=== PATIENT | male | born 1950 | race Hispanic/Latino ===

== ENCOUNTER 2017-02-09 08:46 | Emergency (ER) | payer MEDICARE, BC ==
[2017-02-09 08:46] VITALS: PULSE 52
[2017-02-09 08:52] VITALS: BP 128/80; PULSE 85; RESP 16; TEMP 97.8; O2SAT 99; BMI 29.2
--- NOTE | 2017-02-09 09:36 | ED PDOC ---
Arrival/HPI - General Chief Complaint: Abdominal Pain Time Seen by Provider: 02/09/17 08:58 Historian: Patient - History of Present Illness Narrative History of Present Illness (Text): 02/09/17 09:28 Titus Sunshine is a 66 year old male, with a history of chronic kidney disease, neurogenic bladder, recurrent urinary tract infection, CAD, peripheral vascular disease, diabetes, and colovesical fistula, presents to the emergency department for evaluation of a bulge at colostomy reversal incision site. States he has been noticing the bulge on and off over the past week, but denies any pain to the area. Reports he has normal bowel movements. Denies any nausea, vomiting, diarrhea, fever, chills, chest pain, difficulty breathing, urinary symptoms, or any other complaints at this time. Time/Duration: 1 week Symptom Onset: Gradual Symptom Course: Improving Severity Level: Mild Activities at Onset: Light Context: Home Past Medical History - Provider Review Nursing Documentation Reviewed: Yes - Infectious Disease Hx of Infectious Diseases: None - Tetanus Immunization Tetanus Immunization: Unknown - Cardiac Hx Cardiac Disorders: Yes (CAD; Afib) Hx Hypertension: Yes - Pulmonary Hx Respiratory Disorders: Yes Hx Chronic Obstructive Pulmonary Disease (COPD): Yes - Neurological Hx Neurological Disorder: Yes HX Cerebrovascular Accident: Yes - HEENT Hx HEENT Disorder: Yes (wears glasses) - Renal Hx Renal Disorder: Yes Hx Renal Failure: Yes (CKD) - Endocrine/Metabolic Hx Endocrine Disorders: Yes Hx Diabetes Mellitus Type 2: Yes - Hematological/Oncological Hx Blood Disorders: Yes (clumping platlets) - Integumentary Hx Dermatological Disorder: Yes Other/Comment: Left lower extremity partial amplutation. left lower back/ buttock 2cm round healed wound, not open, large scar to center of abdomen from previous colonoscopy reversal, not open - Musculoskeletal/Rheumatological Hx Musculoskeletal Disorders: Yes Hx Falls: Yes - Gastrointestinal Hx Gastrointestinal Disorders: Yes - Genitourinary/Gynecological Hx Genitourinary Disorders: No Hx Reproductive Disorders: No - Psychiatric Hx Psychophysiologic Disorder: No Hx Depression: No Hx Emotional Abuse: No Hx Physical Abuse: No Hx Substance Use: No - Surgical History Hx Amputation: Yes (all toes left foot, rt great toe) Hx Cardiac Catheterization: Yes Hx Coronary Stent: Yes - Anesthesia Hx Anesthesia Reactions: No Hx Malignant Hyperthermia: No - Suicidal Assessment Feels Threatened In Home Enviroment: No Family/Social History - Physician Review Nursing Documentation Reviewed: Yes Family/Social History: No Known Family HX Smoking Status: Former Smoker Hx Alcohol Use: Yes Hx Substance Use: No Hx Substance Use Treatment: No Allergies/Home Meds Allergies/Adverse Reactions: Allergies ceftriaxone sodium [From Rocephin] Allergy (Verified 02/09/17 08:53) ITCHING Home Medications: Home Meds Medication Instructions Recorded Confirmed Ascorbate Calcium [Vitamin C] 500 mg PO DAILY 07/11/16 02/09/17 Digoxin [Lanoxin] 125 mcg PO DAILY 07/11/16 02/09/17 Metoprolol Tartrate [Lopressor] 50 mg PO BID 07/11/16 02/09/17 Furosemide [Lasix] 40 mg PO QAM 09/17/16 02/09/17 Drisdol 50,000 Intl Units Cap 50,000 units PO QWK 09/18/16 02/09/17 Sevelamer [Renagel] 800 mg PO ACTID 09/18/16 02/09/17 amLODIPine [Norvasc] 5 mg PO DAILY 09/18/16 02/09/17 Physical Exam - Physical Exam Narrative Physical Exam (Text): - Review of Systems Constitutional: Normal. absent: Fatigue, Weight Change, Fevers Eyes: Normal ENT: Normal Respiratory: Normal absent: SOB, Cough, Sputum Cardiovascular: Normal absent: Chest pain, Palpitations, Syncope Gastrointestinal: Present: Incisional hernia absent: Abdominal pain, Diarrhea, Nausea, Vomiting Genitourinary: Normal. absent: Dysuria, Frequency, Hematuria Musculoskeletal: Normal. absent: Arthralgias, Back Pain, Neck Pain Skin: Normal Neurological: Normal absent: Focal Weakness Endocrine: Normal Hemo/Lymphatic: Normal Psychiatric: Normal - Physical exam Patient appears age appropriate, speaking full sentences without difficulty - Systems Exam Head: Present: Atraumatic, Normocephalic Pupils: Present: PERRL Extraocular Muscles: Present: EOMI Conjunctiva: Present: Normal Mouth: Present: Moist Mucous Membranes Neck: Present: Normal Range of Motion. No: MIDLINE TENDERNESS, Paraspinal Tenderness Respiratory/Chest: Present: Clear to Auscultation, Good Air Exchange. No: Respiratory Distress, Accessory Muscle Use, Tachypneic Cardiovascular: Present: Regular Rate and Rhythm, Normal S1, S2, Peripheral Pulses Present. No: Murmurs Abdomen: Present: Normal Bowel Sounds, reducible incisional hernia which is non- tender No: Tenderness, Peritoneal Signs, Rebound, Guarding, Distention Back: Present: Normal Inspection. No: Midline Tenderness, Paraspinal Tenderness Upper Extremity: Present: Normal Inspection. No: Cyanosis, Edema Lower Extremity: Present: Normal Inspection. No: Edema Neurological: Present: GCS=15, Speech Normal, cranial nerves II through XII fully intact with no cerebellar abnormality, neuro-sensory fully intact. No focal neurological deficits. Skin: Present: Warm, Dry, Normal Color. No: Rashes Lymphatic: Present: OX3, NI, NC Psychiatric: Present: Alert, Oriented x 3, Normal Insight, Normal Concentration Vital Signs Reviewed: Yes Vital Signs Temp Pulse Resp BP Pulse Ox 02/09/17 08:47 97.8 F 85 16 128/80 99 Temperature: Afebrile Blood Pressure: Normal Pulse: Regular Respiratory Rate: Normal Appearance: Positive for: Well-Appearing, Non-Toxic, Comfortable Pain Distress: None Mental Status: Positive for: Alert and Oriented X 3 Medical Decision Making ED Course and Treatment: 02/09/17 09:37 Impression: A 66 year old male who presents to the emergency department complaining of incisional hernia for past week. Reports he has normal bowel movement without nausea or vomiting, reports good appetite and passing flatus. On PE, there is a reducible incisional hernia which is non-tender, otherwise unremarkable. Differential Diagnosis include but are not limited to: hernia Plan: -- CT abdomen Pelvis -- Reassess and disposition Progress Notes: 02/09/17 10:44 CT abdomen pelvis results reviewed: IMPRESSION: Extensive right nephrolithiasis with peripelvic and periureteral fat infiltration. Calculi extend into the renal pelvis with proximal right hydronephrosis. Findings severely worsened since the prior examination. Additional periureteral fat infiltration in the left proximal ureter. Anterior abdominal wall hernia containing omental fat and nonobstructed or strangulated bowel loops measuring roughly 11 centimeters in transverse dimension. 02/09/17 10:[address] renal read. Patient also complaining of increased urinary frequency. Will order Urinalysis and urine culture. evaluated the patient bedside, agrees with dc home. UA ordered. 02/09/17 11:07 pt will be dc'd home with abx for UTI Dr. Frost states pt has an appt with his urologist tmr pt tolerating PO, states he has no abd pain, feels comf being dc'd home with outpatient f/u Pt states he understands to return to the ER right away for new or worsening symptoms or for inability to f/u with PMD or specialist as instructed. Patient states that he fully agrees with and understands discharge instructions. States that he agrees with the plan and disposition. Verbalized and repeated discharge instructions and plan. I have given the patient opportunity to ask any additional questions. 02/09/17 11:59 due to pt's risk factors and previous PMHx, his rx changed to levaquin and electronically transferred to [facility] - Lab Interpretations Lab Results: Lab Results 02/09/17 10:49: Urine Color Yellow, Urine Appearance Cloudy, Urine pH 6.5, Ur Specific [place] 1.020, Urine Protein 100 H, Urine Glucose (UA) Negative, Urine Ketones Negative, Urine Blood Large H, Urine Nitrate Negative, Urine Bilirubin Negative, Urine Urobilinogen 0.2, Ur Leukocyte Esterase Moderate H, Urine RBC 15 - 20, Urine WBC Tntc, Ur Epithelial Cells 4 - 5 - RAD Interpretation Narrative RAD Interpretations (Text): PROCEDURE: CT Abdomen and Pelvis without intravenous contrast Interpreted by : Bryan Finch MD FINDINGS: LOWER THORAX: Unremarkable. LIVER: Unremarkable. No gross lesion or ductal dilatation. GALLBLADDER AND BILE DUCTS: Unremarkable. PANCREAS: Unremarkable. No gross lesion or ductal dilatation. SPLEEN: Unremarkable. ADRENALS: Unremarkable. No mass. KIDNEYS AND URETERS: Extensive right nephrolithiasis with peripelvic and periureteral fat infiltration. Calculi extend into the renal pelvis with proximal right hydronephrosis. Findings severely worsened since the prior examination. Additional periureteral fat infiltration in the left proximal ureter. VASCULATURE: Unremarkable. No aortic aneurysm. BOWEL: Unremarkable. No obstruction. No gross mural thickening. APPENDIX: Unremarkable. Normal appendix. PERITONEUM: Unremarkable. No free fluid. No free air. LYMPH NODES: Unremarkable. No enlarged lymph nodes. BLADDER: Diffuse circumferential bladder wall thickening . REPRODUCTIVE: Unremarkable. BONES: No acute fracture. OTHER FINDINGS: Anterior abdominal wall hernia containing omental fat and nonobstructed or strangulated bowel loops measuring roughly 11 centimeters in transverse dimension. IMPRESSION: Extensive right nephrolithiasis with peripelvic and periureteral fat infiltration. Calculi extend into the renal pelvis with proximal right hydronephrosis. Findings severely worsened since the prior examination. Additional periureteral fat infiltration in the left proximal ureter. Anterior abdominal wall hernia containing omental fat and nonobstructed or strangulated bowel loops measuring roughly 11 centimeters in transverse dimension. Radiology Orders: 02/09/17 09:08 ABD & PELVIS W/O PO OR IV CONT [CT] Stat Purchasing/Receiving: Radiologist - Mosheibgautam Statement The provider has reviewed the documentation as recorded by the Joao Angeles Provider Attestation: All medical record entries made by the Joao were at my direction and personally dictated by me. I have reviewed the chart and agree that the record accurately reflects my personal performance of the history, physical exam, medical decision making, and the department course for this patient. I have also personally directed, reviewed, and agree with the discharge instructions and disposition. Disposition/Present on Arrival - Present on Arrival Any Indicators Present on Arrival: No History of DVT/PE: No History of Uncontrolled Diabetes: Yes Urinary Catheter: No History of Decub. Ulcer: No History Surgical Site Infection Following: CABG - Mediastinitis - Disposition Have Diagnosis and Disposition been Completed?: Yes Diagnosis: Hernia Disposition: HOME/ ROUTINE Disposition Time: 11:23 Patient Plan: Discharge Condition: GOOD Discharge Instructions (ExitCare): Incisional Hernia (GEN), Urinary Tract Infection in Men (ED) Additional Instructions: PLEASE RETURN TO THE EMERGENCY DEPARTMENT FOR NEW OR WORSENING SYMPTOMS. RETURN RIGHT AWAY IF YOU CANNOT FOLLOW UP WITH YOUR PRIMARY CARE DOCTOR, CLINIC, OR SPECIALIST IN 1-2 DAYS. Prescriptions: levoFLOXacin [Levaquin] 750 mg PO DAILY #5 tab Referrals: Ana Frost MD [Primary Care Provider] - Follow up with primary Darien Moncada MD [Staff Provider] - Follow up with primary
--- NOTE | 2017-02-09 10:08 | CT ---
PROCEDURE: CT Abdomen and Pelvis without intravenous contrast HISTORY: hernia COMPARISON: 01/22/2016. TECHNIQUE: Technique. Contrast Dose: Radiation dose: Total exam DLP = 853 mGy-cm. This CT exam was performed using one or more of the following dose reduction techniques: Automated exposure control, adjustment of the mA and/or kV according to patient size, and/or use of iterative reconstruction technique. FINDINGS: LOWER THORAX: Unremarkable. LIVER: Unremarkable. No gross lesion or ductal dilatation. GALLBLADDER AND BILE DUCTS: Unremarkable. PANCREAS: Unremarkable. No gross lesion or ductal dilatation. SPLEEN: Unremarkable. ADRENALS: Unremarkable. No mass. KIDNEYS AND URETERS: Extensive right nephrolithiasis with peripelvic and periureteral fat infiltration. Calculi extend into the renal pelvis with proximal right hydronephrosis. Findings severely worsened since the prior examination. Additional periureteral fat infiltration in the left proximal ureter. VASCULATURE: Unremarkable. No aortic aneurysm. BOWEL: Unremarkable. No obstruction. No gross mural thickening. APPENDIX: Unremarkable. Normal appendix. PERITONEUM: Unremarkable. No free fluid. No free air. LYMPH NODES: Unremarkable. No enlarged lymph nodes. BLADDER: Diffuse circumferential bladder wall thickening . REPRODUCTIVE: Unremarkable. BONES: No acute fracture. OTHER FINDINGS: Anterior abdominal wall hernia containing omental fat and nonobstructed or strangulated bowel loops measuring roughly 11 centimeters in transverse dimension. IMPRESSION: Extensive right nephrolithiasis with peripelvic and periureteral fat infiltration. Calculi extend into the renal pelvis with proximal right hydronephrosis. Findings severely worsened since the prior examination. Additional periureteral fat infiltration in the left proximal ureter. Anterior abdominal wall hernia containing omental fat and nonobstructed or strangulated bowel loops measuring roughly 11 centimeters in transverse dimension.
[2017-02-09 10:57] LABS: PH,URINE 6.5 (4.7-8.0); URINE BILIRUBIN NEGATIVE (NEGATIVE); URINE BLOOD LARGE (NEGATIVE); URINE GLUCOSE (UA) NEGATIVE (NEGATIVE); URINE KETONE NEGATIVE (NEGATIVE); URINE LEUKOCYTE ESTERASE MODERATE Leu/uL (NEGATIVE); URINE PROTEIN 100 mg/dL (<30 mg/dL); URINE UROBILINOGEN 0.2 E.U./dL (<1 E.U./dL)
[2017-02-09 11:02] LABS: URINE APPEARANCE CLOUDY (CLEAR); URINE COLOR YELLOW (YELLOW); URINE RBC 15 - 20 /hpf (0-2); URINE WBC TNTC /hpf (0-6)
--- NOTE | 2017-02-09 16:05 | CP.PCM.CON ---
History of Present Illness - History of Present Illness History of Present Illness: General Surger Consult note for Dr. Moncada Consult reason: incisional hernia Pt is a 66 y/o M with PMH including rectal fistula s/p colostomy, rectal fistula repair, and colostomy reversal with colostomy hernia repair over 1 year ago who presented to the ED with an abdominal hernia. Patient states that he first felt a bulge in his ventral abdomen one week ago and that he noticed it was getting more firm. He spoke to his primary doctor, Dr. Frost, who suggested he come to the ED to get evaluated. Patient reports hernia does not get stuck and is not tender. Patient denies any abdominal pain, nausea, vomiting , diarrhea, constipation, fevers, chills, chest pain, and SOB. Reports regular BM's with stool of normal color and consistency without hematochezia or melena. CT of abdomen and pelvis in the ED showed a large incisional hernia containing bowel without any signs of obstruction, and extensive right nephrolithiasis. PMH: CAD, CKD, neurogenic bladder, recurrent UTI's, PVD, DM PSH: colostomy creation, rectal fistula repair, colostomy reversal with colostomy hernia repair ALL: ceftriaxone Review of Systems - Review of Systems All systems: reviewed and no additional remarkable complaints except (as per HPI ) - Constitutional Constitutional: As Per HPI - Cardiovascular Cardiovascular: absent: Chest Pain, Chest Pain at Rest - Respiratory Respiratory: absent: Cough, Dyspnea, Wheezing - Gastrointestinal Gastrointestinal: As Per HPI - Genitourinary Genitourinary: Urinary Frequency, Freq UTI. absent: Dysuria, Hematuria - Musculoskeletal Musculoskeletal: Radiating Pain into Limb. absent: Numbness, Tingling - Integumentary Integumentary: absent: Lesions, Skin Ulcer - Neurological Neurological: absent: Numbness, Tingling - Endocrine Endocrine: Polyuria Past Patient History - Infectious Disease Hx of Infectious Diseases: None - Tetanus Immunizations Tetanus Immunization: Unknown - Past Social History Smoking Status: Former Smoker - CARDIAC Hx Cardiac Disorders: Yes (CAD; Afib) Hx Hypertension: Yes - PULMONARY Hx Respiratory Disorders: Yes Hx Chronic Obstructive Pulmonary Disease (COPD): Yes - NEUROLOGICAL Hx Neurological Disorder: Yes HX Cerebrovascular Accident: Yes - HEENT Hx HEENT Problems: Yes (wears glasses) - RENAL Hx Chronic Kidney Disease: Yes Hx Renal Failure: Yes (CKD) - ENDOCRINE/METABOLIC Hx Endocrine Disorders: Yes Hx Diabetes Mellitus Type 2: Yes - HEMATOLOGICAL/ONCOLOGICAL Hx Blood Disorders: Yes (clumping platlets) - INTEGUMENTARY Hx Dermatological Problems: Yes Other/Comment: Left lower extremity partial amplutation. left lower back/ buttock 2cm round healed wound, not open, large scar to center of abdomen from previous colonoscopy reversal, not open - MUSCULOSKELETAL/RHEUMATOLOGICAL Hx Musculoskeletal Disorders: Yes Hx Falls: Yes - GASTROINTESTINAL Hx Gastrointestinal Disorders: Yes - GENITOURINARY/GYNECOLOGICAL Hx Genitourinary Disorders: No Hx Reproductive Disorders: No - PSYCHIATRIC Hx Psychophysiologic Disorder: No Hx Depression: No Hx Emotional Abuse: No Hx Physical Abuse: No Hx Substance Use: No - SURGICAL HISTORY Hx Amputation: Yes (all toes left foot, rt great toe) Hx Cardiac Catheterization: Yes Hx Coronary Stent: Yes - ANESTHESIA Hx Anesthesia Reactions: No Hx Malignant Hyperthermia: No Meds Home Medications: Home Medication List Medication Instructions Recorded Confirmed Type levoFLOXacin [Levaquin] 750 mg PO DAILY #5 tab 02/09/17 Rx Allergies/Adverse Reactions: Allergies Allergy/AdvReac Type Severity Reaction Status Date / Time ceftriaxone sodium Allergy ITCHING Verified 02/09/17 08:53 [From Rocephin] Physical Exam - Constitutional Appears: Well, Non-toxic, No Acute Distress - Head Exam Head Exam: ATRAUMATIC, NORMOCEPHALIC - Eye Exam Eye Exam: Normal appearance. absent: Conjunctival injection, Scleral icterus - ENT Exam ENT Exam: Mucous Membranes Moist, Normal Oropharynx - Respiratory Exam Respiratory Exam: NORMAL BREATHING PATTERN. absent: Accessory Muscle Use, Respiratory Distress - Cardiovascular Exam Cardiovascular Exam: RRR - GI/Abdominal Exam GI & Abdominal Exam: Hernia (large incisional hernia on the central abdomen just superior to the umbilicus, reducible, non-tender, non-erythematous), Soft. absent: Distended, Tenderness - Extremities Exam Extremities exam: Positive for: pedal pulses present. Negative for: calf tenderness, pedal edema - Back Exam Back exam: NORMAL INSPECTION. absent: CVA tenderness (L), CVA tenderness (R) - Neurological Exam Neurological exam: Alert, Oriented x3 - Psychiatric Exam Psychiatric exam: Normal Affect, Normal Mood - Skin Skin Exam: Dry, Intact, Normal Color, Warm Results - Vital Signs Recent Vital Signs: Last Vital Signs Temp 97.8 F 02/09/17 08:47 Pulse 85 02/09/17 08:47 Resp 16 02/09/17 08:47 BP 128/80 02/09/17 08:47 Pulse Ox 99 02/09/17 08:47 - Labs Labs: Laboratory Results - last 24 hr 02/09/17 10:49 Urine Color Yellow Urine Appearance Cloudy Urine pH 6.5 Ur Specific [place] 1.020 Urine Protein 100 H Urine Glucose (UA) Negative Urine Ketones Negative Urine Blood Large H Urine Nitrate Negative Urine Bilirubin Negative Urine Urobilinogen 0.2 Ur Leukocyte Esterase Moderate H Urine RBC 15 - 20 Urine WBC Tntc Ur Epithelial Cells 4 - 5 Assessment & Plan - Assessment and Plan (Free Text) Assessment: 66M with a PSH of a colostomy for a rectal fistula and colostomy reversal 1 year ago with a current abdominal incisional hernia Hernia is asymptomatic No sign of bowel obstruction on CT Normal bowel function intact Plan: No indication for emergent surgical intervention Patient should follow up with Dr. Moncada in his office for further evaluation and planning Thank you for this consult Discussed with Dr. Antwan Ott, PGY1
== END 2017-02-09 11:57 | disposition home or self-care (01) ==
LOC: ED 08:46
DX: K43.2 Incisional hernia without obstruction or gangrene (principal); I12.9 Hypertensive chronic kidney disease with stage 1 through stage 4 chronic kidney disease, or unspecified chronic kidney disease; N18.9 Chronic kidney disease, unspecified; Z87.891 Personal history of nicotine dependence

== ENCOUNTER 2017-12-06 08:29 | Inpatient (IN) | payer MEDICARE, BC ==
[2017-12-06 08:30] VITALS: PULSE 52; BMI 29.2
--- NOTE | 2017-12-06 09:50 | ED PDOC ---
Arrival/HPI - General Chief Complaint: Male Genitourinary Time Seen by Provider: 12/06/17 09:39 Historian: Patient - History of Present Illness Narrative History of Present Illness (Text): 12/06/17 09:49 Titus Sunshine is a 67 year old male, with a history of chronic kidney disease, neurogenic bladder, recurrent urinary tract infection, CAD, peripheral vascular disease, diabetes, and colovesical fistula, presents to the emergency department for evaluation of hematuria x 4 weeks. Patient also noted burning sensation when he urinates within last 2 days. Patient also noted b/l groin rash x 3 weeks. Patient denies fever, chills, flank pain, n/v, abdominal or pelvic pain. Time/Duration: Other (see hpi) Context: Home Past Medical History - Provider Review Nursing Documentation Reviewed: Yes - Infectious Disease Hx of Infectious Diseases: None - Tetanus Immunization Tetanus Immunization: Unknown - Cardiac Hx Cardiac Disorders: Yes (CAD; Afib) Hx Hypertension: Yes - Pulmonary Hx Respiratory Disorders: Yes Hx Chronic Obstructive Pulmonary Disease (COPD): Yes - Neurological Hx Neurological Disorder: Yes HX Cerebrovascular Accident: Yes - HEENT Hx HEENT Disorder: Yes (wears glasses) - Renal Hx Renal Disorder: Yes Hx Renal Failure: Yes (CKD) - Endocrine/Metabolic Hx Endocrine Disorders: Yes Hx Diabetes Mellitus Type 2: Yes - Hematological/Oncological Hx Blood Disorders: Yes (clumping platlets) - Integumentary Hx Dermatological Disorder: Yes - Musculoskeletal/Rheumatological Hx Musculoskeletal Disorders: Yes Hx Falls: Yes - Gastrointestinal Hx Gastrointestinal Disorders: Yes Hx Colostomy: Yes - Genitourinary/Gynecological Hx Genitourinary Disorders: No Hx Reproductive Disorders: No - Psychiatric Hx Psychophysiologic Disorder: No Hx Depression: No Hx Emotional Abuse: No Hx Physical Abuse: No Hx Substance Use: No - Surgical History Hx Amputation: Yes (all toes left foot, rt great toe) Hx Cardiac Catheterization: Yes Hx Coronary Stent: Yes - Anesthesia Hx Anesthesia Reactions: No Hx Malignant Hyperthermia: No - Suicidal Assessment Feels Threatened In Home Enviroment: No Family/Social History - Physician Review Nursing Documentation Reviewed: Yes Family/Social History: Other (noncontributory) Smoking Status: Former Smoker Hx Alcohol Use: Yes Hx Substance Use: No Hx Substance Use Treatment: No Allergies/Home Meds Allergies/Adverse Reactions: Allergies ceftriaxone sodium [From Rocephin] Allergy (Verified 12/06/17 09:37) ITCHING Home Medications: Home Meds Medication Instructions Recorded Confirmed Metoprolol Tartrate [Lopressor] 75 mg PO BID 07/11/16 12/06/17 Furosemide [Lasix] 40 mg PO QAM 09/17/16 12/06/17 Drisdol 50,000 Intl Units Cap 50,000 units PO QWK 09/18/16 12/06/17 Sevelamer [Renagel] 800 mg PO ACTID 09/18/16 12/06/17 amLODIPine [Norvasc] 5 mg PO DAILY 09/18/16 12/06/17 Review of Systems - Review of Systems Constitutional: Normal. absent: Fatigue, Weight Change, Fevers Eyes: Normal ENT: Normal Respiratory: Normal Cardiovascular: Normal Gastrointestinal: Normal. absent: Abdominal Pain, Constipation, Diarrhea, Nausea, Vomiting Genitourinary Male: Dysuria, Other ((+) hematuria) Musculoskeletal: Normal. absent: Back Pain, Neck Pain Skin: Rash. absent: Cellulitis Neurological: Normal Endocrine: Normal Hemo/Lymphatic: Normal Psychiatric: Normal Physical Exam Vital Signs Temp Pulse Resp BP Pulse Ox 12/06/17 14:35 84 18 99 12/06/17 11:37 86 18 101/65 99 12/06/17 09:04 97.6 F 90 18 99/64 L 99 Temperature: Afebrile Blood Pressure: Normal Pulse: Regular Respiratory Rate: Normal Appearance: Positive for: Well-Appearing, Non-Toxic, Comfortable Pain Distress: None Mental Status: Positive for: Alert and Oriented X 3 - Systems Exam Head: Present: Atraumatic, Normocephalic Pupils: Present: PERRL Extroacular Muscles: Present: EOMI Conjunctiva: Present: Normal Mouth: Present: Moist Mucous Membranes Neck: Present: Normal Range of Motion Respiratory/Chest: Present: Clear to Auscultation, Good Air Exchange. No: Respiratory Distress, Accessory Muscle Use Cardiovascular: Present: Regular Rate and Rhythm, Normal S1, S2. No: Murmurs Abdomen: Present: Normal Bowel Sounds. No: Tenderness, Distention, Peritoneal Signs, Rebound, Guarding Genitourinary Male: Present: Other (B/L cutaneous candidiasis. No penile discharge or bleeding). No: Testicle Tenderness, Penile Swelling, Erythema, Testicle Swelling Back: Present: Normal Inspection Upper Extremity: Present: Normal Inspection, Normal ROM. No: Cyanosis, Edema Lower Extremity: Present: Normal Inspection, Normal ROM. No: Edema Neurological: Present: GCS=15, CN II-XII Intact, Speech Normal, Motor Func Grossly Intact, Normal Sensory Function, Normal Cerebellar Funct, Gait Normal Skin: Present: Warm, Dry, Normal Color. No: Rashes Psychiatric: Present: Alert, Oriented x 3, Normal Insight, Normal Concentration Medical Decision Making ED Course and Treatment: 12/06/17 12:[address] Bergman ID doctor regarding pulmonary infiltrates, cystitis. He said he knows patient well. He stated he will put the ABX order. 12/06/17 13:[address] Frost regarding patient complain , and medical findings. He recommended to call Dr. Wing to admit patient under her service. 12/06/17 14:[address] Wing regarding patient complains, ct findings, labs. She agreed with plan for admission 12/06/17 14:[address] Ochoa, vocational rehabilitation specialist. She stated she came to see patient earlier today, and she is aware of admission. Re-evaluation Time: 12:53 Reassessment Condition: Re-examined, Improving,but remains with symptoms - Lab Interpretations Lab Results: 12/06/17 11:40 12/06/17 11:40 Lab Results 12/06/17 11:40: pO2 42, VBG pH 7.22 L, VBG pCO2 42.0, VBG HCO3 17.2 L, VBG Total CO2 18.5 L, VBG O2 Sat (Calc) 78.9 H, VBG Base Excess -10.1 L, VBG Potassium 4.9, Sodium 138.0, Chloride 112.0 H, Glucose 119 H, Lactate 0.9, FiO2 21.0, Venous Blood Potassium 4.9 12/06/17 11:40: Sodium 142, Chloride 114 H, Potassium 4.8, Carbon Dioxide 15 L, Anion Gap 18, BUN 64 H, Creatinine 5.1 H, Est GFR ( Amer) 14, Est GFR ( Non-Af Amer) 11, Random Glucose 121 H, Calcium 9.2, Total Bilirubin 0.3, AST 18 , ALT 16, Alkaline Phosphatase 86, Total Protein 8.5 H, Albumin 3.8, Globulin 4.7, Albumin/Globulin Ratio 0.8 L, Lipase 236 12/06/17 11:40: PT 18.2 H, INR 1.57 H, APTT 35.0 12/06/17 11:40: WBC 5.4 D, RBC 3.49 L, Hgb 10.5 L, Hct 32.1 L, MCV 92.0, MCH 30.1, MCHC 32.7, RDW 14.2, Plt Count 163, MPV 9.3, Gran % 67.5, Lymph % (Auto) 18.0 L, [place] % (Auto) 10.2 H, Eos % (Auto) 3.9, Baso % (Auto) 0.4, Gran # 3.63, Lymph # (Auto) 1.0 L, [place] # (Auto) 0.6, Eos # (Auto) 0.2, Baso # (Auto) 0.02 12/06/17 10:00: Urine Color Light brown, Urine Appearance Cloudy, Urine pH 6.0, Ur Specific [place] 1.025, Urine Protein >=300 H, Urine Glucose (UA) Negative, Urine Ketones Trace H, Urine Blood Large H, Urine Nitrate Positive H, Urine Bilirubin Small H, Urine Urobilinogen 1.0 H, Ur Leukocyte Esterase Large H, Urine RBC Tntc, Urine WBC Tntc, Urine Bacteria Large I have reviewed the lab results: Yes Interpretation: Abnormal lab values - RAD Interpretation Narrative RAD Interpretations (Text): PROCEDURE: CT Abdomen and Pelvis without intravenous contrast HISTORY: hematuria COMPARISON: 02/09/2017 TECHNIQUE: Without contrast.. Contrast Dose: 0 Radiation dose: Total exam DLP = 893.17 mGy-cm. This CT exam was performed using one or more of the following dose reduction techniques: Automated exposure control, adjustment of the mA and/or kV according to patient size, and/or use of iterative reconstruction technique. FINDINGS: LOWER THORAX: Right middle lobe pulmonary infiltrate. New since prior examination. Mild cardiomegaly. Permanent pacemaker. LIVER: Unremarkable. No gross lesion or ductal dilatation. GALLBLADDER AND BILE DUCTS: Gallbladder contracted. No calcified gallstones. PANCREAS: Unremarkable. No gross lesion or ductal dilatation. SPLEEN: Unremarkable. ADRENALS: Unremarkable. No mass. KIDNEYS AND URETERS: Previously noted large right upper pole renal calculi are largely resolved. There are innumerable calculi within the right renal pelvis and proximal right ureter. Right lower pole nonobstructing calculi. Mild right hydronephrosis. Extensive infiltration of the fat about the right renal pelvis and proximal right ureter common nonspecific. No renal mass. No left renal calculus or hydronephrosis. No perinephric fluid. VASCULATURE: Unremarkable. No aortic aneurysm. BOWEL: Unremarkable. No obstruction. No gross mural thickening. APPENDIX: Unremarkable. Normal appendix. PERITONEUM: Diastases recti. No argelia ventral hernia. LYMPH NODES: Unremarkable. No enlarged lymph nodes. BLADDER: Thickened bladder wall, slightly irregular. Consider further evaluation to rule out neoplasm or cystitis. REPRODUCTIVE: Status post hysterectomy BONES: No acute fracture. Multilevel degenerative disc disease. OTHER FINDINGS: None. IMPRESSION: New right middle lobe pulmonary infiltrate. Rule out pneumonia. Mild right hydronephrosis with multiple calculi in renal pelvis and proximal right ureter. Decrease in the extent of large right upper pole calculi noted on prior examination. Question is raised of possible prior interval ESWL infiltration of right peripelvic and proximal ureteral fat, nonspecific.Mildly irregular thickening of bladder wall. Rule out cystitis or neoplasm. Additional minor findings as above. Radiology Orders: 12/06/17 09:56 ABD & PELVIS W/O PO OR IV CONT [CT] Stat 12/06/17 12:43 CHEST PORTABLE [RAD] Stat - EKG Interpretation Interpreted by ED Physician: Yes (NSR @ 79bpm. No ST changes) Type: 12 lead EKG Comparison: No previous EKG avail. - Medication Orders Current Medication Orders: Meropenem 250 mg/ Sodium (Chloride) 100 mls @ 100 mls/hr IVPB Q12H [facility] PRN Reason: Protocol Stop: 12/15/17 13:01 Last Admin: 12/06/17 13:40 Dose: 100 mls/hr eMAR Start Stop Document 12/06/17 13:40 RG (Rec: 12/06/17 13:49 RG [id number] Intravenous Solution Start Date 12/06/17 Start Time 13:40 End Date 12/06/17 End time 14:51 Total Infusion Time 71 Sodium Bicarbonate 50 meq/ (Sodium Chloride) 1,050 mls @ 80 mls/hr IV .[id number] [facility] Discontinued Medications Nystatin (Mycostatin Oint) 1 gm TOP ONCE ONE Stop: 12/06/17 12:45 Last Admin: 12/06/17 13:47 Dose: 1 gm Disposition/Present on Arrival - Present on Arrival Any Indicators Present on Arrival: No History of DVT/PE: No History of Uncontrolled Diabetes: Yes Urinary Catheter: No History of Decub. Ulcer: No History Surgical Site Infection Following: CABG - Mediastinitis - Disposition Have Diagnosis and Disposition been Completed?: Yes Diagnosis: Cystitis, Pneumonia, Cutaneous candidiasis Disposition: HOSPITALIZED Disposition Time: 15:06 Patient Plan: Admission Patient Problems: Current Active Problems Problem Status Onset Cystitis Acute Pneumonia Acute Condition: STABLE
[2017-12-06 10:24] LABS: URINE BILIRUBIN SMALL (NEGATIVE); URINE BLOOD LARGE (NEGATIVE); URINE GLUCOSE (UA) NEGATIVE (NEGATIVE); URINE LEUKOCYTE ESTERASE LARGE Leu/uL (NEGATIVE); URINE NITRATE POSITIVE (NEGATIVE); URINE PROTEIN >=300 mg/dL (<30 mg/dL)
[2017-12-06 10:25] LABS: URINE APPEARANCE CLOUDY (CLEAR); URINE COLOR LIGHT BROWN (YELLOW)
[2017-12-06 10:32] LABS: URINE BACTERIA LARGE (NEG); URINE RBC TNTC /hpf (0-2); URINE WBC TNTC /hpf (0-6)
[2017-12-06 12:10] LABS: VENOUS BLOOD GAS BASE EXCESS -10.1 mmol/L (0.0-2.0); VENOUS BLOOD GAS PO2 42 mm/Hg (30-55); VENOUS BLOOD PH 7.22 (7.32-7.43)
[2017-12-06 12:14] LABS: ALB/GLOB RATIO 0.8 (1.1-1.8); ALBUMIN 3.8 g/dL (3.0-4.8); CALCIUM 9.2 mg/dL (8.4-10.5)
[2017-12-06 12:30] LABS: BASO # 0.02 K/mm3 (0.0-2.0); BASO % 0.4 % (0.0-3.0); EOS # 0.2 (0.0-0.7); EOS % 3.9 % (1.5-5.0); GRAN # 3.63 (1.4-6.5); GRAN % 67.5 % (50.0-68.0); HEMOGLOBIN 10.5 g/dL (14.0-18.0); MEAN CORPUSCULAR HEMOGLOBIN 30.1 pg (25.0-35.0); MEAN CORPUSCULAR HGB CONC 32.7 g/dl (31.0-37.0); MEAN PLATELET VOLUME 9.3 fl (7.0-11.0); MONO # 0.6 (0.1-0.6); MONO % 10.2 % (1.0-6.0); RBC 3.49 10^6/uL (3.5-6.1); RED CELL DISTRIBUTION WIDTH 14.2 % (11.5-14.5); WHITE BLOOD COUNT 5.4 10^3/ul (4.5-11.0)
[2017-12-06 12:34] LABS: INR 1.57 (0.93-1.08); PROTHROMBIN TIME 18.2 SECONDS (9.4-12.5)
--- NOTE | 2017-12-06 12:39 | CT ---
PROCEDURE: CT Abdomen and Pelvis without intravenous contrast HISTORY: hematuria COMPARISON: 02/09/2017 TECHNIQUE: Without contrast.. Contrast Dose: 0 Radiation dose: Total exam DLP = 893.17 mGy-cm. This CT exam was performed using one or more of the following dose reduction techniques: Automated exposure control, adjustment of the mA and/or kV according to patient size, and/or use of iterative reconstruction technique. FINDINGS: LOWER THORAX: Right middle lobe pulmonary infiltrate. New since prior examination. Mild cardiomegaly. Permanent pacemaker. LIVER: Unremarkable. No gross lesion or ductal dilatation. GALLBLADDER AND BILE DUCTS: Gallbladder contracted. No calcified gallstones. PANCREAS: Unremarkable. No gross lesion or ductal dilatation. SPLEEN: Unremarkable. ADRENALS: Unremarkable. No mass. KIDNEYS AND URETERS: Previously noted large right upper pole renal calculi are largely resolved. There are innumerable calculi within the right renal pelvis and proximal right ureter. Right lower pole nonobstructing calculi. Mild right hydronephrosis. Extensive infiltration of the fat about the right renal pelvis and proximal right ureter common nonspecific. No renal mass. No left renal calculus or hydronephrosis. No perinephric fluid. VASCULATURE: Unremarkable. No aortic aneurysm. BOWEL: Unremarkable. No obstruction. No gross mural thickening. APPENDIX: Unremarkable. Normal appendix. PERITONEUM: Diastases recti. No argelia ventral hernia. LYMPH NODES: Unremarkable. No enlarged lymph nodes. BLADDER: Thickened bladder wall, slightly irregular. Consider further evaluation to rule out neoplasm or cystitis. REPRODUCTIVE: Status post hysterectomy BONES: No acute fracture. Multilevel degenerative disc disease. OTHER FINDINGS: None. IMPRESSION: New right middle lobe pulmonary infiltrate. Rule out pneumonia. Mild right hydronephrosis with multiple calculi in renal pelvis and proximal right ureter. Decrease in the extent of large right upper pole calculi noted on prior examination. Question is raised of possible prior interval ESWL infiltration of right peripelvic and proximal ureteral fat, nonspecific.Mildly irregular thickening of bladder wall. Rule out cystitis or neoplasm. Additional minor findings as above.
[2017-12-06] MEDS ORDERED: Nystatin 100,000 Units/gm Oint(30 gm) TOP ONE (12:44)
--- NOTE | 2017-12-06 13:51 | RAD ---
HISTORY: admission, PNA COMPARISON: 09/11/2016 FINDINGS: LUNGS: No active pulmonary disease. PLEURA: No significant pleural effusion identified, no pneumothorax apparent. CARDIOVASCULAR: Permanent pacemaker OSSEOUS STRUCTURES: No significant abnormalities. VISUALIZED UPPER ABDOMEN: Normal. OTHER FINDINGS: None. IMPRESSION: No active disease.
[2017-12-06] MEDS ORDERED: Pneumococcal 23-Valent Vaccine IM ONE (22:43)
[2017-12-06] MEDS ORDERED: Influenza Vaccine 60 mcg/0.5 mL SYR (4YR UP) IM ONE (22:43)
--- NOTE | 2017-12-07 00:43 | CON ---
DATE: 12/06/2017 REASON FOR CONSULTATION: Acute kidney injury superimposed on chronic kidney disease stage IV, hematuria, dysuria. HISTORY OF PRESENTING ILLNESS: A 67-year-old male, known to us from outpatient followup. The patient was sent to the emergency room because of complaints of blood in the urine for the last couple of weeks. He is also complaining of some burning in the urine. He has a known history of staghorn calculi. There is a history of hydronephrosis. Also has a history of chronic kidney disease stage IV. He denies any fevers, chills. Denies any abdominal pain. Denies any nausea or vomiting. Appetite is good. He is found to have elevated BUN of 64 and creatinine of 5.1 in the emergency room. WBC is 5.4, hemoglobin is 10.5. Urinalysis shows greater than 300 of protein, large blood, nitrite positive, leukocyte esterase large. CT of the abdomen and pelvis shows right middle lobe infiltrate, large right upper pole renal calculus, which was seen in the prior CT, not seen now. Multiple kidney stones within the right renal pelvis. Right hydronephrosis. PAST MEDICAL AND SURGICAL HISTORY: NIDDM, hypertension, sepsis, right hydronephrosis, pyelonephritis, hypertension, chronic kidney disease stage 5, multiple episodes of acute kidney injury, valvular heart disease, history of colostomy, history of colostomy reversal. FAMILY HISTORY: Noncontributory. SOCIAL HISTORY: No smoking, no alcohol use, no IV drug abuse. ALLERGIES: ROCEPHIN. REVIEW OF SYSTEMS: All systems are reviewed, pertinent positives as mentioned in the history of presenting illness, rest unremarkable. MEDICATIONS AT HOME: Amlodipine 5, Renagel 800 t.i.d., Lopressor 75 b.i.d., Lasix 40, daily, Drisdol. PHYSICAL EXAMINATION: GENERAL: Elderly male, lying in bed. VITAL SIGNS: Blood pressure 101/65, heart rate 86, respiratory rate 18, temperature 97.6. HEENT: Normocephalic, atraumatic, positive pallor. NECK: Supple. No JVD. LUNGS: Bilateral equal air entry. No rales. CARDIAC: S1, S2, regular rate and rhythm, no murmur, no rub. ABDOMEN: Obese, distended, soft, nontender, bowel sounds present. EXTREMITIES: No lower extremity edema. INTAKE AND OUTPUT: Not charted. LABORATORY DATA: WBC 5.4, hemoglobin 10.5, hematocrit 32, platelets 163. Sodium 142, potassium 4.8, chloride 114, CO2 of 15, BUN 64, creatinine 5.1, glucose 121, calcium 9.2, AST 18, ALT 16, albumin 3.8. Urinalysis: Light brown, cloudy, pH 6.0, specific gravity 1.025, protein greater than 300, glucose negative, ketones trace, blood large, nitrite positive, leukocyte esterase large. CURRENT MEDICATIONS: Meropenem 1 g q. 12. ASSESSMENT: 1. Acute kidney injury superimposed on chronic kidney disease stage IV. 2. Right hydronephrosis, right pyelonephritis, urosepsis. 3. Apa-hdaghyr-fnuhgryzn diabetes mellitus. 4. Hypertension. 5. Anemia of chronic kidney disease. 6. Hypernatremia. 7. Hyperchloremic metabolic acidosis. PLAN: 1. Followup cultures. 2. Antibiotics to cover for pyelonephritis. 3. Hypotonic IV fluids. 4. Monitor fingersticks. 5. Insulin coverage. 6. Strict intake and output. 7. Avoid nephrotoxins. Thank you for the courtesy of this consultation. We will follow this patient closely with you. Ana Ochoa MD
[2017-12-07 07:42] LABS: BASO # 0.03 K/mm3 (0.0-2.0); BASO % 0.7 % (0.0-3.0); EOS # 0.3 (0.0-0.7); EOS % 6.7 % (1.5-5.0); GRAN # 2.18 (1.4-6.5); GRAN % 54.4 % (50.0-68.0); HEMOGLOBIN 9.5 g/dL (14.0-18.0); LYMPH # 1.1 (1.2-3.4); LYMPH % 26.2 % (22.0-35.0); MEAN CORPUSCULAR HEMOGLOBIN 29.1 pg (25.0-35.0); MEAN CORPUSCULAR HGB CONC 31.7 g/dl (31.0-37.0); MEAN PLATELET VOLUME 9.4 fl (7.0-11.0); MONO # 0.5 (0.1-0.6); RBC 3.26 10^6/uL (3.5-6.1); RED CELL DISTRIBUTION WIDTH 14.1 % (11.5-14.5)
--- NOTE | 2017-12-07 07:45 | HP ---
HISTORY OF PRESENT ILLNESS: The patient is 67 years old, patient of Dr. 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 Ana Frost that the patient is having hematuria intermittently for almost a week. He was advised by Dr. Frost and go to emergency room, but because of his personal reasons, he was unable to come to the hospital. The patient states that he has been suffering for these issues for long time, but recently for a week or two, he was having blood in the urine and some abdominal discomfort. He also has some burning sensation when he urinates along with bilateral inguinal rash. He denies any fever or chills. No history of nausea or vomiting. Does complain of decreased appetite. Complaining of back pain. PAST MEDICAL HISTORY: He has significant past medical history positive for; 1. Severe peripheral vascular disease. 2. Non-insulin dependent diabetes. 3. History of neurogenic bladder. 4. History of nephrolithiasis. 5. History of vesico-colic fistula repair. 6. Ventral hernia. 7. History of coronary artery disease, status post angioplasty. 8. Status post cardiac cath in August of 2016, by Dr. Leach and at that point, he has pacemaker placed that was single chamber. ALLERGIES: HE IS ALLERGIC TO ROCEPHIN. MEDICATIONS AT HOME: He is on amlodipine 5 mg daily, Renagel 800 three times a day, metoprolol 75 b.i.d., Lasix 40 mg daily, and vitamin D. SOCIAL HISTORY: He socially drinks and history of smoking in the past. REVIEW OF SYSTEMS: Significant for suprapubic discomfort, right flank discomfort, and having blood in the urine. PHYSICAL EXAMINATION: GENERAL: He seems to be awake, alert, oriented, able to communicative, able to give all his important symptoms. VITAL SIGNS: He is afebrile, pulse 90, respirations 18, blood pressure 99/64. LUNGS: Bilateral fair airflow. No rhonchi or crackles. HEART: S1 and S2 audible. ABDOMEN: Soft. He has ventral hernia, reducible. Nontender. No rebound. No guarding. NEUROLOGIC: He is awake, alert, able to communicate. EXTREMITIES: Bilateral legs, +1 edema. LABORATORY DATA: WBC 5.4, hemoglobin 10.5, hematocrit 32.1, and platelets of 163. PT 18.2 and INR 1.57. Chemistry: Sodium 142, potassium 4.8, chloride 114, CO2 of 15, BUN 64, creatinine 5.1, and blood sugar of 121. LFTs are within normal limits. Total protein is 8.5. Urinalysis shows positive nitrites, large blood, large leukocyte, wbc's too numerous to count. The patient has CT scan of the abdomen and pelvis done that shows new right middle lobe pulmonary infiltrate, mild right hydronephrosis with multiple calculi in the renal pelvis and proximal right ureter right upper pole calculus noted on the prior exam. ASSESSMENT: 1. Right nephrolithiasis. 2. Hematuria. 3. Right lower lobe infiltrate. 4. Ventral hernia. 5. Renal insufficiency. 6. Non-insulin dependent diabetes. PLAN: The patient has been started on IV fluids. He is currently on meropenem. We will monitor his blood sugar. Analgesics as needed. We will resume his usual medications. We will follow up his CBC and CMP in a.m. Out of bed to chair and we will reevaluate in a.m. Emmanuel Wing MD
[2017-12-07 08:24] LABS: CALCIUM 8.8 mg/dL (8.4-10.5)
--- NOTE | 2017-12-07 08:44 | CARD ---
APPROVED REPORT EKG Measurement Heart [id number] CT [id number] <Conclusion> Normal sinus rhythm Small q in 3 NSSTW changes
[2017-12-07] MEDS: Nystatin 100,000 Units/gm Topical Pow(15 gm) TOP SCH (18:12)
--- NOTE | 2017-12-07 22:55 | CON ---
DATE: LOCATION: The patient is seen earlier today in 563, bed 2. CHIEF COMPLAINT: Hematuria x1 day. 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 He had a colostomy. He has had cardiac stents. He has got a pacemaker. HE IS ALLERGIC TO CEFTRIAXONE. He was admitted now with hematuria. He had a CAT scan, had finding of a right middle lobe infiltrate on the CAT scan. The patient does have weakness, minimal cough, low-grade fevers. REVIEW OF SYSTEMS: Reveals no abdominal pain, diarrhea or constipation. No headaches or blurred vision. PAST MEDICAL HISTORY: Significant for kidney disease, kidney stones, peripheral vascular disease, diabetes mellitus, psoas abscess, vertebral abscess, MRSA bacteremia, atrial fibrillation, hypertension, coronary artery disease. PAST SURGICAL HISTORY: Significant for colostomy, cardiac cath with stent placement, pacemaker. ALLERGIES: THE PATIENT IS ALLERGIC TO CEFTRIAXONE. MEDICATIONS AT HOME: Amlodipine, Renagel, metoprolol, Lasix and Drisdol. PHYSICAL EXAMINATION GENERAL: He is in bed, in no acute distress. VITAL SIGNS: Temperature of 99.2, heart rate of 74, respiratory rate of 20, blood pressure is 117/70, it was down to 99/64. HEENT: Unremarkable. NECK: Supple. LUNGS: Have decreased breath sounds. HEART: Normal S1 and S2. ABDOMEN: Soft, nontender. No organomegaly. No rebound or guarding. No masses. LABORATORY DATA: Reveals a white count of 5.4, hemoglobin of 10, platelets of 163. The patient has 67 granulocytosis and coagulation is noted and chemistries reveals a BUN of 64, creatinine of 5.1, glucose is 121 and urinalysis is noted with ebe-[id number] count wbcs, ird-rwlbdinu-kc count rbcs, large bacteria, positive nitrites, large blood, small bilirubin, greater than 300 protein. The patient had a CAT scan of the abdomen and pelvis, which is read by Dr. Allen Hernandez, which reveals the patient does have a new right middle lobe pulmonary infiltrate and the patient also with right hydronephrosis and calculi in the renal pelvis and proximal right ureter. ASSESSMENT AND PLAN: A 67-year-old male with extensive past medical history, admitted now with hematuria. 1. Urinary tract infection and cystitis with a right hydronephrosis and a calculi in the proximal right ureter. 2. Right middle lobe infiltrate with community-acquired pneumonia. Since the patient is allergic to CEFTRIAXONE, we will treat the patient with meropenem and doxycycline. Pending blood cultures, urine cultures, sputum cultures. We will also order a procalcitonin and we will make further recommendations upon availability of initial pancultures, procalcitonin level and Urology evaluation. Joe Bergman MD
[2017-12-08 07:03] LABS: BASO # 0.02 K/mm3 (0.0-2.0); BASO % 0.5 % (0.0-3.0); EOS # 0.2 (0.0-0.7); EOS % 5.1 % (1.5-5.0); GRAN # 2.46 (1.4-6.5); GRAN % 62.3 % (50.0-68.0); HEMOGLOBIN 9.4 g/dL (14.0-18.0); LYMPH # 0.8 (1.2-3.4); MEAN CELL VOLUME 90.9 fl (80.0-105.0); MEAN CORPUSCULAR HEMOGLOBIN 29.6 pg (25.0-35.0); MEAN CORPUSCULAR HGB CONC 32.5 g/dl (31.0-37.0); MEAN PLATELET VOLUME 9.2 fl (7.0-11.0); MONO # 0.4 (0.1-0.6); MONO % 11.1 % (1.0-6.0); RBC 3.18 10^6/uL (3.5-6.1); RED CELL DISTRIBUTION WIDTH 14.1 % (11.5-14.5)
[2017-12-08 07:12] LABS: CALCIUM 8.3 mg/dL (8.4-10.5)
--- NOTE | 2017-12-08 08:24 | CON ---
DATE: 12/06/2017 CHIEF COMPLAINT: Gross hematuria. HISTORY OF PRESENT ILLNESS: This is a 67-year-old male who is well known to me. The patient has had multiple prior admissions to [facility] with a multitude of medical issues including recurrent hematuria, kidney stones, severe peripheral vascular disease, non-insulin dependent diabetes, colovesical fistula which was repaired, cardiac catheterization with pacemaker placement. The patient reports, for a few weeks prior to hospitalization, he has been having intermittent gross hematuria. He denies any fever or chills. Denies any colic type symptoms. consultation was requested regarding the above. PAST MEDICAL HISTORY: Significant for peripheral vascular disease, non-insulin dependent diabetes, neurogenic bladder, kidney stones, history of colovesical fistula, ventral hernia, coronary artery disease, pacemaker placement. HOME MEDICATIONS: Include amlodipine, Renagel, metoprolol, Lasix and vitamin D. ALLERGIES: ALLERGIC TO ROCEPHIN. FAMILY HISTORY: Noncontributory. SOCIAL HISTORY: Positive for smoking and EtOH in the past. REVIEW OF SYSTEMS: The patient is currently seen in his room. He is awake and alert. He is in no acute distress. He is answering questions. He reports some light hematuria. Denies any dysuria. He does have mild urinary frequency. Denies any flank pain, fever or chills. Denies nausea or vomiting. Does report some cough. Denies any headaches or dizziness. Does report some weakness and lethargy, which are chronic. Other systems are negative. PHYSICAL EXAMINATION: GENERAL: The patient is awake, alert, no acute distress. VITAL SIGNS: He is afebrile, temperature of 98.6, pulse of 72, BP 120/76, respirations are 20. NECK: Supple. There is no adenopathy. CHEST: Reveals normal inspiratory effort with some rhonchi. CARDIAC: Shows positive S1, S2. There is trace peripheral edema noted. ABDOMEN: Soft, nontender, nondistended. There is no hepatosplenomegaly. There is no costovertebral angle tenderness. The bladder is not palpably distended. GENITOURINARY: Phallus is normal. Scrotum is normal. Testes are bilaterally descended, nontender, no masses. Epididymis are normal. LABORATORY DATA: GFR currently at 11, creatinine 5.1, and BUN 64. Urinalysis; positive nitrates, too numerous to count rbc's, too numerous to count wbc's. Urine culture not available. Gram stains, no growth after 24 hours. On radiologic exam, the patient had a CT scan, which showed the previously noted large right upper pole calculi have largely resolved. There are innumerable calculi in the right renal pelvis and proximal right ureter. Right lower pole nonobstructing calculi, mild right hydronephrosis with extensive infiltration of the fat around the right renal pelvis and proximal right ureter. There is no mass. There are no left renal stones or left hydronephrosis. There is thickened bladder wall, slightly irregular. IMPRESSION AND PLAN: This is a 67-year-old male with multiple medical issues, multiple hospitalizations, severe vascular disease. The patient has been seen in my office and was recommended to have procedures done to decrease the stone burden. He was sent for medical clearance, which he could never obtain, and the procedures were not done. Acutely at this time, he appears to be responding to IV fluids and IV antibiotics. It is unclear why he has such poor renal function, as his left kidney has no stones or evidence of obstruction. At this time, I would recommend a consultation with Dr. Allen Ellington for possible nephrostomy placement. Given the large stone burden, once the patient's condition has improved, I think he would do better with a percutaneous nephrolithotomy and removing all the stones, and then simply placing a stent from below. Given the large stone burden, it would be difficult to clear it from below, and would be easier to get at the stones directly through his kidney. Plan is to continue current treatment. We will discuss with Renal. The patient is further workup for possible pneumonia seen on chest x-ray. Antibiotics as per ID databases software consultant, and consult with Dr. Allen Ellington tomorrow. Justo Sotelo MD
--- NOTE | 2017-12-08 10:06 | PN ---
DATE: 12/07/2017 SUBJECTIVE: This is a 67-year-old male who was admitted to [facility]. The patient has a history of back pain, hematuria and dysuria for several weeks. He was seen by his beamer helper as an outpatient. Lab work was performed. Cultures of urine were also done and it was reported that the patient had extremely resistant E. coli bacteria with bacteriuria, pyuria and hematuria. He was advised admission into the hospital, but because of personal reasons, did not come to the Emergency Room until yesterday. He also states that in the last week to 10 days, he has been seen by his pacemaker physician, who is originally referred his medical device engineer. Apparently, he was told that there was some variation in his heart rhythm and he was tentatively scheduled for a stress test by his medical device engineer. He also underwent an echocardiogram, the results of which he is not aware of. He also states that he recently has been started on new medication, Xarelto and he denies any fever, chills, nausea, vomiting or diarrhea. SOCIAL HISTORY: He is a nonsmoker, nondrinker, non-drug user. ALLERGIES: HE HAS AN ALLERGY TO CEFTRIAXONE. PHYSICAL EXAMINATION: VITAL SIGNS: This morning show a temp of 98.6, his pulse is 72, his blood pressure is 120/76, his respiratory rate is 20, his oxygen saturation 96% on room air. NECK: Supple. LUNGS: Show some scattered rhonchi, more in the right than left. HEART: S1, S2, grade II/ systolic murmur. ABDOMEN: Obese, soft. Positive bowel sounds. He has a ventral hernia. He has a perineal rash. EXTREMITIES: Show no evidence of edema evidence of toe amputations on the left foot and on the right. He has severe peripheral vascular disease by history, chronic kidney disease, history of neurogenic bladder and self-catheterization at home, history of renal stones with right hydronephrosis, history of gluteal colo-fistula in the past, history of urosepsis, history of pneumonia, history of coronary artery disease, pacemaker, qlo-myfyssx-sumlhzvge diabetes, arteriosclerotic heart disease, hyperlipidemia. The patient was admitted into the hospital and initiated on IV antibiotics by Infectious Disease and by medications by the covering physician. He is going to be seen by Nephrology, was initiated the patient on IV fluids. Hold his Lasix. Request a Cardiology evaluation for clarification of the findings on echocardiogram reported arrhythmia problem with this patient as per the patient and the review of his current cardiac medications, the use of anticoagulant in the setting of the hematuria and dysuria. We will also get a Urology evaluation. Patient states that he has seen urologist in the past and is due for followup appointment. LABORATORY DATA: This morning shows a sodium 141, potassium 4.3, chloride 115, CO2 of 16, BUN of 63, creatinine of 5.3, his blood sugar is 81, his phosphorus is 4.2, his magnesium is 2, calcium is 8.8. CBC shows a WBC of 4.0, RBC 3.26, hemoglobin 9.5, hematocrit 30, platelet count 146. Urinalysis was reportedly showing large amount of leukocyte esterase with too numerous to count rbc, too numerous to count wbc and large bacteria. He has been placed on meropenem by Infectious Disease. All the clinical findings at this point have been discussed with the patient. His chest x-ray was reportedly showing no evidence of an infiltrate with no evidence of active disease. His CAT scan of the abdomen and pelvis suggested a right middle lobe infiltrate with evidence of right hydronephrosis and stones. Also extensive infiltration of the fat about the right renal pelvis and proximal right ureter, of the bladder wall. We will follow the patient clinically, follow up his labs and continue as per Infectious Disease, Nephrology, Urology and Cardiology. Ana Frost MD
--- NOTE | 2017-12-08 12:32 | PN ---
DATE: SUBJECTIVE: A 67-year-old male resting comfortably this morning. Nursing staff relates that there were no particular problems during the night. The patient states that he is a feeling a bit better that he was visited by Urology and Cardiology. PHYSICAL EXAMINATION: VITAL SIGNS: Show a temperature of 98.4, his pulse is 69, his blood pressure is 103/50, his oxygen saturation is 93%, and respiratory rate is 18. NECK: Supple. LUNGS: Show some rhonchi on the right lung. HEART: S1, S2. ABDOMEN: Scaphoid, soft, positive hernia present. EXTREMITIES: Show no evidence of edema. LABORATORY DATA: Shows a WBC of 4, RBC of 3.18, hemoglobin 9.4, hematocrit 28.9, platelet count 142. Chemistry shows a sodium of 142, potassium 4.4, chloride 115, his CO2 is 17, his BUN is 62, his creatinine is 4.8, his random blood sugar is 86, and calcium is 8.3. MEDICATIONS: The patient is on meropenem and Doryx for urinary tract infection. Repeat urine culture has been requested given the findings noted in the microbiological study report. The patient has been given a dose of Aranesp and placed on Ferrex 150 daily. He continues on his Lopressor, his Norvasc. He is receiving nystatin for topical skin infection and he is on IV fluids with sodium bicarbonate and Tylenol p.r.n. The consultation notes of Infectious Disease, Urology, and Renal have been noted. Cardiology is reviewing the patient's clinical studies recently done by outside physician, who monitors his pacemaker. We will continue current level of care. The patient awaits recommendations by the individual consultants, Urology's note has been discussed with the patient. He has remote history of urosepsis. He has renal stones with right hydronephrosis, chronic kidney disease, pneumonia, and a gluteal-colo fistula at one time. He has had peripheral vascular disease with several toe amputations. Continue current level of care. Follow up the patient's lab work. Ana Frost MD
[2017-12-08] MEDS: Iron Complex Polysacch 150mg Cap PO SCH (12:34)
--- NOTE | 2017-12-08 12:35 | PN ---
DATE: SUBJECTIVE: The patient is currently seen on 5R sitting in a chair. He is receiving IV fluid hydration. He is on IV antibiotic therapy. The patient has been doing relatively well since admission to the hospital. He is not complaining of any urinary tract symptoms. He is being treated for a highly-resistant E-coli urinary tract infection and a right middle lobe pneumonia. MEDICATIONS: Medication list reviewed. The patient is currently on doxycycline, Lopressor, meropenem, Norvasc, nystatin, Renagel, IV fluid with sodium bicarbonate, Tylenol p.r.n. OBJECTIVE INTAKE/OUTPUT: Intake 4490, output 2089. VITAL SIGNS: Blood pressure 103/50, temperature 98.4, respiratory rate 20 with a pulse of 69. HEENT: Exam shows him to be normocephalic, atraumatic. Conjunctiva are pale. Sclerae are nonicteric. NECK: Supple. No neck vein distention. CHEST: Clear to auscultation and percussion. No rales, rhonchi or wheezing. CARDIOVASCULAR: Shows a regular rate and rhythm with a soft systolic murmur, left lower sternal border. No S3, no S4. No rub. Positive permanent pacemaker. ABDOMEN: Soft. Bowel sounds normal. No rebound, no guarding. No masses. Large left lower quadrant nonreducible abdominal wall hernia. EXTREMITIES: Show no cyanosis, clubbing or edema. He has diminished lower extremity pulses bilaterally. LABORATORY DATA AND IMAGING: CBC: White blood cell count today 4.0, hemoglobin 9.4 with a platelet count of 142,000. Chemistries today show sodium 142, potassium 4.4, chloride 115 with a CO2 of 17. BUN is 62, stable since admission. Creatinine is down from 5.1 to 4.8, his baseline had been in the low to mid 4 range. Glucose is 97. Calcium is 8.3. Phosphorus level from yesterday was 4.2. Magnesium level was 2.0. Urine were positive for nitrites, positive for blood, positive for white blood cells, positive for red blood cells. Microbiology, urine culture is greater than 100,000. Multiple species, repeat is pending. Blood cultures are negative at 24 hours. ASSESSMENT 1. Acute renal failure superimposed on chronic kidney disease stage IV. The patient's baseline creatinine is in the low to mid 4 range. The patient is mildly acidotic. We will continue IV fluid hydration with sodium bicarbonate therapy. He has no uremic symptoms. The patient has no interest in considering any plans for dialysis at this point in time. 2. History of urinary tract infection, resistant to oral antibiotic therapy. 3. History of right middle lobe pneumonia. The patient will complete a course of antibiotic therapy under the guidance of Infectious Disease. 4. History of a large right kidney staghorn calculus with right hydronephrosis. The patient has recurrent urinary tract infections in the setting of a neurogenic bladder. The patient has been seen by Urology. There has been some thought as to whether or not the patient should have a nephrostomy with breakup of the staghorn calculus. In all likelihood, the patient will refuse this. 5. History of secondary hyperparathyroidism, vitamin D deficiency. The patient will continue to have his phosphorus level monitored. We will continue on a renal diet. We can check vitamin D level. 6. History of anemia. The patient can receive Aranesp therapy. Hemoglobin is below 10. This is all likely secondary to chronic kidney disease and bone marrow suppression from his UTI and possible pneumonia. 7. History of non-insulin dependent diabetes mellitus. Sugar control has been acceptable. 8. History of peripheral vascular disease of his lower extremity, currently stable. The patient has had multiple surgeries. 9. History of hypertension. Blood pressure is currently well controlled on present medical therapy. 10. History of paraspinal abscess. 11. History of diverticulosis, colectomy, colostomy with reversal of colostomy, all appeared to be stable. The patient does have a large left lower quadrant abdominal wall hernia. 12. History of coronary artery disease with mild valvular heart disease, status post permanent pacemaker placement for life-threatening bradycardia. The patient is followed by Cardiology. PLAN 1. Complete course of antibiotic therapy. 2. Perhaps evaluation by Interventional Radiology for nephrostomy tube and the patient will likely refuse this. 3. Continue genitourinary followup for his large right staghorn calculus with hydronephrosis. 4. Continue intravenous fluid hydration with sodium bicarbonate for his metabolic acidosis. The patient's CO2 level was 15 on admission, it is currently 17 today. 5. Adequate inputs and outputs. 6. Repeat urine cultures. Bryan Sipzner, MD
[2017-12-08] MEDS: Nystatin 100,000 Units/gm Topical Pow(15 gm) TOP SCH (13:12)
[2017-12-08 14:41] LABS: URINE BILIRUBIN NEGATIVE (NEGATIVE); URINE BLOOD LARGE (NEGATIVE); URINE GLUCOSE (UA) NEGATIVE (NEGATIVE); URINE LEUKOCYTE ESTERASE MODERATE Leu/uL (NEGATIVE); URINE NITRATE NEGATIVE (NEGATIVE); URINE PROTEIN 100 mg/dL (<30 mg/dL); URINE UROBILINOGEN 0.2 E.U./dL (<1 E.U./dL)
[2017-12-08 14:53] LABS: URINE APPEARANCE CLOUDY (CLEAR); URINE COLOR YELLOW (YELLOW)
[2017-12-08 14:56] LABS: URINE BACTERIA MANY (NEG); URINE WBC TNTC /hpf (0-6)
[2017-12-08 14:57] LABS: URINE RBC TNTC /hpf (0-2)
[2017-12-08 14:58] LABS: URINE EPITHELIAL CELLS 0 - 2 /hpf (0-5)
--- NOTE | 2017-12-08 15:40 | CP.PCM.PN ---
Subjective - Date & Time of Evaluation Date of Evaluation: 12/08/17 Time of Evaluation: 12:00 - Subjective Subjective: Comfortable, resting well, no fevers. Objective - Vital Signs/Intake and Output Vital Signs (last 24 hours): Temp Pulse Resp BP Pulse Ox 98.4 F 69 20 103/50 L 93 L 12/08/17 07:30 12/08/17 07:30 12/08/17 07:30 12/08/17 07:30 12/08/17 07:30 Intake and Output: 12/08/17 12/08/17 06:59 18:59 Intake Total 2610 Output Total 1450 Balance 1160 - Medications Medications: Current Medications Acetaminophen (Tylenol 325mg Tab) 650 mg PO Q6H PRN PRN Reason: Fever >100.4 F Amlodipine Besylate (Norvasc) 5 mg PO DAILY [facility] Last Admin: 12/08/17 09:00 Dose: 5 mg Darbepoetin Javi (Aranesp) 60 mcg SC ONCE ONE Stop: 12/09/17 10:01 Doxycycline Hyclate (Doryx) 100 mg PO Q12 NESHA PRN Reason: Protocol Stop: 12/16/17 10:01 Last Admin: 12/08/17 08:59 Dose: 100 mg Meropenem 250 mg/ Sodium (Chloride) 100 mls @ 100 mls/hr IVPB Q12H NESHA PRN Reason: Protocol Stop: 12/15/17 13:01 Last Admin: 12/08/17 00:57 Dose: 100 mls/hr Sodium Bicarbonate 50 meq/ (Sodium Chloride) 1,050 mls @ 80 mls/hr IV .Q13H8M [facility] Last Admin: 12/08/17 08:45 Dose: 80 mls/hr Metoprolol Tartrate (Lopressor) 75 mg PO BID [facility] Last Admin: 12/08/17 08:59 Dose: 75 mg Nystatin (Nystop Topical Powder) 0 gm TOP BID [facility] Stop: 12/12/17 23:59 Last Admin: 12/07/17 18:12 Dose: 1 applic Polysaccharide Iron Complex (Ferrex-150) 150 mg PO DAILY [facility] Sevelamer HCl (Renagel) 800 mg PO ACTID [facility] Last Admin: 12/08/17 08:59 Dose: 800 mg - Labs Labs: 12/08/17 06:30 12/08/17 06:30 PT 18.2 SECONDS (9.4-12.5) H 12/06/17 11:40 INR 1.57 (0.93-1.08) H 12/06/17 11:40 APTT 35.0 Seconds (25.1-36.5) 12/06/17 11:40 - Constitutional Appears: Chronically Ill - Head Exam Head Exam: NORMAL INSPECTION - Respiratory Exam Respiratory Exam: Decreased Breath Sounds - Cardiovascular Exam Cardiovascular Exam: +S1, +S2 - GI/Abdominal Exam GI & Abdominal Exam: Soft. absent: Tenderness Assessment and Plan - Assessment and Plan (Free Text) Plan: Assessment right middle lobe pneumonia cystitis with right sided hydronephrosis Enterococcus urinary tract infection Diarrhea R/O pseudomembranous colitis severe sepsis secondary to Morganella urinary tract infection, clinically improved history of Clostridium difficile diarrhea DM HTN CAD Atrial fibrillation History of vertebral osteomyelitis Plan continue Meropenem and Doxycycline day 2 pending final cultures follow up further plans of Urology
--- NOTE | 2017-12-08 17:27 | CON ---
DATE: 12/08/2017 REASON FOR CONSULTATION: Hematuria, urosepsis, permanent pacemaker, and coronary artery disease. HISTORY OF PRESENT ILLNESS: This is a 67-year-old man admitted on the with hematuria, which has been present for several weeks. He also had some flank pain and dysuria. He has known renal stones and workup suggests the possibility of pyelonephritis and hydronephrosis of the right kidney. There is also a right middle lobe infiltrate on his CT scan of the chest. He is being treated with antibiotics. There is no chest pain, shortness of breath, orthopnea, PND, syncope, presyncope, lightheadedness, dizziness, vertigo, palpitation, edema, fever, chills, rigor, sweats, hemoptysis, nausea, vomiting, diarrhea, constipation, melena. PAST MEDICAL HISTORY: His past medical history is complex. He has known coronary artery disease with remote coronary stent. He has paroxysmal atrial fibrillation, has had episodes of severe bradycardia and has a VVI pacemaker implanted. He has mitral regurgitation, diabetes, hypertension, renal stones, history of DVT and osteomyelitis. He has PAD with amputation of toes. He has chronic anemia. He has had a colovesicular fistula with perineal and paraspinal abscesses in the past. He has had diverticulosis with colon resection, colostomy and reversal of colostomy. There is no history of myocardial infarction, congestive heart failure, angina, stroke, TIA, or gout. MEDICATIONS AT THE TIME OF ADMISSION: Included metoprolol, Lasix, Drisdol, Renagel, and Norvasc and recently Xarelto for PAF. ALLERGIES: HE NOTES AN ALLERGY TO CEFTRIAXONE. SOCIAL HISTORY: He does not smoke. He does not drink alcohol. He lives at home. He is ambulatory. He is a remote smoker. FAMILY HISTORY: Noncontributory. REVIEW OF SYSTEMS: A 10-point review of systems is otherwise unremarkable except as noted above. PHYSICAL EXAMINATION: GENERAL: He is a well developed male, lying in bed on 5R in no acute distress. VITAL SIGNS: Notable for heart rate of 70, afebrile, blood pressure 105/60, respirations 18, and O2 sat 94% on room air. HEENT: Reveals no neck vein distention, thyromegaly, or carotid bruits. Mucous membranes are moist. Conjunctivae are pink. NECK: Supple. LUNGS: Lung stanley are clear. HEART: Reveals normal first and second heart sounds. There is a soft systolic murmur along the left sternal border. ABDOMEN: Soft. Bowel sounds are present. No mass, organomegaly, tenderness, rebound, guarding. No CVA tenderness. No palpable abdominal aortic aneurysm. EXTREMITIES: Revealed mild edema. NEUROLOGICAL: Awake, alert, and oriented. PSYCHIATRIC: Normal as to mood and affect. SKIN: Warm and dry. No rash or cellulitis. LABORATORY DATA AND IMAGING: A chest x-ray was a portable study reveals no active disease. CT of the abdomen and pelvis is noted. There is a new right middle lobe pulmonary infiltrate rule out pneumonia, etc. EKG demonstrates regular sinus rhythm. No change from prior EKG except for shift in axis. White count 4000, hemoglobin 9.4, hematocrit 28.9 and platelet count normal. PT 18.2, INR 1.57, and PTT 35. Blood gas noted. Chemistry is noted. Creatinine 5.1, repeat 4.8. Sodium 142, potassium 4.4, blood sugar is noted. LFT is noted, unremarkable. Lipase 236. Procalcitonin low at 0.16. Urinalysis noted, abnormal. IMPRESSION: Titus Sunshine is a 67-year-old man with coronary artery disease, remote coronary stent, permanent pacemaker for episodic severe bradyarrhythmia, PAF recently started on Xarelto, admitted with hematuria, flank and suprapubic discomfort rule out pyelonephritis, known renal stones, [id number] renal failure with multiple medical problems. At this time, he has been cultured. He is getting antibiotics, IV fluids. We will continue metoprolol, amlodipine. He had a recent echocardiogram in our office, which I will review. He was scheduled for a nuclear stress test in our office, which will have to be postponed at this point. He is being followed by Dr. Ochoa in [place]. We will monitor Is and Os. Check stool for occult blood. Monitoring his renal function. He will have a urologic evaluation. I will follow along with you. I will make additional recommendations based on his clinical course. If surgery is contemplated and timing allows, a nuclear stress test for screening purposes would be advisable. I would hold Xarelto at this time. Marcin Anderson MD [facility] # [id number] [facility]LL[facility]
[2017-12-09 07:16] LABS: HEMOGLOBIN 9.5 g/dL (14.0-18.0); MEAN CELL VOLUME 91.6 fl (80.0-105.0); MEAN CORPUSCULAR HEMOGLOBIN 29.4 pg (25.0-35.0); MEAN CORPUSCULAR HGB CONC 32.1 g/dl (31.0-37.0); MEAN PLATELET VOLUME 9.4 fl (7.0-11.0); RBC 3.23 10^6/uL (3.5-6.1); WHITE BLOOD COUNT 4.6 10^3/ul (4.5-11.0)
[2017-12-09 07:51] LABS: IRON 26 ug/dL (45-180)
[2017-12-09 08:01] LABS: % IRON SATURATION 12 % (20-55); TOTAL IRON BINDING CAPACITY 220 ug/dL (261-462)
[2017-12-09 08:05] LABS: ALB/GLOB RATIO 0.7 (1.1-1.8); ALBUMIN 2.9 g/dL (3.0-4.8); CALCIUM 8.1 mg/dL (8.4-10.5); MAGNESIUM 1.7 mg/dL (1.7-2.2)
--- NOTE | 2017-12-09 08:20 | CP.PCM.PN ---
Subjective - Date & Time of Evaluation Date of Evaluation: 12/09/17 Time of Evaluation: 07:00 - Subjective Subjective: Stable on 5R. No CP or SOB. No abd. or flank pain today. V/S noted. PE: Lungs: clear Cor.: S1S2 Abd.: soft Ext.: no edema Neuro.: alert I/O = 720/1100 Labs noted BC X2 NG at 48 hrs. Objective - Vital Signs/Intake and Output Vital Signs (last 24 hours): Temp Pulse Resp BP Pulse Ox 97.8 F 66 20 135/69 94 L 12/09/17 07:30 12/09/17 07:30 12/09/17 07:30 12/09/17 07:30 12/09/17 07:30 Intake and Output: 12/09/17 12/09/17 06:59 18:59 Intake Total 360 Output Total 500 Balance -140 - Medications Medications: Current Medications Acetaminophen (Tylenol 325mg Tab) 650 mg PO Q6H PRN PRN Reason: Fever >100.4 F Amlodipine Besylate (Norvasc) 5 mg PO DAILY [facility] Last Admin: 12/08/17 09:00 Dose: 5 mg Darbepoetin Javi (Aranesp) 60 mcg SC ONCE ONE Stop: 12/09/17 10:01 Doxycycline Hyclate (Doryx) 100 mg PO Q12 [facility] PRN Reason: Protocol Stop: 12/16/17 10:01 Last Admin: 12/08/17 22:26 Dose: 100 mg Meropenem 250 mg/ Sodium (Chloride) 100 mls @ 100 mls/hr IVPB Q12H [facility] PRN Reason: Protocol Stop: 12/15/17 13:01 Last Admin: 12/09/17 01:20 Dose: 100 mls/hr Sodium Bicarbonate 50 meq/ (Sodium Chloride) 1,050 mls @ 80 mls/hr IV .Q13H8M [facility] Last Admin: 12/08/17 08:45 Dose: 80 mls/hr Metoprolol Tartrate (Lopressor) 75 mg PO BID [facility] Last Admin: 12/08/17 16:30 Dose: 75 mg Nystatin (Nystop Topical Powder) 0 gm TOP BID [facility] Stop: 12/12/17 23:59 Last Admin: 12/08/17 13:12 Dose: 1 applic Polysaccharide Iron Complex (Ferrex-150) 150 mg PO DAILY [facility] Last Admin: 12/08/17 12:34 Dose: 150 mg Sevelamer HCl (Renagel) 800 mg PO ACTID [facility] Last Admin: 12/08/17 16:30 Dose: 800 mg - Labs Labs: 12/09/17 06:45 12/08/17 06:30 PT 18.2 SECONDS (9.4-12.5) H 12/06/17 11:40 INR 1.57 (0.93-1.08) H 12/06/17 11:40 APTT 35.0 Seconds (25.1-36.5) 12/06/17 11:40 Assessment and Plan - Assessment and Plan (Free Text) Assessment: Hematuria Acute on chronic kidney disease with right hydronephrosis, renal stones H/O UTIs RML pneumonia on CT CAD/Remote PCI PAF PPM MR Diabetes HBP Diverticulosis with colon resection H/O colo-vesicular fistula, peroneal abscess, paraspinal abscess Neurogenic bladder DVT Osteomyelitis Toe amputations Anemia Plan: As per Renal, Uro., ID and Dr. Frost Hold Xarelto for now Check cultures OOB as dilia.
[2017-12-09] MEDS ORDERED: Darbepoetin Alfa 60 mcg/ml Inj SC ONE (10:00)
[2017-12-09] MEDS: Iron Complex Polysacch 150mg Cap PO SCH (11:02)
[2017-12-09] MEDS: Nystatin 100,000 Units/gm Topical Pow(15 gm) TOP SCH ×2 (11:03→18:06)
[2017-12-09] MEDS ORDERED: Ergocalciferol 50,000 Intl Units Cap PO SCH (15:15)
--- NOTE | 2017-12-09 17:21 | PN ---
DATE: SUBJECTIVE: A 67-year-old male with history of pyuria, bacteriuria, hematuria, right hydronephrosis, and renal stones, on IV antibiotics by Infectious Disease for urinary tract infection. PHYSICAL EXAMINATION: VITAL SIGNS: Show a temperature of 97.8, pulse is 66, blood pressure is 135/69, respiratory rate is 20, and oxygen saturation is 94% on room air. LUNGS: Clear. HEART: S1 and S2 rhythm. ABDOMEN: Soft and scaphoid. Positive bowel sounds. EXTREMITIES: Show no evidence of edema. LABORATORY DATA: Shows a WBC 4.6, RBC 3.23, hemoglobin 9.5, hematocrit 29.6, and platelet count 145. Chemistry shows sodium 144, potassium 4.3, chloride 115, the CO2 is 18, the BUN is 55, and the creatinine is 4.3. Random blood sugar was 94. The patient's magnesium is 1.7. His iron is 26, his TIBC is 320, and his present saturation is 12. The patient is currently receiving antibiotics for the above-mentioned infection. He is being followed by Nephrology for his chronic renal disease and chronic anemia and a urological consult has been done. Recommendations are to be discussed with Dr. Allen Ellington for possible interventional procedure for his renal stones. These findings have all been discussed with the patient at this time and we will continue to monitor the patient closely. The patient has been seen by Cardiology and at this time, his anticoagulation therapy is on hold. The patient has a past medical history of acute on chronic kidney disease with right hydronephrosis and renal stones, urinary tract infections, right middle lobe pneumonia on CT, coronary artery disease with remote PCI, paroxysmal AFib, permanent pacemaker, mitral regurgitation, diabetes, high blood pressure, diverticulosis with history of colovesical fistula, perineal abscess, neurogenic bladder, DVT, osteomyelitis, toe amputations, and anemia. Continue to monitor the patient closely as per the individual consultants. Ana Frost MD
--- NOTE | 2017-12-09 17:58 | PN ---
DATE: SUBJECTIVE: Patient is currently seen lying supine, comfortable in bed on 5R. He remains on IV fluid hydration with sodium bicarbonate. He remains on IV antibiotic therapy for his community-acquired pneumonia and for his resistance to E coli urinary tract infection. Patient states that he is awaiting a visit by Dr. Allen Ellington for the possibility of placing a right percutaneous nephrostomy tube with the hope of breaking up the staghorn calculus. MEDICATIONS: Medication list reviewed. Patient is currently on Doryx, iron, Lopressor, meropenem, Norvasc, nystatin, Renagel, sodium bicarbonate, IV fluids, and Tylenol p.r.n. PHYSICAL EXAMINATION: INTAKE/OUTPUT: Intake 720+, output 1100. VITAL SIGNS: Blood pressure 135/69, temperature 97.8, respiratory rate is 20 with a pulse of 66, oxygen saturation is 94%. HEENT: Shows him to be normocephalic, atraumatic. Conjunctivae are pale. Sclerae nonicteric. NECK: Supple. No neck vein distention. CHEST: Clear to auscultation and percussion. No rales, rhonchi or wheezing. CARDIOVASCULAR: Shows a regular rate and rhythm with a soft murmur in left lower sternal border. No S3. No S4. No rub. Positive permanent pacemaker. ABDOMEN: Soft. Bowel sounds normal. No rebound. No guarding. No masses. Large left lower quadrant nonreducible abdominal wall hernia in areas of previous surgical scars. EXTREMITIES: Show no cyanosis, clubbing or edema. He has diminished lower extremity pulses. LABORATORY DATA AND IMAGING: CBC: White blood cell count today is 4.6, hemoglobin 9.5 with a platelet count of 145,000. Chemistries today show sodium 144, potassium 4.3, chloride 115 with a CO2 at 18, this is improved from a CO2 of 15 on admission. BUN is 55 with a creatinine of 4.3; BUN has dropped from 64 to 55, his creatinine has dropped from 5.3 to 4.3. He is now at his baseline levels. Glucose is 94, calcium is 8.1 with an albumin of 2.9, it corrects to normal. Phosphorus 3.4, magnesium 1.7. His iron saturations are 12%. His vitamin D level is low at 17.1. His PTH is elevated at 147. Microbiology: Blood cultures are negative at 3 days. Sputum culture is negative. Repeat urine is pending. Initial urine showed multiple species. The outpatient urine culture was positive for E-coli resistant to all oral antibiotics. ASSESSMENT: 1. Acute renal failure superimposed on chronic kidney disease, stage IV. Patient is approaching his baseline creatinine in the low to mid 4 range. He does continue to have a mild metabolic acidosis. There is consideration that the patient maybe transferred to the TCU. I will discontinue IV fluid hydration and start the patient on oral bicarbonate therapy. 2. History of urinary tract infection. Positive Escherichia coli resistant to oral antibiotic therapy. Patient will continue present IV antibiotic therapy under the guidance of Infectious Disease. 3. Right middle lobe pneumonia. Patient will once again complete the course of antibiotic therapy. 4. History of a large right kidney staghorn calculus with a right-sided hydronephrosis. Patient has recurrent urinary tract infections with a neurogenic bladder. Patient is strongly considering the possibility of having a right percutaneous nephrostomy tube placed with pulverizing and breaking up of the kidney stone. The hope is that this will improve his chances of having fever urinary tract infections. It likely will not improve his kidney function as he has chronic longstanding right-sided hydronephrosis. 5. History of secondary hyperparathyroidism and vitamin D deficiency. Patient's phosphorus level is normal. He will continue on a renal diet. We will start the patient on ergocalciferol for his vitamin D deficiency. Phosphorus level is acceptable at 3.4. Patient had been on Renagel and may continue this. 6. History of anemia. Patient's hemoglobin is low. Patient can receive Aranesp therapy. Of note, his iron saturations are also low at 12%. In light of the fact that the patient has negative blood cultures, I will start the patient on IV Venofer. During the time that he receives IV Venofer, oral iron supplements can be withheld. 7. History of noninsulin-dependent diabetes mellitus. Sugar control has been acceptable. 8. History of peripheral vascular disease status post multiple lower extremity foot surgeries. 9. History of hypertension. Blood pressure is currently well controlled on present medical therapy. 10. History of paraspinal abscess with history of diverticulosis, colectomy, colostomy and reversal of colostomy; all appear to be stable. Patient does have a large left lower quadrant abdominal wall hernia. 11. History of coronary artery disease and mild valvular heart disease, status post permanent pacemaker placement for life-threatening bradycardia. 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 Anderson. PLAN: 1. Patient will discuss the pros and cons of placing a right percutaneous nephrostomy tube with Dr. Allen Ellington who will likely do the procedure and Dr. Sotelo, his present urologist. 2. Complete course of IV antibiotic therapy for his pneumonia and urinary tract infection. 3. From my standpoint, the patient may stop IV fluid hydration as his creatinine is back to baseline. I will start the patient on oral bicarbonate therapy. 4. Continue to monitor accurate Is and Os. 5. Still awaiting repeat urine cultures. Bryan Vail MD
--- NOTE | 2017-12-09 18:39 | CP.PCM.PN ---
Subjective - Date & Time of Evaluation Date of Evaluation: 12/09/17 Time of Evaluation: 12:00 - Subjective Subjective: Comfortable, no fevers. Objective - Vital Signs/Intake and Output Vital Signs (last 24 hours): Temp Pulse Resp BP Pulse Ox 97.8 F 66 20 135/69 94 L 12/09/17 07:30 12/09/17 07:30 12/09/17 07:30 12/09/17 07:30 12/09/17 07:30 Intake and Output: 12/09/17 12/09/17 06:59 18:59 Intake Total 360 Output Total 500 Balance -140 - Medications Medications: Current Medications Acetaminophen (Tylenol 325mg Tab) 650 mg PO Q6H PRN PRN Reason: Fever >100.4 F Amlodipine Besylate (Norvasc) 5 mg PO DAILY [facility] Last Admin: 12/08/17 09:00 Dose: 5 mg Doxycycline Hyclate (Doryx) 100 mg PO Q12 [facility] PRN Reason: Protocol Stop: 12/16/17 10:01 Last Admin: 12/08/17 22:26 Dose: 100 mg Meropenem 250 mg/ Sodium (Chloride) 100 mls @ 100 mls/hr IVPB Q12H [facility] PRN Reason: Protocol Stop: 12/15/17 13:01 Last Admin: 12/09/17 01:20 Dose: 100 mls/hr Sodium Bicarbonate 50 meq/ (Sodium Chloride) 1,050 mls @ 80 mls/hr IV .Q13H8M [facility] Last Admin: 12/08/17 08:45 Dose: 80 mls/hr Metoprolol Tartrate (Lopressor) 75 mg PO BID [facility] Last Admin: 12/08/17 16:30 Dose: 75 mg Nystatin (Nystop Topical Powder) 0 gm TOP BID [facility] Stop: 12/12/17 23:59 Last Admin: 12/08/17 13:12 Dose: 1 applic Polysaccharide Iron Complex (Ferrex-150) 150 mg PO DAILY [facility] Last Admin: 12/08/17 12:34 Dose: 150 mg Sevelamer HCl (Renagel) 800 mg PO ACTID [facility] Last Admin: 12/09/17 08:16 Dose: 800 mg - Labs Labs: 12/09/17 06:45 12/09/17 06:45 PT 18.2 SECONDS (9.4-12.5) H 12/06/17 11:40 INR 1.57 (0.93-1.08) H 12/06/17 11:40 APTT 35.0 Seconds (25.1-36.5) 12/06/17 11:40 - Constitutional Appears: Chronically Ill - Head Exam Head Exam: NORMAL INSPECTION - Neck Exam Neck Exam: absent: Meningismus - Respiratory Exam Respiratory Exam: Decreased Breath Sounds - Cardiovascular Exam Cardiovascular Exam: +S1, +S2 - GI/Abdominal Exam GI & Abdominal Exam: Soft. absent: Tenderness Assessment and Plan - Assessment and Plan (Free Text) Plan: Assessment right middle lobe pneumonia cystitis with right sided hydronephrosis Enterococcus urinary tract infection Diarrhea R/O pseudomembranous colitis severe sepsis secondary to Morganella urinary tract infection, clinically improved history of Clostridium difficile diarrhea DM HTN CAD Atrial fibrillation History of vertebral osteomyelitis Plan continue Meropenem and Doxycycline day 3 to complete 4-7 days of therapy follow up further plans of Urology
[2017-12-09 22:10] VITALS: RESP 18
[2017-12-10 06:56] LABS: HEMOGLOBIN 9.6 g/dL (14.0-18.0); MEAN CELL VOLUME 91.7 fl (80.0-105.0); MEAN CORPUSCULAR HEMOGLOBIN 29.4 pg (25.0-35.0); MEAN CORPUSCULAR HGB CONC 32.1 g/dl (31.0-37.0); MEAN PLATELET VOLUME 9.2 fl (7.0-11.0); RBC 3.26 10^6/uL (3.5-6.1); RED CELL DISTRIBUTION WIDTH 14.3 % (11.5-14.5); WHITE BLOOD COUNT 4.8 10^3/ul (4.5-11.0)
[2017-12-10 07:10] LABS: ALB/GLOB RATIO 0.8 (1.1-1.8); CALCIUM 8.4 mg/dL (8.4-10.5)
[2017-12-10 07:58] VITALS: BP 136/85; PULSE 64; TEMP 97.3; O2SAT 95
--- NOTE | 2017-12-10 08:05 | PN ---
DATE: 12/09/2017 SUBJECTIVE: Patient is seen in his room. He is sitting in a chair. PHYSICAL EXAMINATION: GENERAL: He is in no acute distress. VITAL SIGNS: He is afebrile. Temperature of 97.8, pulse of 66, blood pressure 135/69, respirations 20. ABDOMEN: Benign, nontender. No CVA tenderness. LABORATORY DATA: Patient's urine appears to have improved. Nitrites are now negative. His creatinine has come down to 4.3 from 4.8 yesterday. IMPRESSION AND PLAN: Reviewed other peoples[employer] consultant's notes. Urologically, the patient has acute renal failure on top of chronic kidney disease. This appears to be improving with IV fluids and IV antibiotics. Patient has a very large stone burden with a staghorn calculus, which has been present for many years in his right kidney. Patient does not have any evidence of sepsis at this time. I have discussed further treatment of the stone with the patient. The preferred method to remove the stone would be a percutaneous nephrolithotomy and I have advised the patient that he should have a nephrostomy tube placed at this time to relieve any obstruction. He does not want to pursue that at this time. Alternatively, we can consider stent placement and possible shockwave lithotripsy, but this will likely take multiple settings and he would likely need a ureteroscopy to remove multiple large fragments. It is unclear, if the patient is able to tolerate this medically given his severe vascular disease, hypertension and cardiac issues. For now, the patient appears to be improving and stable on antibiotics and fluids and we will continue to follow him. Justo Sotelo MD
[2017-12-10] MEDS: Nystatin 100,000 Units/gm Topical Pow(15 gm) TOP SCH (11:06)
--- NOTE | 2017-12-10 12:15 | CP.PCM.PN ---
Subjective - Date & Time of Evaluation Date of Evaluation: 12/10/17 Time of Evaluation: 11:25 - Subjective Subjective: Comfortable in bed, breathing better, no fevers. Objective - Vital Signs/Intake and Output Vital Signs (last 24 hours): Temp Pulse Resp BP Pulse Ox 97.3 F L 64 18 136/85 95 12/10/17 07:57 12/10/17 07:57 12/10/17 07:57 12/10/17 07:57 12/10/17 07:57 Intake and Output: 12/10/17 12/10/17 06:59 18:59 Intake Total 980 Output Total 1200 Balance -220 - Medications Medications: Current Medications Acetaminophen (Tylenol 325mg Tab) 650 mg PO Q6H PRN PRN Reason: Fever >100.4 F Amlodipine Besylate (Norvasc) 5 mg PO DAILY [facility] Last Admin: 12/09/17 11:02 Dose: 5 mg Doxycycline Hyclate (Doryx) 100 mg PO Q12 [facility] PRN Reason: Protocol Stop: 12/16/17 10:01 Last Admin: 12/09/17 21:45 Dose: 100 mg Ergocalciferol (Drisdol 50,000 Intl Units Cap) 1 cap PO Q7D [facility] Last Admin: 12/09/17 16:26 Dose: 1 cap Meropenem 250 mg/ Sodium (Chloride) 100 mls @ 100 mls/hr IVPB Q12H [facility] PRN Reason: Protocol Stop: 12/15/17 13:01 Last Admin: 12/09/17 23:59 Dose: 100 mls/hr Metoprolol Tartrate (Lopressor) 75 mg PO BID [facility] Last Admin: 12/09/17 18:09 Dose: 75 mg Nystatin (Nystop Topical Powder) 0 gm TOP BID [facility] Stop: 12/12/17 23:59 Last Admin: 12/09/17 18:06 Dose: Not Given Sevelamer HCl (Renagel) 800 mg PO ACTID [facility] Last Admin: 12/10/17 07:52 Dose: 800 mg Sodium Bicarbonate (Sodium Bicarbonate Tab) 650 mg PO TID [facility] Last Admin: 12/09/17 18:09 Dose: 650 mg - Labs Labs: 12/10/17 06:20 12/10/17 06:20 PT 18.2 SECONDS (9.4-12.5) H 12/06/17 11:40 INR 1.57 (0.93-1.08) H 12/06/17 11:40 APTT 35.0 Seconds (25.1-36.5) 12/06/17 11:40 - Constitutional Appears: Non-toxic, Chronically Ill - Head Exam Head Exam: NORMAL INSPECTION - ENT Exam ENT Exam: Mucous Membranes Moist - Neck Exam Neck Exam: absent: Meningismus - Respiratory Exam Respiratory Exam: Decreased Breath Sounds - Cardiovascular Exam Cardiovascular Exam: +S1, +S2 - GI/Abdominal Exam GI & Abdominal Exam: Soft. absent: Tenderness Assessment and Plan - Assessment and Plan (Free Text) Plan: Assessment right middle lobe pneumonia, slowly improving cystitis with right sided hydronephrosis Enterococcus urinary tract infection Diarrhea R/O pseudomembranous colitis severe sepsis secondary to Morganella urinary tract infection, clinically improved history of Clostridium difficile diarrhea DM HTN CAD Atrial fibrillation History of vertebral osteomyelitis Plan continue Meropenem and Doxycycline day 4 to complete 4-7 days of therapy follow up further plans of Urology
--- NOTE | 2017-12-10 15:03 | PN ---
DATE: 12/10/2017 SUBJECTIVE: The patient is seen sitting in a chair on 5R. He is currently comfortable. His hematuria appears to be improving. He denies any chest pain or dyspnea. He is unaware of any palpitations at present. MEDICATIONS: His current medications remain doxycycline, metoprolol 75 mg b.i.d., meropenem, Norvasc 5 mg daily, Renagel, sodium bicarbonate tablets. PHYSICAL EXAMINATION GENERAL: He is a middle-aged man who appears comfortable at the present time. VITAL SIGNS: His blood pressure is 136/86 with a pulse of 64, respirations are 14. He is afebrile. HEENT: No JVD. CHEST: Few scattered rhonchi heard. HEART: PMI displaced laterally with systolic murmur in the left sternal border. ABDOMEN: Soft, nontender with normoactive bowel sounds. EXTREMITIES: Trace ankle edema. DIAGNOSTIC DATA: Potassium 4.4, sodium is 147, BUN and creatinine 51 and 3.9. White count is 4.8, hemoglobin and hematocrit 9.6 and 29.9 with a platelet count of 152,000. IMPRESSION: 1. Recent gross hematuria with nephrolithiasis, workup in progress. Anticoagulant therapy remains on hold. 2. Acute on chronic renal insufficiency with hydronephrosis. 3. Right middle lobe pneumonia. 4. Coronary artery disease status post remote percutaneous coronary intervention, stable at present. 5. Paroxysmal atrial fibrillation. 6. Rest of problems as noted. RECOMMENDATIONS: Anticoagulant therapy will remain on hold at this time. From a cardiac standpoint, he appears stable to proceed with any urologic intervention necessary. Rest of his cardiac medications will remain unchanged. We will continue to follow and make further recommendations as appropriate. Jose Willams MD
--- NOTE | 2017-12-10 21:56 | PN ---
DATE: 12/10/2017 SUBJECTIVE: Patient is seen lying in bed. He is awake, he is alert, he is comfortable. He denies any pain. He denies any shortness of breath. PHYSICAL EXAMINATION: GENERAL: Elderly male, lying in bed. VITAL SIGNS: Blood pressure 136/85, heart rate 64, respiratory rate 18, temperature 97.3. HEENT: Normocephalic, atraumatic. NECK: Supple, no JVD. LUNGS: Bilateral equal air entry, no rales. CARDIAC: S1, S2, regular rate and rhythm. No murmur, no rub. ABDOMEN: Obese, distended, soft, nontender, bowel sounds present. EXTREMITIES: No lower extremity edema. INTAKE AND OUTPUT: 1460/1900. LABORATORY DATA: WBC 4.8, hemoglobin 9.6, hematocrit 29.9, platelets 152. Sodium 147, potassium 4.4, chloride 117, CO2 20, BUN 51, creatinine 3.9, glucose 101, calcium 8.4, albumin 3.0. Urine culture, gram-positive cocci. Blood culture, no growth. CURRENT MEDICATIONS: Doxycycline 100 q. 12, Lopressor 75 b.i.d., meropenem 250 q. 12, amlodipine 5, nystatin, sevelamer 800 t.i.d., sodium bicarbonate 650 t.i.d., Tylenol. ASSESSMENT: 1. Acute kidney injury superimposed on chronic kidney disease, stage IV, resolved acute kidney injury. 2. Right pyelonephritis, right staghorn calculus, right hydronephrosis. 3. Right middle lobe pneumonia. 4. Secondary hyperparathyroidism. 5. Anemia of chronic disease. 6. Non-insulin dependent diabetes mellitus. 7. Peripheral vascular disease. 8. Hypertension. 9. History of paraspinal abscess and diverticulosis, colostomy, colostomy reversal. 10. Coronary artery disease. PLAN: 1. Continue antibiotics for urosepsis. 2. Continue phosphate binders. 3. Continue current antihypertensives. 4. Monitor fingersticks and maintain euglycemia. 5. Avoid nephrotoxins. 6. Plan for right pecutaneous nephrostomy and lithotripsy?. Ana Ochoa MD [facility] # [id number]
--- NOTE | 2017-12-11 04:21 | DS ---
SUMMARY: A 67-year-old male, receiving IV antibiotic therapy for a urinary tract infection with right hydronephrosis and renal stones, neurogenic bladder, coronary artery disease, peripheral vascular disease, remote history of colo-sacral fistula, urinary tract infection, urosepsis, noninsulin-dependent diabetes, hypertension, and chronic renal disease. The patient has been receiving IV antibiotics, being followed by Infectious Disease, Urology and Nephrology. He is also being followed by Cardiology. As per Cardiology, his anticoagulation therapy is on hold because of hematuria. The patient has had discussions with Urology and Interventional Radiology - Dr. Allen Ellington, regarding alternative management of hydronephrosis and renal stones. At this time, basically he has chosen to differ it for completion of his antibiotic therapy and will follow up with his individual physicians for further discussion. He will continue his medications and antibiotic therapy on the Transitional Care Unit, and will be followed by Nephrology, Urology, and Infectious Disease. Ana Frost MD
== END 2017-12-10 15:52 | DRG 689 ==
LOC: ED 08:29 → ERH 13:47 → 5RNO 15:10
PROVIDERS: ADMIT Internal Medicine; ATTEND Internal Medicine
DX: N13.6 Pyonephrosis (principal); N30.01 Acute cystitis with hematuria; N17.9 Acute kidney failure, unspecified; J18.9 Pneumonia, unspecified organism; E11.22 Type 2 diabetes mellitus with diabetic chronic kidney disease; N18.4 Chronic kidney disease, stage 4 (severe); E11.51 Type 2 diabetes mellitus with diabetic peripheral angiopathy without gangrene; E87.0 Hyperosmolality and hypernatremia; I48.0 Paroxysmal atrial fibrillation; E87.2 Acidosis; N25.81 Secondary hyperparathyroidism of renal origin; N31.9 Neuromuscular dysfunction of bladder, unspecified; I25.10 Atherosclerotic heart disease of native coronary artery without angina pectoris; K43.9 Ventral hernia without obstruction or gangrene; D63.1 Anemia in chronic kidney disease; E87.8 Other disorders of electrolyte and fluid balance, not elsewhere classified; I34.0 Nonrheumatic mitral (valve) insufficiency; E55.9 Vitamin D deficiency, unspecified; B95.2 Enterococcus as the cause of diseases classified elsewhere; I12.9 Hypertensive chronic kidney disease with stage 1 through stage 4 chronic kidney disease, or unspecified chronic kidney disease; R21 Rash and other nonspecific skin eruption; Z79.84 Long term (current) use of oral hypoglycemic drugs; Z87.440 Personal history of urinary (tract) infections; Z86.718 Personal history of other venous thrombosis and embolism; Z95.0 Presence of cardiac pacemaker; Z95.5 Presence of coronary angioplasty implant and graft; Z89.411 Acquired absence of right great toe; Z89.412 Acquired absence of left great toe; Z89.422 Acquired absence of other left toe(s); Z87.891 Personal history of nicotine dependence

== ENCOUNTER 2017-12-10 15:52 | Inpatient (IN) | payer OTHER, BC ==
[2017-12-10] MEDS: Nystatin 100,000 Units/gm Topical Pow(15 gm) TOP SCH (18:18)
[2017-12-10] MEDS ORDERED: MEROPENEM IVPB SCH (22:00)
[2017-12-10] MEDS ORDERED: Influenza Vaccine 60 mcg/0.5 mL SYR (4YR UP) IM ONE (22:12)
[2017-12-10] MEDS ORDERED: Pneumococcal 23-Valent Vaccine IM ONE (22:12)
[2017-12-11 06:02] LABS: HEMOGLOBIN 9.4 g/dL (14.0-18.0); MEAN CELL VOLUME 92.2 fl (80.0-105.0); MEAN CORPUSCULAR HEMOGLOBIN 29.3 pg (25.0-35.0); MEAN CORPUSCULAR HGB CONC 31.8 g/dl (31.0-37.0); MEAN PLATELET VOLUME 9.2 fl (7.0-11.0); RBC 3.21 10^6/uL (3.5-6.1); RED CELL DISTRIBUTION WIDTH 14.1 % (11.5-14.5); WHITE BLOOD COUNT 5.3 10^3/ul (4.5-11.0)
[2017-12-11 07:20] LABS: ALB/GLOB RATIO 0.8 (1.1-1.8); ALBUMIN 3.1 g/dL (3.0-4.8); CALCIUM 8.9 mg/dL (8.4-10.5)
[2017-12-11] MEDS: Nystatin 100,000 Units/gm Topical Pow(15 gm) TOP SCH ×2 (11:09→17:35)
--- NOTE | 2017-12-11 12:14 | CP.PCM.CON ---
History of Present Illness - History of Present Illness History of Present Illness: 65 year old male with PMH of history of Clostridium difficile diarrhea, DM, HTN , CAD, Atrial fibrillation, History of vertebral osteomyelitis was initially admitted in the acute care portion of [facility] because of right middle lobe pneumonia and UTI. He has been improving on antibiotics and is now transferred to [facility] for continued medical therapy and physical rehab. Infectious diseases consult is requested to continue his antibiotic therapy. Currently the patient is comfortable in bed, no fevers, no headache or dizziness , no chest pain, no SOB, no abdominal pain, no diarrhea, no dysuria, no nausea or vomiting. His cough is improved and has no flank pain currently. Review of Systems - Review of Systems All systems: reviewed and no additional remarkable complaints except (as per HPI ) Past Patient History - Infectious Disease Hx of Infectious Diseases: None - Tetanus Immunizations Tetanus Immunization: Unknown - Past Social History Smoking Status: Former Smoker - CARDIAC Hx Cardiac Disorders: Yes (CAD; Afib) Hx Hypertension: Yes - PULMONARY Hx Respiratory Disorders: Yes Hx Chronic Obstructive Pulmonary Disease (COPD): Yes - NEUROLOGICAL Hx Neurological Disorder: Yes HX Cerebrovascular Accident: Yes - HEENT Hx HEENT Problems: Yes (wears glasses) - RENAL Hx Chronic Kidney Disease: Yes Hx Renal Failure: Yes (CKD) - ENDOCRINE/METABOLIC Hx Endocrine Disorders: Yes Hx Diabetes Mellitus Type 2: Yes - HEMATOLOGICAL/ONCOLOGICAL Hx Blood Disorders: Yes (clumping platlets) - INTEGUMENTARY Hx Dermatological Problems: Yes - MUSCULOSKELETAL/RHEUMATOLOGICAL Hx Falls: Yes - GASTROINTESTINAL Hx Gastrointestinal Disorders: Yes (ANAL FISTULA,COLOSTOMY WITH REVERSAL, HERNIA ,DIVERTICULITIS) - GENITOURINARY/GYNECOLOGICAL Hx Genitourinary Disorders: Yes (AUCTE CYSTITIS,HEMATURIA UTI) Hx Reproductive Disorders: No - PSYCHIATRIC Hx Psychophysiologic Disorder: No Hx Depression: No Hx Emotional Abuse: No Hx Physical Abuse: No Hx Substance Use: No - SURGICAL HISTORY Hx Amputation: Yes (all toes left foot, rt great toe) Hx Cardiac Catheterization: Yes Hx Coronary Stent: Yes - ANESTHESIA Hx Anesthesia Reactions: No Hx Malignant Hyperthermia: No Meds Allergies/Adverse Reactions: Allergies Allergy/AdvReac Type Severity Reaction Status Date / Time ceftriaxone sodium Allergy ITCHING Verified 12/10/17 20:02 [From Rocephin] - Medications Medications: Current Medications Acetaminophen (Tylenol 325mg Tab) 650 mg PO Q6H PRN; Protocol PRN Reason: Fever >100.4 F Amlodipine Besylate (Norvasc) 5 mg PO DAILY NESHA PRN Reason: Protocol Doxycycline Hyclate (Doryx) 100 mg PO Q12 NESHA PRN Reason: Protocol Stop: 12/15/17 23:00 Last Admin: 12/10/17 21:55 Dose: 100 mg Ergocalciferol (Drisdol 50,000 Intl Units Cap) 1 cap PO Q7D NESHA PRN Reason: Protocol Meropenem 250 mg/ Sodium (Chloride) 100 mls @ 200 mls/hr IVPB Q12 [facility] Last Admin: 12/10/17 21:56 Dose: 200 mls/hr Metoprolol Tartrate (Lopressor) 50 mg PO BID NESHA PRN Reason: Protocol Last Admin: 12/10/17 18:19 Dose: 50 mg Metoprolol Tartrate (Lopressor) 25 mg PO BID NESHA PRN Reason: Protocol Last Admin: 12/10/17 18:17 Dose: 25 mg Nystatin (Nystop Topical Powder) 0 gm TOP BID NESHA PRN Reason: Protocol Stop: 12/12/17 23:00 Last Admin: 12/10/17 18:18 Dose: 1 applic Sevelamer HCl (Renagel) 800 mg PO ACTID [facility] PRN Reason: Protocol Last Admin: 12/10/17 18:18 Dose: 800 mg Sodium Bicarbonate (Sodium Bicarbonate Tab) 650 mg PO TID NESHA PRN Reason: Protocol Last Admin: 12/10/17 18:19 Dose: 650 mg Physical Exam - Constitutional Appears: Non-toxic, Chronically Ill - Head Exam Head Exam: NORMAL INSPECTION - ENT Exam ENT Exam: Mucous Membranes Moist - Neck Exam Neck exam: Negative for: Meningismus - Respiratory Exam Respiratory Exam: Decreased Breath Sounds - Cardiovascular Exam Cardiovascular Exam: +S1, +S2 - GI/Abdominal Exam GI & Abdominal Exam: Soft. absent: Tenderness Results - Vital Signs Recent Vital Signs: Last Vital Signs Temp 97 F L 12/10/17 21:56 Pulse 62 12/10/17 21:56 Resp 16 12/10/17 21:56 BP 129/67 12/10/17 21:56 Pulse Ox 97 12/10/17 17:43 - Labs Result Diagrams: 12/11/17 05:00 12/11/17 05:00 Labs: Laboratory Results - last 24 hr 12/11/17 12/11/17 12/11/17 05:00 05:00 05:56 WBC 5.3 RBC 3.21 L Hgb 9.4 L Hct 29.6 L MCV 92.2 MCH 29.3 MCHC 31.8 RDW 14.1 Plt Count 145 MPV 9.2 Sodium 145 Potassium 4.2 Chloride 115 H Carbon Dioxide 22 Anion Gap 12 BUN 55 H Creatinine 4.1 H Est GFR ( Amer) 18 Est GFR (Non-Af Amer) 15 POC Glucose (mg/dL) 87 Random Glucose 97 Calcium 8.9 Total Bilirubin 0.2 AST 24 ALT 23 Alkaline Phosphatase 76 Total Protein 7.2 Albumin 3.1 Globulin 4.1 Albumin/Globulin Ratio 0.8 L Assessment & Plan - Assessment and Plan (Free Text) Plan: Assessment right middle lobe pneumonia, slowly improving cystitis with right sided hydronephrosis Enterococcus urinary tract infection Diarrhea R/O pseudomembranous colitis severe sepsis secondary to Morganella urinary tract infection, clinically improved history of Clostridium difficile diarrhea DM HTN CAD Atrial fibrillation History of vertebral osteomyelitis Plan continue Meropenem and Doxycycline day 5 to complete 4-7 days of therapy follow up further plans of Urology
--- NOTE | 2017-12-11 20:19 | HP ---
HISTORY OF PRESENT ILLNESS: A 67-year-old male admitted to the Transitional Care Unit with a history of urinary tract infection, hematuria, right hydronephrosis and renal stones. PAST MEDICAL HISTORY: Diabetes, coronary artery disease, peripheral vascular disease, fistula, neurogenic bladder, hypertension, urosepsis, toe amputations on the right foot, chronic kidney disease, acute renal insufficiency. ALLERGIES: CEFTRIAXONE. SOCIAL HISTORY: He is a nonsmoker, nondrinker, nondrug user. ACTIVE MEDICATIONS: Consist of Doryx, Drisdol, Lopressor, meropenem, Norvasc, nystatin topical, Renagel, sodium bicarbonate and Tylenol. REVIEW OF SYSTEMS: Multiple systems are reviewed. Pertinent findings as per the physical. PHYSICAL EXAMINATION: VITAL SIGNS: Show a temperature of 97, blood pressure of 129/67, pulse of 62, oxygen saturation is 98% on room air. GENERAL: He is alert and oriented x3. NECK: Supple. No JVD. LUNGS: Clear. ABDOMEN: Soft. He has an abdominal hernia. EXTREMITIES: Show no evidence of edema. LABORATORY DATA: Shows WBC of 5.3, RBC of 3.21, hemoglobin 9.4, hematocrit 29.6, platelet count is 145. Chemistry shows sodium 145, potassium 4.2, chloride 115, BUN is 55, creatinine is 4.1. His blood sugar is 87. His LFTs are normal. His albumin is 3.1. ASSESSMENT AND PLAN: Currently, the patient is continuing on IV antibiotics. He is being followed by Infectious Disease. He is also being followed by Nephrology for his chronic kidney disease, by Urology for his renal stones and right hydronephrosis. He has been seen by Cardiology. His anticoagulation therapy has been held on hold as per the Cardiology because of the hematuria. We will continue current level of care. He will receive occupational and physical therapy and he has met with Dr. Allen Ellington regarding the possibility of nephrostomy with external drainage of his stones, which was recommended by Dr. Sotelo, his urologist. However, at the moment, that has been placed on hold, pending clearance of his infection. Ana Frost MD [facility] # [id number]
[2017-12-12] MEDS: Linezolid 600 mg in D5W 300 ml 600 MG/300 ML BAG IVPB SCH ×2 (09:54→21:32)
[2017-12-12] MEDS: Nystatin 100,000 Units/gm Topical Pow(15 gm) TOP SCH ×2 (10:00→18:20)
--- NOTE | 2017-12-12 10:29 | CP.PCM.PN ---
Subjective - Date & Time of Evaluation Date of Evaluation: 12/12/17 Time of Evaluation: 09:40 - Subjective Subjective: Patient is feeling better, breathing well at rest, no cough, no diarrhea, no dysuria currently. Objective - Vital Signs/Intake and Output Vital Signs (last 24 hours): Temp Pulse Resp BP Pulse Ox 98 F 64 17 126/71 93 L 12/12/17 06:00 12/12/17 06:00 12/12/17 06:00 12/12/17 06:00 12/12/17 06:00 Intake and Output: 12/12/17 12/12/17 06:59 18:59 Output Total 300 Balance -300 - Medications Medications: Current Medications Acetaminophen (Tylenol 325mg Tab) 650 mg PO Q6H PRN; Protocol PRN Reason: Fever >100.4 F Amlodipine Besylate (Norvasc) 5 mg PO DAILY NESHA PRN Reason: Protocol Last Admin: 12/11/17 11:08 Dose: 5 mg Doxycycline Hyclate (Doryx) 100 mg PO Q12 N[facility]HA PRN Reason: Protocol Stop: 12/15/17 23:00 Last Admin: 12/11/17 21:40 Dose: 100 mg Ergocalciferol (Drisdol 50,000 Intl Units Cap) 1 cap PO Q7D NESHA PRN Reason: Protocol Meropenem 250 mg/ Sodium (Chloride) 100 mls @ 100 mls/hr IVPB Q12H [facility]HA PRN Reason: Protocol Stop: 12/19/17 09:01 Linezolid (Zyvox 600mg/300ml D5w) 600 mg in 300 mls @ 200 mls/hr IVPB Q12 NESHA PRN Reason: Protocol Stop: 12/19/17 10:01 Metoprolol Tartrate (Lopressor) 50 mg PO BID NESHA PRN Reason: Protocol Last Admin: 12/11/17 17:31 Dose: 50 mg Metoprolol Tartrate (Lopressor) 25 mg PO BID NESHA PRN Reason: Protocol Last Admin: 12/11/17 17:31 Dose: 25 mg Nystatin (Nystop Topical Powder) 0 gm TOP BID NESHA PRN Reason: Protocol Stop: 12/12/17 23:00 Last Admin: 12/11/17 17:35 Dose: Not Given Sevelamer HCl (Renagel) 800 mg PO ACTID NESHA PRN Reason: Protocol Last Admin: 12/12/17 08:18 Dose: 800 mg Sodium Bicarbonate (Sodium Bicarbonate Tab) 650 mg PO TID NESHA PRN Reason: Protocol Last Admin: 12/11/17 17:35 Dose: 650 mg - Labs Labs: 12/11/17 05:00 12/11/17 05:00 - Constitutional Appears: Non-toxic, Chronically Ill - Head Exam Head Exam: NORMAL INSPECTION - ENT Exam ENT Exam: Mucous Membranes Moist - Neck Exam Neck Exam: absent: Meningismus - Respiratory Exam Respiratory Exam: Decreased Breath Sounds - Cardiovascular Exam Cardiovascular Exam: +S1, +S2 - GI/Abdominal Exam GI & Abdominal Exam: Soft. absent: Tenderness Assessment and Plan - Assessment and Plan (Free Text) Plan: Assessment right middle lobe pneumonia, slowly improving cystitis with right sided hydronephrosis; E. faecium found in the urine, sensitive to Ampicillin and Vancomycin Enterococcus urinary tract infection Diarrhea R/O pseudomembranous colitis severe sepsis secondary to Morganella urinary tract infection, clinically improved history of Clostridium difficile diarrhea DM HTN CAD Atrial fibrillation History of vertebral osteomyelitis Plan continue Meropenem and Doxycycline day 6 to complete up to 7 days of therapy started Zyvox for the E. faecium in the urine; follow up repeat urine cx follow up further plans of Urology discussed with Dr. Frost
--- NOTE | 2017-12-12 14:31 | PN ---
DATE: SUBJECTIVE: A 67-year-old male in the transitional care unit receiving IV antibiotic therapy for urinary tract infection with right hydronephrosis and renal stones. He is also receiving occupational and physical therapy. PHYSICAL EXAMINATION: VITAL SIGNS: Show a temperature of 98, his pulse is 64, his blood pressure is 126/71, oxygen saturation is reported to be 93% on room air. GENERAL: He is alert and oriented x3. NECK: Supple. There is no JVD. LUNGS: Clear. ABDOMEN: Soft. There is an abdominal hernia. EXTREMITIES: Show no evidence of edema. MEDICATIONS: Patient is taking Zyvox for his urinary tract infection along with Merrem and Doryx for his pneumonia. He is on nystatin topical for rash. He is on Lopressor and Norvasc for his coronary disease and hypertension. He is on Drisdol supplementation, Renagel, sodium bicarb for his chronic renal disease. PLAN: We will follow up the patient's labs and continue the current therapy as per the individual consultants. Ana Frost MD
--- NOTE | 2017-12-12 18:30 | PN ---
DATE: 12/12/2017 SUBJECTIVE: Patient is seen sitting in chair. He is awake, he is alert, he is comfortable. He denies any pain. He denies any shortness of breath. PHYSICAL EXAMINATION: GENERAL: Obese, elderly male, sitting in chair. VITAL SIGNS: Blood pressure 128/81, heart rate 75, respiratory rate 18, temperature 98.1. HEENT: Normocephalic, atraumatic. NECK: Supple, no JVD. LUNGS: Bilateral equal entry, no rales. CARDIAC: S1, S2. Regular rate and rhythm. No murmur, no rub. ABDOMEN: Obese, distended, soft, nontender, bowel sounds present. EXTREMITIES: No lower extremity edema. LABORATORY DATA: No new labs. MEDICATIONS: List reviewed. ASSESSMENT: 1. Resolved acute kidney injury. 2. Stable chronic kidney disease, stage IV. 3. Right pyelonephritis/hydronephrosis/urinary tract infection, enterococcal. 4. Hypertension. 5. Noninsulin-dependent diabetes mellitus. 6. Anemia of chronic disease. 7. Secondary hyperparathyroidism. PLAN: 1. Continue antibiotics as per ID recommendations. 2. Continue antihypertensives. 3. Monitor fingersticks. 4. Intravenous iron if cleared by ID. Ana Ochoa MD
--- NOTE | 2017-12-13 00:05 | CON ---
DATE: 12/11/2017 REASON FOR CONSULTATION: Hypernatremia. HISTORY OF PRESENT ILLNESS: This is a 67-year-old male, known to me from prior evaluations. The patient was initially admitted to the medical side with complaints of hematuria, frequency. The patient was found to have right pyelonephritis, right hydronephrosis, UTI. The patient was also found to have acute kidney injury superimposed on his chronic kidney disease stage IV/V. The patient was treated with IV antibiotics, IV fluids. Now transitioned into the Transitional Care Unit for rehabilitation. Consultation is requested for elevated sodium of 145. The patient denies any diarrhea. He denies any nausea or vomiting. He denies any burning in the urine. He denies any hematuria any more. PAST MEDICAL AND SURGICAL HISTORY: NIDDM, hypertension, chronic kidney disease stage IV, anemia of chronic disease, right staghorn calculus, history of right hydronephrosis, recurrent UTI, history of pyelonephritis, history of diverticulitis, colostomy, colostomy reversal, neurogenic bladder. FAMILY HISTORY: Noncontributory. SOCIAL HISTORY: No smoking, no alcohol use, no IV drug abuse. ALLERGIES: CEFTRIAXONE. REVIEW OF SYSTEMS: All systems are reviewed, pertinent positives as mentioned in the history of presenting illness, rest unremarkable. PHYSICAL EXAMINATION: GENERAL: Elderly male, lying in bed. VITAL SIGNS: Blood pressure 128/81, heart rate 75, respiratory rate 18, temperature 98. HEENT: Normocephalic, atraumatic. NECK: Supple, no JVD. LUNGS: Bilateral equal air entry, bilateral equal expansion, no rales. CARDIAC: S1, S2. Regular rate and rhythm. No murmur, no rub. ABDOMEN: Obese, distended, soft, multiple scars. EXTREMITIES: No lower extremity edema. INTAKE AND OUTPUT: Not charted. LABORATORY DATA: WBC 5, hemoglobin 9.4, hematocrit 30, platelets 145. Sodium 145, potassium 4.2, chloride 115, CO2 of 22, BUN 55, creatinine 4.1, glucose 97, calcium 8.9, AST 24, ALT 23, albumin 3.1. CURRENT MEDICATIONS: Doxycycline 100 q. 12, Drisdol, Lopressor, meropenem 250 q. 12, amlodipine 5, nystatin, RenaGel, sodium bicarbonate 650 t.i.d., Tylenol, Zyvox. ASSESSMENT AND PLAN: 1. Hypernatremia, dehydration, mild 2. Right middle lobe pneumonia. 3. Right-sided pyelonephritis/hydronephrosis/enterococcal urinary tract infection. 4. Non-insulin dependent diabetes mellitus. 5. Resolved acute kidney injury. 6. Chronic kidney disease stage IV. 7. Chronic anemia. PLAN: 1. Continue antibiotics as per ID recommendations. 2. Push p.o. free fluids. 3. Avoid nephrotoxins. 4. Physical therapy Ana Ochoa MD
[2017-12-13 07:57] LABS: BASO # 0.01 K/mm3 (0.0-2.0); BASO % 0.2 % (0.0-3.0); EOS # 0.2 (0.0-0.7); EOS % 3.6 % (1.5-5.0); GRAN # 3.9 (1.4-6.5); GRAN % 69.5 % (50.0-68.0); HEMOGLOBIN 9.6 g/dL (14.0-18.0); LYMPH # 1.1 (1.2-3.4); LYMPH % 18.7 % (22.0-35.0); MEAN CELL VOLUME 92.6 fl (80.0-105.0); MEAN CORPUSCULAR HEMOGLOBIN 29.4 pg (25.0-35.0); MEAN CORPUSCULAR HGB CONC 31.8 g/dl (31.0-37.0); MEAN PLATELET VOLUME 9.2 fl (7.0-11.0); MONO # 0.5 (0.1-0.6); RBC 3.26 10^6/uL (3.5-6.1); RED CELL DISTRIBUTION WIDTH 14.1 % (11.5-14.5); WHITE BLOOD COUNT 5.6 10^3/ul (4.5-11.0)
[2017-12-13 09:04] LABS: ALB/GLOB RATIO 0.8 (1.1-1.8); ALBUMIN 3.1 g/dL (3.0-4.8); CALCIUM 8.7 mg/dL (8.4-10.5)
--- NOTE | 2017-12-13 09:45 | PN ---
DATE: SUBJECTIVE: The patient is currently seen comfortable receiving antibiotic therapy for his urinary tract infection and right middle lobe pneumonia. He remains in the TCU. He is contemplating all of his options regarding possible nephrostomy tube placement with a hope of breaking up that large staghorn calculus on the right side. MEDICATIONS: Medication list reviewed. The patient is currently on doxycycline, vitamin D, iron, metoprolol, meropenem, Norvasc, Renagel, sodium bicarbonate tablets, Tylenol p.r.n., and Zyvox. OBJECTIVE VITAL SIGNS: Blood pressure 128 to 149 systolic with diastolics ranging from 81 to 94. Temperature 98.1, respiratory rate is 18 with a pulse of 65. HEENT: Exam shows him to be normocephalic, atraumatic. Conjunctivae are pale. Sclerae are nonicteric. NECK: Supple. No neck vein distention. CHEST: Clear to auscultation and percussion. No rales, rhonchi or wheezing. CARDIOVASCULAR: Shows a regular rate and rhythm with soft systolic murmur, left lower sternal border. Positive permanent pacemaker. ABDOMEN: Soft. Bowel sounds normal. No rebound, no guarding. He has a large left lower quadrant nonreducible abdominal wall hernia and area of previous surgical scars. EXTREMITIES: Show no lower extremity cyanosis, clubbing or edema. He has diminished lower extremity pulses. LABORATORY DATA AND IMAGING: CBC today: White blood cell count 5.6, hemoglobin stable at 9.6, platelet count of 149,000. Chemistry show a BUN of 58 with a creatinine of 4.3. Creatinine is at or near baseline levels. Sodium 144, potassium 4.6, chloride 115 with a CO2 of 19, anion gap was 14. Liver enzymes are normal. Albumin is 3.1. Microbiology, outpatient setting, urine was positive for E-coli resistant to oral antibiotics. In-hospital urine was positive for Enterococcus. Blood cultures were negative. ASSESSMENT 1. Status post acute renal failure superimposed on chronic kidney disease stage IV. He is currently back to baseline range. He continues to have a mild metabolic acidosis. The patient does remain on sodium bicarbonate tablets. 2. History of Escherichia coli urinary tract infection, history of enterococcus urinary tract infection. The patient is considering the possibility of having a percutaneous nephrostomy on the right side with possible breaking up of the large staghorn calculus. He will discuss this with Dr. Sotelo, his urologist, in the outpatient setting post discharge. 3. Right middle lobe pneumonia. The patient is completing a course of antibiotic therapy. 4. History of recurrent urinary tract infections, neurogenic bladder, history of a large right kidney staghorn calculus with right-sided hydronephrosis. Again, options as noted above. 5. History of secondary hyperparathyroidism and vitamin D deficiency. The patient will continue binder therapy, renal diet and vitamin D therapy on an as-needed basis. 6. History of anemia. Hemoglobin remains in his baseline range considering his chronic kidney disease. The patient had received Aranesp 60 mcg on 12/09/2017. His iron saturations were low and he is receiving Venofer. 7. History of hypertension. The patient will continue beta-gino therapy and calcium channel gino therapy. We will avoid JACQUELINE inhibitors and angiotensin receptor blockers in light of his advanced chronic kidney disease. 8. History of [id number] diabetes mellitus. Sugar control has been acceptable. 9. History of peripheral vascular disease, status post multiple lower extremity foot surgeries. This appears to be stable. 10. History of paraspinal abscess with history of diverticulosis, colectomy, colostomy reversal of colostomy, all appear to be stable. 11. History of coronary artery disease with mild valvular heart disease. He is status post permanent pacemaker placement for severe bradycardia. The patient is followed by his [facility]ator [facility], Dr. Anderson. PLAN 1. The patient will make a decision with his urologist in the outpatient setting regarding possible right percutaneous nephrostomy tube placement with breakup of the staghorn calculus. 2. Continue oral sodium bicarbonate supplements. 3. Continue to receive Aranesp on a weekly basis and complete a course of IV Venofer. 4. Continue renal diet, vitamin D, binder therapy. 5. Complete course of antibiotic therapy in the TCU. Bryan Vail MD
--- NOTE | 2017-12-13 12:25 | PN ---
DATE: SUBJECTIVE: A 67-year-old male on transitional care unit receiving IV antibiotic therapy for urinary tract infection with right hydronephrosis and renal stones, chronic renal disease, peripheral vascular disease, non-insulin dependent diabetes, chronic anemia, hypertension, coronary artery disease, remote history of rectal colo-fistula, urosepsis history. Currently, his medications consist of Doryx, Drisdol. He is receiving IM sucrose therapy. He is on Lopressor, meropenem, Zyvox, sodium bicarbonate, Renagel and Norvasc. PHYSICAL EXAMINATION GENERAL: He is alert and oriented x3. VITAL SIGNS: His temperature is 98.1, his blood pressure is 149/90. LUNGS: Clear. HEART: In S1, S2 rhythm. ABDOMEN: Soft. Positive bowel sounds. He has a hernia in place. EXTREMITIES: No evidence of edema. He is completing antibiotics for pneumonia and urinary tract infection. LABORATORY DATA: His labs show WBC of 5.6, RBC of 3.26, hemoglobin 9.6, hematocrit 30.2, platelet count is 149,000. Chemistry shows a sodium of 144, potassium 4.6, chloride 115, CO2 of 19, BUN is 58, creatinine is 4.3. LFTs are normal. Random blood sugar is 93. We will continue current antibiotic therapy and continue recommendations as per the individual consultants. Ana Frost MD
--- NOTE | 2017-12-13 12:36 | CP.PCM.PN ---
Subjective - Date & Time of Evaluation Date of Evaluation: 12/13/17 Time of Evaluation: 10:55 - Subjective Subjective: Feeling better, no fevers, not in distress. Objective - Vital Signs/Intake and Output Vital Signs (last 24 hours): Temp Pulse Resp BP Pulse Ox 98.1 F 65 18 149/94 H 99 12/12/17 11:16 12/12/17 18:19 12/12/17 11:16 12/12/17 18:19 12/12/17 11:16 - Medications Medications: Current Medications Acetaminophen (Tylenol 325mg Tab) 650 mg PO Q6H PRN; Protocol PRN Reason: Fever >100.4 F Amlodipine Besylate (Norvasc) 5 mg PO DAILY NESHA PRN Reason: Protocol Last Admin: 12/12/17 09:56 Dose: 5 mg Doxycycline Hyclate (Doryx) 100 mg PO Q12 NESHA PRN Reason: Protocol Stop: 12/15/17 23:00 Last Admin: 12/12/17 21:33 Dose: 100 mg Ergocalciferol (Drisdol 50,000 Intl Units Cap) 1 cap PO Q7D NESHA PRN Reason: Protocol Meropenem 250 mg/ Sodium (Chloride) 100 mls @ 100 mls/hr IVPB Q12H N[facility]HA PRN Reason: Protocol Stop: 12/19/17 09:01 Last Admin: 12/12/17 21:32 Dose: 100 mls/hr Linezolid (Zyvox 600mg/300ml D5w) 600 mg in 300 mls @ 200 mls/hr IVPB Q12 NESHA PRN Reason: Protocol Stop: 12/19/17 10:01 Last Admin: 12/12/17 21:32 Dose: 200 mls/hr Iron Sucrose 200 mg/ Sodium (Chloride) 110 mls @ 110 mls/hr IVPB DAILY NESHA Stop: 12/16/17 10:59 Last Admin: 12/12/17 18:17 Dose: 110 mls/hr Metoprolol Tartrate (Lopressor) 50 mg PO BID NESHA PRN Reason: Protocol Last Admin: 12/12/17 18:18 Dose: 50 mg Metoprolol Tartrate (Lopressor) 25 mg PO BID NESHA PRN Reason: Protocol Last Admin: 12/12/17 18:19 Dose: 25 mg Sevelamer HCl (Renagel) 800 mg PO ACTID NESHA PRN Reason: Protocol Last Admin: 12/12/17 18:18 Dose: 800 mg Sodium Bicarbonate (Sodium Bicarbonate Tab) 650 mg PO TID NESHA PRN Reason: Protocol Last Admin: 12/12/17 18:17 Dose: 650 mg - Labs Labs: 12/13/17 07:00 12/13/17 07:00 - Constitutional Appears: Non-toxic, Chronically Ill - Head Exam Head Exam: NORMAL INSPECTION - Neck Exam Neck Exam: absent: Meningismus - Respiratory Exam Respiratory Exam: Decreased Breath Sounds - Cardiovascular Exam Cardiovascular Exam: +S1, +S2 - GI/Abdominal Exam GI & Abdominal Exam: Soft. absent: Tenderness Assessment and Plan - Assessment and Plan (Free Text) Plan: Assessment right middle lobe pneumonia, clinically improving cystitis with right sided hydronephrosis; E. faecium found in the urine, sensitive to Ampicillin and Vancomycin Enterococcus urinary tract infection Diarrhea R/O pseudomembranous colitis severe sepsis secondary to Morganella urinary tract infection, clinically improved history of Clostridium difficile diarrhea DM HTN CAD Atrial fibrillation History of vertebral osteomyelitis Plan continue Meropenem and Doxycycline day 7 to complete up to 7 days of therapy continue Zyvox for the E. faecium in the urine; repeat urine cx is now clear of bacteria follow up further plans of Urology discussed with Dr. Frost
[2017-12-13] MEDS: Linezolid 600 mg in D5W 300 ml 600 MG/300 ML BAG IVPB SCH ×2 (14:49→22:05)
[2017-12-14] MEDS: Linezolid 600 mg in D5W 300 ml 600 MG/300 ML BAG IVPB SCH ×2 (10:50→22:30)
--- NOTE | 2017-12-14 12:42 | CP.PCM.PN ---
Subjective - Date & Time of Evaluation Date of Evaluation: 12/14/17 Time of Evaluation: 12:15 - Subjective Subjective: Feeling better, no shortness of breath at rest, no fevers, no dysuria currently. Objective - Vital Signs/Intake and Output Vital Signs (last 24 hours): Temp Pulse Resp BP Pulse Ox 97.6 F 75 18 149/84 98 12/13/17 13:44 12/13/17 19:00 12/13/17 13:44 12/13/17 19:00 12/13/17 13:44 - Medications Medications: Current Medications Acetaminophen (Tylenol 325mg Tab) 650 mg PO Q6H PRN; Protocol PRN Reason: Fever >100.4 F Amlodipine Besylate (Norvasc) 5 mg PO DAILY NESHA PRN Reason: Protocol Last Admin: 12/13/17 11:11 Dose: 5 mg Ergocalciferol (Drisdol 50,000 Intl Units Cap) 1 cap PO Q7D NESHA PRN Reason: Protocol Linezolid (Zyvox 600mg/300ml D5w) 600 mg in 300 mls @ 200 mls/hr IVPB Q12 NESHA PRN Reason: Protocol Stop: 12/19/17 10:01 Last Admin: 12/13/17 22:05 Dose: 200 mls/hr Iron Sucrose 200 mg/ Sodium (Chloride) 110 mls @ 110 mls/hr IVPB DAILY [facility] Stop: 12/16/17 10:59 Last Admin: 12/13/17 11:11 Dose: 110 mls/hr Metoprolol Tartrate (Lopressor) 50 mg PO BID NESHA PRN Reason: Protocol Last Admin: 12/13/17 18:59 Dose: 50 mg Metoprolol Tartrate (Lopressor) 25 mg PO BID NESHA PRN Reason: Protocol Last Admin: 12/13/17 19:00 Dose: 25 mg Sevelamer HCl (Renagel) 800 mg PO ACTID NESHA PRN Reason: Protocol Last Admin: 12/13/17 15:58 Dose: 800 mg Sodium Bicarbonate (Sodium Bicarbonate Tab) 650 mg PO TID NESHA PRN Reason: Protocol Last Admin: 12/13/17 18:59 Dose: 650 mg - Labs Labs: 12/13/17 07:00 12/13/17 07:00 - Constitutional Appears: Chronically Ill - Head Exam Head Exam: NORMAL INSPECTION - ENT Exam ENT Exam: Mucous Membranes Moist - Neck Exam Neck Exam: absent: Meningismus - Respiratory Exam Respiratory Exam: Decreased Breath Sounds - Cardiovascular Exam Cardiovascular Exam: +S1, +S2 - GI/Abdominal Exam GI & Abdominal Exam: Soft. absent: Tenderness Assessment and Plan - Assessment and Plan (Free Text) Plan: Assessment right middle lobe pneumonia, clinically improved and S/P treatment cystitis with right sided hydronephrosis; E. faecium found in the urine, sensitive to Ampicillin and Vancomycin Enterococcus urinary tract infection Diarrhea R/O pseudomembranous colitis severe sepsis secondary to Morganella urinary tract infection, clinically improved history of Clostridium difficile diarrhea DM HTN CAD Atrial fibrillation History of vertebral osteomyelitis Plan S/P 7 days of Meropenem and Doxycycline continue Zyvox day 3 for the E. faecium in the urine; repeat urine cx is now clear of bacteria - can complete 7 days of Zyvox (Day 3 today) follow up further plans of Urology
--- NOTE | 2017-12-14 13:27 | PN ---
DATE: SUBJECTIVE: A 67-year-old male on the Transitional Care Unit, receiving physical and occupational therapy. He is also receiving antibiotic therapy for urinary tract infection, cystitis, right hydronephrosis with renal stones. PHYSICAL EXAMINATION VITAL SIGNS: Blood pressure is 148/82, his pulse is 79, his temperature is 98. LUNGS: Clear. HEART: In S1, S2 rhythm. ABDOMEN: Soft. Scaphoid. Positive bowel sounds with a hernia in place. EXTREMITIES: Show no evidence of edema. The patient is completing his course of antibiotics for the above mentioned and he also had pneumonia. His chronic kidney disease is being followed by Nephrology. Infectious Disease is also following the patient. Continue current level of care. Ana Frost MD
--- NOTE | 2017-12-14 18:54 | PN ---
DATE: SUBJECTIVE: The patient is currently seen receiving his last bag of IV antibiotics. He is switching over to oral antibiotic therapy because of difficulty with his IV access. He is being treated for urinary tract infection and a right middle lobe pneumonia. MEDICATIONS: Medication list reviewed. The patient is currently on ergocalciferol, IV Venofer, Lopressor, Norvasc, Renagel, sodium bicarbonate, p.r.n. Tylenol, and he will be switched over to oral Zyvox post completion of his last bag of IV Zyvox. OBJECTIVE: VITAL SIGNS: Blood pressure 148/82, temperature 97.4, respiratory rate is 16, with a pulse of 69. HEENT: Shows him to be normocephalic, atraumatic. Conjunctiva are pale. Sclerae are nonicteric. NECK: Supple. No neck vein distention. CHEST: Clear to auscultation and percussion. No rales, rhonchi or wheezing. CARDIOVASCULAR: Shows a regular rate and rhythm, with a soft systolic murmur in the left lower sternal border. No S3, no S4. No rub. Positive pacemaker. ABDOMEN: Soft. Bowel sounds normal. No rebound or guarding. He has a large left lower quadrant nonreducible abdominal wall hernia in an area of previous surgical scars. EXTREMITIES: Show no lower extremity cyanosis, clubbing or edema. He has diminished lower extremity pulses bilaterally. LABORATORY DATA AND IMAGING: No labs done today. Labs from yesterday, CBC, white blood cell count 5.6, hemoglobin 9.6, platelet count of 149,000. Chemistries showed normal sodium, normal potassium, chloride 150, with a CO2 of 19. BUN was 58, with a creatinine of 4.3, which are within his baseline range. Sugar was 96. Microbiology: Outpatient urine cultures are positive for E. coli, resistant to all oral antibiotics. In-hospital urine cultures are positive for Enterococcus, and blood cultures were negative. ASSESSMENT: 1. Status post acute renal failure superimposed on chronic kidney disease stage IV. The patient is currently back to baseline levels. He does have a metabolic acidosis and continues on oral sodium bicarbonate therapy. 2. History of Escherichia coli urinary tract infection, history of enterococcus urinary tract infection, and history of right middle lobe pneumonia. The patient will transition over from IV to oral antibiotic therapy. 3. History of recurrent urinary tract infections, neurogenic bladder, history of a large right kidney staghorn calculus with right-sided hydronephrosis. Again, the patient is considering the option of percutaneous nephrostomy with breakup of the large staghorn calculus. He will have this discussion with Dr. Sotelo, his urologist, in the outpatient setting. 4. History of secondary hyperparathyroidism and vitamin D deficiency. The patient will continue binder therapy, renal diet and vitamin D therapy. 5. History of anemia. Hemoglobin appears stable in the 9 to 10 range. The patient received Aranesp 60 mcg on 12/09/2017. Iron saturations are low; hence, the patient is receiving IV Venofer. 6. History of hypertension. Blood pressure control is acceptable on current medical therapy. We will continue beta-gino therapy and calcium channel gino therapy. 7. History of non-insulin dependent diabetes mellitus, sugar control is acceptable. 8. History of peripheral vascular disease status post multiple lower extremity foot surgeries. These appear to be stable. 9. History of paraspinal abscess with history of diverticulosis, colectomy, colostomy, reversal of colostomy, all appeared to be stable. The patient does have a large left lower quadrant abdominal wall hernia in his previous surgical sites. This is being managed medically. 10. History of atherosclerotic heart disease with mild valvular heart disease. The patient has a permanent pacemaker placed for bradycardia. He is followed by his loss control consultant. PLAN: 1. Agree with switch over to oral antibiotic therapy in light of difficulties with IV access. 2. Agree with discussion with Urology regarding possible nephrostomy tube with breakup of his large right kidney staghorn calculus as the patient has recurrent urinary tract infections and hydronephrosis. 3. Continue oral sodium bicarbonate therapy. 4. Continue Aranesp on a weekly basis during the hospitalization and replete his iron stores with IV Venofer. 5. Continue renal diet, vitamin D and binder therapy as needed. 6. Complete his course of antibiotic therapy in the TCU. Bryan Vail MD
--- NOTE | 2017-12-15 00:52 | CP.PCM.PN ---
Subjective - Date & Time of Evaluation Date of Evaluation: 12/15/17 Time of Evaluation: 00:52 - Subjective Subjective: # 22 angiocath was inserted in right hand dorsum. Objective - Vital Signs/Intake and Output Vital Signs (last 24 hours): Temp Pulse Resp BP Pulse Ox 97.4 F L 51 L 16 110/77 97 12/14/17 10:00 12/14/17 17:52 12/14/17 10:00 12/14/17 17:52 12/14/17 10:00 - Medications Medications: Current Medications Acetaminophen (Tylenol 325mg Tab) 650 mg PO Q6H PRN; Protocol PRN Reason: Fever >100.4 F Amlodipine Besylate (Norvasc) 5 mg PO DAILY NESHA PRN Reason: Protocol Last Admin: 12/14/17 10:00 Dose: 5 mg Ergocalciferol (Drisdol 50,000 Intl Units Cap) 1 cap PO Q7D NESHA PRN Reason: Protocol Linezolid (Zyvox 600mg/300ml D5w) 600 mg in 300 mls @ 200 mls/hr IVPB Q12 NESHA PRN Reason: Protocol Stop: 12/19/17 10:01 Last Admin: 12/14/17 22:30 Dose: 200 mls/hr Iron Sucrose 200 mg/ Sodium (Chloride) 110 mls @ 110 mls/hr IVPB DAILY N[facility] Stop: 12/16/17 10:59 Last Admin: 12/14/17 10:00 Dose: 110 mls/hr Metoprolol Tartrate (Lopressor) 50 mg PO BID NESHA PRN Reason: Protocol Last Admin: 12/14/17 17:52 Dose: 50 mg Metoprolol Tartrate (Lopressor) 25 mg PO BID NESHA PRN Reason: Protocol Last Admin: 12/14/17 17:51 Dose: 25 mg Sevelamer HCl (Renagel) 800 mg PO ACTID NESHA PRN Reason: Protocol Last Admin: 12/14/17 16:45 Dose: 800 mg Sodium Bicarbonate (Sodium Bicarbonate Tab) 650 mg PO TID NESHA PRN Reason: Protocol Last Admin: 12/14/17 17:50 Dose: 650 mg - Labs Labs: 12/13/17 07:00 12/13/17 07:00
[2017-12-15 06:29] LABS: HEMOGLOBIN 9.8 g/dL (14.0-18.0); MEAN CELL VOLUME 92.1 fl (80.0-105.0); MEAN CORPUSCULAR HEMOGLOBIN 29.6 pg (25.0-35.0); MEAN CORPUSCULAR HGB CONC 32.1 g/dl (31.0-37.0); MEAN PLATELET VOLUME 9.2 fl (7.0-11.0); RBC 3.31 10^6/uL (3.5-6.1); RED CELL DISTRIBUTION WIDTH 14.3 % (11.5-14.5); WHITE BLOOD COUNT 6.2 10^3/ul (4.5-11.0)
[2017-12-15 07:05] LABS: ALB/GLOB RATIO 0.8 (1.1-1.8); ALBUMIN 3.1 g/dL (3.0-4.8); CALCIUM 8.8 mg/dL (8.4-10.5); MAGNESIUM 1.5 mg/dL (1.7-2.2)
--- NOTE | 2017-12-15 11:47 | CP.PCM.PN ---
Subjective - Date & Time of Evaluation Date of Evaluation: 12/15/17 Time of Evaluation: 10:20 - Subjective Subjective: Comfortably resting in bed, no fevers, not in distress. Objective - Vital Signs/Intake and Output Vital Signs (last 24 hours): Temp Pulse Resp BP Pulse Ox 97.4 F L 51 L 16 110/77 97 12/14/17 10:00 12/14/17 17:52 12/14/17 10:00 12/14/17 17:52 12/14/17 10:00 - Medications Medications: Current Medications Acetaminophen (Tylenol 325mg Tab) 650 mg PO Q6H PRN; Protocol PRN Reason: Fever >100.4 F Amlodipine Besylate (Norvasc) 5 mg PO DAILY NESHA PRN Reason: Protocol Last Admin: 12/14/17 10:00 Dose: 5 mg Ergocalciferol (Drisdol 50,000 Intl Units Cap) 1 cap PO Q7D NESHA PRN Reason: Protocol Linezolid (Zyvox 600mg/300ml D5w) 600 mg in 300 mls @ 200 mls/hr IVPB Q12 NESHA PRN Reason: Protocol Stop: 12/19/17 10:01 Last Admin: 12/14/17 22:30 Dose: 200 mls/hr Iron Sucrose 200 mg/ Sodium (Chloride) 110 mls @ 110 mls/hr IVPB DAILY [facility] Stop: 12/16/17 10:59 Last Admin: 12/14/17 10:00 Dose: 110 mls/hr Metoprolol Tartrate (Lopressor) 50 mg PO BID NESHA PRN Reason: Protocol Last Admin: 12/14/17 17:52 Dose: 50 mg Metoprolol Tartrate (Lopressor) 25 mg PO BID NESHA PRN Reason: Protocol Last Admin: 12/14/17 17:51 Dose: 25 mg Sevelamer HCl (Renagel) 800 mg PO ACTID NESHA PRN Reason: Protocol Last Admin: 12/14/17 16:45 Dose: 800 mg Sodium Bicarbonate (Sodium Bicarbonate Tab) 650 mg PO TID NESHA PRN Reason: Protocol Last Admin: 12/14/17 17:50 Dose: 650 mg - Labs Labs: 12/13/17 07:00 12/13/17 07:00 - Constitutional Appears: Non-toxic, Chronically Ill - Head Exam Head Exam: NORMAL INSPECTION - Respiratory Exam Respiratory Exam: Decreased Breath Sounds - Cardiovascular Exam Cardiovascular Exam: +S1, +S2 - GI/Abdominal Exam GI & Abdominal Exam: Soft. absent: Tenderness Assessment and Plan - Assessment and Plan (Free Text) Plan: Assessment S/P right middle lobe pneumonia, clinically improved and S/P treatment cystitis with right sided hydronephrosis; E. faecium found in the urine, sensitive to Ampicillin and Vancomycin Enterococcus urinary tract infection Diarrhea R/O pseudomembranous colitis severe sepsis secondary to Morganella urinary tract infection, clinically improved history of Clostridium difficile diarrhea DM HTN CAD Atrial fibrillation History of vertebral osteomyelitis Plan S/P 7 days of Meropenem and Doxycycline continue Zyvox day 4 for the E. faecium in the urine; repeat urine cx is now clear of bacteria - can complete 7 days of Zyvox (Day 4 today) follow up further plans of Urology
--- NOTE | 2017-12-15 13:06 | PN ---
DATE: SUBJECTIVE: This is a 67-year-old male on the Transitional Care Unit, receiving antibiotic therapy for pneumonia, cystitis, urinary tract infection. PHYSICAL EXAMINATION GENERAL: He is alert and oriented x3. VITAL SIGNS: The patient has a temperature of 98, his pulse is 51, his blood pressure is 110/77, his oxygen saturation is 98% on room air. The patient states that he has had several loose bowel movements yesterday. HEART: In S1, S2 rhythm. LUNGS: Clear. ABDOMEN: Obese, soft. Positive bowel sounds with abdominal wall hernia present. EXTREMITIES: Show no evidence of edema. LABORATORY DATA: Shows WBC 6.2, RBC 3.31, hemoglobin 9.8, hematocrit 30.5, platelet count 148,000. Chemistry shows a sodium of 144, potassium 4.4, chloride 115, CO2 19, BUN is 61, and creatinine is 4.2. Magnesium is 1.5, phosphorous is 4.1, calcium is 8.8, and his albumin is 3.1. MEDICATIONS: Currently, the patient is on Drisdol, iron sucrose supplementation, Lopressor, Norvasc, Renagel, sodium bicarbonate, Tylenol, and Zyvox. He has a history of; 1. Right hydronephrosis with renal stones and a neurogenic bladder, self-catheterization. 2. Non-insulin dependent diabetes. 3. Hypertension. 4. Coronary artery disease. 5. Chronic kidney disease. 6. Peripheral vascular disease. 7. Remote history of bleeding of colon fistula. PLAN: We will check stool for Clostridium difficile. I have spoken to the staff regarding the history recently with the loose stools. Continue his occupational and physical therapy and continue his care as per Renal and Infectious Disease. Ana Frost MD
[2017-12-15] MEDS: Magnesium Oxide 400 mg Tab UD PO SCH (17:41)
--- NOTE | 2017-12-15 19:15 | PN ---
DATE: 12/15/2017 SUBJECTIVE: Patient is seen walking in the hallway. He is awake, he is alert, he is comfortable. He denies any pain. He denies any shortness of breath. PHYSICAL EXAMINATION: GENERAL: Elderly male lying in bed. VITAL SIGNS: Blood pressure 146/91, heart rate 86, respiratory rate 18, temperature 98. HEENT: Normocephalic, atraumatic, positive pallor. NECK: Supple, no JVD. LUNGS: Bilateral equal air entry, bilateral equal expansion, no rales. CARDIAC: S1, S2. Regular rate and rhythm. No murmur, no rub. ABDOMEN: Obese, distended, soft, nontender, bowel sounds present. EXTREMITIES: No lower extremity edema. INTAKE AND OUTPUT: Not charted. LABORATORY DATA: WBC 6, hemoglobin 9.8, hematocrit 30.5, platelets 148. Sodium 144, potassium 4.4, chloride 115, CO2 of 19, BUN 61, creatinine 4.2, glucose 89, calcium 8.8, phosphorus 4.1, magnesium 1.5, albumin 3.1. CURRENT MEDICATIONS: Drisdol, iron 200 mg daily, Lopressor 50 b.i.d., amlodipine 5, Renagel, sodium bicarbonate 650 t.i.d., Tylenol, Zyvox. ASSESSMENT: 1. Hypomagnesemia. 2. Right-sided pyelonephritis/hydronephrosis/staghorn calculus/urinary tract infection. 3. Hypertension. 4. Noninsulin-dependent diabetes mellitus. 5. Chronic kidney disease, stage IV. 6. Anemia of chronic disease. PLAN: 1. Mag oxide 400 mg b.i.d. 2. Complete 1 g of Venofer. 3. Avoid nephrotoxins. 4. Complete course of antibiotics. 5. Stable renal function. Ana Ochoa MD
[2017-12-16 06:59] LABS: HEMOGLOBIN 10.6 g/dL (14.0-18.0); MEAN CELL VOLUME 92.5 fl (80.0-105.0); MEAN CORPUSCULAR HEMOGLOBIN 29.5 pg (25.0-35.0); MEAN CORPUSCULAR HGB CONC 31.9 g/dl (31.0-37.0); MEAN PLATELET VOLUME 9.4 fl (7.0-11.0); RBC 3.59 10^6/uL (3.5-6.1); RED CELL DISTRIBUTION WIDTH 14.2 % (11.5-14.5)
[2017-12-16 07:39] LABS: ALB/GLOB RATIO 0.8 (1.1-1.8); ALBUMIN 3.4 g/dL (3.0-4.8)
[2017-12-16] MEDS ORDERED: Ergocalciferol 50,000 Intl Units Cap PO SCH (10:00)
[2017-12-16] MEDS: Magnesium Oxide 400 mg Tab UD PO SCH ×2 (10:34→17:27)
--- NOTE | 2017-12-16 11:34 | CP.PCM.PN ---
Subjective - Date & Time of Evaluation Date of Evaluation: 12/16/17 Time of Evaluation: 10:15 - Subjective Subjective: Resting comfortably in bed, no fevers, not in distress. Objective - Vital Signs/Intake and Output Vital Signs (last 24 hours): Temp Pulse Resp BP Pulse Ox 98.2 F 60 18 145/70 97 12/15/17 17:49 12/15/17 17:49 12/15/17 17:49 12/15/17 17:49 12/15/17 17:49 - Medications Medications: Current Medications Acetaminophen (Tylenol 325mg Tab) 650 mg PO Q6H PRN; Protocol PRN Reason: Fever >100.4 F Amlodipine Besylate (Norvasc) 5 mg PO DAILY NESHA PRN Reason: Protocol Last Admin: 12/15/17 09:38 Dose: 5 mg Ergocalciferol (Drisdol 50,000 Intl Units Cap) 1 cap PO Q7D NESHA PRN Reason: Protocol Iron Sucrose 200 mg/ Sodium (Chloride) 110 mls @ 110 mls/hr IVPB DAILY N[facility]HA Stop: 12/16/17 10:59 Last Admin: 12/15/17 09:38 Dose: 110 mls/hr Linezolid (Zyvox) 600 mg PO BID NESHA PRN Reason: Protocol Last Admin: 12/15/17 17:42 Dose: 600 mg Magnesium Oxide (Mag-Ox) 400 mg PO BID [facility] Last Admin: 12/15/17 17:41 Dose: 400 mg Metoprolol Tartrate (Lopressor) 50 mg PO BID NESHA PRN Reason: Protocol Last Admin: 12/15/17 17:40 Dose: 50 mg Metoprolol Tartrate (Lopressor) 25 mg PO BID NESHA PRN Reason: Protocol Last Admin: 12/15/17 17:41 Dose: 25 mg Sevelamer HCl (Renagel) 800 mg PO ACTID NESHA PRN Reason: Protocol Last Admin: 12/15/17 17:40 Dose: 800 mg Sodium Bicarbonate (Sodium Bicarbonate Tab) 650 mg PO TID NESHA PRN Reason: Protocol Last Admin: 12/15/17 17:40 Dose: 650 mg - Labs Labs: 12/16/17 06:30 12/16/17 06:30 - Constitutional Appears: Non-toxic, Chronically Ill - Head Exam Head Exam: NORMAL INSPECTION - Respiratory Exam Respiratory Exam: Decreased Breath Sounds - Cardiovascular Exam Cardiovascular Exam: +S1, +S2 - GI/Abdominal Exam GI & Abdominal Exam: Soft. absent: Tenderness Assessment and Plan - Assessment and Plan (Free Text) Plan: Assessment S/P right middle lobe pneumonia, clinically improved and S/P treatment cystitis with right sided hydronephrosis; E. faecium found in the urine, sensitive to Ampicillin and Vancomycin Enterococcus urinary tract infection Diarrhea R/O pseudomembranous colitis severe sepsis secondary to Morganella urinary tract infection, clinically improved history of Clostridium difficile diarrhea DM HTN CAD Atrial fibrillation History of vertebral osteomyelitis Plan S/P 7 days of Meropenem and Doxycycline continue Zyvox day 5 for the E. faecium in the urine; repeat urine cx is now clear of bacteria - should complete 7 days of Zyvox (Day 5 today) follow up further recommendations of Urology
--- NOTE | 2017-12-16 12:44 | PN ---
DATE: SUBJECTIVE: A 67-year-old male on transitional care unit. Patient is receiving antibiotic therapy, recently treated for pneumonia, urinary tract infection, cystitis with right hydronephrosis and renal stones. He is currently having loose watery stools. Specimen for C. diff is pending. OBJECTIVE: VITAL SIGNS: His temperature is 98.2, his blood pressure is 145/70, his respiratory rate is 18, his pulse is 60. GENERAL: He is alert and oriented x3. NECK: Supple. LUNGS: Clear. HEART: S1 and S2, rhythm. ABDOMEN: Soft with positive bowel sounds. There is an abdominal hernia present. EXTREMITIES: Show no evidence of edema. LABORATORY DATA: Shows WBC of 7, RBC 3.59, hemoglobin 10.6, hematocrit 33.2, platelet count 157,000. Chemistry shows a sodium of 145, potassium 4.6, chloride 113, CO2 is 18. BUN of 63 and creatinine of 4.5. LFTs are normal. ASSESSMENT AND PLAN: Currently, the patient is on Zyvox in regard to the patient's urinary tract infection. He is receiving iron sucrose by Nephrology along with his blood pressure medications and his renal supplemental medications and bicarbonate. He is on Zyvox 600 mg p.o. b.i.d. by Infectious Disease. In the setting of the loose watery stools and recent treatment with antibiotics, must consider the concern for Clostridium difficile, his stool is ordered and pending. We will get a GI consult. Ana Frost MD
--- NOTE | 2017-12-16 13:25 | PN ---
DATE: SUBJECTIVE: The patient is currently seen lying supine in bed. He is entirely comfortable in the TCU. He is currently on oral antibiotic therapy and is anticipating a discharge in the next 24 to 48 hours. He was treated for urinary tract infection and right middle lobe pneumonia. MEDICATIONS: Medication list reviewed. The patient is on p.o. Zyvox, ergocalciferol, Lopressor, magnesium oxide, Norvasc, Renagel, sodium bicarbonate tablets, and Tylenol p.r.n. OBJECTIVE VITAL SIGNS: Blood pressure 117/76, temperature 97.6, respiratory rate 18 with a pulse of 71, pulse ox of 99%. HEENT: Exam shows him to be normocephalic, atraumatic. Conjunctivae are pale. Sclerae nonicteric. NECK: Supple. No neck vein distention. CHEST: Clear to auscultation and percussion. No rales, rhonchi, or wheezing. CARDIOVASCULAR: Shows a regular rate and rhythm with a soft systolic murmur, left lower sternal border. No S3. No S4. No rub. The patient has a pacemaker in place. ABDOMEN: Soft. Bowel sounds normal. No rebound or guarding. He has a large left lower quadrant nonreducible abdominal wall hernia in the area of previous scars. EXTREMITIES: Show no lower extremity cyanosis, clubbing or edema. He has diminished lower extremity pulses bilaterally. LABORATORY DATA AND IMAGING: CBC today, white blood cell count 7.0, hemoglobin stable at 10.6, platelet count is 157,000. Chemistry showed sodium 145, potassium 4.6, chloride of 118 with a CO2 of 18, anion gap is 18 secondary to his renal failure. BUN 63 with a creatinine of 4.5, which has trended slightly higher. Glucose is 100. Calcium is 9.0. Phosphorus level was 4.1. Magnesium level was 1.5 and the patient did receive magnesium supplements. Liver enzymes are normal. Albumin is 3.4. In-hospital urine cultures were positive for Enterococcus. Outpatient urine cultures were positive for E-coli, resistant to oral antibiotics. Blood cultures were negative. ASSESSMENT 1. Status post acute renal failure superimposed on chronic kidney disease stage IV. The patient is at the uppermost range of his baseline levels with a creatinine of 4.5. He does have metabolic acidosis and continues on oral sodium bicarbonate therapy. 2. History of Escherichia coli urinary tract infection, history of Enterococcus urinary tract infection, history of right middle lobe pneumonia. The patient will continue oral antibiotic therapy. 3. History of recurrent urinary tract infections, neurogenic bladder and a large right kidney staghorn calculus with right-sided hydro. The patient is willing to see Dr. Sotelo in the outpatient setting to discuss possible right percutaneous nephrostomy with breakup of the large right staghorn calculus. This will hopefully lessen his frequency of urinary tract infections. 4. History of secondary hyperparathyroidism, vitamin D deficiency. The patient will continue binder therapy, renal diet and vitamin D therapy. 5. History of anemia. Hemoglobin is stable and improved to 10.6. The patient is completing his course of IV Venofer. He did receive Aranesp 60 mcg on 12/09/2017. 6. History of hypertension. Blood pressure control is acceptable on current medication. The patient will continue amlodipine along with beta-gino therapy. 7. History of [id number]-cuaykiuyi diabetes mellitus, sugar control is acceptable. 8. History of peripheral vascular disease, status post multiple lower extremity foot surgeries. This appears to be stable. 9. History of paraspinal abscess with history of diverticulosis, colectomy, colostomy, reversal of colostomy, all appeared to be stable. The patient has a resolving left lower quadrant abdominal wall hernia, which is reducible. This is being managed medically. 10. History of atherosclerotic heart disease with mild valvular heart disease, history of a permanent pacemaker for bradycardia. This is followed by Cardiology and all appears to be stable. PLAN 1. Agree with completion of oral antibiotic therapy for his pneumonia and urinary tract infection. 2. The patient will make an appointment to see Dr. Sotelo next week in the outpatient setting to discuss possible right percutaneous nephrostomy with breakup of the large right kidney staghorn calculus. 3. Continue oral sodium bicarbonate therapy. 4. I favor not giving him magnesium oxide upon discharge given his advanced chronic kidney disease. We should complete the course of magnesium oxide when he leaves the hospital, that should be his last dose. 5. Continue renal diet, vitamin D and binder therapy. 6. Continue rehabilitation in the TCU. Bryan Vail MD [facility] # [id number]
--- NOTE | 2017-12-16 18:16 | CP.PCM.CON ---
History of Present Illness - History of Present Illness History of Present Illness: Seen and examined in TCU earlier today, chart reviewed. Request for GI consult is for diarrhea. HPI: This is a 67-year-old male with a past medical history of coronary artery disease, peripheral vascular disease, neurogenic bladder, Vesiclecolic fistula , Status post repair was admitted for Complaints of hematuria for almost a week and having abdominal pain. Patient denied fever or chills at the time he was found to have a right lower pole nonobstructing calculi and mild right hydronephrosis , innumerable calculi within the right renal pelvis and proximal right ureter. He received antibiotic therapy and was transferred to TCU for further antibiotics. He completed his course. The patient reported having diarrhea 2 days, patientvDenies large amount of loose stool, he has intermittent gas with "squirts" of stool as per patient. Denies any bleeding, Denies nausea, vomiting, or abdominal pain. Patient has no other specific complaints. He was eating lunch, reports good appetite. Past medical history: Diabetes mellitus, coronary artery disease vesiculo-colic fistula, chronic kidney disease, hypertension, urosepsis, peripheral vascular disease, neurogenic bladder, coronary artery disease status post angioplasty, Ventral hernia, Cdiff colitis Past surgical history: Pacemaker,Angioplasty 10/2015 reversal of colostomy, toe amputations Social history: consumes alcohol socially, history of smoking in the past, denies use of illicit drugs Family history: Noncontributory at this time Allergies: Ceftriaxone Medications: Reviewed as per MAR ROS: Systems reviewed. Positive findings see HPI Past Patient History - Infectious Disease Hx of Infectious Diseases: None - Tetanus Immunizations Tetanus Immunization: Unknown - Past Social History Smoking Status: Former Smoker - CARDIAC Hx Cardiac Disorders: Yes (CAD, Afib) Hx Hypertension: Yes - PULMONARY Hx Chronic Obstructive Pulmonary Disease (COPD): Yes - NEUROLOGICAL HX Cerebrovascular Accident: Yes - HEENT Hx HEENT Problems: Yes (wears glasses) - RENAL Hx Renal Failure: Yes - ENDOCRINE/METABOLIC Hx Diabetes Mellitus Type 2: Yes - HEMATOLOGICAL/ONCOLOGICAL Hx Blood Disorders: Yes (clumping platlets) - INTEGUMENTARY Hx Dermatological Problems: Yes - MUSCULOSKELETAL/RHEUMATOLOGICAL Hx Falls: Yes - GASTROINTESTINAL Hx Gastrointestinal Disorders: Yes (ANAL FISTULA,COLOSTOMY WITH REVERSAL, HERNIA ,DIVERTICULITIS) - GENITOURINARY/GYNECOLOGICAL Hx Genitourinary Disorders: Yes (AUCTE CYSTITIS,HEMATURIA UTI) Hx Reproductive Disorders: No - PSYCHIATRIC Hx Psychophysiologic Disorder: No Hx Depression: No Hx Emotional Abuse: No Hx Physical Abuse: No Hx Substance Use: No - SURGICAL HISTORY Hx Amputation: Yes (all toes left foot, rt great toe) Hx Cardiac Catheterization: Yes Hx Coronary Stent: Yes - ANESTHESIA Hx Anesthesia Reactions: No Hx Malignant Hyperthermia: No Meds Allergies/Adverse Reactions: Allergies Allergy/AdvReac Type Severity Reaction Status Date / Time ceftriaxone sodium Allergy ITCHING Verified 12/10/17 20:02 [From Rocephin] - Medications Medications: Current Medications Acetaminophen (Tylenol 325mg Tab) 650 mg PO Q6H PRN; Protocol PRN Reason: Fever >100.4 F Amlodipine Besylate (Norvasc) 5 mg PO DAILY NESHA PRN Reason: Protocol Last Admin: 12/16/17 10:35 Dose: 5 mg Ergocalciferol (Drisdol 50,000 Intl Units Cap) 1 cap PO Q7D NESHA PRN Reason: Protocol Last Admin: 12/16/17 10:34 Dose: 1 cap Linezolid (Zyvox) 600 mg PO BID NESHA PRN Reason: Protocol Last Admin: 12/16/17 17:26 Dose: 600 mg Magnesium Oxide (Mag-Ox) 400 mg PO BID NESHA Last Admin: 12/16/17 17:27 Dose: 400 mg Metoprolol Tartrate (Lopressor) 50 mg PO BID NESHA PRN Reason: Protocol Last Admin: 12/16/17 17:27 Dose: 50 mg Metoprolol Tartrate (Lopressor) 25 mg PO BID NESHA PRN Reason: Protocol Last Admin: 12/16/17 17:27 Dose: 25 mg Sevelamer HCl (Renagel) 800 mg PO ACTID NESHA PRN Reason: Protocol Last Admin: 12/16/17 17:27 Dose: 800 mg Sodium Bicarbonate (Sodium Bicarbonate Tab) 650 mg PO TID NESHA PRN Reason: Protocol Last Admin: 12/16/17 17:26 Dose: 650 mg Physical Exam - Constitutional Appears: No Acute Distress - Head Exam Head Exam: NORMOCEPHALIC - Eye Exam Eye Exam: Normal appearance. absent: Scleral icterus - ENT Exam ENT Exam: Mucous Membranes Moist - Neck Exam Neck exam: Positive for: Normal Inspection - Respiratory Exam Respiratory Exam: NORMAL BREATHING PATTERN. absent: Respiratory Distress - Cardiovascular Exam Cardiovascular Exam: +S1, +S2 - GI/Abdominal Exam GI & Abdominal Exam: Hernia, Normal Bowel Sounds, Soft. absent: Guarding, Rebound, Tenderness Additional comments: large ventral hernia, nontender - Extremities Exam Extremities exam: Negative for: calf tenderness - Neurological Exam Neurological exam: Alert, Oriented x3 - Skin Skin Exam: Dry, Warm Results - Vital Signs Recent Vital Signs: Last Vital Signs Temp 97.9 F 12/16/17 17:37 Pulse 51 L 12/16/17 17:37 Resp 14 12/16/17 17:37 BP 127/72 12/16/17 17:37 Pulse Ox 100 12/16/17 17:37 - Labs Result Diagrams: 12/16/17 06:30 12/16/17 06:30 Labs: Laboratory Results - last 24 hr 12/15/17 12/16/17 12/16/17 21:14 05:02 06:30 WBC 7.0 RBC 3.59 Hgb 10.6 L Hct 33.2 L MCV 92.5 MCH 29.5 MCHC 31.9 RDW 14.2 Plt Count 157 MPV 9.4 Sodium Potassium Chloride Carbon Dioxide Anion Gap BUN Creatinine Est GFR ( Amer) Est GFR (Non-Af Amer) POC Glucose (mg/dL) 79 79 Random Glucose Calcium Total Bilirubin AST ALT Alkaline Phosphatase Total Protein Albumin Globulin Albumin/Globulin Ratio 12/16/17 12/16/17 12/16/17 06:30 11:14 16:34 WBC RBC Hgb Hct MCV MCH MCHC RDW Plt Count MPV Sodium 145 Potassium 4.6 Chloride 113 H Carbon Dioxide 18 L Anion Gap 18 BUN 63 H Creatinine 4.5 H Est GFR ( Amer) 16 Est GFR (Non-Af Amer) 13 POC Glucose (mg/dL) 96 89 Random Glucose 100 Calcium 9.0 Total Bilirubin 0.4 AST 23 ALT 24 Alkaline Phosphatase 84 Total Protein 7.6 Albumin 3.4 Globulin 4.2 Albumin/Globulin Ratio 0.8 L Assessment & Plan - Assessment and Plan (Free Text) Assessment: Assessment: Diarrhea, rule out C. difficile, on antibiotic therapy Renal stones with right hydronephrosis UTI status post antibiotic treatment History of vesicularCole O fistula, status post colostomy reversal Pacemaker Hypertension Chronic kidney disease Plan: Follow up stool for C. difficile Give probiotic On oral Zyvox Diet as tolerated Monitor I&O and electrolytes As per urology and ID Thank you for this consult and for allowing us to participate in your patient's care, further recommendations based upon clinical course. Seen and discussed with Dr. Veliz.
[2017-12-16] MEDS: Lactobacillus Acidophilus 500 MU Cap PO SCH (18:40)
[2017-12-17 07:11] LABS: HEMOGLOBIN 9.8 g/dL (14.0-18.0); MEAN CELL VOLUME 92.4 fl (80.0-105.0); MEAN CORPUSCULAR HEMOGLOBIN 29.6 pg (25.0-35.0); MEAN PLATELET VOLUME 9.4 fl (7.0-11.0); RBC 3.31 10^6/uL (3.5-6.1); RED CELL DISTRIBUTION WIDTH 14.1 % (11.5-14.5); WHITE BLOOD COUNT 6.4 10^3/ul (4.5-11.0)
[2017-12-17 07:40] LABS: ALB/GLOB RATIO 0.8 (1.1-1.8); CALCIUM 8.3 mg/dL (8.4-10.5); MAGNESIUM 1.7 mg/dL (1.7-2.2)
[2017-12-17] MEDS: Lactobacillus Acidophilus 500 MU Cap PO SCH ×2 (10:36→17:04)
[2017-12-17] MEDS: Magnesium Oxide 400 mg Tab UD PO SCH ×2 (10:38→17:04)
--- NOTE | 2017-12-17 15:06 | PN ---
DATE: SUBJECTIVE: A 67-year-old male on the transitional care unit. Patient is receiving and completing a course of antibiotics for pulmonary pneumonia, cystitis with right hydronephrosis and renal stones, urinary tract infection. OBJECTIVE: VITAL SIGNS: Show a temperature of 97.9, his pulse is 51, his blood pressure is 127/72, his oxygen sat is 100% on room air. NECK: Supple. LUNGS: Clear. HEART: S1, S2 rhythm. ABDOMEN: Soft. There is a hernia in the abdominal wall. EXTREMITIES: Show no evidence of edema. LABORATORY DATA: Shows a sodium of 143, potassium 4.5, chloride 114, CO2 is 18. BUN is 63, the creatinine is 4.4. LFTs are normal. His glucose is 99. CBC shows a WBC of 6.4, RBC of 3.31, hemoglobin 9.8, hematocrit 30.6, and platelet count 124. The patient is currently receiving his Bacid for loose bowel movements that he have with negative C. diff. He is on vitamin D, Lopressor, magnesium, Norvasc, Renagel, sodium bicarbonate for his renal disease. He is on Zyvox for his urinary tract infection. We will continue his occupational and physical therapy, continue his antibiotics. He is being followed by Renal, GI, and Infectious Disease. We will continue current level of care and await final recommendations by the individual consultants. The patient fully understands all his medical issues. Ana Frost MD
--- NOTE | 2017-12-17 16:23 | CP.PCM.PN ---
Subjective - Date & Time of Evaluation Date of Evaluation: 12/17/17 Time of Evaluation: 10:55 - Subjective Subjective: Comfortable, no fevers, not in distress, doing well with his physical therapy. Objective - Vital Signs/Intake and Output Vital Signs (last 24 hours): Temp Pulse Resp BP Pulse Ox 97.9 F 51 L 14 127/72 100 12/16/17 17:37 12/16/17 17:37 12/16/17 17:37 12/16/17 17:37 12/16/17 17:37 - Medications Medications: Current Medications Acetaminophen (Tylenol 325mg Tab) 650 mg PO Q6H PRN; Protocol PRN Reason: Fever >100.4 F Amlodipine Besylate (Norvasc) 5 mg PO DAILY NESHA PRN Reason: Protocol Last Admin: 12/16/17 10:35 Dose: 5 mg Ergocalciferol (Drisdol 50,000 Intl Units Cap) 1 cap PO Q7D NESHA PRN Reason: Protocol Last Admin: 12/16/17 10:34 Dose: 1 cap Lactobacillus Acidophilus (Bacid Acidophilus) 1 cap PO BID NESHA Last Admin: 12/16/17 18:40 Dose: 1 cap Linezolid (Zyvox) 600 mg PO BID NESHA PRN Reason: Protocol Last Admin: 12/16/17 17:26 Dose: 600 mg Magnesium Oxide (Mag-Ox) 400 mg PO BID [facility] Last Admin: 12/16/17 17:27 Dose: 400 mg Metoprolol Tartrate (Lopressor) 50 mg PO BID NESHA PRN Reason: Protocol Last Admin: 12/16/17 17:27 Dose: 50 mg Metoprolol Tartrate (Lopressor) 25 mg PO BID NESHA PRN Reason: Protocol Last Admin: 12/16/17 17:27 Dose: 25 mg Sevelamer HCl (Renagel) 800 mg PO ACTID NESHA PRN Reason: Protocol Last Admin: 12/17/17 08:02 Dose: 800 mg Sodium Bicarbonate (Sodium Bicarbonate Tab) 650 mg PO TID NESHA PRN Reason: Protocol Last Admin: 12/16/17 17:26 Dose: 650 mg - Labs Labs: 12/17/17 06:30 12/17/17 06:30 - Constitutional Appears: Non-toxic, Chronically Ill - Head Exam Head Exam: NORMAL INSPECTION - ENT Exam ENT Exam: Mucous Membranes Moist - Neck Exam Neck Exam: absent: Meningismus - Respiratory Exam Respiratory Exam: Decreased Breath Sounds - Cardiovascular Exam Cardiovascular Exam: +S1, +S2 - GI/Abdominal Exam GI & Abdominal Exam: Soft. absent: Tenderness Assessment and Plan - Assessment and Plan (Free Text) Plan: Assessment S/P right middle lobe pneumonia, clinically improved and S/P treatment cystitis with right sided hydronephrosis; E. faecium found in the urine, sensitive to Ampicillin and Vancomycin Enterococcus urinary tract infection Diarrhea R/O pseudomembranous colitis severe sepsis secondary to Morganella urinary tract infection, clinically improved history of Clostridium difficile diarrhea DM HTN CAD Atrial fibrillation History of vertebral osteomyelitis Plan S/P 7 days of Meropenem and Doxycycline continue Zyvox day 5 for the E. faecium in the urine; repeat urine cx is now clear of bacteria - should complete 7 days of Zyvox (Day 6 today) follow up further recommendations of Urology
--- NOTE | 2017-12-17 21:52 | PN ---
DATE: 12/17/2017 SUBJECTIVE: Patient is seen walking in the hallway. He is awake, he is alert, he is comfortable. He denies any pain. Denies any shortness of breath. Denies any discomfort. PHYSICAL EXAMINATION: GENERAL: Elderly male walking in the hallway. VITAL SIGNS: Blood pressure 129/83, heart rate 83, respiratory rate 20, temperature 97.7. LUNGS: Bilateral equal air entry, no rales. EXTREMITIES: No lower extremity edema. LABORATORY DATA: WBC 6.4, hemoglobin 9.8, hematocrit 30.6, platelets 124. Sodium 143, potassium 4.5, chloride 114, CO2 of 18, BUN 63, creatinine 4.4, glucose 99, calcium 8.3, phosphorus 4.1 magnesium 1.7. MEDICATIONS. List reviewed. ASSESSMENT: 1. Stable chronic kidney disease, stage IV. 2. Right pyelonephritis/right hydronephrosis/right staghorn calculus/urinary tract infection, resolving. 3. Anemia of chronic kidney disease. 4. Metabolic acidosis. 5. Secondary hyperparathyroidism. 6. Noninsulin-dependent diabetes mellitus. 7. Hypertension. 8. Peripheral vascular disease. PLAN: 1. Complete antibiotic course. 2. Perhaps outpatient percutaneous nephrostomy and lithotripsy of the large right staghorn calculus. 3. Continue bicarbonate. 4. Continue physical therapy. Ana Ochoa MD
[2017-12-18 06:49] VITALS: RESP 16; TEMP 98; O2SAT 95
[2017-12-18] MEDS: Magnesium Oxide 400 mg Tab UD PO SCH (10:11)
[2017-12-18] MEDS: Lactobacillus Acidophilus 500 MU Cap PO SCH (10:11)
[2017-12-18 10:16] VITALS: BP 114/75; PULSE 71
--- NOTE | 2017-12-18 11:07 | CP.PCM.PN ---
Subjective - Date & Time of Evaluation Date of Evaluation: 12/18/17 Time of Evaluation: 10:00 - Subjective Subjective: Complaining of some loss bowel movement, no fevers, no dysuria. Objective - Vital Signs/Intake and Output Vital Signs (last 24 hours): Temp Pulse Resp BP Pulse Ox 98 F 71 16 114/75 95 12/18/17 06:00 12/18/17 10:10 12/18/17 06:00 12/18/17 10:10 12/18/17 06:00 - Medications Medications: Current Medications Acetaminophen (Tylenol 325mg Tab) 650 mg PO Q6H PRN; Protocol PRN Reason: Fever >100.4 F Amlodipine Besylate (Norvasc) 5 mg PO DAILY NESHA PRN Reason: Protocol Last Admin: 12/18/17 10:11 Dose: 5 mg Ergocalciferol (Drisdol 50,000 Intl Units Cap) 1 cap PO Q7D NESHA PRN Reason: Protocol Last Admin: 12/16/17 10:34 Dose: 1 cap Lactobacillus Acidophilus (Bacid Acidophilus) 1 cap PO BID NESHA Last Admin: 12/18/17 10:11 Dose: 1 cap Linezolid (Zyvox) 600 mg PO BID NESHA PRN Reason: Protocol Last Admin: 12/18/17 10:11 Dose: 600 mg Magnesium Oxide (Mag-Ox) 400 mg PO BID NESHA Last Admin: 12/18/17 10:11 Dose: 400 mg Metoprolol Tartrate (Lopressor) 50 mg PO BID NESHA PRN Reason: Protocol Last Admin: 12/18/17 10:11 Dose: 50 mg Metoprolol Tartrate (Lopressor) 25 mg PO BID NESHA PRN Reason: Protocol Last Admin: 12/18/17 10:10 Dose: 25 mg Sevelamer HCl (Renagel) 800 mg PO ACTID NESHA PRN Reason: Protocol Last Admin: 12/18/17 08:14 Dose: 800 mg Sodium Bicarbonate (Sodium Bicarbonate Tab) 650 mg PO TID NESHA PRN Reason: Protocol Last Admin: 12/18/17 10:11 Dose: 650 mg - Labs Labs: 12/17/17 06:30 12/17/17 06:30 - Constitutional Appears: Non-toxic, Chronically Ill - Head Exam Head Exam: NORMAL INSPECTION - ENT Exam ENT Exam: Mucous Membranes Moist - Neck Exam Neck Exam: absent: Meningismus - Respiratory Exam Respiratory Exam: Decreased Breath Sounds - Cardiovascular Exam Cardiovascular Exam: +S1, +S2 - GI/Abdominal Exam GI & Abdominal Exam: Soft. absent: Tenderness Assessment and Plan - Assessment and Plan (Free Text) Plan: Assessment S/P right middle lobe pneumonia, clinically improved and S/P treatment cystitis with right sided hydronephrosis; E. faecium found in the urine, sensitive to Ampicillin and Vancomycin Enterococcus urinary tract infection Diarrhea R/O pseudomembranous colitis severe sepsis secondary to Morganella urinary tract infection, clinically improved history of Clostridium difficile diarrhea DM HTN CAD Atrial fibrillation History of vertebral osteomyelitis Plan S/P 7 days of Meropenem and Doxycycline on Zyvox day 7 for the E. faecium in the urine; repeat urine cx is now clear of bacteria - should complete 7 days of Zyvox (Day 7 today) - can d/c today follow up further recommendations of Urology, as outpatient
--- NOTE | 2017-12-18 15:33 | CP.PCM.PN ---
Subjective - Date & Time of Evaluation Date of Evaluation: 12/18/17 Time of Evaluation: 10:45 - Subjective Subjective: Seen and examined at the bedside earlier today,remains to have loose BMs, a little more frequent, no reports of bleeding, denies nausea, vomiting, or abdominal pain. Tolerating oral intake. No other new complaints. Stool for C. difficile negative. Objective - Vital Signs/Intake and Output Vital Signs (last 24 hours): Temp Pulse Resp BP Pulse Ox 98 F 71 16 114/75 95 12/18/17 06:00 12/18/17 10:10 12/18/17 06:00 12/18/17 10:10 12/18/17 06:00 - Medications Medications: Current Medications Acetaminophen (Tylenol 325mg Tab) 650 mg PO Q6H PRN; Protocol PRN Reason: Fever >100.4 F Amlodipine Besylate (Norvasc) 5 mg PO DAILY NESHA PRN Reason: Protocol Last Admin: 12/18/17 10:11 Dose: 5 mg Ergocalciferol (Drisdol 50,000 Intl Units Cap) 1 cap PO Q7D NESHA PRN Reason: Protocol Last Admin: 12/16/17 10:34 Dose: 1 cap Lactobacillus Acidophilus (Bacid Acidophilus) 1 cap PO BID NESHA Last Admin: 12/18/17 10:11 Dose: 1 cap Linezolid (Zyvox) 600 mg PO BID NESHA PRN Reason: Protocol Last Admin: 12/18/17 14:44 Dose: 600 mg Magnesium Oxide (Mag-Ox) 400 mg PO BID [facility] Last Admin: 12/18/17 10:11 Dose: 400 mg Metoprolol Tartrate (Lopressor) 50 mg PO BID NESHA PRN Reason: Protocol Last Admin: 12/18/17 10:11 Dose: 50 mg Metoprolol Tartrate (Lopressor) 25 mg PO BID NESHA PRN Reason: Protocol Last Admin: 12/18/17 10:10 Dose: 25 mg Sevelamer HCl (Renagel) 800 mg PO ACTID NESHA PRN Reason: Protocol Last Admin: 12/18/17 13:46 Dose: 800 mg Sodium Bicarbonate (Sodium Bicarbonate Tab) 650 mg PO TID NESHA PRN Reason: Protocol Last Admin: 12/18/17 14:43 Dose: 650 mg - Labs Labs: 12/17/17 06:30 12/17/17 06:30 - Constitutional Appears: No Acute Distress - Head Exam Head Exam: NORMOCEPHALIC - Eye Exam Eye Exam: Normal appearance. absent: Scleral icterus - ENT Exam ENT Exam: Mucous Membranes Moist - Neck Exam Neck Exam: Normal Inspection - Respiratory Exam Respiratory Exam: NORMAL BREATHING PATTERN. absent: Respiratory Distress - Cardiovascular Exam Cardiovascular Exam: +S1, +S2 - GI/Abdominal Exam GI & Abdominal Exam: Soft, Hernia, Normal Bowel Sounds. absent: Guarding, Tenderness, Rebound - Extremities Exam Extremities Exam: absent: Calf Tenderness, Pedal Edema - Neurological Exam Neurological Exam: Alert, Awake, Oriented x3 - Skin Skin Exam: Dry, Warm Assessment and Plan - Assessment and Plan (Free Text) Assessment: Assessment: Diarrhea, C. difficile negative, on antibiotic therapy Renal stones with right hydronephrosis UTI status post antibiotic treatment History of vesicularColofistula, status post colostomy reversal Pacemaker Hypertension Chronic kidney disease Plan: continue probiotic On oral Zyvox Diet as tolerated Monitor I&O and electrolytes As per urology and ID plan is to DC home today, discuss w/ patient to continue Probiotics Seen and discussed with Dr. Veliz.
--- NOTE | 2017-12-18 20:01 | PN ---
DATE: 12/18/2017 SUBJECTIVE: Patient is seen sitting in chair. He is awake. He is alert. He is comfortable. He is eager to go home. PHYSICAL EXAMINATION: GENERAL: Elderly male, sitting in chair. VITAL SIGNS: Blood pressure 114/75, heart rate 71, respiratory rate 16, temperature 98. NECK: Supple, no JVD. LUNGS: Bilateral equal air entry, no rales. EXTREMITIES: No lower extremity edema. LABORATORY DATA: No new labs. MEDICATIONS: List reviewed. ASSESSMENT: 1. Stable chronic kidney disease, stage IV. 2. Anemia of chronic kidney disease. 3. Status post urinary tract infection/pyelonephritis/hydronephrosis/staghorn calculus of the right kidney. 4. Secondary hyperparathyroidism. 5. Non-insulin dependent diabetes mellitus. 6. Hypertension. Patient is stable at this time. His renal function is stable. No objection to discharge. Patient to follow up with Dr. Vail in the office. Ana Ochoa MD
--- NOTE | 2017-12-19 14:39 | DS ---
A 67-year-old male on the Transitional Care Unit. Patient is completing antibiotic therapy for pneumonia, right hydronephrosis with renal stones, cystitis, urinary tract infection. He has underlying chronic renal disease stage IV/V, coronary artery disease, renal angioplasty, hypomagnesemia, hypertension. He is currently on Zyvox 600 mg b.i.d. completing for his urinary tract infection. He will continue his sodium bicarbonate, Renagel, Norvasc, magnesium oxide, Lopressor, Drisdol and acidophilus. He will be on a renal diabetic diet at home to monitor his blood sugar. He has neurogenic bladder and self catheterizes at home. He was cleared by all the individual consultants of Infectious Disease, GI and Renal. Although he was having still some soft watery stool, it was felt that with negative Clostridium difficile study, he could go home, to be monitored as an outpatient. LABORATORY DATA: His WBC was 6.4, RBC 3.31, hemoglobin 9.8, hematocrit 30.6, platelet count 124,000. Chemistry shows sodium 143, potassium 4.5, chloride 114, CO2 of 18, BUN 66, creatinine of 4.4. His blood sugar was 84. LFTs were normal. Calcium was 8.3, albumin was 3.0. ASSESSMENT AND PLAN: To be followed as an outpatient. He is also going to see Urology as an outpatient. There was recommendation for an external nephrostomy to be placed for removal of his renal stones and then, possibly have a cystoscopy with stent placement. This would be discussed with his urologist, Dr. Sotelo, as an outpatient. Ana Frost MD
== END 2017-12-18 15:35 | disposition home or self-care (01) | DRG 689 ==
LOC: TRCU 15:52
PROVIDERS: ADMIT Internal Medicine; ATTEND Internal Medicine
PROC: F07Z9ZZ Gait Training/Functional Ambulation Treatment (ICD-10-PCS; principal; 2017-12-11)
PROC: F08Z4ZZ Home Management Treatment (ICD-10-PCS; 2017-12-11)
DX: N13.6 Pyonephrosis (principal); J18.9 Pneumonia, unspecified organism; E11.22 Type 2 diabetes mellitus with diabetic chronic kidney disease; E11.51 Type 2 diabetes mellitus with diabetic peripheral angiopathy without gangrene; N18.4 Chronic kidney disease, stage 4 (severe); E87.0 Hyperosmolality and hypernatremia; E87.2 Acidosis; I48.91 Unspecified atrial fibrillation; I25.10 Atherosclerotic heart disease of native coronary artery without angina pectoris; I12.9 Hypertensive chronic kidney disease with stage 1 through stage 4 chronic kidney disease, or unspecified chronic kidney disease; E86.0 Dehydration; Z79.2 Long term (current) use of antibiotics; N25.81 Secondary hyperparathyroidism of renal origin; E55.9 Vitamin D deficiency, unspecified; K43.9 Ventral hernia without obstruction or gangrene; E83.42 Hypomagnesemia; D63.1 Anemia in chronic kidney disease; N31.9 Neuromuscular dysfunction of bladder, unspecified; Z79.84 Long term (current) use of oral hypoglycemic drugs; Z95.0 Presence of cardiac pacemaker; Z89.411 Acquired absence of right great toe; Z95.5 Presence of coronary angioplasty implant and graft; Z89.422 Acquired absence of other left toe(s); Z89.412 Acquired absence of left great toe; Z87.891 Personal history of nicotine dependence

== ENCOUNTER 2018-03-12 08:45 | Inpatient (IN) | payer MEDICARE, BC ==
[2018-03-12 08:46] VITALS: PULSE 52
--- NOTE | 2018-03-12 09:14 | ED PDOC ---
Arrival/HPI - General Chief Complaint: GI Problem Time Seen by Provider: 03/12/18 08:52 Historian: Patient - History of Present Illness Narrative History of Present Illness (Text): 03/12/18 09:14 Patient is a 67 year old male whose past medical history includes pyelonephritis and renal stones, who presents to the Emergency department as instructed by his PMD for IV antibiotics. Patient reports that his urine culture was recently found to be positive. Patient is currently experiencing increased urinary frequency and dysuria. Patient sees his dry wall plasterer every 3 month. Patient denies any current episodes of hematuria but notes that he has experienced episodes in the past. Patient denies any abdominal pain, back pain, nausea, vomiting, diarrhea, headache, dizziness, or testicular pain. 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: Urologist: Symptom Onset: Sudden Symptom Course: Unchanged Context: Home Past Medical History - Provider Review Nursing Documentation Reviewed: Yes - Infectious Disease Hx of Infectious Diseases: None - Tetanus Immunization Tetanus Immunization: Unknown - Cardiac Hx Cardiac Disorders: Yes (CAD, Afib) Hx Atrial Fibrillation: Yes Hx Hypertension: Yes Hx Pacemaker: Yes - Pulmonary Hx Chronic Obstructive Pulmonary Disease (COPD): Yes - Neurological HX Cerebrovascular Accident: Yes - HEENT Hx HEENT Disorder: Yes (wears glasses) - Renal Hx Renal Failure: Yes - Endocrine/Metabolic Hx Diabetes Mellitus Type 2: Yes - Hematological/Oncological Hx Blood Disorders: Yes (clumping platlets) - Integumentary Hx Dermatological Disorder: Yes - Musculoskeletal/Rheumatological Hx Falls: Yes - Gastrointestinal Hx Gastrointestinal Disorders: Yes - Genitourinary/Gynecological Hx Urinary Tract Infection: Yes (recurrent) - Psychiatric Hx Psychophysiologic Disorder: No Hx Substance Use: No - Surgical History Hx Amputation: Yes (all toes left foot, rt great toe) Hx Cardiac Catheterization: Yes Hx Coronary Stent: Yes - Anesthesia Hx Anesthesia Reactions: No Hx Malignant Hyperthermia: No - Suicidal Assessment Feels Threatened In Home Enviroment: No Family/Social History - Physician Review Nursing Documentation Reviewed: Yes Family/Social History: No Known Family HX Smoking Status: Former Smoker Hx Alcohol Use: Yes (DRINKS BEER DAILY CURRENTLY) Hx Substance Use: No Hx Substance Use Treatment: No Allergies/Home Meds Allergies/Adverse Reactions: Allergies ceftriaxone sodium [From Rocephin] Allergy (Verified 03/12/18 09:05) ITCHING Home Medications: Home Meds Medication Instructions Recorded Confirmed Metoprolol Tartrate [Lopressor] 75 mg PO BID 07/11/16 03/12/18 Sevelamer [Renagel] 800 mg PO ACTID 09/18/16 03/12/18 amLODIPine [Norvasc] 5 mg PO DAILY 09/18/16 03/12/18 Review of Systems - Physician Review All systems were reviewed & negative as marked: Yes - Review of Systems Constitutional: absent: Fevers, Night Sweats Gastrointestinal: absent: Abdominal Pain, Diarrhea, Nausea, Vomiting Genitourinary Male: Dysuria, Frequency, Other ((-) Testicular pain). absent: Hematuria Musculoskeletal: absent: Back Pain Neurological: absent: Headache, Dizziness Physical Exam Vital Signs Temp Pulse Resp BP Pulse Ox 03/12/18 11:12 98.1 F 80 19 151/76 H 98 03/12/18 09:01 98 F 95 H 17 128/84 98 Temperature: Afebrile Blood Pressure: Normal Pulse: Regular Respiratory Rate: Normal Appearance: Positive for: Well-Appearing Mental Status: Positive for: Alert and Oriented X 3 - Systems Exam Head: Present: Atraumatic, Normocephalic Pupils: Present: PERRL Extroacular Muscles: Present: EOMI Conjunctiva: Present: Normal Mouth: Present: Moist Mucous Membranes Neck: Present: Normal Range of Motion Respiratory/Chest: Present: Clear to Auscultation, Good Air Exchange. No: Respiratory Distress, Accessory Muscle Use Cardiovascular: Present: Regular Rate and Rhythm, Normal S1, S2. No: Murmurs Abdomen: Present: Hernias (Reducible ventral hernia). No: Tenderness, Distention, Peritoneal Signs Back: Present: Normal Inspection, Other ((-) lower back tenderness). No: CVA Tenderness Upper Extremity: Present: Normal Inspection. No: Cyanosis, Edema Lower Extremity: Present: Normal Inspection. No: Edema Neurological: Present: GCS=15, CN II-XII Intact, Speech Normal Skin: Present: Warm, Dry, Normal Color. No: Rashes Psychiatric: Present: Alert, Oriented x 3, Normal Insight, Normal Concentration Medical Decision Making ED Course and Treatment: 03/12/18 09:24 Impression: Patient is a 67 year old male who presents to Emergency department for IV antibiotics as per instructions. Differential Diagnosis included but are not limited to: Pyelonephritis vs. Renal stones. Plan: --labs --urine culture and urinalysis --abdominal and pelvic CT without contrast -- Reassess and disposition Prior Visits: Notes and results from previous visits were reviewed. Patient was last seen in the emergency department on 12/06/17 for cystitis, pneumonia, and cutaneous candidiasis and was hospitalized Progress Notes: 03/12/18 CT Abdomen and Pelvis without intravenous contrast: Creator : Corbin Matos MD HISTORY: r/o kidney stone COMPARISON: 12/06/2017 CT IMPRESSION: Large stone or collection of stone fragments in the right renal pelvis with perinephric and periureteral stranding. Findings are unchanged. Chronic mural thickening in the bladder 03/12/18 10:36 Discussed case with (ID), who will order the IV antibiotics. Consult placed for for urology. Case discussed with to admit patient to his service. 03/12/18 12:24 - Lab Interpretations Lab Results: 03/12/18 09:30 03/12/18 09:30 Lab Results 03/12/18 09:30: Sodium 142, Potassium 5.1 H, Chloride 113 H, Carbon Dioxide 12 L , Anion Gap 21 H, BUN 75 H, Creatinine 5.2 H, Est GFR ( Amer) 13, Est GFR (Non-Af Amer) 11, Random Glucose 170 H, Calcium 8.3 L, Magnesium 1.7, Total Bilirubin 0.2, AST 16 L, ALT 23, Alkaline Phosphatase 106, Total Protein 8.2, Albumin 4.1, Globulin 4.0, Albumin/Globulin Ratio 1.0 L, Lipase 283 03/12/18 09:30: PT 13.0 H, INR 1.13 H, APTT 30.5 03/12/18 09:30: WBC 7.3, RBC 3.91, Hgb 12.1 L D, Hct 35.0 L, MCV 89.5, MCH 30.9 , MCHC 34.6, RDW 14.3, Plt Count 167, MPV 9.4, Gran % 78.2 H, Lymph % (Auto) 14.4 L, [place] % (Auto) 5.2, Eos % (Auto) 1.8, Baso % (Auto) 0.4, Gran # 5.68, Lymph # (Auto) 1.1 L, [place] # (Auto) 0.4, Eos # (Auto) 0.1, Baso # (Auto) 0.03 I have reviewed the lab results: Yes - RAD Interpretation Radiology Orders: 03/12/18 09:10 ABD & PELVIS W/O PO OR IV CONT [CT] Stat Cloth Winder: Radiologist - Medication Orders Current Medication Orders: Sodium Chloride (Sodium Chloride 0.9%) 1,000 mls @ 150 mls/hr IV .[id number] NESHA Last Admin: 03/12/18 11:11 Dose: 150 mls/hr eMAR Start Stop Document 03/12/18 11:11 [email or web address] (Rec: 03/12/18 11:11 [email or web address] [id number]) Intravenous Solution Start Date 03/12/18 Start Time 11:11 End Date 03/12/18 Meropenem 250 mg/ Sodium (Chloride) 100 mls @ 100 mls/hr IVPB Q12H [facility]HA PRN Reason: Protocol Stop: 03/21/18 11:16 Linezolid (Zyvox) 600 mg PO BID N[facility]HA PRN Reason: Protocol Stop: 03/21/18 11:17 - Scribe Statement The provider has reviewed the documentation as recorded by the Scribgautam Saucedo Provider Scribe Attestation: All medical record entries made by the Scribe were at my direction and personally dictated by me. I have reviewed the chart and agree that the record accurately reflects my personal performance of the history, physical exam, medical decision making, and the department course for this patient. I have also personally directed, reviewed, and agree with the discharge instructions and disposition. Disposition/Present on Arrival - Present on Arrival Any Indicators Present on Arrival: No History of DVT/PE: No History of Uncontrolled Diabetes: No Urinary Catheter: No History of Decub. Ulcer: No History Surgical Site Infection Following: None - Disposition Have Diagnosis and Disposition been Completed?: Yes Diagnosis: UTI (urinary tract infection), Kidney stones Disposition: HOSPITALIZED Disposition Time: 10:16 Patient Plan: Admission Condition: FAIR
[2018-03-12 09:35] LABS: BASO # 0.03 K/mm3 (0.0-2.0); BASO % 0.4 % (0.0-3.0); EOS # 0.1 (0.0-0.7); EOS % 1.8 % (1.5-5.0); GRAN # 5.68 (1.4-6.5); GRAN % 78.2 % (50.0-68.0); HEMOGLOBIN 12.1 g/dL (14.0-18.0); LYMPH # 1.1 (1.2-3.4); LYMPH % 14.4 % (22.0-35.0); MEAN CELL VOLUME 89.5 fl (80.0-105.0); MEAN CORPUSCULAR HEMOGLOBIN 30.9 pg (25.0-35.0); MEAN CORPUSCULAR HGB CONC 34.6 g/dl (31.0-37.0); MEAN PLATELET VOLUME 9.4 fl (7.0-11.0); MONO # 0.4 (0.1-0.6); MONO % 5.2 % (1.0-6.0); RBC 3.91 10^6/uL (3.5-6.1); RED CELL DISTRIBUTION WIDTH 14.3 % (11.5-14.5); WHITE BLOOD COUNT 7.3 10^3/ul (4.5-11.0)
[2018-03-12 09:45] LABS: ALBUMIN 4.1 g/dL (3.0-4.8); CALCIUM 8.3 mg/dL (8.4-10.5)
[2018-03-12 09:53] LABS: INR 1.13 (0.93-1.08); PARTIAL THROMBOPLASTIN TIME 30.5 Seconds (25.1-36.5)
[2018-03-12] MEDS ORDERED: Sodium Chloride 0.9% 1,000 ML IV SCH (10:15)
--- NOTE | 2018-03-12 10:30 | CT ---
PROCEDURE: CT Abdomen and Pelvis without intravenous contrast HISTORY: r/o kidney stone COMPARISON: 12/06/2017 CT TECHNIQUE: Without contrast. Contrast dose: Radiation dose: Total exam DLP = 897 mGy-cm. This CT exam was performed using one or more of the following dose reduction techniques: Automated exposure control, adjustment of the mA and/or kV according to patient size, and/or use of iterative reconstruction technique. FINDINGS: LOWER THORAX: There is linear scarring in the right middle lobe LIVER: Unremarkable. No gross lesion or ductal dilatation. GALLBLADDER AND BILE DUCTS: Unremarkable. PANCREAS: Unremarkable. No gross lesion or ductal dilatation. SPLEEN: Unremarkable. ADRENALS: Unremarkable. No mass. KIDNEYS AND URETERS: There is a large stone or collection of stone fragments in the right renal pelvis. In the coronal plane this measures 14 x 33 mm as seen on image 68 series 601. Perinephric and periureteral stranding is again seen. There are no ureteral stones demonstrated. VASCULATURE: Unremarkable. No aortic aneurysm. BOWEL: Unremarkable. No obstruction. No gross mural thickening. There is thinning and outpouching of the anterior abdominal wall. There is no obstruction APPENDIX: Unremarkable. Normal appendix. PERITONEUM: Unremarkable. No free fluid. No free air. LYMPH NODES: Unremarkable. No enlarged lymph nodes. BLADDER: There is severe mural thickening in the bladder which could represent chronic cystitis. Neoplasm cannot be excluded. Findings are unchanged REPRODUCTIVE: Unremarkable. BONES: No acute fracture. OTHER FINDINGS: None. IMPRESSION: Large stone or collection of stone fragments in the right renal pelvis with perinephric and periureteral stranding. Findings are unchanged. Chronic mural thickening in the bladder
[2018-03-12 11:27] LABS: URINE BILIRUBIN NEGATIVE (NEGATIVE); URINE BLOOD LARGE (NEGATIVE); URINE GLUCOSE (UA) NEGATIVE (NEGATIVE); URINE LEUKOCYTE ESTERASE MODERATE Leu/uL (NEGATIVE); URINE PROTEIN >=300 mg/dL (<30 mg/dL); URINE UROBILINOGEN 0.2 E.U./dL (<1 E.U./dL)
[2018-03-12 11:35] LABS: URINE APPEARANCE CLOUDY (CLEAR); URINE COLOR LIGHT YELLOW (YELLOW)
[2018-03-12 11:40] LABS: URINE BACTERIA LARGE (NEG); URINE RBC TNTC /hpf (0-2); URINE WBC TNTC /hpf (0-6)
[2018-03-12 13:47] VITALS: BMI 27.8
--- NOTE | 2018-03-12 19:46 | CON ---
DATE: 03/12/2018 REASON FOR CONSULTATION: Hyperkalemia, acute kidney injury, UTI. HISTORY OF PRESENTING ILLNESS: A 67-year-old male known to me from prior evaluations, the patient was seen in the office earlier in the week. He was found to have enterococcal UTI with drug resistance. The patient was advised to come to the emergency room. He was also found to have acute kidney injury superimposed on his chronic kidney disease stage 4/5 and hyperkalemia. Currently, patient is comfortable. He is lying in bed. He denies any nausea or vomiting. He denies any chest pain. He denies any shortness of breath. Denies any fevers or chills. He denies any abdominal pain. He is hemodynamically stable. LABORATORY DATA: Blood work showed his WBC count to be 7.3. Potassium was 5.1. BUN was 75 and creatinine of 5.2. His baseline creatinine is anywhere in the high 4s. PAST MEDICAL AND SURGICAL HISTORY: NIDDM, hypertension, chronic kidney disease stage IV, anemia of chronic kidney disease, chronic right hydronephrosis, right staghorn calculus, recurrent UTI, pyelonephritis, diverticulitis, colostomy, colostomy reversal, neurogenic bladder, perirectal abscess. FAMILY HISTORY: Noncontributory. SOCIAL HISTORY: No smoking, no alcohol use, no IV drug abuse. ALLERGIES: CEFTRIAXONE. MEDICATIONS AT HOME: Lopressor 50 b.i.d., Lasix 40 daily, Pepcid 20, Xarelto, amlodipine 5, sevelamer 800 mg with meals. REVIEW OF SYSTEMS: All systems are reviewed, pertinent positives as mentioned in history of presenting illness, rest unremarkable. PHYSICAL EXAMINATION: GENERAL: Elderly male, lying in bed, in no acute distress. VITAL SIGNS: Blood pressure 138/93, heart rate 82, respiratory rate 18, temperature 98.2. HEENT: Normocephalic, atraumatic, positive pallor. NECK: Supple, no JVD. LUNGS: Bilateral equal air entry, bilateral equal expansion, no rales. CARDIAC: S1 and S2, regular rate and rhythm, no murmur, no rub. ABDOMEN: Obese, distended, soft, nontender, bowel sounds present. EXTREMITIES: No lower extremity edema. LABORATORY DATA: WBC 7, hemoglobin 12, hematocrit 35, platelets 167. Sodium 142, potassium 5.1, chloride 113, CO2 12, BUN 75, creatinine 5.2, glucose 170, calcium 8.3, magnesium 1.7. AST 16, ALT 23, albumin 4.1. CT of the abdomen and pelvis, large stone in the right renal pelvis with perinephric and periureteral stranding. CURRENT MEDICATIONS: Lopressor 50 b.i.d., meropenem 250 every 12, amlodipine 5, Pepcid 20, Renagel 800 with meals, normal saline at 150, Xarelto, Zyvox. ASSESSMENT: 1. Resistant enterococcus urinary tract infection. 2. Acute kidney injury superimposed on chronic kidney disease stage IV. 3. Mild hyperkalemia. 4. Anion gap metabolic acidosis. 5. Staghorn calculus, right kidney, right pyelonephritis. 6. Noninsulin-dependent diabetes mellitus. 7. Hypertension. PLAN: 1. Continue antibiotics as per ID recommendations, dose all antibiotics for creatinine clearance about 10-30 mL/minute. 2. Change IV fluids to half-normal saline with 1 ampule of sodium bicarbonate at 100 mL/hour. 3. Monitor urine output. 4. Urology evaluation. 5. Dr. Allen Ellington evaluation for definitive treatment of right kidney. Ana Ochoa MD
--- NOTE | 2018-03-12 20:36 | CON ---
DATE: 03/12/2018 CHIEF COMPLAINT: Patient is in the emergency room complaining of fevers and chills and low dysuria and frequency. HISTORY OF PRESENT ILLNESS: A 67-year-old male with history of kidney disease, kidney stones and pyelonephritis, diabetes mellitus, peripheral vascular disease, hypertension, atrial fibrillation, vertebral osteomyelitis, Psoas abscess, MRSA bacteremia, osteomyelitis of the foot, has had multiple hospitalizations in the past, now admitted with low-grade fevers and chills, dysuria and frequency. REVIEW OF SYSTEMS: Thirteen-point review of system is noted. Patient has no nausea or vomiting at this point. No abdominal pain now. No headaches or blurred vision. No neck pain, no new joint pain, no new back pain. PAST MEDICAL HISTORY: Significant for diabetes mellitus, hypertension, peripheral vascular disease, atrial fibrillation, kidney disease, vertebral abscess, psoas abscess, MRSA bacteremia, osteomyelitis of his feet. PAST SURGICAL HISTORY: Significant for colostomy and cardiac cath and stent and pacemaker. ALLERGIES: PATIENT IS ALLERGIC TO CEFTRIAXONE. MEDICATIONS: Reviewed. PHYSICAL EXAMINATION: VITAL SIGNS: Patient is in bed with a temperature of 98, blood pressure is 128/80, respiratory rate of 19. HEENT: Unremarkable. NECK: Supple. LUNGS: Have decreased breath sounds. HEART: Normal S1, S2. ABDOMEN: Soft, nontender. No organomegaly. No rebound. No guarding. No masses. LABORATORY DATA: Reveals a white count of 7.3, hemoglobin of 12, platelets of 167. BUN of 75, creatinine of 5.2. Urinalysis is noted and kdd-gmkvatjd-rn-count wbc's, large bacteria, microbiology is pending. CAT scan is noted to be positive for pyelonephritis. ASSESSMENT AND PLAN: A 67-year-old male with kidney disease, kidney stones, pyelonephritis, diabetes, peripheral vascular disease, hypertension, atrial fibrillation, vertebral abscess, psoas abscess, methicillin-resistant Staphylococcus aureus bacteremia, who had Enterococcus and a urine culture in November and now presenting with pyelonephritis, large stone or collection. We will treat the patient with meropenem and Zyvox, pending blood cultures and urine cultures and urology evaluation. Joe Bergman MD
--- NOTE | 2018-03-13 01:36 | HP ---
HISTORY OF PRESENT ILLNESS: A 67-year-old male, was referred to [facility] by his fire claims adjuster when a recent evaluation showed that the patient has been having some dysuria and frequency, was found to have an abnormal urine culture. PAST MEDICAL HISTORY: Chronic renal disease, peripheral neuropathy, remote coronary artery stents with coronary artery disease, [id number]-zaofxipff diabetes, neurogenic bladder, colovesical fistula, urosepsis, CHF, peripheral vascular disease. SOCIAL HISTORY: He is a nonsmoker, nondrinker, non drug user. ALLERGIES: ROCEPHIN. HOME MEDICATIONS: Consist of Lopressor 50 mg b.i.d., Lasix 40 mg daily, Pepcid 20 mg daily, Xarelto 15 mg daily, Norvasc 5 mg daily, and Renagel 800 mg p.o. t.i.d. REVIEW OF SYSTEMS: Multiple systems are reviewed. Pertinent findings as documented in the physical. PHYSICAL EXAMINATION: VITAL SIGNS: Reported as showing a temperature of 98, his pulse is 95, his blood pressure is 128/84 with an oxygen saturation of 98% on room air, and respiratory rate is 17. GENERAL: He is alert and oriented x3. NECK: Supple. LUNGS: Show diminished breath sounds at the bases. HEART: S1 and S2. Grade 2/6 systolic murmur. ABDOMEN: Soft with positive bowel sounds. EXTREMITIES: Show no evidence of edema. LABORATORY DATA: WBC of 7.3, RBC of 3.91, hemoglobin 12, hematocrit 35, platelet count is 167. PT is 13 with an INR of 1.15, PTT is 30.5. Chemistry shows a sodium of 142, potassium is 5.1, chloride is 113, CO2 of 12, with a BUN of 75, creatinine is 5.2. His random blood sugar is 170. Calcium is 8.3. His AST is 16, ALT 23, alkaline phosphatase 106, his albumin is 4.1. Urinalysis shows yeast, large amount of urine bacteria, cue-rtegbnqv-es-count rbc's, jra-vjmnjinx-yx-count wbc's, moderate leukocyte esterase, large amount of blood. A CAT scan of the abdomen and pelvis reviewed by radiology is reported as showing a large stone or collection of stone fragments in the right renal pelvis, perinephritic and periureteral stranding is again seen. He has chronic mural thickening in the bladder. IMPRESSION: A 67-year-old male with chronic renal disease, acute renal insufficiency with pyuria, dysuria, renal stones, neurogenic bladder. The microbiological study of the urine showed an Enterococcus faecium from 12/08; however, the urine culture done as an outpatient showed organisms, which are resistant to multiple antibiotics. Patient is referred by his fire claims adjuster for admission, to be evaluated and started on IV antibiotics. We will check recent urine culture and get Infectious Disease's consult, get Nephrology consult. Also, we will get a Urology consult for evaluation of his renal stones and history of hydronephrosis and neurogenic bladder. Monitor his blood sugar and follow up his labs. Ana Frost MD
[2018-03-13 11:16] LABS: BASO # 0.03 K/mm3 (0.0-2.0); BASO % 0.4 % (0.0-3.0); EOS # 0.2 (0.0-0.7); EOS % 2.8 % (1.5-5.0); GRAN # 5.15 (1.4-6.5); GRAN % 76.9 % (50.0-68.0); HEMOGLOBIN 12.2 g/dL (14.0-18.0); LYMPH % 15.4 % (22.0-35.0); MEAN CELL VOLUME 89.8 fl (80.0-105.0); MEAN CORPUSCULAR HEMOGLOBIN 30.3 pg (25.0-35.0); MEAN CORPUSCULAR HGB CONC 33.8 g/dl (31.0-37.0); MEAN PLATELET VOLUME 9.1 fl (7.0-11.0); MONO # 0.3 (0.1-0.6); MONO % 4.5 % (1.0-6.0); RBC 4.02 10^6/uL (3.5-6.1); RED CELL DISTRIBUTION WIDTH 14.4 % (11.5-14.5); WHITE BLOOD COUNT 6.7 10^3/ul (4.5-11.0)
[2018-03-13 11:23] LABS: ALBUMIN 4.1 g/dL (3.0-4.8); CALCIUM 8.5 mg/dL (8.4-10.5)
--- NOTE | 2018-03-13 19:52 | CP.PCM.PN ---
Subjective - Date & Time of Evaluation Date of Evaluation: 03/13/18 Time of Evaluation: 11:35 - Subjective Subjective: No fevers, not in distress, still with some flank pain, no hematuria currently. Objective - Vital Signs/Intake and Output Vital Signs (last 24 hours): Temp Pulse Resp BP Pulse Ox 97.6 F 73 20 130/72 97 03/13/18 06:00 03/13/18 06:00 03/13/18 06:00 03/13/18 09:19 03/13/18 06:00 Intake and Output: 03/13/18 03/13/18 06:59 18:59 Intake Total 540 Output Total 500 Balance 40 - Medications Medications: Current Medications Amlodipine Besylate (Norvasc) 5 mg PO DAILY [facility] Last Admin: 03/13/18 09:19 Dose: 5 mg Famotidine (Pepcid) 20 mg PO DAILY [facility] Last Admin: 03/13/18 09:18 Dose: 20 mg Meropenem 250 mg/ Sodium (Chloride) 100 mls @ 100 mls/hr IVPB Q12H [facility] PRN Reason: Protocol Stop: 03/21/18 11:16 Last Admin: 03/12/18 23:00 Dose: 100 mls/hr Sodium Bicarbonate 50 meq/ (Sodium Chloride) 1,050 mls @ 100 mls/hr IV .[id number] [facility] Last Admin: 03/12/18 18:10 Dose: 100 mls/hr Linezolid (Zyvox) 600 mg PO BID [facility] PRN Reason: Protocol Stop: 03/21/18 11:17 Last Admin: 03/13/18 09:18 Dose: 600 mg Metoprolol Tartrate (Lopressor) 50 mg PO BID [facility] Last Admin: 03/13/18 09:18 Dose: 50 mg Rivaroxaban (Xarelto) 15 mg PO DAILY [facility] PRN Reason: Protocol Last Admin: 03/13/18 09:18 Dose: 15 mg Sevelamer HCl (Renagel) 800 mg PO ACTID [facility] Last Admin: 03/13/18 09:17 Dose: 800 mg - Labs Labs: PT 13.0 SECONDS (9.4-12.5) H 03/12/18 09:30 INR 1.13 (0.93-1.08) H 03/12/18 09:30 APTT 30.5 Seconds (25.1-36.5) 03/12/18 09:30 - Constitutional Appears: Non-toxic, Chronically Ill - Head Exam Head Exam: NORMAL INSPECTION - ENT Exam ENT Exam: Mucous Membranes Moist - Neck Exam Neck Exam: absent: Meningismus - Respiratory Exam Respiratory Exam: Decreased Breath Sounds - Cardiovascular Exam Cardiovascular Exam: +S1, +S2 - GI/Abdominal Exam GI & Abdominal Exam: Soft. absent: Tenderness Assessment and Plan - Assessment and Plan (Free Text) Plan: Assessment consider right sided pyelonephritis associated with nephrolithiasis, growing gram negative bacilli history of right middle lobe pneumonia history of cystitis with right sided hydronephrosis; E. faecium found in the urine history of Enterococcus urinary tract infection history of severe sepsis secondary to Morganella urinary tract infection history of Clostridium difficile diarrhea DM HTN CAD Atrial fibrillation History of vertebral osteomyelitis Plan continue Merrem pending identification and sensitivities of the gram negative bacilli in the urine; follow up Urology plans for the nephrolithiasis discussed with Dr. Frost will monitor clinically
--- NOTE | 2018-03-13 20:01 | PN ---
DATE: 03/13/2018 SUBJECTIVE: Patient is seen lying in bed. He is awake, he is alert, he is comfortable. He denies any pain, denies any shortness of breath. PHYSICAL EXAMINATION: GENERAL: Obese, elderly male, lying in bed. VITAL SIGNS: Blood pressure 135/86, heart rate 74, respiratory rate 20, temperature 97.7. HEENT: Normocephalic, atraumatic, positive pallor. NECK: Supple, no JVD. LUNGS: Bilateral equal air entry, bilateral equal expansion, no rales. CARDIAC: S1 and S2, regular rate and rhythm, no murmur, no rub. ABDOMEN: Obese, distended, soft, nontender, bowel sounds present. EXTREMITIES: No lower extremity edema. INTAKE AND OUTPUT: 540/500. LABORATORY DATA: WBC 6.7, hemoglobin 12.2, hematocrit 36, platelets 166. Sodium 146, potassium 4.7, chloride 116, CO2 of 15, BUN 71, creatinine 5, glucose 139, calcium 8.5, magnesium 1.7. AST 15, ALT 18, albumin 4.1. Urinalysis: Light yellow, cloudy, pH 6, specific gravity greater than 1.025, protein greater than 300, blood large, nitrite positive, leukocyte esterase moderate. Urine culture: Gram-negative kirti. CURRENT MEDICATIONS: Lopressor, meropenem, amlodipine, Pepcid, Renagel, half-normal saline with 1 ampule of sodium bicarbonate at 80, Xarelto, Zyvox. ASSESSMENT: 1. Enterococcal urinary tract infection. 2. Right pyelonephritis, right staghorn calculus. 3. Acute kidney injury superimposed on chronic kidney disease, stage IV. 4. Non insulin-dependent diabetes mellitus. 5. Hypertension. 6. Anemia of chronic disease. 7. Hypernatremia. 8. Anion gap metabolic acidosis. PLAN: 1. Antibiotics as per ID recommendations, dose for creatinine clearance about 10 to 30 mL/minute. 2. Continue IV fluids with sodium bicarbonate. 3. Case discussed with Dr. Allen Ellington and Dr. Sotelo, patient would ideally need a nephrectomy for this right kidney with hydronephrosis and recurrent pyelonephritis, but patient is not a surgical candidate. 4. Plan is for renal scan once UTI is cleared to see if there is any function in his right kidney. 5. Continue current antihypertensives. Ana Ochoa MD [facility] # [id number]
--- NOTE | 2018-03-13 21:57 | PN ---
DATE: 03/13/2018 SUBJECTIVE: This is a 67-year-old male sitting comfortably in this morning. Nursing staff relates that there were no particular problems during the night. PHYSICAL EXAMINATION: VITAL SIGNS: His temperature is 97.7, his pulse is 74, his blood pressure is 135/86. GENERAL: He is alert and oriented x3. LUNGS: Clear. HEART: S1 and S2 rhythm. ABDOMEN: Soft with positive bowel sounds. EXTREMITIES: Show no evidence of edema. LABORATORY DATA: Shows WBC of 6.7, RBC of 4.02, hemoglobin 12.2, hematocrit 36.1, platelet count is 166. Chemistry shows normal electrolytes. His BUN is 71, his creatinine is 5, random blood sugar is 146. The microbiological studies at this point, urine culture showing gram-negative rods. The patient has urinary tract infection, on meropenem by Infectious Disease. Sensitivity of the cultures is pending. MEDICATIONS: He has also received Zyvox p.o., he is on Xarelto, sodium bicarbonate, Renagel, Pepcid, Norvasc, and Lopressor. MEDICAL PROBLEMS: Renal stones, urinary tract infection, chronic renal disease stage 3, yff-[id number]-[id number] diabetes, he has a remote history of sepsis, urosepsis, peripheral vascular disease, colovesical fistula, remote coronary artery stent with coronary artery disease. He will be followed by Infectious Disease and Nephrology. Urology consult has been requested for recommendations regarding his renal stones and recurrent urinary tract infections and history of hydronephrosis on the right. Ana Frost MD
--- NOTE | 2018-03-14 01:21 | CON ---
DATE: 03/13/2018 GENITOURINARY CONSULTATION CHIEF COMPLAINT: Urinary tract infection. HISTORY OF PRESENT ILLNESS: This is a 67-year-old male, who is well known to me from multiple prior admissions. Patient has a long history of kidney stones with recurrent urinary tract infections. 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 He had an abnormal and resistant urine culture, and was admitted for antibiotics. Patient currently reports the dysuria has improved. He has mild urinary frequency. He denies any current gross hematuria. He has no fever. He has no chills, and he has no current flank pain. consultation was requested regarding the above. PAST MEDICAL HISTORY: Significant for chronic kidney disease, peripheral neuropathy, coronary artery disease, non-insulin dependent diabetes, neurogenic bladder, history of a colovesical fistula, current episodes of urosepsis, congestive heart failure, and peripheral vascular disease. MEDICATIONS FROM HOME: Include Lopressor, Lasix, Pepcid, Xarelto, Norvasc and Renagel. Currently on Zyvox. ALLERGIES: ALLERGIC TO ROCEPHIN. FAMILY HISTORY: Noncontributory for this admission. SOCIAL HISTORY: Denies any smoking, EtOH use or other drug use. REVIEW OF SYSTEMS: Patient currently complaining of mild urinary frequency. No lethargy or weakness. No fever or chills. No nausea or vomiting. No chest pain or shortness of breath. Other systems are negative. PHYSICAL EXAMINATION: GENERAL: Patient is awake and alert. He is answering questions. He is in no acute distress. He is afebrile. VITAL SIGNS: Temperature of 97.6. He has been afebrile since admission. Pulse of 73, BP 129/71, respirations 20. NECK: Supple. There is no adenopathy or mass noted. CHEST: Reveals a normal inspiratory effort. CARDIAC: Shows positive S1 and S2. There are some mild peripheral edema noted. ABDOMEN: Soft, nontender, nondistended. There is no hepatosplenomegaly. There is no costovertebral angle tenderness. GENITOURINARY: Phallus is normal. Scrotum is normal. Testes bilaterally descended, nontender, no masses. Epididymis are normal. EXTREMITIES: There is no cyanosis. There are some trace edema of the lower extremities noted. LABORATORY DATA: WBC count 6.7, it was 7.3 yesterday. GFR is 12, up 1 point from yesterday. Potassium has improved to 4.7. On urinalysis, positive for nitrites, too numerous to count rbc, too numerous to count wbc, positive for yeast, positive for protein. RADIOLOGIC DATA: Patient had a CT scan of the abdomen and pelvis, which showed there is a large stone or collection of stone fragments in the right renal pelvis, perinephric and periureteral stranding is again seen. There were no ureteral stones demonstrated. For the bladder, there was severe mural thickening in the bladder which could represent chronic cystitis, neoplasm could not be excluded. IMPRESSION AND PLAN: This is a 67-year-old male with known chronic kidney disease, persistent right renal pelvic stones. On review of the CT scan, there does not appear to be any hydronephrosis or obstruction. There is parenchymal loss. His CAT scan appears to be unchanged from multiple prior scans over the past few years. Patient has had a cystoscopy in my office, there is no evidence of bladder carcinoma. He does have chronic cystitis and appears to be colonized. His blood cultures currently showed no growth after 24 hours. His urine culture is positive for Gram-negative rods. Plan for now will be to continue IV fluids, IV antibiotics as per Infectious Disease consultation. As for the stones, this is a complicated case given that there is already atrophy and likely some evidence of chronic pyelonephritis of the kidney. I do not feel stent would adequately drain this patient or improve his overall kidney function. The patient would most likely benefit from a possible percutaneous nephrolithotomy; however, there is a high likelihood that he would lose renal function performing that procedure on a chronically infected kidney. The patient has no evidence of sepsis at this point. He is afebrile with a normal white count. It is unclear if the urine infection is actually coming from his kidney or possibly from a chronic cystitis as well. When the patient's condition has improved, I would plan on a renal scan to assess the function of the right kidney. It is possible that if infections continue to recur, possibly a right nephrectomy would be warranted; however, given the patient's overall renal function, that would likely cause him to need chronic hemodialysis. The patient is also on blood thinners which would need to be stopped before any invasive procedure was done. He is a high risk for anesthesia and for bleeding. I would try to treat him conservatively at this time with fluids and antibiotics to clear the infection. Plan on a renal scan when he has improved and the patient should follow up in my office as an outpatient. We can discuss a possible retrograde pyelogram and possible ureteroscopy with stone dusting in the renal pelvis, if the patient can be medically cleared for that procedure. Thank you for allowing me to participate in the care of this patient. Justo Sotelo MD
[2018-03-14 07:23] LABS: BASO # 0.02 K/mm3 (0.0-2.0); BASO % 0.4 % (0.0-3.0); EOS # 0.2 (0.0-0.7); GRAN # 3.89 (1.4-6.5); GRAN % 70.3 % (50.0-68.0); HEMOGLOBIN 11.4 g/dL (14.0-18.0); LYMPH # 1.1 (1.2-3.4); LYMPH % 19.9 % (22.0-35.0); MEAN CELL VOLUME 89.4 fl (80.0-105.0); MEAN CORPUSCULAR HEMOGLOBIN 30.1 pg (25.0-35.0); MEAN CORPUSCULAR HGB CONC 33.6 g/dl (31.0-37.0); MONO # 0.3 (0.1-0.6); MONO % 5.4 % (1.0-6.0); RBC 3.79 10^6/uL (3.5-6.1); RED CELL DISTRIBUTION WIDTH 14.3 % (11.5-14.5); WHITE BLOOD COUNT 5.5 10^3/ul (4.5-11.0)
[2018-03-14 07:34] LABS: CALCIUM 8.2 mg/dL (8.4-10.5)
--- NOTE | 2018-03-14 11:39 | PN ---
DATE: 03/14/2018 SUBJECTIVE: The patient is currently seen sitting in a room on 5R. He is comfortable. He is receiving IV antibiotic therapy along with IV fluid and sodium bicarbonate. The patient had a discussion with Dr. Sotelo. He will likely have a renal scan post the acute infection and if he has minimal residual renal function in the right kidney, he is possibly a candidate for a right nephrectomy. Otherwise, the patient could have a nephrostomy placed with breakup of the a likely infected kidney stones in the right kidney. MEDICATIONS: Medication list reviewed. The patient is currently on Lopressor, meropenem, Norvasc, Pepcid, Renagel, IV fluid with sodium bicarbonate and Xarelto. OBJECTIVE: INTAKE/OUTPUT: Intake 3170, output 1750. VITAL SIGNS: Blood pressure 136/86, temperature 97.5, pulse of 74 with a respiratory rate of 20. Pulse ox of 97%. HEENT: Exam shows him to be normocephalic, atraumatic. Conjunctivae are pink. Sclerae nonicteric. NECK: Supple. No neck vein distention. CHEST: Clear to auscultation and percussion with occasional rhonchi. No rales or wheezing. CARDIOVASCULAR: Shows a regular rate and rhythm with a soft systolic murmur, left lower sternal border. No ST, no S4, no rub. The patient has a pacemaker in place. ABDOMEN: Soft. Bowel sounds normal. No rebound or guarding. No lower quadrant tenderness. No suprapubic tenderness on palpation. He has a left lower quadrant large nonreducible abdominal wall hernia secondary to previous GI surgery. EXTREMITIES: Show no cyanosis, clubbing or edema. He has diminished lower extremity pulses bilaterally. LABORATORY DATA AND IMAGING: CT scan on admission shows a right staghorn calculus of the right kidney. No mention about hydronephrosis. The patient has had chronic hydronephrosis in the past. Labs: CBC, white blood cell count 5.5, hemoglobin 11.4, platelet count is 147,000. Coags: PT 13 with the PTT of 30.5. Chemistry showed normal sodium, normal potassium of 145 and 4.6. Chloride is 118 with a CO2 level of 14. The patient remains on sodium bicarbonate. BUN is 67, down from 71; creatinine is 4.6, down from 5. His baseline BUN is in the low 50 range with a baseline creatinine of about 4 or so. Glucose is 99. Calcium is 8.2. Phosphorus level is pending. Magnesium level was 1.7. Urines show protein, red cells and white blood cells. Microbiology: Initial urine culture positive gram-negative kirti. In the outpatient setting, the patient had Enterobacter growing out of the urine, sensitive only IV antibiotic therapy. Blood cultures are negative at 48 hours. ASSESSMENT: 1. Acute renal failure superimposed on chronic kidney disease stage IV. His best BUN had been in the low 50 range with a creatinine in the low 4 range. We should be able to achieve this goal with treatment of his infection and IV fluid administration. 2. History of Enterobacter urinary tract infection from outpatient cultures. Previously, the patient had Escherichia coli urinary tract infections. He had Enterococcus in the past also. His organisms are usually only sensitive to IV antibiotic therapy. 3. History of recurrent urinary tract infections in the setting of a neurogenic bladder. The patient has a large right kidney staghorn calculus with stone fragments and right-sided hydronephrosis. The patient had been seen by Dr. Sotelo, agree with assessment of Dr. Sotelo to try and be conservative during the time of the acute infection, but post the infection. Agree with renal scan and perhaps nephrostomy with breakup of the kidney stone. If there is viable kidney tissue on the right side or if there is negligible kidney function on the right side, perhaps a right nephrectomy. I do agree that this could put the patient closer to needing chronic dialysis. 4. History of secondary hyperparathyroidism, vitamin D deficiency. We will check levels. The patient had been on binder therapy, renal diet and vitamin D therapy. 5. History of anemia. Hemoglobin is stable, presently in the 11 range. No requirements for Aranesp or extra iron supplements. 6. History of hypertension. Blood pressure is controlled on current medication. The patient will continue beta-gino therapy and amlodipine. 7. History of [id number]-dzwlyebfr diabetes mellitus. Sugar control is acceptable. The patient is not requiring medication. 8. History of peripheral vascular disease, status post multiple lower extremity foot surgeries. This appears to be stable. 9. History of a paraspinal abscess with history of diverticulosis, colectomy, colostomy, reversal of colostomy, all appeared to be stable. Positive left lower quadrant abdominal wall hernia, which is reducible. This is being managed medically because of the large size. 10. History of atherosclerotic heart disease with mild valvular heart disease, history of permanent pacemaker for significant bradycardia. The patient had been followed by Cardiology in the past. PLAN: 1. Agree with plan from Dr. Sotelo to further assess the situation post treatment of his acute urinary tract infection. 2. Await urine cultures from the hospital lab. 3. Appreciate ID followup. 4. Agree with continued IV fluid administration with sodium bicarbonate. I will also place the patient on oral sodium bicarbonate therapy, which he had taken in the past. 5. Check phosphorus level and decide on binder therapy. 6. Check vitamin D level. 7. Close renal followup during hospitalization. Bryan Vail MD
--- NOTE | 2018-03-14 14:11 | PN ---
DATE: 03/14/2018 SUBJECTIVE: A 67-year-old male resting comfortably this morning. Nursing staff relates that there were no particular problems during the night. OBJECTIVE: VITAL SIGNS: His temperature is 97.5, his pulse is 77, his blood pressure is 144/93. His oxygen sat is 98% on room air. LABORATORY DATA: Shows his WBC is 5.5, RBC 3.79, hemoglobin 11.4, hematocrit 33.9, and platelet count 147. Chemistry shows sodium of 145, potassium 4.6, chloride 118, CO2 of 14. BUN is 67, the creatinine is 4.6. Random blood sugar is 107. Calcium is 8.2. Microbiological studies: He has a urine culture with Klebsiella pneumoniae species and Extended-spectrum beta-lactamase positive. Currently, the patient is being followed by Infectious Disease and receiving meropenem IV. He is also being followed by Nephrology for his chronic renal disease and he is receiving sodium bicarb infusion for his low CO2. He is also being placed on p.o. sodium bicarb. We will follow the current patient. Urology's note is recognized, reviewed, appreciated, and discussed with the patient. The patient is aware of the high risk of doing any sort of procedures, the potential risk of complications. We will continue the current antibiotic regimen at this time and discuss further treatment plan with the individual consultants. Ana Frost MD
--- NOTE | 2018-03-14 19:04 | PN ---
DATE: 03/14/2018 SUBJECTIVE: The patient was seen earlier this morning in room 569, bed 2. PHYSICAL EXAMINATION: VITAL SIGNS: Temperature is 98, blood pressure is 118/70, respiratory rate 20, heart rate of 68. HEENT: Unremarkable. NECK: Supple. LUNGS: Have decreased breath sounds. HEART: Normal S1, S2. ABDOMEN: Soft, nontender. LABORATORY EXAMINATION: Reveals a white count of 5.5, hemoglobin of 11. BUN of 67 and creatinine of 4.6. Urinalysis is noted. Microbiology reveals Klebsiella species in the urine culture. The blood cultures are negative. The Klebsiella is an ESBL Klebsiella and there was another gram-negative kirti. Further identification of sensitivity is pending and review of orders reveals the patient to be on meropenem. ASSESSMENT AND PLAN: A 67-year-old with right-sided pyelonephritis with Klebsiella extended-spectrum beta-lactamase and the patient with diabetes, hypertension, coronary artery disease and multiple urinary tract infections, right-sided hydronephrosis on meropenem currently. We will need at least 10 days of meropenem. No p.o. options are available for pyelonephritis. Today is day #3 of 10 days of meropenem. Joe Bergman MD
[2018-03-15 07:50] LABS: HEMOGLOBIN 10.5 g/dL (14.0-18.0); MEAN CELL VOLUME 89.7 fl (80.0-105.0); MEAN CORPUSCULAR HEMOGLOBIN 29.9 pg (25.0-35.0); MEAN CORPUSCULAR HGB CONC 33.3 g/dl (31.0-37.0); MEAN PLATELET VOLUME 9.4 fl (7.0-11.0); RBC 3.51 10^6/uL (3.5-6.1); RED CELL DISTRIBUTION WIDTH 14.4 % (11.5-14.5); WHITE BLOOD COUNT 5.3 10^3/ul (4.5-11.0)
[2018-03-15 08:10] LABS: ALBUMIN 3.4 g/dL (3.0-4.8); CALCIUM 7.8 mg/dL (8.4-10.5)
--- NOTE | 2018-03-15 09:35 | PN ---
DATE: 03/15/2018 SUBJECTIVE: The patient is currently seen comfortable sitting in chair in a room, on 5R. He was told by Infectious Disease and will likely need 10 days of IV antibiotic therapy. I did discuss with the patient the need to have a significant procedure done to either remove the infected kidney stones or perhaps if there is no renal function being provided by the kidney on the right side, to remove the kidney. Otherwise, the patient will likely return to the hospital for recurrent urinary tract infections, sensitive only to IV antibiotic therapy. MEDICATIONS Medication list reviewed. The patient is currently on metoprolol, meropenem, Norvasc, Pepcid, Renagel, IV fluids, sodium bicarbonate p.o. and Xarelto. OBJECTIVE: INTAKE/OUTPUT: Intake 560, output 750. VITAL SIGNS: Blood pressure 119/68, temperature 98.1, pulse 99, respiratory rate 20. HEENT: Exam, normocephalic, atraumatic. Conjunctivae are pink. Sclerae nonicteric. NECK: Supple. No neck vein distention. CHEST: Clear to auscultation and percussion. No rales, rhonchi or wheezing. CARDIOVASCULAR: Shows a regular rate and rhythm with a soft systolic murmur at the left lower sternal border. No S3. No S4. No rub. The patient has a pacemaker in place. ABDOMEN: Soft. Bowel sounds normal. No tenderness. Positive left lower quadrant nonreducible large abdominal wall hernia. EXTREMITIES: No lower extremity cyanosis, clubbing or edema. Diminished lower extremity pulses bilaterally. LABORATORY DATA AND IMAGING DATA: CBC today white blood cell count is 5.3 with a hemoglobin of 10.5 and a platelet count of 134,000. Chemistries show a CO2 which is now up to 17. Chloride is 117. Sodium 146, potassium 4.5, BUN is down to 61. Creatinine is 4. Glucose is 92. Calcium is 7.8 with an albumin of 3.4, corrects to normal. Phosphorus 4.3. Magnesium level is borderline low at 1.6. Liver enzymes are normal. Microbiology: Urine cultures in the hospital are positive for Klebsiella and Morganella morganii. Sensitive to meropenem. Cultures are negative at 48 hours. ASSESSMENT: 1. Acute renal failure superimposed on chronic kidney disease stage IV. The patient's baseline BUN is in the 50-60 range with a baseline creatinine in the low 4 range. He has currently reached his baseline levels. Hence, I will discontinue IV fluids. 2. Enterobacter urinary tract infection from the outpatient cultures, Klebsiella and Morganella from the inpatient cultures. The patient understands that he needs to have a definitive procedure to remove the infected stones from his right kidney. Otherwise, he will likely continue to see the urine and return for antibiotic therapy on a regular basis. 3. Large right kidney staghorn calculus, stone fragments and right-sided hydronephrosis. Dr. Sotelo is following the patient. Renal scan, perhaps early next week to assess the function of the right kidney. If the right kidney function is nil, perhaps a nephrectomy of the right kidney function is significant, perhaps removal of the stone with a nephrostomy. 4. History of secondary hyperparathyroidism, vitamin D deficiency in the past. Levels are pending. The patient had been on binder therapy in the past. Phosphorus level is presently 4.3. The patient will continue Renagel. 5. History of hypertension. Blood pressure is controlled on current medication. The patient will continue beta-gino therapy and amlodipine. 6. History of anemia. Hemoglobin is stable in 10 to 11 range, p.r.n. Aranesp and iron. 7. History of non-insulin dependent diabetes mellitus, sugar control is acceptable. The patient is off medication. 8. History of peripheral vascular disease, status post multiple lower extremity foot surgeries, stable. 9. History of paraspinal abscess with history of diverticulosis, colectomy, colostomy reversal of colostomy, all appear to be stable. Positive left lower quadrant abdominal wall hernia, which is reducible. This is being managed medically. No plans for surgery in light of the large size of the hernia. 10. History of atherosclerotic heart disease with mild valvular heart disease, status post permanent pacemaker for bradycardia. The patient had been followed by Cardiology in the past. PLAN: 1. I will discontinue IV fluids. The patient will continue on oral sodium bicarbonate therapy, he will remain hydrated. 2. As per Dr. Bergman, likely 10 days of IV antibiotic therapy. 3. Renal scan as per Dr. Sotelo, perhaps early next week. To assess the level of function of the right kidney and to help determine what would be the best procedure to remove the kidney stones, either a nephrectomy or perhaps nephrostomy with blasting of the stones and removal. 4. Continue renal diet. 5. Continue to monitor labs. Bryan Vail MD
--- NOTE | 2018-03-15 10:49 | PN ---
DATE: 03/15/2018 SUBJECTIVE: The patient is resting comfortably in his room at the present time. Nursing staff relates that there are no problems during the night. PHYSICAL EXAMINATION: VITAL SIGNS: His temp is 98.1, his pulse is 88, his blood pressure is 119/68, his oxygen sat is 96% on room air with a respiratory rate of 20. GENERAL: He is alert and oriented x3. LUNGS: Clear. HEART: An S1 and S2 rhythm. ABDOMEN: Soft with positive bowel sounds. EXTREMITIES: Show no evidence of edema. LABORATORY DATA: Shows a WBC of 5.3, RBC of 3.51, hemoglobin 10.5, hematocrit 31.5, platelet count 134. Chemistry shows sodium 146, potassium 4.5, chloride 117, CO2 of 17. His BUN is 61, his creatinine is 4, his calcium is 7.8, his albumin is 3.4. His LFTs are normal. The magnesium is 1.6, his phosphorus is 4.3. ASSESSMENT AND PLAN: The patient is receiving IV antibiotic therapy for urinary tract infection. He has renal stones. He has a history of chronic renal disease, history of chronic anemia, history of lsv-zkkdtel-zpqlfjhyx diabetes, history of urosepsis, history of remote coronary artery disease with stent placement, history of remote colovesical fistula. The patient is growing Klebsiella pneumoniae and Morganella morganii in the urine. Concern is that the etiology could be coming from the stones. After discussion with Infectious Disease and Nephrology and review of Urology's note, we will get a renal scan to evaluate the patient's kidney function. We will continue his Lopressor, meropenem, Norvasc, Pepcid, Renagel, sodium bicarbonate and Xarelto. Ana Frost MD
--- NOTE | 2018-03-15 13:19 | PN ---
DATE: 03/15/2018 SUBJECTIVE: The patient is in bed, in no acute distress. PHYSICAL EXAMINATION: VITAL SIGNS: Temperature is 98, blood pressure is 119/60, respiratory rate of 20, heart rate of 99. HEENT: Examination of HEENT is unremarkable. NECK: Supple. LUNGS: Have decreased breath sounds. HEART: Normal S1, S2. ABDOMEN: Soft, nontender. LABORATORY DATA: Laboratory examination reveals a white count of 7.3, hemoglobin of 12, platelets of 167. Coagulation is noted. Chemistries: BUN of 61, creatinine of 4. Urinalysis is noted. Microbiology reveals Klebsiella pneumoniae and Morganella morganii. The Klebsiella pneumoniae is ESBL, the Morganella morganii is sensitive to cefepime and meropenem. Dr. Moncada's note is reviewed. ASSESSMENT AND PLAN: A 67-year-old with a right-sided pyelonephritis with Klebsiella pneumoniae, which is extended-spectrum beta-lactamase positive and Morganella morganii. The patient is diabetic and has hypertension, coronary artery disease, multiple urinary tract infections with right-sided hydronephrosis and today is day #4 of 10 days of meropenem, waiting for urological evaluation and intervention. Dr. Justo Sotelo's consultation is noted from 03/13/2018 and concerned about infected stones. Case discussed with Dr. Frost. Dr. Vail will be requesting a renal scan regarding function. We will follow with you. Joe Bergman MD
[2018-03-16 07:08] LABS: HEMOGLOBIN 10.5 g/dL (14.0-18.0); MEAN CELL VOLUME 90.3 fl (80.0-105.0); MEAN CORPUSCULAR HEMOGLOBIN 29.8 pg (25.0-35.0); MEAN PLATELET VOLUME 9.5 fl (7.0-11.0); RBC 3.52 10^6/uL (3.5-6.1); RED CELL DISTRIBUTION WIDTH 14.2 % (11.5-14.5); WHITE BLOOD COUNT 6.2 10^3/ul (4.5-11.0)
[2018-03-16 07:40] LABS: ALB/GLOB RATIO 0.9 (1.1-1.8); ALBUMIN 3.3 g/dL (3.0-4.8); CALCIUM 7.9 mg/dL (8.4-10.5)
--- NOTE | 2018-03-16 10:24 | PN ---
DATE: 03/16/2018 SUBJECTIVE: The patient is seen early this morning, is comfortable. No nausea or vomiting. He has been a little better. PHYSICAL EXAMINATION: VITAL SIGNS: Temperature is 97, blood pressure is 130/70, respiratory rate of 16. HEENT: Examination of HEENT is unremarkable. NECK: Supple. LUNGS: Have decreased breath sounds. HEART: Normal S1, S2. ABDOMEN: Soft, nontender. LABORATORY DATA: Laboratory examination reveals a white count of 6.2, hemoglobin of 10, platelets of 134. BUN of 60, creatinine of 3.7 and urinalysis is noted. Microbiology reveals the blood cultures are negative. Urine culture is Klebsiella and Morganella morganii and the Klebsiella is ESBL. Morganella morganii sensitivity is noted and reviewed. It is sensitive to cefepime and meropenem. Review of orders reveals the patient to be on meropenem, which requires renewal, which I will do so. Dr. Frost' note is reviewed from yesterday. ASSESSMENT AND PLAN: A 67-year-old male with right-sided pyelonephritis with Klebsiella pneumoniae, which is extended-spectrum beta-lactamase Klebsiella pneumoniae, also with Morganella morganii. The patient is a patient with diabetes and hypertension, coronary artery disease, multiple urinary tract infections, right hydronephrosis and we will complete 10 days of meropenem. Today is day #5 of [address] Sotelo's consultation is noted and the concern about infected stone and surgical intervention as per Dr. Sotelo. Joe Bergman MD
[2018-03-16] MEDS ORDERED: Ergocalciferol 50,000 Intl Units Cap PO SCH ×2 (10:30)
--- NOTE | 2018-03-16 12:02 | PN ---
DATE: 03/16/2018 SUBJECTIVE: The patient is currently seen ambulating in the hallway on 5R. He continues on IV antibiotic therapy. His labs continue to improve. The patient is scheduled for a split function renal scan to assess the function of the right kidney. He is being evaluated for a possible right nephrectomy in light of the fact that he has staghorn infected kidney stone, which continues to seed the urine and leads to recurrent urinary tract infections. MEDICATIONS: Medication list reviewed. The patient is on metoprolol, meropenem, Norvasc, Pepcid, Renagel, oral sodium bicarbonate and Xarelto. OBJECTIVE: INTAKE/OUTPUT: Intake 11 40, output not charted. VITAL SIGNS: Blood pressure 136/88, temperature 97.9, respiratory rate is 20 with a pulse of 88. HEENT: Normocephalic, atraumatic. Conjunctivae are pink. Sclerae nonicteric. NECK: Supple. No neck vein distention. CHEST: Clear to auscultation and percussion. No rales, rhonchi or wheezing. CARDIOVASCULAR: Shows a regular rate and rhythm with a soft systolic murmur, left lower sternal border. No ST, no S4. No rub. The patient has a permanent pacemaker in place. ABDOMEN: Soft. Bowel sounds normal. No tenderness. Positive left lower quadrant nonreducible large abdominal wall hernia. EXTREMITIES: Show no lower extremity cyanosis, clubbing or edema. Diminished lower extremity pulses bilaterally. LABORATORY DATA AND IMAGING: CBC today white blood cell count remains normal at 6.2, hemoglobin stable at 10.5, platelet count is 134,000. Chemistries show a BUN of 60 with a creatinine now down to 3.7 within his baseline range. CO2 remains low at 17, chloride is 117, potassium is 4.3, calcium is 7.9 with an albumin level of 3.3, phosphorus is 4.5, magnesium level is 1.7. The patient's vitamin D level is nondetectable. Microbiology positive for Klebsiella and Morganella in his urine. Outpatient cultures grew Enterobacter. Sensitive to only IV antibiotic therapy. Blood cultures are negative at 72 hours. ASSESSMENT: 1. Acute renal failure superimposed on chronic kidney disease stage IV, essentially resolved. The patient is currently off IV fluids. He remains on oral sodium bicarbonate for his metabolic acidosis. 2. Enterobacter tract infection from the outpatient cultures. Klebsiella and Morganella from inpatient cultures. The patient will need to complete a full course of antibiotic therapy. 3. History of large right staghorn renal calculus, stone fragments, likely infected with right-sided hydronephrosis. The patient is being scheduled for a split function renal scan. The choices would either be doing a nephrostomy with blasting the infected kidney stones and removing the stones versus doing a complete right kidney nephrectomy. If the kidney function is essentially nil, the patient will have a nephrectomy. 4. Secondary hyperparathyroidism with vitamin D deficiency. The patient will be restarted back on vitamin D therapy. Vitamin D levels are nondetectable. Phosphorus level was normal. We will continue binder therapy and he will continue a renal diet. 5. History of hypertension, controlled on present medical therapy. The patient will continue beta-gino therapy and amlodipine. 6. History of anemia. Hemoglobin stable in the 10-11 range. Continue Aranesp and iron on an as-needed basis. 7. History of sos-dalhikq-boshzgqup diabetes mellitus. Sugar control is acceptable. The patient is off all medication. 8. History of peripheral vascular disease, status post multiple lower extremity foot surgeries, stable. 9. History of paraspinal abscess with history of diverticulosis, colectomy, colostomy, reversal of colostomy, all appeared to be stable. He has a large nonreducible left lower quadrant abdominal wall hernia. This is being treated medically. 10. History of atherosclerotic heart disease with mild valvular heart disease, status post permanent pacemaker for bradycardia. The patient appears to be stable. PLAN: 1. The patient will complete course of antibiotic therapy. 2. The patient will be followed by Dr. Sotelo, his urologist and decisions regarding a plan of action pending renal scan. 3. Continue renal diet. 4. Continue to monitor labs closely. Bryan Vail MD [facility]
--- NOTE | 2018-03-16 15:14 | PN ---
DATE: 03/16/2018 SUBJECTIVE: The patient is resting in bed this morning. No specific complaints at this time. PHYSICAL EXAMINATION VITAL SIGNS: Reportedly showing a temp of 97.9, pulse is 71, blood pressure is 137/75, respiratory rate is 20, oxygen sat is 97% on room air. NECK: Supple. LUNGS: Clear. HEART: S1 and S2 rhythm. ABDOMEN: Soft, scaphoid, positive bowel sounds. EXTREMITIES: Show no evidence of edema. NEUROLOGIC: He is alert and oriented x3. LABORATORY DATA: Sodium 148, potassium 4.3, chloride 117, BUN is 60, creatinine is 3.7. His magnesium is 1.7. His calcium is 7.9. His albumin is 3.3. LFTs are normal. His vitamin D level is less than 12.8. CBC shows WBC of 6.2, RBC of 3.52, hemoglobin 10.5, hematocrit 31.8, platelet count 134. Microbiological study shows a urine culture with Klebsiella pneumoniae and Morganella morganii. ASSESSMENT: 1. The patient has urinary tract infection with no history of renal stones. Currently on meropenem IV. 2. As per discussion with Infectious Disease, Nephrology, Urology, a renal scan will be requested to assess the function of the patient's kidneys and to then further discern as to what might be the best approach to manage the renal stones. 3. He has anemia of chronic disease. 4. He has a history of [id number]-tkeatkwtq diabetes. 5. He has a history of peripheral vascular disease. 6. Remote history of coronary artery stent. 7. History of fistula. 8. History of paroxysmal atrial fibrillation. 9. History of chronic kidney disease. 10. Acute renal insufficiency. PLAN: Notes of ID and Renal had been reviewed. Continue current level of care. Continue the course of antibiotics. A 10-day course has been recommended. This findings have been discussed fully with the patient. Ana Frost MD
[2018-03-17 07:39] LABS: HEMOGLOBIN 11.4 g/dL (14.0-18.0); MEAN CELL VOLUME 90.6 fl (80.0-105.0); MEAN CORPUSCULAR HEMOGLOBIN 29.8 pg (25.0-35.0); MEAN CORPUSCULAR HGB CONC 32.9 g/dl (31.0-37.0); MEAN PLATELET VOLUME 9.7 fl (7.0-11.0); RBC 3.83 10^6/uL (3.5-6.1); RED CELL DISTRIBUTION WIDTH 14.1 % (11.5-14.5); WHITE BLOOD COUNT 6.2 10^3/ul (4.5-11.0)
[2018-03-17 08:04] LABS: CALCIUM 8.2 mg/dL (8.4-10.5)
--- NOTE | 2018-03-17 16:58 | PN ---
DATE: 03/16/2018 SUBJECTIVE: The patient is currently seen sitting up in a chair in his room. He remains on IV antibiotic therapy. I did schedule the patient for a split function renal scan this week to assess the function of the right kidney. He is being evaluated for a possible right total nephrectomy if the function of the right kidney is nil. If he does have significant function of the right kidney, we will possibly ask Dr. Sotelo to do a procedure which breaks up the stones and removes the stones nephrostomy tube. MEDICATIONS: Medication list reviewed. The patient is currently on vitamin D, Lopressor, meropenem, Norvasc, Pepcid, Renagel, oral sodium bicarbonate and Xarelto. PHYSICAL EXAMINATION INTAKE AND OUTPUT: Intake 660, output 0. VITAL SIGNS: Blood pressure 134/78, temperature 98, respiratory rate 18, pulse of 69, oxygen saturation 98%. HEENT: Normocephalic, atraumatic. Conjunctivae are pink. Sclerae nonicteric. NECK: Supple. No neck vein distention. CHEST: Clear to auscultation and percussion. No rales, rhonchi or wheezing. CARDIOVASCULAR: Regular rate and rhythm with soft systolic murmur in the left lower sternal border. No S3. No S4. No rub. The patient has a permanent pacemaker in place. ABDOMEN: Soft. Bowel sounds normal. No tenderness. Positive large left lower quadrant nonreducible abdominal wall hernia. EXTREMITIES: Show no lower extremity cyanosis, clubbing or edema. He has diminished lower extremity pulses bilaterally. LABORATORY DATA AND IMAGING: CBC: White blood cell count today 6.2, hemoglobin stable at 11.4, platelet count is 132,000. Chemistry shows sodium of 146, potassium of 4.7. Chloride 114 with a CO2 of 17. BUN is 62 with a creatinine of 4.1 which is stable. Off IV fluids has been a slight increase in creatinine, but well within his baseline range. Glucose is 91. Calcium is 8.2 with a phosphorus of 4.2. Vitamin D level was low. PTH level is pending. Microbiology: Urine cultures are positive inpatient for Klebsiella and Morganella. Outpatient cultures were positive for Enterobacter. Blood cultures are negative at 96 hours. ASSESSMENT: 1. Acute renal failure superimposed on chronic kidney disease stage IV, essentially resolved. The patient may remain off IV fluids as long as he stays well-hydrated. The patient will continue oral sodium bicarbonate for his metabolic acidosis. 2. History of recurrent urinary tract infection with Enterobacter growing from outpatient cultures and Klebsiella and Morganella from inpatient cultures. The patient will complete at least a 10-day course of IV antibiotic therapy. 3. History of a large right staghorn renal calculus with stone fragments, likely infected, likely urine. The patient has right-sided hydronephrosis. I ordered a split function renal scan. 4. Secondary hyperparathyroidism with vitamin D deficiency. PTH level was pending. Vitamin D level was low. The patient remains on supplements. Phosphorus level was acceptable at 4.2, on binder therapy and a renal diet. 5. History of hypertension, controlled on present medical therapy. The patient will continue beta-gino therapy and amlodipine. 6. History of anemia. Hemoglobin is stable in the 11 range. Continue Aranesp and iron on a p.r.n. basis. 7. History of non-insulin dependant diabetes mellitus. The patient is off all medication. Sugar control is acceptable. 8. History of peripheral vascular disease status post multiple lower extremity foot surgeries, all stable. 9. History of paraspinal abscess with history of diverticulosis, colectomy, colostomy, reversal of colostomy, all appeared to be stable. He has a large nonreducible left lower quadrant abdominal wall hernia and this is being treated medically. 10. History of atherosclerotic heart disease. Mild valvular heart disease status post permanent pacemaker for bradycardia, all appears to be stable. The patient continues on chronic anticoagulation. PLAN: 1. Split function renal scan ordered. 2. Continue IV antibiotic therapy under the guidance of Infectious Disease. 3. Await further input from Dr. Sotelo post completion of the renal scan. 4. Continue present medications including renal diet and binder therapy. Bryan Vail MD
--- NOTE | 2018-03-17 18:12 | PN ---
DATE: 03/17/2018 SUBJECTIVE: The patient is a 67-year-old male, receiving IV antibiotic therapy for a urinary tract infection with Klebsiella pneumoniae and Morganella morganii. PHYSICAL EXAMINATION: VITAL SIGNS: Show a temp of 98, his blood pressure is 133/60, pulse is 80, respiratory rate is 18, oxygen sat is 98% on room air. LUNGS: Clear. HEART: An S1 and S2 rhythm. ABDOMEN: Soft with positive bowel sounds. He has evidence of a hernia wherein he previously had a colostomy. EXTREMITIES: Show no evidence of edema. LABORATORY DATA: Shows a sodium of 146, potassium 4.7, chloride 114, the CO2 is 17, the BUN is 62, the creatinine is 4.1, calcium is 8.2. His random blood sugar is 107. CBC shows WBC of 6.2, RBC 3.83, hemoglobin 11.4, hematocrit 34.7, platelet count 132. MEDICATIONS: Currently, the patient is on vitamin D supplementation weekly. He is on Lopressor, meropenem, Norvasc, Pepcid, Renagel, sodium bicarbonate and Xarelto. ASSESSMENT AND PLAN: The patient will continue to receive his IV antibiotics as per Infectious Disease to complete a course of 10 days. He has a history of renal stones and a renal scan will be ordered by Nephrology to evaluate the patient's renal function as part of the evaluation for the management of his renal stones and his urinary tract infection. We will continue to monitor the patient closely and follow the patient's labs. He has underlying chronic renal disease, remote coronary artery disease with stent, history of urosepsis, history of hydronephrosis. Ana Frost MD
--- NOTE | 2018-03-18 02:19 | PN ---
DATE: 03/17/2018 SUBJECTIVE: The patient is in bed, in no acute distress, nontoxic. PHYSICAL EXAMINATION: VITAL SIGNS: Temperature is 98, blood pressure is 130/60, respiratory rate of 20. HEENT: Unremarkable. NECK: Supple. LUNGS: Have decreased breath sounds. HEART: Normal S1, S2. ABDOMEN: Soft, nontender. LABORATORY EXAMINATION: Reveals a white count of 6.2, hemoglobin of 11, platelets of 132. BUN of 62, creatinine of 4.1. Microbiology reveals Morganella morganii and Klebsiella pneumoniae. Sensitivities are noted and reviewed. Currently, the patient is on meropenem. ASSESSMENT AND PLAN: A 67-year-old male with a right-sided pyelonephritis with Klebsiella pneumoniae with extended-spectrum beta-lactamase, Klebsiella pneumoniae, and Morganella morganii and the patient with diabetes, hypertension, coronary artery disease, multiple urinary tract infections, right hydronephrosis and today is day #6 of meropenem, we will complete at least 10 days of meropenem. Urology note is reviewed. Discussed with nursing staff. Joe Bergman MD
[2018-03-18 07:10] LABS: HEMOGLOBIN 10.3 g/dL (14.0-18.0); MEAN CELL VOLUME 90.7 fl (80.0-105.0); MEAN CORPUSCULAR HEMOGLOBIN 29.9 pg (25.0-35.0); MEAN CORPUSCULAR HGB CONC 32.9 g/dl (31.0-37.0); MEAN PLATELET VOLUME 9.4 fl (7.0-11.0); RBC 3.45 10^6/uL (3.5-6.1); RED CELL DISTRIBUTION WIDTH 13.9 % (11.5-14.5)
[2018-03-18 07:14] LABS: ALB/GLOB RATIO 0.9 (1.1-1.8); ALBUMIN 3.3 g/dL (3.0-4.8); CALCIUM 7.9 mg/dL (8.4-10.5)
--- NOTE | 2018-03-18 15:06 | NM ---
PROCEDURE: Renal scan and flow study. HISTORY: split function renal scan, CKD4, eval for R Nx COMPARISON: 06/23/2013 renal scan and flow study 03/12/2018 CT abdomen pelvis. Summary of findings on the comparison examination: Large stone or collection of stone fragments in the right renal pelvis with perinephric and periureteral stranding. 07/14/2015 CT abdomen and pelvis TECHNIQUE: 9.3 mCi technetium 99 M Mag 3 administered intravenously FINDINGS: Right Kidney: Flow component: Normal flow to the right kidney Time to peak: 10.4 minutes Peak to T1/2 Peak: 3 minutes Left Kidney: Flow component: Normal perfusion to the left kidney Time to peak: 9.4 minutes Peak to T1/2 Peak: 7 minutes Split Renal Function: Right kidney 18.3 % Left kidney 81.7 % IMPRESSION: Markedly diminished function right kidney compared to left. This is likely explained in part on findings on recent CT scan.
--- NOTE | 2018-03-18 15:23 | PN ---
DATE: 03/18/2018 SUBJECTIVE: The patient is seen lying in bed. He is awake. He is alert. He is comfortable. He is in no acute distress. PHYSICAL EXAMINATION VITAL SIGNS: Blood pressure 125/65, heart rate 60, respiratory rate 20, temperature 97.9. HEENT: Normocephalic, atraumatic, positive pallor. NECK: Supple, no JVD. LUNGS: Bilateral equal air entry, bilateral rhonchi, no rales. CARDIAC: S1 and S2, regular rate and rhythm, no murmur, no rub. ABDOMEN: Obese, distended, soft, nontender, bowel sounds present. EXTREMITIES: No lower extremity edema. INTAKE AND OUTPUT: Not charted. LABORATORY DATA: WBC 5, hemoglobin 10, hematocrit 31, platelets 105. Sodium 144, potassium 4.5, chloride 115, CO2 of 18, BUN 63, creatinine 3.9, glucose 88, calcium 7.9, phosphorus 4.2, magnesium 1.7, albumin 3.3, corrected calcium is 8.3. Urine culture; Klebsiella pneumoniae and morganii species. CURRENT MEDICATIONS: Drisdol, Lopressor, meropenem 250 every 12 hours, amlodipine 5, Pepcid 20, sevelamer 800 three times with meals, sodium bicarbonate 650 t.i.d., Xarelto. ASSESSMENT: 1. Resolved acute kidney injury, stable chronic kidney disease stage IV. 2. Recurrent upper respiratory tract infection, Enterobacter in outpatient cultures, Klebsiella and Morganella in inpatient cultures. 3. Right hydronephrosis, right staghorn calculus, right pyelonephritis. 4. Secondary hyperparathyroidism. 5. Hypertension. 6. Non-insulin dependant diabetes mellitus. 7. Anemia. 8. History of paraspinal abscess. 9. History of coronary artery disease. PLAN: 1. Followup renal scan, long discussion with Dr. Allen Ellington, who had discussed with Dr. Sotelo, definitive treatment for this recurrent UTI with the staghorn calculus and right hydronephrosis is nephrectomy, for which the patient may not be a candidate. 2. At this time, continue to push p.o. fluids. 3. Continue antibiotics as per ID recommendations, dose for creatinine clearance about 30 mL/minute. 4. Blood pressure is well controlled. 5. Avoid nephrotoxins. 6. Monitor fingersticks and continue insulin coverage. Ana Ochoa MD [facility] # [id number]
--- NOTE | 2018-03-18 16:08 | PN ---
DATE: 03/18/2018 SUBJECTIVE: A 67-year-old male resting comfortably today. He is receiving IV antibiotics for urinary tract infection with resistant bacteria. PHYSICAL EXAMINATION: VITAL SIGNS: Show a temp of 97.6, pulse of 60, blood pressure is 125/65, oxygen sat is 97% on room air. GENERAL: He is alert and oriented x3. NECK: Supple. LUNGS: Clear. HEART: Has an S1 and S2 rhythm. ABDOMEN: Soft with positive bowel sounds. LABORATORY DATA: CBC shows WBC of 5, RBC of 3.45, hemoglobin 10.3, hematocrit 31.3, platelet count is 105,000. Chemistry shows sodium 144, potassium 4.5, chloride 115, CO2 is 18, BUN is 63, creatinine is 3.9. The patient is on IV meropenem, being followed by Infectious Disease. He has a history of renal stones with right hydronephrosis, being followed by Nephrology and Urology. A renal scan has been ordered to evaluate the patient's kidney function. There was an ongoing discussion about the management of his renal stone given his recurrent urinary tract infections. He has a history in the past of urosepsis and he has underlying renal disease, chronic. Risks and benefits of possible nephrectomy is being discussed with the patient pending the results of the renal scan. We will continue current medical management at this time and follow the patient's labs. Ana Frost MD
--- NOTE | 2018-03-18 21:58 | CP.PCM.PN ---
Subjective - Date & Time of Evaluation Date of Evaluation: 03/18/18 Time of Evaluation: 11:35 - Subjective Subjective: Afebrile, not in distress. Objective - Vital Signs/Intake and Output Vital Signs (last 24 hours): Temp Pulse Resp BP Pulse Ox 97.6 F 60 60 H 125/65 97 03/18/18 06:00 03/18/18 09:23 03/18/18 06:00 03/18/18 09:23 03/18/18 06:00 Intake and Output: 03/18/18 03/18/18 06:59 18:59 Intake Total 270 Balance 270 - Medications Medications: Current Medications Amlodipine Besylate (Norvasc) 5 mg PO DAILY ON LICENSE OF [facility] Last Admin: 03/18/18 09:23 Dose: 5 mg Ergocalciferol (Drisdol 50,000 Intl Units Cap) 1 cap PO Q7D ON LICENSE OF [facility] Last Admin: 03/16/18 11:54 Dose: 1 cap Famotidine (Pepcid) 20 mg PO DAILY ON LICENSE OF [facility] Last Admin: 03/18/18 09:21 Dose: 20 mg Meropenem 250 mg/ Sodium (Chloride) 100 mls @ 100 mls/hr IVPB Q12H ON LICENSE OF [facility] PRN Reason: Protocol Stop: 03/21/18 11:16 Last Admin: 03/17/18 23:02 Dose: 100 mls/hr Metoprolol Tartrate (Lopressor) 50 mg PO BID ON LICENSE OF [facility] Last Admin: 03/18/18 09:22 Dose: 50 mg Rivaroxaban (Xarelto) 15 mg PO DAILY ON LICENSE OF [facility] PRN Reason: Protocol Last Admin: 03/18/18 09:22 Dose: 15 mg Sevelamer HCl (Renagel) 800 mg PO ACTID ON LICENSE OF [facility] Last Admin: 03/18/18 08:23 Dose: 800 mg Sodium Bicarbonate (Sodium Bicarbonate Tab) 650 mg PO TID ON LICENSE OF [facility] Last Admin: 03/18/18 09:21 Dose: 650 mg - Labs Labs: 03/18/18 06:35 03/18/18 06:35 PT 13.0 SECONDS (9.4-12.5) H 03/12/18 09:30 INR 1.13 (0.93-1.08) H 03/12/18 09:30 APTT 30.5 Seconds (25.1-36.5) 03/12/18 09:30 - Constitutional Appears: Non-toxic, Chronically Ill - Head Exam Head Exam: NORMAL INSPECTION - Respiratory Exam Respiratory Exam: Decreased Breath Sounds - Cardiovascular Exam Cardiovascular Exam: +S1, +S2 - GI/Abdominal Exam GI & Abdominal Exam: Soft. absent: Tenderness Assessment and Plan - Assessment and Plan (Free Text) Plan: Assessment consider right sided pyelonephritis associated with nephrolithiasis, growing Klebsiella and Morganella history of right middle lobe pneumonia history of cystitis with right sided hydronephrosis; E. faecium found in the urine history of Enterococcus urinary tract infection history of severe sepsis secondary to Morganella urinary tract infection history of Clostridium difficile diarrhea DM HTN CAD Atrial fibrillation History of vertebral osteomyelitis Plan continue Merrem day 6 to complete 1-14 days of antibiotics; follow up Urology plans for the nephrolithiasis will continue to monitor clinically
[2018-03-18 23:01] VITALS: O2SAT 96
[2018-03-19 07:04] LABS: HEMOGLOBIN 10.2 g/dL (14.0-18.0); MEAN CELL VOLUME 90.9 fl (80.0-105.0); MEAN CORPUSCULAR HEMOGLOBIN 29.8 pg (25.0-35.0); MEAN CORPUSCULAR HGB CONC 32.8 g/dl (31.0-37.0); MEAN PLATELET VOLUME 9.2 fl (7.0-11.0); RBC 3.42 10^6/uL (3.5-6.1); RED CELL DISTRIBUTION WIDTH 14.1 % (11.5-14.5); WHITE BLOOD COUNT 5.4 10^3/ul (4.5-11.0)
[2018-03-19 07:31] LABS: ALB/GLOB RATIO 0.9 (1.1-1.8); ALBUMIN 3.3 g/dL (3.0-4.8)
[2018-03-19 09:12] VITALS: RESP 20; TEMP 98.1
[2018-03-19 09:37] VITALS: BP 138/75; PULSE 65
--- NOTE | 2018-03-19 15:59 | CP.PCM.PN ---
Subjective - Date & Time of Evaluation Date of Evaluation: 03/19/18 Time of Evaluation: 11:10 - Subjective Subjective: Patient is comfortable, no fevers, no flank pain, no nausea. Objective - Vital Signs/Intake and Output Vital Signs (last 24 hours): Temp Pulse Resp BP Pulse Ox 98.1 F 65 20 138/75 96 03/19/18 06:00 03/19/18 09:32 03/19/18 06:00 03/19/18 09:32 03/19/18 06:00 Intake and Output: 03/19/18 03/19/18 06:59 18:59 Intake Total 740 Output Total 650 Balance 90 - Medications Medications: Current Medications Amlodipine Besylate (Norvasc) 5 mg PO DAILY [facility] Last Admin: 03/19/18 09:32 Dose: 5 mg Ergocalciferol (Drisdol 50,000 Intl Units Cap) 1 cap PO Q7D [facility] Last Admin: 03/16/18 11:54 Dose: 1 cap Famotidine (Pepcid) 20 mg PO DAILY [facility] Last Admin: 03/19/18 09:32 Dose: 20 mg Meropenem 250 mg/ Sodium (Chloride) 100 mls @ 100 mls/hr IVPB Q12H [facility] PRN Reason: Protocol Stop: 03/21/18 11:16 Last Admin: 03/18/18 22:16 Dose: 100 mls/hr Metoprolol Tartrate (Lopressor) 50 mg PO BID [facility] Last Admin: 03/19/18 09:32 Dose: 50 mg Rivaroxaban (Xarelto) 15 mg PO DAILY [facility] PRN Reason: Protocol Last Admin: 03/19/18 09:32 Dose: 15 mg Sevelamer HCl (Renagel) 800 mg PO ACTID [facility] Last Admin: 03/19/18 09:32 Dose: 800 mg Sodium Bicarbonate (Sodium Bicarbonate Tab) 650 mg PO TID [facility] Last Admin: 03/19/18 09:32 Dose: 650 mg - Labs Labs: 03/19/18 06:15 03/19/18 06:15 PT 13.0 SECONDS (9.4-12.5) H 03/12/18 09:30 INR 1.13 (0.93-1.08) H 03/12/18 09:30 APTT 30.5 Seconds (25.1-36.5) 03/12/18 09:30 - Constitutional Appears: Non-toxic, Chronically Ill - Head Exam Head Exam: NORMAL INSPECTION - Respiratory Exam Respiratory Exam: Decreased Breath Sounds - Cardiovascular Exam Cardiovascular Exam: +S1, +S2 - GI/Abdominal Exam GI & Abdominal Exam: Soft. absent: Tenderness Assessment and Plan - Assessment and Plan (Free Text) Plan: Assessment consider right sided pyelonephritis associated with nephrolithiasis, growing Klebsiella and Morganella history of right middle lobe pneumonia history of cystitis with right sided hydronephrosis; E. faecium found in the urine history of Enterococcus urinary tract infection history of severe sepsis secondary to Morganella urinary tract infection history of Clostridium difficile diarrhea DM HTN CAD Atrial fibrillation History of vertebral osteomyelitis Plan continue Merrem day 7 to complete 10-14 days of antibiotics; can switch to Ertapenem to complete therapy discussed with Dr. Frost
--- NOTE | 2018-03-19 16:20 | PN ---
DATE: 03/19/2018 SUBJECTIVE: The patient is seen lying in bed, appears awake. He is alert. He is comfortable. PHYSICAL EXAMINATION GENERAL: Elderly male sitting in chair. VITAL SIGNS: Blood pressure 138/65, heart rate 65, respiratory rate 20, temperature 98.1. HEENT: Normocephalic, atraumatic, positive pallor. NECK: Supple, no JVD. LUNGS: Bilateral equal air entry, bilateral equal expansion, no rales. CARDIAC: S1 and S2, regular rate and rhythm, no murmur, no rub. ABDOMEN: Obese, distended, soft, nontender, bowel sounds present. EXTREMITIES: No lower extremity edema. INTAKE AND OUTPUT: 1520/650. LABORATORY DATA: Hemoglobin 10. Sodium 145, potassium 4.8, chloride 115, CO2 of 19, BUN 63, creatinine 3.7, glucose 91, calcium 8, phosphorus 4.3, magnesium 1.7, albumin 3.3. Renal scan, splint function right kidney 18%, left kidney 82%. CURRENT MEDICATIONS: Drisdol, Lopressor 50 b.i.d., meropenem 250 every 12 hours, amlodipine 5, Pepcid 20, Renagel 800 with meals, sodium bicarbonate 650 t.i.d., Xarelto. ASSESSMENT: 1. Resolved acute kidney injury, stable chronic kidney disease stage IV. 2. Recurrent urinary tract infection, this time Enterococcus as outpatient and Klebsiella as inpatient plus Morganella. 3. Right hydronephrotic kidney with staghorn calculus, now only showing 18% of the split renal function. 4. Hypertension. 5. History of paraspinal abscess. 6. Anemia of chronic disease. PLAN: 1. Definitive treatment for this hydronephrotic right kidney with staghorn calculus with recurrent UTI and minimal function is possibly right nephrectomy. 2. Continue antibiotics as per ID recommendations. 3. Renal function is down to baseline. 4. No objection to discharge with antibiotics to be given at home or in the outpatient transition unit. Ana Ochoa MD
== END 2018-03-19 15:32 | disposition home or self-care (01) | DRG 682 ==
LOC: ED 08:45 → ERH 10:16 → 5RNO 12:59
PROVIDERS: ADMIT Internal Medicine; ATTEND Internal Medicine
PROC: 05HY33Z Insertion of Infusion Device into Upper Vein, Percutaneous Approach (ICD-10-PCS; principal; 2018-03-16)
DX: N17.9 Acute kidney failure, unspecified (principal); K68.12 Psoas muscle abscess; E87.0 Hyperosmolality and hypernatremia; E87.2 Acidosis; I13.2 Hypertensive heart and chronic kidney disease with heart failure and with stage 5 chronic kidney disease, or end stage renal disease; R78.81 Bacteremia; N30.20 Other chronic cystitis without hematuria; B95.2 Enterococcus as the cause of diseases classified elsewhere; B96.1 Klebsiella pneumoniae [K. pneumoniae] as the cause of diseases classified elsewhere; D63.1 Anemia in chronic kidney disease; E11.22 Type 2 diabetes mellitus with diabetic chronic kidney disease; E11.51 Type 2 diabetes mellitus with diabetic peripheral angiopathy without gangrene; E11.69 Type 2 diabetes mellitus with other specified complication; E55.9 Vitamin D deficiency, unspecified; E87.5 Hyperkalemia; N18.5 Chronic kidney disease, stage 5; I25.10 Atherosclerotic heart disease of native coronary artery without angina pectoris; I48.0 Paroxysmal atrial fibrillation; I50.9 Heart failure, unspecified; J44.9 Chronic obstructive pulmonary disease, unspecified; K43.9 Ventral hernia without obstruction or gangrene; N11.9 Chronic tubulo-interstitial nephritis, unspecified; N13.2 Hydronephrosis with renal and ureteral calculous obstruction; N25.81 Secondary hyperparathyroidism of renal origin; N31.9 Neuromuscular dysfunction of bladder, unspecified; Z79.01 Long term (current) use of anticoagulants; Z79.899 Other long term (current) drug therapy; Z86.73 Personal history of transient ischemic attack (TIA), and cerebral infarction without residual deficits; Z87.440 Personal history of urinary (tract) infections; Z87.442 Personal history of urinary calculi; Z89.411 Acquired absence of right great toe; Z89.412 Acquired absence of left great toe; Z89.422 Acquired absence of other left toe(s); Z95.0 Presence of cardiac pacemaker; Z95.5 Presence of coronary angioplasty implant and graft

== ENCOUNTER 2018-03-25 12:20 | Emergency (ER) | payer MEDICARE, BC ==
[2018-03-25 12:20] VITALS: PULSE 52; BMI 28.3
[2018-03-25 12:23] VITALS: TEMP 97.6
--- NOTE | 2018-03-25 13:21 | ED PDOC ---
Arrival/HPI - General Chief Complaint: Abnormal Labs Time Seen by Provider: 03/25/18 12:45 Historian: Patient - History of Present Illness Narrative History of Present Illness (Text): 03/25/18 12:42 A 67 year old male, whose past medical history includes pyelonephritis and renal stones, presents to the emergency department for further evaluation of elevated potassium level. Patient reports he was recently admitted and discharged 5 days ago for renal injury with kidney stones and acute pyelonephritis. He mentions having last dose of antibiotics provided recently. Patient had a follow-up appointment today for blood work, and was told potassium level is elevated to 6. States was directed to the ER for further evaluation. Patient denies any fever, chills, chest pain, shortness of breath, palpitation, abdominal pain, nausea, vomiting, or any other complaints at this time. pt is here for further eval PMD: Dr. Frost Celery Wrapper: Dr. Vail/Dr. Ochoa Urologist: Dr. Sotelo Time/Duration: Prior to Arrival Symptom Course: Unchanged Activities at Onset: Rest Context: Home Past Medical History - Provider Review Nursing Documentation Reviewed: Yes - Travel History Have you recently traveled outside [place] w/in the past 3 mons?: No - Past History Past History: No Previous - Infectious Disease Hx of Infectious Diseases: None - Tetanus Immunization Tetanus Immunization: Unknown - Cardiac Hx Pacemaker: No - Pulmonary Hx Chronic Obstructive Pulmonary Disease (COPD): Yes - Neurological HX Cerebrovascular Accident: Yes - HEENT Hx HEENT Disorder: Yes (wears glasses) - Renal Hx Renal Failure: Yes - Endocrine/Metabolic Hx Diabetes Mellitus Type 2: Yes - Hematological/Oncological Hx Cancer: No - Integumentary Hx Dermatological Disorder: Yes - Musculoskeletal/Rheumatological Hx Falls: Yes - Gastrointestinal Hx Gastrointestinal Disorders: Yes - Genitourinary/Gynecological Hx Urinary Tract Infection: Yes (recurrent) - Psychiatric Hx Psychophysiologic Disorder: No Hx Substance Use: No - Surgical History Hx Mastectomy: No - Anesthesia Hx Anesthesia Reactions: No Hx Malignant Hyperthermia: No - Suicidal Assessment Feels Threatened In Home Enviroment: No Family/Social History - Physician Review Nursing Documentation Reviewed: Yes Family/Social History: No Known Family HX Smoking Status: Never Smoked Hx Alcohol Use: Yes (3+ BEERS DAILY) Hx Substance Use: No Hx Substance Use Treatment: No Allergies/Home Meds Allergies/Adverse Reactions: Allergies ceftriaxone sodium [From Rocephin] Allergy (Verified 03/25/18 12:28) ITCHING Home Medications: Home Meds Medication Instructions Recorded Confirmed Metoprolol Tartrate [Lopressor] 50 mg PO BID 07/11/16 03/25/18 Sevelamer [Renagel] 800 mg PO ACTID 09/18/16 03/25/18 Famotidine [Pepcid] 20 mg PO DAILY 03/12/18 03/25/18 Furosemide [Lasix] 40 mg PO DAILY 03/12/18 03/25/18 Rivaroxaban [Xarelto] 15 mg PO DAILY 03/12/18 03/25/18 amLODIPine [Norvasc] 5 mg PO DAILY 03/25/18 03/25/18 Review of Systems - Physician Review All systems were reviewed & negative as marked: Yes - Review of Systems Constitutional: absent: Fevers, Night Sweats Eyes: Normal ENT: Normal Respiratory: absent: SOB Cardiovascular: absent: Chest Pain, Palpitations Gastrointestinal: absent: Abdominal Pain, Nausea, Vomiting Genitourinary Male: Normal Musculoskeletal: Normal Skin: Normal Neurological: Normal Endocrine: Normal Hemo/Lymphatic: Normal Psychiatric: Normal Physical Exam - Physical Exam Narrative Physical Exam (Text): 03/25/18 1250 General: alert/awake, GCS = 15, oriented x 3, resting in bed, + comfortable, cooperative, interactive; NAD Head: NC/AT EYE: PERRLA, EOMI, sclera anicteric, no nystagmus, no photophobia; visual field intact b/l Facial: WNL Oral: uvula/tongue are midline, no exudate/lesions, no drooling/stridor, no dysphonia; intact dentitions; moist oral mucosa NECK: intact ROM, no midline tenderness, no nuchal rigidity, no meningeal signs ; no step off Chest: CTA b/l, no w/r/r; no tachypenia, no accessory muscle use noted Chest Wall: no focal tenderness, no gross deformities, no crepitus, no lesions/ rashes noted Cardiac: +S1, +S2, no m/r/r, no tachycardia Abdominal: +BS, soft/nd/nt, well nourished patient; no masses/rebound/guarding/ rigidity; no frankel's sign, no mcburney's point tenderness Extremities: intact ROM, strength 5/5 grossly intact in all limbs, neurovasc intact b/l; + ambulatory; reflex +2/2 BACK: no step off, no midline tenderness, NO crepitus, no gross deformities noted; Intact ROM SKIN: cap refill < 1 sec, no ulcerations, no petechiae, no rashes NEURO: CNII-XII WNL, no facial asymmetries, no slurr speech, oriented x 3 NIH stroke scale ~ 0 Psych: normal insight, normal affect; follows command with ease Vital Signs Reviewed: Yes Vital Signs Temp Pulse Resp BP Pulse Ox 03/25/18 14:30 88 18 134/71 98 03/25/18 12:21 97.6 F 81 16 139/87 99 Temperature: Afebrile Blood Pressure: Normal Pulse: Regular Respiratory Rate: Normal Appearance: Positive for: Well-Appearing, Non-Toxic, Comfortable Pain Distress: None Mental Status: Positive for: Alert and Oriented X 3 - Systems Exam Head: Present: Atraumatic, Normocephalic Medical Decision Making ED Course and Treatment: 03/25/18 12:46 Impression: 67 year old male here for evaluation of elevated potassium level. electrolyte derrangement, will re-check Plan: -- EKG -- Labs -- Reassess and disposition Prior Visits: Notes and results from previous visits were reviewed. Patient was last seen in the emergency department on 03/12/2018 for increased urinary frequency and dysuria, and instructed by PMD for IV abx. Patient was discharged home. pt remained comfortable pt is not in any distress pt is awaiting for his lab results Progress Notes: 03/25/18 13:[address] Frost, who agrees with emergency department management and will continue to monitor patient. 03/25/18 14:15 Dr Frost is at bedside, evaluated patient; pt with stable K, pt can be discharged home with outpt f/u 03/25/18 14:[address] Ochoa, patient's senior control systems engineer, who has been made aware of patient's lab results, and is agreeable with final disposition (discharge home) regarding patient's new potassium level. Will f/u with patient as outpt pt is made aware of his medical results pt is encouraged continued fluids pt will f/u as directed pt will be discharged home Re-evaluation Time: 14:00 Reassessment Condition: Improved - Lab Interpretations Lab Results: 03/25/18 13:20 03/25/18 13:20 Lab Results 03/25/18 13:20: Sodium 145, Potassium 5.5 H, Chloride 111 H, Carbon Dioxide 18 L , Anion Gap 20, BUN 47 H, Creatinine 4.1 H, Est GFR ( Amer) 18, Est GFR ( Non-Af Amer) 15, Random Glucose 85, Calcium 8.0 L, Total Bilirubin 0.2, AST 20, ALT 25, Alkaline Phosphatase 121, Total Protein 8.2, Albumin 4.2, Globulin 4.1, Albumin/Globulin Ratio 1.0 L 03/25/18 13:20: WBC 8.2, RBC 3.94, Hgb 12.1 L, Hct 35.8 L, MCV 90.9, MCH 30.7, MCHC 33.8, RDW 13.5, Plt Count 167, MPV 9.9, Gran % 74.6 H, Lymph % (Auto) 17.2 L, [place] % (Auto) 5.8, Eos % (Auto) 2.2, Baso % (Auto) 0.2, Gran # 6.09, Lymph # (Auto) 1.4, [place] # (Auto) 0.5, Eos # (Auto) 0.2, Baso # (Auto) 0.02 I have reviewed the lab results: Yes Interpretation: Abnormal lab values (chronic abnl elevated BUN/creat) - EKG Interpretation EKG Interpretation (Text): 03/25/18 21:15 NSR at 75 bpm, normal axis, no ectopy, qs in leads III, no st-t changes, NORMAL EKG; unchanged compare with old ekg 11/2017 Interpreted by ED Physician: Yes Type: 12 lead EKG Comparison: Similar to previous EKG - Scribe Statement The provider has reviewed the documentation as recorded by the Joao Guerra Provider Scribe Attestation: All medical record entries made by the Scribe were at my direction and personally dictated by me. I have reviewed the chart and agree that the record accurately reflects my personal performance of the history, physical exam, medical decision making, and the department course for this patient. I have also personally directed, reviewed, and agree with the discharge instructions and disposition. Disposition/Present on Arrival - Present on Arrival Any Indicators Present on Arrival: No History of DVT/PE: Yes History of Uncontrolled Diabetes: Yes Urinary Catheter: No History of Decub. Ulcer: No History Surgical Site Infection Following: None - Disposition Have Diagnosis and Disposition been Completed?: Yes Diagnosis: General medical exam, Hyperkalemia, Renal insufficiency Disposition: HOME/ ROUTINE Disposition Time: 14:17 Patient Plan: Discharge Condition: STABLE Discharge Instructions (ExitCare): Hyperkalemia (DC) Print Language: PORTUGUESE Additional Instructions: Make sure to see your doctor in 1-2 days DRINK PLENTY OF FLUIDS take your medications as prescribed RETURN TO ED IF worse pain, cant breath, persistent vomiting, high fever >101- 102 for hours, altered behavior, slurr speech, facial changes, focal weakness ( arm/leg or both), unable to urinate, heavy/persistent bleeding, passing out, chest pain, or other medical emergencies Referrals: Ana Frost MD [Family Provider] - Follow up with primary Ana Ochoa MD [Staff Provider] - Follow up with primary Forms: [employer] ([place] Citizen)
[2018-03-25 13:34] LABS: BASO # 0.02 K/mm3 (0.0-2.0); BASO % 0.2 % (0.0-3.0); EOS # 0.2 (0.0-0.7); EOS % 2.2 % (1.5-5.0); GRAN # 6.09 (1.4-6.5); GRAN % 74.6 % (50.0-68.0); HEMOGLOBIN 12.1 g/dL (14.0-18.0); LYMPH # 1.4 (1.2-3.4); LYMPH % 17.2 % (22.0-35.0); MEAN CELL VOLUME 90.9 fl (80.0-105.0); MEAN CORPUSCULAR HEMOGLOBIN 30.7 pg (25.0-35.0); MEAN CORPUSCULAR HGB CONC 33.8 g/dl (31.0-37.0); MEAN PLATELET VOLUME 9.9 fl (7.0-11.0); MONO # 0.5 (0.1-0.6); MONO % 5.8 % (1.0-6.0); RBC 3.94 10^6/uL (3.5-6.1); RED CELL DISTRIBUTION WIDTH 13.5 % (11.5-14.5); WHITE BLOOD COUNT 8.2 10^3/ul (4.5-11.0)
[2018-03-25 13:54] LABS: ALBUMIN 4.2 g/dL (3.0-4.8)
[2018-03-25 14:54] VITALS: BP 134/71; PULSE 88; RESP 18; O2SAT 98
--- NOTE | 2018-03-25 16:10 | CARD ---
APPROVED REPORT EKG Measurement Heart [id number] <Conclusion> Normal sinus rhythm with 1st degree AVB Q in 3
== END 2018-03-25 14:30 | disposition home or self-care (01) ==
LOC: ED 12:20
DX: E87.5 Hyperkalemia (principal); N28.9 Disorder of kidney and ureter, unspecified

== ENCOUNTER 2018-10-07 08:47 | Inpatient (IN) | payer MEDICARE, BC ==
[2018-10-07 08:48] VITALS: PULSE 52
--- NOTE | 2018-10-07 09:00 | ED PDOC ---
Arrival/HPI - General Historian: Patient - History of Present Illness Narrative History of Present Illness (Text): 10/07/18 08:59 67M with a pmhx of CAD, CKD, neurogenic bladder, recurrent UTI's, Right Hydronephrosis w/ stones, PVD, DM, colonic fistula, hernia and colostomy, pres ents to the ED after being sent in by his PMD Dr Frost. Pt has a 2 week hx of painless, normal frequency, non-bloody, cloudy urine. Pt contacted Dr Frost regarding the issue and was instructed to come to the ED. Pt has been following up with all recommeded outpt care and has been taking home medications as prescribed. Of note, recent culture at nephro office grew resistant enterococcus. ROS: Pos+ Cloudy Urine, fatigue Neg- Fevers, Chills, Night Sweats, Nausea, Vomiting, Chest Pain, SOB, he maturia, stones in urine, Time/Duration: > week Symptom Onset: Gradual Symptom Course: Unchanged Quality: Other (painless) <Tip Cervantes - Last Filed: 10/07/18 09:31> <Chris Lopez - Last Filed: 10/07/18 10:29> - General Chief Complaint: Male Genitourinary Time Seen by Provider: 10/07/18 08:58 Past Medical History - Provider Review Nursing Documentation Reviewed: Yes - Past History Past History: No Previous - Infectious Disease Hx of Infectious Diseases: None - Tetanus Immunization Tetanus Immunization: Unknown - Cardiac Hx Pacemaker: No - Pulmonary Hx Chronic Obstructive Pulmonary Disease (COPD): Yes - Neurological HX Cerebrovascular Accident: Yes - HEENT Hx HEENT Disorder: Yes (wears glasses) - Renal Hx Renal Failure: Yes - Endocrine/Metabolic Hx Diabetes Mellitus Type 2: Yes - Hematological/Oncological Hx Cancer: No - Integumentary Hx Dermatological Disorder: Yes - Musculoskeletal/Rheumatological Hx Falls: Yes - Gastrointestinal Hx Gastrointestinal Disorders: Yes - Genitourinary/Gynecological Hx Urinary Tract Infection: Yes (recurrent) - Psychiatric Hx Psychophysiologic Disorder: No Hx Substance Use: No - Surgical History Hx Mastectomy: No - Anesthesia Hx Anesthesia Reactions: No Hx Malignant Hyperthermia: No - Suicidal Assessment Feels Threatened In Home Enviroment: No <Tip Cervantes - Last Filed: 10/07/18 09:31> Family/Social History Family/Social History: Unknown Family HX Smoking Status: Never Smoked Hx Alcohol Use: Yes Frequency of alcohol use: Socially Hx Substance Use: No Hx Substance Use Treatment: No <Tip Cervantes - Last Filed: 10/07/18 09:31> Allergies/Home Meds <Tip Cervantes - Last Filed: 10/07/18 09:31> <Chris Lopez - Last Filed: 10/07/18 10:29> Allergies/Adverse Reactions: Allergies ceftriaxone sodium [From Rocephin] Allergy (Verified 10/07/18 08:57) ITCHING Home Medications: Home Meds Medication Instructions Recorded Confirmed Metoprolol Tartrate [Lopressor] 50 mg PO BID 07/11/16 03/25/18 Sevelamer [Renagel] 800 mg PO ACTID 09/18/16 03/25/18 Famotidine [Pepcid] 20 mg PO DAILY 03/12/18 03/25/18 Furosemide [Lasix] 40 mg PO DAILY 03/12/18 03/25/18 Rivaroxaban [Xarelto] 15 mg PO DAILY 03/12/18 03/25/18 amLODIPine [Norvasc] 5 mg PO DAILY 03/25/18 03/25/18 Review of Systems - Physician Review All systems were reviewed & negative as marked: Yes - Review of Systems Constitutional: Fatigue. absent: Fevers, Night Sweats Respiratory: absent: SOB, Cough Cardiovascular: absent: Chest Pain, Edema Gastrointestinal: absent: Abdominal Pain, Diarrhea, Nausea, Vomiting Genitourinary Male: Other (cloudy urines). absent: Frequency, Hematuria Musculoskeletal: absent: Back Pain Neurological: absent: Dizziness Psychiatric: absent: Anxiety, Depression <Tip Cervantes - Last Filed: 10/07/18 09:31> Physical Exam Vital Signs Reviewed: Yes Vital Signs Temp Pulse Resp BP Pulse Ox 10/07/18 08:55 97.8 F 88 18 130/86 96 Temperature: Afebrile Blood Pressure: Normal Pulse: Regular Respiratory Rate: Normal Appearance: Positive for: Non-Toxic Pain Distress: Other (no pain) Mental Status: Positive for: Alert and Oriented X 3 - Systems Exam Head: Present: Atraumatic, Normocephalic Pupils: Present: PERRL Extroacular Muscles: Present: EOMI. No: Gaze Palsy Conjunctiva: Present: Normal Mouth: Present: Moist Mucous Membranes Pharnyx: Present: ERYTHEMA Neck: Present: Normal Range of Motion Respiratory/Chest: Present: Clear to Auscultation. No: Respiratory Distress, Wheezes, Rhonchi Cardiovascular: Present: Normal S1, S2. No: Murmurs Abdomen: No: Tenderness, Distention Back: No: CVA Tenderness Upper Extremity: Present: Normal Inspection. No: Cyanosis, Edema Lower Extremity: Present: Normal Inspection. No: Edema Neurological: Present: GCS=15, CN II-XII Intact, Speech Normal Skin: Present: Warm, Dry, Normal Color Psychiatric: Present: Alert, Oriented x 3 <Tip Cervantes - Last Filed: 10/07/18 09:31> Vital Signs Temp Pulse Resp BP Pulse Ox 10/07/18 08:55 97.8 F 88 18 130/86 96 <Chris Lopez - Last Filed: 10/07/18 10:29> Medical Decision Making ED Course and Treatment: 10/07/18 09:[address] Frost service Consult ID Dr Schuster UC,UA, UO, SMA, CBC, CMP, BC, PT/PTT/INR <Tip Cervantes - Last Filed: 10/07/18 09:31> ED Course and Treatment: 10/07/18 10:16 seen and examined with the resident. Our history and physical exam reveals a gentleman with chronic resistant urinary tract infections and renal insufficiency. Known UTI at this time. Sent to the emergency department for evaluation treatment and admission. - Lab Interpretations Lab Results: 10/07/18 09:40 10/07/18 09:40 Lab Results 10/07/18 09:40: Sodium 138, Potassium 5.4 H, Chloride 110 H, Carbon Dioxide 19 L , Anion Gap 15, BUN 60 H, Creatinine 6.3 H, Est GFR ( Amer) 11, Est GFR (Non-Af Amer) 9, Random Glucose 157 H, Calcium 8.9, Phosphorus 4.4, Magnesium 1.9, Total Bilirubin 0.3, AST 16 L, ALT 9, Alkaline Phosphatase 89, NT-Pro-B Natriuret Pep 9870 H, Total Protein 8.1, Albumin 3.7, Globulin 4.4, Albumin/Globulin Ratio 0.8 L 10/07/18 09:40: Urine Color Yellow, Urine Appearance Turbid, Urine pH 6.0, Ur Specific [place] 1.025, Urine Protein 100 H, Urine Glucose (UA) Negative, Urine Ketones Negative, Urine Blood Large H, Urine Nitrate Negative, Urine Bilirubin Negative, Urine Urobilinogen 0.2, Ur Leukocyte Esterase Large H, Urine RBC 2 - 5 H, Urine WBC Tntc H, Ur Epithelial Cells 0 - 2, Urine Bacteria Many 10/07/18 09:40: PT 13.3 H, INR 1.15, APTT 31.3 10/07/18 09:40: WBC 5.5 D, RBC 3.86, Hgb 11.3 L, Hct 35.3 L, MCV 91.5, MCH 29.3, MCHC 32.0, RDW 14.0, Plt Count 166, MPV 9.1, Gran % 71.3 H, Lymph % (Auto) 18.3 L, [place] % (Auto) 7.6 H, Eos % (Auto) 2.4, Baso % (Auto) 0.4, Gran # 3.94, Lymph # (Auto) 1.0 L, [place] # (Auto) 0.4, Eos # (Auto) 0.1, Baso # (Auto) 0.02 <Chris Lopez - Last Filed: 10/07/18 10:29> Disposition/Present on Arrival - Present on Arrival Any Indicators Present on Arrival: No History of DVT/PE: Yes History of Uncontrolled Diabetes: Yes Urinary Catheter: No History of Decub. Ulcer: No History Surgical Site Infection Following: None - Disposition Have Diagnosis and Disposition been Completed?: Yes Disposition Time: 09:49 Patient Plan: Admission (Dr Frost Service) <Tip Cervantes - Last Filed: 10/07/18 09:31> - Present on Arrival Any Indicators Present on Arrival: No History of DVT/PE: Yes History of Uncontrolled Diabetes: Yes Urinary Catheter: No History of Decub. Ulcer: No - Disposition Have Diagnosis and Disposition been Completed?: Yes Patient Plan: Observation <Chris Lopez - Last Filed: 10/07/18 10:29> - Disposition Diagnosis: UTI (urinary tract infection), Renal insufficiency, Hyperkalemia Disposition: HOSPITALIZED Patient Problems: Current Active Problems Problem Status Onset Urinary tract infection Acute Condition: FAIR Forms: [employer] ([place])
[2018-10-07 09:50] LABS: URINE BILIRUBIN NEGATIVE (NEGATIVE); URINE BLOOD LARGE (NEGATIVE); URINE GLUCOSE (UA) NEGATIVE (NEGATIVE); URINE LEUKOCYTE ESTERASE LARGE Leu/uL (NEGATIVE); URINE PROTEIN 100 mg/dL (<30 mg/dL); URINE UROBILINOGEN 0.2 E.U./dL (<1 E.U./dL)
[2018-10-07 09:51] LABS: URINE APPEARANCE TURBID (CLEAR); URINE COLOR YELLOW (YELLOW)
[2018-10-07 09:52] LABS: BASO # 0.02 K/mm3 (0.0-2.0); BASO % 0.4 % (0.0-3.0); EOS # 0.1 (0.0-0.7); EOS % 2.4 % (1.5-5.0); GRAN # 3.94 (1.4-6.5); GRAN % 71.3 % (50.0-68.0); HEMOGLOBIN 11.3 g/dL (14.0-18.0); LYMPH % 18.3 % (22.0-35.0); MEAN CELL VOLUME 91.5 fl (80.0-105.0); MEAN CORPUSCULAR HEMOGLOBIN 29.3 pg (25.0-35.0); MEAN PLATELET VOLUME 9.1 fl (7.0-11.0); MONO # 0.4 (0.1-0.6); MONO % 7.6 % (1.0-6.0); RBC 3.86 10^6/uL (3.5-6.1); WHITE BLOOD COUNT 5.5 10^3/uL (4.5-11.0)
[2018-10-07 09:58] LABS: INR 1.15; PARTIAL THROMBOPLASTIN TIME 31.3 Seconds (25.1-36.5); PROTHROMBIN TIME 13.3 SECONDS (9.4-12.5)
[2018-10-07 10:03] LABS: ALB/GLOB RATIO 0.8 (1.1-1.8); ALBUMIN 3.7 g/dL (3.0-4.8); CALCIUM 8.9 mg/dL (8.4-10.5); URINE WBC TNTC /hpf (0-6)
[2018-10-07 10:04] LABS: URINE BACTERIA MANY /hpf; URINE EPITHELIAL CELLS 0 - 2 /hpf (0-5)
[2018-10-07] MEDS ORDERED: Sod Polystyrene Sulf 15 gm/60 ml Susp PO STA (10:28)
[2018-10-07] MEDS ORDERED: Sodium Chloride 0.45% 1,000 ML IV SCH (13:45)
--- NOTE | 2018-10-07 14:06 | HP ---
DATE OF EXAM: 10/07/2018 HISTORY OF PRESENT ILLNESS: This is a 67-year-old male with a history of fever and chills in the past with urinary symptoms referred to [place] emergency room for further evaluation.Referred by Nephrology with worsening renal function PAST MEDICAL HISTORY: The patient has a past medical history of right hydronephrosis, renal stones, neurogenic bladder chronic renal disease, hyperkalemia, coronary artery disease, hyperlipidemia, remote history of surgery for peripheral vascular disease of his feet, remote history of surgery a sacral rectal fistula, history of urosepsis, history of cystitis, colostomy hernia, altered mental status, cellulitis, osteomyelitis, atrial flutter and abdominal abscess. SOCIAL HISTORY: Nonsmoker, nondrinker, non drug user. ALLERGIES: TO ROCEPHIN. HOME MEDICATIONS: Consist of Drisdol 50,000 units every 7 days, Pepcid 20 mg daily, Lasix 40 mg daily and Lopressor 50 mg twice daily., Renagel 800 mg a.c. 3 times daily, sodium bicarb 650 mg 3 times daily and Norvasc 5 mg daily. REVIEW OF SYSTEMS: Ten systems are reviewed. Pertinent findings as noted during the physical exam. PHYSICAL EXAMINATION: VITAL SIGNS: Her temperature is 97.8, pulse is 88, blood pressure is 130/86, respiratory rate is 18, oxygen sat is 96% on room air. GENERAL: Patient is alert and oriented x3. NECK: Supple. LUNGS: Clear. Diminished breath sounds at the bases. HEART: S1, S2. ABDOMEN: Shows evidence of his colostomy abdominal wall hernia. EXTREMITIES: Show no evidence of edema. LABORATORY DATA: Shows a WBC of 5.5, RBC 3.86, hemoglobin 11.3, hematocrit 35.3, platelet count is 166. PT is 13.3, INR is 1.15, PTT is 31.3. Chemistry shows sodium 138, potassium 5.4, chloride is 110, CO2 is 29, BUN is 60, creatinine is 6.3. Random blood sugar is 157. Serum osmolality is 310. LFTs are normal. His AST is 16. His BNP is 9870. Urinalysis shows many bacteria with large leukocyte esterase, too numerous to count WBCs, large amount of blood. IMPRESSION: 1. A 67-year-old male with dysuria, remote history of fever and chills, must rule out urosepsis. 2. Neurogenic bladder. 3. Acute renal insufficiency P:Panculture IV antibiotics Infectious and Renal consults Ana Frost MD GUILL[facility]MO
--- NOTE | 2018-10-07 14:23 | CP.PCM.CON ---
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 Patient was found to have resistant Enterobacter on culture. Patient was advised to come into the hospital for IV antibiotics as per his PMD. Patient admits to having cloudy urine as well as increased frequency. Otherwise, patient does not have any complaints. Patient is compliant with his medication. Denies chest pain, shortness of breath, nausea, v omiting, diarrhea, fever, chills. Medical Hx: As above Family Hx: Noncontributoy Surgical Hx: Colostomy Social Hx: Former smoker, denies alcohol or illicit drug use Allergies: CEFTRIAXONE Medications: Reviewed, as per MAR Review of Systems - Review of Systems Review of Systems: 12 point ROS as per HPI, otherwise negative Past Patient History - Infectious Disease Hx of Infectious Diseases: None - Tetanus Immunizations Tetanus Immunization: Unknown - Past Social History Smoking Status: Never Smoked - CARDIAC Hx Cardiac Disorders: Yes (bradyarrythmias, cad, cabg) Hx Cardia Arrhythmia: Yes Hx Pacemaker: No Hx Peripheral Edema: Yes (b/l ankle +1) Hx Peripheral Vascular Disease: Yes Other/Comment: all toes amputated left foot, r ft great toe amputated, multiple vascular procedures - PULMONARY Hx Respiratory Disorders: Yes Hx Chronic Obstructive Pulmonary Disease (COPD): Yes - NEUROLOGICAL Hx Neurological Disorder: Yes HX Cerebrovascular Accident: (pt denies) Other/Comment: pins and needles left foot more than right, P stated "I was in a coma x 4 days, that's what peoble tell me, I have no recollection." - HEENT Hx HEENT Problems: Yes (wears glasses) - RENAL Hx Chronic Kidney Disease: Yes Hx Dialysis: Yes (hd x 1 treatment 06/2016) Hx Kidney Stones: Yes Hx Renal Failure: Yes Other/Comment: had - ENDOCRINE/METABOLIC Hx Endocrine Disorders: Yes Hx Diabetes Mellitus Type 2: Yes - HEMATOLOGICAL/ONCOLOGICAL Hx Blood Disorders: Yes (hyperkalemia) Hx Anemia: Yes (blood transfusions) Other/Comment: clumping platelets - INTEGUMENTARY Hx Dermatological Problems: Yes (candidiasis in groin, cystitis) Other/Comment: scratch julián inner rle from scratching, healed surgical scar left knee from sx for muscle tear, healed bedsore scar left buttock/sacrum, pt had sx on bedsore by dr gabby pelayo, r ft hammertoes 2 3 4 5, thick curled toenails, brown discolored skin, discolored skin to left ankle/foot, 2cm x 1cm dry crusty closed wound to ball of left foot, healed surgical scar mid abd from colostomy reversal sx, protruding soft abd hernia developed after colostomy reversal which was about 3 years ago, hx r 4th toe ulcer - MUSCULOSKELETAL/RHEUMATOLOGICAL Hx Musculoskeletal Disorders: Yes Hx Falls: Yes Hx Osteomyelitis: Yes (verterbral 2014) Hx Unsteady Gait: Yes (cane) - GASTROINTESTINAL Hx Gastrointestinal Disorders: Yes Hx Colostomy: Yes (reversed about 3 yrs ago) Hx Diverticulitis: Yes Other/Comment: hx of anal fistula had sx, developed abd hernia after colostomy reversal - GENITOURINARY/GYNECOLOGICAL Hx Genitourinary Disorders: Yes Hx Urinary Tract Infection: Yes (recurrent) Other/Comment: neurogenic bladder no longer needs to self catherize himself - PSYCHIATRIC Hx Psychophysiologic Disorder: No - SURGICAL HISTORY Hx Surgeries: Yes Hx Amputation: Yes (all toes left ft, great toe r ft) Hx Cardiac Catheterization: Yes Hx Mastectomy: No Hx Orthopedic Surgery: Yes (left knee for muscle tear) Other/Comment: multiple vascular procedures and leg stents, colostomy with reversal about 3 yrs ago, tonsillectomy, anal fistula - ANESTHESIA Hx Anesthesia Reactions: No Hx Malignant Hyperthermia: No Meds Allergies/Adverse Reactions: Allergies Allergy/AdvReac Type Severity Reaction Status Date / Time ceftriaxone sodium Allergy ITCHING Verified 10/07/18 08:57 [From Rocephin] - Medications Medications: Current Medications Amlodipine Besylate (Norvasc) 5 mg PO DAILY [facility] Ergocalciferol (Drisdol 50,000 Intl Units Cap) 1 cap PO Q7D [facility] Famotidine (Pepcid) 20 mg PO DAILY [facility] Last Admin: 10/07/18 13:12 Dose: 20 mg Furosemide (Lasix) 40 mg PO DAILY [facility] Sodium Chloride (Sodium Chloride 0.45%) 1,000 mls @ 60 mls/hr IV .[id number] [facility] Stop: 12/20/18 06:24 Metoprolol Tartrate (Lopressor) 50 mg PO BID [facility] Sevelamer HCl (Renagel) 800 mg PO ACTID [facility] Sodium Bicarbonate (Sodium Bicarbonate Tab) 650 mg PO TID [facility] Last Admin: 10/07/18 13:12 Dose: 650 mg Physical Exam - Constitutional Appears: Non-toxic, No Acute Distress - Head Exam Head Exam: ATRAUMATIC, NORMAL INSPECTION, NORMOCEPHALIC - Eye Exam Eye Exam: EOMI, Normal appearance - ENT Exam ENT Exam: Mucous Membranes Moist, Normal Exam - Respiratory Exam Respiratory Exam: Clear to Auscultation Bilateral, NORMAL BREATHING PATTERN. absent: Rales, Rhonchi, Wheezes - Cardiovascular Exam Cardiovascular Exam: RRR, +S1, +S2 - GI/Abdominal Exam GI & Abdominal Exam: Normal Bowel Sounds, Soft. absent: Tenderness - Extremities Exam Extremities exam: Positive for: normal inspection. Negative for: pedal edema - Neurological Exam Neurological exam: Alert, CN II-XII Intact, Oriented x3 - Psychiatric Exam Psychiatric exam: Normal Affect, Normal Mood - Skin Skin Exam: Intact, Normal Color, Warm Results - Vital Signs Recent Vital Signs: Last Vital Signs Temp 97.8 F 10/07/18 12:25 Pulse 72 10/07/18 12:25 Resp 18 10/07/18 12:25 BP 133/82 10/07/18 12:25 Pulse Ox 98 10/07/18 12:25 - Labs Result Diagrams: 10/07/18 09:40 10/07/18 09:40 Labs: Laboratory Results - last 24 hr 10/07/18 10/07/18 10/07/18 09:40 09:40 09:40 WBC 5.5 D RBC 3.86 Hgb 11.3 L Hct 35.3 L MCV 91.5 MCH 29.3 MCHC 32.0 RDW 14.0 Plt Count 166 MPV 9.1 Gran % 71.3 H Lymph % (Auto) 18.3 L Dane % (Auto) 7.6 H Eos % (Auto) 2.4 Baso % (Auto) 0.4 Gran # 3.94 Lymph # (Auto) 1.0 L Dane # (Auto) 0.4 Eos # (Auto) 0.1 Baso # (Auto) 0.02 PT 13.3 H INR 1.15 APTT 31.3 Sodium Potassium Chloride Carbon Dioxide Anion Gap BUN Creatinine Est GFR ( Amer) Est GFR (Non-Af Amer) Random Glucose Serum Osmolality Calcium Phosphorus Magnesium Total Bilirubin AST ALT Alkaline Phosphatase NT-Pro-B Natriuret Pep Total Protein Albumin Globulin Albumin/Globulin Ratio Urine Color Yellow Urine Appearance Turbid Urine pH 6.0 Ur Specific [place] 1.025 Urine Protein 100 H Urine Glucose (UA) Negative Urine Ketones Negative Urine Blood Large H Urine Nitrate Negative Urine Bilirubin Negative Urine Urobilinogen 0.2 Ur Leukocyte Esterase Large H Urine RBC 2 - 5 H Urine WBC Tntc H Ur Epithelial Cells 0 - 2 Urine Bacteria Many Urine Osmolality 10/07/18 10/07/18 10/07/18 09:40 09:40 09:40 WBC RBC Hgb Hct MCV MCH MCHC RDW Plt Count MPV Gran % Lymph % (Auto) Dane % (Auto) Eos % (Auto) Baso % (Auto) Gran # Lymph # (Auto) Dane # (Auto) Eos # (Auto) Baso # (Auto) PT INR APTT Sodium 138 Potassium 5.4 H Chloride 110 H Carbon Dioxide 19 L Anion Gap 15 BUN 60 H Creatinine 6.3 H Est GFR ( Amer) 11 Est GFR (Non-Af Amer) 9 Random Glucose 157 H Serum Osmolality 310 H Calcium 8.9 Phosphorus 4.4 Magnesium 1.9 Total Bilirubin 0.3 AST 16 L ALT 9 Alkaline Phosphatase 89 NT-Pro-B Natriuret Pep 9870 H Total Protein 8.1 Albumin 3.7 Globulin 4.4 Albumin/Globulin Ratio 0.8 L Urine Color Urine Appearance Urine pH Ur Specific [place] Urine Protein Urine Glucose (UA) Urine Ketones Urine Blood Urine Nitrate Urine Bilirubin Urine Urobilinogen Ur Leukocyte Esterase Urine RBC Urine WBC Ur Epithelial Cells Urine Bacteria Urine Osmolality 363 Assessment & Plan - Assessment and Plan (Free Text) Plan: Resistant Enterobacter UTI Hyperkalemia Hx of CKD stage 5 Hx of HTN Hx of A-fib Hx of MRSA bacteremia Plan Patient will be placed on Merrem for his UTI. Patient is currently hemodynamically stable with no signs of sepsis. We will continue to monitor blood and urine cultures. Patient will also need a renal ultrasound as he has a history of chronic nephrolithiasis. Patient given Kayexalate for his hyperkalemia. Patient will be continued on his home medications and monitored closely. Bairon, PGY-3 <David Schusterelena Mirzalorenzo S - Last Filed: 10/07/18 16:44> Meds - Medications Medications: Current Medications Amlodipine Besylate (Norvasc) 5 mg PO DAILY [facility] Ergocalciferol (Drisdol 50,000 Intl Units Cap) 1 cap PO Q7D [facility] Famotidine (Pepcid) 20 mg PO DAILY [facility] Last Admin: 10/07/18 13:12 Dose: 20 mg Furosemide (Lasix) 40 mg PO DAILY [facility] Sodium Chloride (Sodium Chloride 0.45%) 1,000 mls @ 60 mls/hr IV .[id number] [facility] Stop: 10/08/18 06:24 Last Admin: 10/07/18 15:19 Dose: 60 mls/hr Metoprolol Tartrate (Lopressor) 50 mg PO BID [facility] Sevelamer HCl (Renagel) 800 mg PO ACTID [facility] Sodium Bicarbonate (Sodium Bicarbonate Tab) 650 mg PO TID [facility] Last Admin: 10/07/18 13:12 Dose: 650 mg Results - Vital Signs Recent Vital Signs: Last Vital Signs Temp 97.8 F 10/07/18 12:25 Pulse 81 10/07/18 14:09 Resp 18 10/07/18 14:09 BP 133/82 10/07/18 12:25 Pulse Ox 98 10/07/18 12:25 - Labs Result Diagrams: 10/07/18 09:40 10/07/18 15:30 Labs: Laboratory Results - last 24 hr 10/07/18 10/07/18 10/07/18 09:40 09:40 09:40 WBC 5.5 D RBC 3.86 Hgb 11.3 L Hct 35.3 L MCV 91.5 MCH 29.3 MCHC 32.0 RDW 14.0 Plt Count 166 MPV 9.1 Gran % 71.3 H Lymph % (Auto) 18.3 L Dane % (Auto) 7.6 H Eos % (Auto) 2.4 Baso % (Auto) 0.4 Gran # 3.94 Lymph # (Auto) 1.0 L Dane # (Auto) 0.4 Eos # (Auto) 0.1 Baso # (Auto) 0.02 PT 13.3 H INR 1.15 APTT 31.3 Sodium Potassium Chloride Carbon Dioxide Anion Gap BUN Creatinine Est GFR ( Amer) Est GFR (Non-Af Amer) Random Glucose Serum Osmolality Calcium Phosphorus Magnesium Total Bilirubin AST ALT Alkaline Phosphatase NT-Pro-B Natriuret Pep Total Protein Albumin Globulin Albumin/Globulin Ratio Urine Color Yellow Urine Appearance Turbid Urine pH 6.0 Ur Specific [place] 1.025 Urine Protein 100 H Urine Glucose (UA) Negative Urine Ketones Negative Urine Blood Large H Urine Nitrate Negative Urine Bilirubin Negative Urine Urobilinogen 0.2 Ur Leukocyte Esterase Large H Urine RBC 2 - 5 H Urine WBC Tntc H Ur Epithelial Cells 0 - 2 Urine Bacteria Many Urine Osmolality 10/07/18 10/07/18 10/07/18 09:40 09:40 09:40 WBC RBC Hgb Hct MCV MCH MCHC RDW Plt Count MPV Gran % Lymph % (Auto) [place] % (Auto) Eos % (Auto) Baso % (Auto) Gran # Lymph # (Auto) Dane # (Auto) Eos # (Auto) Baso # (Auto) PT INR APTT Sodium 138 Potassium 5.4 H Chloride 110 H Carbon Dioxide 19 L Anion Gap 15 BUN 60 H Creatinine 6.3 H Est GFR ( Amer) 11 Est GFR (Non-Af Amer) 9 Random Glucose 157 H Serum Osmolality 310 H Calcium 8.9 Phosphorus 4.4 Magnesium 1.9 Total Bilirubin 0.3 AST 16 L ALT 9 Alkaline Phosphatase 89 NT-Pro-B Natriuret Pep 9870 H Total Protein 8.1 Albumin 3.7 Globulin 4.4 Albumin/Globulin Ratio 0.8 L Urine Color Urine Appearance Urine pH Ur Specific [place] Urine Protein Urine Glucose (UA) Urine Ketones Urine Blood Urine Nitrate Urine Bilirubin Urine Urobilinogen Ur Leukocyte Esterase Urine RBC Urine WBC Ur Epithelial Cells Urine Bacteria Urine Osmolality 363 10/07/18 15:30 WBC RBC Hgb Hct MCV MCH MCHC RDW Plt Count MPV Gran % Lymph % (Auto) [place] % (Auto) Eos % (Auto) Baso % (Auto) Gran # Lymph # (Auto) [place] # (Auto) Eos # (Auto) Baso # (Auto) PT INR APTT Sodium 138 Potassium 5.5 H Chloride 110 H Carbon Dioxide 20 L Anion Gap 13 BUN 63 H Creatinine 6.2 H Est GFR ( Amer) 11 Est GFR (Non-Af Amer) 9 Random Glucose 101 Serum Osmolality Calcium 8.5 Phosphorus Magnesium Total Bilirubin AST ALT Alkaline Phosphatase NT-Pro-B Natriuret Pep Total Protein Albumin Globulin Albumin/Globulin Ratio Urine Color Urine Appearance Urine pH Ur Specific [place] Urine Protein Urine Glucose (UA) Urine Ketones Urine Blood Urine Nitrate Urine Bilirubin Urine Urobilinogen Ur Leukocyte Esterase Urine RBC Urine WBC Ur Epithelial Cells Urine Bacteria Urine Osmolality Assessment & Plan - Assessment and Plan (Free Text) Plan: Infectious diseases Attending Physician Attestation Patient seen and examined, discussed with medical record assistant. I have reviewed the patient's history of present illness, past medical, social, personal and family histories, pertinent physical exam findings, course so far in this hospital admission, pertinent laboratory and imaging results. I agree with the above findings, assessment and plan. In addition, started Merrem for Complicated UTI with Enterobacter. Follow up URology evaluation for nephrolithiasis. Discussed with Dr. Frost.
[2018-10-07] MEDS ORDERED: Influenza Vaccine 60 mcg/0.5 mL SYR (4YR UP) IM ONE (14:34)
[2018-10-07] MEDS ORDERED: Pneumococcal 23-Valent Vaccine IM ONE (14:34)
--- NOTE | 2018-10-07 14:43 | RAD ---
Date of service: 10/07/2018 HISTORY: R/o CHF COMPARISON: 12/06/2017 TECHNIQUE: Chest PA and lateral FINDINGS: LUNGS: No active pulmonary disease. PLEURA: No significant pleural effusion identified. No pneumothorax apparent. CARDIOVASCULAR: No aortic atherosclerotic calcification present. Normal cardiac size. No pulmonary vascular congestion. OSSEOUS STRUCTURES: No significant abnormalities. VISUALIZED UPPER ABDOMEN: Normal. OTHER FINDINGS: Single lead pacemaker IMPRESSION: No active disease.
--- NOTE | 2018-10-07 15:42 | US ---
Date of service: 10/07/2018 PROCEDURE: HISTORY: evaluate nephrolithiasis COMPARISON: TECHNIQUE: FINDINGS: The right left kidney measure 13.1 and 11.5 centimeters respectively. There is right hydronephrosis with multiple large calculi in the interpolar region and the right lower pole measuring up to 2 centimeters. The renal cortices are homogeneous. IMPRESSION: Right hydronephrosis with multiple right lower pole and renal pelvic calculi.
[2018-10-07 15:47] LABS: CALCIUM 8.5 mg/dL (8.4-10.5)
--- NOTE | 2018-10-07 15:59 | CARD ---
APPROVED REPORT Date of service: 10/07/2018 EKG Measurement Heart [id number] <Conclusion> Sinus rhythm with frequent premature ventricular complexes NSSTW changes
[2018-10-07] MEDS ORDERED: MEROPENEM 500 MG in NS 500 MG/50 ML BAG IVPB SCH (17:00)
--- NOTE | 2018-10-08 03:23 | CON ---
DATE: 10/07/2018 REASON FOR CONSULTATION: Acute kidney injury, hyperkalemia, enterococcal UTI. HISTORY OF PRESENT ILLNESS: 67-year-old male well known to me from multiple hospital evaluations. The patient has a history of chronic kidney disease stage IV/V. The patient complained of dysuria 2 weeks ago. Went to PMD. Urine culture showed multiple organisms. Urine culture was then repeated by Dr. Vail. Was found to have multidrug resistant enterococcus. The patient was advised to come to the emergency room. The patient also was found to have acute kidney injury superimposed on chronic kidney disease stage IV/V. His baseline creatinine is around mid 5. His creatinine durga to 7.0. Today's creatinine is 6.3. He is also found to have elevated potassium of 5.3. The patient denies any nausea or vomiting. He denies any bad taste. Appetite is good. He denies any shortness of breath. PAST MEDICAL AND SURGICAL HISTORY: NIDDM, hypertension, chronic kidney disease stage IV/V, anemia of chronic disease, chronic right hydronephrosis, right staghorn calculus, recurrent UTI, pyelonephritis, diverticulitis, colostomy, colostomy reversal, neurogenic bladder, perirectal abscess. FAMILY HISTORY: Noncontributory. SOCIAL HISTORY: No smoking, no alcohol use, no IV drug abuse. ALLERGIES: CEFTRIAXONE. MEDICATIONS AT HOME: Amlodipine 5, sodium bicarbonate 650, sevelamer 800 t.i.d., Xarelto, Lopressor 50 b.i.d., Lasix 40 daily, Pepcid, Invanz 500 IV daily, vitamin D weekly. REVIEW OF SYSTEMS: All systems are reviewed, pertinent positives are mentioned in history of presenting illness, rest unremarkable. PHYSICAL EXAMINATION GENERAL: Elderly male sitting in bed. VITAL SIGNS: Blood pressure 113/76, heart rate 86, respiratory rate 18, temperature 97.7. HEENT: Normocephalic, atraumatic, positive pallor. NECK: Supple, no JVD. LUNGS: Bilateral equal air entry, bilateral equal expansion, no rales. CARDIAC: S1, S2, regular rate and rhythm, no murmur, no rub. ABDOMEN: Obese, distended, soft, bowel sounds present. EXTREMITIES: No lower extremity edema. LABORATORY DATA: WBC 5.5, hemoglobin 11, hematocrit 35, platelets 166. Sodium 138, potassium 5.5, chloride 110, CO2 of 20, BUN 63, creatinine 6.2, glucose 101. Calcium 8.5, phosphorus 4.4, magnesium 1.9, albumin 3.7. Urinalysis: Yellow, turbid, pH 6.0, specific gravity 1.025, protein 100, blood large, leukocyte esterase large, rbc's 2 to 5, wbc's too numerous to count. Renal ultrasound: Right kidney 13.1 cm, left kidney 11.5 cm, right hydronephrosis with multiple large calculi. ASSESSMENT 1. Acute kidney injury superimposed on chronic kidney disease, stage IV/V. 2. Mild hyperkalemia. 3. Multidrug resistant enterococcal urinary tract infection. 4. Hypertension. 5. Mild anemia. 6. Compensated hyperphosphatemia. 7. Dhm-lndnipu-ddeqdbeqr diabetes mellitus. PLAN 1. Half-normal saline at 60 an hour times 1 liter. 2. Push p.o. fluids. 3. Antibiotics as per ID recommendations. 4. Monitor potassium, no indication for any other intervention at this time. 5. Continue sodium bicarbonate. 6. Monitor urine output. 7. Check labs in a.m. Ana Ochoa MD
[2018-10-08 06:49] LABS: BASO # 0.04 K/mm3 (0.0-2.0); BASO % 0.8 % (0.0-3.0); EOS # 0.1 (0.0-0.7); EOS % 2.8 % (1.5-5.0); GRAN # 3.55 (1.4-6.5); GRAN % 69.6 % (50.0-68.0); HEMOGLOBIN 10.9 g/dL (14.0-18.0); LYMPH % 19.1 % (22.0-35.0); MEAN CELL VOLUME 92.2 fl (80.0-105.0); MEAN CORPUSCULAR HEMOGLOBIN 29.5 pg (25.0-35.0); MEAN PLATELET VOLUME 10.5 fl (7.0-11.0); MONO # 0.4 (0.1-0.6); MONO % 7.7 % (1.0-6.0); RBC 3.7 10^6/uL (3.5-6.1); RED CELL DISTRIBUTION WIDTH 13.9 % (11.5-14.5); WHITE BLOOD COUNT 5.1 10^3/uL (4.5-11.0)
[2018-10-08 08:07] LABS: ALB/GLOB RATIO 0.8 (1.1-1.8); ALBUMIN 3.2 g/dL (3.0-4.8)
[2018-10-08] MEDS: MEROPENEM 500 MG in NS 500 MG/50 ML BAG IVPB SCH (13:18)
--- NOTE | 2018-10-08 13:23 | PN ---
DATE: 10/08/2018 SUBJECTIVE: A 67-year-old male, resting comfortably this morning. Nursing staff relates that there are no particular problems during the night. CURRENT MEDICATIONS: Consist of Drisdol 1 capsule every 7th day, Lasix 40 mg daily, Lopressor 50 mg b.i.d., he is on IV meropenem, Norvasc 5 mg daily, Pepcid 20 mg daily, Renagel 800 mg three times a day before meals, sodium bicarb 650 three times a day. PHYSICAL EXAMINATION: GENERAL: He is alert and oriented x3. VITAL SIGNS: Temperature is 97.5, pulse is 80, blood pressure is 127/90, respiratory rate is 20, oxygen sat is 97% on room air. NECK: Supple. LUNGS: Clear. HEART: Is in S1, S2 rhythm. ABDOMEN: Obese, soft with positive bowel sounds. There is evidence of an abdominal wall hernia from his prior colostomy. EXTREMITIES: Show no evidence of edema. LABORATORY DATA: His labs this morning showed WBC of 5.1, RBC 3.7, hemoglobin 10.9, hematocrit 34.1, platelet count is 139. Chemistry shows a sodium of 139, potassium 4.9, chloride 113, CO2 of 20, the BUN is 61 and the creatinine is 6. His calcium is 8. AST is 13. His albumin level is 3.2. ASSESSMENT: 1. Urinary tract infection with resistant bacteria organism. Placed on meropenem, being followed by Infectious Disease, repeat cultures are pending. 2. Neurogenic bladder. 3. Coronary artery disease. 4. Uek-tivpusq-metxchiwg diabetes. 5. Peripheral vascular disease. 6. Remote history of urosepsis. 7. History of colorectal fistula. 8. Electrocardiogram is showing premature ventricular contractions. PLAN: Currently, the patient will continue on his IV antibiotics. He is being followed by Renal for his acute exacerbation of his underlying chronic kidney disease, he is being followed by Infectious Disease as well, and Cardiology consult has been requested. The patient is aware of current clinical findings at this time. Ana Frost MD
--- NOTE | 2018-10-08 14:29 | CP.PCM.PN ---
<Luis Waddell - Last Filed: 10/08/18 14:26> Subjective - Date & Time of Evaluation Date of Evaluation: 10/08/18 Time of Evaluation: 07:45 - Subjective Subjective: ID progress note Patient with no complaints at this time. Patient is walking around floors comfortably. Denies chest pain, shortness of breath, nausea, vomiting, diarrhea, fever, chill. Objective - Vital Signs/Intake and Output Vital Signs (last 24 hours): Temp Pulse Resp BP Pulse Ox 97.5 F L 81 20 133/75 97 10/08/18 07:59 10/08/18 10:53 10/08/18 07:59 10/08/18 10:53 10/08/18 07:59 Intake and Output: 10/08/18 10/08/18 06:59 18:59 Intake Total 820 Balance 820 - Medications Medications: Current Medications Amlodipine Besylate (Norvasc) 5 mg PO DAILY [facility] Last Admin: 10/08/18 10:53 Dose: 5 mg Ergocalciferol (Drisdol 50,000 Intl Units Cap) 1 cap PO Q7D [facility] Famotidine (Pepcid) 20 mg PO DAILY [facility] Last Admin: 10/08/18 10:53 Dose: 20 mg Furosemide (Lasix) 40 mg PO DAILY [facility] Last Admin: 10/08/18 10:45 Dose: 40 mg Meropenem/Sodium Chloride (Merrem Iv 500 Mg/Ns 50 Ml) 500 mg in 50 mls @ 100 mls/hr IVPB DAILY [facility]; Protocol Stop: 10/14/18 10:01 Last Admin: 10/08/18 13:18 Dose: 100 mls/hr Metoprolol Tartrate (Lopressor) 50 mg PO BID [facility] Last Admin: 10/08/18 10:52 Dose: 50 mg Sevelamer HCl (Renagel) 800 mg PO ACTID [facility] Last Admin: 10/08/18 12:36 Dose: 800 mg Sodium Bicarbonate (Sodium Bicarbonate Tab) 650 mg PO TID [facility] Last Admin: 10/08/18 13:25 Dose: 650 mg - Labs Labs: 10/08/18 06:00 10/08/18 07:30 PT 13.3 SECONDS (9.4-12.5) H 10/07/18 09:40 INR 1.15 10/07/18 09:40 APTT 31.3 Seconds (25.1-36.5) 10/07/18 09:40 - Constitutional Appears: Non-toxic, No Acute Distress - Head Exam Head Exam: ATRAUMATIC, NORMAL INSPECTION, NORMOCEPHALIC - ENT Exam ENT Exam: Mucous Membranes Moist - Respiratory Exam Respiratory Exam: Clear to Ausculation Bilateral, NORMAL BREATHING PATTERN. absent: Rales, Rhonchi, Wheezes - Cardiovascular Exam Cardiovascular Exam: RRR, +S1, +S2 - GI/Abdominal Exam GI & Abdominal Exam: Soft, Normal Bowel Sounds. absent: Tenderness - Extremities Exam Extremities Exam: Normal Inspection. absent: Pedal Edema - Neurological Exam Neurological Exam: Alert, Awake, Oriented x3 - Psychiatric Exam Psychiatric exam: Normal Affect, Normal Mood - Skin Skin Exam: Intact, Normal Color, Warm Assessment and Plan - Assessment and Plan (Free Text) Plan: Resistant Enterobacter UTI Hyperkalemia Hx of CKD stage 5 Hx of HTN Hx of A-fib Hx of MRSA bacteremia Plan Continue Merrem for UTI Urine culture shows preliminary read of gram negative rods Renal US shows right hydronephrosis with renal stones in the pelvis and lower pole Continue to follow cultures closely Bairon, PGY-3 <Danilo Schuster - Last Filed: 10/08/18 22:34> Objective - Vital Signs/Intake and Output Vital Signs (last 24 hours): Temp Pulse Resp BP Pulse Ox 97.6 F 81 18 132/82 98 10/08/18 17:27 10/08/18 18:00 10/08/18 17:27 10/08/18 17:27 10/08/18 17:27 Intake and Output: 10/08/18 10/09/18 18:59 06:59 Intake Total 1450 Balance 1450 - Medications Medications: Current Medications Amlodipine Besylate (Norvasc) 5 mg PO DAILY [facility] Last Admin: 10/08/18 10:53 Dose: 5 mg Ergocalciferol (Drisdol 50,000 Intl Units Cap) 1 cap PO Q7D [facility] Famotidine (Pepcid) 20 mg PO DAILY [facility] Last Admin: 10/08/18 10:53 Dose: 20 mg Furosemide (Lasix) 40 mg PO DAILY [facility] Meropenem/Sodium Chloride (Merrem Iv 500 Mg/Ns 50 Ml) 500 mg in 50 mls @ 100 mls/hr IVPB DAILY [facility]; Protocol Stop: 10/14/18 10:01 Last Admin: 10/08/18 13:18 Dose: 100 mls/hr Metoprolol Tartrate (Lopressor) 50 mg PO BID [facility] Last Admin: 10/08/18 17:24 Dose: 50 mg Sevelamer HCl (Renagel) 800 mg PO ACTID [facility] Last Admin: 10/08/18 17:24 Dose: 800 mg Sodium Bicarbonate (Sodium Bicarbonate Tab) 650 mg PO TID [facility] Last Admin: 10/08/18 17:25 Dose: 650 mg - Labs Labs: 10/08/18 06:00 10/08/18 07:30 PT 13.3 SECONDS (9.4-12.5) H 10/07/18 09:40 INR 1.15 10/07/18 09:40 APTT 31.3 Seconds (25.1-36.5) 10/07/18 09:40 Assessment and Plan - Assessment and Plan (Free Text) Plan: Infectious diseases Attending Physician Attestation Patient seen and examined, discussed with medical examiner. I have reviewed the patient's history of present illness, past medical, social, personal and family histories, pertinent physical exam findings, course so far in this hospital ad mission, pertinent laboratory and imaging results. I agree with the above findings, assessment and plan. In addition, continue Merrem for Enterobacter complicated UTI. Follow up repeat urine cx results. Discussed with Dr. Frost.
--- NOTE | 2018-10-08 15:43 | CP.PCM.APN ---
Subjective - Date & Time of Evaluation Date of Evaluation: 10/08/18 Time of Evaluation: 10:30 - Subjective Subjective: 67M with a pmhx of CAD, CKD, neurogenic bladder, recurrent UTI's, Right Hydronephrosis w/ stones, PVD, DM, colonic fistula, hernia and colostomy, presents to the ED after being sent in by his PMD Dr Frost. Pt has a 2 week hx of painless, normal frequency, non-bloody, cloudy urine. Pt contacted Dr Frost regarding the issue and was instructed to come to the ED, In ED UA was positive, CMP revealed elevated BUN/ Creatinine, patient admitted with UTI and Acute REnal Insufficiency for further workup and treatment. Pt. seen and examined at bedside. Denied dysuria, frequency or pain, denied flank pain, shortness of breath, chest pain, denied hematuria. Review of Systems - Constitutional Constitutional: As Per HPI - EENT Eyes: As Per HPI Ears: As Per HPI Nose/Mouth/Throat: As Per HPI - Cardiovascular Cardiovascular: As Per HPI - Respiratory Respiratory: As Per HPI - Gastrointestinal Gastrointestinal: As Per HPI - Genitourinary Genitourinary: As Per HPI - Reproductive: Male Reproductive:Male: As Per HPI - Musculoskeletal Musculoskeletal: As Per HPI - Integumentary Integumentary: As Per HPI - Neurological Neurological: As Per HPI - Psychiatric Psychiatric: As Per HPI - Endocrine Endocrine: As Per HPI - Hematologic/Lymphatic Hematologic: As Per HPI Objective - Vital Signs/Intake and Output Vital Signs (last 24 hours): Temp Pulse Resp BP Pulse Ox 97.5 F L 81 20 133/75 97 10/08/18 07:59 10/08/18 10:53 10/08/18 07:59 10/08/18 10:53 10/08/18 07:59 Intake and Output: 10/08/18 10/08/18 06:59 18:59 Intake Total 820 Balance 820 - Medications Medications: Current Medications Amlodipine Besylate (Norvasc) 5 mg PO DAILY [facility] Last Admin: 10/08/18 10:53 Dose: 5 mg Ergocalciferol (Drisdol 50,000 Intl Units Cap) 1 cap PO Q7D [facility] Famotidine (Pepcid) 20 mg PO DAILY [facility] Last Admin: 10/08/18 10:53 Dose: 20 mg Furosemide (Lasix) 40 mg PO DAILY [facility] Last Admin: 10/08/18 10:45 Dose: 40 mg Meropenem/Sodium Chloride (Merrem Iv 500 Mg/Ns 50 Ml) 500 mg in 50 mls @ 100 mls/hr IVPB DAILY [facility]; Protocol Stop: 10/14/18 10:01 Last Admin: 10/08/18 13:18 Dose: 100 mls/hr Metoprolol Tartrate (Lopressor) 50 mg PO BID [facility] Last Admin: 10/08/18 10:52 Dose: 50 mg Sevelamer HCl (Renagel) 800 mg PO ACTID [facility] Last Admin: 10/08/18 12:36 Dose: 800 mg Sodium Bicarbonate (Sodium Bicarbonate Tab) 650 mg PO TID [facility] Last Admin: 10/08/18 13:25 Dose: 650 mg - Labs Labs: 10/08/18 06:00 10/08/18 07:30 PT 13.3 SECONDS (9.4-12.5) H 10/07/18 09:40 INR 1.15 10/07/18 09:40 APTT 31.3 Seconds (25.1-36.5) 10/07/18 09:40 - Constitutional Appears: Well, Non-toxic, No Acute Distress - Head Exam Head Exam: NORMAL INSPECTION - Eye Exam Eye Exam: Normal appearance - ENT Exam ENT Exam: Mucous Membranes Moist - Neck Exam Neck Exam: Normal Inspection - Respiratory Exam Respiratory Exam: NORMAL BREATHING PATTERN - Cardiovascular Exam Cardiovascular Exam: REGULAR RHYTHM - GI/Abdominal Exam GI & Abdominal Exam: Soft, Normal Bowel Sounds - Rectal Exam Rectal Exam: Deferred - Extremities Exam Extremities Exam: Full ROM, Normal Inspection - Back Exam Back Exam: Full ROM, NORMAL INSPECTION - Neurological Exam Neurological Exam: Alert, Awake, Normal Gait, Oriented x3 - Skin Skin Exam: Intact, Normal Color, Warm Assessment and Plan - Assessment and Plan (Free Text) Assessment: Radiology Results Chest X-Ray 10/07/18 13:24 IMPRESSION: No active disease. Renal Ultrasound 10/07/18 13:41 IMPRESSION: Right hydronephrosis with multiple right lower pole and renal pelvic calculi. Microbiology 10/07/18 09:40 Urine,Clean Catch Urine Culture - Preliminary Gram Negative Aurelio 10/07/18 11:30 Blood Blood Culture - Preliminary NO GROWTH AFTER 24 HOURS 10/07/18 11:14 Blood Blood Culture - Preliminary NO GROWTH AFTER 24 HOURS ceftriaxone sodium [From Rocephin] Allergy (Verified 10/07/18 08:57) ITCHING Assessment/ Plan: 1. UTI, with recent out patient urine cx positive for Multidrug resistant Enterobacter. Awaiting repeat urine culture, being treated with Merrem Iv as per Infectious disease. 2. Acute Kidney Injury most likely secondary to Right sided hydronephrosis / Multiple renal pelvic calculi. Monitor Is and O's as per nephrology, Trend Bun/ Creatinine, continue Na Bicarbonate PO tid as per renal. 3. EKG abnormality revealed PVCs, patient currently asympotomatic Awaiting cardiac consult, continue to observe. Continue to observe clinical status and monitor closely. Currently awaiting results of urine culture for further recommendation of antibiotic course and cardiology input.
--- NOTE | 2018-10-08 20:39 | PN ---
DATE: 10/08/2018 SUBJECTIVE: The patient is seen lying in bed. He is awake, he is alert, he is comfortable. He denies any pain. He denies any shortness of breath. He denies any nausea or vomiting. He denies any dysuria. PHYSICAL EXAMINATION: GENERAL: elderly male lying in bed. VITAL SIGNS: Blood pressure 133/75, heart rate 81, respiratory rate 20, temperature 97.5. HEENT: Normocephalic, atraumatic, positive pallor. NECK: Supple, no JVD. LUNGS: Bilateral equal air entry, bilateral equal expansion. CARDIAC: S1 and S2, regular rate and rhythm. No murmur, no rub. ABDOMEN: Obese, distended, soft, positive hernia, bowel sounds present. EXTREMITIES: No lower extremity edema. INTAKE AND OUTPUT: Not charted. LABORATORY DATA: WBC 5.1, hemoglobin 10.9, hematocrit 34, platelets 139. Sodium 139, potassium 4.9, chloride 113, CO2 of 20, BUN 61, creatinine 6, glucose 92, calcium 8, phosphorus 4.5. AST 13, ALT 17, albumin 3.2. Urine culture, gram-negative kirti. CURRENT MEDICATIONS: Drisdol, Lasix 40, Lopressor 50 b.i.d., Merrem 500 daily, Norvasc 5, Pepcid 20, Renagel 800 three times a day, sodium bicarbonate 650 t.i.d. ASSESSMENT: 1. Acute kidney injury superimposed on chronic kidney disease, stage IV/V; resolving acute kidney injury. 2. Hyperkalemia, resolved. 3. Enterococcal urinary tract infection. 4. Anemia of chronic kidney disease. 5. Hypertension. 6. [id number]-txflanbem diabetes mellitus. 7. Chronic right hydronephrosis, multiple right kidney stones. 8. Recurrent urinary tract infection. PLAN: 1. Status post 1 liter of IV fluids. 2. Push p.o. fluids. 3. Continue antibiotics as per ID recommendations. 4. No uremic signs or symptoms, no plans for renal replacement therapy right now. 5. Continue phosphate binders. Ana Ochoa MD
[2018-10-09 06:51] LABS: BASO # 0.02 K/mm3 (0.0-2.0); BASO % 0.4 % (0.0-3.0); EOS # 0.2 (0.0-0.7); EOS % 4.2 % (1.5-5.0); GRAN # 2.83 (1.4-6.5); GRAN % 62.1 % (50.0-68.0); HEMOGLOBIN 9.8 g/dL (14.0-18.0); LYMPH % 21.7 % (22.0-35.0); MEAN CELL VOLUME 90.7 fl (80.0-105.0); MEAN CORPUSCULAR HEMOGLOBIN 29.3 pg (25.0-35.0); MEAN CORPUSCULAR HGB CONC 32.2 g/dl (31.0-37.0); MEAN PLATELET VOLUME 9.3 fl (7.0-11.0); MONO # 0.5 (0.1-0.6); MONO % 11.6 % (1.0-6.0); RBC 3.35 10^6/uL (3.5-6.1); RED CELL DISTRIBUTION WIDTH 13.7 % (11.5-14.5); WHITE BLOOD COUNT 4.6 10^3/uL (4.5-11.0)
[2018-10-09 07:05] LABS: CALCIUM 7.8 mg/dL (8.4-10.5)
[2018-10-09 07:52] VITALS: RESP 20
[2018-10-09] MEDS: MEROPENEM 500 MG in NS 500 MG/50 ML BAG IVPB SCH (10:30)
--- NOTE | 2018-10-09 14:06 | CP.PCM.PN ---
Subjective - Date & Time of Evaluation Date of Evaluation: 10/09/18 Time of Evaluation: 09:00 - Subjective Subjective: ID Progress note Patient with no new complaints. Admits to cloudy urine and frequent urination. Denies chest pain, shortness of breath, nausea, vomiting, diarrhea, fever, chills. Objective - Vital Signs/Intake and Output Vital Signs (last 24 hours): Temp Pulse Resp BP Pulse Ox 97.5 F L 80 20 130/80 94 L 10/09/18 07:51 10/09/18 10:25 10/09/18 07:51 10/09/18 10:25 10/09/18 07:51 - Medications Medications: Current Medications Amlodipine Besylate (Norvasc) 5 mg PO DAILY [facility] Last Admin: 10/09/18 10:25 Dose: 5 mg Ergocalciferol (Drisdol 50,000 Intl Units Cap) 1 cap PO Q7D [facility] Famotidine (Pepcid) 20 mg PO DAILY [facility] Last Admin: 10/09/18 10:24 Dose: 20 mg Furosemide (Lasix) 40 mg PO DAILY [facility] Last Admin: 10/09/18 10:23 Dose: 40 mg Meropenem/Sodium Chloride (Merrem Iv 500 Mg/Ns 50 Ml) 500 mg in 50 mls @ 100 mls/hr IVPB DAILY [facility]; Protocol Stop: 10/14/18 10:01 Last Admin: 10/09/18 10:30 Dose: 100 mls/hr Metoprolol Tartrate (Lopressor) 50 mg PO BID [facility] Last Admin: 10/09/18 10:24 Dose: 50 mg Sevelamer HCl (Renagel) 800 mg PO ACTID [facility] Last Admin: 10/09/18 11:52 Dose: 800 mg Sodium Bicarbonate (Sodium Bicarbonate Tab) 650 mg PO TID [facility] Last Admin: 10/09/18 13:39 Dose: 650 mg - Labs Labs: 10/09/18 06:00 10/09/18 06:00 PT 13.3 SECONDS (9.4-12.5) H 10/07/18 09:40 INR 1.15 10/07/18 09:40 APTT 31.3 Seconds (25.1-36.5) 10/07/18 09:40 - Constitutional Appears: Non-toxic, No Acute Distress - Head Exam Head Exam: ATRAUMATIC, NORMAL INSPECTION, NORMOCEPHALIC - ENT Exam ENT Exam: Mucous Membranes Moist - Respiratory Exam Respiratory Exam: Clear to Ausculation Bilateral, NORMAL BREATHING PATTERN - Cardiovascular Exam Cardiovascular Exam: RRR, +S1, +S2 - GI/Abdominal Exam GI & Abdominal Exam: Soft, Normal Bowel Sounds. absent: Tenderness - Extremities Exam Extremities Exam: absent: Pedal Edema - Neurological Exam Neurological Exam: Alert, Awake, Oriented x3 - Psychiatric Exam Psychiatric exam: Normal Affect, Normal Mood - Skin Skin Exam: Intact, Normal Color, Warm Assessment and Plan - Assessment and Plan (Free Text) Plan: Morg Morganii UTI Hx of CKD stage 5 Hx of HTN Hx of A-fib Hx of MRSA bacteremia Plan Continue Merrem for UTI Urine culture shows Morg Morganii Blood cultures negative x 48 hours Renal US shows right hydronephrosis with renal stones in the pelvis and lower pole Continue to follow cultures closely for sensitivities Bairon, PGY-3
[2018-10-09] MEDS ORDERED: Darbepoetin Alfa 60 mcg/ml Inj SC ONE (15:05)
--- NOTE | 2018-10-09 15:48 | CP.PCM.APN ---
Subjective - Date & Time of Evaluation Date of Evaluation: 10/09/18 Time of Evaluation: 11:00 - Subjective Subjective: 67M with a pmhx of CAD, CKD, neurogenic bladder, recurrent UTI's, Right Hydronephrosis w/ stones, PVD, DM, colonic fistula, hernia and colostomy, presents to the ED after being sent in by his PMD Dr Frost. Pt has a 2 week hx of painless, normal frequency, non-bloody, cloudy urine. Pt contacted Dr Frost regarding the issue and was instructed to come to the ED, In ED UA was positive, CMP revealed elevated BUN/ Creatinine, patient admitted with UTI and Acute REnal Insufficiency for further workup and treatment. Pt. seen and examined at bedside. Denied dysuria, frequency or pain, denied flank pain, shortness of breath, chest pain, denied hematuria. Review of Systems - Constitutional Constitutional: As Per HPI - EENT Eyes: As Per HPI Nose/Mouth/Throat: As Per HPI - Cardiovascular Cardiovascular: As Per HPI - Respiratory Respiratory: As Per HPI - Gastrointestinal Gastrointestinal: As Per HPI - Genitourinary Genitourinary: Freq UTI, Hx Renal/Bladder Calculi - Musculoskeletal Musculoskeletal: As Per HPI - Integumentary Integumentary: As Per HPI - Neurological Neurological: As Per HPI - Psychiatric Psychiatric: As Per HPI - Endocrine Endocrine: As Per HPI - Hematologic/Lymphatic Hematologic: As Per HPI Objective - Vital Signs/Intake and Output Vital Signs (last 24 hours): Temp Pulse Resp BP Pulse Ox 97.5 F L 80 20 130/80 94 L 10/09/18 07:51 10/09/18 10:25 10/09/18 07:51 10/09/18 10:25 10/09/18 07:51 - Medications Medications: Current Medications Amlodipine Besylate (Norvasc) 5 mg PO DAILY [facility] Last Admin: 10/09/18 10:25 Dose: 5 mg Ergocalciferol (Drisdol 50,000 Intl Units Cap) 1 cap PO Q7D [facility] Famotidine (Pepcid) 20 mg PO DAILY [facility] Last Admin: 10/09/18 10:24 Dose: 20 mg Furosemide (Lasix) 40 mg PO DAILY [facility] Last Admin: 10/09/18 10:23 Dose: 40 mg Meropenem/Sodium Chloride (Merrem Iv 500 Mg/Ns 50 Ml) 500 mg in 50 mls @ 100 mls/hr IVPB DAILY [facility]; Protocol Stop: 10/14/18 10:01 Last Admin: 10/09/18 10:30 Dose: 100 mls/hr Metoprolol Tartrate (Lopressor) 50 mg PO BID [facility] Last Admin: 10/09/18 10:24 Dose: 50 mg Sevelamer HCl (Renagel) 800 mg PO ACTID [facility] Last Admin: 10/09/18 11:52 Dose: 800 mg Sodium Bicarbonate (Sodium Bicarbonate Tab) 650 mg PO TID [facility] Last Admin: 10/09/18 13:39 Dose: 650 mg - Labs Labs: 10/09/18 06:00 10/09/18 06:00 PT 13.3 SECONDS (9.4-12.5) H 10/07/18 09:40 INR 1.15 10/07/18 09:40 APTT 31.3 Seconds (25.1-36.5) 10/07/18 09:40 - Constitutional Appears: Well, Non-toxic - Head Exam Head Exam: NORMAL INSPECTION - Eye Exam Eye Exam: Normal appearance Pupil Exam: NORMAL ACCOMODATION - ENT Exam ENT Exam: Mucous Membranes Moist - Neck Exam Neck Exam: Full ROM - Respiratory Exam Respiratory Exam: Clear to Ausculation Bilateral, NORMAL BREATHING PATTERN - Cardiovascular Exam Cardiovascular Exam: Irregular Rhythm, +S1, +S2 - GI/Abdominal Exam GI & Abdominal Exam: Soft, Normal Bowel Sounds - Rectal Exam Rectal Exam: Deferred - Back Exam Back Exam: NORMAL INSPECTION - Neurological Exam Neurological Exam: Alert, Awake, Oriented x3 - Skin Skin Exam: Dry, Intact, Normal Color, Warm Assessment and Plan - Assessment and Plan (Free Text) Assessment: Microbiology 10/07/18 11:30 Blood Blood Culture - Preliminary NO GROWTH AFTER 48 HOURS 10/07/18 11:14 Blood Blood Culture - Preliminary NO GROWTH AFTER 48 HOURS 10/07/18 09:40 Urine,Clean Catch Urine Culture - Preliminary Morg Morganii Ss Morganii Assessment: 1. Morg Morganii UTI 2. MAYELA- s/p 1 liter IVF, likely secondary to right hydronephroses, with hx of chronic renal stones. Recommendations as per nephrology, continue to trend Bun/Creatinine Plan Continue Merrem for UTI Urine culture shows Morg Morganii Blood cultures negative x 48 hours Continue to follow cultures closely for sensitivities Continue to monitor clinical status and follow closely.
--- NOTE | 2018-10-09 19:18 | PN ---
DATE: 10/09/2018 SUBJECTIVE: The patient is seen sitting in bed. He is awake and alert, is comfortable. He does not appear to be in any kind of distress. PHYSICAL EXAMINATION: VITAL SIGNS: Blood pressure 130/80, heart rate 80, respiratory rate 16, temperature 98.6. HEENT: Normocephalic, atraumatic, positive pallor. NECK: Supple, no JVD. LUNGS: Bilateral equal entry, bilaterally equal expansion, no rales. CARDIAC: S1, S2, regular rate and rhythm, no murmur, no rub. ABDOMEN: Obese, distended, soft, nontender, bowel sounds present. EXTREMITIES: No lower extremity edema. Intake and output not charted. LABORATORY DATA: WBC 4.6, hemoglobin 9.8, hematocrit 30, platelets 149. Sodium 138, potassium 4.9, chloride 112, CO2 of 20, BUN 67, creatinine 6.1, glucose 95, calcium 7.8. Urine culture are Morganella morganii? CURRENT MEDICATIONS: Drisdol, Lasix, Lopressor, Merrem 500 daily, Norvasc 5, Pepcid 20, sevelamer 800, sodium bicarbonate 650 three times a day. ASSESSMENT: 1. Acute kidney injury superimposed on chronic kidney disease stage IV/V, resolving acute kidney injury. 2. Enterococcal urinary tract infection? 3. Right hydronephrosis, right staghorn calculus. 4. Wtd-zgsujzf-cxkyruocf diabetes mellitus. 5. Anemia of chronic kidney disease. PLAN: 1. Continue antibiotics as per ID recommendations. 2. Follow up urine cultures. 3. Check iron studies. 4. Aranesp 60 mcg today. 5. Push p.o. fluids. 6. No plans for renal replacement therapy. Ana Ochoa MD
--- NOTE | 2018-10-09 22:20 | PN ---
DATE: 10/09/2018 SUBJECTIVE: A 67-year-old male, resting quietly in bed this morning. Nursing staff relates that he had a relatively quiet night, although did show some attempt to get out of bed. PHYSICAL EXAMINATION: VITAL SIGNS: His pulse is 80, blood pressure is 130/80, his temperature is 97.5. NECK: Supple. LUNGS: Clear. HEART: S1 and S2 rhythm. ABDOMEN: Soft with positive bowel sounds. EXTREMITIES: No evidence of edema. LABORATORY DATA: Labs showed a WBC of 4.6, RBC 3.35, hemoglobin 9.8, hematocrit 30.4, platelet count 149. Chemistry shows sodium 138, potassium 4.9, chloride 112, CO2 of 20, BUN is 67, creatinine of 6.1, calcium is 7.8. ASSESSMENT AND PLAN: The patient is currently receiving intravenous meropenem for urinary tract infection with a history of right hydronephrosis and renal stones and neurogenic bladder with a history of frequency and dysuria. He is also on Drisdol, Lasix, Lopressor, Norvasc, Pepcid, Renagel, and sodium bicarbonate. He has chronic renal disease with acute exacerbation of acute renal insufficiency. I have discussed his anemia situation with Renal. They ordered Aranesp. Iron studies have been ordered. We will follow up his complete blood count and chemistry and continue current antibiotics, pending the results of the urine culture. Ana Frost MD
[2018-10-10 06:45] VITALS: BP 136/85; TEMP 97.9; O2SAT 94
[2018-10-10 07:15] LABS: IRON 38 ug/dL (45-180)
[2018-10-10 07:21] LABS: ALB/GLOB RATIO 0.8 (1.1-1.8); ALBUMIN 3.3 g/dL (3.0-4.8)
[2018-10-10 07:24] LABS: % IRON SATURATION 17 % (20-55); TOTAL IRON BINDING CAPACITY 224 ug/dL (261-462)
[2018-10-10 07:28] LABS: HEMOGLOBIN 10.1 g/dL (14.0-18.0); MEAN CELL VOLUME 91.1 fl (80.0-105.0); MEAN CORPUSCULAR HEMOGLOBIN 28.9 pg (25.0-35.0); MEAN CORPUSCULAR HGB CONC 31.7 g/dl (31.0-37.0); MEAN PLATELET VOLUME 9.4 fl (7.0-11.0); RBC 3.5 10^6/uL (3.5-6.1); RED CELL DISTRIBUTION WIDTH 13.8 % (11.5-14.5); WHITE BLOOD COUNT 5.3 10^3/uL (4.5-11.0)
--- NOTE | 2018-10-10 08:48 | PN ---
DATE: 10/10/2018 SUBJECTIVE: The patient is currently seen in 3R lying comfortable in bed. He is complaining that he is in the hospital to receive 1 bag of antibiotics everyday. He would like to go home and receive antibiotic therapy at home preferably oral rather than IV. The patient has absolutely no uremic symptoms despite having a creatinine in the mid 6 range. The patient was scheduled to visit the dialysis unit to attend a pre ESRD class, but the present hospitalization interfered with that plan. MEDICATIONS: Medication list reviewed. The patient is on vitamin D, Lasix, Lopressor, meropenem, Norvasc, Pepcid, Renagel, sodium bicarbonate. He is status post one dose of Aranesp. OBJECTIVE: INTAKE/OUTPUT: Intake 1450, output not charted. VITAL SIGNS: Blood pressure 136/85, temperature 97.9, pulse of 80 with a respiratory rate of 20, pulse ox 94%. HEENT: Shows him to be normocephalic, atraumatic. Conjunctivae are pale. Sclerae nonicteric. NECK: Supple. No neck vein distention. CHEST: Clear to auscultation and percussion. No rales, rhonchi or wheezing. CARDIOVASCULAR: Shows a regular rate and rhythm with a soft systolic murmur left lower sternal border. No S3, no S4, no rub. The patient has a permanent pacemaker in place. ABDOMEN: Soft. Bowel sounds normal. No rebound, guarding or masses. He has a large right lower quadrant nonreducible abdominal wall hernia. EXTREMITIES: Show no lower extremity cyanosis, clubbing or edema. He has diminished lower extremity pulses. BACK: No CVAT. No flank tenderness. LABORATORY DATA AND IMAGING STUDIES: CBC, white blood cell count today 5.3 with a hemoglobin of 10.1, platelet count is 150,000. Chemistries show sodium 138, potassium 5.0, chloride 113 with a CO2 of 19. Anion gap is 11. BUN 66 with creatinine of 6.4. Calcium was 8.0. Last phosphorus was 4.5. Last magnesium level was 1.9. Iron saturations are 17%. Liver enzymes are normal. Albumin level is 3.3. Urines were positive for white blood cells and red blood cells. Microbiology outpatient cultures are positive for Enterobacter. Inpatient cultures so far positive for Morganella morganii. Final sensitivities are pending. Blood cultures are negative at 48 hours. Renal ultrasound shows to continue presence of a right staghorn calculus and right hydronephrosis. Of note during a previous admission, the patient had a split function renal scan which showed the left kidney providing 82% of renal function and right kidney providing 18% of renal function. The patient was to have been evaluated for a possible removal of the staghorn calculus by Dr. Sotelo, but because of high risk this never took place. ASSESSMENT: Progression of renal failure now with chronic kidney disease stage V. The patient has no uremic symptoms. The patient has a plan to start preparing for outpatient dialysis. Post discharge from the hospital, he will attend the predialysis class. He will likely decide to do in in-center dialysis. We will schedule him for an arteriovenous fistula post resolution of his urinary tract infection if indeed that is his wish. At present, the patient has no uremic symptoms as long as we can control his acidosis, his hyperkalemia and he remains asymptomatic. There are no plans to start dialysis during present hospitalization. Recurrent urinary tract infection. Enterobacter in the outpatient culture, Morganella morganii in the inpatient culture. The patient is on IV antibiotic therapy. The patient would like to be able to receive antibiotic therapy at home. He states he is in the hospital to receive a 1/2 hour infusion of antibiotics everyday. Mild metabolic acidosis, status post hyperkalemia. Will continue to monitor his labs. Large right staghorn calculus with likely infected stone fragments seeding the urine. The patient also has chronic right hydronephrosis. The split function renal scan showed 82% of his kidney function coming from the so to speak normal left kidney and only 18% coming from the right kidney. At some point in time, the patient would be a candidate to have a complete right nephrectomy. This would likely take place after he starts dialysis. The risks at this point in time with chronic kidney disease stage V for general anesthesia and a large surgical procedure are great. History of secondary hyperparathyroidism. The patient continues on vitamin D therapy. He remains on binder therapy and on a renal diet. History of hypertension. Blood pressure controlled on present medication. He remains on Norvasc and beta-gino therapy. History of anemia. Iron saturations are low at 17%. I will start the patient on an oral iron supplement. He did receive one dose of Aranesp 60 mcg on 10/09/2018. History of fwg-bwwhpro-jsxhxzkst diabetes mellitus, the patient is off all medication. Sugar control appears to be acceptable. History of peripheral vascular disease status post multiple lower extremity foot surgeries, all stable. History of paraspinal abscess, history of diverticulosis, history of colectomy, colostomy, reversal of colostomy, all appeared to be stable. He does have a large right lower quadrant nonreducible abdominal wall hernia and this is being managed conservatively, no plans for surgery. History of atherosclerotic heart disease with mild valvular heart disease status post permanent pacemaker for bradycardia, all appears to be stable. The patient had been on chronic anticoagulation in the outpatient setting. PLAN: Will discuss with Dr. Frost, discussed with Infectious Disease. Perhaps, the patient can receive antibiotic therapy in the outpatient setting. Await for final culture and sensitivity on the Morganella morganii bacteria. No plans for dialysis during present hospitalization unless the patient becomes uremic or he develops refractory metabolic acidosis or hyperkalemia. Continue Aranesp both in the inpatient and outpatient setting to keep his hemoglobin greater than 10. Agree with iron supplements. Continue present medication for blood pressure control. Continue all dietary restrictions. Discussed with the patient the tentative plan in detail. Bryan Vail MD
[2018-10-10] MEDS: MEROPENEM 500 MG in NS 500 MG/50 ML BAG IVPB SCH (09:00)
[2018-10-10] MEDS ORDERED: Iron Complex Polysacch 150mg Cap PO SCH (10:00)
[2018-10-10 11:22] VITALS: PULSE 84
--- NOTE | 2018-10-10 16:24 | PN ---
DATE: 10/10/2018 SUBJECTIVE: The patient is in bed, in no acute distress. He was seen earlier this morning in room 378, bed 2. The patient is awake and alert, wants to be discharged. His urinary symptoms have resolved. PHYSICAL EXAMINATION: VITAL SIGNS: Temperature is 97, blood pressure is 130/80. HEENT: Unremarkable. NECK: Supple. LUNGS: Have decreased breath sounds. HEART: Normal S1 and S2. ABDOMEN: Soft and nontender. No rebound or guarding. LABORATORY DATA: Reveals the urine culture is positive for Morganella morganii, which is resistant to Cipro, resistant to ampicillin, resistant to cefazolin and nitrofurantoin. ASSESSMENT AND PLAN: A 67-year-old male with resistant Enterobacter urinary tract infection with end-stage kidney disease, hypertension, atrial fibrillation, history of methicillin-resistant Staphylococcus aureus bacteremia and today is day number 4 of meropenem. We will discuss with Dr. Frost. The patient is eager of being discharged today. Joe Bergman MD
[2018-10-11] MEDS ORDERED: Ergocalciferol 50,000 Intl Units Cap PO SCH (10:00)
--- NOTE | 2018-10-12 00:32 | DS ---
HISTORY OF PRESENT ILLNESS: This 67-year-old male with a history of urinary frequency and dysuria was admitted to [facility] for evaluation after it was noted that his urine cultures done by his pipe buffer showed resistant bacteria along with a worsening renal status. While he was in the hospital, the patient was seen by Nephrology and Infectious Disease. He was treated for urinary tract infection. He has a history of right hydronephrosis with renal stones, neurogenic bladder, peripheral vascular disease, coronary artery disease, sinus rhythm with PVCs, history of urosepsis, history of surgery, history of colostomy, history of colostomy site hernia, history of [id number]-tniqknrcb diabetes, history of chronic anemia, history of chronic renal disease. The patient is aware of his renal status and recommendations for education regarding the need for dialysis as will be continued discussion with his pipe buffer. He would receive IV antibiotics and was subsequently cleared by all individual consultants and will be continuing on Drisdol 50,000 units once a week, Ferrex 150 daily, Lasix 40 mg daily, Lopressor 50 b.i.d., Norvasc 5 mg daily, Pepcid 20 mg daily, Renagel 100 mg t.i.d., sodium bicarbonate 650 mg t.i.d. Urine culture by Infectious Disease, he received enough antibiotics and discharged. Ana Frost MD
== END 2018-10-10 11:39 | disposition home or self-care (01) | DRG 683 ==
LOC: ED 08:47 → ERH 10:27 → 3RSO 12:14 → OBSVTOIN 13:18 → 3RSO 10-08 17:00
PROVIDERS: ADMIT Internal Medicine; ATTEND Internal Medicine
DX: N17.9 Acute kidney failure, unspecified (principal); I12.0 Hypertensive chronic kidney disease with stage 5 chronic kidney disease or end stage renal disease; N13.6 Pyonephrosis; N18.5 Chronic kidney disease, stage 5; N31.9 Neuromuscular dysfunction of bladder, unspecified; I25.10 Atherosclerotic heart disease of native coronary artery without angina pectoris; E11.51 Type 2 diabetes mellitus with diabetic peripheral angiopathy without gangrene; E11.22 Type 2 diabetes mellitus with diabetic chronic kidney disease; E87.5 Hyperkalemia; N25.81 Secondary hyperparathyroidism of renal origin; Z16.24 Resistance to multiple antibiotics; B95.2 Enterococcus as the cause of diseases classified elsewhere; D63.1 Anemia in chronic kidney disease; Z79.01 Long term (current) use of anticoagulants; Z79.899 Other long term (current) drug therapy; Z87.440 Personal history of urinary (tract) infections; Z87.891 Personal history of nicotine dependence; Z86.73 Personal history of transient ischemic attack (TIA), and cerebral infarction without residual deficits; Z95.0 Presence of cardiac pacemaker

== ENCOUNTER 2018-12-08 08:38 | Outpatient (CLI) | payer MEDICARE | END 2018-12-08 08:39 | disposition home or self-care (01) | LOC: PAT 08:38 ==

== ENCOUNTER 2018-12-23 10:16 | Inpatient (IN) | payer MEDICARE ==
--- NOTE | 2018-12-23 10:59 | ED PDOC ---
Arrival/HPI - General Chief Complaint: Shortness Of Breath Time Seen by Provider: 12/23/18 10:44 Historian: Patient - History of Present Illness Narrative History of Present Illness (Text): 12/23/18 10:57 68 year old male, whose past medical history includes coronary artery disease, CKD, neurogenic bladder, recurrent UTI's, right hydronephrosis w/ stones, PVD, diabetes, colonic fistula, hernia, and colostomy, presents to the emergency department complaining of rectal bleeding for the past 2 days. Patient states he would find rectal blood without a bowel movement and he notes that it is bright red in color. Patient states he is not in any pain, however he is experiencing associated lightheadedness, fatigue, shortness of breath, and has not eaten in the past 2 days. He denies taking any anticoagulations, previous GI bleed, fevers, chills, headache, dizziness, chest pain, cough, abdominal pain, nausea, vomiting, diarrhea, back pain, neck pain, or any other complaint. PMD: Dr. Frost GI: Dr. Veliz Time/Duration: < week (2 days) Symptom Onset: Sudden Symptom Course: Unchanged Activities at Onset: Light Context: Home Past Medical History - Provider Review Nursing Documentation Reviewed: Yes - Past History Past History: No Previous - Infectious Disease Hx of Infectious Diseases: None - Tetanus Immunization Tetanus Immunization: Unknown - Cardiac Hx Pacemaker: No - Pulmonary Hx Respiratory Disorders: Yes Hx Chronic Obstructive Pulmonary Disease (COPD): Yes - Neurological Hx Paralysis: No - HEENT Hx HEENT Disorder: Yes (wears glasses) - Renal Hx Renal Disorder: Yes Hx Dialysis: Yes (hd x 1 treatment 06/2016) Hx Kidney Stones: Yes Hx Renal Failure: Yes Other/Comment: had - Endocrine/Metabolic Hx Endocrine Disorders: Yes Hx Diabetes Mellitus Type 2: Yes - Hematological/Oncological Hx Blood Transfusions: Yes - Integumentary Hx Dermatological Disorder: Yes (candidiasis in groin, cystitis) Other/Comment: scratch julián inner rle from scratching, healed surgical scar left knee from sx for muscle tear, healed bedsore scar left buttock/sacrum, pt had sx on bedsore by dr gabby pelayo, r ft hammertoes 2 3 4 5, thick curled toenails, brown discolored skin, discolored skin to left ankle/foot, 2cm x 1cm dry crusty closed wound to ball of left foot, healed surgical scar mid abd from colostomy reversal sx, protruding soft abd hernia developed after colostomy reversal which was about 3 years ago, hx r 4th toe ulcer - Musculoskeletal/Rheumatological Hx Musculoskeletal Disorders: Yes - Gastrointestinal Hx Gastrointestinal Disorders: Yes Hx Colostomy: Yes (reversed about 3 yrs ago) Hx Diverticulitis: Yes Other/Comment: hx of anal fistula had sx, developed abd hernia after colostomy reversal - Genitourinary/Gynecological Hx Genitourinary Disorders: Yes Hx Urinary Tract Infection: Yes (recurrent) Other/Comment: neurogenic bladder no longer needs to self catherize himself - Psychiatric Hx Emotional Abuse: No Hx Physical Abuse: No Hx Substance Use: No - Surgical History Hx Amputation: Yes (all toes left ft, great toe r ft) Hx Cardiac Catheterization: Yes Hx Mastectomy: No Hx Orthopedic Surgery: Yes (left knee for muscle tear) Other/Comment: multiple vascular procedures and leg stents, colostomy with reversal about 3 yrs ago, tonsillectomy, anal fistula - Anesthesia Hx Anesthesia Reactions: No Hx Malignant Hyperthermia: No - Suicidal Assessment Feels Threatened In Home Enviroment: No Family/Social History - Physician Review Nursing Documentation Reviewed: Yes Family/Social History: No Known Family HX Smoking Status: Never Smoked Hx Alcohol Use: Yes (occasional beer) Hx Substance Use: No Hx Substance Use Treatment: No Allergies/Home Meds Allergies/Adverse Reactions: Allergies ceftriaxone sodium [From Rocephin] Allergy (Intermediate, Verified 12/23/18 14:22) ITCHING Home Medications: Home Meds Medication Instructions Recorded Confirmed Metoprolol Tartrate [Lopressor] 50 mg PO BID 07/11/16 12/23/18 Sevelamer [Renagel] 800 mg PO ACTID 09/18/16 12/23/18 Famotidine [Pepcid] 20 mg PO DAILY 03/12/18 12/23/18 amLODIPine [Norvasc] 5 mg PO DAILY 03/25/18 12/23/18 Sodium Bicarbonate Tab 650 mg PO WM 10/07/18 12/23/18 Lactobacillus Combination No.8 1 cap PO DAILY 12/08/18 12/23/18 [Adult Probiotic] Multivitamin [Daily Multiple 1 tab PO DAILY 12/08/18 12/23/18 Vitamin] Review of Systems - Physician Review All systems were reviewed & negative as marked: Yes - Review of Systems Constitutional: absent: Fevers Cardiovascular: absent: Chest Pain Physical Exam - Physical Exam Narrative Physical Exam (Text): 12/23/18 10:57 Constitutional: No acute distress. Head: Normocephalic. Atraumatic. Eyes: PERRL. ENT: Moist mucous membranes. Neck: Supple. Cardiovascular: tachycardia Chest: No tenderness. Respiratory: Clear to auscultation bilaterally. GI: Soft. Nontender. Nondistended. interior wall hernia, old surgical scar Back: No CVA tenderness. Musculoskeletal: No tenderness or swelling of extremities. left toes amputations, right foot 1st digit amputation. Skin: No rash. Neurologic: Alert, no focal deficit. Vital Signs Reviewed: Yes Vital Signs Temp Pulse Resp BP Pulse Ox 12/23/18 10:23 98.1 F 148 H 20 101/58 L 100 12/23/18 10:17 98.1 F 148 H 20 101/58 L 100 Temperature: Afebrile Blood Pressure: Hypotensive Pulse: Tachycardic Respiratory Rate: Normal Appearance: Positive for: Well-Appearing, Non-Toxic, Comfortable Pain Distress: None Mental Status: Positive for: Alert and Oriented X 3 Medical Decision Making ED Course and Treatment: 12/23/18 10:58 Impression: 68 year old male who presents to the emergency department complaining of rectal bleed. Plan: -- BBK -- VBG -- EKG -- Labs -- Chest X-ray -- Blood Culture -- Urine Culture -- Urinalysis -- Reassess and disposition Prior Visits: Notes and results from previous visits were reviewed. Progress Notes: EKG reviewed by me, shows: sinus tachycardia 150bpm no ST/T elevations. 12/23/18 11:31 Chest X-ray reviewed by radiologist, shows: IMPRESSION: No active disease. Accepted to ICU. Dr. Frost accepts to his service. - Lab Interpretations I have reviewed the lab results: Yes - RAD Interpretation Radiology Orders: 12/23/18 10:52 CHEST PORTABLE [RAD] Stat [employer] Storywriter: Radiologist - EKG Interpretation Interpreted by ED Physician: Yes Type: 12 lead EKG - Scribe Statement The provider has reviewed the documentation as recorded by the Joao Dugan Provider Scribe Attestation: All medical record entries made by the Scribe were at my direction and personally dictated by me. I have reviewed the chart and agree that the record accurately reflects my personal performance of the history, physical exam, medical decision making, and the department course for this patient. I have also personally directed, reviewed, and agree with the discharge instructions and disposition. Disposition/Present on Arrival - Present on Arrival Any Indicators Present on Arrival: No History of DVT/PE: No History of Uncontrolled Diabetes: No Urinary Catheter: No History of Decub. Ulcer: No History Surgical Site Infection Following: None - Disposition Have Diagnosis and Disposition been Completed?: Yes Diagnosis: Acute renal failure, GI bleed, UTI (urinary tract infection) Disposition: HOSPITALIZED Disposition Time: 12:11 Patient Plan: Admission, ICU Condition: CRITICAL
[2018-12-23 11:18] LABS: BASO # 0.03 K/mm3 (0.0-2.0); BASO % 0.6 % (0.0-3.0); HEMOGLOBIN 12.3 g/dL (14.0-18.0); LYMPH # 0.8 (1.2-3.4); LYMPH % 16.2 % (22.0-35.0); MEAN CELL VOLUME 92.4 fl (80.0-105.0); MEAN CORPUSCULAR HEMOGLOBIN 30.2 pg (25.0-35.0); MEAN CORPUSCULAR HGB CONC 32.7 g/dl (31.0-37.0); MEAN PLATELET VOLUME 10.4 fl (7.0-11.0); MONO # 0.5 (0.1-0.6); MONO % 9.4 % (1.0-6.0); RBC 4.07 10^6/uL (3.5-6.1); RED CELL DISTRIBUTION WIDTH 16.2 % (11.5-14.5); WHITE BLOOD COUNT 5.2 10^3/uL (4.5-11.0)
[2018-12-23 11:27] LABS: INR 1.27; PARTIAL THROMBOPLASTIN TIME 34.9 Seconds (26.9-38.3); PROTHROMBIN TIME 14.4 SECONDS (9.4-12.5)
--- NOTE | 2018-12-23 11:27 | RAD ---
Date of service: 12/23/2018 HISTORY: gi bleed COMPARISON: 10/07/2018 FINDINGS: LUNGS: No active pulmonary disease. PLEURA: No significant pleural effusion identified, no pneumothorax apparent. CARDIOVASCULAR: Mild calcification. Mild tortuosity Normal cardiac size. No pulmonary vascular congestion. OSSEOUS STRUCTURES: No significant abnormalities. VISUALIZED UPPER ABDOMEN: Normal. OTHER FINDINGS: Single lead pacemaker IMPRESSION: No active disease.
[2018-12-23] MEDS ORDERED: Sodium Chloride 0.9% 1,000 ML IV STA ×2 (11:32→15:04)
[2018-12-23 11:33] LABS: VENOUS BLOOD GAS BASE EXCESS -17.1 mmol/L (0.0-2.0); VENOUS BLOOD GAS PO2 24 mm/Hg (30-55)
[2018-12-23 11:37] LABS: ALBUMIN 3.9 g/dL (3.0-4.8); CALCIUM 8.6 mg/dL (8.4-10.5)
[2018-12-23 11:38] LABS: TROPONIN I 0.07 ng/mL
[2018-12-23 11:42] LABS: CK-MB 1.9 ng/mL (0.0-3.6)
[2018-12-23] MEDS ORDERED: Sodium Chloride 0.9% 1,000 ML IV SCH (11:45)
[2018-12-23 12:28] LABS: PH,URINE 6.5 (4.7-8.0); URINE BILIRUBIN NEGATIVE (NEGATIVE); URINE BLOOD LARGE (NEGATIVE); URINE GLUCOSE (UA) 100 mg/dL (NEGATIVE); URINE LEUKOCYTE ESTERASE MODERATE Leu/uL (NEGATIVE); URINE PROTEIN >=300 mg/dL (<30 mg/dL); URINE UROBILINOGEN 0.2 E.U./dL (<1 E.U./dL)
[2018-12-23 12:29] LABS: URINE APPEARANCE CLEAR (CLEAR); URINE COLOR YELLOW (YELLOW)
[2018-12-23] MEDS ORDERED: Ciprofloxacin 400mg/200ml D5W 400 MG/200 ML BAG IVPB STA (12:32)
--- NOTE | 2018-12-23 12:48 | CP.PCM.CON ---
<Robert Morris - Last Filed: 12/23/18 18:10> History of Present Illness - History of Present Illness History of Present Illness: Titus Sunshine is a very pleasant 68-year-old male with extensive past history presenting with GI bleed. He has had bleeding, bright red blood, for 2 days which was precipitated after he had cold-like symptoms. He admits associated lightheadedness, shortness of breath. He denies taking blood thinners, or having abdominal pain, vomiting, hematemesis. on presentation patient was hypotensive and tachycardic. Workup in the emergency department shows hemoglobin at baseline. Past medical history- colonic fistula, hernia, CKD, neurogenic bladder, CAD, PVD, diabetes Past surgical history - colostomy reversal for ongoing rectal problems, rectal fissure repair, toe amputation for osteomyelitis, he has scheduled AV fistula for HD. Family historynoncontributory at this time Social historyoccasional alcohol use, previous smoking history 12 point review of systems negative except for above Past Patient History - Infectious Disease Hx of Infectious Diseases: None - Tetanus Immunizations Tetanus Immunization: Unknown - Past Social History Smoking Status: Never Smoked - CARDIAC Hx Pacemaker: No - PULMONARY Hx Respiratory Disorders: Yes Hx Chronic Obstructive Pulmonary Disease (COPD): Yes - NEUROLOGICAL Hx Paralysis: No - HEENT Hx HEENT Problems: Yes (wears glasses) - RENAL Hx Chronic Kidney Disease: Yes Hx Dialysis: Yes (hd x 1 treatment 06/2016) Hx Kidney Stones: Yes Hx Renal Failure: Yes Other/Comment: had - ENDOCRINE/METABOLIC Hx Endocrine Disorders: Yes Hx Diabetes Mellitus Type 2: Yes - HEMATOLOGICAL/ONCOLOGICAL Hx Blood Transfusions: Yes - INTEGUMENTARY Hx Dermatological Problems: Yes (candidiasis in groin, cystitis) Other/Comment: scratch julián inner rle from scratching, healed surgical scar left knee from sx for muscle tear, healed bedsore scar left buttock/sacrum, pt had sx on bedsore by dr gabby pelayo r hammerto 2 3 4 5, thick curled toenails, brown discolored skin, discolored skin to left ankle/foot, 2cm x 1cm dry crusty closed wound to ball of left foot, healed surgical scar mid abd from colostomy reversal sx, protruding soft abd hernia developed after colostomy reversal which was about 3 years ago, hx r 4th toe ulcer - MUSCULOSKELETAL/RHEUMATOLOGICAL Hx Musculoskeletal Disorders: Yes - GASTROINTESTINAL Hx Gastrointestinal Disorders: Yes Hx Colostomy: Yes (reversed about 3 yrs ago) Hx Diverticulitis: Yes Other/Comment: hx of anal fistula had sx, developed abd hernia after colostomy reversal - GENITOURINARY/GYNECOLOGICAL Hx Genitourinary Disorders: Yes Hx Urinary Tract Infection: Yes (recurrent) Other/Comment: neurogenic bladder no longer needs to self catherize himself - PSYCHIATRIC Hx Emotional Abuse: No Hx Physical Abuse: No Hx Substance Use: No - SURGICAL HISTORY Hx Amputation: Yes (all toes left ft, great toe r ft) Hx Cardiac Catheterization: Yes Hx Mastectomy: No Hx Orthopedic Surgery: Yes (left knee for muscle tear) Other/Comment: multiple vascular procedures and leg stents, colostomy with reversal about 3 yrs ago, tonsillectomy, anal fistula - ANESTHESIA Hx Anesthesia Reactions: No Hx Malignant Hyperthermia: No Meds Allergies/Adverse Reactions: Allergies Allergy/AdvReac Type Severity Reaction Status Date / Time ceftriaxone sodium Allergy Intermediate ITCHING Verified 12/23/18 14:22 [From Rocephin] - Medications Medications: Current Medications Ciprofloxacin (Cipro 400mg/200ml Dsw) 400 mg in 200 mls @ 133.3 mls/hr IVPB STAT STA; Protocol Stop: 12/23/18 14:02 Sodium Bicarbonate 75 meq/ (Sodium Chloride) 1,075 mls @ 80 mls/hr IV .[id number] NESHA Physical Exam - Constitutional Appears: No Acute Distress, Chronically Ill - Head Exam Head Exam: ATRAUMATIC, NORMAL INSPECTION - Eye Exam Eye Exam: EOMI, Normal appearance - ENT Exam ENT Exam: Mucous Membranes Dry - Respiratory Exam Respiratory Exam: Clear to Auscultation Bilateral, NORMAL BREATHING PATTERN - Cardiovascular Exam Cardiovascular Exam: Tachycardia, +S1, +S2, Systolic Murmur - GI/Abdominal Exam GI & Abdominal Exam: Normal Bowel Sounds, Soft. absent: Tenderness - Extremities Exam Extremities exam: Negative for: normal inspection, pedal edema - Neurological Exam Neurological exam: Alert, CN II-XII Intact, Oriented x3 - Psychiatric Exam Psychiatric exam: Normal Affect, Normal Mood - Skin Skin Exam: Normal Color, Warm Results - Vital Signs Recent Vital Signs: Last Vital Signs Temp 98.1 F 12/23/18 10:23 Pulse 148 H 12/23/18 10:23 Resp 20 12/23/18 10:23 BP 101/58 L 12/23/18 10:23 Pulse Ox 100 12/23/18 10:23 - Labs Result Diagrams: 12/23/18 10:40 12/23/18 10:40 Labs: Laboratory Results - last 24 hr 12/23/18 12/23/18 12/23/18 10:40 10:40 10:40 WBC 5.2 RBC 4.07 Hgb 12.3 L Hct 37.6 L MCV 92.4 MCH 30.2 MCHC 32.7 RDW 16.2 H Plt Count 116 L MPV 10.4 Neut % (Auto) 73.8 H Lymph % (Auto) 16.2 L [place] % (Auto) 9.4 H Eos % (Auto) 0.0 L Baso % (Auto) 0.6 Lymph # (Auto) 0.8 L [place] # (Auto) 0.5 Eos # (Auto) 0.0 Baso # (Auto) 0.03 Absolute Neuts (auto) 3.83 PT INR APTT pO2 VBG pH VBG pCO2 VBG HCO3 VBG Total CO2 VBG O2 Sat (Calc) VBG Base Excess VBG Potassium Glucose Lactate FiO2 Crit Value Called To Crit Value Called By Blood Gas Notified Time Sodium 137 Potassium 4.9 Chloride 108 H Carbon Dioxide 14 L Anion Gap 20 BUN 83 H Creatinine 11.3 H* D Est GFR ( Amer) 5 Est GFR (Non-Af Amer) 5 Random Glucose 127 H Calcium 8.6 Phosphorus 7.1 H Magnesium 1.7 Total Bilirubin 0.4 AST 23 ALT 11 Alkaline Phosphatase 67 Total Creatine Kinase 234 H CK-MB (CK-2) 1.9 CK-MB (CK-2) % Cancelled Troponin I 0.07 Total Protein 8.0 Albumin 3.9 Globulin 4.1 Albumin/Globulin Ratio 1.0 L Lipase 276 Venous Blood Potassium Urine Color Urine Appearance Urine pH Ur Specific [place] Urine Protein Urine Glucose (UA) Urine Ketones Urine Blood Urine Nitrate Urine Bilirubin Urine Urobilinogen Ur Leukocyte Esterase Blood Type A POSITIVE Antibody Screen Negative BBK History Checked Patient has bt 12/23/18 12/23/18 12/23/18 10:40 11:20 12:10 WBC RBC Hgb Hct MCV MCH MCHC RDW Plt Count MPV Neut % (Auto) Lymph % (Auto) [place] % (Auto) Eos % (Auto) Baso % (Auto) Lymph # (Auto) [place] # (Auto) Eos # (Auto) Baso # (Auto) Absolute Neuts (auto) PT 14.4 H INR 1.27 APTT 34.9 pO2 24 L VBG pH 7.10 L* VBG pCO2 38.0 L VBG HCO3 11.8 L VBG Total CO2 13.0 L VBG O2 Sat (Calc) 43.4 VBG Base Excess -17.1 L VBG Potassium 5.0 Glucose 136 H Lactate 2.7 H FiO2 21.0 Crit Value Called To Dr harrison Crit Value Called By [id number] Blood Gas Notified Time 1130 Sodium 134.0 Potassium Chloride 108.0 H Carbon Dioxide Anion Gap BUN Creatinine Est GFR ( Amer) Est GFR (Non-Af Amer) Random Glucose Calcium Phosphorus Magnesium Total Bilirubin AST ALT Alkaline Phosphatase Total Creatine Kinase CK-MB (CK-2) CK-MB (CK-2) % Troponin I Total Protein Albumin Globulin Albumin/Globulin Ratio Lipase Venous Blood Potassium 5.0 Urine Color Yellow Urine Appearance Clear Urine pH 6.5 Ur Specific [place] 1.020 Urine Protein >=300 H Urine Glucose (UA) 100 H Urine Ketones Negative Urine Blood Large H Urine Nitrate Negative Urine Bilirubin Negative Urine Urobilinogen 0.2 Ur Leukocyte Esterase Moderate H Blood Type Antibody Screen BBK History Checked Assessment & Plan - Assessment and Plan (Free Text) Assessment: #Hematochezia - DDx: ischemic colitis, diverticular bleed, other mucosal ulceration/lesion, rectal disease #Hypovolemia #Vasculopathy with CAD, diabetes and PVD #CKD with planned AV fistula for dialysis #Chronic rectal disease s/p colostomy reversal PLAN: -Supportive care and fluid resuscitation -Obtain CT abdomen and pelvis with oral contrast -Avoid anticoagulation and NSAIDs -Trend hemoglobin -Consider Abx after CT results, +colonic ischemia -Stool/blood culture -Will consider colonoscopy after CT scan Case discussed with Dr. Veliz, see attestation. - Date & Time Date: 12/23/18 Time: 13:25 <Clifton Veliz V - Last Filed: 12/23/18 22:29> Meds - Medications Medications: Current Medications Dextrose (Dextrose 50% Inj) 0 ml IV STAT PRN; Protocol PRN Reason: Hypoglycemia Protocol Sodium Bicarbonate 75 meq/ (Sodium Chloride) 1,075 mls @ 80 mls/hr IV .[id number] [facility] Last Admin: 12/23/18 17:36 Dose: 80 mls/hr Dextrose (Dextrose 5% In Water 1000 Ml) 1,000 mls @ 0 mls/hr IV .Q0M PRN; Protocol PRN Reason: Hypoglycemia Protocol Meropenem 250 mg/ Sodium (Chloride) 100 mls @ 100 mls/hr IVPB Q12H NESHA; Protocol Stop: 01/01/19 20:31 Last Admin: 12/23/18 20:45 Dose: 100 mls/hr Insulin Human Lispro (Humalog Low) 0 units SC ACHS NSEHA; Protocol Last Admin: 12/23/18 22:11 Dose: Not Given Metoprolol Tartrate (Lopressor) 50 mg PO BID [facility] Last Admin: 12/23/18 17:23 Dose: 50 mg Results - Vital Signs Recent Vital Signs: Last Vital Signs Temp 98.1 F 12/23/18 10:23 Pulse 153 H 12/23/18 18:52 Resp 24 12/23/18 17:00 BP 150/97 H 12/23/18 18:52 Pulse Ox 100 12/23/18 17:00 - Labs Result Diagrams: 12/23/18 22:10 12/23/18 10:40 Labs: Laboratory Results - last 24 hr 12/23/18 12/23/18 12/23/18 10:40 10:40 10:40 WBC 5.2 RBC 4.07 Hgb 12.3 L Hct 37.6 L MCV 92.4 MCH 30.2 MCHC 32.7 RDW 16.2 H Plt Count 116 L MPV 10.4 Neut % (Auto) 73.8 H Lymph % (Auto) 16.2 L [place] % (Auto) 9.4 H Eos % (Auto) 0.0 L Baso % (Auto) 0.6 Lymph # (Auto) 0.8 L [place] # (Auto) 0.5 Eos # (Auto) 0.0 Baso # (Auto) 0.03 Absolute Neuts (auto) 3.83 PT INR APTT pO2 VBG pH VBG pCO2 VBG HCO3 VBG Total CO2 VBG O2 Sat (Calc) VBG Base Excess VBG Potassium Glucose Lactate FiO2 Crit Value Called To Crit Value Called By Blood Gas Notified Time Sodium 137 Potassium 4.9 Chloride 108 H Carbon Dioxide 14 L Anion Gap 20 BUN 83 H Creatinine 11.3 H* D Est GFR ( Amer) 5 Est GFR (Non-Af Amer) 5 POC Glucose (mg/dL) Random Glucose 127 H Calcium 8.6 Phosphorus 7.1 H Magnesium 1.7 Total Bilirubin 0.4 AST 23 ALT 11 Alkaline Phosphatase 67 Total Creatine Kinase 234 H CK-MB (CK-2) 1.9 CK-MB (CK-2) % Cancelled Troponin I 0.07 Total Protein 8.0 Albumin 3.9 Globulin 4.1 Albumin/Globulin Ratio 1.0 L Lipase 276 Venous Blood Potassium Urine Color Urine Appearance Urine pH Ur Specific [place] Urine Protein Urine Glucose (UA) Urine Ketones Urine Blood Urine Nitrate Urine Bilirubin Urine Urobilinogen Ur Leukocyte Esterase Urine RBC Urine WBC Ur Epithelial Cells Amorphous Sediment Urine Bacteria Urine Other Influenza Typ A,B (EIA) Blood Type A POSITIVE Antibody Screen Negative BBK History Checked Patient has bt 12/23/18 12/23/18 12/23/18 10:40 11:20 12:10 WBC RBC Hgb Hct MCV MCH MCHC RDW Plt Count MPV Neut % (Auto) Lymph % (Auto) [place] % (Auto) Eos % (Auto) Baso % (Auto) Lymph # (Auto) [place] # (Auto) Eos # (Auto) Baso # (Auto) Absolute Neuts (auto) PT 14.4 H INR 1.27 APTT 34.9 pO2 24 L VBG pH 7.10 L* VBG pCO2 38.0 L VBG HCO3 11.8 L VBG Total CO2 13.0 L VBG O2 Sat (Calc) 43.4 VBG Base Excess -17.1 L VBG Potassium 5.0 Glucose 136 H Lactate 2.7 H FiO2 21.0 Crit Value Called To Dr harrison Crit Value Called By [id number] Blood Gas Notified Time 1130 Sodium 134.0 Potassium Chloride 108.0 H Carbon Dioxide Anion Gap BUN Creatinine Est GFR ( Amer) Est GFR (Non-Af Amer) POC Glucose (mg/dL) Random Glucose Calcium Phosphorus Magnesium Total Bilirubin AST ALT Alkaline Phosphatase Total Creatine Kinase CK-MB (CK-2) CK-MB (CK-2) % Troponin I Total Protein Albumin Globulin Albumin/Globulin Ratio Lipase Venous Blood Potassium 5.0 Urine Color Yellow Urine Appearance Clear Urine pH 6.5 Ur Specific [place] 1.020 Urine Protein >=300 H Urine Glucose (UA) 100 H Urine Ketones Negative Urine Blood Large H Urine Nitrate Negative Urine Bilirubin Negative Urine Urobilinogen 0.2 Ur Leukocyte Esterase Moderate H Urine RBC Tntc H Urine WBC Tntc H Ur Epithelial Cells None Amorphous Sediment Moderate Urine Bacteria Large Urine Other Uyeast Influenza Typ A,B (EIA) Blood Type Antibody Screen BBK History Checked 12/23/18 12/23/18 12/23/18 14:20 16:09 18:30 WBC RBC Hgb Hct MCV MCH MCHC RDW Plt Count MPV Neut % (Auto) Lymph % (Auto) [place] % (Auto) Eos % (Auto) Baso % (Auto) Lymph # (Auto) [place] # (Auto) Eos # (Auto) Baso # (Auto) Absolute Neuts (auto) PT INR APTT pO2 29 L VBG pH 7.06 L* VBG pCO2 31.0 L VBG HCO3 8.8 L VBG Total CO2 9.8 L VBG O2 Sat (Calc) 76.4 H VBG Base Excess -20.4 L VBG Potassium 3.6 Glucose > 750 H* D Lactate 2.5 H FiO2 21.0 Crit Value Called To Jose harrison md Crit Value Called By Blood Gas Notified Time 1432 Sodium 112.0 L* Potassium Chloride 84.0 L Carbon Dioxide Anion Gap BUN Creatinine Est GFR ( Amer) Est GFR (Non-Af Amer) POC Glucose (mg/dL) 66 Random Glucose Calcium Phosphorus Magnesium Total Bilirubin AST ALT Alkaline Phosphatase Total Creatine Kinase CK-MB (CK-2) CK-MB (CK-2) % Troponin I Total Protein Albumin Globulin Albumin/Globulin Ratio Lipase Venous Blood Potassium 3.6 Urine Color Urine Appearance Urine pH Ur Specific [place] Urine Protein Urine Glucose (UA) Urine Ketones Urine Blood Urine Nitrate Urine Bilirubin Urine Urobilinogen Ur Leukocyte Esterase Urine RBC Urine WBC Ur Epithelial Cells Amorphous Sediment Urine Bacteria Urine Other Influenza Typ A,B (EIA) Negative for flu a/b Blood Type Antibody Screen BBK History Checked 12/23/18 12/23/18 21:17 22:10 WBC 5.4 RBC 3.30 L Hgb 9.8 L D Hct 30.3 L MCV 91.8 MCH 29.7 MCHC 32.3 RDW 16.2 H Plt Count 87 L MPV 9.6 Neut % (Auto) Lymph % (Auto) [place] % (Auto) Eos % (Auto) Baso % (Auto) Lymph # (Auto) [place] # (Auto) Eos # (Auto) Baso # (Auto) Absolute Neuts (auto) PT INR APTT pO2 VBG pH VBG pCO2 VBG HCO3 VBG Total CO2 VBG O2 Sat (Calc) VBG Base Excess VBG Potassium Glucose Lactate FiO2 Crit Value Called To Crit Value Called By Blood Gas Notified Time Sodium Potassium Chloride Carbon Dioxide Anion Gap BUN Creatinine Est GFR ( Amer) Est GFR (Non-Af Amer) POC Glucose (mg/dL) 75 Random Glucose Calcium Phosphorus Magnesium Total Bilirubin AST ALT Alkaline Phosphatase Total Creatine Kinase CK-MB (CK-2) CK-MB (CK-2) % Troponin I Total Protein Albumin Globulin Albumin/Globulin Ratio Lipase Venous Blood Potassium Urine Color Urine Appearance Urine pH Ur Specific [place] Urine Protein Urine Glucose (UA) Urine Ketones Urine Blood Urine Nitrate Urine Bilirubin Urine Urobilinogen Ur Leukocyte Esterase Urine RBC Urine WBC Ur Epithelial Cells Amorphous Sediment Urine Bacteria Urine Other Influenza Typ A,B (EIA) Blood Type Antibody Screen BBK History Checked Attending/Attestation - Attestation I have personally seen and examined this patient.: Yes I have fully participated in the care of the patient.: Yes I have reviewed all pertinent clinical information: Yes Notes (Text): This is an addendum to GI consult report dictated by the GI Fellow. The patient was seen and examined earlier. Medical records, lab studies, imagings were reviewed. Last 24 hours events reviewed. Agreed with the above treatment plan as outlined in GI Fellow 's notes with the addition of the following History of bright red blood per rectum Hemoglobin relatively stable on examination abdomen soft nontender Multiple comorbidities Follow-up hemoglobin CT of the abdomen and pelvis with p.o. contrast History of prior perianal ulceration fistula status post colostomy and reversal Previous colonoscopy report reviewed Thank you very much for allowing us to participate in the care of the patient. We will continue to closely follow his care and suggest further recommendations based on clinical course 12/23/18 22:26
[2018-12-23 12:57] LABS: URINE AMORPHOUS SEDIMENT MODERATE /hpf; URINE BACTERIA LARGE /hpf; URINE RBC TNTC /hpf (0-2); URINE WBC TNTC /hpf (0-6)
--- NOTE | 2018-12-23 13:25 | CP.PCM.CON ---
<ErsatoEarnestined - Last Filed: 12/23/18 14:17> History of Present Illness - History of Present Illness History of Present Illness: Claudia Maurer, PGY1 ICU Consult Note for Dr. Mcbride: CC: Rectal Bleeding x2days ICU Consulted for: tachycardia, GI Bleed Pt is a 68 yo M with pmhx of coronary artery disease, anal fistula, CKD, neurogenic bladder, recurrent UTI's, right hydronephrosis w/ stones, PVD, diabetes, colonic fistula, hernia, and colostomy who presents to the ER for compliant of rectal bleeding x2days. ICU The pt states that 2 days ago he was attempting to have a BM in the AM when he noticed that he had just passed blood without clots and no BMs. Pt then states that he had a recurrence of the urge to have a BM every 2 hours and but then would just have blood per rectum. Pt de scribes that the blood is bright red and denies any clots or dark stool. Pt admits that the last time he had a BM was on Friday and the last time he had BRBPR was this AM. At this time he states that he does have lightheadedness and continues to have BRBPR today but otherwise denies headache, dizziness, weakness, chest pain, palpitations, SOB, cough, hemoptysis, abd pain, n/v, hematemesis c/d, hematochezia or melena, dysuria or hematuria. Pmhx: coronary artery disease, CKD, neurogenic bladder, recurrent UTI's, right hydronephrosis w/ stones, PVD, diabetes, colonic fistula, hernia, and colostomy Pshx: Colostomy, toe amputation for osteo All: Ceftriaxone Soc: Previous smoker, previous etoh abuse, no recent illicit drug abuse Fam Hx: Non-contributory PMD: Dr. Frost Review of Systems - Review of Systems Review of Systems: 12 point ROS reviewed and negative for the pt except for noted in HPI above. Past Patient History - Infectious Disease Hx of Infectious Diseases: None - Tetanus Immunizations Tetanus Immunization: Unknown - Past Social History Smoking Status: Never Smoked - CARDIAC Hx Pacemaker: No - PULMONARY Hx Respiratory Disorders: Yes Hx Chronic Obstructive Pulmonary Disease (COPD): Yes - NEUROLOGICAL Hx Paralysis: No - HEENT Hx HEENT Problems: Yes (wears glasses) - RENAL Hx Chronic Kidney Disease: Yes Hx Dialysis: Yes (hd x 1 treatment 06/2016) Hx Kidney Stones: Yes Hx Renal Failure: Yes Other/Comment: had - ENDOCRINE/METABOLIC Hx Endocrine Disorders: Yes Hx Diabetes Mellitus Type 2: Yes - HEMATOLOGICAL/ONCOLOGICAL Hx Blood Transfusions: Yes - INTEGUMENTARY Hx Dermatological Problems: Yes (candidiasis in groin, cystitis) Other/Comment: scratch julián inner rle from scratching, healed surgical scar left knee from sx for muscle tear, healed bedsore scar left buttock/sacrum, pt had sx on bedsore by dr gabby pelayo, r ft hammertoes 2 3 4 5, thick curled toenails, brown discolored skin, discolored skin to left ankle/foot, 2cm x 1cm dry crusty closed wound to ball of left foot, healed surgical scar mid abd from colostomy reversal sx, protruding soft abd hernia developed after colostomy reversal which was about 3 years ago, hx r 4th toe ulcer - MUSCULOSKELETAL/RHEUMATOLOGICAL Hx Musculoskeletal Disorders: Yes - GASTROINTESTINAL Hx Gastrointestinal Disorders: Yes Hx Colostomy: Yes (reversed about 3 yrs ago) Hx Diverticulitis: Yes Other/Comment: hx of anal fistula had sx, developed abd hernia after colostomy reversal - GENITOURINARY/GYNECOLOGICAL Hx Genitourinary Disorders: Yes Hx Urinary Tract Infection: Yes (recurrent) Other/Comment: neurogenic bladder no longer needs to self catherize himself - PSYCHIATRIC Hx Emotional Abuse: No Hx Physical Abuse: No Hx Substance Use: No - SURGICAL HISTORY Hx Amputation: Yes (all toes left ft, great toe r ft) Hx Cardiac Catheterization: Yes Hx Mastectomy: No Hx Orthopedic Surgery: Yes (left knee for muscle tear) Other/Comment: multiple vascular procedures and leg stents, colostomy with reversal about 3 yrs ago, tonsillectomy, anal fistula - ANESTHESIA Hx Anesthesia Reactions: No Hx Malignant Hyperthermia: No Meds Allergies/Adverse Reactions: Allergies Allergy/AdvReac Type Severity Reaction Status Date / Time ceftriaxone sodium Allergy Intermediate ITCHING Verified 12/23/18 14:22 [From Rocephin] - Medications Medications: Current Medications Ciprofloxacin (Cipro 400mg/200ml Dsw) 400 mg in 200 mls @ 133.3 mls/hr IVPB STAT STA; Protocol Stop: 12/23/18 14:02 Last Admin: 12/23/18 12:58 Dose: 133.3 mls/hr Sodium Bicarbonate 75 meq/ (Sodium Chloride) 1,075 mls @ 80 mls/hr IV .[id number] NESHA Physical Exam - Constitutional Appears: Non-toxic, No Acute Distress - Head Exam Head Exam: ATRAUMATIC, NORMAL INSPECTION, NORMOCEPHALIC - Eye Exam Eye Exam: EOMI, Normal appearance, PERRL Additional comments: Pale conjunctival mucosa - ENT Exam ENT Exam: Mucous Membranes Dry - Respiratory Exam Respiratory Exam: Rhonchi, NORMAL BREATHING PATTERN. absent: Accessory Muscle Use, Rales, Wheezes - Cardiovascular Exam Cardiovascular Exam: RRR, +S1, +S2. absent: Gallop, Rubs - GI/Abdominal Exam GI & Abdominal Exam: Normal Bowel Sounds, Soft. absent: Distended, Firm, Rebound, Rigid, Tenderness - Extremities Exam Extremities exam: Positive for: normal capillary refill, pedal pulses present Additional comments: Pt has toe amputation from osteo on L foot. - Back Exam Back exam: NORMAL INSPECTION. absent: CVA tenderness (L), CVA tenderness (R) - Neurological Exam Neurological exam: Alert, Oriented x3 - Psychiatric Exam Psychiatric exam: Normal Affect, Normal Mood - Skin Skin Exam: Dry, Normal Color, Warm Results - Vital Signs Recent Vital Signs: Last Vital Signs Temp 98.1 F 12/23/18 10:23 Pulse 145 H 12/23/18 12:30 Resp 20 12/23/18 12:30 BP 106/76 12/23/18 12:30 Pulse Ox 100 12/23/18 12:30 - Labs Result Diagrams: 12/23/18 10:40 12/23/18 10:40 Labs: Laboratory Results - last 24 hr 12/23/18 12/23/18 12/23/18 10:40 10:40 10:40 WBC 5.2 RBC 4.07 Hgb 12.3 L Hct 37.6 L MCV 92.4 MCH 30.2 MCHC 32.7 RDW 16.2 H Plt Count 116 L MPV 10.4 Neut % (Auto) 73.8 H Lymph % (Auto) 16.2 L [place] % (Auto) 9.4 H Eos % (Auto) 0.0 L Baso % (Auto) 0.6 Lymph # (Auto) 0.8 L [place] # (Auto) 0.5 Eos # (Auto) 0.0 Baso # (Auto) 0.03 Absolute Neuts (auto) 3.83 PT INR APTT pO2 VBG pH VBG pCO2 VBG HCO3 VBG Total CO2 VBG O2 Sat (Calc) VBG Base Excess VBG Potassium Glucose Lactate FiO2 Crit Value Called To Crit Value Called By Blood Gas Notified Time Sodium 137 Potassium 4.9 Chloride 108 H Carbon Dioxide 14 L Anion Gap 20 BUN 83 H Creatinine 11.3 H* D Est GFR ( Amer) 5 Est GFR (Non-Af Amer) 5 Random Glucose 127 H Calcium 8.6 Phosphorus 7.1 H Magnesium 1.7 Total Bilirubin 0.4 AST 23 ALT 11 Alkaline Phosphatase 67 Total Creatine Kinase 234 H CK-MB (CK-2) 1.9 CK-MB (CK-2) % Cancelled Troponin I 0.07 Total Protein 8.0 Albumin 3.9 Globulin 4.1 Albumin/Globulin Ratio 1.0 L Lipase 276 Venous Blood Potassium Urine Color Urine Appearance Urine pH Ur Specific [place] Urine Protein Urine Glucose (UA) Urine Ketones Urine Blood Urine Nitrate Urine Bilirubin Urine Urobilinogen Ur Leukocyte Esterase Urine RBC Urine WBC Ur Epithelial Cells Amorphous Sediment Urine Bacteria Urine Other Blood Type A POSITIVE Antibody Screen Negative BBK History Checked Patient has bt 12/23/18 12/23/18 12/23/18 10:40 11:20 12:10 WBC RBC Hgb Hct MCV MCH MCHC RDW Plt Count MPV Neut % (Auto) Lymph % (Auto) [place] % (Auto) Eos % (Auto) Baso % (Auto) Lymph # (Auto) [place] # (Auto) Eos # (Auto) Baso # (Auto) Absolute Neuts (auto) PT 14.4 H INR 1.27 APTT 34.9 pO2 24 L VBG pH 7.10 L* VBG pCO2 38.0 L VBG HCO3 11.8 L VBG Total CO2 13.0 L VBG O2 Sat (Calc) 43.4 VBG Base Excess -17.1 L VBG Potassium 5.0 Glucose 136 H Lactate 2.7 H FiO2 21.0 Crit Value Called To Dr harrison Crit Value Called By [id number] Blood Gas Notified Time 1130 Sodium 134.0 Potassium Chloride 108.0 H Carbon Dioxide Anion Gap BUN Creatinine Est GFR ( Amer) Est GFR (Non-Af Amer) Random Glucose Calcium Phosphorus Magnesium Total Bilirubin AST ALT Alkaline Phosphatase Total Creatine Kinase CK-MB (CK-2) CK-MB (CK-2) % Troponin I Total Protein Albumin Globulin Albumin/Globulin Ratio Lipase Venous Blood Potassium 5.0 Urine Color Yellow Urine Appearance Clear Urine pH 6.5 Ur Specific [place] 1.020 Urine Protein >=300 H Urine Glucose (UA) 100 H Urine Ketones Negative Urine Blood Large H Urine Nitrate Negative Urine Bilirubin Negative Urine Urobilinogen 0.2 Ur Leukocyte Esterase Moderate H Urine RBC Tntc H Urine WBC Tntc H Ur Epithelial Cells None Amorphous Sediment Moderate Urine Bacteria Large Urine Other Uyeast Blood Type Antibody Screen BBK History Checked Assessment & Plan - Assessment and Plan (Free Text) Assessment: Pt is a 68 yo M with pmhx of coronary artery disease, anal fistula, CKD, neurogenic bladder, recurrent UTI's, right hydronephrosis w/ stones, PVD, diabetes, colonic fistula, hernia, and colostomy who presents to the ER for compliant of rectal bleeding x2days. ICU consulted due to the pt being tachy, and BRBPR. 1. Tachycardia 2. BRBPR 3. ARF on CKD Plan: Neuro: - AOx3 Cadio: Tachycardia likely 2/2 dehydration vs GI Bleed - EKG showed sinus tach at 148 - IVF @ 80/hr - Maintain MAP >65 - Cont to monitor Pulm: - Maintain O2 sat >92 GI: BRBPR: - Pt states that it is painless bleed - Denies hematochezia or melena - GI Consulted - H.3 - f/u cbc in AM and cont to monitor - IVF, bolus and maintaince @80/hr Nephro: ARF on CKD: - IVF hydration - Nephro consulted Endo: - Maintain euglycemia Case seen and discussed with Dr. Reed Maurer, PGY1 <Herber Mcbride - Last Filed: 12/23/18 14:38> Meds - Medications Medications: Current Medications Sodium Bicarbonate 75 meq/ (Sodium Chloride) 1,075 mls @ 100 mls/hr IV .[id number] NESHA Results - Vital Signs Recent Vital Signs: Last Vital Signs Temp 98.1 F 12/23/18 10:23 Pulse 145 H 12/23/18 14:12 Resp 22 12/23/18 14:12 BP 92/48 L 12/23/18 14:12 Pulse Ox 100 12/23/18 14:12 - Labs Result Diagrams: 12/23/18 10:40 12/23/18 10:40 Labs: Laboratory Results - last 24 hr 12/23/18 12/23/18 12/23/18 10:40 10:40 10:40 WBC 5.2 RBC 4.07 Hgb 12.3 L Hct 37.6 L MCV 92.4 MCH 30.2 MCHC 32.7 RDW 16.2 H Plt Count 116 L MPV 10.4 Neut % (Auto) 73.8 H Lymph % (Auto) 16.2 L [place] % (Auto) 9.4 H Eos % (Auto) 0.0 L Baso % (Auto) 0.6 Lymph # (Auto) 0.8 L [place] # (Auto) 0.5 Eos # (Auto) 0.0 Baso # (Auto) 0.03 Absolute Neuts (auto) 3.83 PT INR APTT pO2 VBG pH VBG pCO2 VBG HCO3 VBG Total CO2 VBG O2 Sat (Calc) VBG Base Excess VBG Potassium Glucose Lactate FiO2 Crit Value Called To Crit Value Called By Blood Gas Notified Time Sodium 137 Potassium 4.9 Chloride 108 H Carbon Dioxide 14 L Anion Gap 20 BUN 83 H Creatinine 11.3 H* D Est GFR ( Amer) 5 Est GFR (Non-Af Amer) 5 Random Glucose 127 H Calcium 8.6 Phosphorus 7.1 H Magnesium 1.7 Total Bilirubin 0.4 AST 23 ALT 11 Alkaline Phosphatase 67 Total Creatine Kinase 234 H CK-MB (CK-2) 1.9 CK-MB (CK-2) % Cancelled Troponin I 0.07 Total Protein 8.0 Albumin 3.9 Globulin 4.1 Albumin/Globulin Ratio 1.0 L Lipase 276 Venous Blood Potassium Urine Color Urine Appearance Urine pH Ur Specific [place] Urine Protein Urine Glucose (UA) Urine Ketones Urine Blood Urine Nitrate Urine Bilirubin Urine Urobilinogen Ur Leukocyte Esterase Urine RBC Urine WBC Ur Epithelial Cells Amorphous Sediment Urine Bacteria Urine Other Blood Type A POSITIVE Antibody Screen Negative BBK History Checked Patient has bt 12/23/18 12/23/18 12/23/18 10:40 11:20 12:10 WBC RBC Hgb Hct MCV MCH MCHC RDW Plt Count MPV Neut % (Auto) Lymph % (Auto) [place] % (Auto) Eos % (Auto) Baso % (Auto) Lymph # (Auto) [place] # (Auto) Eos # (Auto) Baso # (Auto) Absolute Neuts (auto) PT 14.4 H INR 1.27 APTT 34.9 pO2 24 L VBG pH 7.10 L* VBG pCO2 38.0 L VBG HCO3 11.8 L VBG Total CO2 13.0 L VBG O2 Sat (Calc) 43.4 VBG Base Excess -17.1 L VBG Potassium 5.0 Glucose 136 H Lactate 2.7 H FiO2 21.0 Crit Value Called To Dr harrison Crit Value Called By [id number] Blood Gas Notified Time 1130 Sodium 134.0 Potassium Chloride 108.0 H Carbon Dioxide Anion Gap BUN Creatinine Est GFR ( Amer) Est GFR (Non-Af Amer) Random Glucose Calcium Phosphorus Magnesium Total Bilirubin AST ALT Alkaline Phosphatase Total Creatine Kinase CK-MB (CK-2) CK-MB (CK-2) % Troponin I Total Protein Albumin Globulin Albumin/Globulin Ratio Lipase Venous Blood Potassium 5.0 Urine Color Yellow Urine Appearance Clear Urine pH 6.5 Ur Specific [place] 1.020 Urine Protein >=300 H Urine Glucose (UA) 100 H Urine Ketones Negative Urine Blood Large H Urine Nitrate Negative Urine Bilirubin Negative Urine Urobilinogen 0.2 Ur Leukocyte Esterase Moderate H Urine RBC Tntc H Urine WBC Tntc H Ur Epithelial Cells None Amorphous Sediment Moderate Urine Bacteria Large Urine Other Uyeast Blood Type Antibody Screen BBK History Checked Assessment & Plan - Assessment and Plan (Free Text) Plan: Patient seen and examined on rounds with resident, agree with note with following additions/exceptions: Patient is 68yo male with PMHx CAD, CKD, neurogenic bladder, recurrent UTI's, right hydronephrosis w/ stones, PVD, diabetes, colonic fistula, hernia, and colostomy with reversal, presented from home with dizziness and rectal bleeding. Rectal bleeding is without BMs, and complains of dizziness. Pts currently HD stable, afebrile, HR 140s. Pt reports he has not had anything to eat or drink for 2-3 days. Denies fever, chills, cough, CP, SOB, palpitations, SCHMIDT. Clinically dry on exam Labs, imaging, chart reviewed Lactate 2.3 Tachycardia Acute on CKD Anemia Lower GIB dehydration CAD DM Recommend: - supp o2 as needed, duonebs PRN, IS - Broad Spectrum abx - panculture, UCx, BCx, Procal - ID eval - Hold BP meds - IVF hydration 1/2NS with 75meq NaBicarb - renal follow up - check UA, Ulytes, Renal sono - GI follow up - monitor CBC, Cr - GI ppx, PPI - DVT ppx, SCDs - Monitor in ICU
--- NOTE | 2018-12-23 13:32 | CON ---
DATE OF CONSULTATION: 12/23/2018 REASON FOR CONSULTATION: Hypotension, rectal bleeding, acute kidney injury superimposed on chronic kidney disease stage V. HISTORY OF PRESENTING ILLNESS: A 68-year-old male, known to me from multiple prior evaluations. The patient was scheduled to go for AV access creation on Friday. He woke up not feeling well. He had cold. He had a runny nose, sore throat. Procedure was canceled. Later that day he started having rectal bleeding. The patient reports significant amount of rectal bleeding. He denies any abdominal pain. He denies any nausea or vomiting. He denies any constipation. He denies any shortness of breath. He came to the emergency room today at the direction of Dr. Frost because he was having the rectal bleeding for the last 3 days. In the emergency room, he was found to be somewhat hypotensive, blood pressure 101/58, tachycardic with a heart rate of 148, looking very pale, fatigued, in mild respiratory distress. He is currently receiving normal saline. His blood work shows hemoglobin of 12, BUN of 83, creatinine of 11.3. His potassium is 4.9. His chloride is 108, CO2 is 14, anion gap was 20. PAST MEDICAL/SURGICAL HISTORY: Hypertension, chronic kidney disease stage IV/V, atrial fibrillation, MRSA bacteremia, history of osteomyelitis, NIDDM, chronic right hydronephrosis, right staghorn calculus, recurrent UTI, history of pyelonephritis, diverting colostomy done for rectal fistula, reversal of colostomy, neurogenic bladder, perirectal abscess. FAMILY HISTORY: Noncontributory. SOCIAL HISTORY: No smoking, no alcohol use, no IV drug abuse. ALLERGIES: CEFTRIAXONE. CURRENT MEDICATIONS: Vitamin D once a week, amlodipine 5, sodium bicarbonate 650 mg three times a day with meals, Renagel 800 t.i.d., Lopressor 50 b.i.d., iron 150, Pepcid 20. REVIEW OF SYSTEMS: All systems are reviewed, pertinent positives as mentioned in the history of presenting illness, rest unremarkable. PHYSICAL EXAMINATION: GENERAL: Elderly male, lying in bed, in the emergency room, appears very pale and fatigued. VITAL SIGNS: Blood pressure 101/58, heart rate 148, respiratory rate 20, temperature 98.1. HEENT: Normocephalic, atraumatic, positive pallor. NECK: Supple, no JVD. LUNGS: Bilateral equal entry, bilateral equal expansion, no rales, no rhonchi. CARDIAC: S1, S2, regular rate rhythm, no murmur, no rub, sinus tachycardia. ABDOMEN: Distended, soft, positive ventral hernia, bowel sounds present. EXTREMITIES: No lower extremity edema, chronic stasis changes, skin is hyperpigmented. LABORATORY DATA: WBC 5, hemoglobin 12.3, hematocrit 37.6, platelets 116. Sodium 137, potassium 4.9, chloride 108, CO2 of 14, BUN 83, creatinine 11.3, glucose 127, calcium 8.6, phosphorus 7.1, magnesium 1.7, albumin 3.9, INR 1.2. ASSESSMENT: 1. Acute kidney injury superimposed on chronic kidney disease stage IV/V, baseline creatinine around 5.5? 2. Prerenal azotemia/dehydration in the setting of decreased p.o. intake, rectal bleeding. 3. Hypotension secondary to dehydration. 4. Tachycardia secondary to dehydration. 5. No evidence of hyperkalemia. 6. No uremic signs or symptoms at this time. 7. [id number] diabetes mellitus. 8. Hyperphosphatemia. 9. History of rectal fistula in the past. PLAN: 1. Aggressive hydration, give one bag of normal saline wide open. 2. Normal saline at 100 mL per hour after that. 3. Alkalinized IV fluids. 4. No uremic signs or symptoms at this time. 5. Discussed with Dr. Frost at length. 6. GI evaluation. Thank you for the courtesy of this consultation. We will follow this patient closely with you. Ana Ochoa MD
--- NOTE | 2018-12-23 14:25 | CP.PCM.CON ---
History of Present Illness - History of Present Illness History of Present Illness: Surgery Consult Note for Dr. Pelayo CC: bright red blood per rectum Patient is a 68 yo male w/ PMH of coronary artery disease, anal fistula, CKD, neurogenic bladder, recurrent UTI's, right hydronephrosis w/ stones, PVD, diabetes, colonic fistula, hernia, and colostomy who presents to the ER for compliant of rectal bleeding x2days. States the bleeding started 2 days ago with associated fatigue and excessive tiredness/sleepiness. Patient states no prior episodes of this has occurred in the past. Patient states that he is not having any active pain with the bowel movements. Patient reports that he first noticed this 2 days ago when he had an urge to poop but he was barely able to make it to the bathroom as his bowel movement was coming right out. Patient reports he was able to see red blood in the toilet bowl and after he wiped. States his last one was in the morning prior to coming into the hospital and has not had any events since admission. Denies fevers, chills, chest pain, sob, n/v, constipation or diarhea, and dysuria. Admits to lightheadedness, fatigue, sleepiness. Pmhx: coronary artery disease, CKD, neurogenic bladder, recurrent UTI's, right hydronephrosis w/ stones, PVD, diabetes, colonic fistula, hernia, and colostomy Pshx: Colostomy, toe amputation for osteo All: Ceftriaxone Soc: Previous smoker, previous etoh abuse, no recent illicit drug abuse Fam Hx: Non-contributory PMD: Dr. Frost Review of Systems - Review of Systems All systems: reviewed and no additional remarkable complaints except Review of Systems: see HPI Past Patient History - Infectious Disease Hx of Infectious Diseases: None - Tetanus Immunizations Tetanus Immunization: Unknown - Past Social History Smoking Status: Never Smoked - CARDIAC Hx Pacemaker: No - PULMONARY Hx Respiratory Disorders: Yes Hx Chronic Obstructive Pulmonary Disease (COPD): Yes - NEUROLOGICAL Hx Paralysis: No - HEENT Hx HEENT Problems: Yes (wears glasses) - RENAL Hx Chronic Kidney Disease: Yes Hx Dialysis: Yes (hd x 1 treatment 06/2016) Hx Kidney Stones: Yes Hx Renal Failure: Yes Other/Comment: had - ENDOCRINE/METABOLIC Hx Endocrine Disorders: Yes Hx Diabetes Mellitus Type 2: Yes - HEMATOLOGICAL/ONCOLOGICAL Hx Blood Transfusions: Yes - INTEGUMENTARY Hx Dermatological Problems: Yes (candidiasis in groin, cystitis) Other/Comment: scratch julián inner rle from scratching, healed surgical scar left knee from sx for muscle tear, healed bedsore scar left buttock/sacrum, pt had sx on bedsore by dr gabby pelayo, r ft hammertoes 2 3 4 5, thick curled toenails, brown discolored skin, discolored skin to left ankle/foot, 2cm x 1cm dry crusty closed wound to ball of left foot, healed surgical scar mid abd from colostomy reversal sx, protruding soft abd hernia developed after colostomy reversal which was about 3 years ago, hx r 4th toe ulcer - MUSCULOSKELETAL/RHEUMATOLOGICAL Hx Musculoskeletal Disorders: Yes - GASTROINTESTINAL Hx Gastrointestinal Disorders: Yes Hx Colostomy: Yes (reversed about 3 yrs ago) Hx Diverticulitis: Yes Other/Comment: hx of anal fistula had sx, developed abd hernia after colostomy reversal - GENITOURINARY/GYNECOLOGICAL Hx Genitourinary Disorders: Yes Hx Urinary Tract Infection: Yes (recurrent) Other/Comment: neurogenic bladder no longer needs to self catherize himself - PSYCHIATRIC Hx Emotional Abuse: No Hx Physical Abuse: No Hx Substance Use: No - SURGICAL HISTORY Hx Amputation: Yes (all toes left ft, great toe r ft) Hx Cardiac Catheterization: Yes Hx Mastectomy: No Hx Orthopedic Surgery: Yes (left knee for muscle tear) Other/Comment: multiple vascular procedures and leg stents, colostomy with reversal about 3 yrs ago, tonsillectomy, anal fistula - ANESTHESIA Hx Anesthesia Reactions: No Hx Malignant Hyperthermia: No Meds Allergies/Adverse Reactions: Allergies Allergy/AdvReac Type Severity Reaction Status Date / Time ceftriaxone sodium Allergy Intermediate ITCHING Verified 12/08/18 09:58 [From Rocephin] - Medications Medications: Current Medications Sodium Bicarbonate 75 meq/ (Sodium Chloride) 1,075 mls @ 80 mls/hr IV .[id number] NESHA Last Admin: 12/23/18 13:00 Dose: 80 mls/hr Physical Exam - Constitutional Appears: Non-toxic, No Acute Distress - Head Exam Head Exam: NORMAL INSPECTION - Eye Exam Eye Exam: EOMI - ENT Exam ENT Exam: Mucous Membranes Dry - Respiratory Exam Respiratory Exam: NORMAL BREATHING PATTERN - Cardiovascular Exam Cardiovascular Exam: Tachycardia - GI/Abdominal Exam GI & Abdominal Exam: Soft. absent: Distended, Firm, Guarding, Hernia, Tenderness - Exam Additional comments: well healed sacral wound no blood noted near anus - Neurological Exam Neurological exam: Alert, Oriented x3 - Psychiatric Exam Psychiatric exam: Normal Affect, Normal Mood - Skin Skin Exam: Dry, Intact, Normal Color Results - Vital Signs Recent Vital Signs: Last Vital Signs Temp 98.1 F 12/23/18 10:23 Pulse 145 H 12/23/18 14:12 Resp 22 12/23/18 14:12 BP 92/48 L 12/23/18 14:12 Pulse Ox 100 12/23/18 14:12 - Labs Result Diagrams: 12/23/18 10:40 12/23/18 10:40 Labs: Laboratory Results - last 24 hr 12/23/18 12/23/18 12/23/18 10:40 10:40 10:40 WBC 5.2 RBC 4.07 Hgb 12.3 L Hct 37.6 L MCV 92.4 MCH 30.2 MCHC 32.7 RDW 16.2 H Plt Count 116 L MPV 10.4 Neut % (Auto) 73.8 H Lymph % (Auto) 16.2 L [place] % (Auto) 9.4 H Eos % (Auto) 0.0 L Baso % (Auto) 0.6 Lymph # (Auto) 0.8 L [place] # (Auto) 0.5 Eos # (Auto) 0.0 Baso # (Auto) 0.03 Absolute Neuts (auto) 3.83 PT INR APTT pO2 VBG pH VBG pCO2 VBG HCO3 VBG Total CO2 VBG O2 Sat (Calc) VBG Base Excess VBG Potassium Glucose Lactate FiO2 Crit Value Called To Crit Value Called By Blood Gas Notified Time Sodium 137 Potassium 4.9 Chloride 108 H Carbon Dioxide 14 L Anion Gap 20 BUN 83 H Creatinine 11.3 H* D Est GFR ( Amer) 5 Est GFR (Non-Af Amer) 5 Random Glucose 127 H Calcium 8.6 Phosphorus 7.1 H Magnesium 1.7 Total Bilirubin 0.4 AST 23 ALT 11 Alkaline Phosphatase 67 Total Creatine Kinase 234 H CK-MB (CK-2) 1.9 CK-MB (CK-2) % Cancelled Troponin I 0.07 Total Protein 8.0 Albumin 3.9 Globulin 4.1 Albumin/Globulin Ratio 1.0 L Lipase 276 Venous Blood Potassium Urine Color Urine Appearance Urine pH Ur Specific [place] Urine Protein Urine Glucose (UA) Urine Ketones Urine Blood Urine Nitrate Urine Bilirubin Urine Urobilinogen Ur Leukocyte Esterase Urine RBC Urine WBC Ur Epithelial Cells Amorphous Sediment Urine Bacteria Urine Other Blood Type A POSITIVE Antibody Screen Negative BBK History Checked Patient has bt 12/23/18 12/23/18 12/23/18 10:40 11:20 12:10 WBC RBC Hgb Hct MCV MCH MCHC RDW Plt Count MPV Neut % (Auto) Lymph % (Auto) [place] % (Auto) Eos % (Auto) Baso % (Auto) Lymph # (Auto) [place] # (Auto) Eos # (Auto) Baso # (Auto) Absolute Neuts (auto) PT 14.4 H INR 1.27 APTT 34.9 pO2 24 L VBG pH 7.10 L* VBG pCO2 38.0 L VBG HCO3 11.8 L VBG Total CO2 13.0 L VBG O2 Sat (Calc) 43.4 VBG Base Excess -17.1 L VBG Potassium 5.0 Glucose 136 H Lactate 2.7 H FiO2 21.0 Crit Value Called To Dr imm Crit Value Called By [id number] Blood Gas Notified Time 1130 Sodium 134.0 Potassium Chloride 108.0 H Carbon Dioxide Anion Gap BUN Creatinine Est GFR ( Amer) Est GFR (Non-Af Amer) Random Glucose Calcium Phosphorus Magnesium Total Bilirubin AST ALT Alkaline Phosphatase Total Creatine Kinase CK-MB (CK-2) CK-MB (CK-2) % Troponin I Total Protein Albumin Globulin Albumin/Globulin Ratio Lipase Venous Blood Potassium 5.0 Urine Color Yellow Urine Appearance Clear Urine pH 6.5 Ur Specific [place] 1.020 Urine Protein >=300 H Urine Glucose (UA) 100 H Urine Ketones Negative Urine Blood Large H Urine Nitrate Negative Urine Bilirubin Negative Urine Urobilinogen 0.2 Ur Leukocyte Esterase Moderate H Urine RBC Tntc H Urine WBC Tntc H Ur Epithelial Cells None Amorphous Sediment Moderate Urine Bacteria Large Urine Other Uyeast Blood Type Antibody Screen BBK History Checked Assessment & Plan - Assessment and Plan (Free Text) Assessment: 68 yo male admitted for active rectal bleeding Plan: monitor H/H, monitor vitals CT abd/pelvis po contrast pending Transfuse if necessary Appreciate nephrology input Appreciate GI input repeat CBC pending agree with NS bolus and maintenance fluids with bicarp drip due to acidosis 2/2 from likely GI loss pending imaging if surgical intervention warranted Further recs as per Dr. Pelayo PGY-1 Mark Vasquez
[2018-12-23] MEDS ORDERED: Barium Sulfate Susp 2.1% w/v, 2.0% w/w 450 mL Bottle PO ONE (14:31)
[2018-12-23 14:33] LABS: VENOUS BLOOD GAS BASE EXCESS -20.4 mmol/L (0.0-2.0); VENOUS BLOOD GAS PO2 29 mm/Hg (30-55); VENOUS BLOOD PH 7.06 (7.32-7.43)
[2018-12-23] MEDS ORDERED: Vancomycin 1gm in NS 250ml 1 GM/250 ML BAG IVPB SCH (14:45)
[2018-12-23] MEDS ORDERED: Dextrose 50% SYRINGE Inj (50 ml) IV PRN (16:45)
[2018-12-23 16:47] VITALS: BMI 28.7
[2018-12-23] MEDS ORDERED: Pneumococcal 23-Valent Vaccine IM ONE (16:47)
[2018-12-23] MEDS ORDERED: Influenza Vaccine 60 mcg/0.5 mL SYR (4YR UP) IM ONE (16:47)
[2018-12-23] MEDS ORDERED: Cefepime 1gm in NS 100ml 1 GM/100 ML BAG IVPB SCH (22:00)
--- NOTE | 2018-12-23 22:01 | HP ---
DATE OF EXAM: 12/23/2018 HISTORY OF PRESENT ILLNESS: This is a 68-year-old male with a history of bright red blood per rectum for 2-3 days and not associated with bowel movements, generalized weakness, and fatigue, referred to [facility] emergency room for evaluation. 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 SOCIAL HISTORY. He is a nonsmoker, nondrinker, nondrug user. ALLERGIES: TO ROCEPHIN. MEDICATIONS: Home medications are listed in the emergency room as Pepcid, Ferrex, adult probiotic, Lopressor, multivitamin, Renagel, sodium bicarb, Norvasc and Drisdol. REVIEW OF SYSTEMS: A 12 systems are reviewed, pertinent findings as noted in the physical exam. PHYSICAL EXAMINATION: GENERAL: The patient is weak. He is alert and oriented x3 VITAL SIGNS: He has a oral temperature of 98.1, his pulse is 148, his blood pressure is 85/60, his respiratory rate is 20, and oxygen saturation is reported as being not documented on room air. HEENT: Tongue mucosa is dry. NECK: Supple. JVD. LUNGS: Show some rhonchi at the bases. HEART: Irregular, rapid, S1 and S2 rhythm. ABDOMEN: Shows an abdominal hernia which is residual from his colostomy that he had had in the past. EXTREMITIES: Show no evidence of edema. There is evidence of amputation of toes on the left foot and right foot. IMAGING DATA: His chest x-ray was reported as no active disease. His electrocardiogram is reported as a sinus tachycardia with a junctional ST depression. The patient recently had a stress test in the office of his [facility] 1 week ago which was reported as being normal. LABORATORY DATA: Shows a WBC of 5.2, RBC 4.07, hemoglobin 12.3, hematocrit 37.6, and platelet count 116. PT is 14.4 with an INR of 1.27, PTT is 34.9. His lactic acid is 2.7. Chemistry showed a sodium of 137, potassium of 4.9, chloride of 108, CO2 of 14, BUN of 83, and creatinine of 11.3. His random blood sugar was 127. His calcium is 8.6 and phosphorus is 7.1. His LFTs are normal. His CK is 234. Troponin is 0.07. His albumin is 3.9. Urinalysis shows moderate leukocyte esterase too numerous to count, rbc's too numerous to count, wbc's, large urine bacteria, some yeast, large amount of urine blood. His influenza titer is reported as being negative. IMPRESSION: This is a 68-year-old male with; 1. Bright red blood per rectum for several days. 2. Pyuria. 3. Tachycardia. 4. Chronic renal disease. PLAN: Given the patient's clinical setting in the setting of hypotension with renal failure and pyuria and rectal bleeding, we will request an intensive care ICU/CCU evaluation. At the same time, we will request cultures of blood in urine to be done and a chest x-ray as well as the consults with Surgery, GI, Renal and Infectious Disease. More than 45 minutes was spent reviewing the data and discussing the case with the patient and the emergency room staff as well as with the individual consultants. Ana Frost MD
[2018-12-23] MEDS: Insulin Lispro (humaLOG) LOW Coverage SC SCH (22:11)
[2018-12-23 22:14] LABS: HEMOGLOBIN 9.8 g/dL (14.0-18.0); MEAN CELL VOLUME 91.8 fl (80.0-105.0); MEAN CORPUSCULAR HEMOGLOBIN 29.7 pg (25.0-35.0); MEAN CORPUSCULAR HGB CONC 32.3 g/dl (31.0-37.0); MEAN PLATELET VOLUME 9.6 fl (7.0-11.0); RBC 3.3 10^6/uL (3.5-6.1); RED CELL DISTRIBUTION WIDTH 16.2 % (11.5-14.5); WHITE BLOOD COUNT 5.4 10^3/uL (4.5-11.0)
--- NOTE | 2018-12-23 22:32 | CARD ---
APPROVED REPORT Date of service: 12/23/2018 EKG Measurement Heart [id number] <Conclusion> Atrial flutter with 2:1 AV conduction Rightward axis Nonspecific ST abnormality Abnormal ECG
--- NOTE | 2018-12-23 23:07 | CARD ---
APPROVED REPORT Date of service: 12/23/2018 EKG Measurement Heart [id number] [id number] <Conclusion> Atrial flutter with 2:1 block Rightward axis NDSTT abnormalities Abnormal ECG
[2018-12-23] MEDS ORDERED: Digoxin 500 mcg/2ml (0.5 mg/2ml) Inj IVP STA (23:18)
[2018-12-24 01:47] LABS: PH,URINE 6.5 (4.7-8.0); URINE BILIRUBIN NEGATIVE (NEGATIVE); URINE BLOOD LARGE (NEGATIVE); URINE GLUCOSE (UA) 100 mg/dL (NEGATIVE); URINE LEUKOCYTE ESTERASE LARGE Leu/uL (NEGATIVE); URINE PROTEIN >=300 mg/dL (<30 mg/dL); URINE UROBILINOGEN 0.2 E.U./dL (<1 E.U./dL)
[2018-12-24 01:50] LABS: URINE APPEARANCE CLOUDY (CLEAR); URINE COLOR YELLOW (YELLOW)
[2018-12-24 02:01] LABS: URINE BACTERIA MOD /hpf; URINE EPITHELIAL CELLS 0 - 2 /hpf (0-5); URINE WBC TNTC /hpf (0-6)
[2018-12-24 06:41] LABS: BASO # 0.02 K/mm3 (0.0-2.0); BASO % 0.6 % (0.0-3.0); EOS % 0.6 % (1.5-5.0); HEMOGLOBIN 10.8 g/dL (14.0-18.0); LYMPH % 26.4 % (22.0-35.0); MEAN CELL VOLUME 91.1 fl (80.0-105.0); MEAN CORPUSCULAR HEMOGLOBIN 29.3 pg (25.0-35.0); MEAN CORPUSCULAR HGB CONC 32.1 g/dl (31.0-37.0); MEAN PLATELET VOLUME 10.1 fl (7.0-11.0); MONO # 0.3 (0.1-0.6); MONO % 7.7 % (1.0-6.0); RBC 3.69 10^6/uL (3.5-6.1); RED CELL DISTRIBUTION WIDTH 16.1 % (11.5-14.5); WHITE BLOOD COUNT 3.6 10^3/uL (4.5-11.0)
[2018-12-24 07:18] LABS: ALB/GLOB RATIO 0.8 (1.1-1.8); CALCIUM 7.2 mg/dL (8.4-10.5)
[2018-12-24] MEDS ORDERED: Dextrose 50% SYRINGE Inj (50 ml) IVP ONE (07:46)
[2018-12-24] MEDS: Insulin Lispro (humaLOG) LOW Coverage SC SCH ×4 (07:58→22:10)
--- NOTE | 2018-12-24 08:07 | CP.PCM.PN ---
Subjective - Date & Time of Evaluation Date of Evaluation: 12/24/18 Time of Evaluation: 08:00 - Subjective Subjective: Surgery Progress Note for Dr. Moncada S/E at bedside. Continues to have yellow-colored bowel movements as per nursing. Repleted 1 unit of pRBCs overnight. Denies fevers, chills, chest pain, sob, n/v, constipation or diarrhea, and dizziness and dysuria. Objective - Vital Signs/Intake and Output Vital Signs (last 24 hours): Temp Pulse Resp BP Pulse Ox 98.2 F 119 H 24 108/42 L 98 12/24/18 06:40 12/24/18 06:40 12/24/18 06:40 12/24/18 06:40 12/24/18 06:40 Intake and Output: 12/24/18 12/24/18 06:59 18:59 Intake Total 5655 Output Total 950 Balance 4705 - Medications Medications: Current Medications Dextrose (Dextrose 50% Inj) 0 ml IV STAT PRN; Protocol PRN Reason: Hypoglycemia Protocol Dextrose (Dextrose 50% Inj) 50 ml IV ONCE ONE Stop: 12/24/18 08:01 Sodium Bicarbonate 75 meq/ (Sodium Chloride) 1,075 mls @ 80 mls/hr IV .[id number] NESHA Last Admin: 12/23/18 17:36 Dose: 80 mls/hr Dextrose (Dextrose 5% In Water 1000 Ml) 1,000 mls @ 0 mls/hr IV .Q0M PRN; Protocol PRN Reason: Hypoglycemia Protocol Meropenem 250 mg/ Sodium (Chloride) 100 mls @ 100 mls/hr IVPB Q12H NESHA; Protocol Stop: 01/01/19 20:31 Last Admin: 12/23/18 20:45 Dose: 100 mls/hr Insulin Human Lispro (Humalog Low) 0 units SC ACHS NESHA; Protocol Last Admin: 12/23/18 22:11 Dose: Not Given Metoprolol Tartrate (Lopressor) 25 mg PO Q8 NESHA Nystatin (Nystop Topical Powder) 0 gm TOP BID NESHA - Labs Labs: 12/24/18 05:30 12/24/18 05:30 PT 14.4 SECONDS (9.4-12.5) H 12/23/18 10:40 INR 1.27 12/23/18 10:40 APTT 34.9 Seconds (26.9-38.3) 12/23/18 10:40 - Constitutional Appears: Non-toxic, No Acute Distress - Head Exam Head Exam: NORMAL INSPECTION - Eye Exam Eye Exam: EOMI, Normal appearance. absent: Scleral icterus - Respiratory Exam Respiratory Exam: NORMAL BREATHING PATTERN. absent: Respiratory Distress - Cardiovascular Exam Cardiovascular Exam: Tachycardia. absent: JVD - GI/Abdominal Exam GI & Abdominal Exam: Soft. absent: Distended, Firm, Tenderness - Rectal Exam Additional comments: copius light brown liquid non-formed stool - Neurological Exam Neurological Exam: Awake, Oriented x3 - Psychiatric Exam Psychiatric exam: Normal Affect, Normal Mood - Skin Skin Exam: Intact, Normal Color Assessment and Plan - Assessment and Plan (Free Text) Assessment: 68 yo male admitted for active rectal bleeding Plan: Monitor H&H, transfuse as needed Appreciate GI input in setting of hgb trending down yesterday prior to [address] abd/pelvis image pending Continue to monitor bowel movements Continue IV abx for UTI Agree with maintenance fluids to maintain BP Further recs as per Dr. Moncada PGY-1 Mark Vasquez
--- NOTE | 2018-12-24 08:37 | CP.CCUPN ---
<Claudia Maurer - Last Filed: 12/24/18 13:43> CCU Subjective - Physician Review Subjective (Free Text): 12/24/18 08:51 Claudia Maurer, PGY1 ICU Progress Note Pt was seen and examined this AM at bedside. Pt had episodes of tachycardia and hypotension overnight which, due to his BP at the time renally dosed Dig was given and helped improve HR. Pt at this time states that he is feeling better than last night and yesterday. He no longer admits to any palpitations at this time. He also denies any fevers, chills, headache, lightheadedness, chest pain, LE swelling, SOB, abd pain, n/v, c/d, dysuria or hematuria. Pt had 2 BMs overnight which were non-bloody, but were liquid. CCU Objective - Vital Signs / Intake & Output Vital Signs (Last 4 hours): Vital Signs Temp Pulse Resp BP Pulse Ox 12/24/18 06:40 98.2 F 119 H 24 108/42 L 98 12/24/18 06:39 98.2 F 108 H 25 H 100/39 L 98 12/24/18 06:38 98.2 F 125 H 25 H 105/50 L 98 12/24/18 06:37 98.2 F 141 H 24 130/73 93 L 12/24/18 06:36 98.2 F 142 H 25 H 94/61 L 93 L 12/24/18 06:35 141 H 97/57 L 12/24/18 06:24 98.2 F 137 H 95 12/24/18 06:06 98.2 F 139 H 22 97/56 L 92 L 12/24/18 06:00 98.2 F 139 H 22 91 L 12/24/18 05:04 98.2 F 138 H 23 116/80 97 12/24/18 05:00 98.2 F 138 H 20 95 Intake and Output (Last 8hrs): Intake & Output 12/23/18 12/24/18 12/24/18 22:59 06:59 14:59 Intake Total 4210 1445 Output Total 750 200 Balance 3460 1245 Weight 200 lb 189 lb Intake: IV 3250 960 Right Upper arm 3250 960 Oral 960 60 Blood Product 325 Other 100 Output: Urine 450 200 2-way Urethral 450 200 Stool 300 Other: Voiding Method Toilet # Bowel Movements 2 - Physical Exam Head: Positive for: Atraumatic, Normocephalic Pupils: Positive for: PERRL Extroacular Muscles: Positive for: EOMI Conjunctiva: Positive for: Normal Respiratory/Chest: Positive for: Wheezes (end expiratory wheezing present diffusely.), Rales (in LLL [place]). Negative for: Accessory Muscle Use, Decreased Breath Sounds, Tachypneic Cardiovascular: Positive for: Normal S1, S2, Tachycardic. Negative for: Rub, Gallop Abdomen: Positive for: Normal Bowel Sounds, Hernias (midline hernia noted, non- tender at this time). 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) Neurological: Positive for: GCS=15, CN II-XII Intact, Speech Normal Skin: Positive for: Warm, Dry Psychiatric: Positive for: Alert, Oriented x 3, Normal Insight, Normal Concentration - Medications Active Medications: Active Medications Generic Name Dose Route Start Last Admin Trade Name Freq PRN Reason Stop Dose Admin Dextrose 0 ml 12/23/18 16:45 Dextrose 50% Inj IV STAT PRN Hypoglycemia Protocol Protocol Sodium Bicarbonate 75 meq/ 1,075 mls @ 80 mls/hr 12/23/18 14:30 12/23/18 17:36 Sodium Chloride IV 80 mls/hr .[id number] NESHA Administration Dextrose 1,000 mls @ 0 mls/hr 12/23/18 16:45 Dextrose 5% In Water 1000 Ml IV .Q0M PRN Hypoglycemia Protocol Protocol Per Protocol Meropenem 250 mg/ Sodium 100 mls @ 100 mls/hr 12/23/18 20:30 12/23/18 20:45 Chloride IVPB 01/01/19 20:31 100 mls/hr Q12H NESHA Administration Protocol Insulin Human Lispro 0 units 12/23/18 22:00 12/24/18 07:58 Humalog Low SC Not Given ACHS [facility] Protocol Metoprolol Tartrate 25 mg 12/24/18 10:00 Lopressor PO Q8 NESHA Nystatin 0 gm 12/24/18 10:00 Nystop Topical Powder TOP BID NESHA - Patient Studies Lab Studies: Lab Studies 12/24/18 12/24/18 12/24/18 Range/Units 07:24 05:30 05:30 WBC 3.6 L D (4.5-11.0) 10^3/uL RBC 3.69 (3.5-6.1) 10^6/uL Hgb 10.8 L (14.0-18.0) g/dL Hct 33.6 L (42.0-52.0) % MCV 91.1 (80.0-105.0) fl MCH 29.3 (25.0-35.0) pg MCHC 32.1 (31.0-37.0) g/dl RDW 16.1 H (11.5-14.5) % Plt Count 79 L (120.0-450.0) 10^3/uL MPV 10.1 (7.0-11.0) fl Neut % (Auto) 64.7 (50.0-68.0) % Lymph % (Auto) 26.4 (22.0-35.0) % [place] % (Auto) 7.7 H (1.0-6.0) % Eos % (Auto) 0.6 L (1.5-5.0) % Baso % (Auto) 0.6 (0.0-3.0) % Lymph # (Auto) 1.0 L (1.2-3.4) [place] # (Auto) 0.3 (0.1-0.6) Eos # (Auto) 0.0 (0.0-0.7) Baso # (Auto) 0.02 (0.0-2.0) K/mm3 Absolute Neuts (auto) 2.35 (1.4-6.5) PT (9.4-12.5) SECONDS INR APTT (26.9-38.3) Seconds pO2 (30-55) mm/Hg VBG pH (7.32-7.43) VBG pCO2 (40-60) VBG HCO3 (21-28) mmol/l VBG Total CO2 (22-28) mmol.L VBG O2 Sat (Calc) (40-65) % VBG Base Excess (0.0-2.0) mmol/L VBG Potassium (3.6-5.2) mmol/L Glucose (75-110) mg/dl Lactate (0.7-2.1) mmol/L FiO2 % Crit Value Called To Crit Value Called By Blood Gas Notified Time Sodium 136 (132-148) mmol/L Potassium 4.1 (3.6-5.0) mmol/L Chloride 113 H (98-107) mmol/L Carbon Dioxide 12 L (21-33) mmol/L Anion Gap 16 (10-20) BUN 83 H (7-21) mg/dL Creatinine 11.0 H* (0.8-1.5) mg/dl Est GFR ( Amer) 6 Est GFR (Non-Af Amer) 5 POC Glucose (mg/dL) 65 (65-110) mg/dL Random Glucose 77 (70-110) mg/dL Calcium 7.2 L (8.4-10.5) mg/dL Phosphorus (2.5-4.5) mg/dL Magnesium (1.7-2.2) mg/dL Total Bilirubin 0.3 (0.2-1.3) mg/dL AST 24 (17-59) U/L ALT 7 (7-56) U/L Alkaline Phosphatase 51 (38-126) U/L Total Creatine Kinase (35-230) U/L CK-MB (CK-2) (0.0-3.6) ng/mL CK-MB (CK-2) % Troponin I ng/mL Total Protein 6.6 (5.8-8.3) g/dL Albumin 3.0 (3.0-4.8) g/dL Globulin 3.6 gm/dL Albumin/Globulin Ratio 0.8 L (1.1-1.8) Lipase (23-300) U/L Venous Blood Potassium (3.6-5.2) mmol/L Urine Color (YELLOW) Urine Appearance (CLEAR) Urine pH (4.7-8.0) Ur Specific [place] (1.005-1.035) Urine Protein (<30 mg/dL) mg/dL Urine Glucose (UA) (NEGATIVE) mg/dL Urine Ketones (NEGATIVE) mg/dL Urine Blood (NEGATIVE) Urine Nitrate (NEGATIVE) Urine Bilirubin (NEGATIVE) Urine Urobilinogen (<1 E.U./dL) E.U./dL Ur Leukocyte Esterase (NEGATIVE) Sarah/uL Urine RBC (0-2) /hpf Urine WBC (0-6) /hpf Ur Epithelial Cells (0-5) /hpf Amorphous Sediment (NONE) /hpf Urine Bacteria (NONE) /hpf Urine Other /hpf Influenza Typ A,B (EIA) (NEGATIVE) Blood Type Antibody Screen Crossmatch BBK History Checked 12/24/18 12/23/18 12/23/18 Range/Units 00:30 23:40 22:10 WBC 5.4 (4.5-11.0) 10^3/uL RBC 3.30 L (3.5-6.1) 10^6/uL Hgb 9.8 L D (14.0-18.0) g/dL Hct 30.3 L (42.0-52.0) % MCV 91.8 (80.0-105.0) fl MCH 29.7 (25.0-35.0) pg MCHC 32.3 (31.0-37.0) g/dl RDW 16.2 H (11.5-14.5) % Plt Count 87 L (120.0-450.0) 10^3/uL MPV 9.6 (7.0-11.0) fl Neut % (Auto) (50.0-68.0) % Lymph % (Auto) (22.0-35.0) % [place] % (Auto) (1.0-6.0) % Eos % (Auto) (1.5-5.0) % Baso % (Auto) (0.0-3.0) % Lymph # (Auto) (1.2-3.4) [place] # (Auto) (0.1-0.6) Eos # (Auto) (0.0-0.7) Baso # (Auto) (0.0-2.0) K/mm3 Absolute Neuts (auto) (1.4-6.5) PT (9.4-12.5) SECONDS INR APTT (26.9-38.3) Seconds pO2 (30-55) mm/Hg VBG pH (7.32-7.43) VBG pCO2 (40-60) VBG HCO3 (21-28) mmol/l VBG Total CO2 (22-28) mmol.L VBG O2 Sat (Calc) (40-65) % VBG Base Excess (0.0-2.0) mmol/L VBG Potassium (3.6-5.2) mmol/L Glucose (75-110) mg/dl Lactate (0.7-2.1) mmol/L FiO2 % Crit Value Called To Crit Value Called By Blood Gas Notified Time Sodium (132-148) mmol/L Potassium (3.6-5.0) mmol/L Chloride (98-107) mmol/L Carbon Dioxide (21-33) mmol/L Anion Gap (10-20) BUN (7-21) mg/dL Creatinine (0.8-1.5) mg/dl Est GFR ( Amer) Est GFR (Non-Af Amer) POC Glucose (mg/dL) 65 (65-110) mg/dL Random Glucose (70-110) mg/dL Calcium (8.4-10.5) mg/dL Phosphorus (2.5-4.5) mg/dL Magnesium (1.7-2.2) mg/dL Total Bilirubin (0.2-1.3) mg/dL AST (17-59) U/L ALT (7-56) U/L Alkaline Phosphatase (38-126) U/L Total Creatine Kinase (35-230) U/L CK-MB (CK-2) (0.0-3.6) ng/mL CK-MB (CK-2) % Troponin I ng/mL Total Protein (5.8-8.3) g/dL Albumin (3.0-4.8) g/dL Globulin gm/dL Albumin/Globulin Ratio (1.1-1.8) Lipase (23-300) U/L Venous Blood Potassium (3.6-5.2) mmol/L Urine Color Yellow (YELLOW) Urine Appearance Cloudy (CLEAR) Urine pH 6.5 (4.7-8.0) Ur Specific [place] 1.025 (1.005-1.035) Urine Protein >=300 H (<30 mg/dL) mg/dL Urine Glucose (UA) 100 H (NEGATIVE) mg/dL Urine Ketones Negative (NEGATIVE) mg/dL Urine Blood Large H (NEGATIVE) Urine Nitrate Negative (NEGATIVE) Urine Bilirubin Negative (NEGATIVE) Urine Urobilinogen 0.2 (<1 E.U./dL) E.U./dL Ur Leukocyte Esterase Large H (NEGATIVE) Sarah/uL Urine RBC 2 - 5 H (0-2) /hpf Urine WBC Tntc H (0-6) /hpf Ur Epithelial Cells 0 - 2 (0-5) /hpf Amorphous Sediment (NONE) /hpf Urine Bacteria Mod (NONE) /hpf Urine Other /hpf Influenza Typ A,B (EIA) (NEGATIVE) Blood Type Antibody Screen Crossmatch BBK History Checked 12/23/18 12/23/18 12/23/18 Range/Units 21:17 18:30 16:57 WBC (4.5-11.0) 10^3/uL RBC (3.5-6.1) 10^6/uL Hgb (14.0-18.0) g/dL Hct (42.0-52.0) % MCV (80.0-105.0) fl MCH (25.0-35.0) pg MCHC (31.0-37.0) g/dl RDW (11.5-14.5) % Plt Count (120.0-450.0) 10^3/uL MPV (7.0-11.0) fl Neut % (Auto) (50.0-68.0) % Lymph % (Auto) (22.0-35.0) % [place] % (Auto) (1.0-6.0) % Eos % (Auto) (1.5-5.0) % Baso % (Auto) (0.0-3.0) % Lymph # (Auto) (1.2-3.4) [place] # (Auto) (0.1-0.6) Eos # (Auto) (0.0-0.7) Baso # (Auto) (0.0-2.0) K/mm3 Absolute Neuts (auto) (1.4-6.5) PT (9.4-12.5) SECONDS INR APTT (26.9-38.3) Seconds pO2 (30-55) mm/Hg VBG pH (7.32-7.43) VBG pCO2 (40-60) VBG HCO3 (21-28) mmol/l VBG Total CO2 (22-28) mmol.L VBG O2 Sat (Calc) (40-65) % VBG Base Excess (0.0-2.0) mmol/L VBG Potassium (3.6-5.2) mmol/L Glucose (75-110) mg/dl Lactate (0.7-2.1) mmol/L FiO2 % Crit Value Called To Crit Value Called By Blood Gas Notified Time Sodium (132-148) mmol/L Potassium (3.6-5.0) mmol/L Chloride (98-107) mmol/L Carbon Dioxide (21-33) mmol/L Anion Gap (10-20) BUN (7-21) mg/dL Creatinine (0.8-1.5) mg/dl Est GFR ( Amer) Est GFR (Non-Af Amer) POC Glucose (mg/dL) 75 137 H (65-110) mg/dL Random Glucose (70-110) mg/dL Calcium (8.4-10.5) mg/dL Phosphorus (2.5-4.5) mg/dL Magnesium (1.7-2.2) mg/dL Total Bilirubin (0.2-1.3) mg/dL AST (17-59) U/L ALT (7-56) U/L Alkaline Phosphatase (38-126) U/L Total Creatine Kinase (35-230) U/L CK-MB (CK-2) (0.0-3.6) ng/mL CK-MB (CK-2) % Troponin I ng/mL Total Protein (5.8-8.3) g/dL Albumin (3.0-4.8) g/dL Globulin gm/dL Albumin/Globulin Ratio (1.1-1.8) Lipase (23-300) U/L Venous Blood Potassium (3.6-5.2) mmol/L Urine Color (YELLOW) Urine Appearance (CLEAR) Urine pH (4.7-8.0) Ur Specific [place] (1.005-1.035) Urine Protein (<30 mg/dL) mg/dL Urine Glucose (UA) (NEGATIVE) mg/dL Urine Ketones (NEGATIVE) mg/dL Urine Blood (NEGATIVE) Urine Nitrate (NEGATIVE) Urine Bilirubin (NEGATIVE) Urine Urobilinogen (<1 E.U./dL) E.U./dL Ur Leukocyte Esterase (NEGATIVE) Sarah/uL Urine RBC (0-2) /hpf Urine WBC (0-6) /hpf Ur Epithelial Cells (0-5) /hpf Amorphous Sediment (NONE) /hpf Urine Bacteria (NONE) /hpf Urine Other /hpf Influenza Typ A,B (EIA) Negative for flu a/b (NEGATIVE) Blood Type Antibody Screen Crossmatch BBK History Checked 12/23/18 12/23/18 12/23/18 Range/Units 16:09 14:20 12:10 WBC (4.5-11.0) 10^3/uL RBC (3.5-6.1) 10^6/uL Hgb (14.0-18.0) g/dL Hct (42.0-52.0) % MCV (80.0-105.0) fl MCH (25.0-35.0) pg MCHC (31.0-37.0) g/dl RDW (11.5-14.5) % Plt Count (120.0-450.0) 10^3/uL MPV (7.0-11.0) fl Neut % (Auto) (50.0-68.0) % Lymph % (Auto) (22.0-35.0) % [place] % (Auto) (1.0-6.0) % Eos % (Auto) (1.5-5.0) % Baso % (Auto) (0.0-3.0) % Lymph # (Auto) (1.2-3.4) [place] # (Auto) (0.1-0.6) Eos # (Auto) (0.0-0.7) Baso # (Auto) (0.0-2.0) K/mm3 Absolute Neuts (auto) (1.4-6.5) PT (9.4-12.5) SECONDS INR APTT (26.9-38.3) Seconds pO2 29 L (30-55) mm/Hg VBG pH 7.06 L* (7.32-7.43) VBG pCO2 31.0 L (40-60) VBG HCO3 8.8 L (21-28) mmol/l VBG Total CO2 9.8 L (22-28) mmol.L VBG O2 Sat (Calc) 76.4 H (40-65) % VBG Base Excess -20.4 L (0.0-2.0) mmol/L VBG Potassium 3.6 (3.6-5.2) mmol/L Glucose > 750 H* D (75-110) mg/dl Lactate 2.5 H (0.7-2.1) mmol/L FiO2 21.0 % Crit Value Called To Jose harrison md Crit Value Called By Blood Gas Notified Time 1432 Sodium 112.0 L* (132-148) mmol/L Potassium (3.6-5.0) mmol/L Chloride 84.0 L (98-107) mmol/L Carbon Dioxide (21-33) mmol/L Anion Gap (10-20) BUN (7-21) mg/dL Creatinine (0.8-1.5) mg/dl Est GFR ( Amer) Est GFR (Non-Af Amer) POC Glucose (mg/dL) 66 (65-110) mg/dL Random Glucose (70-110) mg/dL Calcium (8.4-10.5) mg/dL Phosphorus (2.5-4.5) mg/dL Magnesium (1.7-2.2) mg/dL Total Bilirubin (0.2-1.3) mg/dL AST (17-59) U/L ALT (7-56) U/L Alkaline Phosphatase (38-126) U/L Total Creatine Kinase (35-230) U/L CK-MB (CK-2) (0.0-3.6) ng/mL CK-MB (CK-2) % Troponin I ng/mL Total Protein (5.8-8.3) g/dL Albumin (3.0-4.8) g/dL Globulin gm/dL Albumin/Globulin Ratio (1.1-1.8) Lipase (23-300) U/L Venous Blood Potassium 3.6 (3.6-5.2) mmol/L Urine Color Yellow (YELLOW) Urine Appearance Clear (CLEAR) Urine pH 6.5 (4.7-8.0) Ur Specific [place] 1.020 (1.005-1.035) Urine Protein >=300 H (<30 mg/dL) mg/dL Urine Glucose (UA) 100 H (NEGATIVE) mg/dL Urine Ketones Negative (NEGATIVE) mg/dL Urine Blood Large H (NEGATIVE) Urine Nitrate Negative (NEGATIVE) Urine Bilirubin Negative (NEGATIVE) Urine Urobilinogen 0.2 (<1 E.U./dL) E.U./dL Ur Leukocyte Esterase Moderate H (NEGATIVE) Sarah/uL Urine RBC Tntc H (0-2) /hpf Urine WBC Tntc H (0-6) /hpf Ur Epithelial Cells None (0-5) /hpf Amorphous Sediment Moderate (NONE) /hpf Urine Bacteria Large (NONE) /hpf Urine Other Uyeast /hpf Influenza Typ A,B (EIA) (NEGATIVE) Blood Type Antibody Screen Crossmatch BBK History Checked 12/23/18 12/23/18 12/23/18 Range/Units 11:20 10:40 10:40 WBC 5.2 (4.5-11.0) 10^3/uL RBC 4.07 (3.5-6.1) 10^6/uL Hgb 12.3 L (14.0-18.0) g/dL Hct 37.6 L (42.0-52.0) % MCV 92.4 (80.0-105.0) fl MCH 30.2 (25.0-35.0) pg MCHC 32.7 (31.0-37.0) g/dl RDW 16.2 H (11.5-14.5) % Plt Count 116 L (120.0-450.0) 10^3/uL MPV 10.4 (7.0-11.0) fl Neut % (Auto) 73.8 H (50.0-68.0) % Lymph % (Auto) 16.2 L (22.0-35.0) % [place] % (Auto) 9.4 H (1.0-6.0) % Eos % (Auto) 0.0 L (1.5-5.0) % Baso % (Auto) 0.6 (0.0-3.0) % Lymph # (Auto) 0.8 L (1.2-3.4) [place] # (Auto) 0.5 (0.1-0.6) Eos # (Auto) 0.0 (0.0-0.7) Baso # (Auto) 0.03 (0.0-2.0) K/mm3 Absolute Neuts (auto) 3.83 (1.4-6.5) PT 14.4 H (9.4-12.5) SECONDS INR 1.27 APTT 34.9 (26.9-38.3) Seconds pO2 24 L (30-55) mm/Hg VBG pH 7.10 L* (7.32-7.43) VBG pCO2 38.0 L (40-60) VBG HCO3 11.8 L (21-28) mmol/l VBG Total CO2 13.0 L (22-28) mmol.L VBG O2 Sat (Calc) 43.4 (40-65) % VBG Base Excess -17.1 L (0.0-2.0) mmol/L VBG Potassium 5.0 (3.6-5.2) mmol/L Glucose 136 H (75-110) mg/dl Lactate 2.7 H (0.7-2.1) mmol/L FiO2 21.0 % Crit Value Called To Dr harrison Crit Value Called By 3769 Blood Gas Notified Time 1130 Sodium 134.0 (132-148) mmol/L Potassium (3.6-5.0) mmol/L Chloride 108.0 H (98-107) mmol/L Carbon Dioxide (21-33) mmol/L Anion Gap (10-20) BUN (7-21) mg/dL Creatinine (0.8-1.5) mg/dl Est GFR ( Amer) Est GFR (Non-Af Amer) POC Glucose (mg/dL) (65-110) mg/dL Random Glucose (70-110) mg/dL Calcium (8.4-10.5) mg/dL Phosphorus (2.5-4.5) mg/dL Magnesium (1.7-2.2) mg/dL Total Bilirubin (0.2-1.3) mg/dL AST (17-59) U/L ALT (7-56) U/L Alkaline Phosphatase (38-126) U/L Total Creatine Kinase (35-230) U/L CK-MB (CK-2) (0.0-3.6) ng/mL CK-MB (CK-2) % Troponin I ng/mL Total Protein (5.8-8.3) g/dL Albumin (3.0-4.8) g/dL Globulin gm/dL Albumin/Globulin Ratio (1.1-1.8) Lipase (23-300) U/L Venous Blood Potassium 5.0 (3.6-5.2) mmol/L Urine Color (YELLOW) Urine Appearance (CLEAR) Urine pH (4.7-8.0) Ur Specific [place] (1.005-1.035) Urine Protein (<30 mg/dL) mg/dL Urine Glucose (UA) (NEGATIVE) mg/dL Urine Ketones (NEGATIVE) mg/dL Urine Blood (NEGATIVE) Urine Nitrate (NEGATIVE) Urine Bilirubin (NEGATIVE) Urine Urobilinogen (<1 E.U./dL) E.U./dL Ur Leukocyte Esterase (NEGATIVE) Sarah/uL Urine RBC (0-2) /hpf Urine WBC (0-6) /hpf Ur Epithelial Cells (0-5) /hpf Amorphous Sediment (NONE) /hpf Urine Bacteria (NONE) /hpf Urine Other /hpf Influenza Typ A,B (EIA) (NEGATIVE) Blood Type Antibody Screen Crossmatch BBK History Checked 12/23/18 12/23/18 Range/Units 10:40 10:40 WBC (4.5-11.0) 10^3/uL RBC (3.5-6.1) 10^6/uL Hgb (14.0-18.0) g/dL Hct (42.0-52.0) % MCV (80.0-105.0) fl MCH (25.0-35.0) pg MCHC (31.0-37.0) g/dl RDW (11.5-14.5) % Plt Count (120.0-450.0) 10^3/uL MPV (7.0-11.0) fl Neut % (Auto) (50.0-68.0) % Lymph % (Auto) (22.0-35.0) % [place] % (Auto) (1.0-6.0) % Eos % (Auto) (1.5-5.0) % Baso % (Auto) (0.0-3.0) % Lymph # (Auto) (1.2-3.4) [place] # (Auto) (0.1-0.6) Eos # (Auto) (0.0-0.7) Baso # (Auto) (0.0-2.0) K/mm3 Absolute Neuts (auto) (1.4-6.5) PT (9.4-12.5) SECONDS INR APTT (26.9-38.3) Seconds pO2 (30-55) mm/Hg VBG pH (7.32-7.43) VBG pCO2 (40-60) VBG HCO3 (21-28) mmol/l VBG Total CO2 (22-28) mmol.L VBG O2 Sat (Calc) (40-65) % VBG Base Excess (0.0-2.0) mmol/L VBG Potassium (3.6-5.2) mmol/L Glucose (75-110) mg/dl Lactate (0.7-2.1) mmol/L FiO2 % Crit Value Called To Crit Value Called By Blood Gas Notified Time Sodium 137 (132-148) mmol/L Potassium 4.9 (3.6-5.0) mmol/L Chloride 108 H (98-107) mmol/L Carbon Dioxide 14 L (21-33) mmol/L Anion Gap 20 (10-20) BUN 83 H (7-21) mg/dL Creatinine 11.3 H* D (0.8-1.5) mg/dl Est GFR ( Amer) 5 Est GFR (Non-Af Amer) 5 POC Glucose (mg/dL) (65-110) mg/dL Random Glucose 127 H (70-110) mg/dL Calcium 8.6 (8.4-10.5) mg/dL Phosphorus 7.1 H (2.5-4.5) mg/dL Magnesium 1.7 (1.7-2.2) mg/dL Total Bilirubin 0.4 (0.2-1.3) mg/dL AST 23 (17-59) U/L ALT 11 (7-56) U/L Alkaline Phosphatase 67 (38-126) U/L Total Creatine Kinase 234 H (35-230) U/L CK-MB (CK-2) 1.9 (0.0-3.6) ng/mL CK-MB (CK-2) % Cancelled Troponin I 0.07 ng/mL Total Protein 8.0 (5.8-8.3) g/dL Albumin 3.9 (3.0-4.8) g/dL Globulin 4.1 gm/dL Albumin/Globulin Ratio 1.0 L (1.1-1.8) Lipase 276 (23-300) U/L Venous Blood Potassium (3.6-5.2) mmol/L Urine Color (YELLOW) Urine Appearance (CLEAR) Urine pH (4.7-8.0) Ur Specific [place] (1.005-1.035) Urine Protein (<30 mg/dL) mg/dL Urine Glucose (UA) (NEGATIVE) mg/dL Urine Ketones (NEGATIVE) mg/dL Urine Blood (NEGATIVE) Urine Nitrate (NEGATIVE) Urine Bilirubin (NEGATIVE) Urine Urobilinogen (<1 E.U./dL) E.U./dL Ur Leukocyte Esterase (NEGATIVE) Sarah/uL Urine RBC (0-2) /hpf Urine WBC (0-6) /hpf Ur Epithelial Cells (0-5) /hpf Amorphous Sediment (NONE) /hpf Urine Bacteria (NONE) /hpf Urine Other /hpf Influenza Typ A,B (EIA) (NEGATIVE) Blood Type A POSITIVE Antibody Screen Negative Crossmatch See Detail BBK History Checked Patient has bt Laboratory Results - last 24 hr 12/23/18 12/23/18 12/23/18 10:40 10:40 10:40 WBC 5.2 RBC 4.07 Hgb 12.3 L Hct 37.6 L MCV 92.4 MCH 30.2 MCHC 32.7 RDW 16.2 H Plt Count 116 L MPV 10.4 Neut % (Auto) 73.8 H Lymph % (Auto) 16.2 L [place] % (Auto) 9.4 H Eos % (Auto) 0.0 L Baso % (Auto) 0.6 Lymph # (Auto) 0.8 L [place] # (Auto) 0.5 Eos # (Auto) 0.0 Baso # (Auto) 0.03 Absolute Neuts (auto) 3.83 PT INR APTT pO2 VBG pH VBG pCO2 VBG HCO3 VBG Total CO2 VBG O2 Sat (Calc) VBG Base Excess VBG Potassium Glucose Lactate FiO2 Crit Value Called To Crit Value Called By Blood Gas Notified Time Sodium 137 Potassium 4.9 Chloride 108 H Carbon Dioxide 14 L Anion Gap 20 BUN 83 H Creatinine 11.3 H* D Est GFR ( Amer) 5 Est GFR (Non-Af Amer) 5 POC Glucose (mg/dL) Random Glucose 127 H Calcium 8.6 Phosphorus 7.1 H Magnesium 1.7 Total Bilirubin 0.4 AST 23 ALT 11 Alkaline Phosphatase 67 Total Creatine Kinase 234 H CK-MB (CK-2) 1.9 CK-MB (CK-2) % Cancelled Troponin I 0.07 Total Protein 8.0 Albumin 3.9 Globulin 4.1 Albumin/Globulin Ratio 1.0 L Lipase 276 Venous Blood Potassium Urine Color Urine Appearance Urine pH Ur Specific [place] Urine Protein Urine Glucose (UA) Urine Ketones Urine Blood Urine Nitrate Urine Bilirubin Urine Urobilinogen Ur Leukocyte Esterase Urine RBC Urine WBC Ur Epithelial Cells Amorphous Sediment Urine Bacteria Urine Other Influenza Typ A,B (EIA) Blood Type A POSITIVE Antibody Screen Negative Crossmatch See Detail BBK History Checked Patient has bt 12/23/18 12/23/18 12/23/18 10:40 11:20 12:10 WBC RBC Hgb Hct MCV MCH MCHC RDW Plt Count MPV Neut % (Auto) Lymph % (Auto) [place] % (Auto) Eos % (Auto) Baso % (Auto) Lymph # (Auto) [place] # (Auto) Eos # (Auto) Baso # (Auto) Absolute Neuts (auto) PT 14.4 H INR 1.27 APTT 34.9 pO2 24 L VBG pH 7.10 L* VBG pCO2 38.0 L VBG HCO3 11.8 L VBG Total CO2 13.0 L VBG O2 Sat (Calc) 43.4 VBG Base Excess -17.1 L VBG Potassium 5.0 Glucose 136 H Lactate 2.7 H FiO2 21.0 Crit Value Called To Dr harrison Crit Value Called By [id number] Blood Gas Notified Time 1130 Sodium 134.0 Potassium Chloride 108.0 H Carbon Dioxide Anion Gap BUN Creatinine Est GFR ( Amer) Est GFR (Non-Af Amer) POC Glucose (mg/dL) Random Glucose Calcium Phosphorus Magnesium Total Bilirubin AST ALT Alkaline Phosphatase Total Creatine Kinase CK-MB (CK-2) CK-MB (CK-2) % Troponin I Total Protein Albumin Globulin Albumin/Globulin Ratio Lipase Venous Blood Potassium 5.0 Urine Color Yellow Urine Appearance Clear Urine pH 6.5 Ur Specific [place] 1.020 Urine Protein >=300 H Urine Glucose (UA) 100 H Urine Ketones Negative Urine Blood Large H Urine Nitrate Negative Urine Bilirubin Negative Urine Urobilinogen 0.2 Ur Leukocyte Esterase Moderate H Urine RBC Tntc H Urine WBC Tntc H Ur Epithelial Cells None Amorphous Sediment Moderate Urine Bacteria Large Urine Other Uyeast Influenza Typ A,B (EIA) Blood Type Antibody Screen Crossmatch BBK History Checked 03/06/19 03/06/19 03/06/19 14:20 16:09 16:57 WBC RBC Hgb Hct MCV MCH MCHC RDW Plt Count MPV Neut % (Auto) Lymph % (Auto) [place] % (Auto) Eos % (Auto) Baso % (Auto) Lymph # (Auto) [place] # (Auto) Eos # (Auto) Baso # (Auto) Absolute Neuts (auto) PT INR APTT pO2 29 L VBG pH 7.06 L* VBG pCO2 31.0 L VBG HCO3 8.8 L VBG Total CO2 9.8 L VBG O2 Sat (Calc) 76.4 H VBG Base Excess -20.4 L VBG Potassium 3.6 Glucose > 750 H* D Lactate 2.5 H FiO2 21.0 Crit Value Called To Jose harrison md Crit Value Called By Blood Gas Notified Time 1432 Sodium 112.0 L* Potassium Chloride 84.0 L Carbon Dioxide Anion Gap BUN Creatinine Est GFR ( Amer) Est GFR (Non-Af Amer) POC Glucose (mg/dL) 66 137 H Random Glucose Calcium Phosphorus Magnesium Total Bilirubin AST ALT Alkaline Phosphatase Total Creatine Kinase CK-MB (CK-2) CK-MB (CK-2) % Troponin I Total Protein Albumin Globulin Albumin/Globulin Ratio Lipase Venous Blood Potassium 3.6 Urine Color Urine Appearance Urine pH Ur Specific [place] Urine Protein Urine Glucose (UA) Urine Ketones Urine Blood Urine Nitrate Urine Bilirubin Urine Urobilinogen Ur Leukocyte Esterase Urine RBC Urine WBC Ur Epithelial Cells Amorphous Sediment Urine Bacteria Urine Other Influenza Typ A,B (EIA) Blood Type Antibody Screen Crossmatch BBK History Checked 12/23/18 12/23/18 12/23/18 18:30 21:17 22:10 WBC 5.4 RBC 3.30 L Hgb 9.8 L D Hct 30.3 L MCV 91.8 MCH 29.7 MCHC 32.3 RDW 16.2 H Plt Count 87 L MPV 9.6 Neut % (Auto) Lymph % (Auto) [place] % (Auto) Eos % (Auto) Baso % (Auto) Lymph # (Auto) [place] # (Auto) Eos # (Auto) Baso # (Auto) Absolute Neuts (auto) PT INR APTT pO2 VBG pH VBG pCO2 VBG HCO3 VBG Total CO2 VBG O2 Sat (Calc) VBG Base Excess VBG Potassium Glucose Lactate FiO2 Crit Value Called To Crit Value Called By Blood Gas Notified Time Sodium Potassium Chloride Carbon Dioxide Anion Gap BUN Creatinine Est GFR ( Amer) Est GFR (Non-Af Amer) POC Glucose (mg/dL) 75 Random Glucose Calcium Phosphorus Magnesium Total Bilirubin AST ALT Alkaline Phosphatase Total Creatine Kinase CK-MB (CK-2) CK-MB (CK-2) % Troponin I Total Protein Albumin Globulin Albumin/Globulin Ratio Lipase Venous Blood Potassium Urine Color Urine Appearance Urine pH Ur Specific [place] Urine Protein Urine Glucose (UA) Urine Ketones Urine Blood Urine Nitrate Urine Bilirubin Urine Urobilinogen Ur Leukocyte Esterase Urine RBC Urine WBC Ur Epithelial Cells Amorphous Sediment Urine Bacteria Urine Other Influenza Typ A,B (EIA) Negative for flu a/b Blood Type Antibody Screen Crossmatch BBK History Checked 12/23/18 12/24/18 12/24/18 23:40 00:30 05:30 WBC 3.6 L D RBC 3.69 Hgb 10.8 L Hct 33.6 L MCV 91.1 MCH 29.3 MCHC 32.1 RDW 16.1 H Plt Count 79 L MPV 10.1 Neut % (Auto) 64.7 Lymph % (Auto) 26.4 [place] % (Auto) 7.7 H Eos % (Auto) 0.6 L Baso % (Auto) 0.6 Lymph # (Auto) 1.0 L [place] # (Auto) 0.3 Eos # (Auto) 0.0 Baso # (Auto) 0.02 Absolute Neuts (auto) 2.35 PT INR APTT pO2 VBG pH VBG pCO2 VBG HCO3 VBG Total CO2 VBG O2 Sat (Calc) VBG Base Excess VBG Potassium Glucose Lactate FiO2 Crit Value Called To Crit Value Called By Blood Gas Notified Time Sodium Potassium Chloride Carbon Dioxide Anion Gap BUN Creatinine Est GFR ( Amer) Est GFR (Non-Af Amer) POC Glucose (mg/dL) 65 Random Glucose Calcium Phosphorus Magnesium Total Bilirubin AST ALT Alkaline Phosphatase Total Creatine Kinase CK-MB (CK-2) CK-MB (CK-2) % Troponin I Total Protein Albumin Globulin Albumin/Globulin Ratio Lipase Venous Blood Potassium Urine Color Yellow Urine Appearance Cloudy Urine pH 6.5 Ur Specific [place] 1.025 Urine Protein >=300 H Urine Glucose (UA) 100 H Urine Ketones Negative Urine Blood Large H Urine Nitrate Negative Urine Bilirubin Negative Urine Urobilinogen 0.2 Ur Leukocyte Esterase Large H Urine RBC 2 - 5 H Urine WBC Tntc H Ur Epithelial Cells 0 - 2 Amorphous Sediment Urine Bacteria Mod Urine Other Influenza Typ A,B (EIA) Blood Type Antibody Screen Crossmatch BBK History Checked 12/24/18 12/24/18 05:30 07:24 WBC RBC Hgb Hct MCV MCH MCHC RDW Plt Count MPV Neut % (Auto) Lymph % (Auto) [place] % (Auto) Eos % (Auto) Baso % (Auto) Lymph # (Auto) [place] # (Auto) Eos # (Auto) Baso # (Auto) Absolute Neuts (auto) PT INR APTT pO2 VBG pH VBG pCO2 VBG HCO3 VBG Total CO2 VBG O2 Sat (Calc) VBG Base Excess VBG Potassium Glucose Lactate FiO2 Crit Value Called To Crit Value Called By Blood Gas Notified Time Sodium 136 Potassium 4.1 Chloride 113 H Carbon Dioxide 12 L Anion Gap 16 BUN 83 H Creatinine 11.0 H* Est GFR ( Amer) 6 Est GFR (Non-Af Amer) 5 POC Glucose (mg/dL) 65 Random Glucose 77 Calcium 7.2 L Phosphorus Magnesium Total Bilirubin 0.3 AST 24 ALT 7 Alkaline Phosphatase 51 Total Creatine Kinase CK-MB (CK-2) CK-MB (CK-2) % Troponin I Total Protein 6.6 Albumin 3.0 Globulin 3.6 Albumin/Globulin Ratio 0.8 L Lipase Venous Blood Potassium Urine Color Urine Appearance Urine pH Ur Specific [place] Urine Protein Urine Glucose (UA) Urine Ketones Urine Blood Urine Nitrate Urine Bilirubin Urine Urobilinogen Ur Leukocyte Esterase Urine RBC Urine WBC Ur Epithelial Cells Amorphous Sediment Urine Bacteria Urine Other Influenza Typ A,B (EIA) Blood Type Antibody Screen Crossmatch BBK History Checked Radiology Impressions: Radiology Impressions Chest X-Ray 12/23/18 10:52 IMPRESSION: No active disease. EKG/Cardiology Studies: Cardiology / EKG Studies 12/23/18 10:39 EKG [ELECTROCARDIOGRAM] Stat Comment: Reason For Exam: GI BLEED 12/23/18 18:21 EKG [ELECTROCARDIOGRAM] Stat Comment: Reason For Exam: rapid heart rate 12/24/18 07:00 EKG [ELECTROCARDIOGRAM] Routine Comment: Reason For Exam: aflutter PRE OP:: N Does Patient Have a Pacemaker?: Yes Fingerstick Blood Sugar Results: 75 Critical Care Progress Note - Nutrition Nutrition: Nutrition Category Date Time Status Renal Diet [DIET] Diets 12/23/18 Dinner Ordered Assessment/Plan - Assessment and Plan (Free Text) Assessment: Pt is a 68 yo M with pmhx of coronary artery disease, anal fistula, CKD, neurogenic bladder, recurrent UTI's, right hydronephrosis w/ stones, PVD, diabetes, colonic fistula, hernia, and colostomy who presents to the ER for compliant of rectal bleeding x2days. ICU consulted due to the pt being tachy, and BRBPR. 1. Tachycardia 2. BRBPR 3. ARF on CKD Plan: Neuro: - AOx3 Cadio: Tachycardia likely 2/2 dehydration vs GI Bleed - Repeat EKG showed aflutter in 150s - IVF @ 80/hr - Maintain MAP >65 - Increased PO lopressor to 50 q8 with BP and HR holding parameters - Pt denies chest pain or diaphoresis - Cardio consulted - Cont to monitor Pulm: - Maintain O2 sat >92 GI: BRBPR: - Pt states that it is painless bleed - Denies hematochezia or melena - Pt had no bloody BMs overnight per nursing - C. Diff pending - GI Consulted, recs appreciated - Hg:now 10.8 - f/u cbc in AM and cont to monitor - IVF, bolus and maintaince @80/hr Heme: Anemia s/p 1u pRBC transfusion: - Pt is back to baseline Hg - Pt was transfused 1 unit pRBC overnight and responded appropriately - Pt had no bloody BMs overnight per nursing Nephro: ARF on CKD: - IVF hydration - Nephro consulted Endo: - Maintain euglycemia Case seen and discussed with Dr. Ijeoma Maurer, PGY1 <Florecita Raphael - Last Filed: 12/24/18 17:02> CCU Objective - Vital Signs / Intake & Output Vital Signs (Last 4 hours): Vital Signs Pulse Resp BP Pulse Ox 12/24/18 16:00 97 H 25 H 98 12/24/18 14:00 112 H 24 96 12/24/18 13:34 100 H 25 H 133/58 L 97 12/24/18 13:33 98 H 144/56 L 12/24/18 13:08 99 H 30 H 144/56 L 92 L Intake and Output (Last 8hrs): Intake & Output 12/24/18 12/24/18 12/24/18 06:59 14:59 22:59 Intake Total 1445 Output Total 200 Balance 1245 Weight 85.729 kg Intake: IV 960 Right Upper arm 960 Oral 60 Blood Product 325 Other 100 Output: Urine 200 2-way Urethral 200 Other: # Bowel Movements 2 - Medications Active Medications: Active Medications Generic Name Dose Route Start Last Admin Trade Name Freq PRN Reason Stop Dose Admin Arformoterol Tartrate 15 mcg 12/24/18 20:00 Brovana IH [id number] NESHA Budesonide 0.5 mg 12/24/18 20:00 Pulmicort Respules IH [id number] NESHA Calcium Acetate 667 mg 12/24/18 12:00 12/24/18 13:33 Phoslo PO 667 mg WM NESHA Administration Dextrose 0 ml 12/23/18 16:45 Dextrose 50% Inj IV STAT PRN Hypoglycemia Protocol Protocol Digoxin 0.25 mg 12/24/18 18:00 Lanoxin IV 12/25/18 00:01 Q6H NESHA Sodium Bicarbonate 75 meq/ 1,075 mls @ 80 mls/hr 12/23/18 14:30 12/24/18 08:44 Sodium Chloride IV 80 mls/hr .[id number] NESHA Administration Dextrose 1,000 mls @ 0 mls/hr 12/23/18 16:45 Dextrose 5% In Water 1000 Ml IV .Q0M PRN Hypoglycemia Protocol Protocol Per Protocol Meropenem 250 mg/ Sodium 100 mls @ 100 mls/hr 12/23/18 20:30 12/24/18 08:39 Chloride IVPB 01/01/19 20:31 100 mls/hr Q12H NESHA Administration Protocol Insulin Human Lispro 0 units 12/23/18 22:00 12/24/18 12:17 Humalog Low SC Not Given ACHS NESHA Protocol Metoprolol Tartrate 50 mg 12/24/18 10:00 12/24/18 13:33 Lopressor PO 50 mg Q8 NESHA Administration Nystatin 0 gm 12/24/18 10:00 12/24/18 09:27 Nystop Topical Powder TOP 1 applic BID NESHA Administration Sodium Bicarbonate 650 mg 12/24/18 12:00 12/24/18 13:33 Sodium Bicarbonate Tab PO 650 mg Q6 NESHA Administration - Patient Studies Lab Studies: Microbiology Studies 12/23/18 13:00 Blood Culture - Preliminary Blood-Venous NO GROWTH AFTER 24 HOURS 12/23/18 12:30 Blood Culture - Preliminary Blood-Venous NO GROWTH AFTER 24 HOURS 12/23/18 12:10 Urine Culture - Preliminary Urine Random Gram Negative Aurelio 12/24/18 08:40 C. difficile Antigen & Toxins A,B - Final Stool Lab Studies 12/24/18 12/24/18 12/24/18 Range/Units 15:40 07:24 05:30 WBC (4.5-11.0) 10^3/uL RBC (3.5-6.1) 10^6/uL Hgb (14.0-18.0) g/dL Hct (42.0-52.0) % MCV (80.0-105.0) fl MCH (25.0-35.0) pg MCHC (31.0-37.0) g/dl RDW (11.5-14.5) % Plt Count (120.0-450.0) 10^3/uL MPV (7.0-11.0) fl Neut % (Auto) (50.0-68.0) % Lymph % (Auto) (22.0-35.0) % [place] % (Auto) (1.0-6.0) % Eos % (Auto) (1.5-5.0) % Baso % (Auto) (0.0-3.0) % Lymph # (Auto) (1.2-3.4) [place] # (Auto) (0.1-0.6) Eos # (Auto) (0.0-0.7) Baso # (Auto) (0.0-2.0) K/mm3 Absolute Neuts (auto) (1.4-6.5) pO2 49 (30-55) mm/Hg VBG pH 7.19 L* (7.32-7.43) VBG pCO2 35.0 L (40-60) VBG HCO3 13.4 L (21-28) mmol/l VBG Total CO2 14.5 L (22-28) mmol.L VBG O2 Sat (Calc) 86.8 H (40-65) % VBG Base Excess -13.8 L (0.0-2.0) mmol/L VBG Potassium 4.1 (3.6-5.2) mmol/L Glucose 79 (75-110) mg/dl Lactate 1.2 (0.7-2.1) mmol/L FiO2 21.0 % Crit Value Called To Ana olson Crit Value Called By Atc Blood Gas Notified Time 1550 Sodium 135.0 (132-148) mmol/L Potassium (3.6-5.0) mmol/L Chloride 110.0 H (98-107) mmol/L Carbon Dioxide (21-33) mmol/L Anion Gap (10-20) BUN (7-21) mg/dL Creatinine (0.8-1.5) mg/dl Est GFR ( Amer) Est GFR (Non-Af Amer) POC Glucose (mg/dL) 65 (65-110) mg/dL Random Glucose (70-110) mg/dL Hemoglobin A1c 5.4 (4.2-6.5) % Calcium (8.4-10.5) mg/dL Total Bilirubin (0.2-1.3) mg/dL AST (17-59) U/L ALT (7-56) U/L Alkaline Phosphatase (38-126) U/L Total Protein (5.8-8.3) g/dL Albumin (3.0-4.8) g/dL Globulin gm/dL Albumin/Globulin Ratio (1.1-1.8) Venous Blood Potassium 4.1 (3.6-5.2) mmol/L Urine Color (YELLOW) Urine Appearance (CLEAR) Urine pH (4.7-8.0) Ur Specific [place] (1.005-1.035) Urine Protein (<30 mg/dL) mg/dL Urine Glucose (UA) (NEGATIVE) mg/dL Urine Ketones (NEGATIVE) mg/dL Urine Blood (NEGATIVE) Urine Nitrate (NEGATIVE) Urine Bilirubin (NEGATIVE) Urine Urobilinogen (<1 E.U./dL) E.U./dL Ur Leukocyte Esterase (NEGATIVE) Sarah/uL Urine RBC (0-2) /hpf Urine WBC (0-6) /hpf Ur Epithelial Cells (0-5) /hpf Urine Bacteria (NONE) /hpf Influenza Typ A,B (EIA) (NEGATIVE) Blood Type Antibody Screen Crossmatch BBK History Checked 12/24/18 12/24/18 12/24/18 Range/Units 05:30 05:30 00:30 WBC 3.6 L D (4.5-11.0) 10^3/uL RBC 3.69 (3.5-6.1) 10^6/uL Hgb 10.8 L (14.0-18.0) g/dL Hct 33.6 L (42.0-52.0) % MCV 91.1 (80.0-105.0) fl MCH 29.3 (25.0-35.0) pg MCHC 32.1 (31.0-37.0) g/dl RDW 16.1 H (11.5-14.5) % Plt Count 79 L (120.0-450.0) 10^3/uL MPV 10.1 (7.0-11.0) fl Neut % (Auto) 64.7 (50.0-68.0) % Lymph % (Auto) 26.4 (22.0-35.0) % [place] % (Auto) 7.7 H (1.0-6.0) % Eos % (Auto) 0.6 L (1.5-5.0) % Baso % (Auto) 0.6 (0.0-3.0) % Lymph # (Auto) 1.0 L (1.2-3.4) [place] # (Auto) 0.3 (0.1-0.6) Eos # (Auto) 0.0 (0.0-0.7) Baso # (Auto) 0.02 (0.0-2.0) K/mm3 Absolute Neuts (auto) 2.35 (1.4-6.5) pO2 (30-55) mm/Hg VBG pH (7.32-7.43) VBG pCO2 (40-60) VBG HCO3 (21-28) mmol/l VBG Total CO2 (22-28) mmol.L VBG O2 Sat (Calc) (40-65) % VBG Base Excess (0.0-2.0) mmol/L VBG Potassium (3.6-5.2) mmol/L Glucose (75-110) mg/dl Lactate (0.7-2.1) mmol/L FiO2 % Crit Value Called To Crit Value Called By Blood Gas Notified Time Sodium 136 (132-148) mmol/L Potassium 4.1 (3.6-5.0) mmol/L Chloride 113 H (98-107) mmol/L Carbon Dioxide 12 L (21-33) mmol/L Anion Gap 16 (10-20) BUN 83 H (7-21) mg/dL Creatinine 11.0 H* (0.8-1.5) mg/dl Est GFR ( Amer) 6 Est GFR (Non-Af Amer) 5 POC Glucose (mg/dL) (65-110) mg/dL Random Glucose 77 (70-110) mg/dL Hemoglobin A1c (4.2-6.5) % Calcium 7.2 L (8.4-10.5) mg/dL Total Bilirubin 0.3 (0.2-1.3) mg/dL AST 24 (17-59) U/L ALT 7 (7-56) U/L Alkaline Phosphatase 51 (38-126) U/L Total Protein 6.6 (5.8-8.3) g/dL Albumin 3.0 (3.0-4.8) g/dL Globulin 3.6 gm/dL Albumin/Globulin Ratio 0.8 L (1.1-1.8) Venous Blood Potassium (3.6-5.2) mmol/L Urine Color Yellow (YELLOW) Urine Appearance Cloudy (CLEAR) Urine pH 6.5 (4.7-8.0) Ur Specific [place] 1.025 (1.005-1.035) Urine Protein >=300 H (<30 mg/dL) mg/dL Urine Glucose (UA) 100 H (NEGATIVE) mg/dL Urine Ketones Negative (NEGATIVE) mg/dL Urine Blood Large H (NEGATIVE) Urine Nitrate Negative (NEGATIVE) Urine Bilirubin Negative (NEGATIVE) Urine Urobilinogen 0.2 (<1 E.U./dL) E.U./dL Ur Leukocyte Esterase Large H (NEGATIVE) Sarah/uL Urine RBC 2 - 5 H (0-2) /hpf Urine WBC Tntc H (0-6) /hpf Ur Epithelial Cells 0 - 2 (0-5) /hpf Urine Bacteria Mod (NONE) /hpf Influenza Typ A,B (EIA) (NEGATIVE) Blood Type Antibody Screen Crossmatch BBK History Checked 12/23/18 12/23/18 12/23/18 Range/Units 23:40 22:10 21:17 WBC 5.4 (4.5-11.0) 10^3/uL RBC 3.30 L (3.5-6.1) 10^6/uL Hgb 9.8 L D (14.0-18.0) g/dL Hct 30.3 L (42.0-52.0) % MCV 91.8 (80.0-105.0) fl MCH 29.7 (25.0-35.0) pg MCHC 32.3 (31.0-37.0) g/dl RDW 16.2 H (11.5-14.5) % Plt Count 87 L (120.0-450.0) 10^3/uL MPV 9.6 (7.0-11.0) fl Neut % (Auto) (50.0-68.0) % Lymph % (Auto) (22.0-35.0) % [place] % (Auto) (1.0-6.0) % Eos % (Auto) (1.5-5.0) % Baso % (Auto) (0.0-3.0) % Lymph # (Auto) (1.2-3.4) [place] # (Auto) (0.1-0.6) Eos # (Auto) (0.0-0.7) Baso # (Auto) (0.0-2.0) K/mm3 Absolute Neuts (auto) (1.4-6.5) pO2 (30-55) mm/Hg VBG pH (7.32-7.43) VBG pCO2 (40-60) VBG HCO3 (21-28) mmol/l VBG Total CO2 (22-28) mmol.L VBG O2 Sat (Calc) (40-65) % VBG Base Excess (0.0-2.0) mmol/L VBG Potassium (3.6-5.2) mmol/L Glucose (75-110) mg/dl Lactate (0.7-2.1) mmol/L FiO2 % Crit Value Called To Crit Value Called By Blood Gas Notified Time Sodium (132-148) mmol/L Potassium (3.6-5.0) mmol/L Chloride (98-107) mmol/L Carbon Dioxide (21-33) mmol/L Anion Gap (10-20) BUN (7-21) mg/dL Creatinine (0.8-1.5) mg/dl Est GFR ( Amer) Est GFR (Non-Af Amer) POC Glucose (mg/dL) 65 75 (65-110) mg/dL Random Glucose (70-110) mg/dL Hemoglobin A1c (4.2-6.5) % Calcium (8.4-10.5) mg/dL Total Bilirubin (0.2-1.3) mg/dL AST (17-59) U/L ALT (7-56) U/L Alkaline Phosphatase (38-126) U/L Total Protein (5.8-8.3) g/dL Albumin (3.0-4.8) g/dL Globulin gm/dL Albumin/Globulin Ratio (1.1-1.8) Venous Blood Potassium (3.6-5.2) mmol/L Urine Color (YELLOW) Urine Appearance (CLEAR) Urine pH (4.7-8.0) Ur Specific [place] (1.005-1.035) Urine Protein (<30 mg/dL) mg/dL Urine Glucose (UA) (NEGATIVE) mg/dL Urine Ketones (NEGATIVE) mg/dL Urine Blood (NEGATIVE) Urine Nitrate (NEGATIVE) Urine Bilirubin (NEGATIVE) Urine Urobilinogen (<1 E.U./dL) E.U./dL Ur Leukocyte Esterase (NEGATIVE) Sarah/uL Urine RBC (0-2) /hpf Urine WBC (0-6) /hpf Ur Epithelial Cells (0-5) /hpf Urine Bacteria (NONE) /hpf Influenza Typ A,B (EIA) (NEGATIVE) Blood Type Antibody Screen Crossmatch BBK History Checked 12/23/18 12/23/18 12/23/18 Range/Units 18:30 16:57 10:40 WBC (4.5-11.0) 10^3/uL RBC (3.5-6.1) 10^6/uL Hgb (14.0-18.0) g/dL Hct (42.0-52.0) % MCV (80.0-105.0) fl MCH (25.0-35.0) pg MCHC (31.0-37.0) g/dl RDW (11.5-14.5) % Plt Count (120.0-450.0) 10^3/uL MPV (7.0-11.0) fl Neut % (Auto) (50.0-68.0) % Lymph % (Auto) (22.0-35.0) % [place] % (Auto) (1.0-6.0) % Eos % (Auto) (1.5-5.0) % Baso % (Auto) (0.0-3.0) % Lymph # (Auto) (1.2-3.4) [place] # (Auto) (0.1-0.6) Eos # (Auto) (0.0-0.7) Baso # (Auto) (0.0-2.0) K/mm3 Absolute Neuts (auto) (1.4-6.5) pO2 (30-55) mm/Hg VBG pH (7.32-7.43) VBG pCO2 (40-60) VBG HCO3 (21-28) mmol/l VBG Total CO2 (22-28) mmol.L VBG O2 Sat (Calc) (40-65) % VBG Base Excess (0.0-2.0) mmol/L VBG Potassium (3.6-5.2) mmol/L Glucose (75-110) mg/dl Lactate (0.7-2.1) mmol/L FiO2 % Crit Value Called To Crit Value Called By Blood Gas Notified Time Sodium (132-148) mmol/L Potassium (3.6-5.0) mmol/L Chloride (98-107) mmol/L Carbon Dioxide (21-33) mmol/L Anion Gap (10-20) BUN (7-21) mg/dL Creatinine (0.8-1.5) mg/dl Est GFR ( Amer) Est GFR (Non-Af Amer) POC Glucose (mg/dL) 137 H (65-110) mg/dL Random Glucose (70-110) mg/dL Hemoglobin A1c (4.2-6.5) % Calcium (8.4-10.5) mg/dL Total Bilirubin (0.2-1.3) mg/dL AST (17-59) U/L ALT (7-56) U/L Alkaline Phosphatase (38-126) U/L Total Protein (5.8-8.3) g/dL Albumin (3.0-4.8) g/dL Globulin gm/dL Albumin/Globulin Ratio (1.1-1.8) Venous Blood Potassium (3.6-5.2) mmol/L Urine Color (YELLOW) Urine Appearance (CLEAR) Urine pH (4.7-8.0) Ur Specific [place] (1.005-1.035) Urine Protein (<30 mg/dL) mg/dL Urine Glucose (UA) (NEGATIVE) mg/dL Urine Ketones (NEGATIVE) mg/dL Urine Blood (NEGATIVE) Urine Nitrate (NEGATIVE) Urine Bilirubin (NEGATIVE) Urine Urobilinogen (<1 E.U./dL) E.U./dL Ur Leukocyte Esterase (NEGATIVE) Sarah/uL Urine RBC (0-2) /hpf Urine WBC (0-6) /hpf Ur Epithelial Cells (0-5) /hpf Urine Bacteria (NONE) /hpf Influenza Typ A,B (EIA) Negative for flu a/b (NEGATIVE) Blood Type A POSITIVE Antibody Screen Negative Crossmatch See Detail BBK History Checked Patient has bt Laboratory Results - last 24 hr 12/23/18 12/23/18 12/23/18 10:40 16:57 18:30 WBC RBC Hgb Hct MCV MCH MCHC RDW Plt Count MPV Neut % (Auto) Lymph % (Auto) [place] % (Auto) Eos % (Auto) Baso % (Auto) Lymph # (Auto) [place] # (Auto) Eos # (Auto) Baso # (Auto) Absolute Neuts (auto) pO2 VBG pH VBG pCO2 VBG HCO3 VBG Total CO2 VBG O2 Sat (Calc) VBG Base Excess VBG Potassium Glucose Lactate FiO2 Crit Value Called To Crit Value Called By Blood Gas Notified Time Sodium Potassium Chloride Carbon Dioxide Anion Gap BUN Creatinine Est GFR ( Amer) Est GFR (Non-Af Amer) POC Glucose (mg/dL) 137 H Random Glucose Hemoglobin A1c Calcium Total Bilirubin AST ALT Alkaline Phosphatase Total Protein Albumin Globulin Albumin/Globulin Ratio Venous Blood Potassium Urine Color Urine Appearance Urine pH Ur Specific [place] Urine Protein Urine Glucose (UA) Urine Ketones Urine Blood Urine Nitrate Urine Bilirubin Urine Urobilinogen Ur Leukocyte Esterase Urine RBC Urine WBC Ur Epithelial Cells Urine Bacteria Influenza Typ A,B (EIA) Negative for flu a/b Blood Type A POSITIVE Antibody Screen Negative Crossmatch See Detail BBK History Checked Patient has bt 12/23/18 12/23/18 12/23/18 21:17 22:10 23:40 WBC 5.4 RBC 3.30 L Hgb 9.8 L D Hct 30.3 L MCV 91.8 MCH 29.7 MCHC 32.3 RDW 16.2 H Plt Count 87 L MPV 9.6 Neut % (Auto) Lymph % (Auto) [place] % (Auto) Eos % (Auto) Baso % (Auto) Lymph # (Auto) [place] # (Auto) Eos # (Auto) Baso # (Auto) Absolute Neuts (auto) pO2 VBG pH VBG pCO2 VBG HCO3 VBG Total CO2 VBG O2 Sat (Calc) VBG Base Excess VBG Potassium Glucose Lactate FiO2 Crit Value Called To Crit Value Called By Blood Gas Notified Time Sodium Potassium Chloride Carbon Dioxide Anion Gap BUN Creatinine Est GFR ( Amer) Est GFR (Non-Af Amer) POC Glucose (mg/dL) 75 65 Random Glucose Hemoglobin A1c Calcium Total Bilirubin AST ALT Alkaline Phosphatase Total Protein Albumin Globulin Albumin/Globulin Ratio Venous Blood Potassium Urine Color Urine Appearance Urine pH Ur Specific [place] Urine Protein Urine Glucose (UA) Urine Ketones Urine Blood Urine Nitrate Urine Bilirubin Urine Urobilinogen Ur Leukocyte Esterase Urine RBC Urine WBC Ur Epithelial Cells Urine Bacteria Influenza Typ A,B (EIA) Blood Type Antibody Screen Crossmatch BBK History Checked 12/24/18 12/24/18 12/24/18 00:30 05:30 05:30 WBC 3.6 L D RBC 3.69 Hgb 10.8 L Hct 33.6 L MCV 91.1 MCH 29.3 MCHC 32.1 RDW 16.1 H Plt Count 79 L MPV 10.1 Neut % (Auto) 64.7 Lymph % (Auto) 26.4 [place] % (Auto) 7.7 H Eos % (Auto) 0.6 L Baso % (Auto) 0.6 Lymph # (Auto) 1.0 L [place] # (Auto) 0.3 Eos # (Auto) 0.0 Baso # (Auto) 0.02 Absolute Neuts (auto) 2.35 pO2 VBG pH VBG pCO2 VBG HCO3 VBG Total CO2 VBG O2 Sat (Calc) VBG Base Excess VBG Potassium Glucose Lactate FiO2 Crit Value Called To Crit Value Called By Blood Gas Notified Time Sodium 136 Potassium 4.1 Chloride 113 H Carbon Dioxide 12 L Anion Gap 16 BUN 83 H Creatinine 11.0 H* Est GFR ( Amer) 6 Est GFR (Non-Af Amer) 5 POC Glucose (mg/dL) Random Glucose 77 Hemoglobin A1c Calcium 7.2 L Total Bilirubin 0.3 AST 24 ALT 7 Alkaline Phosphatase 51 Total Protein 6.6 Albumin 3.0 Globulin 3.6 Albumin/Globulin Ratio 0.8 L Venous Blood Potassium Urine Color Yellow Urine Appearance Cloudy Urine pH 6.5 Ur Specific [place] 1.025 Urine Protein >=300 H Urine Glucose (UA) 100 H Urine Ketones Negative Urine Blood Large H Urine Nitrate Negative Urine Bilirubin Negative Urine Urobilinogen 0.2 Ur Leukocyte Esterase Large H Urine RBC 2 - 5 H Urine WBC Tntc H Ur Epithelial Cells 0 - 2 Urine Bacteria Mod Influenza Typ A,B (EIA) Blood Type Antibody Screen Crossmatch BBK History Checked 12/24/18 12/24/18 12/24/18 05:30 07:24 15:40 WBC RBC Hgb Hct MCV MCH MCHC RDW Plt Count MPV Neut % (Auto) Lymph % (Auto) [place] % (Auto) Eos % (Auto) Baso % (Auto) Lymph # (Auto) [place] # (Auto) Eos # (Auto) Baso # (Auto) Absolute Neuts (auto) pO2 49 VBG pH 7.19 L* VBG pCO2 35.0 L VBG HCO3 13.4 L VBG Total CO2 14.5 L VBG O2 Sat (Calc) 86.8 H VBG Base Excess -13.8 L VBG Potassium 4.1 Glucose 79 Lactate 1.2 FiO2 21.0 Crit Value Called To Ana olson Crit Value Called By [facility] Blood Gas Notified Time 1550 Sodium 135.0 Potassium Chloride 110.0 H Carbon Dioxide Anion Gap BUN Creatinine Est GFR ( Amer) Est GFR (Non-Af Amer) POC Glucose (mg/dL) 65 Random Glucose Hemoglobin A1c 5.4 Calcium Total Bilirubin AST ALT Alkaline Phosphatase Total Protein Albumin Globulin Albumin/Globulin Ratio Venous Blood Potassium 4.1 Urine Color Urine Appearance Urine pH Ur Specific [place] Urine Protein Urine Glucose (UA) Urine Ketones Urine Blood Urine Nitrate Urine Bilirubin Urine Urobilinogen Ur Leukocyte Esterase Urine RBC Urine WBC Ur Epithelial Cells Urine Bacteria Influenza Typ A,B (EIA) Blood Type Antibody Screen Crossmatch BBK History Checked Radiology Impressions: Radiology Impressions Abdomen/Pelvis CT 12/23/18 14:25 IMPRESSION: 1. Potential posterior rectal/upper anal sinus tract or fistula. No definite colovesical fistula appreciated. 2. Lax anterior abdominal wall reiterated containing bowel loops without definitive hernia pattern. 3. Chronic perinephric/periureteral reaction reiterated, greater the right than left sides, with fullness of the bilateral caliceal systems in the kidneys and right pelvis. Sensitive urolithiasis identified in the right kidney and renal pelvis with 2.1 cm irregular calculus potentially functioning as a ball valve mechanism causing limited right hydronephrosis. Right pyelonephritis not excluded. 4. Grossly thickened urinary bladder wall status post Villalba catheter placement completely decompressing the bladder. Comparison is limited due to current catheter related decompression not previously shown. Moderate thickening was previously shown but the bladder was more distended. Clinically correlate for potential interval cystitis or neoplasm. [facility].m.. EKG/Cardiology Studies: Cardiology / EKG Studies 12/23/18 18:21 EKG [ELECTROCARDIOGRAM] Stat Comment: Reason For Exam: rapid heart rate 12/24/18 07:00 EKG [ELECTROCARDIOGRAM] Routine Comment: Reason For Exam: aflutter PRE OP:: N Does Patient Have a Pacemaker?: Yes Critical Care Progress Note - Nutrition Nutrition: Nutrition Category Date Time Status Renal Diet [DIET] Diets 12/23/18 Dinner Ordered Addendum Addendum: 12/24/18 16:58 MICU Attending Addendum Patient seen and examined with housestaff agree with resident note above with the following add/exceptions: 68 M with pmhx of coronary artery disease, anal fistula, CKD, neurogenic bladder, recurrent UTI's, right hydronephrosis w/ stones, PVD, diabetes, colonic fistula, hernia, and colostomy admitted with tachycardia, dehydration, possible rectal bleeding and acute on chronic renal failure Patient hydrated +4.7L overall 950 urine output overnight given 1 unit prbs by night team hb stable, no signs of active bleeding renal failure worse could be causing acidosis f/u renal recs and possible need for HD is persistently acidotics cardio consult for tachcyardia cont BB for now, cardizem drip if needed f/u culture PMD consulted uro for gi/gu fisutla concern rest of care as noted above Florecita Raphael MD MICU Attending
--- NOTE | 2018-12-24 08:42 | CT ---
Date of service: 12/23/2018 PROCEDURE: CT Abdomen and Pelvis with contrast HISTORY: active rectal bleed; concern for colovesiuclar fis COMPARISON: Abdomen pelvis CT without contrast 03/12/2018. TECHNIQUE: Helical CT of the abdomen and pelvis was performed following oral contrast administration only. Intravenous contrast was not administered as per referring physician request. Coronal and sagittal reformats were generated. Contrast dose: None Radiation dose: Total exam DLP = 1039.3 mGy-cm. This CT exam was performed using one or more of the following dose reduction techniques: Automated exposure control, adjustment of the mA and/or kV according to patient size, and/or use of iterative reconstruction technique. FINDINGS: LOWER THORAX: Cardiomegaly with pacemaker leads at the right heart reiterated as well as small hiatal hernia. LIVER: Unremarkable. No gross lesion or ductal dilatation. GALLBLADDER AND BILE DUCTS: Unremarkable. PANCREAS: Unremarkable. No gross lesion or ductal dilatation. SPLEEN: Small calcifications seen at the central spleen likely vascular in etiology. ADRENALS: Unremarkable. No mass. KIDNEYS AND URETERS: Bilateral perinephric streaky changes remain greater the right than left with associated prominent calcification identified at the mid to lower pole right kidney and right renal pelvis. There is fullness of the bilateral calyceal systems but only the right renal pelvis and not the left. Consider potential ball valve mechanism at the right renal pelvis related to 2.1 cm irregular calculus. Right pyelonephritis not completely excluded. VASCULATURE: Nonaneurysmal abdominal aortic calcific atherosclerotic changes are identified. BOWEL: Stomach is collapsed not well evaluated. Bowel is not appear obstructed. Marked laxity of the ventral anterior abdominal wall fascia is reiterated without overt herniation. Bowel is contained within this lax segment of fascia nevertheless, at the midline ventral abdomen wall. The entire colon is contrast with oral contrast material including the rectum. There is a small somewhat linear collection of oral contrast at the posterior perirectal/perianal soft tissue and possibly within the wall intrinsically, suspicious for sinus tract or fistula. No oral contrast identified within the urinary bladder with colovesical fistula not proven. Once oral contrast has exited the lower abdominal bowel, consider cystogram follow-up by post cystogram CT to evaluate for potential colovesical fistula as this has a much higher sensitivity for colovesical fistula than passive CT with oral contrast. APPENDIX: Normal appendix. PERITONEUM: Unremarkable. No free fluid. No free air. LYMPH NODES: No significant lymphadenopathy appreciable. BLADDER: Gross mural thickening is seen with Villalba catheter in situ potentially is a function of chronic catheterization. Comparison is difficult due to complete collapse of urinary bladder but prior CT demonstrated mural thickening as well. Cystitis or neoplasm is not excluded. REPRODUCTIVE: Unremarkable. BONES: No acute fracture. OTHER FINDINGS: None. IMPRESSION: 1. Potential posterior rectal/upper anal sinus tract or fistula. No definite colovesical fistula appreciated. 2. Lax anterior abdominal wall reiterated containing bowel loops without definitive hernia pattern. 3. Chronic perinephric/periureteral reaction reiterated, greater the right than left sides, with fullness of the bilateral caliceal systems in the kidneys and right pelvis. Sensitive urolithiasis identified in the right kidney and renal pelvis with 2.1 cm irregular calculus potentially functioning as a ball valve mechanism causing limited right hydronephrosis. Right pyelonephritis not excluded. 4. Grossly thickened urinary bladder wall status post Villalba catheter placement completely decompressing the bladder. Comparison is limited due to current catheter related decompression not previously shown. Moderate thickening was previously shown but the bladder was more distended. Clinically correlate for potential interval cystitis or neoplasm. Preliminary report from [facility], 08/04/2018, 10:34 p.m..
[2018-12-24] MEDS: Nystatin 100,000 Units/gm Topical Pow(15 gm) TOP SCH ×2 (09:27→17:39)
[2018-12-24] MEDS ORDERED: Digoxin 500 mcg/2ml (0.5 mg/2ml) Inj IV ONE (12:00)
--- NOTE | 2018-12-24 12:20 | PN ---
DATE: 12/24/2018 SUBJECTIVE: The patient is currently seen in CCU, bed 5. He remains on sodium bicarbonate drip. He has a Villalba catheter in place. He appears to have had a rectal bleed. Exact etiology is unknown. No evidence for upper GI bleeding. The patient has no argelia uremic symptoms. He does remain acidotic, he is not hyperkalemic. The patient and I had a lengthy discussion about the timing and initiation of dialysis. He was too have gone earlier this week for an AV fistula, but he had an upper respiratory tract infection and canceled the procedure. The patient has received 1 unit of packed red blood cells, his hemoglobin this morning is 10.8. The patient is being evaluated by GI. He was started on IV antibiotic therapy for likely urinary tract infection. The patient has a right staghorn calculus which is likely the nidus of infection. MEDICATIONS: Medication list reviewed. The patient is currently on IV fluid with sodium bicarbonate, nystatin, meropenem, Lopressor, sliding scale insulin. Binders need to be restarted. OBJECTIVE INTAKE/OUTPUT: Intake is 5655, output is 950. His weight is 189 pounds. VITAL SIGNS: Blood pressure 108/42, pulse rate is 140 and irregular. Temperature 98.2, respiratory rate is 24. Pulse ox is 98%. HEENT: Shows him to be normocephalic, atraumatic. Conjunctivae are pink. Sclerae are nonicteric. NECK: Supple. No neck vein distention. CHEST: Clear to auscultation and percussion. No rales, rhonchi or wheezing. CARDIOVASCULAR: Shows an irregular S1 and S2 with a soft systolic murmur left lower sternal border. No S3, no S4, no rub. The patient has a permanent pacemaker. ABDOMEN: Soft. Bowel sounds normal. No tenderness. He has a large left lower quadrant nonreducible abdominal wall hernia. EXTREMITIES: Show no lower extremity cyanosis, clubbing or edema. He has no asterixis. LABORATORY DATA AND IMAGING: CBC; white blood cell count today 3.6, hemoglobin had dropped from 12.3-9.8, post 1 unit of blood is 10.8. Platelet count is low at 79,000. Coags; PT was 14.4 on admission with a PTT of 34.9. Blood gas on admission showed a pH of 7.06 with a pO2 of 29 and a pCO2 of 31. Chemistries today show a bicarbonate level of 12 which remains low. Sodium is 136, potassium 4.1, BUN 83 with a creatinine of 11. Calcium is 7.2 with a phosphorus level of 7.1. Albumin level is 3.0. Liver enzymes are normal. Urine showed many white blood cells, 2-5 red blood cells. Influenza serologies are negative. Microbiology, all cultures including urine cultures are pending. Abdominopelvic CT scan done on admission shows possible colorectal upper with possible anal sinus tract fistula. Chronic perinephric and periureteral reaction. Right kidney staghorn calculus. Possible right-sided hydronephrosis. Thickening of the bladder wall. ASSESSMENT 1. Acute renal failure superimposed on chronic kidney disease, stage V. The patient is rapidly approaching the initiation of dialysis. He has no argelia uremic symptoms today. He is not hyperkalemic. His gastrointestinal bleeding appears to be limited. No evidence for neurological deficits. No asterixis. Mental status appears to be normal. The patient's baseline creatinine most recently had been in the mid 6 range. The patient was scheduled for an AV fistula as an outpatient, but because of an upper respiratory tract infection, he did not go. The patient is interested in doing in-center dialysis once he starts dialysis. 2. Severe metabolic acidosis. Continue sodium bicarbonate drip. If we are unable to neutralize his acidosis, it is quite possible that the patient will need to initiate dialysis during this hospitalization. We will also consider initiating dialysis if his creatinine does not drop closer to the 6-7 baseline. 3. Hypotension with a past history of hypertension. The patient is only on beta-gino therapy. 4. Tachycardia with atrial fibrillation. The patient had been on chronic anticoagulation in the outpatient setting. He does have a permanent pacemaker, he does have mild valvular heart disease and a history of arteriosclerotic heart disease. 5. Noninsulin-dependent diabetes mellitus. The patient remains on sliding scale insulin. He is off all oral medications for diabetes. 6. Secondary hyperparathyroidism. The patient's phosphorus level was elevated. The patient will be started on binder therapy. 7. History of a large right staghorn renal calculus with stone fragments. likely continuously seeding the urine with infection. The patient has known right-sided hydronephrosis. There was some consideration for removing the right kidney, but this was never done. 8. History of peripheral vascular disease, status post multiple lower extremity foot surgeries. 9. History of a paraspinal abscess with history of diverticulosis, history of colectomy with colostomy, history of reversal of colostomy, all appeared to be stable. He does have a large nonreducible left lower quadrant abdominal wall hernia, which is being followed medically, no plans for surgery. 10. Severe anemia. Keep hemoglobin in the 9-10 range. Currently, it is 10.8 post receiving 1 unit of blood. PLAN 1. Again discussed with the patient the possibility of initiating dialysis, should his numbers not improve. 2. Continue IV fluid hydration with sodium bicarbonate. 3. Continue to follow urine cultures and treat the patient appropriately for his likely urinary tract infection. 4. Should the patient require dialysis, he will require placement of a permanent catheter. He was scheduled to see Dr. Morales earlier this week for an AV fistula, but this never took place. 5. Discussed with ICU staff. Greater than 35 minutes spent in the care of this patient. Bryan Vail MD [facility]LLER[facility]
--- NOTE | 2018-12-24 12:36 | CON ---
DATE OF CONSULTATION: 12/24/2018 The patient is in the ICU bed, #5. CHIEF COMPLAINT: Rectal bleeding and dysuria and frequency. HISTORY OF PRESENT ILLNESS: This is a 68-year-old male with coronary artery disease, chronic kidney disease. The patient is being prepared for possibly going on dialysis. The patient with a history of neurogenic bladder, recurrent urinary tract infection, right hydronephrosis with stones, peripheral vascular disease, diabetes, and colonic fistula, who is admitted with rectal bleeding and found to have positive urinalysis. The patient is also complaining of urinary symptoms and dysuria and frequency. REVIEW OF SYSTEMS: Reveals a 12-point review systems performed. PAST MEDICAL HISTORY: Significant for coronary artery disease, kidney disease, neurogenic bladder, recurrent urinary tract infection, right hydronephrosis with stones, peripheral vascular disease, diabetes mellitus, colonic fistulas, congestive heart failure, and diverticulitis. PAST SURGICAL HISTORY: Significant for colostomy, right foot surgery, left foot surgery, tonsillectomy, and left knee surgery. ALLERGIES: THE PATIENT IS ALLERGIC TO CEFTRIAXONE. MEDICATIONS: Medications at home are noted. PHYSICAL EXAMINATION: GENERAL: The patient is in bed, answering questions, awake and alert and in the ICU. VITAL SIGNS: Temperature of 99, T-max was 100.6, heart rate of 108, respiratory rate of 24, blood pressure is 101/58. HEENT: Examination of HEENT is unremarkable. NECK: Supple. LUNGS: Have decreased breath sounds. HEART: Normal S1, S2. ABDOMEN: Soft. LABORATORY DATA: Laboratory examination reveals a white count of 3.6 today and yesterday it was 5.7, hemoglobin of 12, platelets of 116. Coagulation is noted. Chemistries are reviewed. Urinalysis is noted. Serology is noted. Microbiology is noted, pending. The patient had a CT scan of the abdomen and pelvis, which is reviewed. ASSESSMENT AND PLAN: A 68-year-old male with extensive past medical history, recurrent urinary tract infections, right hydronephrosis in the past with stones, peripheral vascular disease, diabetes, colonic fistulas, renal disease, coronary artery disease, and who was admitted with severe sepsis with the urine as the source, acute kidney injury on top of chronic kidney injury with rectal bleeding, and the patient's creatinine has changed from 6.5 to 11.3. We will empirically start the patient on meropenem allergies, and check on the blood cultures, urine cultures, and case discussed with Dr. Frost. Joe Bergman MD
--- NOTE | 2018-12-24 13:12 | PN ---
DATE: 12/24/2018 SUBJECTIVE: A 68-year-old male on the coronary care unit. Nursing staff relates that there were no specific problems during the night, although his care team states that he still continues to be in a rapid tachycardia. PHYSICAL EXAMINATION VITAL SIGNS: His temperature is 98.2. His pulse is 119 and goes up as high as 147. His blood pressure is 108/42. His respiratory rate is 24, oxygen sat is reported 98% on room air. HEART: Rapid S1 and S2 rhythm. LUNGS: Show some scattered wheezing. ABDOMEN: Soft with positive bowel sounds. There is an abdominal hernia present. EXTREMITIES: Show no evidence of edema, evidence of prior surgery for toe amputations. NEUROLOGIC: He is alert and oriented x3. LABORATORY DATA: Shows a WBC of 3.6, RBC 3.69, hemoglobin 10.8, hematocrit 33.6, platelet count is 79,000. His chemistry shows a sodium of 136, potassium is 4.1, chloride 113, CO2 of 12, BUN is 83, the creatinine is 11, calcium is 7.2. His albumin is 3. His LFTs are normal. Random blood sugar is 65. Urinalysis is reported as showing large leukocyte esterase with too numerous to count WBCs and moderate urine bacteria. MEDICATIONS: Currently, the patient is on IV fluids D5. He is on sliding insulin scale. He is on Lopressor 50 mg every 8 hours. He is on PhosLo 667 mg with meals. He is on a sodium bicarb drip and sodium bicarb p.o. He has been placed on meropenem by Infectious Disease, and he is on nystatin powder for fungal rash. ASSESSMENT AND PLAN: The patient has: 1. Severe sepsis, probably urinary etiology. Cultures are pending. 2. Sinus tachycardia. 3. Rectal bleeding. 4. Possible cystitis with bladder wall thickening. 5. 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 6. Right hydronephrosis with stones. 7. Thrombocytopenia. I have reviewed the case with the meter and service line inspector and Care Team in the unit as well as with Infectious Disease. We will request Urology at the patient's request. He is requesting Dr. Villavicencio and will get Cardiology involved as well. I have also discussed the case with Surgery, Dr. Moncada. Follow up the patient's labs and continue level of supportive care. I have discussed all clinical findings to date with the patient. He is also going to be followed by Nephrology. Ana Frost MD
[2018-12-24 15:54] LABS: VENOUS BLOOD GAS BASE EXCESS -13.8 mmol/L (0.0-2.0); VENOUS BLOOD GAS PO2 49 mm/Hg (30-55); VENOUS BLOOD PH 7.19 (7.32-7.43)
--- NOTE | 2018-12-24 17:12 | CARD ---
APPROVED REPORT Date of service: 12/24/2018 EKG Measurement Heart [id number] <Conclusion> Atrial flutter with rapid ventricular response with premature ventricular or aberrantly conducted complexes Nonspecific ST-T changes Abnormal ECG
[2018-12-24] MEDS: Digoxin 500 mcg/2ml (0.5 mg/2ml) Inj IV SCH (17:38)
[2018-12-24] MEDS ORDERED: Arformoterol 15 mcg/2 ml Inh Sol IH SCH (20:00)
[2018-12-24] MEDS: Arformoterol 15 mcg/2 ml Inh Sol IH SCH (20:20)
[2018-12-24] MEDS: Budesonide 0.5 mg/2 ml Inhal Susp UD IH SCH (20:20)
--- NOTE | 2018-12-24 23:26 | CON ---
DATE OF CONSULTATION: 12/24/2018 REQUESTING PHYSICIAN: Ana Frost MD REASON FOR CONSULTATION: Tachycardia, gastrointestinal bleeding. 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 He is seen in the CCU and is tachycardic at 150 beats per minute. He denies any chest pain or dyspnea. He underwent a recent stress test in preparation for placement of an AV fistula. This showed a small fixed apical and distal defect felt secondary to diaphragmatic attenuation. His ejection fraction was 52%. No clear ischemia was seen. PAST HISTORY: Fairly uncomplicated. He has known peripheral arterial disease and has undergone a prior toe amputation. He has had prior DVTs, osteomyelitis, history of diabetes, hypertension, nephrolithiasis, chronic anemia, prior colon resection for diverticulosis with colostomy and eventual reversal as well as colovesical fistula. He has had admissions for urosepsis and has a chronic neurogenic bladder. FAMILY HISTORY: Unremarkable for premature heart disease. SOCIAL HISTORY: He does not smoke or drink. MEDICATIONS AT HOME: Pepcid, Lopressor, Renagel, sodium bicarbonate tablets, Norvasc, and iron supplements. ALLERGIES: He has had a reaction to ceftriaxone in the past. REVIEW OF SYSTEMS: A 10-point review of systems is notable mainly for the problems as mentioned above. PHYSICAL EXAMINATION: GENERAL: He is a middle-aged man who appears comfortable at the present time. VITAL SIGNS: Blood pressure is 120/64 with a pulse of 150, in atrial flutter. Respirations are 16. He is afebrile. HEENT: Normocephalic, atraumatic. NECK: Supple. No JVD noted. CHEST: Bilateral scattered rhonchi heard. HEART: PMI displaced laterally. A holosystolic murmur is noted across the precordium. ABDOMEN: Soft and nontender with normoactive bowel sounds. EXTREMITIES: No edema. Diminished distal pulses. SKIN: Warm and dry. PSYCHIATRIC: Normal mood and affect. NEUROLOGIC: Alert and oriented x3. No gross motor or sensory deficits noted. DIAGNOSTIC DATA: Potassium 4.1, BUN and creatinine 83 and 11.0. White count 3.6, hemoglobin and hematocrit 10.8 and 33.6 with a platelet count of 79,000. He was transfused 1 unit of packed cells. Venous blood gas initially revealed a pH of 7.10 with a pO2 of 24 and pCO2 of 38, repeat was 7.19 with a pO2 of 49 and pCO2 of 35. Electrocardiogram reveals atrial flutter with 2:1 conduction. Chest x-ray reveals normal cardiac silhouette with clear lung stanley. A single VVI pacing system is noted. IMPRESSION: 1. Apparent lower GI bleed, source to be determined. 2. Atrial flow flutter with 2:1 conduction. 3. Coronary artery disease status post remote PCI with recent stress test showing no evidence of ischemia. 4. Mitral regurgitation. 5. Rest of problems as noted. RECOMMENDATIONS: Digoxin will be added and he will be loaded with 1 mg over the next 24 hours in an attempt to control his rate. His metoprolol will be continued for now as well. The dose will be increased as needed for rate control. Attempts at conversion to sinus rhythm will not be planned at this time given his inability to be anticoagulated. Obviously, anticoagulation needs to be withheld given his gastrointestinal bleeding. I will be happy to follow along and make further recommendations as appropriate. Jose Willams MD
--- NOTE | 2018-12-24 23:54 | PCM.URO ---
Urology Progress Note - Subjective Other: very complicated history. will review chart and imaging further. and will then outline a plan and this wll depend on others as well - Objective Lab Results Last 24 Hours: Laboratory Results - last 24 hr 12/23/18 12/23/18 12/24/18 10:40 16:57 00:30 WBC RBC Hgb Hct MCV MCH MCHC RDW Plt Count MPV Neut % (Auto) Lymph % (Auto) [place] % (Auto) Eos % (Auto) Baso % (Auto) Lymph # (Auto) [place] # (Auto) Eos # (Auto) Baso # (Auto) Absolute Neuts (auto) pO2 VBG pH VBG pCO2 VBG HCO3 VBG Total CO2 VBG O2 Sat (Calc) VBG Base Excess VBG Potassium Glucose Lactate FiO2 Crit Value Called To Crit Value Called By Blood Gas Notified Time Sodium Potassium Chloride Carbon Dioxide Anion Gap BUN Creatinine Est GFR ( Amer) Est GFR (Non-Af Amer) POC Glucose (mg/dL) 137 H Random Glucose Hemoglobin A1c Calcium Total Bilirubin AST ALT Alkaline Phosphatase Total Protein Albumin Globulin Albumin/Globulin Ratio Venous Blood Potassium Urine Color Yellow Urine Appearance Cloudy Urine pH 6.5 Ur Specific Eros 1.025 Urine Protein >=300 H Urine Glucose (UA) 100 H Urine Ketones Negative Urine Blood Large H Urine Nitrate Negative Urine Bilirubin Negative Urine Urobilinogen 0.2 Ur Leukocyte Esterase Large H Urine RBC 2 - 5 H Urine WBC Tntc H Ur Epithelial Cells 0 - 2 Urine Bacteria Mod Blood Type A POSITIVE Antibody Screen Negative Crossmatch See Detail BBK History Checked Patient has bt 12/24/18 12/24/18 12/24/18 05:30 05:30 05:30 WBC 3.6 L D RBC 3.69 Hgb 10.8 L Hct 33.6 L MCV 91.1 MCH 29.3 MCHC 32.1 RDW 16.1 H Plt Count 79 L MPV 10.1 Neut % (Auto) 64.7 Lymph % (Auto) 26.4 [place] % (Auto) 7.7 H Eos % (Auto) 0.6 L Baso % (Auto) 0.6 Lymph # (Auto) 1.0 L [place] # (Auto) 0.3 Eos # (Auto) 0.0 Baso # (Auto) 0.02 Absolute Neuts (auto) 2.35 pO2 VBG pH VBG pCO2 VBG HCO3 VBG Total CO2 VBG O2 Sat (Calc) VBG Base Excess VBG Potassium Glucose Lactate FiO2 Crit Value Called To Crit Value Called By Blood Gas Notified Time Sodium 136 Potassium 4.1 Chloride 113 H Carbon Dioxide 12 L Anion Gap 16 BUN 83 H Creatinine 11.0 H* Est GFR ( Amer) 6 Est GFR (Non-Af Amer) 5 POC Glucose (mg/dL) Random Glucose 77 Hemoglobin A1c 5.4 Calcium 7.2 L Total Bilirubin 0.3 AST 24 ALT 7 Alkaline Phosphatase 51 Total Protein 6.6 Albumin 3.0 Globulin 3.6 Albumin/Globulin Ratio 0.8 L Venous Blood Potassium Urine Color Urine Appearance Urine pH Ur Specific Eros Urine Protein Urine Glucose (UA) Urine Ketones Urine Blood Urine Nitrate Urine Bilirubin Urine Urobilinogen Ur Leukocyte Esterase Urine RBC Urine WBC Ur Epithelial Cells Urine Bacteria Blood Type Antibody Screen Crossmatch BBK History Checked 12/24/18 12/24/18 07:24 15:40 WBC RBC Hgb Hct MCV MCH MCHC RDW Plt Count MPV Neut % (Auto) Lymph % (Auto) [place] % (Auto) Eos % (Auto) Baso % (Auto) Lymph # (Auto) [place] # (Auto) Eos # (Auto) Baso # (Auto) Absolute Neuts (auto) pO2 49 VBG pH 7.19 L* VBG pCO2 35.0 L VBG HCO3 13.4 L VBG Total CO2 14.5 L VBG O2 Sat (Calc) 86.8 H VBG Base Excess -13.8 L VBG Potassium 4.1 Glucose 79 Lactate 1.2 FiO2 21.0 Crit Value Called To Ana olson Crit Value Called By Atc Blood Gas Notified Time 1550 Sodium 135.0 Potassium Chloride 110.0 H Carbon Dioxide Anion Gap BUN Creatinine Est GFR ( Amer) Est GFR (Non-Af Amer) POC Glucose (mg/dL) 65 Random Glucose Hemoglobin A1c Calcium Total Bilirubin AST ALT Alkaline Phosphatase Total Protein Albumin Globulin Albumin/Globulin Ratio Venous Blood Potassium 4.1 Urine Color Urine Appearance Urine pH Ur Specific Eros Urine Protein Urine Glucose (UA) Urine Ketones Urine Blood Urine Nitrate Urine Bilirubin Urine Urobilinogen Ur Leukocyte Esterase Urine RBC Urine WBC Ur Epithelial Cells Urine Bacteria Blood Type Antibody Screen Crossmatch BBK History Checked Intake & Output: Intake & Output 12/24/18 12/24/18 12/25/18 06:59 18:59 06:59 Intake Total 5655 2110 Output Total 950 550 Balance 4705 1560 Weight 189 lb Intake: IV 4210 1060 Right Upper arm 4210 1060 Oral 1020 1050 Blood Product 325 Other 100 Output: Urine 650 350 2-way Urethral 650 350 Stool 300 200 Other: # Bowel Movements 2 Vital Signs: Vital Signs - 24 hr 12/24/18 12/24/18 12/24/18 00:00 00:05 00:10 Temperature 99.3 F 99.3 F 99.1 F Pulse Rate 141 H 141 H 140 H Respiratory 39 H 24 Rate Blood Pressure 112/37 L O2 Sat by Pulse 98 99 98 Oximetry 12/24/18 12/24/18 12/24/18 00:14 00:22 01:00 Temperature 99.1 F 99.0 F 98.6 F Pulse Rate 141 H 140 H 138 H Respiratory 24 47 H Rate Blood Pressure O2 Sat by Pulse 97 96 95 Oximetry 12/24/18 12/24/18 12/24/18 01:05 01:23 02:00 Temperature 98.6 F 98.2 F Pulse Rate 137 H 137 H 137 H Respiratory 21 21 26 H Rate Blood Pressure 109/71 92/49 L O2 Sat by Pulse 95 95 95 Oximetry 12/24/18 12/24/18 12/24/18 02:04 03:00 03:04 Temperature 98.2 F 98.1 F 98.1 F Pulse Rate 137 H 109 H 105 H Respiratory 27 H 24 22 Rate Blood Pressure 107/58 L 119/52 L O2 Sat by Pulse 95 96 97 Oximetry 12/24/18 12/24/18 12/24/18 04:00 04:04 04:09 Temperature 98.1 F 98.1 F 98.1 F Pulse Rate 138 H 137 H 129 H Respiratory 25 H 21 Rate Blood Pressure 131/77 O2 Sat by Pulse 96 98 98 Oximetry 12/24/18 12/24/18 12/24/18 05:00 05:04 06:00 Temperature 98.2 F 98.2 F 98.2 F Pulse Rate 138 H 138 H 139 H Respiratory 20 23 22 Rate Blood Pressure 116/80 O2 Sat by Pulse 95 97 91 L Oximetry 12/24/18 12/24/18 12/24/18 06:06 06:24 06:35 Temperature 98.2 F 98.2 F Pulse Rate 139 H 137 H 141 H Respiratory 22 Rate Blood Pressure 97/56 L 97/57 L O2 Sat by Pulse 92 L 95 Oximetry 12/24/18 12/24/18 12/24/18 06:36 06:37 06:38 Temperature 98.2 F 98.2 F 98.2 F Pulse Rate 142 H 141 H 125 H Respiratory 25 H 24 25 H Rate Blood Pressure 94/61 L 130/73 105/50 L O2 Sat by Pulse 93 L 93 L 98 Oximetry 12/24/18 12/24/18 12/24/18 06:39 06:40 07:00 Temperature 98.2 F 98.2 F 98.4 F Pulse Rate 108 H 119 H 141 H Respiratory 25 H 24 Rate Blood Pressure 100/39 L 108/42 L O2 Sat by Pulse 98 98 Oximetry 12/24/18 12/24/18 12/24/18 07:04 07:11 07:21 Temperature 97.9 F 97.9 F Pulse Rate 112 H 140 H 141 H Respiratory 24 19 Rate Blood Pressure 110/40 L 96/60 L O2 Sat by Pulse 96 96 97 Oximetry 12/24/18 12/24/18 12/24/18 08:00 09:08 09:29 Temperature Pulse Rate 143 H 147 H 147 H Respiratory 25 H 21 Rate Blood Pressure 128/90 128/90 O2 Sat by Pulse 99 96 Oximetry 12/24/18 12/24/18 12/24/18 10:00 10:01 10:03 Temperature Pulse Rate 147 H 147 H 147 H Respiratory 21 24 26 H Rate Blood Pressure 117/88 129/75 104/48 L O2 Sat by Pulse 96 97 98 Oximetry 12/24/18 12/24/18 12/24/18 10:04 10:08 11:08 Temperature Pulse Rate 147 H 147 H 145 H Respiratory 21 16 28 H Rate Blood Pressure 137/61 119/64 114/67 O2 Sat by Pulse 96 98 94 L Oximetry 12/24/18 12/24/18 12/24/18 11:36 12:00 12:08 Temperature 97.3 F L Pulse Rate 116 H 145 H 144 H Respiratory 30 H 24 Rate Blood Pressure 127/83 O2 Sat by Pulse 94 L 95 Oximetry 12/24/18 12/24/18 12/24/18 13:08 13:33 13:34 Temperature Pulse Rate 99 H 98 H 100 H Respiratory 30 H 25 H Rate Blood Pressure 144/56 L 144/56 L 133/58 L O2 Sat by Pulse 92 L 97 Oximetry 12/24/18 12/24/18 12/24/18 14:00 16:00 16:10 Temperature 98.5 F Pulse Rate 112 H 97 H 107 H Respiratory 24 25 H Rate Blood Pressure O2 Sat by Pulse 96 98 Oximetry 12/24/18 12/24/18 12/24/18 16:39 16:40 16:41 Temperature Pulse Rate 107 H 103 H 108 H Respiratory 29 H 25 H 29 H Rate Blood Pressure 138/95 H 130/53 L 119/102 H O2 Sat by Pulse 76 L 75 L 82 L Oximetry 12/24/18 12/24/18 12/24/18 16:43 17:00 18:00 Temperature Pulse Rate 107 H 116 H 119 H Respiratory 20 40 H 23 Rate Blood Pressure 144/88 O2 Sat by Pulse 88 L 96 94 L Oximetry 12/24/18 12/24/18 20:20 22:06 Temperature Pulse Rate 95 H 100 H Respiratory Rate Blood Pressure 142/72 O2 Sat by Pulse Oximetry
[2018-12-25] MEDS: Digoxin 500 mcg/2ml (0.5 mg/2ml) Inj IV SCH (00:21)
[2018-12-25 00:45] VITALS: PULSE 90
--- NOTE | 2018-12-25 03:44 | PN ---
DATE: 12/24/2018 SUBJECTIVE: The patient is comfortable. The patient did have bowel movements. No bleeding per rectum. PHYSICAL EXAMINATION: VITAL SIGNS: Pulse is 100, blood pressure is 142/72, respirations 23. HEENT: Atraumatic. Anicteric. NECK: Supple. HEART: S1 and S2 heard. LUNGS: Bilateral air entry present. ABDOMEN: Soft. Mild tenderness on deep palpation of the lower abdomen. EXTREMITIES: No edema. No cyanosis. No clubbing. NEUROLOGIC: Alert, oriented. Moves all extremities. LABORATORY DATA: Hemoglobin 10.8, hematocrit 33.6, WBC 3.6, platelets 379. Chemistry creatinine is 11, BUN 83. The patient did have a CT scan of the abdomen and pelvis done, which was reviewed. Fissure, perinephric stranding with fullness in all the calyces. The patient had a CAT scan done, which showed some thickened bladder wall. IMPRESSION: 1. This is a 68-year-old patient with multiple comorbidities, chronic kidney disease, history of perianal ulcerations, rectal ulceration, status post colostomy and reversal. would recommend supplements. 2. Continue the iron and closely followup of the hemoglobin and hematocrit. 3. We will continue the antibiotics as per Infectious Disease. 4. CT scan of the abdomen and pelvis to further evaluate. Thank you very much for allowing me to participate in the care of the patient. Clifton Veliz MD
[2018-12-25 06:04] LABS: BASO # 0.02 K/mm3 (0.0-2.0); BASO % 0.4 % (0.0-3.0); EOS % 0.4 % (1.5-5.0); HEMOGLOBIN 10.3 g/dL (14.0-18.0); LYMPH % 20.6 % (22.0-35.0); MEAN CELL VOLUME 90.3 fl (80.0-105.0); MEAN CORPUSCULAR HEMOGLOBIN 28.7 pg (25.0-35.0); MEAN CORPUSCULAR HGB CONC 31.8 g/dl (31.0-37.0); MEAN PLATELET VOLUME 9.7 fl (7.0-11.0); MONO # 0.4 (0.1-0.6); MONO % 8.5 % (1.0-6.0); RBC 3.59 10^6/uL (3.5-6.1); RED CELL DISTRIBUTION WIDTH 15.8 % (11.5-14.5); WHITE BLOOD COUNT 4.7 10^3/uL (4.5-11.0)
[2018-12-25] MEDS: Arformoterol 15 mcg/2 ml Inh Sol IH SCH ×2 (07:11→20:12)
[2018-12-25] MEDS: Budesonide 0.5 mg/2 ml Inhal Susp UD IH SCH ×2 (07:11→20:12)
[2018-12-25 07:16] LABS: ALB/GLOB RATIO 0.9 (1.1-1.8); ALBUMIN 3.2 g/dL (3.0-4.8); CALCIUM 6.7 mg/dL (8.4-10.5)
--- NOTE | 2018-12-25 07:55 | PCM.URO ---
Urology Progress Note - Objective Lab Studies: Reviewed (plans to be disucussed) Lab Results Last 24 Hours: Laboratory Results - last 24 hr 12/24/18 12/24/18 12/24/18 05:30 11:21 15:40 WBC RBC Hgb Hct MCV MCH MCHC RDW Plt Count MPV Neut % (Auto) Lymph % (Auto) [place] % (Auto) Eos % (Auto) Baso % (Auto) Lymph # (Auto) [place] # (Auto) Eos # (Auto) Baso # (Auto) Absolute Neuts (auto) pO2 49 VBG pH 7.19 L* VBG pCO2 35.0 L VBG HCO3 13.4 L VBG Total CO2 14.5 L VBG O2 Sat (Calc) 86.8 H VBG Base Excess -13.8 L VBG Potassium 4.1 Sodium 135.0 Chloride 110.0 H Glucose 79 Lactate 1.2 FiO2 21.0 Crit Value Called To Ana olson Crit Value Called By Atc Blood Gas Notified Time 1550 Potassium Carbon Dioxide Anion Gap BUN Creatinine Est GFR ( Amer) Est GFR (Non-Af Amer) POC Glucose (mg/dL) 90 Random Glucose Hemoglobin A1c 5.4 Calcium Phosphorus Magnesium Total Bilirubin AST ALT Alkaline Phosphatase Total Protein Albumin Globulin Albumin/Globulin Ratio Venous Blood Potassium 4.1 12/24/18 12/24/18 12/25/18 15:57 21:55 05:10 WBC 4.7 D RBC 3.59 Hgb 10.3 L Hct 32.4 L MCV 90.3 MCH 28.7 MCHC 31.8 RDW 15.8 H Plt Count 80 L MPV 9.7 Neut % (Auto) 70.1 H Lymph % (Auto) 20.6 L [place] % (Auto) 8.5 H Eos % (Auto) 0.4 L Baso % (Auto) 0.4 Lymph # (Auto) 1.0 L [place] # (Auto) 0.4 Eos # (Auto) 0.0 Baso # (Auto) 0.02 Absolute Neuts (auto) 3.31 pO2 VBG pH VBG pCO2 VBG HCO3 VBG Total CO2 VBG O2 Sat (Calc) VBG Base Excess VBG Potassium Sodium Chloride Glucose Lactate FiO2 Crit Value Called To Crit Value Called By Blood Gas Notified Time Potassium Carbon Dioxide Anion Gap BUN Creatinine Est GFR ( Amer) Est GFR (Non-Af Amer) POC Glucose (mg/dL) 81 219 H Random Glucose Hemoglobin A1c Calcium Phosphorus Magnesium Total Bilirubin AST ALT Alkaline Phosphatase Total Protein Albumin Globulin Albumin/Globulin Ratio Venous Blood Potassium 12/25/18 05:10 WBC RBC Hgb Hct MCV MCH MCHC RDW Plt Count MPV Neut % (Auto) Lymph % (Auto) [place] % (Auto) Eos % (Auto) Baso % (Auto) Lymph # (Auto) [place] # (Auto) Eos # (Auto) Baso # (Auto) Absolute Neuts (auto) pO2 VBG pH VBG pCO2 VBG HCO3 VBG Total CO2 VBG O2 Sat (Calc) VBG Base Excess VBG Potassium Sodium 139 Chloride 111 H Glucose Lactate FiO2 Crit Value Called To Crit Value Called By Blood Gas Notified Time Potassium 4.0 Carbon Dioxide 15 L Anion Gap 17 BUN 89 H Creatinine 11.5 H* Est GFR ( Amer) 5 Est GFR (Non-Af Amer) 4 POC Glucose (mg/dL) Random Glucose 94 Hemoglobin A1c Calcium 6.7 L* Phosphorus 5.7 H Magnesium 1.6 L Total Bilirubin 0.3 AST 24 ALT 11 Alkaline Phosphatase 62 Total Protein 6.9 Albumin 3.2 Globulin 3.7 Albumin/Globulin Ratio 0.9 L Venous Blood Potassium Intake & Output: Intake & Output 12/24/18 12/25/18 12/25/18 18:59 06:59 18:59 Intake Total 2110 900 Output Total 550 450 Balance 1560 450 Weight 194 lb Intake: IV 1060 900 Right Forearm 900 Right Upper arm 1060 Oral 1050 Output: Urine 350 450 2-way Urethral 350 450 Stool 200 0 Vital Signs: Vital Signs - 24 hr 12/24/18 12/24/18 12/24/18 08:00 09:08 09:29 Temperature Pulse Rate 143 H 147 H 147 H Respiratory 25 H 21 Rate Blood Pressure 128/90 128/90 O2 Sat by Pulse 99 96 Oximetry 12/24/18 12/24/18 12/24/18 10:00 10:01 10:03 Temperature Pulse Rate 147 H 147 H 147 H Respiratory 21 24 26 H Rate Blood Pressure 117/88 129/75 104/48 L O2 Sat by Pulse 96 97 98 Oximetry 12/24/18 12/24/18 12/24/18 10:04 10:08 11:08 Temperature Pulse Rate 147 H 147 H 145 H Respiratory 21 16 28 H Rate Blood Pressure 137/61 119/64 114/67 O2 Sat by Pulse 96 98 94 L Oximetry 12/24/18 12/24/18 12/24/18 11:36 12:00 12:08 Temperature 97.3 F L Pulse Rate 116 H 145 H 144 H Respiratory 30 H 24 Rate Blood Pressure 127/83 O2 Sat by Pulse 94 L 95 Oximetry 12/24/18 12/24/18 12/24/18 13:08 13:33 13:34 Temperature Pulse Rate 99 H 98 H 100 H Respiratory 30 H 25 H Rate Blood Pressure 144/56 L 144/56 L 133/58 L O2 Sat by Pulse 92 L 97 Oximetry 12/24/18 12/24/18 12/24/18 14:00 16:00 16:10 Temperature 98.5 F Pulse Rate 112 H 97 H 107 H Respiratory 24 25 H Rate Blood Pressure O2 Sat by Pulse 96 98 Oximetry 12/24/18 12/24/18 12/24/18 16:39 16:40 16:41 Temperature Pulse Rate 107 H 103 H 108 H Respiratory 29 H 25 H 29 H Rate Blood Pressure 138/95 H 130/53 L 119/102 H O2 Sat by Pulse 76 L 75 L 82 L Oximetry 12/24/18 12/24/18 12/24/18 16:43 17:00 18:00 Temperature Pulse Rate 107 H 116 H 119 H Respiratory 20 40 H 23 Rate Blood Pressure 144/88 O2 Sat by Pulse 88 L 96 94 L Oximetry 12/24/18 12/24/18 12/24/18 20:00 20:20 22:06 Temperature Pulse Rate 101 H 95 H 100 H Respiratory Rate Blood Pressure 142/72 O2 Sat by Pulse Oximetry 12/25/18 12/25/18 12/25/18 00:00 04:00 06:31 Temperature Pulse Rate 99 H 88 91 H Respiratory Rate Blood Pressure 132/80 O2 Sat by Pulse Oximetry
--- NOTE | 2018-12-25 08:01 | CP.CCUPN ---
<Claudia Maurer - Last Filed: 12/25/18 11:06> CCU Subjective - Physician Review Subjective (Free Text): 12/24/18 08:51 Claudia Maurer, PGY1 ICU Progress Note Pt was seen and examined this AM at bedside. Pt had an episode of confusion overnight and had pulled out his IV lined which per night team required restraints. At this time the pt is no longer confused or agitated. Pt denies fevers, chills, headache, lightheadedness, chest pain, LE swelling, SOB, abd pain, n/v, c/d, dysuria or hematuria. Pt had BMs overnight which were non- bloody, but were liquid. Pt has no other acute complaints at this time. CCU Objective - Vital Signs / Intake & Output Vital Signs (Last 4 hours): Vital Signs Pulse BP 12/25/18 06:31 91 H 132/80 12/25/18 04:00 88 Intake and Output (Last 8hrs): Intake & Output 12/24/18 12/25/18 12/25/18 22:59 06:59 14:59 Intake Total 2110 900 Output Total 550 450 Balance 1560 450 Weight 194 lb Intake: IV 1060 900 Right Forearm 900 Right Upper arm 1060 Oral 1050 Output: Urine 350 450 2-way Urethral 350 450 Stool 200 0 - Physical Exam Head: Positive for: Atraumatic, Normocephalic Pupils: Positive for: PERRL Extroacular Muscles: Positive for: EOMI Conjunctiva: Positive for: Normal Respiratory/Chest: Positive for: Wheezes (end expiratory wheezing present diffusely.), Rales (in LLL stanley). Negative for: Accessory Muscle Use, Decreased Breath Sounds, Tachypneic Cardiovascular: Positive for: Normal S1, S2, Tachycardic. Negative for: Rub, Gallop Abdomen: Positive for: Normal Bowel Sounds, Hernias (midline hernia noted, non- tender at this time). 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) Neurological: Positive for: GCS=15, CN II-XII Intact, Speech Normal Skin: Positive for: Warm, Dry Psychiatric: Positive for: Alert, Oriented x 3, Normal Insight, Normal Concentration - Medications Active Medications: Active Medications Generic Name Dose Route Start Last Admin Trade Name Freq PRN Reason Stop Dose Admin Arformoterol Tartrate 15 mcg 12/24/18 20:00 12/25/18 07:11 Brovana IH 15 mcg [id number] NESHA Administration Budesonide 0.5 mg 12/24/18 20:00 12/25/18 07:11 Pulmicort Respules IH 0.5 mg [id number] NESHA Administration Calcium Acetate 667 mg 12/24/18 12:00 12/24/18 17:36 Phoslo PO 667 mg WM NESHA Administration Dextrose 0 ml 12/23/18 16:45 Dextrose 50% Inj IV STAT PRN Hypoglycemia Protocol Protocol Sodium Bicarbonate 75 meq/ 1,075 mls @ 80 mls/hr 12/23/18 14:30 12/25/18 00:22 Sodium Chloride IV 80 mls/hr .[id number] NESHA Administration Dextrose 1,000 mls @ 0 mls/hr 12/23/18 16:45 Dextrose 5% In Water 1000 Ml IV .Q0M PRN Hypoglycemia Protocol Protocol Per Protocol Meropenem 250 mg/ Sodium 100 mls @ 100 mls/hr 12/23/18 20:30 12/24/18 22:02 Chloride IVPB 01/01/19 20:31 100 mls/hr Q12H NESHA Administration Protocol Insulin Human Lispro 0 units 12/23/18 22:00 12/24/18 22:10 Humalog Low SC Not Given ACHS [facility] Protocol Metoprolol Tartrate 50 mg 12/24/18 10:00 12/25/18 06:31 Lopressor PO 50 mg Q8 NESHA Administration Nystatin 0 gm 12/24/18 10:00 12/24/18 17:39 Nystop Topical Powder TOP 1 applic BID NESHA Administration Sodium Bicarbonate 650 mg 12/24/18 12:00 12/25/18 06:31 Sodium Bicarbonate Tab PO 650 mg Q6 NESHA Administration - Patient Studies Lab Studies: Microbiology Studies 12/23/18 14:30 MRSA Culture (Admit) - Final Naris MRSA NOT DETECTED 12/23/18 13:00 Blood Culture - Preliminary Blood-Venous NO GROWTH AFTER 24 HOURS 12/23/18 12:30 Blood Culture - Preliminary Blood-Venous NO GROWTH AFTER 24 HOURS 12/23/18 12:10 Urine Culture - Preliminary Urine Random Gram Negative Aurelio 12/24/18 08:40 C. difficile Antigen & Toxins A,B - Final Stool Lab Studies 12/25/18 12/25/18 12/24/18 Range/Units 05:10 05:10 21:55 WBC 4.7 D (4.5-11.0) 10^3/uL RBC 3.59 (3.5-6.1) 10^6/uL Hgb 10.3 L (14.0-18.0) g/dL Hct 32.4 L (42.0-52.0) % MCV 90.3 (80.0-105.0) fl MCH 28.7 (25.0-35.0) pg MCHC 31.8 (31.0-37.0) g/dl RDW 15.8 H (11.5-14.5) % Plt Count 80 L (120.0-450.0) 10^3/uL MPV 9.7 (7.0-11.0) fl Neut % (Auto) 70.1 H (50.0-68.0) % Lymph % (Auto) 20.6 L (22.0-35.0) % [place] % (Auto) 8.5 H (1.0-6.0) % Eos % (Auto) 0.4 L (1.5-5.0) % Baso % (Auto) 0.4 (0.0-3.0) % Lymph # (Auto) 1.0 L (1.2-3.4) [place] # (Auto) 0.4 (0.1-0.6) Eos # (Auto) 0.0 (0.0-0.7) Baso # (Auto) 0.02 (0.0-2.0) K/mm3 Absolute Neuts (auto) 3.31 (1.4-6.5) pO2 (30-55) mm/Hg VBG pH (7.32-7.43) VBG pCO2 (40-60) VBG HCO3 (21-28) mmol/l VBG Total CO2 (22-28) mmol.L VBG O2 Sat (Calc) (40-65) % VBG Base Excess (0.0-2.0) mmol/L VBG Potassium (3.6-5.2) mmol/L Sodium 139 (132-148) mmol/L Chloride 111 H (98-107) mmol/L Glucose (75-110) mg/dl Lactate (0.7-2.1) mmol/L FiO2 % Crit Value Called To Crit Value Called By Blood Gas Notified Time Potassium 4.0 (3.6-5.0) mmol/L Carbon Dioxide 15 L (21-33) mmol/L Anion Gap 17 (10-20) BUN 89 H (7-21) mg/dL Creatinine 11.5 H* (0.8-1.5) mg/dl Est GFR ( Amer) 5 Est GFR (Non-Af Amer) 4 POC Glucose (mg/dL) 219 H (65-110) mg/dL Random Glucose 94 (70-110) mg/dL Hemoglobin A1c (4.2-6.5) % Calcium 6.7 L* (8.4-10.5) mg/dL Phosphorus 5.7 H (2.5-4.5) mg/dL Magnesium 1.6 L (1.7-2.2) mg/dL Total Bilirubin 0.3 (0.2-1.3) mg/dL AST 24 (17-59) U/L ALT 11 (7-56) U/L Alkaline Phosphatase 62 (38-126) U/L Total Protein 6.9 (5.8-8.3) g/dL Albumin 3.2 (3.0-4.8) g/dL Globulin 3.7 gm/dL Albumin/Globulin Ratio 0.9 L (1.1-1.8) Venous Blood Potassium (3.6-5.2) mmol/L 12/24/18 12/24/18 12/24/18 Range/Units 15:57 15:40 11:21 WBC (4.5-11.0) 10^3/uL RBC (3.5-6.1) 10^6/uL Hgb (14.0-18.0) g/dL Hct (42.0-52.0) % MCV (80.0-105.0) fl MCH (25.0-35.0) pg MCHC (31.0-37.0) g/dl RDW (11.5-14.5) % Plt Count (120.0-450.0) 10^3/uL MPV (7.0-11.0) fl Neut % (Auto) (50.0-68.0) % Lymph % (Auto) (22.0-35.0) % [place] % (Auto) (1.0-6.0) % Eos % (Auto) (1.5-5.0) % Baso % (Auto) (0.0-3.0) % Lymph # (Auto) (1.2-3.4) [place] # (Auto) (0.1-0.6) Eos # (Auto) (0.0-0.7) Baso # (Auto) (0.0-2.0) K/mm3 Absolute Neuts (auto) (1.4-6.5) pO2 49 (30-55) mm/Hg VBG pH 7.19 L* (7.32-7.43) VBG pCO2 35.0 L (40-60) VBG HCO3 13.4 L (21-28) mmol/l VBG Total CO2 14.5 L (22-28) mmol.L VBG O2 Sat (Calc) 86.8 H (40-65) % VBG Base Excess -13.8 L (0.0-2.0) mmol/L VBG Potassium 4.1 (3.6-5.2) mmol/L Sodium 135.0 (132-148) mmol/L Chloride 110.0 H (98-107) mmol/L Glucose 79 (75-110) mg/dl Lactate 1.2 (0.7-2.1) mmol/L FiO2 21.0 % Crit Value Called To Ana olson Crit Value Called By Atc Blood Gas Notified Time 1550 Potassium (3.6-5.0) mmol/L Carbon Dioxide (21-33) mmol/L Anion Gap (10-20) BUN (7-21) mg/dL Creatinine (0.8-1.5) mg/dl Est GFR ( Amer) Est GFR (Non-Af Amer) POC Glucose (mg/dL) 81 90 (65-110) mg/dL Random Glucose (70-110) mg/dL Hemoglobin A1c (4.2-6.5) % Calcium (8.4-10.5) mg/dL Phosphorus (2.5-4.5) mg/dL Magnesium (1.7-2.2) mg/dL Total Bilirubin (0.2-1.3) mg/dL AST (17-59) U/L ALT (7-56) U/L Alkaline Phosphatase (38-126) U/L Total Protein (5.8-8.3) g/dL Albumin (3.0-4.8) g/dL Globulin gm/dL Albumin/Globulin Ratio (1.1-1.8) Venous Blood Potassium 4.1 (3.6-5.2) mmol/L 12/24/18 Range/Units 05:30 WBC (4.5-11.0) 10^3/uL RBC (3.5-6.1) 10^6/uL Hgb (14.0-18.0) g/dL Hct (42.0-52.0) % MCV (80.0-105.0) fl MCH (25.0-35.0) pg MCHC (31.0-37.0) g/dl RDW (11.5-14.5) % Plt Count (120.0-450.0) 10^3/uL MPV (7.0-11.0) fl Neut % (Auto) (50.0-68.0) % Lymph % (Auto) (22.0-35.0) % [place] % (Auto) (1.0-6.0) % Eos % (Auto) (1.5-5.0) % Baso % (Auto) (0.0-3.0) % Lymph # (Auto) (1.2-3.4) [place] # (Auto) (0.1-0.6) Eos # (Auto) (0.0-0.7) Baso # (Auto) (0.0-2.0) K/mm3 Absolute Neuts (auto) (1.4-6.5) pO2 (30-55) mm/Hg VBG pH (7.32-7.43) VBG pCO2 (40-60) VBG HCO3 (21-28) mmol/l VBG Total CO2 (22-28) mmol.L VBG O2 Sat (Calc) (40-65) % VBG Base Excess (0.0-2.0) mmol/L VBG Potassium (3.6-5.2) mmol/L Sodium (132-148) mmol/L Chloride (98-107) mmol/L Glucose (75-110) mg/dl Lactate (0.7-2.1) mmol/L FiO2 % Crit Value Called To Crit Value Called By Blood Gas Notified Time Potassium (3.6-5.0) mmol/L Carbon Dioxide (21-33) mmol/L Anion Gap (10-20) BUN (7-21) mg/dL Creatinine (0.8-1.5) mg/dl Est GFR ( Amer) Est GFR (Non-Af Amer) POC Glucose (mg/dL) (65-110) mg/dL Random Glucose (70-110) mg/dL Hemoglobin A1c 5.4 (4.2-6.5) % Calcium (8.4-10.5) mg/dL Phosphorus (2.5-4.5) mg/dL Magnesium (1.7-2.2) mg/dL Total Bilirubin (0.2-1.3) mg/dL AST (17-59) U/L ALT (7-56) U/L Alkaline Phosphatase (38-126) U/L Total Protein (5.8-8.3) g/dL Albumin (3.0-4.8) g/dL Globulin gm/dL Albumin/Globulin Ratio (1.1-1.8) Venous Blood Potassium (3.6-5.2) mmol/L Laboratory Results - last 24 hr 12/24/18 12/24/18 12/24/18 05:30 11:21 15:40 WBC RBC Hgb Hct MCV MCH MCHC RDW Plt Count MPV Neut % (Auto) Lymph % (Auto) [place] % (Auto) Eos % (Auto) Baso % (Auto) Lymph # (Auto) [place] # (Auto) Eos # (Auto) Baso # (Auto) Absolute Neuts (auto) pO2 49 VBG pH 7.19 L* VBG pCO2 35.0 L VBG HCO3 13.4 L VBG Total CO2 14.5 L VBG O2 Sat (Calc) 86.8 H VBG Base Excess -13.8 L VBG Potassium 4.1 Sodium 135.0 Chloride 110.0 H Glucose 79 Lactate 1.2 FiO2 21.0 Crit Value Called To Ana olson Crit Value Called By Atc Blood Gas Notified Time 1550 Potassium Carbon Dioxide Anion Gap BUN Creatinine Est GFR ( Amer) Est GFR (Non-Af Amer) POC Glucose (mg/dL) 90 Random Glucose Hemoglobin A1c 5.4 Calcium Phosphorus Magnesium Total Bilirubin AST ALT Alkaline Phosphatase Total Protein Albumin Globulin Albumin/Globulin Ratio Venous Blood Potassium 4.1 12/24/18 12/24/18 12/25/18 15:57 21:55 05:10 WBC 4.7 D RBC 3.59 Hgb 10.3 L Hct 32.4 L MCV 90.3 MCH 28.7 MCHC 31.8 RDW 15.8 H Plt Count 80 L MPV 9.7 Neut % (Auto) 70.1 H Lymph % (Auto) 20.6 L [place] % (Auto) 8.5 H Eos % (Auto) 0.4 L Baso % (Auto) 0.4 Lymph # (Auto) 1.0 L [place] # (Auto) 0.4 Eos # (Auto) 0.0 Baso # (Auto) 0.02 Absolute Neuts (auto) 3.31 pO2 VBG pH VBG pCO2 VBG HCO3 VBG Total CO2 VBG O2 Sat (Calc) VBG Base Excess VBG Potassium Sodium Chloride Glucose Lactate FiO2 Crit Value Called To Crit Value Called By Blood Gas Notified Time Potassium Carbon Dioxide Anion Gap BUN Creatinine Est GFR ( Amer) Est GFR (Non-Af Amer) POC Glucose (mg/dL) 81 219 H Random Glucose Hemoglobin A1c Calcium Phosphorus Magnesium Total Bilirubin AST ALT Alkaline Phosphatase Total Protein Albumin Globulin Albumin/Globulin Ratio Venous Blood Potassium 12/25/18 05:10 WBC RBC Hgb Hct MCV MCH MCHC RDW Plt Count MPV Neut % (Auto) Lymph % (Auto) [place] % (Auto) Eos % (Auto) Baso % (Auto) Lymph # (Auto) [place] # (Auto) Eos # (Auto) Baso # (Auto) Absolute Neuts (auto) pO2 VBG pH VBG pCO2 VBG HCO3 VBG Total CO2 VBG O2 Sat (Calc) VBG Base Excess VBG Potassium Sodium 139 Chloride 111 H Glucose Lactate FiO2 Crit Value Called To Crit Value Called By Blood Gas Notified Time Potassium 4.0 Carbon Dioxide 15 L Anion Gap 17 BUN 89 H Creatinine 11.5 H* Est GFR ( Amer) 5 Est GFR (Non-Af Amer) 4 POC Glucose (mg/dL) Random Glucose 94 Hemoglobin A1c Calcium 6.7 L* Phosphorus 5.7 H Magnesium 1.6 L Total Bilirubin 0.3 AST 24 ALT 11 Alkaline Phosphatase 62 Total Protein 6.9 Albumin 3.2 Globulin 3.7 Albumin/Globulin Ratio 0.9 L Venous Blood Potassium Radiology Impressions: Radiology Impressions Abdomen/Pelvis CT 12/23/18 14:25 IMPRESSION: 1. Potential posterior rectal/upper anal sinus tract or fistula. No definite colovesical fistula appreciated. 2. Lax anterior abdominal wall reiterated containing bowel loops without definitive hernia pattern. 3. Chronic perinephric/periureteral reaction reiterated, greater the right than left sides, with fullness of the bilateral caliceal systems in the kidneys and right pelvis. Sensitive urolithiasis identified in the right kidney and renal pelvis with 2.1 cm irregular calculus potentially functioning as a ball valve mechanism causing limited right hydronephrosis. Right pyelonephritis not excluded. 4. Grossly thickened urinary bladder wall status post Villalba catheter placement completely decompressing the bladder. Comparison is limited due to current catheter related decompression not previously shown. Moderate thickening was previously shown but the bladder was more distended. Clinically correlate for potential interval cystitis or neoplasm. Preliminary report from [employer], 08/04/2018, 10:34 p.m.. EKG/Cardiology Studies: Cardiology / EKG Studies 12/24/18 07:00 EKG [ELECTROCARDIOGRAM] Routine Comment: Reason For Exam: aflutter PRE OP:: N Does Patient Have a Pacemaker?: Yes Fingerstick Blood Sugar Results: 219 Critical Care Progress Note - Nutrition Nutrition: Nutrition Category Date Time Status Renal Diet [DIET] Diets 12/23/18 Dinner Ordered Assessment/Plan - Assessment and Plan (Free Text) Assessment: Pt is a 68 yo M with pmhx of coronary artery disease, anal fistula, CKD, neurogenic bladder, recurrent UTI's, right hydronephrosis w/ stones, PVD, diabetes, colonic fistula, hernia, and colostomy who presents to the ER for compliant of rectal bleeding x2days. ICU consulted due to the pt being tachy, and BRBPR. 1. Tachycardia 2. BRBPR 3. ARF on CKD Plan: Neuro: - AOx3 Cadio: Tachycardia likely 2/2 dehydration vs GI Bleed - Pt was given dig per cardio yesterday, will cont to monitor - Tachy has resolved - IVF @ 80/hr - Maintain MAP >65 - PO lopressor to 50 q8 with BP and HR holding parameters - Pt denies chest pain or diaphoresis - Cardio consulted - Cont to monitor Pulm: - Maintain O2 sat >92 GI: BRBPR: - Pt states that it is painless bleed - Denies hematochezia or melena - Pt had no bloody BMs overnight per nursing - C. Diff pending - GI Consulted, recs appreciated - Hg:now 10.3 - f/u cbc in AM and cont to monitor - IVF, bolus and maintaince @80/hr Heme: Anemia s/p 1u pRBC transfusion: - Pt is back to baseline Hg - Pt was transfused 1 unit pRBC 11/26/18 and responded appropriately - Pt had no bloody BMs overnight per nursing Nephro: ARF on CKD: - IVF hydration - Permacath placement for today - May need dialysis as acidosis is persistent - Nephro consulted Endo: - Maintain euglycemia Case seen and discussed with Dr. Ijeoma Maurer, PGY1 <Florecita Raphael - Last Filed: 12/25/18 16:14> CCU Objective - Vital Signs / Intake & Output Vital Signs (Last 4 hours): Vital Signs Pulse BP 12/25/18 15:14 78 149/86 Intake and Output (Last 8hrs): Intake & Output 12/25/18 12/25/18 12/25/18 06:59 14:59 22:59 Intake Total 900 Output Total 450 Balance 450 Weight 87.997 kg Intake: IV 900 Right Forearm 900 Output: Urine 450 2-way Urethral 450 Stool 0 - Medications Active Medications: Active Medications Generic Name Dose Route Start Last Admin Trade Name Freq PRN Reason Stop Dose Admin Arformoterol Tartrate 15 mcg 12/24/18 20:00 12/25/18 07:11 Brovana IH 15 mcg [id number] NESHA Administration Budesonide 0.5 mg 12/24/18 20:00 12/25/18 07:11 Pulmicort Respules IH 0.5 mg [id number] NESHA Administration Calcium Acetate 667 mg 12/24/18 12:00 12/25/18 11:25 Phoslo PO 667 mg WM NESHA Administration Dextrose 0 ml 12/23/18 16:45 Dextrose 50% Inj IV STAT PRN Hypoglycemia Protocol Protocol Sodium Bicarbonate 75 meq/ 1,075 mls @ 80 mls/hr 12/23/18 14:30 12/25/18 00:22 Sodium Chloride IV 80 mls/hr .[id number] NESHA Administration Dextrose 1,000 mls @ 0 mls/hr 12/23/18 16:45 Dextrose 5% In Water 1000 Ml IV .Q0M PRN Hypoglycemia Protocol Protocol Per Protocol Meropenem 250 mg/ Sodium 100 mls @ 100 mls/hr 12/23/18 20:30 12/25/18 08:36 Chloride IVPB 01/01/19 20:31 100 mls/hr Q12H NESHA Administration Protocol Insulin Human Lispro 0 units 12/23/18 22:00 12/25/18 11:45 Humalog Low SC Not Given ACHS NESHA Protocol Metoprolol Tartrate 50 mg 12/24/18 10:00 12/25/18 15:14 Lopressor PO Not Given Q8 NESHA Nystatin 0 gm 12/24/18 10:00 12/24/18 17:39 Nystop Topical Powder TOP 1 applic BID NESHA Administration Sodium Bicarbonate 650 mg 12/24/18 12:00 12/25/18 11:25 Sodium Bicarbonate Tab PO 650 mg Q6 NESHA Administration - Patient Studies Lab Studies: Microbiology Studies 12/23/18 13:00 Blood Culture - Preliminary Blood-Venous NO GROWTH AFTER 48 HOURS 12/23/18 12:30 Blood Culture - Preliminary Blood-Venous NO GROWTH AFTER 48 HOURS 12/24/18 00:30 Urine Culture - Preliminary Urine,Villalba Gram Negative Aurelio 12/23/18 12:10 Urine Culture - Final Urine Random Morg Morganii Ss Morganii 12/23/18 14:30 MRSA Culture (Admit) - Final Naris MRSA NOT DETECTED 12/24/18 08:40 C. difficile Antigen & Toxins A,B - Final Stool Lab Studies 12/25/18 12/25/18 12/25/18 Range/Units 12:03 11:35 08:04 WBC (4.5-11.0) 10^3/uL RBC (3.5-6.1) 10^6/uL Hgb (14.0-18.0) g/dL Hct (42.0-52.0) % MCV (80.0-105.0) fl MCH (25.0-35.0) pg MCHC (31.0-37.0) g/dl RDW (11.5-14.5) % Plt Count (120.0-450.0) 10^3/uL MPV (7.0-11.0) fl Neut % (Auto) (50.0-68.0) % Lymph % (Auto) (22.0-35.0) % [place] % (Auto) (1.0-6.0) % Eos % (Auto) (1.5-5.0) % Baso % (Auto) (0.0-3.0) % Lymph # (Auto) (1.2-3.4) [place] # (Auto) (0.1-0.6) Eos # (Auto) (0.0-0.7) Baso # (Auto) (0.0-2.0) K/mm3 Absolute Neuts (auto) (1.4-6.5) PT 14.8 H (9.4-12.5) SECONDS INR 1.31 APTT 32.0 (26.9-38.3) Seconds Sodium (132-148) mmol/L Potassium (3.6-5.0) mmol/L Chloride (98-107) mmol/L Carbon Dioxide (21-33) mmol/L Anion Gap (10-20) BUN (7-21) mg/dL Creatinine (0.8-1.5) mg/dl Est GFR ( Amer) Est GFR (Non-Af Amer) POC Glucose (mg/dL) 112 H 74 (65-110) mg/dL Random Glucose (70-110) mg/dL Calcium (8.4-10.5) mg/dL Phosphorus (2.5-4.5) mg/dL Magnesium (1.7-2.2) mg/dL Total Bilirubin (0.2-1.3) mg/dL AST (17-59) U/L ALT (7-56) U/L Alkaline Phosphatase (38-126) U/L Total Protein (5.8-8.3) g/dL Albumin (3.0-4.8) g/dL Globulin gm/dL Albumin/Globulin Ratio (1.1-1.8) HIV 1&2 Ag/Ab, 4th Gen (Nonreactive) 12/25/18 12/25/18 12/24/18 Range/Units 05:10 05:10 21:55 WBC 4.7 D (4.5-11.0) 10^3/uL RBC 3.59 (3.5-6.1) 10^6/uL Hgb 10.3 L (14.0-18.0) g/dL Hct 32.4 L (42.0-52.0) % MCV 90.3 (80.0-105.0) fl MCH 28.7 (25.0-35.0) pg MCHC 31.8 (31.0-37.0) g/dl RDW 15.8 H (11.5-14.5) % Plt Count 80 L (120.0-450.0) 10^3/uL MPV 9.7 (7.0-11.0) fl Neut % (Auto) 70.1 H (50.0-68.0) % Lymph % (Auto) 20.6 L (22.0-35.0) % [place] % (Auto) 8.5 H (1.0-6.0) % Eos % (Auto) 0.4 L (1.5-5.0) % Baso % (Auto) 0.4 (0.0-3.0) % Lymph # (Auto) 1.0 L (1.2-3.4) [place] # (Auto) 0.4 (0.1-0.6) Eos # (Auto) 0.0 (0.0-0.7) Baso # (Auto) 0.02 (0.0-2.0) K/mm3 Absolute Neuts (auto) 3.31 (1.4-6.5) PT (9.4-12.5) SECONDS INR APTT (26.9-38.3) Seconds Sodium 139 (132-148) mmol/L Potassium 4.0 (3.6-5.0) mmol/L Chloride 111 H (98-107) mmol/L Carbon Dioxide 15 L (21-33) mmol/L Anion Gap 17 (10-20) BUN 89 H (7-21) mg/dL Creatinine 11.5 H* (0.8-1.5) mg/dl Est GFR ( Amer) 5 Est GFR (Non-Af Amer) 4 POC Glucose (mg/dL) 219 H (65-110) mg/dL Random Glucose 94 (70-110) mg/dL Calcium 6.7 L* (8.4-10.5) mg/dL Phosphorus 5.7 H (2.5-4.5) mg/dL Magnesium 1.6 L (1.7-2.2) mg/dL Total Bilirubin 0.3 (0.2-1.3) mg/dL AST 24 (17-59) U/L ALT 11 (7-56) U/L Alkaline Phosphatase 62 (38-126) U/L Total Protein 6.9 (5.8-8.3) g/dL Albumin 3.2 (3.0-4.8) g/dL Globulin 3.7 gm/dL Albumin/Globulin Ratio 0.9 L (1.1-1.8) HIV 1&2 Ag/Ab, 4th Gen (Nonreactive) 12/24/18 12/24/18 12/24/18 Range/Units 15:57 13:00 11:21 WBC (4.5-11.0) 10^3/uL RBC (3.5-6.1) 10^6/uL Hgb (14.0-18.0) g/dL Hct (42.0-52.0) % MCV (80.0-105.0) fl MCH (25.0-35.0) pg MCHC (31.0-37.0) g/dl RDW (11.5-14.5) % Plt Count (120.0-450.0) 10^3/uL MPV (7.0-11.0) fl Neut % (Auto) (50.0-68.0) % Lymph % (Auto) (22.0-35.0) % [place] % (Auto) (1.0-6.0) % Eos % (Auto) (1.5-5.0) % Baso % (Auto) (0.0-3.0) % Lymph # (Auto) (1.2-3.4) [place] # (Auto) (0.1-0.6) Eos # (Auto) (0.0-0.7) Baso # (Auto) (0.0-2.0) K/mm3 Absolute Neuts (auto) (1.4-6.5) PT (9.4-12.5) SECONDS INR APTT (26.9-38.3) Seconds Sodium (132-148) mmol/L Potassium (3.6-5.0) mmol/L Chloride (98-107) mmol/L Carbon Dioxide (21-33) mmol/L Anion Gap (10-20) BUN (7-21) mg/dL Creatinine (0.8-1.5) mg/dl Est GFR ( Amer) Est GFR (Non-Af Amer) POC Glucose (mg/dL) 81 90 (65-110) mg/dL Random Glucose (70-110) mg/dL Calcium (8.4-10.5) mg/dL Phosphorus (2.5-4.5) mg/dL Magnesium (1.7-2.2) mg/dL Total Bilirubin (0.2-1.3) mg/dL AST (17-59) U/L ALT (7-56) U/L Alkaline Phosphatase (38-126) U/L Total Protein (5.8-8.3) g/dL Albumin (3.0-4.8) g/dL Globulin gm/dL Albumin/Globulin Ratio (1.1-1.8) HIV 1&2 Ag/Ab, 4th Gen Nonreactive (Nonreactive) Laboratory Results - last 24 hr 12/24/18 12/24/18 12/24/18 11:21 13:00 15:57 WBC RBC Hgb Hct MCV MCH MCHC RDW Plt Count MPV Neut % (Auto) Lymph % (Auto) [place] % (Auto) Eos % (Auto) Baso % (Auto) Lymph # (Auto) [place] # (Auto) Eos # (Auto) Baso # (Auto) Absolute Neuts (auto) PT INR APTT Sodium Potassium Chloride Carbon Dioxide Anion Gap BUN Creatinine Est GFR ( Amer) Est GFR (Non-Af Amer) POC Glucose (mg/dL) 90 81 Random Glucose Calcium Phosphorus Magnesium Total Bilirubin AST ALT Alkaline Phosphatase Total Protein Albumin Globulin Albumin/Globulin Ratio HIV 1&2 Ag/Ab, 4th Gen Nonreactive 12/24/18 12/25/18 12/25/18 21:55 05:10 05:10 WBC 4.7 D RBC 3.59 Hgb 10.3 L Hct 32.4 L MCV 90.3 MCH 28.7 MCHC 31.8 RDW 15.8 H Plt Count 80 L MPV 9.7 Neut % (Auto) 70.1 H Lymph % (Auto) 20.6 L [place] % (Auto) 8.5 H Eos % (Auto) 0.4 L Baso % (Auto) 0.4 Lymph # (Auto) 1.0 L [place] # (Auto) 0.4 Eos # (Auto) 0.0 Baso # (Auto) 0.02 Absolute Neuts (auto) 3.31 PT INR APTT Sodium 139 Potassium 4.0 Chloride 111 H Carbon Dioxide 15 L Anion Gap 17 BUN 89 H Creatinine 11.5 H* Est GFR ( Amer) 5 Est GFR (Non-Af Amer) 4 POC Glucose (mg/dL) 219 H Random Glucose 94 Calcium 6.7 L* Phosphorus 5.7 H Magnesium 1.6 L Total Bilirubin 0.3 AST 24 ALT 11 Alkaline Phosphatase 62 Total Protein 6.9 Albumin 3.2 Globulin 3.7 Albumin/Globulin Ratio 0.9 L HIV 1&2 Ag/Ab, 4th Gen 12/25/18 12/25/18 12/25/18 08:04 11:35 12:03 WBC RBC Hgb Hct MCV MCH MCHC RDW Plt Count MPV Neut % (Auto) Lymph % (Auto) [place] % (Auto) Eos % (Auto) Baso % (Auto) Lymph # (Auto) [place] # (Auto) Eos # (Auto) Baso # (Auto) Absolute Neuts (auto) PT 14.8 H INR 1.31 APTT 32.0 Sodium Potassium Chloride Carbon Dioxide Anion Gap BUN Creatinine Est GFR ( Amer) Est GFR (Non-Af Amer) POC Glucose (mg/dL) 74 112 H Random Glucose Calcium Phosphorus Magnesium Total Bilirubin AST ALT Alkaline Phosphatase Total Protein Albumin Globulin Albumin/Globulin Ratio HIV 1&2 Ag/Ab, 4th Gen Radiology Impressions: Radiology Impressions Chest X-Ray 12/25/18 08:19 IMPRESSION: No active disease. Critical Care Progress Note - Nutrition Nutrition: Nutrition Category Date Time Status Renal Diet [DIET] Diets 12/23/18 Dinner Ordered Addendum Addendum: 12/25/18 16:06 [facility] Attending Addendum Patient seen and examined with housestaff agree with resident note above with the following add/exceptions: 68 M with pmhx of coronary artery disease, anal fistula, CKD, neurogenic bladder, recurrent UTI's, right hydronephrosis w/ stones, PVD, diabetes, colonic fistula, hernia, and colostomy admitted with tachycardia, dehydration, possible rectal bleeding and acute on chronic renal failure overall fluid positive has urine output but still persistent acidosis - indication for HD for permcath today then start HD as per nephro hb stable, no signs of active bleeding cardio consult for tachcyardia hr stable now given dig cont BB f/u culture uro on for gi/gu fisutla concern doubt sepsis at this point with no fevers, no leukocystosis rest of care as noted above Folrecita Raphael MD [facility]U Attending
--- NOTE | 2018-12-25 08:18 | CP.PCM.PN ---
Subjective - Date & Time of Evaluation Date of Evaluation: 12/25/18 Time of Evaluation: 07:30 - Subjective Subjective: General Surgery Progress ntoe for Dr. Moncada Patient seen and examined this morning. Patient agitated and confused overnight per nursing, pulled out IV. Patient indicates his last BM was yesterday and non bloody. He has not had a bloody BM x 2 days. Patient states he no longer wants to be in the ICU. He denies any SCHMIDT, CP, abdominal pain, n/v and f/c. Objective - Vital Signs/Intake and Output Vital Signs (last 24 hours): Temp Pulse Resp BP Pulse Ox 98.5 F 91 H 23 132/80 94 L 12/24/18 16:00 12/25/18 06:31 12/24/18 18:00 12/25/18 06:31 12/24/18 18:00 Intake and Output: 12/25/18 12/25/18 06:59 18:59 Intake Total 900 Output Total 450 Balance 450 - Medications Medications: Current Medications Arformoterol Tartrate (Brovana) 15 mcg [facility] [id number] [facility] Last Admin: 12/25/18 07:11 Dose: 15 mcg Budesonide (Pulmicort Respules) 0.5 mg IH [id number] [facility] Last Admin: 12/25/18 07:11 Dose: 0.5 mg Calcium Acetate (Phoslo) 667 mg PO WM [facility] Last Admin: 12/24/18 17:36 Dose: 667 mg Dextrose (Dextrose 50% Inj) 0 ml IV STAT PRN; Protocol PRN Reason: Hypoglycemia Protocol Sodium Bicarbonate 75 meq/ (Sodium Chloride) 1,075 mls @ 80 mls/hr IV .[id number] [facility] Last Admin: 12/25/18 00:22 Dose: 80 mls/hr Dextrose (Dextrose 5% In Water 1000 Ml) 1,000 mls @ 0 mls/hr IV .Q0M PRN; Protocol PRN Reason: Hypoglycemia Protocol Meropenem 250 mg/ Sodium (Chloride) 100 mls @ 100 mls/hr IVPB Q12H [facility]; Protocol Stop: 01/01/19 20:31 Last Admin: 12/24/18 22:02 Dose: 100 mls/hr Insulin Human Lispro (Humalog Low) 0 units SC ACHS [facility]; Protocol Last Admin: 12/24/18 22:10 Dose: Not Given Metoprolol Tartrate (Lopressor) 50 mg PO Q8 [facility] Last Admin: 12/25/18 06:31 Dose: 50 mg Nystatin (Nystop Topical Powder) 0 gm TOP BID [facility] Last Admin: 12/24/18 17:39 Dose: 1 applic Sodium Bicarbonate (Sodium Bicarbonate Tab) 650 mg PO Q6 [facility] Last Admin: 12/25/18 06:31 Dose: 650 mg - Labs Labs: 12/25/18 05:10 12/25/18 05:10 PT 14.4 SECONDS (9.4-12.5) H 12/23/18 10:40 INR 1.27 12/23/18 10:40 APTT 34.9 Seconds (26.9-38.3) 12/23/18 10:40 - Constitutional Appears: Well, Non-toxic, No Acute Distress - Head Exam Head Exam: ATRAUMATIC - Eye Exam Eye Exam: EOMI - ENT Exam ENT Exam: Mucous Membranes Moist - Respiratory Exam Respiratory Exam: NORMAL BREATHING PATTERN - Cardiovascular Exam Cardiovascular Exam: REGULAR RHYTHM - GI/Abdominal Exam GI & Abdominal Exam: Soft. absent: Guarding, Tenderness, Rebound - Extremities Exam Extremities Exam: absent: Calf Tenderness - Neurological Exam Neurological Exam: Alert, Awake, Oriented x3 - Psychiatric Exam Psychiatric exam: Normal Affect, Normal Mood - Skin Skin Exam: Dry, Intact, Normal Color, Warm Assessment and Plan - Assessment and Plan (Free Text) Assessment: 68 M with GI bleed (resolved), stable hgb Plan: H&H stable no further bloody BM No surgical intervention needed at this time management of UTI, renal disease, further GI workup as per Primary and GI team respectively discussed with Dr. Antwan Cortes, PGY 1
[2018-12-25] MEDS ORDERED: Magnesium Sulfate 2 gm/50 ml 2 GM/50 ML BAG IVPB ONE (08:34)
[2018-12-25] MEDS: Insulin Lispro (humaLOG) LOW Coverage SC SCH ×4 (08:36→22:34)
[2018-12-25] MEDS: Nystatin 100,000 Units/gm Topical Pow(15 gm) TOP SCH ×2 (10:10→17:58)
--- NOTE | 2018-12-25 11:00 | CP.PCM.PN ---
<Robert Morris - Last Filed: 12/25/18 17:41> Subjective - Date & Time of Evaluation Date of Evaluation: 12/25/18 Time of Evaluation: 10:57 - Subjective Subjective: patient is doing well, alert and oriented. He was previously pulling out his IVs however he is much more calm now. No complaints. No GI bleeding. He is to lerating diet. Denies abdominal pain, nausea, vomiting. Objective - Vital Signs/Intake and Output Vital Signs (last 24 hours): Temp Pulse Resp BP Pulse Ox 98.5 F 91 H 23 132/80 94 L 12/24/18 16:00 12/25/18 06:31 12/24/18 18:00 12/25/18 06:31 12/24/18 18:00 Intake and Output: 12/25/18 12/25/18 06:59 18:59 Intake Total 900 Output Total 450 Balance 450 - Medications Medications: Current Medications Arformoterol Tartrate (Brovana) 15 mcg IH [id number] [facility] Last Admin: 12/25/18 07:11 Dose: 15 mcg Budesonide (Pulmicort Respules) 0.5 mg IH [id number] [facility] Last Admin: 12/25/18 07:11 Dose: 0.5 mg Calcium Acetate (Phoslo) 667 mg PO WM [facility] Last Admin: 12/25/18 08:38 Dose: 667 mg Dextrose (Dextrose 50% Inj) 0 ml IV STAT PRN; Protocol PRN Reason: Hypoglycemia Protocol Sodium Bicarbonate 75 meq/ (Sodium Chloride) 1,075 mls @ 80 mls/hr IV .[id number] [facility] Last Admin: 12/25/18 00:22 Dose: 80 mls/hr Dextrose (Dextrose 5% In Water 1000 Ml) 1,000 mls @ 0 mls/hr IV .Q0M PRN; Protocol PRN Reason: Hypoglycemia Protocol Meropenem 250 mg/ Sodium (Chloride) 100 mls @ 100 mls/hr IVPB Q12H [facility]; Protocol Stop: 01/01/19 20:31 Last Admin: 12/25/18 08:36 Dose: 100 mls/hr Insulin Human Lispro (Humalog Low) 0 units SC ACHS [facility]; Protocol Last Admin: 12/25/18 08:36 Dose: Not Given Metoprolol Tartrate (Lopressor) 50 mg PO Q8 [facility] Last Admin: 12/25/18 06:31 Dose: 50 mg Nystatin (Nystop Topical Powder) 0 gm TOP BID [facility] Last Admin: 12/24/18 17:39 Dose: 1 applic Sodium Bicarbonate (Sodium Bicarbonate Tab) 650 mg PO Q6 [facility] Last Admin: 12/25/18 06:31 Dose: 650 mg - Labs Labs: 12/25/18 05:10 12/25/18 05:10 PT 14.4 SECONDS (9.4-12.5) H 12/23/18 10:40 INR 1.27 12/23/18 10:40 APTT 34.9 Seconds (26.9-38.3) 12/23/18 10:40 - Constitutional Appears: Non-toxic, No Acute Distress, Chronically Ill - Head Exam Head Exam: ATRAUMATIC, NORMAL INSPECTION - Respiratory Exam Respiratory Exam: Clear to Ausculation Bilateral, NORMAL BREATHING PATTERN - Cardiovascular Exam Cardiovascular Exam: Tachycardia, +S1, +S2 - GI/Abdominal Exam GI & Abdominal Exam: Soft, Normal Bowel Sounds. absent: Tenderness - Neurological Exam Neurological Exam: Alert, Awake, Oriented x3 - Skin Skin Exam: Normal Color, Warm Assessment and Plan - Assessment and Plan (Free Text) Assessment: #Hematochezia - DDx: diverticular bleed, other mucosal ulceration/lesion, rectal disease #Hypovolemia #Vasculopathy with CAD, diabetes and PVD #CKD with planned AV fistula for dialysis #Chronic rectal disease s/p colostomy reversal PLAN: -CT reviewed and shows likely rectal fistula however no colovesicular fistula. No obvious colonic inflammation. -Avoid anticoagulation and NSAIDs -Trend hemoglobin -Stool/blood culture pending. cdiff neg. Case discussed with Dr. Veliz, see attestation. <Clifton Veliz V - Last Filed: 12/25/18 23:19> Objective - Vital Signs/Intake and Output Vital Signs (last 24 hours): Temp Pulse Resp BP Pulse Ox 98.5 F 88 27 H 146/37 L 96 12/24/18 16:00 12/25/18 21:45 12/25/18 18:47 12/25/18 21:45 12/25/18 18:47 Intake and Output: 12/25/18 12/26/18 18:59 06:59 Intake Total 1420 Output Total 1500 Balance -80 - Medications Medications: Current Medications Arformoterol Tartrate (Brovana) 15 mcg IH [id number] [facility] Last Admin: 12/25/18 20:12 Dose: Not Given Budesonide (Pulmicort Respules) 0.5 mg IH [id number] [facility] Last Admin: 12/25/18 20:12 Dose: Not Given Calcium Acetate (Phoslo) 667 mg PO WM [facility] Last Admin: 12/25/18 17:55 Dose: 667 mg Dextrose (Dextrose 50% Inj) 0 ml IV STAT PRN; Protocol PRN Reason: Hypoglycemia Protocol Sodium Bicarbonate 75 meq/ (Sodium Chloride) 1,075 mls @ 80 mls/hr IV .[id number] [facility] Last Admin: 12/25/18 00:22 Dose: 80 mls/hr Dextrose (Dextrose 5% In Water 1000 Ml) 1,000 mls @ 0 mls/hr IV .Q0M PRN; Protocol PRN Reason: Hypoglycemia Protocol Meropenem 250 mg/ Sodium (Chloride) 100 mls @ 100 mls/hr IVPB Q12H [facility]; Protocol Stop: 01/01/19 20:31 Last Admin: 12/25/18 21:46 Dose: 100 mls/hr Insulin Human Lispro (Humalog Low) 0 units SC ACHS [facility]; Protocol Last Admin: 12/25/18 22:34 Dose: Not Given Metoprolol Tartrate (Lopressor) 50 mg PO Q8 [facility] Last Admin: 12/25/18 21:45 Dose: 50 mg Nystatin (Nystop Topical Powder) 0 gm TOP BID [facility] Last Admin: 12/25/18 17:58 Dose: 1 applic Sodium Bicarbonate (Sodium Bicarbonate Tab) 650 mg PO Q6 [facility] Last Admin: 12/25/18 17:53 Dose: 650 mg - Labs Labs: 12/25/18 05:10 12/25/18 05:10 PT 14.8 SECONDS (9.4-12.5) H 12/25/18 11:35 INR 1.31 12/25/18 11:35 APTT 32.0 Seconds (26.9-38.3) 12/25/18 11:35 Attending/Attestation - Attestation I have personally seen and examined this patient.: Yes I have fully participated in the care of the patient.: Yes I have reviewed all pertinent clinical information, including history, physical exam and plan: Yes Notes (Text): This is an addendum to GI progress report dictated by the GI Fellow. The patient was seen and examined earlier. Medical records, lab studies, imagings were reviewed. Last 24 hours events reviewed. Agreed with the above treatment plan as outlined in GI Fellow 's notes with the addition of the following MR fistulogram could not be done as patient has pacemaker Hemoglobin remained stable History of rectal bleeding Consider flex sig if needed based on the clinical course 12/25/18 23:18
--- NOTE | 2018-12-25 11:03 | CON ---
DATE: 12/25/2018 UROLOGY CONSULTATION HISTORY: From the patient, from the chart, and from Dr. Frost. The patient is currently in the Intensive Care Unit with infection. He has renal compromise. He has bilateral stone disease. He has a neurogenic bladder that he catheterizes himself. There is even a question of a fistula. PAST MEDICAL AND SURGICAL HISTORY: As listed on the chart. REVIEW OF SYSTEMS: Listed above. PHYSICAL EXAMINATION: GENERAL: He is a well-nourished male. He is currently resting comfortably. VITAL SIGNS: Noted. LABORATORY DATA: The labs are noted. CT scan: I have had a chance to review, it is very difficult to evaluate, he definitely has stones in both kidneys. He has hydro, at least on the right side. I am going to plan to review the films further with radiologist. DIAGNOSES: From a urology standpoint, urolithiasis, hematuria, stone disease, neurogenic bladder, even possibly a fistula. PLAN: Again, I need to review the films further with the radiologist and then make recommendations. In the meantime, he is getting antibiotics. From a urology standpoint, this is a complicated story, sometimes it may be even be appropriate, especially if the patient is going to be leaning toward dialysis, to remove the kidneys and the stones all at one time, though I do not know if he is a great surgical candidate from a medical standpoint. But the idea of recurrent sepsis is a very significant concern. The patient reports he previously had another urologist that preferred not to try to remove the stones given the difficult nature and this would be our general recommendation as well. So for now, the plan is as follows: Maintain the antibiotics, treat the patient in the ICU. We will monitor, we will report to Dr. Frost further plans. Benny Villavicencio MD
--- NOTE | 2018-12-25 11:32 | RAD ---
Date of service: 12/25/2018 HISTORY: Worsening rales, wheezing COMPARISON: 12/23/2018 FINDINGS: LUNGS: No active pulmonary disease. PLEURA: No significant pleural effusion identified, no pneumothorax apparent. CARDIOVASCULAR: No aortic atherosclerotic calcification present. Mild cardiomegaly. Single lead pacemaker no pulmonary vascular congestion. OSSEOUS STRUCTURES: No significant abnormalities. VISUALIZED UPPER ABDOMEN: Normal. OTHER FINDINGS: None. IMPRESSION: No active disease.
[2018-12-25 11:53] LABS: INR 1.31; PROTHROMBIN TIME 14.8 SECONDS (9.4-12.5)
--- NOTE | 2018-12-25 12:42 | PN ---
DATE: 12/25/2018 SUBJECTIVE: A 68-year-old male in the Intensive Care Unit. Nursing staff relates that during the evening hours, the patient became a little agitated, pulling his lines out. The patient states that he was getting frustrated. OBJECTIVE: VITAL SIGNS: Currently his temperature is 98, his pulse is 91, his blood pressure is 132/80. He is alert and oriented x3. LUNGS: Show bibasilar rhonchi. HEART: Is in S1, S2 rhythm. ABDOMEN: Soft with positive bowel sounds. There is an abdominal hernia present. EXTREMITIES: Show no evidence of edema. LABORATORY DATA: Shows a WBC of 4.7, RBC of 3.59, hemoglobin 10.3, hematocrit 32.4, platelet count is 80,000. Chemistry shows sodium of 139, potassium 4, chloride 111, his CO2 was 15. His anion gap is 17. His BUN is 89 with a creatinine of 11.5. His random blood sugar this morning was 94. His calcium is 6.7, phosphorus is 5.7, magnesium is 1.6. His LFTs are normal. Microbiological studies to date, his urine is showing Gram-negative rods. The blood cultures are negative at 24 hours. MRSA screen is not detected and the C. diff antigen and toxin are both negative. Currently, the patient is receiving Brovana treatments. He is on IV D5W. He is on a sliding insulin scale. He is on Lopressor 50 every 8 hours. He has been placed on meropenem by Infectious Disease. He is on calcium acetate, PhosLo 667 mg with meals, he has been placed on Pulmicort every 12 hours, he is on a sodium bicarb drip. ASSESSMENT AND PLAN: 1. After discussion with the Intensive Care hydraulic dredge operator and with renal Dr. Vail, it has been advised that the patient would benefit from going on to dialysis, request is being made with Dr. Allen Ellington for placement of a PermCath as recommended by Dr. Vail as well as a PICC line. 2. He will continue on his IV antibiotics at this time the identification of the organism in the urine is pending. 3. Urology is following the patient, Dr. Villavicencio because of the findings on the CAT scan and his history of right hydronephrosis with stones, his recurrent urinary tract infections. Cardiology is following the patient because of a history of tachycardia. He has a pacemaker and a history of coronary disease from the past. He is being followed by GI because he had bright red blood per rectum before and he has been having some loose pasty stools. He is also being followed by renal for his renal failure. He was anticipated to have an AV fistula created prior to his admission into the hospital. All the clinical data to this point have been discussed with members of the management team as well as with the patient and the individual consultants. Continue to monitor the patient closely and he is also being followed by surgery with a concern for the possibility of a colovesical fistula. Ana Frost MD
[2018-12-25] MEDS ORDERED: Lidocaine PF 2% (5 ml) Inj (For Cardiac Arrhy) ONE (12:58)
[2018-12-25] MEDS ORDERED: Midazolam 2 MG/2 ML VIAL ONE (13:16)
--- NOTE | 2018-12-25 14:34 | PN ---
DATE: 12/25/2018 SUBJECTIVE: The patient is seen lying in bed in the CCU. He remains in atrial flutter with improved heart rate control. He feels somewhat better. He has had no recurrent blood in his stool. His hemoglobin remained stable. He awaits placement of dialysis access. He will likely need short-term dialysis catheter prior to his fistula placement. His current medications include Brovana, IV fluids, metoprolol 50 mg every 8 hours, meropenem, PhosLo, Pulmicort, and sodium bicarbonate infusion. PHYSICAL EXAMINATION: GENERAL: He is a middle-aged man who appears comfortable at rest. VITAL SIGNS: Blood pressure is 130/80 with a pulse of 90 with variable atrial flutter conduction. His respirations are 16. He is currently afebrile. HEENT: No JVD. CHEST: Bilateral scattered rhonchi. HEART: PMI displaced laterally with a systolic murmur at the lower left sternal border. ABDOMEN: Soft and nontender. Large incisional hernia is present. Bowel sounds are normal. EXTREMITIES: No edema. DIAGNOSTIC DATA: Potassium 4, BUN and creatinine 89 and 11.5, bicarbonate is 15. White count 4.7, hemoglobin and hematocrit 10.3 and 32.4 with platelet count of 80,000. IMPRESSION: 1. Paroxysmal atrial flutter, currently with rate control given metoprolol and digoxin. He is unable to anticoagulate because of recent rectal bleeding. 2. 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 3. Coronary disease status post remote percutaneous coronary intervention with a recent stress test showing no evidence of ischemia. 4. [id number] renal failure. 5. History of diabetes, hypertension. 6. History of peripheral vascular disease. 7. History of prior deep venous thrombosis. 8. 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 9. History of urosepsis and neurogenic bladder. RECOMMENDATIONS: Metoprolol 50 mg every 8 hours will be continued for now. If needed, renal dose digoxin can be given at 0.25 mg Friday, Friday and Friday should rate control be suboptimal, placement of a PICC line appears appropriate given his poor peripheral venous access and need for prolonged antibiotics. Dialysis access placement appears necessary. From a cardiac standpoint, he is stable to proceed with these procedures as needed. I will be happy to follow and make further recommendations as appropriate. Jose Willams MD [facility] # [id number]
[2018-12-25 16:10] LABS: HEPATITIS B SURFACE AG Negative (NEGATIVE)
[2018-12-25 16:15] LABS: HEPATITIS B CORE AB NEGATIVE (NEGATIVE)
--- NOTE | 2018-12-25 20:24 | VASCULAR ---
PROCEDURE: Ultrasound and fluoroscopic tunneled right IJ dialysis catheter. CLINICAL HISTORY: ESRD PHYSICIAN(S): Allen Ellington M.D. TECHNIQUE: The relative risks and indications for the procedure were explained to the patient and informed written consent obtained. The patient was placed supine on the arteriography table and the right neck/chest was prepped and draped in the usual sterile fashion. 1% Xylocaine was used to anesthetize the skin and soft tissues at the puncture site. Conscious sedation and monitoring were provided throughout the procedure by a nurse. Under direct ultrasound guidance, the rightinternal jugular vein was punctured with a micropuncture set. A 0.035 Glidewire was advanced into the IVC. Sequential dilatation was performed with subsequent placement of a 28cmNext gen catheter with its tip in the right atrium. A retrograde tunnel below the right clavicle was performed. The catheter was trimmed and the hub attached. Both ports aspirate and inject easily. The catheter was secured and a dressing applied. The patient tolerated the procedure well. IMPRESSION: 1. Ultrasound and fluoroscopically placed right IJ tunneled dialysis catheter.
--- NOTE | 2018-12-25 20:25 | VASCULAR ---
PROCEDURE: Ultrasound and fluoroscopically placed right upper extremity PICC line. HISTORY: Limited IV access. Needs PICC line. PHYSICIAN(S): Allen Ellington MD. TECHNIQUE: The relative risks and indications of the procedure were explained to the patient and consent obtained. The patient was placed supine on the arteriogram table and the right arm prepped and draped in the usual sterile fashion. A tourniquet was applied to the right axilla. 1% Xylocaine was used to anesthetize the skin and soft tissues at the puncture site above the elbow. The right brachial vein was punctured under direct ultrasound guidance with a micropuncture set. A 0.018 guidewire was advanced centrally and used to measure the length to the SVC/RA junction. A 5 Scottish single-lumen PICC line 50 cm long was advanced to the SVC/RA junction. The catheter was flushed and secured. The patient tolerated the procedure well. IMPRESSION: 1. Ultrasound and fluoroscopically placed right upper extremity PICC line. A 5 Scottish single-lumen PICC line 50 cm long was advanced to the SVC/RA junction.
--- NOTE | 2018-12-25 21:41 | PN ---
DATE: 12/25/2018 SUBJECTIVE: The patient is seen in the ICU early today. No fevers or chills. Awake and doing well. PHYSICAL EXAMINATION: VITAL SIGNS: Temperature is 97, blood pressure is 140/80, respiratory rate of 18. HEENT: Unremarkable. NECK: Supple. LUNGS: Have decreased breath sounds. HEART: Normal S1, S2. ABDOMEN: Soft, nontender. LABORATORY DATA: Laboratory examination reveals the patient's white count is 4.7, hemoglobin of 10, platelets of 80. BUN of 89, creatinine of 11.5. Urinalysis is noted. Serology is reviewed. 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 Repeat urine from yesterday is gram-negative rods. Blood cultures are negative at 48 hours. The patient also had C. diff toxin and antigen both negative. The patient is scheduled for vascular procedure today for dialysis. ASSESSMENT AND PLAN: A 68-year-old male with coronary artery disease, chronic kidney disease, recurrent urinary tract infection, right hydronephrosis in the past with stones, peripheral vascular disease, diabetes, colonic fistula, renal disease, coronary artery disease, was admitted with severe sepsis secondary to Morganella morganii in the urine as the source with acute kidney injury on top of chronic kidney injury and rectal bleeding. Currently on meropenem, tolerating the medication well, does have an allergy to ceftriaxone, limited options. We will follow with you. Joe Bergman MD
[2018-12-26 05:57] LABS: BASO # 0.05 K/mm3 (0.0-2.0); BASO % 1.2 % (0.0-3.0); EOS # 0.1 (0.0-0.7); EOS % 1.2 % (1.5-5.0); LYMPH # 0.8 (1.2-3.4); LYMPH % 19.7 % (22.0-35.0); MEAN CELL VOLUME 88.6 fl (80.0-105.0); MEAN CORPUSCULAR HEMOGLOBIN 29.2 pg (25.0-35.0); MEAN PLATELET VOLUME 10.4 fl (7.0-11.0); MONO # 0.5 (0.1-0.6); MONO % 11.1 % (1.0-6.0); RBC 3.42 10^6/uL (3.5-6.1); RED CELL DISTRIBUTION WIDTH 15.4 % (11.5-14.5); WHITE BLOOD COUNT 4.1 10^3/uL (4.5-11.0)
[2018-12-26 06:23] LABS: ALB/GLOB RATIO 0.9 (1.1-1.8); CALCIUM 6.6 mg/dL (8.4-10.5)
[2018-12-26] MEDS: Insulin Lispro (humaLOG) LOW Coverage SC SCH ×4 (07:30→22:02)
[2018-12-26] MEDS: Budesonide 0.5 mg/2 ml Inhal Susp UD IH SCH ×2 (07:43→20:44)
[2018-12-26] MEDS: Arformoterol 15 mcg/2 ml Inh Sol IH SCH ×2 (07:43→20:43)
--- NOTE | 2018-12-26 08:52 | PN ---
DATE: 12/26/2018 SUBJECTIVE: The patient is in bed, in no acute distress. He is awake and alert, nontoxic. PHYSICAL EXAMINATION: VITAL SIGNS: Temperature is 98, blood pressure is 140/60, respiratory of 18, heart rate of 88. HEENT: Unremarkable. NECK: Supple. LUNGS: Have decreased breath. HEART: Normal S1, S2. ABDOMEN: Soft, nontender. LABORATORY DATA: Review of the laboratories reveals the white count is 4.1, BUN of 61, creatinine of 8.7. Urinalysis is noted. Serology is noted. Microbiology reveals Morganella morganii species resistant to ampicillin, resistant to cefazolin, ceftriaxone sensitive, cefepime sensitive, and sensitive to meropenem. ASSESSMENT AND PLAN: This is a 68-year-old with coronary artery disease, chronic kidney disease, recurrent urinary tract infection, right hydronephrosis in the past with stones, peripheral vascular disease, diabetes, colonic fistula, renal disease, coronary artery disease who was admitted on this admission with severe sepsis secondary to Morganella morganii, urine as a source with acute kidney injury on top of chronic kidney injury and rectal bleeding, on meropenem in a patient who is allergic to ceftriaxone, limited options with resistance and today is day #4 of meropenem, would complete 7 to 10 days. Joe Bergman MD
[2018-12-26] MEDS ORDERED: Oxycodone/Acetaminophen 5/325 mg Tab PO PRN (09:20)
[2018-12-26] MEDS: Nystatin 100,000 Units/gm Topical Pow(15 gm) TOP SCH ×2 (10:00→17:55)
--- NOTE | 2018-12-26 12:22 | PN ---
DATE: 12/26/2018 SUBJECTIVE: The patient is awake and alert, comfortable on room air. No complaints of shortness of breath, he is getting a nebulizer treatment at this time. The patient does have a swollen right upper arm, but does not complain of any pain and there is no obvious unusual erythema at this time. Note that the patient does have IV lines and other IV and subclavian on that side. PHYSICAL EXAMINATION: VITAL SIGNS: Temperature is 98.5, pulse is 85, respirations are 16 and BP is 145/65. SKIN: Warm and dry. HEENT: Head atraumatic, normocephalic. Eyes reactive to light. Ear, nose and throat seemed to be within normal limits. NECK: Supple. No JVD. No thyroid enlargement, no lymph nodes. HEART: Has regular rate and rhythm. Normal S1, S2. LUNGS: Reveal good breath sounds bilaterally. ABDOMEN: Soft. Decreased bowel sounds. GENITALIA: Deferred. RECTAL: Deferred. MUSCULOSKELETAL: No joint deformities. EXTREMITIES: Reveal positive lower extremity edema. NEUROLOGIC: He seems to be grossly intact. LABORATORY DATA: Laboratories are concerned, white count is 4.1, hemoglobin is 10.0, hematocrit 30.3 with platelets of 84,000. Sodium is 139, potassium 3.5, chloride 104, CO2 of 25 with a BUN of 61, creatinine of 8.7 and glucose of 92. IMPRESSION: This patient presented with gastrointestinal bleed at this time continues to have anemia and thrombocytopenia. He has coronary artery disease with some sepsis secondary to the urinary tract infection. The patient has a history of chronic kidney disease, diabetes, peripheral vascular disease, colonic fistula, renal failure as well as possible sepsis. PLAN: We will continue with Brovana IV fluids, insulin, Lopressor, meropenem, and Pulmicort. We will continue to treat aggressively and I will continue to observe the right upper arm edema. We will recommend a Doppler of that area. We will continue to treat with other consultants and the primary care doctor. Sanchez Bernard MD
--- NOTE | 2018-12-26 13:17 | PN ---
DATE: 12/26/2018 SUBJECTIVE: The patient is seen lying in bed in the CCU. A PICC line was placed yesterday as well as a dialysis catheter. He remains in atrial flutter with a controlled rate. He is feeling somewhat better. CURRENT MEDICATIONS: Include Brovana, sodium bicarbonate infusion, metoprolol 50 mg every 8 hours, insulin coverage, meropenem, PhosLo, Pulmicort. OBJECTIVE: GENERAL: He is a middle-aged man who appears comfortable at the present time. VITAL SIGNS: Blood pressure 146/66 with pulse of 86 in atrial flutter with variable conduction, respirations are 14. He is afebrile. HEENT: No JVD. CHEST: A few scattered rhonchi heard. HEART: PMI displaced laterally with systolic murmur at the left sternal border. ABDOMEN: Soft, nontender with normoactive bowel sounds. Incisional hernias are noted. EXTREMITIES: Chronic stasis changes with 1+ edema present. DIAGNOSTIC DATA: Potassium 3.5, BUN and creatinine 61 and 8.7. White count 4.1, hemoglobin and hematocrit 10 and 30.3 with platelet count of 84,000. IMPRESSION: 1. Paroxysmal atrial flutter, currently with adequate rate control. Not anticoagulated due to a recent rectal bleeding. 2. 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 3. Gram-negative urosepsis. 4. Coronary artery disease status post remote percutaneous coronary intervention with no evidence of ischemia on his recent nuclear stress test. 5. Chronic renal failure now on hemodialysis. 6. Thrombocytopenia. 7. Rest of problems as noted. RECOMMENDATIONS: His current cardiac medications will be continued for now. If his heart rate falls below 60, metoprolol will be reduced to 50 mg twice daily. From cardiac standpoint, he appears stable for transfer to telemetry. I will continue to follow and make further recommendations as appropriate. Jose Willams MD MTDD
--- NOTE | 2018-12-26 16:11 | PN ---
DATE: 12/26/2018 SUBJECTIVE: A 68-year-old male in the coronary care unit. The patient is status post placement of a PICC line and a PermCath catheter for dialysis. He has received one course of dialysis yesterday. He is scheduled for a second course today. OBJECTIVE: VITAL SIGNS: Nurses state that he had a quiet night. His temperature is reported 98.7, his pulse is 95, blood pressure is 149/51. GENERAL: He is alert and oriented x3. NECK: Supple. LUNGS: Show some diminished breath sounds at the bases. HEART: S1, S2 rhythm. Pacemaker is present. ABDOMEN: Soft. Abdominal hernia is present. EXTREMITIES: Show no evidence of edema in the legs. Right arm is swollen and red. LABORATORY DATA: Shows a WBC of 4.1, RBC 3.42, hemoglobin 10, hematocrit 30, platelet count is 84,000. Chemistry shows a sodium of 139, potassium 3.5, chloride 104, CO2 of 25, BUN is 61, creatinine is 8.7, calcium is 6.6. Random blood sugar is 89. LFTs are normal. Microbiological studies to date show a urine culture growing . He is sensitive to meropenem. MEDICATIONS: At this time, he is being followed by Infectious Disease for urinary tract infection on meropenem. He is also on Brovana for respiratory treatments. He is on IV fluids of D5W. He is on a sliding insulin scale for his [id number] diabetes, Lopressor 50 every 8 hours for his tachycardia, nystatin topical powder for fungal rash. He is going to be placed on Percocet 5/325 every 6 hours p.r.n. for severe pain as he is complaining about some pain over the surgical site from yesterday, Tylenol 2 tablets every 6 hours p.r.n. for moderate pain, he is on PhosLo with meals, Pulmicort for breathing. He continues at this point in time on his bicarb IV fluids. He is also been placed on bicarb tablets, we will review this with renal. ASSESSMENT AND PLAN: 1. Chronic kidney disease with acute renal disease status post dialysis. 2. Urinary tract infection with severe urosepsis. 3. Neurogenic bladder. 4. Right hydronephrosis with renal stones. 5. 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 6. Coronary artery disease with pacemaker. 7. Peripheral vascular disease. Today the clinical findings have been discussed with the consultants and with the patient. We will continue to monitor the patient closely. He is scheduled for dialysis today. Ana Frost MD
--- NOTE | 2018-12-26 17:45 | CP.PCM.PN ---
Subjective - Date & Time of Evaluation Date of Evaluation: 12/26/18 Time of Evaluation: 10:00 - Subjective Subjective: Providing nephrology coverage for Dr. Vail: 68 yo M with pmhx of coronary artery disease, anal fistula, CKD, neurogenic bladder, recurrent UTI's, right hydronephrosis w/ stones, PVD, diabetes, colonic fistula, hernia, and colostomy, admitted with UTI sepsis, initiated on HD yesterday; Seen on HD this morning, second straight session since starting yesterday; denies any dyspnea; tolerating diet; tolerating gentle UF on HD; Objective - Vital Signs/Intake and Output Vital Signs (last 24 hours): Temp Pulse Resp BP Pulse Ox 98.5 F 83 19 98/54 L 91 L 12/24/18 16:00 12/26/18 17:30 12/26/18 17:30 12/26/18 17:25 12/26/18 17:30 Intake and Output: 12/26/18 12/26/18 06:59 18:59 Intake Total 900 Output Total 500 Balance 400 - Medications Medications: Current Medications Acetaminophen (Tylenol 325mg Tab) 650 mg PO Q6H PRN PRN Reason: moderate pain Arformoterol Tartrate (Brovana) 15 mcg IH [id number] [facility] Last Admin: 12/26/18 07:43 Dose: 15 mcg Budesonide (Pulmicort Respules) 0.5 mg IH [id number] [facility] Last Admin: 12/26/18 07:43 Dose: 0.5 mg Calcium Acetate (Phoslo) 667 mg PO WM [facility] Last Admin: 12/26/18 14:08 Dose: 667 mg Dextrose (Dextrose 50% Inj) 0 ml IV STAT PRN; Protocol PRN Reason: Hypoglycemia Protocol Sodium Bicarbonate 75 meq/ (Sodium Chloride) 1,075 mls @ 80 mls/hr IV .[id number] [facility] Last Admin: 12/26/18 06:41 Dose: 80 mls/hr Dextrose (Dextrose 5% In Water 1000 Ml) 1,000 mls @ 0 mls/hr IV .Q0M PRN; Protocol PRN Reason: Hypoglycemia Protocol Meropenem 250 mg/ Sodium (Chloride) 100 mls @ 100 mls/hr IVPB Q12H [facility]; Protocol Stop: 01/01/19 20:31 Last Admin: 12/26/18 08:39 Dose: 100 mls/hr Insulin Human Lispro (Humalog Low) 0 units SC ACHS [facility]; Protocol Last Admin: 12/26/18 07:30 Dose: Not Given Metoprolol Tartrate (Lopressor) 50 mg PO Q8 [facility] Last Admin: 12/26/18 14:15 Dose: 50 mg Nystatin (Nystop Topical Powder) 0 gm TOP BID [facility] Last Admin: 12/25/18 17:58 Dose: 1 applic Oxycodone/Acetaminophen (Percocet 5/325 Mg Tab) 1 tab PO Q6H PRN PRN Reason: severe pain Stop: 12/29/18 09:21 Last Admin: 12/26/18 14:08 Dose: 1 tab Sodium Bicarbonate (Sodium Bicarbonate Tab) 650 mg PO Q6 [facility] Last Admin: 12/26/18 06:20 Dose: 650 mg - Labs Labs: 12/26/18 05:20 12/26/18 05:20 PT 14.8 SECONDS (9.4-12.5) H 12/25/18 11:35 INR 1.31 12/25/18 11:35 APTT 32.0 Seconds (26.9-38.3) 12/25/18 11:35 - Constitutional Appears: Non-toxic, No Acute Distress - Eye Exam Eye Exam: Normal appearance. absent: Scleral icterus - Respiratory Exam Respiratory Exam: Clear to Ausculation Bilateral. absent: Respiratory Distress - Cardiovascular Exam Cardiovascular Exam: RRR, +S1, +S2 - GI/Abdominal Exam GI & Abdominal Exam: Soft. absent: Distended, Tenderness - Neurological Exam Neurological Exam: Alert, Awake - Psychiatric Exam Psychiatric exam: Normal Affect. absent: Agitated - Skin Skin Exam: Warm. absent: Cyanosis Assessment and Plan (1) Acute renal failure Assessment & Plan: MAYELA on CKD V; initiated on HD yesterday via R tunneled IJ catheter; stable volume and electrolyte status; getting 1L UF on HD today; -Next HD for Friday; -Stopping bicarb drip/PO bicarb (will correct with HD); Status: Acute (2) Anemia Assessment & Plan: Hgb currently stable, s/p 1 u prbc two days ago; monitor; Status: Acute (3) Urinary tract infection Assessment & Plan: On meropenem for complicated UTI in the setting of 2.1 cm R kidney calculus; dosed for HD; awaiting urology input regarding possibility of R nephrectomy; Status: Acute
[2018-12-27 06:24] LABS: BASO # 0.03 K/mm3 (0.0-2.0); BASO % 0.7 % (0.0-3.0); EOS # 0.2 (0.0-0.7); EOS % 3.7 % (1.5-5.0); HEMOGLOBIN 10.2 g/dL (14.0-18.0); LYMPH # 0.8 (1.2-3.4); LYMPH % 18.5 % (22.0-35.0); MEAN CELL VOLUME 90.6 fl (80.0-105.0); MEAN CORPUSCULAR HEMOGLOBIN 29.1 pg (25.0-35.0); MEAN CORPUSCULAR HGB CONC 32.2 g/dl (31.0-37.0); MEAN PLATELET VOLUME 9.7 fl (7.0-11.0); MONO # 0.5 (0.1-0.6); MONO % 11.6 % (1.0-6.0); RBC 3.5 10^6/uL (3.5-6.1); RED CELL DISTRIBUTION WIDTH 15.3 % (11.5-14.5); WHITE BLOOD COUNT 4.1 10^3/uL (4.5-11.0)
[2018-12-27 06:50] LABS: ALB/GLOB RATIO 0.8 (1.1-1.8); ALBUMIN 3.1 g/dL (3.0-4.8); CALCIUM 6.6 mg/dL (8.4-10.5)
[2018-12-27] MEDS: Budesonide 0.5 mg/2 ml Inhal Susp UD IH SCH ×2 (07:36→20:24)
[2018-12-27] MEDS: Arformoterol 15 mcg/2 ml Inh Sol IH SCH ×2 (07:36→20:24)
--- NOTE | 2018-12-27 07:51 | PN ---
DATE: 12/27/2018 SUBJECTIVE: The patient is seen lying in bed, in the CCU. He felt somewhat nauseated yesterday. He completed another dialysis session. He remains in atrial fibrillation with a controlled rate. CURRENT MEDICATIONS: Include Brovana, metoprolol 50 mg every 8 hours, meropenem, PhosLo, and Pulmicort inhaler. OBJECTIVE: GENERAL: He is a middle-aged man who appears comfortable at the present time. VITAL SIGNS: Blood pressure 142/60 with pulse of 90 in atrial fibrillation, respirations are 16. He is afebrile.\ HEENT/NECK: No JVD. CHEST: Few scattered rhonchi heard. HEART: PMI displaced laterally with systolic murmur left sternal border. ABDOMEN: Soft with large incisional hernia present. Bowel sounds are present. Abdomen is nontender. EXTREMITIES: Reveal chronic stasis changes with trace edema. DIAGNOSTIC DATA: Blood work is pending. IMPRESSION: 1. Atrial dysrhythmias currently in atrial fibrillation with controlled rate, not anticoagulated due to a recent rectal bleeding. 2. Gram-negative urosepsis, clinically improved. 3. History of bradycardia/tachycardia syndrome status post permanent pacemaker implant. 4. Coronary artery disease, status post remote percutaneous coronary intervention, latest stress test showed no evidence of cardiac ischemia. 5. Chronic renal failure, now on dialysis. 6. Thrombocytopenia, etiology uncertain. RECOMMENDATIONS: His current cardiac medications will be continued for now. From a cardiac standpoint, he is stable for transfer to Telemetry. A Villalba catheter is in place which hopefully can be discontinued soon, reduces risk of hospital acquired infection. I will follow along as needed. Jose Willams MD
[2018-12-27] MEDS: Insulin Lispro (humaLOG) LOW Coverage SC SCH ×4 (09:02→22:00)
--- NOTE | 2018-12-27 09:49 | PN ---
DATE: 12/27/2018 SUBJECTIVE: The patient is in bed, in no acute distress, nontoxic. PHYSICAL EXAMINATION: VITAL SIGNS: Temperature is 98, blood pressure is 140/60, respiratory rate of 18. HEENT: Unremarkable. NECK: Supple. LUNGS: Have decreased breath sounds. HEART: Normal S1, S2. ABDOMEN: Soft, nontender. LABORATORY DATA: White count of 4.1, hemoglobin of 10, platelets of 95. Chemistries reveals a BUN of 41, creatinine of 6.7. Urinalysis is noted and serology is noted. Microbiology reveals Morganella morganii sensitive to meropenem in two separate cultures. Blood cultures are negative, only the urine cultures are positive. Review of orders reveals the patient to have meropenem, this requires renewal which we will do so. ASSESSMENT AND PLAN: This is a 68-year-old male with coronary artery disease, chronic kidney disease, recurrent urinary tract infections, right hydronephrosis in the past with stones, peripheral vascular disease, diabetes, colonic fistula, renal disease, coronary artery disease, admitted with severe sepsis secondary to Morganella morganii in the urine, with acute kidney injury on top of chronic kidney injury and rectal bleeding. Currently on meropenem. We would recommend sterilizing the urine before any cystoscopy. We will repeat the urinalysis and urine cultures to see if it is cleared, currently on meropenem. Joe Bergman MD
--- NOTE | 2018-12-27 10:19 | PN ---
DATE: 12/27/2018 [facility] NOTE SUBJECTIVE: The patient is resting in bed, awake and alert, comfortable on room air. No complaints of shortness of breath, cough, wheezing, or chest congestion. Does have nebulizer treatment available. The patient continues to have this swollen right upper arm but no obvious complaints from it. No erythema or extreme tenderness to touch. Note that there are IV access lines in this area. PHYSICAL EXAMINATION VITAL SIGNS: His temperature is 97.9, pulse is 78, respirations are 14, and BP is 144/64. SKIN: Warm and dry. HEENT: Head atraumatic, normocephalic. Eyes reactive to light. Ear, nose and throat seem to be within normal limits. NECK: Supple. No JVD. No thyroid enlargement. No lymph nodes. CARDIOPULMONARY: Heart has regular rate and rhythm. Normal S1, S2. LUNGS: Reveal good breath sounds bilaterally. ABDOMEN: Soft. Decreased bowel sounds. GENITALIA: Deferred. RECTAL: Deferred. MUSCULOSKELETAL: No joint deformities. EXTREMITIES: Reveal positive edema. NEUROLOGIC: He seemed to be grossly intact. LABORATORY DATA: His white count is 4.1, hemoglobin is 10.2, hematocrit 31.7 with platelets of 95,000. His sodium is 139, potassium 3.7, chloride 100, CO2 of 31 with a BUN of 41, creatinine of 6.7, and a glucose of 101. IMPRESSION: The patient presents with gastrointestinal bleed and anemia as well as thrombocytopenia. He has coronary artery disease and has a urinary tract infection. The patient has a history of chronic kidney disease, diabetes, peripheral vascular disease, colonic fistula, renal failure. PLAN: We will continue with Brovana, also with IV fluids, insulin, Lopressor, meropenem, and Pulmicort. We will continue to treat aggressively along with the other consultants and the primary care doctor. Sanchez Bernard MD
[2018-12-27] MEDS: Nystatin 100,000 Units/gm Topical Pow(15 gm) TOP SCH ×2 (10:37→18:14)
--- NOTE | 2018-12-27 13:18 | PN ---
\DATE: 12/27/2018 SUBJECTIVE: This is a 68-year-old male in the Coronary Care Unit, bed 5. The patient is status post second day of dialysis, status post placement of a PICC line and PermCath catheter for dialysis. OBJECTIVE: GENERAL: He is alert and oriented x3. VITAL SIGNS: His temperature is 98.7, his pulse is 82, his blood pressure is 143/56, respiratory rate is 19, oxygen sat is 91% on room air. LUNGS: Show some diminished breath sounds at the bases. HEART: Regular S1 and S2 rhythm. ABDOMEN: Soft with positive bowel sounds. EXTREMITIES: Show no evidence of edema. LABORATORY DATA: Shows a WBC of 4.1, RBC , hemoglobin 10.2, hematocrit 31.7, platelet count is now 95,000. Chemistries shows sodium of 139, potassium 3.7, chloride 100, the BUN is 41, the creatinine 6.7. Random blood sugar is 94. His calcium is 6.6. LFTs are normal. ASSESSMENT AND PLAN: I have asked the resident to speak with Nephrology regarding the patient's IV fluids and bicarbonate drip. He continues on respiratory treatments as well as on meropenem for urinary tract infection. Urology is reviewing the studies that have been done and make recommendations regarding intervention with a cystoscopy, possible consideration of removal of his right kidney. Surgery is following the patient based upon the fact that there was a possible colovesical fistula, which needs to be defined. GI is following the patient as well because he was having some bloody bowel movements. Continue current level of care at this time. Follow up the patient's labs. Ana Frost MD
--- NOTE | 2018-12-27 16:00 | PCM.URO ---
Urology Progress Note - Objective Lab Studies: Reviewed (will consider cysto stent if medically ok with dr vides and consultants) Lab Results Last 24 Hours: Laboratory Results - last 24 hr 12/26/18 12/26/18 12/27/18 17:08 21:31 05:55 WBC 4.1 L RBC 3.50 Hgb 10.2 L Hct 31.7 L MCV 90.6 MCH 29.1 MCHC 32.2 RDW 15.3 H Plt Count 95 L MPV 9.7 Neut % (Auto) 65.5 Lymph % (Auto) 18.5 L Addison % (Auto) 11.6 H Eos % (Auto) 3.7 Baso % (Auto) 0.7 Lymph # (Auto) 0.8 L Addison # (Auto) 0.5 Eos # (Auto) 0.2 Baso # (Auto) 0.03 Absolute Neuts (auto) 2.66 Sodium Potassium Chloride Carbon Dioxide Anion Gap BUN Creatinine Est GFR ( Amer) Est GFR (Non-Af Amer) POC Glucose (mg/dL) 116 H 116 H Random Glucose Calcium Total Bilirubin AST ALT Alkaline Phosphatase Total Protein Albumin Globulin Albumin/Globulin Ratio 12/27/18 12/27/18 05:55 07:29 WBC RBC Hgb Hct MCV MCH MCHC RDW Plt Count MPV Neut % (Auto) Lymph % (Auto) Addison % (Auto) Eos % (Auto) Baso % (Auto) Lymph # (Auto) Addison # (Auto) Eos # (Auto) Baso # (Auto) Absolute Neuts (auto) Sodium 139 Potassium 3.7 Chloride 100 Carbon Dioxide 31 Anion Gap 11 BUN 41 H Creatinine 6.7 H Est GFR ( Amer) 10 Est GFR (Non-Af Amer) 8 POC Glucose (mg/dL) 94 Random Glucose 101 Calcium 6.6 L* Total Bilirubin 0.3 AST 24 ALT 7 Alkaline Phosphatase 60 Total Protein 7.0 Albumin 3.1 Globulin 3.9 Albumin/Globulin Ratio 0.8 L Intake & Output: Intake & Output 12/26/18 12/27/18 12/27/18 17:59 06:59 18:59 Intake Total Output Total Balance Weight Intake: IV Left Forearm Right Upper arm Oral Output: Urine 2-way Urethral Emesis Other Vital Signs: Vital Signs - 24 hr 12/26/18 12/26/18 12/26/18 15:25 15:30 15:55 Temperature Pulse Rate 89 87 88 Respiratory 16 17 Rate Blood Pressure 117/73 124/83 O2 Sat by Pulse 94 L 96 96 Oximetry 12/26/18 12/26/18 12/26/18 16:00 16:25 16:30 Temperature 97.6 F Pulse Rate 87 84 89 Respiratory 28 H 18 19 Rate Blood Pressure 104/59 L O2 Sat by Pulse 96 92 L 88 L Oximetry 12/26/18 12/26/18 12/26/18 16:55 17:00 17:25 Temperature Pulse Rate 81 79 86 Respiratory 17 11 L Rate Blood Pressure 110/70 98/54 L O2 Sat by Pulse 91 L 95 91 L Oximetry 12/26/18 12/26/18 12/26/18 17:30 17:55 18:00 Temperature 97.9 F Pulse Rate 83 89 77 Respiratory 19 10 L 31 H Rate Blood Pressure 128/52 L O2 Sat by Pulse 91 L 96 95 Oximetry 12/26/18 12/26/18 12/26/18 18:18 18:25 18:30 Temperature Pulse Rate 77 86 91 H Respiratory 12 Rate Blood Pressure 114/64 O2 Sat by Pulse 93 L 100 90 L Oximetry 12/26/18 12/26/18 12/26/18 18:55 19:00 19:26 Temperature Pulse Rate 80 83 87 Respiratory 9 L 15 Rate Blood Pressure 85/60 L 108/70 O2 Sat by Pulse 96 97 95 Oximetry 12/26/18 12/26/18 12/26/18 19:30 19:55 20:00 Temperature Pulse Rate 87 82 79 Respiratory 13 Rate Blood Pressure 139/62 O2 Sat by Pulse 97 97 96 Oximetry 12/26/18 12/26/18 12/26/18 20:26 20:30 20:55 Temperature Pulse Rate 85 79 76 Respiratory 12 11 L Rate Blood Pressure 94/49 L 103/24 L O2 Sat by Pulse 93 L 92 L 96 Oximetry 12/26/18 12/26/18 12/26/18 21:00 21:25 21:30 Temperature Pulse Rate 78 88 80 Respiratory 19 13 Rate Blood Pressure 140/60 O2 Sat by Pulse 95 99 96 Oximetry 12/26/18 12/26/18 12/26/18 21:57 22:00 22:30 Temperature Pulse Rate 73 79 77 Respiratory 21 Rate Blood Pressure O2 Sat by Pulse 92 L 89 L Oximetry 12/26/18 12/26/18 12/26/18 22:39 23:00 23:30 Temperature Pulse Rate 84 87 84 Respiratory 6 L 19 Rate Blood Pressure 160/84 H O2 Sat by Pulse 92 L 98 91 L Oximetry 12/26/18 12/26/18 12/27/18 23:31 23:40 00:00 Temperature Pulse Rate 72 81 73 Respiratory 16 37 H Rate Blood Pressure 135/61 O2 Sat by Pulse 96 82 L Oximetry 12/27/18 12/27/18 12/27/18 00:30 01:00 01:30 Temperature Pulse Rate 79 79 75 Respiratory 18 17 Rate Blood Pressure O2 Sat by Pulse 97 91 L 91 L Oximetry 12/27/18 12/27/18 12/27/18 01:40 03:00 03:30 Temperature Pulse Rate 66 73 82 Respiratory 14 14 24 Rate Blood Pressure 112/80 O2 Sat by Pulse 90 L 95 92 L Oximetry 12/27/18 12/27/18 12/27/18 03:39 04:00 04:05 Temperature Pulse Rate 76 79 87 Respiratory 16 13 Rate Blood Pressure 108/61 142/58 L O2 Sat by Pulse 94 L 95 94 L Oximetry 12/27/18 12/27/18 12/27/18 04:06 04:08 04:09 Temperature Pulse Rate 89 93 H 82 Respiratory 22 19 21 Rate Blood Pressure 162/51 H 125/66 143/56 L O2 Sat by Pulse 86 L 91 L 91 L Oximetry 12/27/18 12/27/18 12/27/18 04:30 05:00 05:05 Temperature Pulse Rate 82 78 89 Respiratory Rate Blood Pressure 142/58 L O2 Sat by Pulse 89 L 94 L Oximetry 12/27/18 12/27/18 12/27/18 05:30 05:48 06:00 Temperature Pulse Rate 83 84 78 Respiratory 14 Rate Blood Pressure 144/64 O2 Sat by Pulse 92 L 94 L 95 Oximetry 12/27/18 08:44 Temperature Pulse Rate 78 Respiratory Rate Blood Pressure O2 Sat by Pulse Oximetry
--- NOTE | 2018-12-27 16:11 | CP.PCM.PN ---
Subjective - Date & Time of Evaluation Date of Evaluation: 12/27/18 Time of Evaluation: 16:07 - Subjective Subjective: Providing nephrology coverage for Dr. Vail: 68 yo M with pmhx of coronary artery disease, anal fistula, CKD, neurogenic bladder, recurrent UTI's, right hydronephrosis w/ stones, PVD, diabetes, colonic fistula, hernia, and colostomy, admitted with UTI sepsis, initiated on HD 2 days ago, 2nd treatment yesterday; Had episode of vomiting earlier today; having wheezing but reports dyspnea improved; got OOB to chair; Objective - Vital Signs/Intake and Output Vital Signs (last 24 hours): Temp Pulse Resp BP Pulse Ox 97.9 F 78 14 144/64 95 12/26/18 18:00 12/27/18 08:44 12/27/18 05:30 12/27/18 05:48 12/27/18 06:00 Intake and Output: 12/27/18 12/27/18 06:59 18:59 Intake Total Output Total Balance - Medications Medications: Current Medications Acetaminophen (Tylenol 325mg Tab) 650 mg PO Q6H PRN PRN Reason: moderate pain Arformoterol Tartrate (Brovana) 15 mcg IH [id number] [facility] Last Admin: 12/27/18 07:36 Dose: 15 mcg Budesonide (Pulmicort Respules) 0.5 mg IH [id number] [facility] Last Admin: 12/27/18 07:36 Dose: 0.5 mg Calcitriol (Rocaltrol) 0.5 mcg PO DAILY [facility] Last Admin: 12/27/18 10:38 Dose: 0.5 mcg Calcium Acetate (Phoslo) 667 mg PO WM [facility] Last Admin: 12/27/18 12:23 Dose: 667 mg Calcium Carbonate (Oscal) 500 mg PO TID [facility] Last Admin: 12/27/18 15:39 Dose: 500 mg Dextrose (Dextrose 50% Inj) 0 ml IV STAT PRN; Protocol PRN Reason: Hypoglycemia Protocol Dextrose (Dextrose 5% In Water 1000 Ml) 1,000 mls @ 0 mls/hr IV .Q0M PRN; Pro tocol PRN Reason: Hypoglycemia Protocol Meropenem 250 mg/ Sodium (Chloride) 100 mls @ 100 mls/hr IVPB Q12H [facility]; Protocol Stop: 01/01/19 20:31 Last Admin: 12/27/18 10:32 Dose: 100 mls/hr Insulin Human Lispro (Humalog Low) 0 units SC ACHS [facility]; Protocol Last Admin: 12/27/18 12:23 Dose: Not Given Metoprolol Tartrate (Lopressor) 50 mg PO Q8 [facility] Last Admin: 12/27/18 15:38 Dose: 50 mg Nystatin (Nystop Topical Powder) 0 gm TOP BID [facility] Last Admin: 12/27/18 10:37 Dose: 1 applic Ondansetron HCl (Zofran Inj) 4 mg IVP Q8H PRN PRN Reason: Nausea/Vomiting Last Admin: 12/27/18 12:23 Dose: 4 mg Oxycodone/Acetaminophen (Percocet 5/325 Mg Tab) 1 tab PO Q6H PRN PRN Reason: severe pain Stop: 12/29/18 09:21 Last Admin: 12/26/18 14:08 Dose: 1 tab - Labs Labs: 12/27/18 05:55 12/27/18 05:55 PT 14.8 SECONDS (9.4-12.5) H 12/25/18 11:35 INR 1.31 12/25/18 11:35 APTT 32.0 Seconds (26.9-38.3) 12/25/18 11:35 - Constitutional Appears: Non-toxic, No Acute Distress - Eye Exam Eye Exam: Normal appearance - Respiratory Exam Respiratory Exam: Prolonged Expiratory Phase, Wheezes. absent: Respiratory Distress - Cardiovascular Exam Cardiovascular Exam: RRR, +S1, +S2 - GI/Abdominal Exam GI & Abdominal Exam: Soft. absent: Distended, Tenderness - Extremities Exam Additional comments: no leg edema; - Neurological Exam Neurological Exam: Alert, Awake - Psychiatric Exam Psychiatric exam: Normal Affect, Normal Mood. absent: Agitated - Skin Skin Exam: Warm. absent: Cyanosis Assessment and Plan (1) Acute renal failure Assessment & Plan: MAYELA on CKD V; had already been in preparation for starting chronic HD; stable volume status; hypocalcemia noted, otherwise stable lytes; -no need for further bicarb supplementation; -avoid unnecessary nephrotoxic agents to preserve residual renal function; -next HD for tomorrow; Status: Acute (2) Anemia Assessment & Plan: Hgb stable; monitor; Status: Acute (3) Urinary tract infection Assessment & Plan: On meropenem for complicated UTI with large R renal calculus; f/u with urology regarding possible cysto/stent, eventual nephrectomy; Status: Acute (4) Chronic kidney disease-mineral and bone disorder Assessment & Plan: With hypocalcemia; PTH sent; starting calcitriol 0.5 mcg daily and calcium carbonate 500 mg tid; avoid giving IV calcium to prevent vascular calcifications; Status: Acute
--- NOTE | 2018-12-28 01:40 | PN ---
DATE: 12/27/2018 SUBJECTIVE: Please see previous notes on 12/24/2018, 12/25/2018. He is currently in the ICU. He has recently had a dialysis catheter. The medical notes were also listed on the chart. I had a chance to speak with Dr. Ana Frost. From Urology standpoint, he is with stone disease. An infection. Renal failure. No other major changes. PLAN: From Urology standpoint, we would recommend a cystoscopy and a stent insertion at some point. We can discuss the timing with the Infectious Disease. The other possibility for percutaneous nephrostomy tube drainage and the other possibility for nephrectomy altogether. I think the patient can tolerate such. These are all considerations. For now, no intervention. We are going to just observe the patient and fallow along with you. Then, further plans will follow. Benny Villavicencio MD
[2018-12-28 07:03] LABS: BASO # 0.01 K/mm3 (0.0-2.0); BASO % 0.3 % (0.0-3.0); EOS # 0.2 (0.0-0.7); EOS % 4.6 % (1.5-5.0); HEMOGLOBIN 10.6 g/dL (14.0-18.0); LYMPH # 0.8 (1.2-3.4); MEAN CELL VOLUME 91.1 fl (80.0-105.0); MEAN CORPUSCULAR HEMOGLOBIN 28.7 pg (25.0-35.0); MEAN CORPUSCULAR HGB CONC 31.5 g/dl (31.0-37.0); MEAN PLATELET VOLUME 9.9 fl (7.0-11.0); MONO # 0.5 (0.1-0.6); MONO % 13.3 % (1.0-6.0); RBC 3.69 10^6/uL (3.5-6.1); RED CELL DISTRIBUTION WIDTH 15.2 % (11.5-14.5); WHITE BLOOD COUNT 3.7 10^3/uL (4.5-11.0)
[2018-12-28 07:23] LABS: ALB/GLOB RATIO 0.8 (1.1-1.8); ALBUMIN 3.2 g/dL (3.0-4.8); CALCIUM 6.9 mg/dL (8.4-10.5)
[2018-12-28] MEDS: Budesonide 0.5 mg/2 ml Inhal Susp UD IH SCH ×2 (07:44→19:35)
[2018-12-28] MEDS: Arformoterol 15 mcg/2 ml Inh Sol IH SCH ×2 (07:44→19:35)
[2018-12-28] MEDS: Insulin Lispro (humaLOG) LOW Coverage SC SCH ×3 (08:52→21:26)
[2018-12-28] MEDS: Nystatin 100,000 Units/gm Topical Pow(15 gm) TOP SCH ×2 (09:07→17:42)
--- NOTE | 2018-12-28 09:44 | PN ---
DATE: 12/28/2018 SUBJECTIVE: The patient is seen lying in bed in the CCU. He is feeling better. His nausea has resolved. He is scheduled for dialysis again later today. Decision has not been made yet regarding his urologic management plans. OBJECTIVE PHYSICAL EXAMINATION GENERAL: He is a middle-aged man who is comfortable at the present time. VITAL SIGNS: Blood pressure is 160/64 with a pulse of 88 in atrial fibrillation, respirations are 16. He is afebrile. HEENT: No JVD or bruits. CARDIOPULMONARY: Heart; PMI displaced laterally with systolic murmur present at the left sternal border. LUNGS: Bilateral scattered rhonchi. ABDOMEN: Soft. Bowel sounds are present. The abdomen is nontender. A large incisional hernia is present. EXTREMITIES: Chronic stasis changes. LABORATORY DATA: The potassium is 4.0, BUN and creatinine 55 and 7.5. White count 3.7, hemoglobin and hematocrit 10.6 and 33.6 with platelet count of 128,000. CURRENT MEDICATIONS: Include Brovana, metoprolol 50 mg every 8 hours, meropenem, PhosLo, Pulmicort inhaler. IMPRESSION 1. Atrial fibrillation with controlled rate at the present time, not currently anticoagulated due to recent rectal bleeding. 2. Gram-negative urosepsis appears improved. 3. 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 4. Coronary artery disease status post remote percutaneous coronary intervention with a recent stress test showing no evidence of ischemia. 5. Thrombocytopenia, improving. 6. Chronic renal failure, now on hemodialysis. RECOMMENDATIONS: His current medications should continue for now. An eventual decision regarding chronic anticoagulant therapy will need to be made after his GI issues have been addressed. He is stable for transfer to a telemetry bed at this time. We will be happy to follow along as needed. Jose Willams MD
--- NOTE | 2018-12-28 12:04 | CP.PCM.PN ---
<Dung Castorena - Last Filed: 12/28/18 13:19> Subjective - Date & Time of Evaluation Date of Evaluation: 12/28/18 Time of Evaluation: 07:00 - Subjective Subjective: Dung Castorena PGY1 ICU progress note for Dr Rausch Pt seen and examined this morning. Pt is receiving HD today. Pt to be transferred to med surg. Objective - Vital Signs/Intake and Output Vital Signs (last 24 hours): Temp Pulse Resp BP Pulse Ox 97.7 F 88 20 159/64 H 91 L 12/28/18 04:00 12/28/18 06:22 12/28/18 05:45 12/28/18 04:48 12/28/18 05:45 Intake and Output: 12/28/18 12/28/18 06:59 18:59 Intake Total 350 Output Total 450 Balance -100 - Medications Medications: Current Medications Acetaminophen (Tylenol 325mg Tab) 650 mg PO Q6H PRN PRN Reason: moderate pain Arformoterol Tartrate (Brovana) 15 mcg IH [id number] [facility] Last Admin: 12/28/18 07:44 Dose: 15 mcg Budesonide (Pulmicort Respules) 0.5 mg IH [id number] [facility] Last Admin: 12/28/18 07:44 Dose: 0.5 mg Calcitriol (Rocaltrol) 0.5 mcg PO DAILY [facility] Last Admin: 12/28/18 09:03 Dose: 0.5 mcg Calcium Acetate (Phoslo) 667 mg PO WM [facility] Last Admin: 12/28/18 09:03 Dose: 667 mg Calcium Carbonate (Oscal) 500 mg PO TID [facility] Last Admin: 12/28/18 09:04 Dose: 500 mg Dextrose (Dextrose 50% Inj) 0 ml IV STAT PRN; Protocol PRN Reason: Hypoglycemia Protocol Dextrose (Dextrose 5% In Water 1000 Ml) 1,000 mls @ 0 mls/hr IV .Q0M PRN; Protocol PRN Reason: Hypoglycemia Protocol Meropenem 250 mg/ Sodium (Chloride) 100 mls @ 100 mls/hr IVPB Q12H [facility]; Protocol Stop: 01/01/19 20:31 Last Admin: 12/28/18 08:57 Dose: 100 mls/hr Insulin Human Lispro (Humalog Low) 0 units SC ACHS [facility]; Protocol Last Admin: 12/28/18 08:52 Dose: Not Given Metoprolol Tartrate (Lopressor) 50 mg PO Q8 [facility] Last Admin: 12/28/18 06:22 Dose: 50 mg Nystatin (Nystop Topical Powder) 0 gm TOP BID [facility] Last Admin: 12/28/18 09:07 Dose: 1 applic Ondansetron HCl (Zofran Inj) 4 mg IVP Q8H PRN PRN Reason: Nausea/Vomiting Last Admin: 12/27/18 12:23 Dose: 4 mg Oxycodone/Acetaminophen (Percocet 5/325 Mg Tab) 1 tab PO Q6H PRN PRN Reason: severe pain Stop: 12/29/18 09:21 Last Admin: 12/26/18 14:08 Dose: 1 tab - Labs Labs: 12/28/18 06:30 12/28/18 06:30 PT 14.8 SECONDS (9.4-12.5) H 12/25/18 11:35 INR 1.31 12/25/18 11:35 APTT 32.0 Seconds (26.9-38.3) 12/25/18 11:35 - Constitutional Appears: No Acute Distress - Head Exam Head Exam: ATRAUMATIC, NORMOCEPHALIC - Eye Exam Eye Exam: EOMI - ENT Exam ENT Exam: Mucous Membranes Moist - Neck Exam Neck Exam: Full ROM - Respiratory Exam Respiratory Exam: NORMAL BREATHING PATTERN. absent: Accessory Muscle Use, Respiratory Distress - Cardiovascular Exam Cardiovascular Exam: RRR, +S1, +S2. absent: Diastolic murmur, Murmur - GI/Abdominal Exam GI & Abdominal Exam: Soft, Normal Bowel Sounds - Extremities Exam Extremities Exam: Full ROM - Psychiatric Exam Psychiatric exam: Normal Affect, Normal Mood - Skin Skin Exam: Dry, Intact, Warm Assessment and Plan - Assessment and Plan (Free Text) Assessment: Pt is a 68yo male with a PMH of CAD, CKD, UTI, neurogenic bladder, PVD, DM, colostomy, anal/colonic fistula who presented to the emergency department complaining of rectal bleeding. Pt was admitted to the ICu, pt is now stabilized and may be transferred to med surg. Plan: Neuro - AOx3 Cadio - Maintain MAP >65 - metoprolol tartrate 50 q8 - Cardio following Pulm: - Maintain O2 sat >92 - brovana, pulmicort GI: - BRBPR - C. Diff negative - GI Consulted, following Heme - Pt was transfused 1 unit pRBC 11/26/18 - H/H stable at this time Nephro/ - MAYELA on CKD - IVF - Nephro following - Urology, considering cysto and possible stent ID - continue merropenum per ID Endo: - Maintain euglycemia Dispo: pt to be transferred to Tele Pt seen, examined, assessment and plan discussed with Dr Shalom Castorena PGY1 <Dewey Rausch - Last Filed: 12/28/18 18:00> Objective - Vital Signs/Intake and Output Vital Signs (last 24 hours): Temp Pulse Resp BP Pulse Ox 97.7 F 64 20 159/64 H 91 L 12/28/18 04:00 12/28/18 14:23 12/28/18 05:45 12/28/18 04:48 12/28/18 05:45 Intake and Output: 12/28/18 12/28/18 06:59 18:59 Intake Total 350 Output Total 450 Balance -100 - Medications Medications: Current Medications Acetaminophen (Tylenol 325mg Tab) 650 mg PO Q6H PRN PRN Reason: moderate pain Arformoterol Tartrate (Brovana) 15 mcg IH [id number] [facility] Last Admin: 12/28/18 07:44 Dose: 15 mcg Budesonide (Pulmicort Respules) 0.5 mg IH [id number] [facility] Last Admin: 12/28/18 07:44 Dose: 0.5 mg Calcitriol (Rocaltrol) 0.5 mcg PO DAILY [facility] Last Admin: 12/28/18 09:03 Dose: 0.5 mcg Calcium Acetate (Phoslo) 667 mg PO WM [facility] Last Admin: 12/28/18 17:42 Dose: 667 mg Calcium Carbonate (Oscal) 500 mg PO TID [facility] Last Admin: 12/28/18 17:42 Dose: 500 mg Dextrose (Dextrose 50% Inj) 0 ml IV STAT PRN; Protocol PRN Reason: Hypoglycemia Protocol Dextrose (Dextrose 5% In Water 1000 Ml) 1,000 mls @ 0 mls/hr IV .Q0M PRN; Protocol PRN Reason: Hypoglycemia Protocol Meropenem 250 mg/ Sodium (Chloride) 100 mls @ 100 mls/hr IVPB Q12H [facility]; Protocol Stop: 01/01/19 20:31 Last Admin: 12/28/18 08:57 Dose: 100 mls/hr Insulin Human Lispro (Humalog Low) 0 units SC ACHS [facility]; Protocol Last Admin: 12/28/18 17:27 Dose: Not Given Metoprolol Tartrate (Lopressor) 50 mg PO Q8 [facility] Last Admin: 12/28/18 14:23 Dose: 50 mg Nystatin (Nystop Topical Powder) 0 gm TOP BID [facility] Last Admin: 12/28/18 17:42 Dose: 1 applic Ondansetron HCl (Zofran Inj) 4 mg IVP Q8H PRN PRN Reason: Nausea/Vomiting Last Admin: 12/27/18 12:23 Dose: 4 mg Oxycodone/Acetaminophen (Percocet 5/325 Mg Tab) 1 tab PO Q6H PRN PRN Reason: severe pain Stop: 12/29/18 09:21 Last Admin: 12/26/18 14:08 Dose: 1 tab - Labs Labs: 12/28/18 06:30 12/28/18 06:30 PT 14.8 SECONDS (9.4-12.5) H 12/25/18 11:35 INR 1.31 12/25/18 11:35 APTT 32.0 Seconds (26.9-38.3) 12/25/18 11:35 Attending/Attestation - Attestation I have personally seen and examined this patient.: Yes I have fully participated in the care of the patient.: Yes I have reviewed all pertinent clinical information, including history, physical exam and plan: Yes Notes (Text): 12/28/18 17:59 68 with BRBPR now resolved, Hb stable, hemodynamically stable. ok to downgrade to tele
--- NOTE | 2018-12-28 20:21 | PN ---
DATE: 12/28/2018 SUBJECTIVE: The patient is seen in the ICU. He is lying in bed. He is receiving dialysis. He complains of some fatigue. He denies any pain. He also complains of some cough. PHYSICAL EXAMINATION GENERAL: Elderly male lying in bed. VITAL SIGNS: Blood pressure 159/64, heart rate 64, respiratory rate 20, temperature 97.7. HEENT: Normocephalic, atraumatic, positive pallor. NECK: Supple, no JVD. LUNGS: Bilateral equal air entry, bilateral rhonchi. CARDIOPULMONARY: S1, S2, regular rate and rhythm, no murmur, no rub. ABDOMEN: Distended, soft, nontender, bowel sounds present. EXTREMITIES: No lower extremity edema. LABORATORY DATA: WBC 3.7, hemoglobin 10.6, hematocrit 34, platelets 128. Sodium 41, potassium 4.0, chloride 102, CO2 of 30, BUN 55, creatinine 7.9, glucose 89, calcium 6.9. Phosphorus 5.7. Urine culture, Morganella morganii. CURRENT MEDICATIONS: Brovana, Lopressor, insulin, meropenem 250 mg every 12 hours, Os-Thai, PhosLo, calcitriol, Tylenol, Zofran. ASSESSMENT AND PLAN 1. Acute kidney injury superimposed on chronic kidney disease stage V, now end-stage renal disease. 2. Recurrent urosepsis in the setting of staghorn calculus, nonfunctioning hydronephrotic kidney? 3. Noninsulin-dependent diabetes mellitus. 4. Severe hypocalcemia. 5. Anemia of chronic kidney disease. 1. Check intact parathyroid hormone. 2. Check phosphorus. 3. Continue PhosLo. 4. Continue calcitriol daily. 5. Continue antibiotics as per Infectious Disease recommendation. 6. Agree with plan for possible nephrectomy. Ana Ochoa MD
[2018-12-28 20:41] LABS: URINE BILIRUBIN NEGATIVE (NEGATIVE); URINE BLOOD MODERATE (NEGATIVE); URINE GLUCOSE (UA) 100 mg/dL (NEGATIVE); URINE LEUKOCYTE ESTERASE MODERATE Leu/uL (NEGATIVE); URINE PROTEIN >=300 mg/dL (<30 mg/dL); URINE UROBILINOGEN 0.2 E.U./dL (<1 E.U./dL)
[2018-12-28 20:42] LABS: URINE APPEARANCE CLOUDY (CLEAR); URINE COLOR YELLOW (YELLOW)
[2018-12-28 21:23] LABS: URINE WBC TNTC /hpf (0-6)
[2018-12-28 21:24] LABS: URINE BACTERIA MANY /hpf; URINE EPITHELIAL CELLS 0 - 2 /hpf (0-5)
--- NOTE | 2018-12-28 22:07 | PN ---
DATE: 12/28/2018 SUBJECTIVE: The patient is in bed, in no acute distress, nontoxic. The patient was seen earlier this morning in the ICU 129, bed 5. PHYSICAL EXAMINATION: VITAL SIGNS: Temperature is 98. Blood pressure is noted. HEENT: Unremarkable. NECK: Supple. LUNGS: Decreased breath sounds. HEART: Normal S1 and S2. ABDOMEN: Soft, nontender. Dr. Frost' note from yesterday is reviewed. ASSESSMENT AND PLAN: A 68-year-old male with coronary artery disease, chronic kidney disease, recurrent urinary tract infection, right hydronephrosis, kidney stones, peripheral arterial disease, diabetes and colonic fistula, who was admitted with severe sepsis with Morganella morganii in the urine with acute kidney injury on top of chronic kidney injury, rectal bleeding with pyelonephritis. We will continue treatment with meropenem. The patient will need 10-14 days of meropenem. The patient did have a CAT scan of the abdomen and pelvis, which reveals pyelonephritis. Today is day #6 of 10-14 days of meropenem. Joe Bergman MD
--- NOTE | 2018-12-28 22:09 | PN ---
DATE: 12/28/2018 SUBJECTIVE: A 68-year-old male in the coronary care unit. Nursing staff relates that there were no particular problems during the night. OBJECTIVE: VITAL SIGNS: His temperature is 98.7, his pulse is 64, his oxygen saturation is reported at 88%, and his blood pressure is reported at 159/64. GENERAL: He is alert and oriented x3. NECK: Supple. LUNGS: Show rhonchi at the bases. HEART: S1 and S2 rhythm. ABDOMEN: Soft with positive bowel sounds. EXTREMITIES: Show no evidence of edema. LABORATORY DATA: Shows a WBC of 3.7, RBC 3.69, hemoglobin 10.6, hematocrit 33.6, and platelet count is 128. His chemistry shows a sodium of 141, potassium of 4, chloride of 102, BUN is 55, and creatinine is 7.5. His calcium is 6.9. His random blood sugar is 89. His LFTs are normal. ASSESSMENT AND PLAN: The patient currently is scheduled for dialysis today. He is status post placement of a PermCath and a peripherally inserted central catheter line. He is on a sliding insulin scale for his diabetes with fingerstick monitoring. He is on breathing treatments. He is on Lopressor 50 mg every 8 hours. He is on PhosLo, and Os-Thai, also being followed by Infectious Disease for urinary tract infection with urosepsis and continues his meropenem at this time. We will continue current level of care at this time. Input from the individual consultants is greatly appreciated. Case has been discussed with the consultants and with the patient and with the boat builder and repairer and nursing staff. Ana Frost MD
[2018-12-29 06:15] LABS: BASO # 0.01 K/mm3 (0.0-2.0); BASO % 0.3 % (0.0-3.0); EOS # 0.2 (0.0-0.7); EOS % 4.3 % (1.5-5.0); HEMOGLOBIN 10.2 g/dL (14.0-18.0); LYMPH # 0.7 (1.2-3.4); LYMPH % 18.7 % (22.0-35.0); MEAN CELL VOLUME 92.4 fl (80.0-105.0); MEAN CORPUSCULAR HEMOGLOBIN 28.8 pg (25.0-35.0); MEAN CORPUSCULAR HGB CONC 31.2 g/dl (31.0-37.0); MEAN PLATELET VOLUME 9.4 fl (7.0-11.0); MONO # 0.7 (0.1-0.6); MONO % 18.7 % (1.0-6.0); RBC 3.54 10^6/uL (3.5-6.1); RED CELL DISTRIBUTION WIDTH 14.9 % (11.5-14.5); WHITE BLOOD COUNT 3.9 10^3/uL (4.5-11.0)
[2018-12-29 06:39] LABS: ALB/GLOB RATIO 0.8 (1.1-1.8); ALBUMIN 3.2 g/dL (3.0-4.8); CALCIUM 7.7 mg/dL (8.4-10.5)
[2018-12-29] MEDS: Insulin Lispro (humaLOG) LOW Coverage SC SCH ×4 (08:09→21:51)
[2018-12-29] MEDS: Arformoterol 15 mcg/2 ml Inh Sol IH SCH ×2 (08:33→19:27)
[2018-12-29] MEDS: Budesonide 0.5 mg/2 ml Inhal Susp UD IH SCH ×2 (08:34→19:27)
--- NOTE | 2018-12-29 09:52 | PN ---
DATE: 12/29/2018 SUBJECTIVE: The patient is seen lying in bed on telemetry, he is currently comfortable. He remains in atrial fibrillation with controlled rate. He was transferred to telemetry yesterday. MEDICATIONS: His current medications include Brovana, metoprolol 50 mg every 8 hours, meropenem, Os-Thai, PhosLo, Pulmicort inhaler. OBJECTIVE: GENERAL: He is a middle-aged man who appears comfortable at rest. VITAL SIGNS: Blood pressure is 106/60 with a pulse of 80 in atrial fibrillation, respirations of 14. He is afebrile. HEENT: No JVD. CHEST: Few scattered rhonchi heard. HEART: PMI displaced laterally with systolic murmur present at the left sternal border. Rhythm is irregularly irregular. ABDOMEN: Soft and nontender with normoactive bowel sounds. A large incisional hernia is present. EXTREMITIES: Chronic stasis changes. DIAGNOSTIC DATA: Morning blood work is pending. IMPRESSION: 1. Atrial fibrillation with controlled rate, not currently anticoagulated due to recent rectal bleeding. 2. Gram-negative urosepsis, clinically improved. 3. Status post permanent pacemaker implanted for bradycardia tachycardia syndrome. 4. Coronary disease, status post status post remote percutaneous coronary intervention, recent stress test showing no evidence ischemia. 5. Thrombocytopenia, improved. 6. Chronic renal failure, now on hemodialysis. RECOMMENDATIONS: His current medications will be continued for now. A decision will need to be made regarding initiation of anticoagulant therapy to reduce his thromboembolic risk once this is felt to be safe from a GI perspective. We will await decision regarding management of his genitourinary issues. I will follow along as needed. Jose Willams MD
[2018-12-29] MEDS: Nystatin 100,000 Units/gm Topical Pow(15 gm) TOP SCH ×2 (10:39→18:40)
--- NOTE | 2018-12-29 10:59 | PN ---
DATE: 12/29/2018 SUBJECTIVE: A 68-year-old male on the telemetry unit. The patient is status post dialysis yesterday. The nursing staff relates that there were no particular problems during the night. PHYSICAL EXAMINATION: VITAL SIGNS: His temperature is 98.6. His pulse is 83, blood pressure is 106/59, respiratory rate is 18. GENERAL: He is alert and oriented x3. NECK: Supple. LUNGS: Diminished breath sounds at the bases. HEART: Irregular S1, S2 rhythm, has a pacemaker in place. ABDOMEN: Obese, soft, nontender. There is an abdominal wall hernia present. EXTREMITIES: No evidence of edema. LABORATORY DATA: WBC is 3.9, RBC is 3.54, hemoglobin is 10.2, hematocrit is 32.7, platelet count is 133. Chemistry shows a sodium of 140, potassium 4.3, chloride 101, CO2 of 31. The BUN is 43, the creatinine is 6.2. His calcium is 7.7. LFTs are normal. MEDICATIONS: The patient is currently on Brovana, sliding insulin scale, Lopressor, meropenem, nystatin topical powder, Os-Thai, Percocet p.r.n., PhosLo, budesonide, Rocaltrol, Tylenol, and Zofran. ASSESSMENT AND PLAN: 1. The patient is receiving IV antibiotics for urosepsis picture. 2. Recommendation is to have a cystoscopy upon clearance of his urinary tract infection. 3. Also, the patient presented with rectal bleeding and needs for GI evaluation will have to be performed. At the same time, it has been discussed need to consider management of his right kidney which has the renal stones and etiology as to the recurrent urinary tract infections. 4. He also has evidence of bladder wall thickening, which needs to be addressed. All these clinical findings have been discussed with the individual consultants and with the patient. We will continue current level of care and closely monitor this patient. Ana Frost MD
--- NOTE | 2018-12-29 17:43 | PN ---
DATE: 12/29/2018 SUBJECTIVE: The patient is currently seen in 2R. He is lying comfortable in bed. He is continuing on IV antibiotic therapy for his urinary tract infection. He is tolerating the initiation of dialysis without difficulty. The patient is agreeable to go to outpatient hemodialysis at [facility] in [place] upon discharge from the hospital. MEDICATIONS: Medication list reviewed. The patient is on Brovana, sliding scale insulin, Lopressor, Nystatin, Os-Thai, PhosLo, Pulmicort, Rocaltrol, Tylenol, Zofran, and meropenem. PHYSICAL EXAMINATION: INTAKE/OUTPUT: Intake is 720 and 920 of urine and 500 mL with dialysis. VITAL SIGNS: Blood pressure 131/78, pulse of 79, temperature 98.6, respiratory rate of 18. HEENT: Shows him to be normocephalic, atraumatic. Conjunctivae are pink. Sclerae nonicteric. NECK: Supple. No neck vein distention. CHEST: Positive right chest wall PermCath. LUNGS: Clear to auscultation and percussion. No rales, rhonchi or wheezing. CARDIOVASCULAR: Shows an irregular S1, S2 with a soft systolic murmur left lower sternal border. No S3, no S4, no rub. The patient has a permanent pacemaker. ABDOMEN: Soft. Bowel sounds normal. No rebound, guarding or masses. He does have a large nonreducible left lower quadrant abdominal wall hernia. EXTREMITIES: Show no lower extremity cyanosis, clubbing or edema. The patient has a PICC line in his right upper extremity. LABORATORY DATA AND IMAGING: CBC, white blood cell count today 3.9, hemoglobin 10.2 with a platelet count of 133,000. Chemistry showed normal electrolytes. BUN of 43 with a creatinine of 6.2. Glucose 92. Calcium is 7.7, corrected calcium is 8.4 with an albumin of 3.2. Last phosphorus level was 4. Microbiology, urines are positive for Morganella morganii. Stool for C. Diff was negative. Blood cultures are negative at 5 days. ASSESSMENT: 1. Acute renal failure superimposed on chronic kidney disease stage V, now the patient likely has progression to end-stage renal disease. With the initiation of dialysis, he is not hyperkalemic. His metabolic acidosis has resolved with dialysis treatments. The patient continues to make urine. He only has 500 mL of volume removed with each dialysis treatment. The patient at some future point in time needs to have an arteriovenous fistula created by Dr. Morales, this is currently on hold because of his urinary tract infection. He should wait until he is infection free. 2. Status post severe metabolic acidosis, status post sodium bicarbonate both IV and p.o. now corrected with hemodialysis. 3. History of hypertension. The patient remains on low-dose beta-gino therapy. Blood pressure is controlled. 4. History of tachycardia with atrial fibrillation. The patient had been on chronic anticoagulation in the outpatient setting. He is currently off anticoagulation. He does have a permanent pacemaker, he does have a mild valvular heart disease with a history of arteriosclerotic heart disease. 5. History of non-insulin dependent diabetes mellitus. The patient remains on sliding scale insulin. He is off all oral medications for diabetes in the outpatient setting. 6. History of secondary hyperparathyroidism secondary to chronic kidney disease. The patient remains on binder therapy. His last phosphorus level was improved at 4. 7. Mild hypocalcemia, this is corrected with vitamin D and calcium supplements. 8. Urinary tract infection with Morganella morganii in the setting of likely an infected large right staghorn renal calculus with infected stone fragments. I have read Dr. Villavicencio's note. I would be in favor of complete removal of the right kidney rather than placing a nephrostomy tube. The patient should be able to tolerate the procedure well now that he is on dialysis. 9. History of peripheral vascular disease status post multiple lower extremity foot surgeries. 10. History of paraspinal abscess with history of diverticulosis, history of colectomy with colostomy, history of reversal of colostomy, all appeared to be stable. The patient is left with a large nonreducible left lower quadrant abdominal wall hernia and there are no plans for surgery for this. 11. History of anemia secondary to chronic kidney disease. The patient will continue receiving erythropoietin/Aranesp with dialysis. The patient did have limited gastrointestinal bleeding on admission. PLAN: 1. The patient is entirely stable from a renal standpoint. He is tolerating dialysis well. Once he is infection free, he will need to have an AV fistula placed. 2. Complete a full course of antibiotic therapy for his urinary tract infection. 3. I would favor a complete right-sided nephrectomy now that the patient is on dialysis to prevent further urinary tract infections. 4. Discussed with Dr. Frost. 5. Discussed with the patient. 6. Patient's next hemodialysis treatment can be tomorrow. Bryan Vail MD
--- NOTE | 2018-12-30 00:54 | PN ---
DATE: 12/29/2018 SUBJECTIVE: The patient seen earlier this morning in 263, bed 2. PHYSICAL EXAMINATION VITAL SIGNS: Temperature is 97, blood pressure is 130/80, respiratory rate of 20, and heart rate of 74. HEENT: Unremarkable. NECK: Supple. LUNGS: Have decreased breath sounds. HEART: Normal S1 and S2. ABDOMEN: Soft. LABORATORY DATA: Reveals a white count of 3.9, hemoglobin of 10, and platelets of 133. BUN of 43 and creatinine of 6.2. ASSESSMENT AND PLAN: This is a 68-year-old male with coronary artery disease, chronic kidney disease with current urinary tract infection, right hydronephrosis, kidney stones and peripheral arterial disease, diabetes, and colonic fistula, admitted with severe sepsis with Morganella morganii in the urine, acute kidney injury on top of chronic kidney injury and rectal bleeding, and pyelonephritis. Today is day #7 of 10 to 14 days of meropenem. We will follow along with you. Review of orders reveals the meropenem to be active. Joe Bergman MD
[2018-12-30] MEDS: Insulin Lispro (humaLOG) LOW Coverage SC SCH ×3 (07:30→22:16)
[2018-12-30] MEDS: Budesonide 0.5 mg/2 ml Inhal Susp UD IH SCH ×2 (07:52→19:40)
[2018-12-30] MEDS: Arformoterol 15 mcg/2 ml Inh Sol IH SCH ×2 (07:52→19:40)
[2018-12-30] MEDS: Nystatin 100,000 Units/gm Topical Pow(15 gm) TOP SCH ×2 (10:40→18:38)
[2018-12-30 13:38] LABS: BASO # 0.02 K/mm3 (0.0-2.0); BASO % 0.4 % (0.0-3.0); EOS # 0.1 (0.0-0.7); EOS % 3.1 % (1.5-5.0); HEMOGLOBIN 9.9 g/dL (14.0-18.0); LYMPH # 0.6 (1.2-3.4); LYMPH % 12.5 % (22.0-35.0); MEAN CELL VOLUME 92.8 fl (80.0-105.0); MEAN CORPUSCULAR HEMOGLOBIN 29.6 pg (25.0-35.0); MEAN CORPUSCULAR HGB CONC 31.8 g/dl (31.0-37.0); MEAN PLATELET VOLUME 9.7 fl (7.0-11.0); MONO # 0.7 (0.1-0.6); MONO % 15.4 % (1.0-6.0); RBC 3.35 10^6/uL (3.5-6.1); RED CELL DISTRIBUTION WIDTH 14.6 % (11.5-14.5); WHITE BLOOD COUNT 4.6 10^3/uL (4.5-11.0)
--- NOTE | 2018-12-30 13:44 | PN ---
DATE: 12/30/2018 SUBJECTIVE: A 68-year-old male on telemetry. The patient is feeling a bit better this morning. Nursing staff relates that there were no particular problems. The patient is scheduled for dialysis today. PHYSICAL EXAMINATION VITAL SIGNS: His temperature is 97.8, his pulse is 73 and, his blood pressure is 111/55. GENERAL: He is alert and oriented x3. NECK: Supple. No JVD. LUNGS: Show diminished breath sounds at the bases. HEART: Irregular S1 and S2 rhythm. ABDOMEN: Soft with positive bowel sounds. He has a hernia. EXTREMITIES: Show no evidence of edema. LABORATORY DATA: A urine culture dated 12/28/2018 shows no growth. Laboratory data predialysis is pending. CURRENT MEDICATIONS: Consist of Brovana, sliding insulin scale, Lopressor, meropenem, nystatin, Os-Thai, PhosLo, Pulmicort, calcitriol, Dilantin, and Zofran p.r.n. ASSESSMENT: 1. The patient is receiving IV antibiotics for urosepsis. 2. History of right hydronephrosis with renal stones. 3. History of possible colovesical fistula to be determined. 4. Rectal bleeding. 5. Peripheral vascular disease. 6. Coronary artery disease. 7. Chronic kidney disease. 8. History of rectal fistula. 9. History of rectal bleeding. PLAN: Will review with Infectious Disease and GI regarding next steps in management of the patient. Notes of the consultants have been reviewed and appreciated. The patient is scheduled for dialysis today. All these clinical findings have been discussed with the patient. Aan Frost MD
[2018-12-30 13:47] LABS: ALB/GLOB RATIO 0.8 (1.1-1.8); ALBUMIN 3.2 g/dL (3.0-4.8); CALCIUM 8.3 mg/dL (8.4-10.5)
--- NOTE | 2018-12-30 21:00 | PN ---
DATE: 12/30/2018 SUBJECTIVE: The patient is seen in the dialysis unit. He is awake, he is alert, is comfortable. He denies any pain. Denies any shortness of breath. PHYSICAL EXAMINATION: GENERAL: An elderly male lying in bed. VITAL SIGNS: Blood pressure 129/74, heart rate 86, respiratory rate 18, and temperature 97.8. HEENT: Normocephalic and atraumatic. Positive pallor. NECK: Supple. No JVD. LUNGS: Bilateral equal entry, bilateral equal expansion. No rales. CARDIAC: S1 and S2, regular rate and rhythm. No murmur, no rub. ABDOMEN: Distended, soft, nontender. Bowel sounds present. EXTREMITIES: No lower extremity edema. INTAKE AND OUTPUT: Not charted. LABORATORY DATA: WBC 4.6, hemoglobin 9.9, hematocrit 31, and platelets 147. Sodium 139, potassium 4.4, chloride 102, CO2 of 30, BUN 60, creatinine 7.4, and glucose 153. MEDICATIONS: List reviewed. ASSESSMENT: 1. Chronic kidney disease stage V, now end stage renal disease. 2. Status post severe hyperkalemia, recurrent urinary tract infection. 3. Hydronephrotic kidney with staghorn calculus. 4. Anemia of chronic kidney disease. 5. Paroxysmal atrial fibrillation. 6. Rectal bleeding. PLAN: 1. Stable dialysis. 2. Volume status is acceptable. 3. Plan for right nephrectomy? 4. Continue phosphate binder. 5. Continue current antihypertensives. 6. Discharge planning, the patient will receive outpatient dialysis at [facility] to be arranged by employment evaluator/case manager. Ana Ochoa MD
--- NOTE | 2018-12-30 22:09 | PN ---
DATE: 12/30/2018 SUBJECTIVE: The patient is seen in bed, in no acute distress. No fevers and no chills. PHYSICAL EXAMINATION: VITAL SIGNS: Temperature is 98, blood pressure is 126/70, respiratory rate of 18. HEENT: Unremarkable. NECK: Supple. LUNGS: Decreased breath sounds. HEART: Normal S1 and S2. ABDOMEN: Soft, nontender. LABORATORY DATA: Reveals the white count is 4.6, hemoglobin of 9, platelets of 147. BUN of 60, creatinine of 7.4. Urinalysis is noted. Microbiology reveals blood cultures are negative. Morganella morganii is from the urine culture. MEDICATIONS: Review of orders reveals the patient's meropenem requires renewal, which we will do so. ASSESSMENT AND PLAN: This is a 68-year-old male with history of coronary artery disease, chronic kidney disease, with recurrent urinary tract infections, right hydronephrosis, kidney stones, peripheral arterial disease, diabetes mellitus, colonic fistula who on this admission is admitted with; 1. Severe sepsis with Morganella morganii in the urine. 2. Acute kidney injury on top of chronic kidney injury with pyelonephritis. 3. The patient is also with rectal bleeding. Today is day #8 of 10 to 14 days of meropenem. We will follow with you. Joe Bergman MD
--- NOTE | 2018-12-30 23:37 | CP.PCM.PN ---
Subjective - Date & Time of Evaluation Date of Evaluation: 12/30/18 Time of Evaluation: 20:10 - Subjective Subjective: Patient was comfortable. Tolerating diet denies abdominal pain Objective - Vital Signs/Intake and Output Vital Signs (last 24 hours): Temp Pulse Resp BP Pulse Ox 98.1 F 85 20 133/67 95 12/30/18 18:00 12/30/18 22:00 12/30/18 18:00 12/30/18 21:55 12/30/18 06:00 Intake and Output: 12/30/18 12/31/18 18:59 06:59 Intake Total 1000 Output Total 550 Balance 450 - Medications Medications: Current Medications Acetaminophen (Tylenol 325mg Tab) 650 mg PO Q6H PRN PRN Reason: moderate pain Arformoterol Tartrate (Brovana) 15 mcg IH [id number] [facility] Last Admin: 12/30/18 19:40 Dose: 15 mcg Budesonide (Pulmicort Respules) 0.5 mg IH [id number] [facility] Last Admin: 12/30/18 19:40 Dose: 0.5 mg Calcitriol (Rocaltrol) 0.5 mcg PO DAILY [facility] Last Admin: 12/30/18 09:28 Dose: 0.5 mcg Calcium Acetate (Phoslo) 667 mg PO WM [facility] Last Admin: 12/30/18 18:37 Dose: 667 mg Calcium Carbonate (Oscal) 500 mg PO TID [facility] Last Admin: 12/30/18 18:37 Dose: 500 mg Dextrose (Dextrose 50% Inj) 0 ml IV STAT PRN; Protocol PRN Reason: Hypoglycemia Protocol Dextrose (Dextrose 5% In Water 1000 Ml) 1,000 mls @ 0 mls/hr IV .Q0M PRN; Protocol PRN Reason: Hypoglycemia Protocol Meropenem 250 mg/ Sodium (Chloride) 100 mls @ 100 mls/hr IVPB Q12H [facility]; Protocol Stop: 01/01/19 20:31 Last Admin: 12/30/18 09:28 Dose: 100 mls/hr Insulin Human Lispro (Humalog Low) 0 units SC ACHS [facility]; Protocol Last Admin: 12/30/18 22:16 Dose: Not Given Metoprolol Tartrate (Lopressor) 50 mg PO Q8 [facility] Last Admin: 12/30/18 21:55 Dose: 50 mg Nystatin (Nystop Topical Powder) 0 gm TOP BID [facility] Last Admin: 12/30/18 18:38 Dose: 1 applic Ondansetron HCl (Zofran Inj) 4 mg IVP Q8H PRN PRN Reason: Nausea/Vomiting Last Admin: 12/30/18 22:04 Dose: 4 mg - Labs Labs: 12/30/18 13:20 12/30/18 13:20 PT 14.8 SECONDS (9.4-12.5) H 12/25/18 11:35 INR 1.31 12/25/18 11:35 APTT 32.0 Seconds (26.9-38.3) 12/25/18 11:35 - Constitutional Appears: Well, Non-toxic, No Acute Distress - Head Exam Head Exam: ATRAUMATIC, NORMOCEPHALIC - Eye Exam Eye Exam: EOMI, PERRL - ENT Exam ENT Exam: Mucous Membranes Moist - Neck Exam Neck Exam: Full ROM, Normal Inspection - Respiratory Exam Respiratory Exam: NORMAL BREATHING PATTERN. absent: Accessory Muscle Use - Cardiovascular Exam Cardiovascular Exam: REGULAR RHYTHM, +S1, +S2 - GI/Abdominal Exam GI & Abdominal Exam: Soft, Normal Bowel Sounds. absent: Tenderness - Extremities Exam Extremities Exam: absent: Calf Tenderness - Neurological Exam Neurological Exam: Alert, Awake, Oriented x3 Assessment and Plan - Assessment and Plan (Free Text) Assessment: 1. History of rectal bleeding 2. Rule out anorectal fistula 3. Rule out colovesical fistula 4. Other comorbidities include UTI, acute kidney injury on chronic kidney disease, hydronephrosis, history of paroxysmal A. fib Plan: 1. Continue antibiotics as per ID 2. Follow-up hemoglobin 3. Flexible sigmoidoscopy scheduled on Friday, will change the diet to clear liquid diet and start bowel preparation tomorrow 4. Renal follow-up 5. Discussed with Dr. Frost earlier today
[2018-12-31 06:30] LABS: BASO # 0.01 K/mm3 (0.0-2.0); BASO % 0.2 % (0.0-3.0); EOS # 0.2 (0.0-0.7); LYMPH # 0.9 (1.2-3.4); MEAN CELL VOLUME 92.7 fl (80.0-105.0); MEAN CORPUSCULAR HEMOGLOBIN 29.2 pg (25.0-35.0); MEAN CORPUSCULAR HGB CONC 31.5 g/dl (31.0-37.0); MEAN PLATELET VOLUME 9.5 fl (7.0-11.0); MONO # 0.7 (0.1-0.6); MONO % 13.5 % (1.0-6.0); RBC 3.42 10^6/uL (3.5-6.1); RED CELL DISTRIBUTION WIDTH 14.7 % (11.5-14.5); WHITE BLOOD COUNT 5.1 10^3/uL (4.5-11.0)
[2018-12-31 06:50] LABS: ALB/GLOB RATIO 0.8 (1.1-1.8); ALBUMIN 3.2 g/dL (3.0-4.8); CALCIUM 8.8 mg/dL (8.4-10.5)
[2018-12-31] MEDS: Budesonide 0.5 mg/2 ml Inhal Susp UD IH SCH ×2 (07:45→20:07)
[2018-12-31] MEDS: Arformoterol 15 mcg/2 ml Inh Sol IH SCH ×2 (07:45→20:05)
--- NOTE | 2018-12-31 08:30 | CP.PCM.PN ---
<Robert Morris - Last Filed: 12/31/18 08:35> Subjective - Date & Time of Evaluation Date of Evaluation: 12/31/18 Time of Evaluation: 08:27 - Subjective Subjective: Patient is doing well. No complaints. Denies abdominal pain, further rectal bleeding. Objective - Vital Signs/Intake and Output Vital Signs (last 24 hours): Temp Pulse Resp BP Pulse Ox 98.4 F 81 18 131/84 98 12/31/18 06:00 12/31/18 06:04 12/31/18 06:00 12/31/18 06:04 12/31/18 06:00 Intake and Output: 12/31/18 12/31/18 06:59 18:59 Intake Total 1480 Output Total 950 Balance 530 - Medications Medications: Current Medications Acetaminophen (Tylenol 325mg Tab) 650 mg PO Q6H PRN PRN Reason: moderate pain Arformoterol Tartrate (Brovana) 15 mcg IH [id number] [facility] Last Admin: 12/31/18 07:45 Dose: 15 mcg Bisacodyl (Dulcolax) 10 mg PO ONCE ONE Stop: 12/31/18 18:01 Budesonide (Pulmicort Respules) 0.5 mg IH [id number] [facility] Last Admin: 12/31/18 07:45 Dose: 0.5 mg Calcitriol (Rocaltrol) 0.5 mcg PO DAILY [facility] Last Admin: 12/30/18 09:28 Dose: 0.5 mcg Calcium Acetate (Phoslo) 667 mg PO WM [facility] Last Admin: 12/30/18 18:37 Dose: 667 mg Calcium Carbonate (Oscal) 500 mg PO TID [facility] Last Admin: 12/30/18 18:37 Dose: 500 mg Dextrose (Dextrose 50% Inj) 0 ml IV STAT PRN; Protocol PRN Reason: Hypoglycemia Protocol Dextrose (Dextrose 5% In Water 1000 Ml) 1,000 mls @ 0 mls/hr IV .Q0M PRN; Protocol PRN Reason: Hypoglycemia Protocol Meropenem 250 mg/ Sodium (Chloride) 100 mls @ 100 mls/hr IVPB Q12H [facility]; Protocol Stop: 01/01/19 20:31 Last Admin: 12/31/18 00:17 Dose: 100 mls/hr Insulin Human Lispro (Humalog Low) 0 units SC ACHS [facility]; Protocol Last Admin: 12/30/18 22:16 Dose: Not Given Metoprolol Tartrate (Lopressor) 50 mg PO Q8 [facility] Last Admin: 12/31/18 06:04 Dose: 50 mg Nystatin (Nystop Topical Powder) 0 gm TOP BID [facility] Last Admin: 12/30/18 18:38 Dose: 1 applic Ondansetron HCl (Zofran Inj) 4 mg IVP Q8H PRN PRN Reason: Nausea/Vomiting Last Admin: 12/30/18 22:04 Dose: 4 mg Polyethylene Glycol/Electrolytes (Golytely) 4,000 ml PO ONCE ONE Stop: 12/31/18 14:01 - Labs Labs: 12/31/18 06:00 12/31/18 06:00 PT 14.8 SECONDS (9.4-12.5) H 12/25/18 11:35 INR 1.31 12/25/18 11:35 APTT 32.0 Seconds (26.9-38.3) 12/25/18 11:35 - Constitutional Appears: Non-toxic, No Acute Distress - ENT Exam ENT Exam: Mucous Membranes Moist, Normal Exam - Respiratory Exam Respiratory Exam: Clear to Ausculation Bilateral, NORMAL BREATHING PATTERN - Cardiovascular Exam Cardiovascular Exam: REGULAR RHYTHM, +S1, +S2 - GI/Abdominal Exam GI & Abdominal Exam: Soft, Normal Bowel Sounds. absent: Tenderness - Extremities Exam Extremities Exam: Normal Inspection. absent: Pedal Edema - Neurological Exam Neurological Exam: Alert, Awake, Oriented x3 Assessment and Plan - Assessment and Plan (Free Text) Assessment: #Hematochezia #Hypovolemia #Vasculopathy with CAD, diabetes and PVD #CKD with planned AV fistula for dialysis #Chronic rectal disease s/p colostomy reversal PLAN: -CT reviewed and shows likely rectal fistula however no colovesicular fistula. No obvious colonic inflammation. -Avoid anticoagulation and NSAIDs -Trend hemoglobin -Flex/sig tomorrow. Start bowel prep. NPO PM -Consider OAC pending endo findings. <Keren,Kovil V - Last Filed: 12/31/18 23:57> Objective - Vital Signs/Intake and Output Vital Signs (last 24 hours): Temp Pulse Resp BP Pulse Ox 97.4 F L 81 18 125/65 98 12/31/18 18:00 12/31/18 22:01 12/31/18 18:00 12/31/18 22:01 12/31/18 06:00 Intake and Output: 12/31/18 01/01/19 18:59 06:59 Intake Total 1200 Output Total 500 Balance 700 - Medications Medications: Current Medications Acetaminophen (Tylenol 325mg Tab) 650 mg PO Q6H PRN PRN Reason: moderate pain Arformoterol Tartrate (Brovana) 15 mcg IH [id number] [facility] Last Admin: 12/31/18 20:05 Dose: 15 mcg Budesonide (Pulmicort Respules) 0.5 mg IH [id number] [facility] Last Admin: 12/31/18 20:07 Dose: 0.5 mg Calcitriol (Rocaltrol) 0.5 mcg PO DAILY [facility] Last Admin: 12/31/18 12:25 Dose: 0.5 mcg Calcium Acetate (Phoslo) 667 mg PO WM [facility] Last Admin: 12/31/18 17:31 Dose: 667 mg Calcium Carbonate (Oscal) 500 mg PO TID [facility] Last Admin: 12/31/18 17:30 Dose: 500 mg Dextrose (Dextrose 50% Inj) 0 ml IV STAT PRN; Protocol PRN Reason: Hypoglycemia Protocol Dextrose (Dextrose 5% In Water 1000 Ml) 1,000 mls @ 0 mls/hr IV .Q0M PRN; Protocol PRN Reason: Hypoglycemia Protocol Meropenem 250 mg/ Sodium (Chloride) 100 mls @ 100 mls/hr IVPB Q12H [facility]; Protoc ol Stop: 01/01/19 20:31 Last Admin: 12/31/18 22:00 Dose: 100 mls/hr Insulin Human Lispro (Humalog Low) 0 units SC ACHS [facility]; Protocol Last Admin: 12/31/18 22:11 Dose: Not Given Metoprolol Tartrate (Lopressor) 50 mg PO Q8 [facility] Last Admin: 12/31/18 22:01 Dose: 50 mg Nystatin (Nystop Topical Powder) 0 gm TOP BID [facility] Last Admin: 12/31/18 21:17 Dose: Not Given Ondansetron HCl (Zofran Inj) 4 mg IVP Q8H PRN PRN Reason: Nausea/Vomiting Last Admin: 12/30/18 22:04 Dose: 4 mg - Labs Labs: 12/31/18 06:00 12/31/18 06:00 PT 14.8 SECONDS (9.4-12.5) H 12/25/18 11:35 INR 1.31 12/25/18 11:35 APTT 32.0 Seconds (26.9-38.3) 12/25/18 11:35 Attending/Attestation - Attestation I have personally seen and examined this patient.: Yes I have fully participated in the care of the patient.: Yes I have reviewed all pertinent clinical information, including history, physical exam and plan: Yes Notes (Text): This is an addendum to GI progress report dictated by the GI Fellow. The patient was seen and examined earlier. Medical records, lab studies, imagings were reviewed. Last 24 hours events reviewed. Agreed with the above treatment plan as outlined in GI Fellow 's notes with the addition of the following patient is scheduled for a colonoscopy tomorrow She is a diet to clear liquid diet Antibiotics as per ID Discussed with the Dr. Frost 12/31/18 23:55
--- NOTE | 2018-12-31 11:35 | PN ---
DATE: 12/31/2018 SUBJECTIVE: A 68-year-old male on the telemetry unit. The patient is receiving IV antibiotics for urosepsis and pyelonephritis, being followed by Infectious Disease. He is receiving dialysis, being followed by Nephrology. He status post placement of a PermCath and PICC line. He has a sliding insulin scale for his [id number] diabetes. This morning he is alert and oriented x3. PHYSICAL EXAMINATION VITAL SIGNS: His temperature is 98.4. His blood pressure 131/84, respiratory rate is 18, pulse is 90 and oxygen sat is 98%. He is on nasal oxygen 2 liters. LUNGS: with diminished breath sounds at the bases. HEART: Has a S1 and S2 irregular rhythm. He has a pacemaker. ABDOMEN: Soft, scaphoid with positive bowels sounds. He has an abdominal hernia. EXTREMITIES: Show no evidence of edema. LABORATORY DATA: Shows WBC 5.1, RBC 3.42, hemoglobin is 10, hematocrit 31.7 and platelet count is 144. His chemistries shows sodium of 140, potassium 4.6, chloride 101, BUN of 39 and creatinine is 5.1, status post dialysis yesterday. LFTs are normal. His albumin is 3.2. ASSESSMENT AND PLAN: 1. The patient is scheduled for GI evaluation for his rectal bleeding and to rule out the possibility of rectal fistula. 2. He continues on IV antibiotics as per Infectious Disease for his urosepsis and pyelonephritis. 3. He will need a cystoscopy. 4. Ultimately he will need a right nephrectomy and I will continue current level of care and await further diagnostic studies. Ana Frost MD
[2018-12-31] MEDS: Insulin Lispro (humaLOG) LOW Coverage SC SCH ×4 (12:24→22:11)
--- NOTE | 2018-12-31 12:32 | PN ---
DATE: 12/31/2018 SUBJECTIVE: The patient is in bed in no acute distress. He is awake and alert, doing well. His appetite is good. He has pain. No shortness of breath or cough. PHYSICAL EXAMINATION: VITAL SIGNS: Temperature is 98, blood pressure is 130/80, respiratory rate of 16. HEENT: Unremarkable. NECK: Supple. LUNGS: Have decreased breath sounds. HEART: Normal S1, S2. ABDOMEN: Soft. LABORATORY EXAMINATION: Reveals the patient's white count is 5.1, hemoglobin of 10, platelets of 144. Chemistries were noted and urinalysis is noted. Serology is reviewed. Microbiology reveals the initial blood, urine cultures and Morganella morganii. The repeat urine cultures Morganella morganii again; however, at this time from 12/28/2018 urine cultures no growth. Review of orders confirms the patient to be on meropenem which is active. ASSESSMENT AND PLAN: A 68-year-old male with history of coronary artery disease, chronic kidney disease, recurrent urinary tract infections, right hydronephrosis, kidney stones, peripheral arterial disease, diabetes mellitus, colonic fistula. 1. Severe sepsis with Morganella morganii in the urine, acute kidney injury on top of chronic kidney injury. The patient with pyelonephritis with severe sepsis and the patient had fistula, today is day #9 of 10-14 days of meropenem. Repeat urine cultures are negative. From an ID point of view, the patient is cleared for any urological procedure. Joe Bergman MD
[2018-12-31] MEDS ORDERED: NuLYTELY (NACL/NAHCO3/KCL/PEG) 4L PO ONE (14:00)
--- NOTE | 2018-12-31 15:55 | PN ---
DATE: 12/31/2018 SUBJECTIVE: The patient was seen lying in bed on telemetry, is comfortable at the present time. He remains in atrial fibrillation. He is being prepped for a sigmoidoscopy tomorrow. He has had no evidence of recurrent GI bleeding as hemoglobin remained stable. His current medications include Brovana, metoprolol 50 mg every 8 hours, meropenem, PhosLo, and Pulmicort. PHYSICAL EXAMINATION: GENERAL: He is a middle-aged man who is comfortable at the present time. VITAL SIGNS: Blood pressure 130/84, pulse of 80 in atrial fibrillation with occasional ventricular pacing, respirations are 16. He is afebrile. HEENT: No JVD. CHEST: Few scattered rhonchi. HEART: Irregular regular rhythm with a systolic murmur at the left sternal border. ABDOMEN: Soft, nontender with normoactive bowel sounds. Large incisional hernia is present. EXTREMITIES: Chronic stasis changes. DIAGNOSTIC DATA: Potassium 4.6, BUN and creatinine 39 and 5.1. White count 5.1, hemoglobin and hematocrit 10 and 31.7 with platelet count of 144,000. IMPRESSION: 1. Atrial fibrillation with controlled rate, remains off anticoagulation given recent rectal bleeding. 2. Coronary artery disease status post prior percutaneous coronary intervention, stable at present. 3. 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 4. Recent gram-negative urosepsis, clinically improved. 5. Thrombocytopenia, resolved. 6. Chronic renal failure, remains on hemodialysis. RECOMMENDATIONS: From a cardiac standpoint, he is stable to proceed with his sigmoidoscopy tomorrow. If there is no evidence of increased risk of GI bleeding following the procedure, anticoagulation should be resumed given his chronic atrial fibrillation. The rest of his cardiac medications will continue unchanged. Rate control therapy for his atrial fibrillation is planned. I will follow along as needed. Jose Willams MD
[2018-12-31] MEDS ORDERED: Bisacodyl 5mg EC Tab PO ONE (18:00)
[2018-12-31] MEDS: Nystatin 100,000 Units/gm Topical Pow(15 gm) TOP SCH (21:17)
--- NOTE | 2018-12-31 23:24 | PN ---
DATE: 12/31/2018 SUBJECTIVE: Patient is seen lying in bed. He is awake. He is alert. He is comfortable. He denies any pain. He denies any shortness of breath. PHYSICAL EXAMINATION: GENERAL: An elderly male, lying in bed. VITAL SIGNS: Blood pressure 161/92, heart rate 89, respiratory rate 18, and temperature 97.4. HEENT: Normocephalic and atraumatic. Positive pallor. NECK: Supple. No JVD. LUNGS: Bilateral equal entry, bilateral equal expansion. CARDIAC: S1 and S2, regular rate and rhythm. No murmur, no rub. ABDOMEN: Obese, distended, soft, and nontender. Bowel sounds present. EXTREMITIES: No lower extremity edema. INTAKE AND OUTPUT: 1480/950. LABORATORY DATA: WBC 5, hemoglobin 10, hematocrit 32, and platelets 144. Sodium 140, potassium 4.6, chloride 101, CO2 of 33, BUN 39, creatinine 5.1, glucose 103, and calcium 8.8. CURRENT MEDICATIONS: Lopressor 50 mg every 8 hours, meropenem 250 mg every 12 hours, Os-Thai, PhosLo, Rocaltrol 0.5 mcg, Tylenol, and Zofran. ASSESSMENT: 1. Chronic kidney disease stage V, now end-stage renal disease. 2. Atrial fibrillation, rate controlled. 3. Coronary artery disease, stable. 4. Recent gram-negative urosepsis. 5. Anemia. PLAN: 1. Sigmoidoscopy tomorrow. 2. Dialysis tomorrow. 3. He will require dialysis 3 times a week. 4. Arrangements to be made at the [facility]. 5. Discharge planning. Ana Ochoa MD
[2019-01-01 05:43] LABS: BASO # 0.02 K/mm3 (0.0-2.0); BASO % 0.3 % (0.0-3.0); EOS # 0.2 (0.0-0.7); EOS % 3.6 % (1.5-5.0); LYMPH # 1.2 (1.2-3.4); LYMPH % 21.1 % (22.0-35.0); MEAN CORPUSCULAR HEMOGLOBIN 29.2 pg (25.0-35.0); MEAN CORPUSCULAR HGB CONC 31.4 g/dl (31.0-37.0); MEAN PLATELET VOLUME 9.5 fl (7.0-11.0); MONO # 0.6 (0.1-0.6); MONO % 10.2 % (1.0-6.0); RBC 3.42 10^6/uL (3.5-6.1); RED CELL DISTRIBUTION WIDTH 14.7 % (11.5-14.5); WHITE BLOOD COUNT 5.9 10^3/uL (4.5-11.0)
[2019-01-01] MEDS ORDERED: Bisacodyl 5mg EC Tab PO ONE (07:09)
[2019-01-01 07:15] LABS: ALB/GLOB RATIO 0.8 (1.1-1.8); ALBUMIN 3.1 g/dL (3.0-4.8); CALCIUM 8.6 mg/dL (8.4-10.5)
[2019-01-01] MEDS: Arformoterol 15 mcg/2 ml Inh Sol IH SCH ×2 (07:30→19:24)
[2019-01-01] MEDS: Budesonide 0.5 mg/2 ml Inhal Susp UD IH SCH ×2 (07:30→19:24)
[2019-01-01] MEDS: Insulin Lispro (humaLOG) LOW Coverage SC SCH ×4 (08:02→21:22)
--- NOTE | 2019-01-01 08:16 | PCM.URO ---
Urology Progress Note - Objective Lab Studies: Reviewed (cysto on friday) Lab Results Last 24 Hours: Laboratory Results - last 24 hr 01/01/19 01/01/19 05:26 05:26 WBC 5.9 RBC 3.42 L Hgb 10.0 L Hct 31.8 L MCV 93.0 MCH 29.2 MCHC 31.4 RDW 14.7 H Plt Count 151 MPV 9.5 Neut % (Auto) 64.8 Lymph % (Auto) 21.1 L George % (Auto) 10.2 H Eos % (Auto) 3.6 Baso % (Auto) 0.3 Lymph # (Auto) 1.2 George # (Auto) 0.6 Eos # (Auto) 0.2 Baso # (Auto) 0.02 Absolute Neuts (auto) 3.82 Sodium 140 Potassium 4.4 Chloride 102 Carbon Dioxide 29 Anion Gap 13 BUN 45 H Creatinine 5.8 H Est GFR ( Amer) 12 Est GFR (Non-Af Amer) 10 Random Glucose 95 Calcium 8.6 Total Bilirubin 0.3 AST 26 ALT 6 L Alkaline Phosphatase 70 Total Protein 7.1 Albumin 3.1 Globulin 4.0 Albumin/Globulin Ratio 0.8 L Intake & Output: Intake & Output 12/31/18 01/01/19 01/01/19 18:59 06:59 18:59 Intake Total 1680 Output Total 875 Balance 805 Intake: Oral 1680 Output: Urine 875 2-way Urethral 875 Other: # Bowel Movements 3 Vital Signs: Vital Signs - 24 hr 12/31/18 12/31/18 12/31/18 10:00 12:00 13:43 Temperature 98 F Pulse Rate 82 76 96 H Respiratory 20 Rate Blood Pressure 127/81 127/81 O2 Sat by Pulse Oximetry 12/31/18 12/31/18 12/31/18 14:00 18:00 22:00 Temperature 97.4 F L Pulse Rate 78 104 H 76 Respiratory 18 Rate Blood Pressure 161/92 H O2 Sat by Pulse Oximetry 12/31/18 01/01/19 01/01/19 22:01 00:01 02:00 Temperature Pulse Rate 81 82 Respiratory Rate Blood Pressure 125/65 128/65 O2 Sat by Pulse Oximetry 01/01/19 01/01/19 05:22 06:00 Temperature 98.4 F Pulse Rate 82 91 H Respiratory 19 Rate Blood Pressure 140/84 140/81 O2 Sat by Pulse 94 L Oximetry
[2019-01-01] MEDS: Nystatin 100,000 Units/gm Topical Pow(15 gm) TOP SCH ×4 (10:36→17:52)
[2019-01-01] MEDS ORDERED: Sodium Chloride 0.9% 100 ML IV SCH (14:00)
[2019-01-01] MEDS ORDERED: Propofol 10 mg/ml Inj (20 ML) ONE (14:22)
[2019-01-01] MEDS ORDERED: ePHEDrine 50 mg/ml Inj ONE (14:41)
--- NOTE | 2019-01-01 15:59 | PN ---
DATE: 01/01/2019 SUBJECTIVE: A 68-year-old male currently on dialysis at this moment. He states that he had a quiet night. Nursing staff relates no particular problems. OBJECTIVE: VITAL SIGNS: His temperature is 98.4. His pulse is 91. His blood pressure is 140/81. GENERAL: He is alert and oriented x3. LUNGS: Show diminished breath sounds at the bases. HEART: Irregular S1, S2 rhythm. ABDOMEN: Soft with positive bowels. EXTREMITIES: Show no evidence of edema. LABORATORY DATA: Shows a WBC of 5.9, RBC 3.42, hemoglobin 10, hematocrit 31.8, platelet count is 151. Chemistry shows sodium 140, potassium 4.4, chloride 102, BUN of 45, creatinine of 5.8. His LFTs are normal. His albumin is 2.1. MEDICATIONS: Currently, the patient is on Brovana, Humalog sliding scale, Lopressor, meropenem, nystatin topical ointment, Os-Thai, PhosLo, Pulmicort, calcitriol, Tylenol p.r.n., and Zofran p.r.n. ASSESSMENT: 1. Chronic renal failure on dialysis three times a week. 2. Recurrent urinary tract infection/pyelonephritis. 3. History of right hydronephrosis with renal stones. 4. History of neurogenic bladder. 5. History of rectal fistula. 6. History of peripheral vascular disease. 7. History of pacemaker. 8. History of atrial fibrillation. 9. History of [id number] diabetes. PLAN: At the present time, the patient is receiving his dialysis and is being prepped for GI evaluation because he presented with a rectal bleeding. At the same time, Urology is following the patient with an intent to do a cystoscopy once GI is completed its evaluation. He continues to be monitored by the individual consultants from Nephrology, Cardiology, and Infectious Disease. He is clinically aware of his clinical medical problems and will continue to follow the patient closely. Ana Frost MD
--- NOTE | 2019-01-01 18:51 | PN ---
DATE: 01/01/2019 SUBJECTIVE: The patient is seen lying in bed. He is awake. He is alert. He is comfortable. PHYSICAL EXAMINATION GENERAL: Elderly male lying in bed. Vital signs: Blood pressure 121/60, heart rate 86, respiratory rate 18, temperature 98.4. HEENT: Normocephalic, atraumatic, positive pallor. NECK: Supple, no JVD. LUNGS: Bilateral equal air entry, no rales, no rhonchi. CARDIAC: S1, S2, regular rate and rhythm, no murmur, no rub. ABDOMEN: Obese, distended, soft, nontender, bowel sounds present. EXTREMITIES: No lower extremity edema. LABORATORY DATA: Hemoglobin 10. Sodium 140, potassium 4.4, chloride 112, CO2 of 29, BUN 45, creatinine 5.8, glucose 95, calcium 8.6, albumin 3.1. MEDICATIONS: List reviewed. ASSESSMENT 1. End-stage renal disease. 2. Rectal bleeding. 3. Anemia of chronic disease. 4. Hypertension. 5. Staghorn calculus right kidney, recurrent urinary tract infections. PLAN 1. Stable dialysis earlier today. 2. For sigmoidoscopy today. 3. Outpatient dialysis at [facility], Friday, Friday and Friday. 4. AV access as outpatient. Ana Ochoa MD
--- NOTE | 2019-01-02 01:04 | PN ---
DATE: 01/01/2019 SUBJECTIVE: The patient is seen earlier this morning in room 263, bed 2. He is awake and alert. No fevers, no chills. No abdominal pain. PHYSICAL EXAMINATION: VITAL SIGNS: Temperature is 98, blood pressure is 102/60, respiratory rate of 18. HEENT: Unremarkable. NECK: Supple. LUNGS: Have decreased breath sounds. HEART: Normal S1, S2. ABDOMEN: Soft. LABORATORY DATA: Reveals a white count of 5.9, hemoglobin of 10, platelets of 151. Coagulation is noted and chemistries reveal a BUN of 45, creatinine of 5.8. Urinalysis is noted. ASSESSMENT AND PLAN: He is a 68-year-old male with history of coronary artery disease, chronic kidney disease, recurrent urinary tract infections, right hydronephrosis, kidney stones, peripheral arterial disease, diabetes, colonic fistula. 1. Severe sepsis with Morganella morganii in the urine, acute kidney injury on top of chronic kidney injury. The patient with pyelonephritis, severe sepsis and had a fistula. Today is day #10 of 10-14 days of meropenem. Microbiology reveals a repeat culture from 12/28/2018 is negative. The patient is cleared for urological surgery. Joe Bergman MD
[2019-01-02] MEDS: Insulin Lispro (humaLOG) LOW Coverage SC SCH ×4 (07:43→22:37)
[2019-01-02] MEDS: Arformoterol 15 mcg/2 ml Inh Sol IH SCH ×2 (07:46→21:15)
[2019-01-02] MEDS: Budesonide 0.5 mg/2 ml Inhal Susp UD IH SCH ×2 (07:46→21:15)
[2019-01-02] MEDS: Nystatin 100,000 Units/gm Topical Pow(15 gm) TOP SCH ×2 (09:24→17:46)
--- NOTE | 2019-01-02 11:26 | PN ---
DATE: 01/02/2019 SUBJECTIVE: A 68-year-old male on the telemetry unit. The patient is status post flexible sigmoidoscopy study. Nursing staff relates that there were no problems with the patient during the night. This morning, the patient says that he had a busy day, but he is feeling better this morning. OBJECTIVE: VITAL SIGNS: Show a temperature of 98.2, his pulse is 84, his blood pressure is 100/60, respiratory rate is 18. Oxygen saturation is 97% on room air. GENERAL: He is alert and oriented x3. LUNGS: Clear with diminished breath sounds at the bases. HEART: Irregular S1 and S2 rhythm. He has a pacemaker in place. ABDOMEN: Soft, scaphoid with positive bowel sounds. He has an abdominal hernia from a prior colostomy closure. EXTREMITIES: Show no evidence of edema. He has a PermCath for dialysis in his right chest and a PICC line in his right arm. MEDICATIONS: At the present time, the patient is on Brovana, Eliquis, sliding insulin scale, Humalog, Lopressor, meropenem, nystatin, Os-Thai, PhosLo, Pulmicort, Rocaltrol. He had dialysis yesterday. ASSESSMENT AND PLAN: A verbal report from the flexible sigmoidoscopy says that there was evidence of the cysts, evidence of hemorrhoids and a small sinus fistula, which was not felt to be of concern at this time. He has not had any further rectal bleeding at this time and has not been reported. The patient is being receiving antibiotic therapy for urosepsis, being followed by Infectious Disease. He is tentatively scheduled for a cystoscopy on Friday. He is being followed by the Renal for his chronic renal disease on dialysis three times a week, Cardiology for his underlying atrial fibrillation and Infectious Disease and as well as [facility]. All clinical data and findings have been discussed fully with the patient. We will try attempt to initiate mobilization of the patient with physical therapy and the patient has been encouraged to get up and out of bed. He will need a rehab. There is an ongoing discussion about the management of his right kidney, which is being discussed with the individual consultants. Ana Frost MD
--- NOTE | 2019-01-02 11:26 | CP.PCM.PN ---
<ShreyasmargygabyRobert - Last Filed: 01/02/19 11:22> Subjective - Date & Time of Evaluation Date of Evaluation: 01/02/19 Time of Evaluation: 11:22 - Subjective Subjective: No active complaints. No clinical changes. Tolerating diet. Denies bloody stool or abdominal pain. Objective - Vital Signs/Intake and Output Vital Signs (last 24 hours): Temp Pulse Resp BP Pulse Ox 98.2 F 84 18 95/57 L 97 01/02/19 06:13 01/02/19 10:00 01/02/19 06:13 01/02/19 09:19 01/02/19 06:13 Intake and Output: 01/02/19 01/02/19 06:59 18:59 Intake Total 240 Output Total 125 Balance 115 - Medications Medications: Current Medications Acetaminophen (Tylenol 325mg Tab) 650 mg PO Q6H PRN PRN Reason: moderate pain Arformoterol Tartrate (Brovana) 15 mcg IH [id number] [facility] Last Admin: 01/02/19 07:46 Dose: 15 mcg Budesonide (Pulmicort Respules) 0.5 mg IH [id number] [facility] Last Admin: 01/02/19 07:46 Dose: 0.5 mg Calcitriol (Rocaltrol) 0.5 mcg PO DAILY [facility] Last Admin: 01/02/19 09:25 Dose: 0.5 mcg Calcium Acetate (Phoslo) 667 mg PO WM [facility] Last Admin: 01/02/19 07:47 Dose: 667 mg Calcium Carbonate (Oscal) 500 mg PO TID [facility] Last Admin: 01/02/19 09:24 Dose: 500 mg Dextrose (Dextrose 50% Inj) 0 ml IV STAT PRN; Protocol PRN Reason: Hypoglycemia Protocol Dextrose (Dextrose 5% In Water 1000 Ml) 1,000 mls @ 0 mls/hr IV .Q0M PRN; Protocol PRN Reason: Hypoglycemia Protocol Meropenem 250 mg/ Sodium (Chloride) 100 mls @ 100 mls/hr IVPB Q12H [facility]; Protocol Stop: 01/08/19 21:31 Last Admin: 01/02/19 09:24 Dose: 100 mls/hr Insulin Human Lispro (Humalog Low) 0 units SC ACHS [facility]; Protocol Last Admin: 01/02/19 07:43 Dose: Not Given Metoprolol Tartrate (Lopressor) 50 mg PO Q12 [facility] Last Admin: 01/02/19 09:19 Dose: Not Given Nystatin (Nystop Topical Powder) 0 gm TOP BID [facility] Last Admin: 01/02/19 09:24 Dose: 1 applic Ondansetron HCl (Zofran Inj) 4 mg IVP Q8H PRN PRN Reason: Nausea/Vomiting Last Admin: 12/30/18 22:04 Dose: 4 mg - Labs Labs: 01/01/19 05:26 01/01/19 05:26 PT 14.8 SECONDS (9.4-12.5) H 12/25/18 11:35 INR 1.31 12/25/18 11:35 APTT 32.0 Seconds (26.9-38.3) 12/25/18 11:35 - Constitutional Appears: Non-toxic, No Acute Distress - Head Exam Head Exam: ATRAUMATIC, NORMAL INSPECTION - ENT Exam ENT Exam: Mucous Membranes Moist, Normal Exam - Respiratory Exam Respiratory Exam: Clear to Ausculation Bilateral, NORMAL BREATHING PATTERN - Cardiovascular Exam Cardiovascular Exam: +S1, +S2. absent: Tachycardia - GI/Abdominal Exam GI & Abdominal Exam: Soft, Normal Bowel Sounds. absent: Tenderness - Neurological Exam Neurological Exam: Alert, Awake, Oriented x3 - Psychiatric Exam Psychiatric exam: Normal Affect, Normal Mood Assessment and Plan - Assessment and Plan (Free Text) Assessment: #Hematochezia #Hypovolemia #Vasculopathy with CAD, diabetes and PVD #CKD with planned AV fistula for dialysis #Chronic rectal disease s/p colostomy reversal PLAN: -Colonoscopy 01/01/18 - Diminutive anal sinus vs fistula. No source of significant bleeding. Colostomy reversal anastomosis normal. -CT reviewed and shows likely rectal fistula however no colovesicular fistula. No obvious colonic inflammation. -Trend hemoglobin -OK to start anticoagulation from GI perspective. Case discussed with Dr. Veliz, see attestation. <Clifton Veliz V - Last Filed: 01/02/19 16:23> Objective - Vital Signs/Intake and Output Vital Signs (last 24 hours): Temp Pulse Resp BP Pulse Ox 98.5 F 110 H 18 125/82 97 01/02/19 12:00 01/02/19 14:00 01/02/19 12:00 01/02/19 12:00 01/02/19 06:13 Intake and Output: 01/02/19 01/02/19 06:59 18:59 Intake Total 240 Output Total 125 Balance 115 - Medications Medications: Current Medications Acetaminophen (Tylenol 325mg Tab) 650 mg PO Q6H PRN PRN Reason: moderate pain Arformoterol Tartrate (Brovana) 15 mcg IH [id number] [facility] Last Admin: 01/02/19 07:46 Dose: 15 mcg Budesonide (Pulmicort Respules) 0.5 mg IH [id number] NESHA Last Admin: 01/02/19 07:46 Dose: 0.5 mg Calcitriol (Rocaltrol) 0.5 mcg PO DAILY [facility] Last Admin: 01/02/19 09:25 Dose: 0.5 mcg Calcium Acetate (Phoslo) 667 mg PO WM [facility] Last Admin: 01/02/19 12:28 Dose: 667 mg Calcium Carbonate (Oscal) 500 mg PO TID [facility] Last Admin: 01/02/19 14:56 Dose: 500 mg Dextrose (Dextrose 50% Inj) 0 ml IV STAT PRN; Protocol PRN Reason: Hypoglycemia Protocol Dextrose (Dextrose 5% In Water 1000 Ml) 1,000 mls @ 0 mls/hr IV .Q0M PRN; Protocol PRN Reason: Hypoglycemia Protocol Meropenem 250 mg/ Sodium (Chloride) 100 mls @ 100 mls/hr IVPB Q12H [facility]; Protocol Stop: 01/08/19 21:31 Last Admin: 01/02/19 09:24 Dose: 100 mls/hr Insulin Human Lispro (Humalog Low) 0 units SC ACHS [facility]; Protocol Last Admin: 01/02/19 12:23 Dose: Not Given Metoprolol Tartrate (Lopressor) 50 mg PO Q12 [facility] Last Admin: 01/02/19 09:19 Dose: Not Given Nystatin (Nystop Topical Powder) 0 gm TOP BID [facility] Last Admin: 01/02/19 09:24 Dose: 1 applic Ondansetron HCl (Zofran Inj) 4 mg IVP Q8H PRN PRN Reason: Nausea/Vomiting Last Admin: 12/30/18 22:04 Dose: 4 mg - Labs Labs: 01/01/19 05:26 01/01/19 05:26 PT 14.8 SECONDS (9.4-12.5) H 12/25/18 11:35 INR 1.31 12/25/18 11:35 APTT 32.0 Seconds (26.9-38.3) 12/25/18 11:35 Attending/Attestation - Attestation I have personally seen and examined this patient.: Yes I have fully participated in the care of the patient.: Yes I have reviewed all pertinent clinical information, including history, physical exam and plan: Yes Notes (Text): This patient was seen and evaluated earlier. Reviewed with the GI fellow. Imaging studies were reviewed. Status post colonoscopy findings reviewed with the patient. Patient had a small sinus/fistula at the perianal area. No other abnormalities apart from small hemorrhoids noticed in the rectum. The CT scan was reviewed and compared with endoscopy findings. Patient did have perianal abscess in the past extensive disease requiring c olostomy for the management and subsequently had reversal. Now admitted with a severe sepsis probably secondary to right pyelonephritis patient had hydro-with the calculus. Planned for surgery Patient also found to have thickened urinary bladder plan for cystoscopy Patient now has no further episodes of bleeding per rectum. Patient did have rectal bleeding on admission Recommendation is to follow-up hemoglobin hematocrit GI perspective -patient can be restarted on anticoagulation if needed Continue antibiotics as per ID Urology and cardiac follow-up Thank you very much Dr. Frost for allowing us to participate in the care of the patient 01/02/19 16:19
--- NOTE | 2019-01-02 13:22 | PN ---
DATE: 01/02/2019 SUBJECTIVE: The patient is currently seen on 2R. He is entirely comfortable lying in bed. He is receiving IV antibiotic therapy for his urinary tract infection. The patient has been tolerating dialysis well. He has a right upper extremity PermCath. His laboratory values have improved with dialysis. MEDICATIONS: Medication list reviewed. The patient is on Brovana, sliding scale insulin, Lopressor, meropenem, Nystatin, Os-Thai, PhosLo, Pulmicort, Rocaltrol, Tylenol and Zofran. PHYSICAL EXAMINATION: INTAKE/OUTPUT: Intake is 280, output is 125 plus dialysis. VITAL SIGNS: Blood pressure 96/59, temperature 98.2, respiratory rate 18 with a pulse of 87. HEENT: Normocephalic, atraumatic. Conjunctivae are pink. Sclerae nonicteric. NECK: Supple. No neck vein distention. CHEST: Right chest wall PermCath. LUNGS: Clear to auscultation and percussion. No rales, rhonchi or wheezing. CARDIOVASCULAR: Shows an irregular S1, S2 with a soft systolic murmur left lower sternal border. No S3, no S4, no rub. The patient has a permanent pacemaker. ABDOMEN: Soft. Bowel sounds normal. No rebound, guarding or masses. He does have a large nonreducible left lower quadrant abdominal wall hernia. EXTREMITIES: Show no lower extremity cyanosis, clubbing or edema. He has a PICC line in the right upper extremity. LABORATORY DATA AND IMAGING: CBC, white blood cell count from yesterday 5.9, hemoglobin 10, platelet count is 151,000. Chemistries are normal. BUN 45 with a creatinine of 5.8. Calcium is 8.6 with a glucose of 95. Last phosphorus level was 4. Microbiology, urines were positive for Morganella morganii. Followup urine cultures were negative. ASSESSMENT: 1. Acute renal failure superimposed on chronic kidney disease stage V, now with progression to end-stage renal disease. The patient is tolerating hemodialysis well. He is no longer hyperkalemic. He is no longer acidotic. The patient will require an arteriovenous fistula placement post stabilization of his urinary tract infection. 2. Status post severe metabolic acidosis, status post sodium bicarbonate, now corrected with dialysis. 3. History of hypertension. Blood pressure is in the low normal range for only removing small amounts of fluid with dialysis. 4. History of tachycardia with atrial fibrillation. The patient was on chronic anticoagulation. He is currently off this medication. He does have a permanent pacemaker. He does have mild valvular heart disease with a history of arteriosclerotic heart disease. 5. History of trc-guzjbgn-brfxcosuh diabetes mellitus. The patient remains on sliding scale insulin with acceptable glucose control. 6. History of secondary hyperparathyroidism secondary to chronic kidney disease. The patient remains on binder therapy and a renal diet. 7. Urinary tract infection with Morganella morganii. This is likely in part secondary receiving from an infected large right staghorn renal calculus. As discussed with Dr. Bergman and Dr. Frost, I would favor removal of that kidney completely rather than placement of nephrostomy tube. Further discussion with Dr. Villavicencio regarding the possibility of doing this and the appropriate timing. 8. History of peripheral vascular disease status post multiple lower extremity foot surgeries. 9. History of paraspinal abscess with history of diverticulosis, history of colectomy with colostomy, history of reversal of colostomy, all appeared to be stable. The patient has a large left nonreducible lower quadrant abdominal wall hernia. 10. History of anemia secondary to chronic kidney disease. The patient is receiving Aranesp with dialysis. The patient did have limited gastrointestinal bleeding. He did have a colonoscopy which showed a possible perianal sinus versus fistula. PLAN: 1. Next hemodialysis is scheduled for 01/04/2019. 2. Complete a full course of antibiotic therapy. Duration as per Dr. Bergman. 3. Further discussion with Dr. Villavicencio regarding the possibility of doing a right nephrectomy. 4. Ultimately, the patient will need an AV fistula created. 5. The patient will likely go to the [facility] unit in [place] for outpatient dialysis. Bryan Vail MD
--- NOTE | 2019-01-02 15:20 | PN ---
DATE: 01/02/2019 SUBJECTIVE: The patient is seen in bed, awake and alert. No fevers. No chills. No nausea. PHYSICAL EXAMINATION: VITAL SIGNS: Temperature is 98, blood pressure is 125/80, respiratory rate of 18 and heart rate of 110. HEENT: Unremarkable. NECK: Supple. LUNGS: Decreased breath sounds. HEART: Normal, S1 and S2. ABDOMEN: Soft and nontender. LABORATORY DATA: Reveals the patient's white count is 5.9, hemoglobin at 10, BUN of 45 and creatinine 5.8. Urinalysis is noted and serology is reviewed. Microbiology reveals Morganella morganii. Review of orders reveals the meropenem to be active. ASSESSMENT AND PLAN: He is a 68-year-old male with a history of coronary artery disease, chronic kidney disease, recurrent urinary tract infection, right hydronephrosis, kidney stones, peripheral arterial disease, diabetes noted and colonic fistula, admitted with severe sepsis, Morganella morganii in the urine with acute kidney injury on chronic kidney injury, with pyelonephritis and source in the kidney, severe sepsis and had a fistula. Today is day #11 of 14 days of meropenem. Case is discussed with [facility]. feels the patient would benefit from nephrectomy since the kidney is source of recurrent infections. The patient will be on dialysis. Joe Bergman MD
[2019-01-03 07:04] LABS: BASO # 0.02 K/mm3 (0.0-2.0); BASO % 0.3 % (0.0-3.0); EOS # 0.2 (0.0-0.7); EOS % 2.4 % (1.5-5.0); INR 1.3; LYMPH # 1.1 (1.2-3.4); LYMPH % 16.2 % (22.0-35.0); MEAN CELL VOLUME 92.9 fl (80.0-105.0); MEAN CORPUSCULAR HGB CONC 31.3 g/dl (31.0-37.0); MEAN PLATELET VOLUME 10.2 fl (7.0-11.0); MONO # 0.9 (0.1-0.6); MONO % 12.7 % (1.0-6.0); PARTIAL THROMBOPLASTIN TIME 30.6 Seconds (26.9-38.3); PROTHROMBIN TIME 14.7 SECONDS (9.4-12.5); RBC 3.1 10^6/uL (3.5-6.1); RED CELL DISTRIBUTION WIDTH 14.4 % (11.5-14.5); WHITE BLOOD COUNT 6.7 10^3/uL (4.5-11.0)
[2019-01-03 07:14] LABS: ALB/GLOB RATIO 0.7 (1.1-1.8); AST/SGOT 22 U/L (17-59); BLOOD UREA NITROGEN 49 mg/dL (7-21); GFR NON-AFRICAN AMERICAN 8
[2019-01-03 07:20] LABS: ALT/SGPT < 6 U/L (7-56)
[2019-01-03] MEDS: Budesonide 0.5 mg/2 ml Inhal Susp UD IH SCH ×2 (07:52→19:28)
[2019-01-03] MEDS: Arformoterol 15 mcg/2 ml Inh Sol IH SCH ×2 (07:52→19:28)
[2019-01-03] MEDS: Insulin Lispro (humaLOG) LOW Coverage SC SCH ×4 (07:59→22:57)
[2019-01-03] MEDS: Nystatin 100,000 Units/gm Topical Pow(15 gm) TOP SCH ×2 (09:39→17:17)
--- NOTE | 2019-01-03 10:37 | PN ---
DATE: 01/03/2019 SUBJECTIVE: The patient is in bed in no acute distress, nontoxic. OBJECTIVE: VITAL SIGNS: On exam, temperature is 98, blood pressure is 130/80, respiratory rate of 18. HEENT: Unremarkable. NECK: Supple. LUNGS: Have decreased breath sounds. HEART: Normal S1, S2. ABDOMEN: Soft, nontender. LABORATORY EXAMINATION: Reveals a white count of 6.7, hemoglobin of 9, platelets of 156. BUN of 49, creatinine 6.8. Urinalysis is noted. Serology is noted. Microbiology is reviewed. Review of orders reveals the patient is on meropenem. Repeat urine cultures are negative. ASSESSMENT AND PLAN: This is a 68-year-old male with a history of coronary artery disease, chronic kidney disease, recurrent urinary tract infection, right hydronephrosis, kidney stones, peripheral arterial disease, diabetes mellitus, noting colonic fistula, admitted with severe sepsis, Morganella morganii in the urine and acute kidney injury on top of chronic kidney injury with pyelonephritis as the source is the kidney and had a fistula. Today is day #12 of 14 days of meropenem. Repeat urine cultures negative. As discussed with Dr. Vail, the patient may need a nephrectomy since the patient will be on dialysis. Joe Bergman MD
--- NOTE | 2019-01-03 13:23 | PN ---
DATE: 01/03/2019 SUBJECTIVE: The patient is currently seen on 2R, lying comfortable in bed on telemetry. He is continuing to receive IV antibiotic therapy for his recurrent urinary tract infections as discussed with Dr. Frost. The patient is scheduled for a cystoscopy tomorrow along with dialysis. I do not favor placing a stent in the right kidney. He did have a split function renal scan years back which showed very minimal function of the right kidney and that was at a point in time when he had a creatinine in the 4 range. The patient should proceed to either go ahead with an open right nephrectomy or a laparoscopic right nephrectomy. This will rid us of the possibility of recurrent urinary tract infections. Plus that the patient should go on to have an AV fistula created by Dr. Morales, as was originally planned. MEDICATIONS: Medication list reviewed. The patient is currently on Brovana, sliding scale insulin, Lopressor, meropenem, Nystatin, Os-Thai, PhosLo, Pulmicort, Rocaltrol, Tylenol p.r.n. and Zofran p.r.n. The baby was level of the fifth floor for cough. OBJECTIVE: INTAKE/OUTPUT: Intake is 2660 and output is 1475. VITAL SIGNS: Blood pressure 119/78, temperature 97.9, respiratory rate of 18 with a pulse of 86. HEENT: Shows him to be normocephalic and atraumatic. Conjunctivae remain pale. Sclerae are nonicteric. NECK: Supple. No neck vein distention. CHEST: Right chest wall PermCath. LUNGS: Clear to auscultation and percussion with no rales, rhonchi or wheezing. CARDIOVASCULAR: Shows an irregular S1 and S2 with a soft systolic murmur left lower sternal border. No S3, no S4, no rub. The patient has a permanent pacemaker. ABDOMEN: Soft. Bowel sounds normal. No rebound, guarding or masses. He does have a large nonreducible left lower quadrant abdominal wall hernia. EXTREMITIES: Show no lower extremity cyanosis, clubbing or edema. He does have a PICC line in the right upper extremity. LABORATORY DATA AND IMAGING STUDIES: CBC; white blood cell count today 6.7, hemoglobin 9.0 and platelet count is 156,000. Coags, PT is 14.7 with an INR of 1.3. Chemistry showed normal electrolytes. BUN 49 with a creatinine of 6.8. Glucose is 117 and calcium is 9.0. Last phosphorus was 4.0 despite my order requesting phosphorus levels with each dialysis. Albumin level is 3.0. Microbiology; again urine cultures are positive for Morganella morganii. ASSESSMENT: 1. Acute renal failure superimposed on chronic kidney disease stage V, now with progression to end-stage renal disease. The patient is been tolerating dialysis well. Electrolytes have normalized. Metabolic acidosis has resolved. The patient will ultimately require an arteriovenous fistula placement post stabilization of his urinary tract infection and likely right nephrectomy. 2. History of hypertension. Blood pressure is in the low normal range. The patient remains on low-dose beta-gino therapy. 3. History of tachycardia with atrial fibrillation. The patient currently remains with a normal heart rate. At some point in time the patient will need to go back on chronic anticoagulation. He does have mild valvular heart disease and history of atherosclerotic heart disease. 4. History of non-insulin and diabetes mellitus. The patient remains on sliding scale insulin with acceptable glucose control. 5. History of secondary hyperparathyroidism secondary to chronic kidney disease. The patient remains on binder therapy and a renal diet. 6. History of urinary tract infection with Morganella morganii. As discussed with Dr. Frost and with Infectious Disease and as per Dr. Frost' discussion with Dr. Villavicencio. Ultimately the patient will require a right nephrectomy. Whether this is done robotically or as an open procedure that decision will be left Urology. 7. History of peripheral vascular disease status post multiple lower foot surgeries. 8. History of paraspinal abscess with history of diverticulosis, history of colectomy with colostomy and history of reversal of colostomy, all appear to be stable. The patient has a large nonreducible lower quadrant abdominal wall hernia. No surgical intervention is planned. 9. History of anemia secondary to chronic kidney disease. The patient is receiving Aranesp on dialysis. He did have limited gastrointestinal bleed on admission, the colonoscopy which was done showed a possible perianal sinus versus fistula. PLAN: 1. Next hemodialysis is scheduled for tomorrow. The patient will also likely have a cystoscopy as per Dr. Villavicencio tomorrow. This will be need to be coordinated with dialysis. 2. Complete a full course of antibiotic therapy for his Morganella urinary tract infection. 3. No plans right now for AV fistula creation until the urological issue is completely cleared up. 4. The patient will continue Friday, Friday and Friday dialysis as an inpatient and likely transition over to [facility] in [place] for outpatient dialysis once he is discharged. Bryan Vail MD
--- NOTE | 2019-01-03 13:30 | PN ---
DATE: 01/03/2019 SUBJECTIVE: A 68-year-old male on the telemetry unit. Nursing staff relates that there were no particular problems. He worked with physical therapy yesterday. OBJECTIVE: VITAL SIGNS: His temperature is 97.9. His pulse is 75. His blood pressure is 132/81 with a respiratory rate of 18. NECK: Supple. LUNGS: Show diminished breath sounds at the bases. HEART: Irregular S1, S2 rhythm. He has a pacemaker in place. ABDOMEN: Soft with positive bowel sounds. There is an abdominal hernia and place status post colostomy repair. EXTREMITIES: Show no evidence of edema. LABORATORY DATA: Shows a WBC of 6.7, RBC 3.1, hemoglobin 9, hematocrit 28.8, platelet count is 156. His PT is 14.7 with an INR of 1.3, PTT is 30.6. Chemistry shows sodium 138, potassium 4, chloride 100, the BUN is 49, the creatinine is 6.8. His blood sugar is 117. LFTs are normal. Albumin is 3. ASSESSMENT AND PLAN: The patient is currently on dialysis three times a week. He is currently receiving antibiotic therapy for urosepsis. He has been cleared by Infectious Disease for his procedures. He underwent a gastrointestinal evaluation. The results of which have been noted and discussed with the patient. He is tentatively scheduled for cystoscopy in the morning. We will follow up his labs and his blood count. We will continue current care. Ana Frost MD
--- NOTE | 2019-01-04 01:56 | PN ---
DATE: 01/01/2019 PROGRESS NOTE See previous notes. The patient is off in dialysis. I reviewed the older records and reviewed by the patient's doctor. Past medical, surgical all listed. No other changes. The patient is being followed by [facility], by Infectious Disease. From urology standpoint, he still has a stone. diagnosis is renal failure, recurrent infections, urolithiasis. The plan will be as follows. We would like to put a cysto, do a cystoscopy and a stent insertion, perhaps this will decrease his risk of infection by draining the kidney well. Further plans can follow, but from urology standpoint, probably the next step, will make arrangement if the patient is amenable to it and cleared medically ID siddiqi and from a kidney standpoint. Eventually, most likely, the best suggestion would be a nephrectomy. There is unlikely to be limited success at complete stone fragmentation and getting the patient stone free with his stone burden, and therefore, best is a nephrectomy. It is possible to try to make the patient stone free, and we can discuss that option too, but in the meantime, we are going to put a stent nephrectomy that should be best be done robotically, and we could make arrangement at another institution either robotically. Robotic surgeon will discuss that in consultation, but the next step will be for 01/04/2019, we are going to plan for a cysto and a stent insertion, and then further plans will follow. Benny Villavicencio MD
[2019-01-04 07:02] LABS: BASO # 0.01 K/mm3 (0.0-2.0); BASO % 0.1 % (0.0-3.0); EOS # 0.1 (0.0-0.7); HEMOGLOBIN 9.3 g/dL (14.0-18.0); LYMPH # 1.2 (1.2-3.4); LYMPH % 16.8 % (22.0-35.0); MEAN CELL VOLUME 91.7 fl (80.0-105.0); MEAN CORPUSCULAR HEMOGLOBIN 29.8 pg (25.0-35.0); MEAN CORPUSCULAR HGB CONC 32.5 g/dl (31.0-37.0); MEAN PLATELET VOLUME 9.8 fl (7.0-11.0); MONO # 0.5 (0.1-0.6); MONO % 7.6 % (1.0-6.0); RBC 3.12 10^6/uL (3.5-6.1); RED CELL DISTRIBUTION WIDTH 14.1 % (11.5-14.5)
[2019-01-04 07:10] LABS: INR 1.28; PROTHROMBIN TIME 14.5 SECONDS (9.4-12.5)
[2019-01-04] MEDS: Arformoterol 15 mcg/2 ml Inh Sol IH SCH ×2 (07:24→19:15)
[2019-01-04] MEDS: Budesonide 0.5 mg/2 ml Inhal Susp UD IH SCH ×2 (07:24→19:16)
[2019-01-04 07:45] LABS: ALB/GLOB RATIO 0.7 (1.1-1.8); ALT/SGPT < 6 U/L (7-56); AST/SGOT 20 U/L (17-59); BLOOD UREA NITROGEN 60 mg/dL (7-21); GFR NON-AFRICAN AMERICAN 7
[2019-01-04] MEDS: Insulin Lispro (humaLOG) LOW Coverage SC SCH ×4 (07:48→22:19)
--- NOTE | 2019-01-04 08:38 | PN ---
DATE: 01/02/2019 SUBJECTIVE: The patient is seen lying in bed on telemetry. He underwent a colonoscopy yesterday, which showed no evidence of a potential source of GI bleeding. He has been cleared to begin the anticoagulant therapy. He, otherwise, feels well. CURRENT MEDICATIONS: Include Brovana, metoprolol 50 mg every 8 hours meropenem, PhosLo, Pulmicort. OBJECTIVE: GENERAL: He is a middle-aged man, who is comfortable at the present time. VITAL SIGNS: His blood pressure is 96/60 with pulse of 86 and atrial fibrillation, respirations are 14. He is afebrile. HEENT: No JVD. CHEST: Few scattered rhonchi heard. HEART: Rhythm is irregularly irregular. ABDOMEN: Soft with incisional hernia present. Bowel sounds are present. EXTREMITIES: No edema. LABORATORY DATA: No blood work pending from this morning. IMPRESSION: 1. Persistent atrial fibrillation with controlled rate. 2. Coronary artery disease status post prior percutaneous coronary intervention. 3. 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 4. Recent gram-negative urosepsis, now improved. 5. Thrombocytopenia, resolved. 6. Chronic renal failure, maintained on hemodialysis. RECOMMENDATIONS: His metoprolol has been withheld intermittently for a borderline low blood pressure. At this time his dose will be reduced to 50 mg twice daily. Given his negative sigmoidoscopy yesterday, low-dose Eliquis will be initiated for anticoagulant purposes. From a cardiac standpoint, he is stable for discharge home at this time. Outpatient followup will be arranged as needed. Jose Willams MD MTDD
--- NOTE | 2019-01-04 08:53 | PN ---
DATE: 01/03/2019 SUBJECTIVE: The patient is seen lying in bed, on telemetry. He is currently comfortable. Plans are in process for cystoscopy tomorrow. His anticoagulant therapy remains on hold. MEDICATIONS: His current medications include Brovana, metoprolol 50 mg every 12 hours, meropenem, PhosLo, and Pulmicort inhaler. OBJECTIVE: GENERAL: He is a middle-aged man who appears comfortable at rest. VITAL SIGNS: Blood pressure 130/80 with pulse 76 and sinus, respirations are 60. He is afebrile. HEENT: No JVD. CHEST: Few scattered rhonchi. HEART: PMI displaced laterally with systolic murmur in left sternal border. ABDOMEN: Soft with large ventral incisional hernia. EXTREMITIES: No edema. DIAGNOSTIC DATA: No blood work pending from this morning. IMPRESSION: 1. Paroxysmal atrial fibrillation. 2. Coronary disease, status post prior percutaneous coronary intervention with recent stress test showed no evidence of ischemia. 3. Status post permanent pacemaker implant for the patient's bradycardia-tachycardia syndrome. 4. Recent gram-negative urosepsis. 5. Chronic renal failure, maintain on hemodialysis. RECOMMENDATIONS: His current medications can be continued for now. He is stable from a cardiac standpoint to proceed with a cystoscopy as planned for tomorrow. Following the procedure, resumption of anticoagulant therapy with Eliquis 2.5 mg twice daily is advised. Unless other issues arise that he appears stable from a cardiac standpoint for discharge home following cystoscopy. Outpatient followup will be arranged. Jose Willams MD
[2019-01-04] MEDS: Nystatin 100,000 Units/gm Topical Pow(15 gm) TOP SCH ×2 (09:04→17:34)
[2019-01-04] MEDS ORDERED: Phenylephrine 10 mg/ml Inj ONE (12:04)
[2019-01-04] MEDS ORDERED: Etomidate 20 mg/10ml Inj IV ONE (12:04)
[2019-01-04] MEDS ORDERED: HYDROmorphone 0.5 mg/0.5 ml ISec IVP PRN (12:22)
[2019-01-04] MEDS ORDERED: Iohexol 240 (50 ml) ONE (12:27)
[2019-01-04] MEDS ORDERED: cefTRIAXone (Rocephin) 1 gm Inj ONE (12:27)
[2019-01-04] MEDS ORDERED: Sodium Chloride 0.9% 200 ML IV SCH (12:30)
[2019-01-04] MEDS ORDERED: Midazolam 2 MG/2 ML VIAL ONE (12:34)
[2019-01-04] MEDS ORDERED: Gentamicin 80 mg in 0.9% NS 80 MG/100 ML BAG IVPB ONE (12:52)
--- NOTE | 2019-01-04 15:14 | PN ---
DATE: 01/04/2019 SUBJECTIVE: The patient was seen in the dialysis unit. He is awake, he is alert, is comfortable. He complains of being weak still. He denies any chest pain. Denies any shortness of breath. PHYSICAL EXAMINATION: GENERAL: Elderly male lying in bed. VITAL SIGNS: Blood pressure 128/74, heart rate 77, respiratory rate 18, temperature 98. HEENT: Normocephalic, atraumatic, positive pallor. NECK: Supple, no JVD. LUNGS: Bilateral equal air entry, no rales, no rhonchi. CARDIAC: S1 and S2, regular rate and rhythm. No murmur or rub. ABDOMEN: Obese, distended, soft, nontender, bowel sounds present. EXTREMITIES: No lower extremity edema. LABORATORY DATA: WBC 7, hemoglobin 9.3, hematocrit 28.6, platelets 158. Sodium 140, potassium 4.3, chloride 103, CO2 26, BUN 60, creatinine 7.7, glucose 120, calcium 9, phosphorus 3, magnesium 1.7, albumin 3. CURRENT MEDICATIONS: Brovana, Insulin, Lopressor 50 every 12 hours, meropenem 250 every 12 hours, Nystatin, Os-Thai, PhosLo 667 with meals, calcitriol 0.5, Tylenol. ASSESSMENT AND PLAN: 1. Chronic kidney disease stage V, now end-stage renal disease. 2. Severe secondary hyperparathyroidism. 3. Hypocalcemia, resolved. 4. Anemia of chronic kidney disease. 5. Right staghorn calculus/recurrent urinary tract infection. 6. Hypertension. 7. Paroxysmal atrial fibrillation. 8. Status post rectal bleeding. PLAN: 1. Stable dialysis. 2. Change calcitriol to every other day. 3. The patient is scheduled for cystoscopy today. 4. Discharge planning. The patient is scheduled to receive dialysis as outpatient at [facility], Friday, Friday and Friday. Ana Ochoa MD
--- NOTE | 2019-01-04 18:48 | RAD ---
Date of service: 01/04/2019 PROCEDURE: Fluoroscopy up to 1 hr. HISTORY: Retrograde pyelogram COMPARISON: None TECHNIQUE: Standard protocol for this study/examination. FINDINGS: Total fluoroscopic time (continuous mode) utilized during the procedure 10.1 seconds. Total exam DLP: 2.72 (mGy). IMPRESSION: Less than 1 hr fluoroscopic assistance provided during performance of the procedure.
--- NOTE | 2019-01-05 00:03 | PN ---
DATE: 01/04/2019 SUBJECTIVE: The patient is seen in bed. He was seen earlier today in 253, bed 2. No fevers or chills. PHYSICAL EXAMINATION: VITAL SIGNS: Temperature is 98, blood pressure is 112/70, respiratory rate 16. HEENT: Unremarkable. NECK: Supple. LUNGS: Decreased breath sounds. HEART: Normal, S1, S2. ABDOMEN: Soft. LABORATORY DATA: Examination reveals a white count of 7000, hemoglobin of 9, platelets as noted. Review of orders reveals the patient to be on meropenem. The patient is scheduled for colonoscopy today. The patient is scheduled for a cystoscopy and bilateral retrograde pyelogram, nonfunctional right kidney stones are noted. ASSESSMENT AND PLAN: This is a 68-year-old male with a history of coronary artery disease, chronic kidney disease, recurrent urinary tract infection, right hydronephrosis, kidney stones, peripheral arterial disease, diabetes mellitus, colonic fistula, admitted with severe sepsis with Morganella morganii in the urine as the source of an acute kidney injury on top of chronic kidney injury in the patient with pyelonephritis associated kidney and urinary tract infection. Today is day #13 of meropenem, would complete 14 days of meropenem. May be able to give the meropenem tomorrow's morning dose as 500 at 10 a.m. for the entire stay if the patient is . Joe Bergman MD
[2019-01-05] MEDS: Budesonide 0.5 mg/2 ml Inhal Susp UD IH SCH ×2 (07:55→19:50)
[2019-01-05] MEDS: Arformoterol 15 mcg/2 ml Inh Sol IH SCH ×2 (07:56→19:50)
--- NOTE | 2019-01-05 08:25 | PN ---
DATE: 01/04/2019 SUBJECTIVE: The patient is 68-year-old male currently on dialysis. Nursing staff relates that there were no particular problems during the night. PHYSICAL EXAMINATION VITAL SIGNS: Show a temperature of 98 orally, his pulse is 77, his blood pressure is 128/74 and respiratory rate is 18. GENERAL: He is alert and oriented x3. LUNGS: Show diminished breath sounds at the bases. HEART: Has an irregular S1 and S2 rhythm. There is a pacemaker present. ABDOMEN: Soft, scaphoid and nontender. EXTREMITIES: Show no evidence of edema. LABORATORY DATA: Shows a WBC of 7, RBC 3.12, hemoglobin 9.3, hematocrit 28.6 and platelet count is 158. His PT is 14.5 with an INR of 1.28 and PTT is 27. Chemistry shows a sodium of 140, potassium 4.3, chloride 103, CO2 of 26, BUN of 60, creatinine of 7.7, random blood sugar is 120, his calcium is 90, phosphorus is 3 and magnesium 1.7. LFTs are normal, this is predialysis. The patient had a repeat urine culture which was negative. ASSESSMENT AND PLAN: 1. He has been cleared by Infectious Disease for cystoscopy. This as has been discussed with Infectious Disease and Nephrology as well. 2. He is on chronic dialysis three times a week for chronic renal failure. 3. He is completing a course of antibiotics for urosepsis and possible pyelonephritis. 4. Right hydronephrosis secondary stone. 5. It is recommended that he undergo right nephrectomy to reduce the risk of recurrent urinary tract infections by Infectious Disease and Nephrology. 6. He has completed his GI evaluation at this time showing diverticulosis and hemorrhoids and small rectal sinus. He is also being followed by Cardiology with his history of atrial fibrillation and remote coronary stent. 7. He has a history of peripheral vascular disease. 8. Remote history of rectal fissure. 9. He had a colostomy which was reversed. 10. He has an abdominal hernia. 11. He has a [id number] diabetes. Currently, the patient is on Brovana, sliding insulin scale, Lopressor, meropenem IV nystatin powder, Os-Thai, PhosLo, Pulmicort, Rocaltrol, Tylenol, Zofran p.r.n. All the clinical findings to date have been fully discussed with the patient. We will continue current level of supportive care. He is also working with physical therapy. Ana Frost MD
[2019-01-05] MEDS: Insulin Lispro (humaLOG) LOW Coverage SC SCH ×4 (08:31→21:10)
[2019-01-05 09:27] LABS: BASO # 0.02 K/mm3 (0.0-2.0); BASO % 0.3 % (0.0-3.0); EOS # 0.1 (0.0-0.7); EOS % 1.4 % (1.5-5.0); HEMOGLOBIN 8.8 g/dL (14.0-18.0); LYMPH # 1.3 (1.2-3.4); LYMPH % 19.3 % (22.0-35.0); MEAN CORPUSCULAR HEMOGLOBIN 29.2 pg (25.0-35.0); MEAN CORPUSCULAR HGB CONC 31.8 g/dl (31.0-37.0); MEAN PLATELET VOLUME 9.4 fl (7.0-11.0); MONO # 0.7 (0.1-0.6); MONO % 10.1 % (1.0-6.0); RBC 3.01 10^6/uL (3.5-6.1); RED CELL DISTRIBUTION WIDTH 14.2 % (11.5-14.5); URINE BILIRUBIN SMALL (NEGATIVE); URINE BLOOD LARGE (NEGATIVE); URINE GLUCOSE (UA) 100 mg/dL (NEGATIVE); URINE LEUKOCYTE ESTERASE MODERATE Leu/uL (NEGATIVE); URINE PROTEIN >=300 mg/dL (<30 mg/dL); WHITE BLOOD COUNT 6.6 10^3/uL (4.5-11.0)
[2019-01-05 09:29] LABS: URINE APPEARANCE BLOODY (CLEAR); URINE COLOR LIGHT RED (YELLOW)
[2019-01-05 09:35] LABS: URINE RBC TNTC /hpf (0-2)
[2019-01-05 09:36] LABS: URINE BACTERIA LARGE /hpf; URINE WBC TNTC /hpf (0-6)
[2019-01-05] MEDS: Nystatin 100,000 Units/gm Topical Pow(15 gm) TOP SCH ×2 (09:37→18:11)
[2019-01-05 09:43] LABS: ALB/GLOB RATIO 0.7 (1.1-1.8); ALBUMIN 2.9 g/dL (3.0-4.8); ALT/SGPT < 6 U/L (7-56); AST/SGOT 20 U/L (17-59); BLOOD UREA NITROGEN 42 mg/dL (7-21); CALCIUM 8.2 mg/dL (8.4-10.5); GFR NON-AFRICAN AMERICAN 10
--- NOTE | 2019-01-05 10:44 | RAD ---
Date of service: 01/05/2019 HISTORY: r/o sepsis COMPARISON: 12/25/2018 TECHNIQUE: Chest PA and lateral FINDINGS: LUNGS: No active pulmonary disease. PLEURA: No significant pleural effusion identified. No pneumothorax apparent. CARDIOVASCULAR: Aortic calcification Normal cardiac size. No pulmonary vascular congestion. There is a dialysis catheter and single lead pacemaker. OSSEOUS STRUCTURES: No significant abnormalities. VISUALIZED UPPER ABDOMEN: Normal. OTHER FINDINGS: None. IMPRESSION: No active disease.
--- NOTE | 2019-01-05 10:45 | PN ---
DATE: 01/05/2019 SUBJECTIVE: The patient was seen lying in bed on telemetry. He underwent cystoscopy yesterday. He has a Villalba catheter in place with some blood-tinged urine. He is currently in sinus rhythm. His current medications include Brovana, metoprolol 50 mg every 12 hours, meropenem, PhosLo, Pulmicort. PHYSICAL EXAMINATION: GENERAL: He is a middle-aged man who is comfortable at the present time. VITAL SIGNS: His blood pressure is 110/70 with a pulse of 70 and sinus, respirations are 14. He is afebrile. HEENT: No JVD. CHEST: Few scattered rhonchi. HEART: PMI displaced laterally with systolic murmur in the left sternal border. ABDOMEN: Soft with normoactive bowel sounds. Incisional hernia is present. EXTREMITIES: No edema. DIAGNOSTIC DATA: No blood work pending from this morning. IMPRESSION: 1. Paroxysmal atrial flutter fibrillation, currently in sinus rhythm. 2. Coronary artery disease status post prior percutaneous coronary intervention with no evidence of ischemia on recent stress testing. 3. Status post permanent pacemaker implant with bradycardia tachycardia syndrome. 4. Recent gram-negative urosepsis. 5. Nephrolithiasis. 6. Chronic renal failure, currently on dialysis. RECOMMENDATIONS: His current medications will continue for now. Once cleared from a urologic standpoint, anticoagulation with Eliquis 2.5 mg twice daily is advised given his recent prolonged atrial fibrillation and potential for recurrence. From a cardiac standpoint, he appears stable for discharge home once cleared from a medical and urologic standpoint. Outpatient followup will be arranged. Jose Willams MD
--- NOTE | 2019-01-05 13:44 | PN ---
DATE: 01/05/2019 SUBJECTIVE: A 68-year-old male status post cystoscopy, receiving IV meropenem for urosepsis, pyelonephritis. OBJECTIVE: VITAL SIGNS: His temperature is 98.2, his pulse is 79, his blood pressure is 111/71, respiratory rate is 20. GENERAL: The patient states that in the evening last night he was having chills, his temperature is reported as being 98. At this time, he is feeling a bit better, but feels a little fatigued. NECK: Supple. LUNGS: Show diminished breath sounds at the bases. HEART: S1, S2 rhythm. He has a pacemaker in place. ABDOMEN: Soft, scaphoid. Positive bowel sounds. He has abdominal wall hernia secondary to his prior colostomy is present. No tenderness appreciated. EXTREMITIES: Show no evidence of edema or rash. LABORATORY DATA: Shows a WBC of 6.6, RBC 3.01, hemoglobin 8.8, hematocrit 27.7, platelet count is 137. Chemistry shows a sodium of 139, potassium 4.3, chloride 102, CO2 of 28. The BUN is 42, the creatinine is 5.5. His calcium is 8.2. Random blood sugar is 106. LFTs are normal. His albumin is 2.9. Urinalysis shows large blood, positive for nitrates, moderate leukocyte esterase, large bacteria too numerous to count RBCs, too numerous to count WBCs. The patient is currently receiving IV meropenem. We will get a chest x-ray and blood cultures. I have discussed with Infectious Disease and the staff and I have also discussed with the patient. He has a history of coronary artery disease, rectal fistula urosepsis, renal calculi, chronic kidney disease, currently on dialysis, remote coronary artery disease, pacemaker. All clinical findings to this point have been discussed with the patient and with follow the patient closely. Ana Frost MD
--- NOTE | 2019-01-05 13:59 | PN ---
DATE: 01/05/2019 LOCATION: The patient is in room 263, bed 2. SUBJECTIVE: Patient is awake and alert. He states he had chills yesterday after the procedure. At this time he is feeling better. There is no fever. No chest pain. PHYSICAL EXAMINATION: VITAL SIGNS: Temperature 98, blood pressure 111/70, respiratory rate 20, heart rate 95. HEENT: Examination of HEENT is unremarkable. NECK: Supple. LUNGS: Decreased breath sounds. HEART: Normal S1, S2. ABDOMEN: Soft, nontender. LABORATORY DATA: Laboratory examination reveals the patient's white count is 6.6, hemoglobin of 8 and BUN of 42, creatinine of 5.5. Urinalysis is noted. Serology is noted. Repeat urinalysis is too numerous to count wbc's. The urine culture is negative from 12/28/2018. Review of orders reveals the patient to be on meropenem which will require renewal, which I will do. ASSESSMENT AND PLAN: This is a 68-year-old male seen earlier today in 263, bed 2 who is doing well, who had a cystoscopy yesterday. Postprocedure had chills and history of coronary artery disease, chronic kidney disease, recurrent urinary tract infection, right hydronephrosis, kidney stones, peripheral arterial disease, diabetes mellitus, colonic fistula. On this admission, the patient was admitted with severe sepsis secondary to Morganella morganii with pyelonephritis and urinary tract infection and acute kidney injury on top of chronic kidney injury. Today is day #14 of therapy, would discontinue the antibiotics after today's dose, [address] Frost has ordered blood cultures and urine cultures. We will follow those. The patient is doing well. Joe Bergman MD
--- NOTE | 2019-01-05 22:24 | PN ---
DATE: 01/05/2019 SUBJECTIVE: The patient is currently seen having been transferred to . He apparently had an episode of chills earlier today but there was no evidence for a fever spike. The patient remains on antibiotic therapy for his urinary tract infection. Arrangements are being made for him to have a right nephrectomy or a laparoscopic right nephrectomy perhaps at [facility]. Dr. Villavicencio is working on these arrangements. The patient had a cystoscopy done yesterday which showed a nonfunctioning right kidney with stones. MEDICATIONS: Medication list reviewed. The patient is currently on Brovana, sliding scale insulin, Lopressor, meropenem, Nystatin, Os-Thai, PhosLo, Pulmicort, Rocaltrol, Tylenol p.r.n. and Zofran p.r.n. OBJECTIVE PHYSICAL EXAMINATION INTAKE/OUTPUT: Intake is 1420, output is 400 mL of urine plus 1000 mL with dialysis. VITAL SIGNS: Blood pressure 135/73, temperature 98.7, respiratory rate is 18 with a pulse of 72. HEENT: Shows him to be normocephalic, atraumatic. Conjunctivae are pale. Sclerae nonicteric. NECK: Supple. No neck vein distention. CHEST: Right chest wall PermCath. CARDIOVASCULAR: Shows an irregular S1, S2 with a soft systolic murmur left lower sternal border, permanent pacemaker. No S3, no S4, no rub. LUNGS: Clear to auscultation and percussion with no rales, rhonchi or wheezing. ABDOMEN: Soft. Bowel sounds normal. No rebound, guarding or masses. He does have a large nonreducible left lower quadrant hernia. EXTREMITIES: Show no lower extremity cyanosis, clubbing or edema. He does have a PICC line in the right upper extremity. LABORATORY DATA AND IMAGING STUDIES: CBC; white blood cell count today is 6.6, hemoglobin slightly low at 8.8, platelet count is 134,000. Chemistry showed normal electrolytes, now BUN 42 with a creatinine of 5.5. Calcium is 8.2, phosphorus 3.0, magnesium 1.7. Albumin level is 2.9. Microbiology; urine cultures initially were positive for Morganella morganii. Followup urine cultures were negative. All blood cultures were negative. ASSESSMENT 1. Acute renal failure superimposed on chronic kidney disease stage V, likely with progression to end-stage renal disease. The patient is tolerating dialysis well. Electrolytes are normalized, metabolic acidosis has resolved. The patient will ultimately require an arteriovenous fistula, but this likely will not be done until he has the urinary tract issue resolved and this would require a right nephrectomy and successful completion of antibiotics for his urinary tract infections. 2. History of hypertension. Blood pressure is controlled. The patient will continue beta-gino therapy. 3. History of tachycardia with atrial fibrillation with a permanent pacemaker. The patient had been on chronic anticoagulation in the past. He is currently rate controlled with atrial fibrillation. 4. History of noninsulin-dependent diabetes mellitus. Patient remains on sliding scale insulin with good sugar control. 5. History of secondary hyperparathyroidism secondary to chronic kidney disease. The patient remains on binder therapy and a renal diet. 6. History of urinary tract infection with Morganella morganii. Discussed with Dr. Frost in detail. Complete the course of antibiotics. In all likelihood the patient will then transition over to outpatient dialysis and then from there the patient will be set up electively for a right nephrectomy. 7. Status post cystoscopy, no new findings. 8. History of peripheral vascular disease status post multiple lower extremity foot surgeries. 9. History of paraspinal abscess with history of diverticulosis, history of colectomy with colostomy, history of reversal of colostomy, all appear to be stable. The patient has a large nonreducible lower quadrant abdominal wall hernia. No surgical intervention is planned. 10. History of anemia secondary to chronic kidney disease. Hemoglobin is stable at 8.8. The patient will receive Aranesp per protocol with dialysis. 11. Possible limited gastrointestinal bleed on admission. Colonoscopy was done which showed a possible perianal sinus versus fistula. PLAN 1. Discuss with the patient. The patient is set for outpatient dialysis in [facility] He is on a Friday, Friday and Friday schedule. If the patient has dialysis on in all likelihood, he would be able to wait until next Friday for his next dialysis. 2. AV fistula plus stabilization of his urinary tract issues. 3. Duration of antibiotics as per Infectious Disease. Bryan Vail MD
[2019-01-06] MEDS ORDERED: Darbepoetin Alfa 100 mcg/ml Inj IVP ONE ×2 (06:00→08:30)
[2019-01-06 06:36] LABS: BASO # 0.02 K/mm3 (0.0-2.0); BASO % 0.3 % (0.0-3.0); EOS # 0.1 (0.0-0.7); EOS % 2.1 % (1.5-5.0); HEMOGLOBIN 8.8 g/dL (14.0-18.0); LYMPH # 1.2 (1.2-3.4); LYMPH % 17.6 % (22.0-35.0); MEAN CELL VOLUME 92.2 fl (80.0-105.0); MEAN CORPUSCULAR HEMOGLOBIN 28.7 pg (25.0-35.0); MEAN CORPUSCULAR HGB CONC 31.1 g/dl (31.0-37.0); MEAN PLATELET VOLUME 9.6 fl (7.0-11.0); MONO # 0.7 (0.1-0.6); MONO % 9.8 % (1.0-6.0); RBC 3.07 10^6/uL (3.5-6.1); RED CELL DISTRIBUTION WIDTH 14.2 % (11.5-14.5); WHITE BLOOD COUNT 6.6 10^3/uL (4.5-11.0)
[2019-01-06 06:52] LABS: CALCIUM 8.3 mg/dL (8.4-10.5)
[2019-01-06] MEDS: Arformoterol 15 mcg/2 ml Inh Sol IH SCH ×2 (07:20→20:48)
[2019-01-06] MEDS: Budesonide 0.5 mg/2 ml Inhal Susp UD IH SCH ×2 (07:20→20:48)
[2019-01-06] MEDS: Insulin Lispro (humaLOG) LOW Coverage SC SCH ×3 (08:32→17:34)
[2019-01-06] MEDS: Nystatin 100,000 Units/gm Topical Pow(15 gm) TOP SCH ×2 (13:42→17:34)
--- NOTE | 2019-01-06 13:53 | PN ---
DATE: 01/06/2019 SUBJECTIVE: The patient is seen earlier today in no acute distress, nontoxic on. OBJECTIVE: VITAL SIGNS: On exam, temperature is 97, blood pressure is 113/40, respiratory rate of 18. HEENT: Unremarkable. NECK: Supple. LUNGS: Have decreased breath sounds. HEART: Normal S1 and S2. ABDOMEN: Soft, nontender. LABORATORY EXAMINATION: Reveals a white count of 6.6, hemoglobin of 8. BUN of 53, creatinine of 6.6. Urinalysis is noted. Serology is noted. Microbiology reveals the blood cultures are negative. The repeat cultures are negative and urine cultures are negative. REVIEW OF ORDERS: Reveals the patient is still on meropenem. ASSESSMENT AND PLAN: This is a 68-year-old male seen earlier today with cystoscopy, day before yesterday had postprocedure chills. He is doing much better. Patient with coronary artery disease, chronic kidney disease, urinary tract infections which are recurrent, right hydronephrosis, kidney stones, peripheral arterial disease, diabetes mellitus, colonic fistula. On this admission, the patient is admitted with severe sepsis secondary to Morganella morganii, pyelonephritis and urinary tract infection with acute kidney injury on top of chronic kidney injury has completed 14 days of meropenem. We will discontinue the antibiotics. No further antibiotics necessary at this point. Repeat cultures are negative. The patient is at risk for developing nosocomial infections. The patient is being evaluated for possible nephrectomy for nonfunctioning kidney, which serves as a continuous source of infection. Joe Bergman MD
--- NOTE | 2019-01-06 15:03 | PN ---
DATE: 01/06/2019 SUBJECTIVE: This is a 68-year-old male, currently on dialysis. He states that he is feeling a bit better today. PHYSICAL EXAMINATION: VITAL SIGNS: Temperature 97.9, pulse 82, blood pressure 113/45, respiratory rate 18, oxygen sat on room air is reported at 94%. GENERAL: He is alert and oriented x3. NECK: Supple. There is no JVD. LUNGS: Diminished breath sounds at the bases. HEART: S1, S2 rhythm. ABDOMEN: Soft, scaphoid. Positive bowel sounds. He has an abdominal wall hernia. Has a pacemaker in place. EXTREMITIES: No evidence of edema. LABORATORY DATA: WBC 6.6, RBC 3.07, hemoglobin 8.8, hematocrit 28.3, platelet count is 159. Chemistry shows normal electrolytes. His BUN is 53. His creatinine is 6.6. Predialysis, his blood sugar is 100, his calcium is 8.3. ASSESSMENT AND PLAN: Currently, the patient is on Brovana, insulin sliding scale for his [id number] diabetes, Lopressor 50 every 12. He is on IV meropenem by Infectious Disease for his urinary tract infection and urosepsis. He is on nystatin topical powder, PhosLo 667 mg with meals, Pulmicort, Rocaltrol 0.5 mcg every other day, Tylenol 650 every 6 hours as needed for moderate pain. The patient received Aranesp 100 mcg today ordered by Renal. Urine culture is pending. He is status post cystoscopy. Villalba catheter been removed. Urology states patient may resume his Eliquis for prophylaxis for his history of paroxysmal atrial fibrillation. Urology is in the process of helping the patient make arrangements for followup with Urology in the [facility] with the intent to evaluate him for removal of his right kidney which the patient is fully aware of. We will continue current level of care. Ana Frost MD
--- NOTE | 2019-01-06 22:38 | PN ---
DATE: 01/06/2019 SUBJECTIVE: The patient is seen lying in bed. He is awake, he is alert, and he is comfortable. He denies any fevers. Denies any chills. PHYSICAL EXAMINATION: GENERAL: Elderly male, lying in bed. VITAL SIGNS: Blood pressure 110/64, heart rate 82, respiratory rate 18, and temperature 97.9. HEENT: Normocephalic, atraumatic, positive pallor. NECK: Supple, no JVD. LUNGS: Bilateral equal entry, bilateral equal expansion, no rales. CARDIAC: S1 and S2, regular rate and rhythm, no murmur, no rub. ABDOMEN: Obese, distended, soft, nontender, bowel sounds present. EXTREMITIES: No lower extremity edema. INTAKE AND OUTPUT: Not charted. LABORATORY DATA: WBC 6.6, hemoglobin 8.8, hematocrit 28, and platelets 159. Sodium 139, potassium 4.4, chloride 103, CO2 of 26, BUN 53, creatinine 6.6, glucose 100, and calcium 8.3. CURRENT MEDICATIONS: Brovana, Lopressor 50 mg every 12 hours, PhosLo with meals, calcitriol 0.5 mcg every other day, Tylenol, Zofran, Aranesp 100 mcg given today on dialysis, and meropenem discontinued yesterday. ASSESSMENT: 1. Chronic kidney disease 5, now end-stage renal disease. 2. Recurrent urinary tract infection with Morganella morganii, status post treatment for 14 days. 3. Anemia of chronic disease. 4. Secondary hyperparathyroidism. 5. Right hydronephrotic kidney with staghorn calculus, status post cystoscopy. No intervention right now. 6. Paroxysmal atrial fibrillation. PLAN: 1. Stable dialysis today. 2. The patient is done with the antibiotic therapy. 3. Continue calcitriol and phosphate binders. 4. The patient is scheduled for outpatient dialysis at [facility] Friday, Friday and Friday. 5. Discharge. The patient is stable for discharge from the renal standpoint. Ana Ochoa MD
[2019-01-07] MEDS: Budesonide 0.5 mg/2 ml Inhal Susp UD IH SCH (07:32)
[2019-01-07] MEDS: Arformoterol 15 mcg/2 ml Inh Sol IH SCH (07:32)
[2019-01-07] MEDS: Insulin Lispro (humaLOG) LOW Coverage SC SCH (07:34)
[2019-01-07] MEDS: Nystatin 100,000 Units/gm Topical Pow(15 gm) TOP SCH (09:36)
[2019-01-07 09:38] VITALS: BP 107/64; PULSE 69
[2019-01-07 10:03] VITALS: RESP 20; TEMP 98; O2SAT 93
--- NOTE | 2019-01-07 14:14 | PN ---
DATE: 01/07/2019 SUBJECTIVE: The patient is in bed, in no acute distress, nontoxic. No fevers. No abdominal pain, diarrhea or constipation. PHYSICAL EXAMINATION: VITAL SIGNS: On exam, temperature is 98, blood pressure is 107/60, respiratory rate of 80. HEENT: Examination of HEENT is unremarkable. NECK: Supple. LUNGS: Have decreased breath sounds. HEART: Normal S1, S2. ABDOMEN: Soft. LABORATORY DATA: Laboratory examination reveals a white count of 6.6, hemoglobin of 8, platelets of 159 and BUN of 53, creatinine 6.6. Urinalysis is noted which is reviewed. Microbiology is reviewed. Review of orders, the patient is off of antibiotics. ASSESSMENT AND PLAN: A 68-year-old who is seen earlier today. The patient is doing well with a history of coronary artery disease, chronic kidney disease, recurrent urinary tract infections, hydronephrosis and kidney stones, peripheral arterial disease, diabetes mellitus, colonic fistulas, admitted with severe sepsis secondary to Morganella morganii, pyelonephritis, urinary tract infection, acute kidney injury on top of chronic kidney injury, has completed 14 days of meropenem, currently now off of antibiotics, afebrile... We will follow with you. Joe Bergman MD
--- NOTE | 2019-01-07 20:20 | PN ---
DATE: 01/07/2019 SUBJECTIVE: The patient was seen lying in bed. He is awake, he is alert, he is comfortable. He does not appear to be in any kind of distress. PHYSICAL EXAMINATION VITAL SIGNS: Blood pressure 107/64, heart rate 69, respiratory rate 18, and temperature 98. HEENT: Normocephalic, atraumatic, positive pallor. NECK: Supple, no JVD. LUNGS: Bilateral equal entry, bilateral equal expansion. No rales. CARDIAC: S1, S2, regular rate and rhythm. No murmur, no rub. ABDOMEN: Obese, distended, soft, nontender, bowel sounds present. EXTREMITIES: No lower extremity edema. LABORATORY DATA: WBC 6.6, hemoglobin 8.8, hematocrit 28, platelets 159. Sodium 139, potassium 4.4, chloride 103, CO2 of 26, BUN 53, creatinine 6.6, glucose 100, calcium 8.3, phosphorus 4.1. Blood cultures from 01/05/2019, no growth. Urine culture from 01/05/2019, no growth. MEDICATIONS: Brovana, Eliquis 2.5 mg b.i.d., insulin, Lopressor 50 mg every 12 hours, PhosLo, calcitriol, Tylenol, Zofran. ASSESSMENT 1. End-stage renal disease, now on dialysis Friday, Friday and Friday. 2. Anemia of chronic disease. 3. Secondary hyperparathyroidism. 4. Hypocalcemia. 5. Recurrent urinary tract infection, with Morganella morganii, status post antibiotic treatment. 6. Paroxysmal atrial fibrillation. 7. Rectal bleeding. PLAN 1. The patient has completed antibiotic treatment. 2. Stable dialysis yesterday. 3. Continue Rocaltrol and PhosLo. 4. Continue Lopressor. 5. Outpatient dialysis as Friday, Friday and Friday. Ana Ochoa MD
== END 2019-01-07 15:33 | disposition home or self-care (01) | DRG 871 ==
LOC: ED 10:16 → ERH 12:11 → CCU 14:35 → 2RNO 12-28 15:33 → 5RNO 01-05 14:48
PROVIDERS: ADMIT Internal Medicine; ATTEND Internal Medicine
PROC: 30233N1 Transfusion of Nonautologous Red Blood Cells into Peripheral Vein, Percutaneous Approach (ICD-10-PCS; 2018-12-24)
PROC: 02H633Z Insertion of Infusion Device into Right Atrium, Percutaneous Approach (ICD-10-PCS; 2018-12-25)
PROC: B543ZZA Ultrasonography of Right Jugular Veins, Guidance (ICD-10-PCS; 2018-12-25)
PROC: 5A1D70Z Performance of Urinary Filtration, Intermittent, Less than 6 Hours Per Day (ICD-10-PCS; 2018-12-25)
PROC: 02HV33Z Insertion of Infusion Device into Superior Vena Cava, Percutaneous Approach (ICD-10-PCS; 2018-12-25)
PROC: B54MZZA Ultrasonography of Right Upper Extremity Veins, Guidance (ICD-10-PCS; 2018-12-25)
PROC: 5A1D70Z Performance of Urinary Filtration, Intermittent, Less than 6 Hours Per Day (ICD-10-PCS; 2018-12-26)
PROC: 5A1D70Z Performance of Urinary Filtration, Intermittent, Less than 6 Hours Per Day (ICD-10-PCS; 2018-12-28)
PROC: 5A1D70Z Performance of Urinary Filtration, Intermittent, Less than 6 Hours Per Day (ICD-10-PCS; 2018-12-30)
PROC: 5A1D70Z Performance of Urinary Filtration, Intermittent, Less than 6 Hours Per Day (ICD-10-PCS; 2019-01-01)
PROC: 0DJD8ZZ Inspection of Lower Intestinal Tract, Via Natural or Artificial Opening Endoscopic (ICD-10-PCS; principal; 2019-01-01 12:15)
PROC: BT141ZZ Fluoroscopy of Kidneys, Ureters and Bladder using Low Osmolar Contrast (ICD-10-PCS; 2019-01-04)
PROC: 5A1D70Z Performance of Urinary Filtration, Intermittent, Less than 6 Hours Per Day (ICD-10-PCS; 2019-01-04)
PROC: 5A1D70Z Performance of Urinary Filtration, Intermittent, Less than 6 Hours Per Day (ICD-10-PCS; 2019-01-06)
DX: A41.9 Sepsis, unspecified organism (principal); N18.6 End stage renal disease; K92.1 Melena; N17.9 Acute kidney failure, unspecified; N39.0 Urinary tract infection, site not specified; E87.2 Acidosis; N25.81 Secondary hyperparathyroidism of renal origin; I48.1 Persistent atrial fibrillation; I48.92 Unspecified atrial flutter; K63.2 Fistula of intestine; I12.0 Hypertensive chronic kidney disease with stage 5 chronic kidney disease or end stage renal disease; N13.6 Pyonephrosis; R65.20 Severe sepsis without septic shock; N31.9 Neuromuscular dysfunction of bladder, unspecified; E86.0 Dehydration; E86.1 Hypovolemia; E11.51 Type 2 diabetes mellitus with diabetic peripheral angiopathy without gangrene; E11.22 Type 2 diabetes mellitus with diabetic chronic kidney disease; I25.10 Atherosclerotic heart disease of native coronary artery without angina pectoris; E83.39 Other disorders of phosphorus metabolism; I48.0 Paroxysmal atrial fibrillation; D63.1 Anemia in chronic kidney disease; E83.51 Hypocalcemia; K64.9 Unspecified hemorrhoids; K57.90 Diverticulosis of intestine, part unspecified, without perforation or abscess without bleeding; I34.0 Nonrheumatic mitral (valve) insufficiency; J44.9 Chronic obstructive pulmonary disease, unspecified; D69.6 Thrombocytopenia, unspecified; K46.9 Unspecified abdominal hernia without obstruction or gangrene; B96.89 Other specified bacterial agents as the cause of diseases classified elsewhere; Z99.2 Dependence on renal dialysis; Z79.4 Long term (current) use of insulin; Z79.899 Other long term (current) drug therapy; Z95.5 Presence of coronary angioplasty implant and graft; Z78.1 Physical restraint status; Z79.01 Long term (current) use of anticoagulants; Z87.891 Personal history of nicotine dependence; Z86.718 Personal history of other venous thrombosis and embolism; Z89.429 Acquired absence of other toe(s), unspecified side; Z95.0 Presence of cardiac pacemaker

== ENCOUNTER 2019-01-23 10:26 | Outpatient (CLI) | payer MEDICARE | END 2019-01-23 10:27 | disposition home or self-care (01) | LOC: CARDIO 10:26 ==

== ENCOUNTER 2019-01-28 06:37 | Outpatient (CLI) | payer MEDICARE | END 2019-01-28 06:38 | disposition home or self-care (01) | LOC: LAB 06:37 | DX: N18.9 Chronic kidney disease, unspecified (principal) ==

== ENCOUNTER 2019-02-09 13:32 | Inpatient (IN) | payer MEDICARE ==
[2019-02-09 13:41] VITALS: BMI 26.5
[2019-02-09 14:22] LABS: BASO # 0.01 K/mm3 (0.0-2.0); BASO % 0.1 % (0.0-3.0); EOS # 0.1 (0.0-0.7); EOS % 0.7 % (1.5-5.0); HEMOGLOBIN 12.4 g/dL (14.0-18.0); LYMPH # 0.7 (1.2-3.4); LYMPH % 6.8 % (22.0-35.0); MEAN CELL VOLUME 92.1 fl (80.0-105.0); MEAN CORPUSCULAR HEMOGLOBIN 29.7 pg (25.0-35.0); MEAN CORPUSCULAR HGB CONC 32.3 g/dl (31.0-37.0); MEAN PLATELET VOLUME 9.7 fl (7.0-11.0); MONO # 1.1 (0.1-0.6); MONO % 11.4 % (1.0-6.0); RBC 4.17 10^6/uL (3.5-6.1); RED CELL DISTRIBUTION WIDTH 16.2 % (11.5-14.5); WHITE BLOOD COUNT 9.9 10^3/uL (4.5-11.0)
--- NOTE | 2019-02-09 14:31 | ED PDOC ---
Arrival/HPI - General Chief Complaint: Back Pain Historian: Patient - History of Present Illness Narrative History of Present Illness (Text): 02/09/19 14:29 68 year old male, whose past medical history includes coronary artery disease, CKD, neurogenic bladder, recurrent UTI's, right hydronephrosis w/ stones, PVD, diabetes, colonic fistula, hernia, and colostomy, presents to the emergency department sent in by Dr. Ochoa for evaluation of left flank pain that began today associated with dysuria. Patient was recently admitted last month for urosepsis. Patient denies any fevers, chills, chest pain, shortness of breath, nausea, vomiting, diarrhea, back pain, neck pain, headache, dizziness, or any other complaint. PMD: Dr. Frost GI: Dr. Veliz Time/Duration: Other (today) Symptom Onset: Gradual Symptom Course: Unchanged Activities at Onset: Light Context: Home Past Medical History - Provider Review Nursing Documentation Reviewed: Yes - Past History Past History: No Previous - Infectious Disease Hx of Infectious Diseases: None - Tetanus Immunization Tetanus Immunization: Unknown - Cardiac Hx Cardiac Disorders: Yes (afib) Hx Pacemaker: Yes (R chest) - Pulmonary Hx Respiratory Disorders: Yes Hx Chronic Obstructive Pulmonary Disease (COPD): Yes - Neurological Hx Paralysis: No - HEENT Hx HEENT Disorder: Yes (wears glasses) - Renal Hx Renal Disorder: Yes Hx Dialysis: Yes (MWF) Type of Dialysis Access: R chest udall Date of Last Dialysis Treatment: 02/08/19 Hx Kidney Stones: Yes Hx Renal Failure: Yes - Endocrine/Metabolic Hx Diabetes Mellitus Type 2: Yes - Hematological/Oncological Hx Blood Transfusions: Yes Hx Blood Transfusion Reaction: No - Integumentary Hx Dermatological Disorder: Yes (candidiasis in groin, cystitis) - Musculoskeletal/Rheumatological Hx Musculoskeletal Disorders: Yes - Gastrointestinal Hx Gastrointestinal Disorders: Yes Hx Colostomy: Yes (reversed about 3 yrs ago) Hx Diverticulitis: Yes Other/Comment: hx of anal fistula had sx, developed abd hernia after colostomy reversal - Genitourinary/Gynecological Hx Genitourinary Disorders: Yes Hx Urinary Tract Infection: Yes (recurrent) - Psychiatric Hx Emotional Abuse: No Hx Physical Abuse: No Hx Substance Use: No - Surgical History Other/Comment: R chest udall. Colostomy reversal - Anesthesia Hx Anesthesia: Yes Hx Anesthesia Reactions: No Hx Malignant Hyperthermia: No - Suicidal Assessment Feels Threatened In Home Enviroment: No Family/Social History - Physician Review Nursing Documentation Reviewed: Yes Family/Social History: No Known Family HX Smoking Status: Current Some Days Smoker Hx Alcohol Use: Yes (occasional beer) Hx Substance Use: No Hx Substance Use Treatment: No Allergies/Home Meds Allergies/Adverse Reactions: Allergies ceftriaxone sodium [From Rocephin] Allergy (Intermediate, Verified 12/23/18 14:22) ITCHING Home Medications: Home Meds Medication Instructions Recorded Confirmed Famotidine [Pepcid] 20 mg PO DAILY 03/12/18 12/23/18 Multivitamin [Daily Multiple 1 tab PO DAILY 12/08/18 12/23/18 Vitamin] Review of Systems - Physician Review All systems were reviewed & negative as marked: Yes - Review of Systems Constitutional: absent: Fevers, Other (chills) Respiratory: absent: SOB Cardiovascular: absent: Chest Pain Gastrointestinal: Abdominal Pain. absent: Diarrhea, Nausea, Vomiting Genitourinary Male: Dysuria. absent: Frequency, Hematuria Musculoskeletal: absent: Back Pain, Neck Pain Neurological: absent: Headache, Dizziness Physical Exam Vital Signs Reviewed: Yes Vital Signs Temp Pulse Resp BP Pulse Ox 02/09/19 14:16 98 H 18 140/92 H 96 02/09/19 13:46 99.5 F 118 H 18 124/85 95 Temperature: Afebrile Blood Pressure: Normal Pulse: Tachycardic Respiratory Rate: Normal Appearance: Positive for: Well-Appearing, Non-Toxic, Comfortable Pain Distress: None Mental Status: Positive for: Alert and Oriented X 3 - Systems Exam Head: Present: Atraumatic, Normocephalic Pupils: Present: PERRL Extroacular Muscles: Present: EOMI Conjunctiva: Present: Normal Mouth: Present: Moist Mucous Membranes Neck: Present: Normal Range of Motion Respiratory/Chest: Present: Clear to Auscultation, Good Air Exchange. No: Respiratory Distress, Accessory Muscle Use Cardiovascular: Present: Regular Rate and Rhythm, Normal S1, S2. No: Murmurs Abdomen: No: Tenderness, Distention, Peritoneal Signs Back: Present: CVA Tenderness (left cva tenderness) Upper Extremity: Present: Normal Inspection. No: Cyanosis, Edema Lower Extremity: Present: Normal Inspection. No: Edema Neurological: Present: GCS=15, Speech Normal Skin: Present: Warm, Dry, Normal Color. No: Rashes Psychiatric: Present: Alert, Oriented x 3, Normal Insight, Normal Concentration Medical Decision Making ED Course and Treatment: 02/09/19 14:32 Impression: 68 year old male sent in by Dr. Ochoa presents complaining of left flank pain that began today associated with dysuria. Plan: -- CT Abd & pelvis w/o contrast -- Labs -- UA -- Urine Culture -- reassess and dispo Prior Visits: Notes and results from previous visits were reviewed. Progress Notes: PROCEDURE: CT Abdomen and Pelvis without intravenous contrast Dictator : Corbin Matos MD Car Rental Sales Assistant : Report Date : 02/09/2019 14:54:10 IMPRESSION: There is a large stone in the right renal pelvis measuring 13 x 18 mm in the coronal plane. There is a collection of nonobstructing stones in the lower pole of the right kidney measuring 17 mm in diameter. Chronic perinephric stranding is seen around the renal pelvis. There is chronic moderate to severe left-sided hydronephrosis and hydroureter with no evidence of an obstructing stone. There is severe mural thickening throughout the bladder. This could be due to chronic outlet obstruction or cystitis. 02/09/19 15:[address] Frost who is aware and agrees with the plan. Accepts patient into his service for full admission to med-surg for possible Pyelonephritis. Request consult for Dr. Rivera for antibiotic recommendations. 02/09/19 16:[address] Rivera who reports he will take care of putting orders in for antibiotics. 02/09/19 16:45 Dr. Frost came to evaluate patient. Reports he spoke to Dr. Rivera who wants patient to be started on Meropenem 250mg IVPB. - Lab Interpretations I have reviewed the lab results: Yes - RAD Interpretation Radiology Orders: 02/09/19 14:03 ABD & PELVIS W/O PO OR IV CONT [CT] Stat Commissioning Agent: Radiologist - Scribe Statement The provider has reviewed the documentation as recorded by the Scribe Jeannie Callaway Provider Scribe Attestation: All medical record entries made by the Scribe were at my direction and personally dictated by me. I have reviewed the chart and agree that the record accurately reflects my personal performance of the history, physical exam, medical decision making, and the department course for this patient. I have also personally directed, reviewed, and agree with the discharge instructions and disposition. Disposition/Present on Arrival - Present on Arrival History of DVT/PE: No History of Uncontrolled Diabetes: No Urinary Catheter: No History of Decub. Ulcer: No History Surgical Site Infection Following: None - Disposition Disposition: HOSPITALIZED
[2019-02-09 14:35] LABS: ALBUMIN 4.2 g/dL (3.0-4.8); CALCIUM 8.5 mg/dL (8.4-10.5)
--- NOTE | 2019-02-09 14:57 | CT ---
Date of service: 02/09/2019 PROCEDURE: CT Abdomen and Pelvis without intravenous contrast HISTORY: left flank pain COMPARISON: 12/23/2018 TECHNIQUE: Without contrast.. Contrast dose: Radiation dose: Total exam DLP = 917.3 mGy-cm. This CT exam was performed using one or more of the following dose reduction techniques: Automated exposure control, adjustment of the mA and/or kV according to patient size, and/or use of iterative reconstruction technique. FINDINGS: LOWER THORAX: Unremarkable. LIVER: Unremarkable. No gross lesion or ductal dilatation. GALLBLADDER AND BILE DUCTS: Unremarkable. PANCREAS: Unremarkable. No gross lesion or ductal dilatation. SPLEEN: Unremarkable. ADRENALS: Unremarkable. No mass. KIDNEYS AND URETERS: There is a large stone in the right renal pelvis measuring 13 x 18 mm in the coronal plane. There is a collection of nonobstructing stones in the lower pole of the right kidney measuring 17 mm in diameter. Chronic perinephric stranding is seen around the renal pelvis. There is chronic moderate to severe left-sided hydronephrosis and hydroureter with no evidence of an obstructing stone. VASCULATURE: Unremarkable. No aortic aneurysm. Aortic calcifications BOWEL: Unremarkable. No obstruction. No gross mural thickening. There is marked thinning and protrusion of the anterior abdominal wall without a discrete defect. There is no obstruction. APPENDIX: Unremarkable. Normal appendix. PERITONEUM: Unremarkable. No free fluid. No free air. LYMPH NODES: Unremarkable. No enlarged lymph nodes. BLADDER: There is severe mural thickening throughout the bladder. This could be due to chronic outlet obstruction or cystitis. REPRODUCTIVE: Unremarkable. BONES: No acute fracture. OTHER FINDINGS: None. IMPRESSION: There is a large stone in the right renal pelvis measuring 13 x 18 mm in the coronal plane. There is a collection of nonobstructing stones in the lower pole of the right kidney measuring 17 mm in diameter. Chronic perinephric stranding is seen around the renal pelvis. There is chronic moderate to severe left-sided hydronephrosis and hydroureter with no evidence of an obstructing stone. There is severe mural thickening throughout the bladder. This could be due to chronic outlet obstruction or cystitis.
[2019-02-09 15:49] LABS: URINE APPEARANCE SLIGHT-CLOUDY (CLEAR); URINE BILIRUBIN NEGATIVE (NEGATIVE); URINE BLOOD LARGE (NEGATIVE); URINE COLOR LIGHT RED (YELLOW); URINE GLUCOSE (UA) NEGATIVE (NEGATIVE); URINE LEUKOCYTE ESTERASE LARGE Leu/uL (NEGATIVE); URINE PROTEIN >=300 mg/dL (<30 mg/dL); URINE UROBILINOGEN 0.2 E.U./dL (<1 E.U./dL)
[2019-02-09] MEDS ORDERED: Morphine 4 mg/ml ISec IVP STA (15:56)
[2019-02-09 15:57] LABS: URINE BACTERIA LARGE /hpf; URINE RBC TNTC /hpf (0-2); URINE WBC TNTC /hpf (0-6)
[2019-02-09] MEDS ORDERED: Morphine 2 mg/ml ISec IVP STA (20:03)
--- NOTE | 2019-02-09 21:21 | CP.PCM.PN ---
Subjective - Date & Time of Evaluation Date of Evaluation: 02/09/19 Time of Evaluation: 21:20 - Subjective Subjective: TBD Pulling Getting out of bed. Objective - Vital Signs/Intake and Output Vital Signs (last 24 hours): Temp Pulse Resp BP Pulse Ox 98.0 F 88 18 141/81 98 02/09/19 17:18 02/09/19 17:18 02/09/19 17:18 02/09/19 17:18 02/09/19 17:18 - Medications Medications: Current Medications Apixaban (Eliquis) 2.5 mg PO BID [facility]; Protocol Last Admin: 02/09/19 20:28 Dose: 2.5 mg Calcium Acetate (Phoslo) 667 mg PO WM N[facility]HA Digoxin (Lanoxin) 0.25 mg PO MWF [facility] Meropenem 250 mg/ Sodium (Chloride) 100 mls @ 100 mls/hr IVPB Q12H [facility]; Protocol Stop: 02/16/19 20:01 Lorazepam (Ativan) 0.5 mg IVP ONCE ONE; Protocol Stop: 02/09/19 21:19 Metoprolol Tartrate (Lopressor) 50 mg PO BID [facility] - Labs Labs: 02/09/19 14:00 02/09/19 14:00
[2019-02-09] MEDS ORDERED: Magnesium Sulfate 1 gm in D5W 1 GM/100 ML BAG IVPB ONE (21:22)
--- NOTE | 2019-02-10 01:49 | HP ---
DATE OF EXAM: 02/09/2019 HISTORY OF PRESENT ILLNESS: A 68-year-old man who was referred to the emergency room by his float operator, Dr. Ochoa after he advised her that he was having left flank pain associated with dysuria. PAST MEDICAL HISTORY: The patient has a past medical history of urosepsis, right hydronephrosis with ureteral stones, peripheral vascular disease and coronary artery disease with stents, paroxysmal atrial fibrillation, chronic kidney disease on dialysis three times a week, a history of a colorectal fistula and abdominal hernia status post repair of a colostomy. ALLERGIES: TO ROCEPHIN. SOCIAL HISTORY: He is a nonsmoker, nondrinker, non-drug user. HOME MEDICATIONS: He states that his active medications are Eliquis 2.5 mg b.i.d., digoxin 0.25 mg Friday, Friday, Friday, Lopressor 50 mg b.i.d. and PhosLo 667 mg with meals. REVIEW OF SYSTEMS: The 12 systems are reviewed. Pertinent findings as stated in the physical exam. PHYSICAL EXAMINATION VITAL SIGNS: He has a temperature orally of 99.5. His pulse is 118. His blood pressure is 124/85. His oxygen saturation is 95% on room air with a respiratory rate of 18. GENERAL: He is alert and oriented x3. NECK: Supple. LUNGS: Clear. HEART: In S1, S2 rhythm. He has a pacemaker in place. ABDOMEN: Soft with positive bowel sounds. He has an abdominal wall hernia. EXTREMITIES: Show no evidence of edema. DIAGNOSTICS: He had a CT scan of the abdomen and pelvis, which shows a large stone in the right renal pelvis measuring 13 x 18 mm in the coronal plane. There is a collection of nonobstructing stones in the lower pole of the right kidney measuring 17 mm in diameter. There is chronic perinephric stranding is seen around the renal pelvis. There is a chronic [id number] left-sided hydronephrosis and hydroureter with no evidence of an obstructing stone and there is severe mural thickening throughout the bladder wall. LABORATORY DATA: Shows a WBC of 9.9, RBC 4.17, hemoglobin 12.4, hematocrit 38.4, platelet count is 205,000. Chemistry shows his sodium is 137, potassium is 5.4, chloride 97. The BUN is 37. The creatinine is 4.8, sugar is 135, calcium is 8.5, magnesium is 1.6. LFTs are normal. His lipase is normal. His urine shows large leukocyte esterase, too numerous to count rbcs, too numerous to count wbcs, large urine bacteria, large blood. His digoxin level is 1.1. IMPRESSION AND PLAN: A 68-year-old male on dialysis with dysuria and flank pain on the left with a history of renal stones and hydronephrosis. 1. Rule out possible urosepsis. 2. Chronic renal failure. 3. History of paroxysmal atrial fibrillation and coronary disease. The patient will be admitted with evaluations by Infectious Disease, pancultured being done and antibiotics to be initiated and be followed by Nephrology as well as by Infectious Disease. Ana Frost MD
[2019-02-10] MEDS ORDERED: Digoxin 250 mcg (0.25 mg) Tab PO SCH (14:00)
[2019-02-10 18:01] VITALS: PULSE 110
--- NOTE | 2019-02-10 19:15 | PN ---
DATE: 02/10/2019 SUBJECTIVE: A 68-year-old male admitted to [facility] with complaints of left flank pain and dysuria. The patient states that this morning he is feeling a bit more comfortable with less left flank pain. PHYSICAL EXAMINATION: VITAL SIGNS: His temperature is 99.2 orally, his pulse is 109, and his blood pressure is 106/72. GENERAL: He is alert and oriented x3. NECK: Supple. No JVD. LUNGS: Clear. HEART: S1 and S2 rhythm. He has a pacemaker in place. ABDOMEN: Soft, positive bowel sounds. He has an abdominal wall hernia status post repair of a colostomy. EXTREMITIES: Show no evidence of edema. ASSESSMENT AND PLAN: 1. Currently, the patient has been placed on meropenem pending results of blood and urine cultures, which had been requested. 2. We will need to discuss with Infectious Disease probable course of antibiotic therapy as the patient was potentially scheduled for nephrectomy next week and currently he is on Eliquis, which will need to be stopped before the surgery. Nephrology consult has been requested as the patient has chronic renal disease on dialysis 3 times a week. Ana Frost MD
--- NOTE | 2019-02-11 05:56 | CON ---
DATE: 02/10/2019 REASON FOR CONSULTATION: Left flank pain, dysuria, foul-smelling urine. HISTORY OF PRESENT ILLNESS: A 68-year-old male well known to me from outpatient hemodialysis. The patient called yesterday complaining of severe sharp, shooting pain in the left flank. He also complained of burning in the urine. He complained of some cloudiness to the urine. The patient was advised to come to the emergency room. In the emergency room, he was found to have a low-grade temperature of 99.5 and normotensive with a blood pressure of 124/85. His urinalysis showed pH of 7, it was cloudy, protein of greater than 300, large blood, large leukocyte esterase, and too numerous to count wbc's. The patient has a history of left hydronephrosis, right staghorn calculi. The patient has a history of recurrent UTIs. The patient was admitted for possible pyelonephritis. PAST MEDICAL AND SURGICAL HISTORY: Left hydronephrosis, right staghorn calculus, recurrent UTI, resistant UTI, hypertension, diabetes, paroxysmal AFib, ESRD, neurogenic bladder. FAMILY HISTORY: Hypertension. SOCIAL HISTORY: No smoking, no alcohol use, no IV drug abuse. ALLERGIES: CEFTRIAXONE. MEDICATIONS AT HOME: Digoxin 250 Friday, Friday, Friday; Lopressor 50 every 12 hours, calcium acetate, and Eliquis 2.5 b.i.d. REVIEW OF SYSTEMS: All systems are reviewed, pertinent positives as mentioned in the history of presenting illness, rest unremarkable. PHYSICAL EXAMINATION: GENERAL: Elderly male lying in bed. VITAL SIGNS: Blood pressure 99/55, heart rate 105, respiratory rate 16, temperature 98, T-max is 99.5. HEENT: Normocephalic, atraumatic. Positive pallor. NECK: Supple, no JVD. LUNGS: Bilateral equal air entry, bilateral equal expansion. CARDIAC: S1, S2. Regular rate and rhythm, no murmur, no rub. ABDOMEN: Distended, soft, bowel sounds present. EXTREMITIES: No lower extremity edema. LABORATORY DATA: WBC 9.9, hemoglobin 12, hematocrit 38, platelets 205. Sodium 137, potassium 5.4, chloride 97, CO2 of 25, BUN 37, creatinine 4.8, glucose 135, calcium 8.5, magnesium 1.6, albumin 4.2. Urinalysis, light red, slightly cloudy, pH 7, specific gravity 1.020, protein greater than 300, blood large, leukocyte esterase large, wbc's too numerous to count. Digoxin 1.1. CURRENT MEDICATIONS: Eliquis, digoxin, Lopressor 50 b.i.d., meropenem 250 every 12 hours, PhosLo. ASSESSMENT: 1. End-stage renal disease. 2. Hyperkalemia. 3. ? Urosepsis/pyelonephritis. 4. Paroxysmal atrial fibrillation. 5. Left hydronephrosis/right staghorn calculi. PLAN: 1. Dialysis today. 2. Agree with antibiotics. 3. Follow up urine cultures. 4. Continue phosphate binders. 5. ID evaluation. Ana Ochoa MD
--- NOTE | 2019-02-11 07:16 | CON ---
DATE: 02/10/2019 LOCATION: The patient seen in room 568, bed 2. CHIEF COMPLAINT: Left flank pain times 1 day duration. HISTORY OF PRESENT ILLNESS: This is a 68-year-old male with congestive heart failure, coronary artery disease, hypertension, neurogenic bladder, peripheral vascular disease, diabetes, end-stage renal disease on hemodialysis, kidney stones, cerebrovascular accident, chronic obstructive lung disease, recurrent urinary tract infections, colonic fistula, and hernia, who was admitted with left flank pain, low-grade fevers and chills. No chest pain, no abdominal pain and no diarrhea or constipation. REVIEW OF SYSTEMS: Reveals a 12-point review of systems performed. PAST MEDICAL HISTORY: Significant for heart failure, diabetes, hypertension, coronary artery disease, end-stage renal disease, kidney stones and cerebrovascular accident. The patient is already with dialysis and recurrent urinary tract infections, chronic obstructive lung disease. PAST SURGICAL HISTORY: Significant for pacemaker and coronary artery bypass graft, tonsillectomy, colostomy. ALLERGIES: THE PATIENT IS ALLERGIC TO CEFTRIAXONE. MEDICATIONS AT HOME: Reviewed. PHYSICAL EXAMINATION VITAL SIGNS: The patient's temperature is 99.2, heart rate of 109, respiratory rate of 20 and blood pressure of 120/70. HEENT: Unremarkable. NECK: Supple. LUNGS: Decreased breath sounds. HEART: Normal S1 and S2. ABDOMEN: Soft, nontender. No rebound or guarding. No masses. LABORATORY DATA: Reveals a white count of 9.9, hemoglobin 12, platelets count is 205. Chemistry reveals a creatinine of 4.8. Urinalysis is noted, too numerous to count WBCs and is noted. Microbiology reveals a gram-negative kirti in the urine. Blood cultures show no growth. ASSESSMENT AND PLAN: This is a 68-year-old with a left pyelonephritis with gram-negative kirti. We will treat the patient with meropenem. The patient's CAT scan of the abdomen and pelvis is reviewed and noted and waiting for identification since there is a gram-negative kirti in the urine and we will follow with you. Joe Bergman MD
[2019-02-11 07:42] VITALS: BP 102/70; PULSE 90; RESP 18; TEMP 98; O2SAT 97
[2019-02-11 07:43] LABS: BASO # 0.01 K/mm3 (0.0-2.0); BASO % 0.1 % (0.0-3.0); EOS # 0.2 (0.0-0.7); EOS % 2.7 % (1.5-5.0); HEMOGLOBIN 10.7 g/dL (14.0-18.0); LYMPH # 0.9 (1.2-3.4); LYMPH % 11.1 % (22.0-35.0); MEAN CORPUSCULAR HGB CONC 30.8 g/dl (31.0-37.0); MEAN PLATELET VOLUME 9.6 fl (7.0-11.0); MONO # 0.6 (0.1-0.6); MONO % 7.1 % (1.0-6.0); RBC 3.69 10^6/uL (3.5-6.1); RED CELL DISTRIBUTION WIDTH 15.6 % (11.5-14.5); WHITE BLOOD COUNT 8.5 10^3/uL (4.5-11.0)
[2019-02-11 08:08] LABS: ALB/GLOB RATIO 0.9 (1.1-1.8); ALBUMIN 3.7 g/dL (3.0-4.8); ALT/SGPT < 6 U/L (7-56); AST/SGOT 15 U/L (17-59); BLOOD UREA NITROGEN 34 mg/dL (7-21); CALCIUM 8.4 mg/dL (8.4-10.5); GFR NON-AFRICAN AMERICAN 10
--- NOTE | 2019-02-11 12:31 | PN ---
DATE: 02/11/2019 SUBJECTIVE: The patient is a 68-year-old male resting in bed comfortably this morning. Nursing staff relates that there were no particular problems during the night. PHYSICAL EXAMINATION: VITAL SIGNS: His temperature is 98. His pulse is 90. His blood pressure is 102/70. GENERAL: He is alert and oriented x3. NECK: Supple. LUNGS: Clear. ABDOMEN: Evidence of his abdominal wall hernia. HEART: S1, S2 rhythm. EXTREMITIES: No evidence of edema. LABORATORY DATA: WBC of 8.5, RBC 3.69, hemoglobin 10.7, hematocrit is 34.7, platelet count is 164. Chemistry shows sodium 138, potassium 4.5. His chloride is 100. His BUN is 34. His creatinine is 5.9. His LFTs are normal. ASSESSMENT AND PLAN: The patient is currently receiving intravenous antibiotics for urosepsis picture. He is on dialysis three times a week, being followed by Nephrology. We are awaiting results of his microbiological studies. Today, his blood cultures are negative. He is tentatively scheduled when cleared for a right nephrectomy. We will continue current level of care. Ana Frost MD
--- NOTE | 2019-02-11 19:13 | PN ---
DATE: 02/11/2019 SUBJECTIVE: The patient is seen sitting in bed. He is eating lunch. He is not in any distress. PHYSICAL EXAMINATION GENERAL: Elderly male sitting in bed. VITAL SIGNS: Blood pressure 102/70, heart rate 90, respiratory rate 18, temperature 98. HEENT: Normocephalic, atraumatic, positive pallor. NECK: Supple, no JVD. LUNGS: Bilateral equal entry, bilateral equal expansion. CARDIAC: S1 and S2, regular rate and rhythm, no murmur, no rub. ABDOMEN: Obese, distended, soft, nontender, bowel sounds present. EXTREMITIES: No lower extremity edema. LABORATORY DATA: WBC 8.5, hemoglobin 10.7, hematocrit 34.7, platelets 164. Sodium 138, potassium 4.5, chloride 100, CO2 of 25, BUN 34, creatinine 5.9, glucose 133, calcium 8.4, AST 15, ALT less than 6. Urine culture E-coli which is pansensitive. CURRENT MEDICATIONS: Cipro 250 every 12 hours, Eliquis 2.5 b.i.d. on hold, Lanoxin 0.25, Lopressor 50 b.i.d., PhosLo. ASSESSMENT 1. Escherichia coli urinary tract infection. 2. End-stage renal disease. 3. Paroxysmal atrial fibrillation. 4. Staghorn calculi, right kidney. 5. Left hydronephrosis. PLAN 1. Stable dialysis yesterday. 2. Case discussed with Dr. Frost and rylee Caraballo to switch to oral antibiotics and discharge. 3. Continue to hold Eliquis. The patient is scheduled for nephrectomy next week. Ana Ochoa MD
--- NOTE | 2019-02-11 21:01 | PN ---
DATE: 02/11/2019 SUBJECTIVE: The patient was seen earlier this morning. His back pain is much improved. He is doing very well. PHYSICAL EXAMINATION: VITAL SIGNS: Temperature is 98, blood pressure is 102/70, respiratory rate of 16. HEENT: Unremarkable. NECK: Supple. LUNGS: Decreased breath sounds. HEART: Normal S1 and S2. ABDOMEN: Soft. LABORATORY DATA: Reveals a very sensitive E. coli in the urine. The blood cultures are negative. ASSESSMENT AND PLAN: A 58-year-old male with Escherichia coli, left pyelonephritis sensitive to Cipro. We will switch to p.o. Cipro and adjust accordingly. The patient with Dr. Frost and Dr. Ochoa. We will complete a total of 10 to 14 days of antibiotics. Joe Bergman MD
== END 2019-02-11 16:13 | disposition home or self-care (01) | DRG 690 ==
LOC: ED 13:32 → ERH 16:11 → 5RNO 17:41
PROVIDERS: ADMIT Internal Medicine; ATTEND Internal Medicine
PROC: 5A1D70Z Performance of Urinary Filtration, Intermittent, Less than 6 Hours Per Day (ICD-10-PCS; principal; 2019-02-10)
DX: N13.6 Pyonephrosis (principal); I13.2 Hypertensive heart and chronic kidney disease with heart failure and with stage 5 chronic kidney disease, or end stage renal disease; E11.22 Type 2 diabetes mellitus with diabetic chronic kidney disease; N18.6 End stage renal disease; N31.9 Neuromuscular dysfunction of bladder, unspecified; Z79.01 Long term (current) use of anticoagulants; Z87.440 Personal history of urinary (tract) infections; Z99.2 Dependence on renal dialysis; E87.5 Hyperkalemia; I48.0 Paroxysmal atrial fibrillation; J44.9 Chronic obstructive pulmonary disease, unspecified; B96.20 Unspecified Escherichia coli [E. coli] as the cause of diseases classified elsewhere; E11.51 Type 2 diabetes mellitus with diabetic peripheral angiopathy without gangrene; I25.10 Atherosclerotic heart disease of native coronary artery without angina pectoris; I50.9 Heart failure, unspecified; Z86.73 Personal history of transient ischemic attack (TIA), and cerebral infarction without residual deficits; Z87.442 Personal history of urinary calculi; Z93.3 Colostomy status; Z95.1 Presence of aortocoronary bypass graft

== ENCOUNTER 2019-03-01 04:16 | Inpatient (IN) | payer MEDICARE ==
[2019-03-01 04:16] VITALS: PULSE 110
[2019-03-01 04:18] VITALS: BMI 25.8
--- NOTE | 2019-03-01 04:27 | ED PDOC ---
Arrival/HPI - General Historian: Patient - History of Present Illness Narrative History of Present Illness (Text): 03/01/19 04:27 Patient is a 68 yo male with CKD on HD MWF s/p R-sided nephrectomy about 2 weeks ago, Afib on Eliquis, CAD s/p stents, PVD, and anemia who presents with inability to urinate. Patient states that he began dialysis about 1 month ago and was still producing urine after his nephrectomy. He states that yesterday morning and throughout the day he attempted to urinate but only clear mucus came out. Additionally, patient states he feels constipated and has only recently been having small hard BMs. He states he was taking Percocet after his surgery up until about 1 week ago. Patient states that after his nephrectomy, he had to stay in the ICU for sepsis. Currently, patient denies fevers/chills. He has mild abdominal pain at the site of his surgery (RLQ). He states he has been taking all of his medications as prescribed. His last dialysis session was Friday and he is scheduled for dialysis later today. he receives dialysis via R-sided chest tunnel catheter. Time/Duration: 24 hours Symptom Onset: Sudden <Aleah Honeycutt - Last Filed: 03/01/19 06:05> <Preston Dimas - Last Filed: 03/01/19 19:31> - General Chief Complaint: Male Genitourinary Time Seen by Provider: 03/01/19 04:18 Past Medical History - Provider Review Nursing Documentation Reviewed: Yes Primary Care Provider: Ana Frost - Past History Past History: No Previous - Infectious Disease Hx of Infectious Diseases: None - Tetanus Immunization Tetanus Immunization: Unknown - Cardiac Hx Cardiac Disorders: Yes (afib) Hx Pacemaker: Yes (R chest) - Pulmonary Hx Respiratory Disorders: Yes Hx Chronic Obstructive Pulmonary Disease (COPD): Yes - Neurological Hx Paralysis: No - HEENT Hx HEENT Disorder: Yes (wears glasses) - Renal Hx Renal Disorder: Yes Hx Dialysis: Yes (MWF) Date of Last Dialysis Treatment: 02/08/19 Hx Kidney Stones: Yes Hx Renal Failure: Yes - Endocrine/Metabolic Hx Diabetes Mellitus Type 2: Yes - Hematological/Oncological Hx Blood Transfusions: Yes Hx Blood Transfusion Reaction: No - Integumentary Hx Dermatological Disorder: Yes (candidiasis in groin, cystitis) - Musculoskeletal/Rheumatological Hx Musculoskeletal Disorders: Yes - Gastrointestinal Hx Gastrointestinal Disorders: Yes Hx Colostomy: Yes (reversed about 3 yrs ago) Hx Diverticulitis: Yes Other/Comment: hx of anal fistula had sx, developed abd hernia after colostomy reversal - Genitourinary/Gynecological Hx Genitourinary Disorders: Yes Hx Urinary Tract Infection: Yes (recurrent) - Psychiatric Hx Emotional Abuse: No Hx Physical Abuse: No Hx Substance Use: No - Surgical History Other/Comment: R chest udall. Colostomy reversal - Anesthesia Hx Anesthesia: Yes Hx Anesthesia Reactions: No Hx Malignant Hyperthermia: No - Suicidal Assessment Feels Threatened In Home Enviroment: No <Aleah Honeycutt - Last Filed: 03/01/19 06:05> Family/Social History Family/Social History: Hypertension Smoking Status: Current Some Days Smoker Hx Alcohol Use: Yes (occasional beer) Hx Substance Use: No Hx Substance Use Treatment: No <Aleah Honeycutt - Last Filed: 03/01/19 06:05> Allergies/Home Meds <Aleah Honeycutt - Last Filed: 03/01/19 06:05> <Preston Dimas - Last Filed: 03/01/19 19:31> Allergies/Adverse Reactions: Allergies ceftriaxone sodium [From Rocephin] Allergy (Intermediate, Verified 03/01/19 16:43) ITCHING Home Medications: Home Meds Medication Instructions Recorded Confirmed Calcium Acetate [Phoslo] 667 mg PO TID 02/09/19 03/01/19 Digoxin [Digitek] 250 mcg PO MWF 02/09/19 03/01/19 Review of Systems - Review of Systems Constitutional: absent: Fatigue, Fevers Eyes: absent: Vision Changes ENT: absent: Hearing Changes Respiratory: absent: SOB, Cough Cardiovascular: absent: Chest Pain, Palpitations Gastrointestinal: Abdominal Pain, Constipation. absent: Diarrhea, Nausea, Vomiting, Hematochezia Genitourinary Male: Urinary Output Changes Skin: absent: Rash, Pruritis, Skin Lesions Neurological: absent: Headache, Dizziness Endocrine: absent: Diaphoresis Hemo/Lymphatic: absent: Adenopathy <Aleah Honeycutt - Last Filed: 03/01/19 06:05> Physical Exam Vital Signs Reviewed: Yes Temperature: Afebrile Blood Pressure: Hypotensive Pulse: Regular Respiratory Rate: Normal Appearance: Positive for: Non-Toxic, Comfortable Pain Distress: None Mental Status: Positive for: Alert and Oriented X 3 - Systems Exam Head: Present: Atraumatic, Normocephalic Pupils: Present: PERRL Extroacular Muscles: Present: EOMI Conjunctiva: Present: Normal Mouth: Present: Moist Mucous Membranes Respiratory/Chest: Present: Clear to Auscultation, Good Air Exchange Cardiovascular: Present: Regular Rate and Rhythm, Normal S1, S2 Abdomen: Present: Tenderness (mild RLQ over surgical incisions), Scars (RLQ- new, well-healing, no signs of infection or bleeding; mid L-sided well healed horizontal from previous colostomy). No: Distention Genitourinary Male: Present: Normal External Genitalia Lower Extremity: No: Edema Neurological: Present: GCS=15, CN II-XII Intact, Speech Normal Skin: Present: Warm, Dry, Normal Color Psychiatric: Present: Alert, Oriented x 3, Normal Insight, Normal Concentration <Aleah Honeycutt - Last Filed: 03/01/19 06:05> Vital Signs Temp Pulse Resp BP Pulse Ox 03/01/19 04:27 97.5 F L 90 18 99/56 L 95 <Preston Dimas - Last Filed: 03/01/19 19:31> Medical Decision Making ED Course and Treatment: 03/01/19 04:42 Villalba 03/01/19 06:[address] Frost who accepts patient for admission. Re-evaluation Time: 06:06 Reassessment Condition: Improving,but remains with symptoms - Lab Interpretations I have reviewed the lab results: Yes Interpretation: Abnormal lab values (elevated WBC) - Medication Orders Current Medication Orders: 03/01/19 04:43 Dulcolax PO Mag citrate PO NS 1L bolus 03/01/19 05:44 Cipro 400 mg IV <Aleah Honeycutt - Last Filed: 03/01/19 06:05> ED Course and Treatment: Impression: Patient Seen with Resident: In agreement with resident note which contains more details about the patient. Patient seen and evaluated with resident. Came up with plan and treatment together. Pt, whose past medical history includes chronic kidney disease on hemodialysis (M/W/F) s/p right-sided nephrectomy, a fib, CAD, peripheral vascul ar disease, and anemia, presented for inability to urinate and constipation. Plan: -- Labs, blood cultures -- Urinalysis,urine cultures --CT a/p w/o contrast -- IV fluids -- Citrate of Mag -- Dulcolax --Merremm -- Villalba Catheter placement -- Reassess and disposition 03/01/19 05:54 Labs reviewed with leukocytosis of 16 noted along with UA positive for leukocyte esterases. Merrem ordered. Discussion with Dr. Ana Frost(PCP) with request to consult Dr. Bergman(infectious disease) as well as Dr. Ochoa(nephrology) to initiate dialysis for today. He requests the patient to remain in the Emergency Room until he comes to evaluate patient. CT a/p ordered. 03/01/19 05:[address] Bergman who will come to evaluate the patient. CT a/p results pending. - Lab Interpretations Lab Results: 03/01/19 04:35 03/01/19 04:35 Lab Results 03/01/19 04:55: Urine Color Yellow, Urine Appearance Cloudy, Urine pH 7.0, Ur Specific [place] 1.020, Urine Protein >=300 H, Urine Glucose (UA) Negative, Urine Ketones Negative, Urine Blood Small H, Urine Nitrate Negative, Urine Bilirubin Negative, Urine Urobilinogen 0.2, Ur Leukocyte Esterase Moderate H, Urine RBC 0 - 2, Urine WBC Tntc H, Ur Epithelial Cells 0 - 2, Urine Bacteria Many 03/01/19 04:35: PT 20.6 H, INR 1.82, APTT 38.2 03/01/19 04:35: Sodium 136, Potassium 4.2, Chloride 90 L, Carbon Dioxide 29, Anion Gap 21 H, BUN 56 H, Creatinine 9.0 H* D, Est GFR ( Amer) 7, Est GFR (Non-Af Amer) 6, Random Glucose 170 H, Calcium 8.8, Phosphorus 5.4 H, Magnesium 1.9, Total Bilirubin 0.6, AST 71 H D, ALT 18, Alkaline Phosphatase 129 H D, Total Protein 8.7 H, Albumin 3.9, Globulin 4.8, Albumin/Globulin Ratio 0.8 L 03/01/19 04:35: WBC 16.9 H D, RBC 3.64, Hgb 10.5 L, Hct 33.0 L, MCV 90.7 D, MCH 28.8, MCHC 31.8, RDW 14.8 H, Plt Count 380, MPV 9.3, Neut % (Auto) 85.7 H, Lymph % (Auto) 6.7 L, [place] % (Auto) 5.8, Eos % (Auto) 1.7, Baso % (Auto) 0.1, Lymph # (Auto) 1.1 L, [place] # (Auto) 1.0 H, Eos # (Auto) 0.3, Baso # (Auto) 0.02, Absolute Neuts (auto) 14.49 H - RAD Interpretation Radiology Orders: Date of service: 03/01/2019 PROCEDURE: CT Abdomen and Pelvis without intravenous contrast HISTORY: s/p nephrectomy w/ abdominal pain COMPARISON: None. TECHNIQUE: Without contrast.. Contrast dose: Radiation dose:exam DLP = 762.72 mGy-cm. This CT exam was performed using one or more of the following dose reduction techniques: Automated exposure control, adjustment of the mA and/or kV according to patient size, and/or use of iterative reconstruction technique. FINDINGS: LOWER THORAX: Minimal bibasilar atelectasis LIVER: Unremarkable. No gross lesion or ductal dilatation. GALLBLADDER AND BILE DUCTS: Unremarkable. PANCREAS: Unremarkable. No gross lesion or ductal dilatation. SPLEEN: Unremarkable. ADRENALS: Unremarkable. No mass. KIDNEYS AND URETERS: There is a fluid collection in the right renal fossa measuring 7 x 8.7 x 14 cm. There is a small amount of air in the superior portion of the collection. Findings could represent a postoperative seroma or abscess. The study was reviewed with Dr. Frost at 9:30 a.m. There is mild left-sided hydronephrosis and perinephric stranding. This has shown some improvement since the previous study of 02/09/2019. VASCULATURE: Unremarkable. No aortic aneurysm. Aortic and iliac calcifications BOWEL: Unremarkable. No obstruction. No gross mural thickening. There is a left-sided perirectal abscess measuring 2.4 x 4.7 cm. APPENDIX: Unremarkable. Normal appendix. PERITONEUM: Unremarkable. No free fluid. No free air. There is a subcutaneous fluid collection on the right side of the abdomen measuring 5.7 x 7.4 cm. There is an air-fluid level. LYMPH NODES: Unremarkable. No enlarged lymph nodes. BLADDER: There is a Villalba catheter in the bladder. There is thickening of the bladder w all. REPRODUCTIVE: Unremarkable. BONES: No acute fracture. OTHER FINDINGS: None. IMPRESSION: There is a fluid collection in the right renal fossa measuring 7 x 8.7 x 14 cm. There is a small amount of air in the superior portion of the collection. Findings could represent a postoperative seroma or abscess. There is mild left-sided hydronephrosis and perinephric stranding. This has shown some improvement since the previous study of 02/09/2019. - Medication Orders Current Medication Orders: Sodium Chloride (Sodium Chloride 0.9%) 1,000 mls @ 999 mls/hr IV .Q1H1M STA Stop: 03/01/19 05:42 Last Admin: 03/01/19 04:50 Dose: 999 mls/hr eMAR Start Stop Document 03/01/19 04:50 RG (Rec: 03/01/19 04:59 RG [id number]) Intravenous Solution Start Date 03/01/19 Start Time 04:50 Discontinued Medications Bisacodyl (Dulcolax) 5 mg PO ONCE ONE Stop: 03/01/19 04:43 Last Admin: 03/01/19 04:58 Dose: 5 mg Magnesium Citrate (Citrate Of Mag) 300 ml PO ONCE ONE Stop: 03/01/19 04:43 Last Admin: 03/01/19 05:00 Dose: 300 ml <Preston Dimas - Last Filed: 03/01/19 19:31> Disposition/Present on Arrival - Present on Arrival Any Indicators Present on Arrival: No History of DVT/PE: No History of Uncontrolled Diabetes: No Urinary Catheter: No History Surgical Site Infection Following: None - Disposition Have Diagnosis and Disposition been Completed?: Yes Patient Plan: Admission <Aleah Honeycutt - Last Filed: 03/01/19 06:05> - Present on Arrival Any Indicators Present on Arrival: No - Disposition Have Diagnosis and Disposition been Completed?: Yes Disposition Time: 06:01 Patient Plan: Admission <Preston Dimas - Last Filed: 03/01/19 19:31> - Disposition Diagnosis: UTI (urinary tract infection), S/p nephrectomy, Perinephric abscess Disposition: HOSPITALIZED Patient Problems: Current Active Problems Problem Status Onset S/p nephrectomy Acute Urinary tract infection Acute Condition: GUARDED
[2019-03-01 04:28] VITALS: RESP 18; TEMP 97.5; O2SAT 95
[2019-03-01] MEDS ORDERED: Magnesium Citrate Oral SOL (300 ml) PO ONE (04:42)
[2019-03-01] MEDS ORDERED: Bisacodyl 5mg EC Tab PO ONE (04:42)
[2019-03-01] MEDS ORDERED: Sodium Chloride 0.9% 1,000 ML IV STA (04:42)
[2019-03-01 05:25] LABS: BASO # 0.02 K/mm3 (0.0-2.0); BASO % 0.1 % (0.0-3.0); EOS # 0.3 (0.0-0.7); EOS % 1.7 % (1.5-5.0); HEMOGLOBIN 10.5 g/dL (14.0-18.0); LYMPH # 1.1 (1.2-3.4); LYMPH % 6.7 % (22.0-35.0); MEAN CORPUSCULAR HEMOGLOBIN 28.8 pg (25.0-35.0); MEAN CORPUSCULAR HGB CONC 31.8 g/dl (31.0-37.0); MEAN PLATELET VOLUME 9.3 fl (7.0-11.0); MONO % 5.8 % (1.0-6.0); RBC 3.64 10^6/uL (3.5-6.1); RED CELL DISTRIBUTION WIDTH 14.8 % (11.5-14.5); WHITE BLOOD COUNT 16.9 10^3/uL (4.5-11.0)
[2019-03-01 05:31] LABS: MEAN CELL VOLUME 90.7 fl (80.0-105.0)
[2019-03-01 05:33] LABS: INR 1.82; PARTIAL THROMBOPLASTIN TIME 38.2 Seconds (26.9-38.3); PROTHROMBIN TIME 20.6 SECONDS (9.4-12.5)
[2019-03-01 05:34] LABS: URINE BILIRUBIN NEGATIVE (NEGATIVE); URINE BLOOD SMALL (NEGATIVE); URINE GLUCOSE (UA) NEGATIVE (NEGATIVE); URINE LEUKOCYTE ESTERASE MODERATE Leu/uL (NEGATIVE); URINE PROTEIN >=300 mg/dL (<30 mg/dL); URINE UROBILINOGEN 0.2 E.U./dL (<1 E.U./dL)
[2019-03-01 05:35] LABS: URINE APPEARANCE CLOUDY (CLEAR); URINE COLOR YELLOW (YELLOW)
[2019-03-01 05:40] LABS: ALB/GLOB RATIO 0.8 (1.1-1.8); ALBUMIN 3.9 g/dL (3.0-4.8); CALCIUM 8.8 mg/dL (8.4-10.5)
[2019-03-01 05:40] LABS: URINE BACTERIA MANY /hpf; URINE EPITHELIAL CELLS 0 - 2 /hpf (0-5); URINE RBC 0 - 2 /hpf (0-2); URINE WBC TNTC /hpf (0-6)
[2019-03-01] MEDS ORDERED: Ciprofloxacin 400mg/200ml D5W 400 MG/200 ML BAG IVPB STA (05:43)
[2019-03-01] MEDS ORDERED: Meropenem IV 1 gm in NS 1 GM/50 ML BAG IVPB SCH (06:00)
[2019-03-01] MEDS ORDERED: Morphine 4 mg/ml ISec IVP STA (06:09)
[2019-03-01 07:19] VITALS: BP 95/62; PULSE 89
--- NOTE | 2019-03-01 09:40 | CT ---
Date of service: 03/01/2019 PROCEDURE: CT Abdomen and Pelvis without intravenous contrast HISTORY: s/p nephrectomy w/ abdominal pain COMPARISON: None. TECHNIQUE: Without contrast.. Contrast dose: Radiation dose: Total exam DLP = 762.72 mGy-cm. This CT exam was performed using one or more of the following dose reduction techniques: Automated exposure control, adjustment of the mA and/or kV according to patient size, and/or use of iterative reconstruction technique. FINDINGS: LOWER THORAX: Minimal bibasilar atelectasis LIVER: Unremarkable. No gross lesion or ductal dilatation. GALLBLADDER AND BILE DUCTS: Unremarkable. PANCREAS: Unremarkable. No gross lesion or ductal dilatation. SPLEEN: Unremarkable. ADRENALS: Unremarkable. No mass. KIDNEYS AND URETERS: There is a fluid collection in the right renal fossa measuring 7 x 8.7 x 14 cm. There is a small amount of air in the superior portion of the collection. Findings could represent a postoperative seroma or abscess. The study was reviewed with Dr. Frost at 9:30 a.m. There is mild left-sided hydronephrosis and perinephric stranding. This has shown some improvement since the previous study of 02/09/2019. VASCULATURE: Unremarkable. No aortic aneurysm. Aortic and iliac calcifications BOWEL: Unremarkable. No obstruction. No gross mural thickening. There is a left-sided perirectal abscess measuring 2.4 x 4.7 cm. APPENDIX: Unremarkable. Normal appendix. PERITONEUM: Unremarkable. No free fluid. No free air. There is a subcutaneous fluid collection on the right side of the abdomen measuring 5.7 x 7.4 cm. There is an air-fluid level. LYMPH NODES: Unremarkable. No enlarged lymph nodes. BLADDER: There is a Villalba catheter in the bladder. There is thickening of the bladder wall. REPRODUCTIVE: Unremarkable. BONES: No acute fracture. OTHER FINDINGS: None. IMPRESSION: There is a fluid collection in the right renal fossa measuring 7 x 8.7 x 14 cm. There is a small amount of air in the superior portion of the collection. Findings could represent a postoperative seroma or abscess. There is mild left-sided hydronephrosis and perinephric stranding. This has shown some improvement since the previous study of 02/09/2019. There is a subcutaneous fluid collection on the right side of the abdomen measuring 5.7 x 7.4 cm. There is an air-fluid level. There is a left-sided perirectal abscess measuring 2.4 x 4.7 cm.
[2019-03-01] MEDS ORDERED: Piperacillin/Tazobact 3.375 gm Inj IVPB SCH (10:42)
--- NOTE | 2019-03-01 11:32 | CP.PCM.CON ---
History of Present Illness - History of Present Illness History of Present Illness: General Surgery Note for Dr. Moncada Patient is a 68 year old male with PMHx of Afib, CAD, ESRD on HD, s/p Right- sided Nephrectomy, who presents with inability to urinate. Patient says that after his nephrectomy 1week [employer], he has been experiencing trouble urinating. He says that after the surgery, he had "complications" which required extended ICU admission. Once discharged, he noticed that he could not produce urine. The patient would strain and would only produce pus-like fluid. He promotes dysuria with this. The patient also reports abdominal pain around the incision site, worsened with palpation. The pain began shortly post-operatively and is localized to his RLQ. Patient promotes localized RLQ abdominal pain, constipa tion, dysuria, and decreased urinary output. Denies fever, fatigue, headache, blurry vision, chest pain, palpitations, nausea, vomiting, diarrhea, rectal pain, numbness and tingling CT scan performed shows fluid collection in right renal fossa as well as abdominal wall and perirectal area concerning for abscess for which surgery was consulted. PMHx: see above, PVD, anemia, DM2. peripheral neuropathy Meds: reviewed in chart Allergies: Ceftriaxone PSHx: R nephrectomy, Left TMA, Right toe amputation, Pacemaker placement, Colostomy with reversal, permacath, PCI FHx: Father (Lung Cancer), Mother (Breast cancer), Brother (Pancreatic cancer) SHx: Former smoker (quit 10 years ago, 2 ppd), Former drinker (drank a lot, quit years ago), denies illicit drug use Review of Systems - Review of Systems All systems: reviewed and no additional remarkable complaints except (As per HPI) Past Patient History - Infectious Disease Hx of Infectious Diseases: None - Tetanus Immunizations Tetanus Immunization: Unknown - Past Social History Smoking Status: Current Some Days Smoker - CARDIAC Hx Cardiac Disorders: Yes (afib) Hx Pacemaker: Yes (R chest) - PULMONARY Hx Respiratory Disorders: Yes Hx Chronic Obstructive Pulmonary Disease (COPD): Yes - NEUROLOGICAL Hx Paralysis: No - HEENT Hx HEENT Problems: Yes (wears glasses) - RENAL Hx Chronic Kidney Disease: Yes Hx Dialysis: Yes (MWF) Date of Last Dialysis Treatment: 02/08/19 Hx Kidney Stones: Yes Hx Renal Failure: Yes - ENDOCRINE/METABOLIC Hx Diabetes Mellitus Type 2: Yes - HEMATOLOGICAL/ONCOLOGICAL Hx Blood Transfusions: Yes Hx Blood Transfusion Reaction: No - INTEGUMENTARY Hx Dermatological Problems: Yes (candidiasis in groin, cystitis) - MUSCULOSKELETAL/RHEUMATOLOGICAL Hx Musculoskeletal Disorders: Yes - GASTROINTESTINAL Hx Gastrointestinal Disorders: Yes Hx Colostomy: Yes (reversed about 3 yrs ago) Hx Diverticulitis: Yes Other/Comment: hx of anal fistula had sx, developed abd hernia after colostomy reversal - GENITOURINARY/GYNECOLOGICAL Hx Genitourinary Disorders: Yes Hx Urinary Tract Infection: Yes (recurrent) - PSYCHIATRIC Hx Emotional Abuse: No Hx Physical Abuse: No Hx Substance Use: No - SURGICAL HISTORY Other/Comment: R chest udall. Colostomy reversal - ANESTHESIA Hx Anesthesia: Yes Hx Anesthesia Reactions: No Hx Malignant Hyperthermia: No Meds Allergies/Adverse Reactions: Allergies Allergy/AdvReac Type Severity Reaction Status Date / Time ceftriaxone sodium Allergy Intermediate ITCHING Verified 12/23/18 14:22 [From Rocephin] - Medications Medications: Current Medications Piperacillin Sod/Tazobactam Sod (Zosyn 2.25 Gm In 0.9% 100 Ml) 2.25 gm in 100 mls @ 100 mls/hr IVPB Q6 NESHA Physical Exam - Constitutional Appears: Non-toxic, No Acute Distress - Head Exam Head Exam: ATRAUMATIC, NORMAL INSPECTION, NORMOCEPHALIC - Eye Exam Eye Exam: EOMI, Normal appearance Pupil Exam: PERRL - ENT Exam ENT Exam: Mucous Membranes Moist - Neck Exam Neck exam: Positive for: Normal Inspection - Respiratory Exam Respiratory Exam: Clear to Auscultation Bilateral, NORMAL BREATHING PATTERN. absent: Accessory Muscle Use, Respiratory Distress - Cardiovascular Exam Cardiovascular Exam: REGULAR RHYTHM, +S1, +S2. absent: Bradycardia, Tachycardia - GI/Abdominal Exam GI & Abdominal Exam: Normal Bowel Sounds, Soft, Tenderness (Diffuse with inc reased severity at nephrectomy incision at RLQ). absent: Distended, Firm, Guarding, Rebound, Rigid Additional comments: Incision sites clean, dry, intact RLQ incision fluctuant but no erythema or induration - Rectal Exam Rectal Exam: Deferred - Exam Additional comments: Villalba collection bag shows purulent drainage - Neurological Exam Neurological exam: Alert, Oriented x3 - Psychiatric Exam Psychiatric exam: Normal Affect, Normal Mood - Skin Skin Exam: Dry, Intact, Normal Color, Warm Results - Vital Signs Recent Vital Signs: Last Vital Signs Temp 97.5 F L 03/01/19 04:27 Pulse 89 03/01/19 07:19 Resp 18 03/01/19 07:19 BP 95/62 L 03/01/19 07:19 Pulse Ox 95 03/01/19 07:19 - Labs Result Diagrams: 03/01/19 04:35 03/01/19 04:35 Labs: Laboratory Results - last 24 hr 03/01/19 03/01/19 03/01/19 04:35 04:35 04:35 WBC 16.9 H D RBC 3.64 Hgb 10.5 L Hct 33.0 L MCV 90.7 D MCH 28.8 MCHC 31.8 RDW 14.8 H Plt Count 380 MPV 9.3 Neut % (Auto) 85.7 H Lymph % (Auto) 6.7 L [place] % (Auto) 5.8 Eos % (Auto) 1.7 Baso % (Auto) 0.1 Lymph # (Auto) 1.1 L [place] # (Auto) 1.0 H Eos # (Auto) 0.3 Baso # (Auto) 0.02 Absolute Neuts (auto) 14.49 H PT 20.6 H INR 1.82 APTT 38.2 Sodium 136 Potassium 4.2 Chloride 90 L Carbon Dioxide 29 Anion Gap 21 H BUN 56 H Creatinine 9.0 H* D Est GFR ( Amer) 7 Est GFR (Non-Af Amer) 6 Random Glucose 170 H Calcium 8.8 Phosphorus 5.4 H Magnesium 1.9 Total Bilirubin 0.6 AST 71 H D ALT 18 Alkaline Phosphatase 129 H D Total Protein 8.7 H Albumin 3.9 Globulin 4.8 Albumin/Globulin Ratio 0.8 L Urine Color Urine Appearance Urine pH Ur Specific [place] Urine Protein Urine Glucose (UA) Urine Ketones Urine Blood Urine Nitrate Urine Bilirubin Urine Urobilinogen Ur Leukocyte Esterase Urine RBC Urine WBC Ur Epithelial Cells Urine Bacteria 03/01/19 04:55 WBC RBC Hgb Hct MCV MCH MCHC RDW Plt Count MPV Neut % (Auto) Lymph % (Auto) [place] % (Auto) Eos % (Auto) Baso % (Auto) Lymph # (Auto) [place] # (Auto) Eos # (Auto) Baso # (Auto) Absolute Neuts (auto) PT INR APTT Sodium Potassium Chloride Carbon Dioxide Anion Gap BUN Creatinine Est GFR ( Amer) Est GFR (Non-Af Amer) Random Glucose Calcium Phosphorus Magnesium Total Bilirubin AST ALT Alkaline Phosphatase Total Protein Albumin Globulin Albumin/Globulin Ratio Urine Color Yellow Urine Appearance Cloudy Urine pH 7.0 Ur Specific [place] 1.020 Urine Protein >=300 H Urine Glucose (UA) Negative Urine Ketones Negative Urine Blood Small H Urine Nitrate Negative Urine Bilirubin Negative Urine Urobilinogen 0.2 Ur Leukocyte Esterase Moderate H Urine RBC 0 - 2 Urine WBC Tntc H Ur Epithelial Cells 0 - 2 Urine Bacteria Many - Imaging and Cardiology CT scan - abdomen Status: Image reviewed by me, Report reviewed by me Assessment & Plan - Assessment and Plan (Free Text) Assessment: 68 year old male [place]/p [place] [facility] [place] wall and perirectal abscess Plan: Recommend CT AP with PO contrast Follow up with Urology consult Antibiotics Pain management Urine output Monitor input/output Encourage out of bed to chair and ambulation [place] [facility] [place] discussed with Dr. Moncada
[2019-03-01] MEDS ORDERED: Piperacillin/Tazobact 2.25gm 2.25 GM/100 ML BAG IVPB SCH ×2 (12:00→15:08)
--- NOTE | 2019-03-01 13:30 | CP.PCM.CON ---
<Seamus Schofield - Last Filed: 03/01/19 17:36> History of Present Illness - History of Present Illness History of Present Illness: Infectious disease consult note: 68-year-old male with past medical history of ESRD on dialysis, status post right sided nephrectomy 1 week ago, A. fib on Eliquis, CAD with stents, [place] [id number], and anemia that presents with abdominal pain. And difficulty with urination. Patient [facility]for multiple kidney stones infection). Following the surgery patient was admitted to the ICU for sepsis. Patient was subsequently discharged to a rehab where he signed out AMA. Over the next few days he developed worsening right lower quadrant abdominal pain. Then patient also had difficulty urinating, and saw pus inside his urine. At this time he became concerned and came to the emergency room. Patient denies any fevers or chills. Infectious disease was consulted for ESBL UTI 12 point ROS was performed and negative other than stated above. PMHx: see above, PVD, anemia, DM2. peripheral neuropathy Meds: reviewed in chart Allergies: Ceftriaxone PSHx: R nephrectomy, Left TMA, Right toe amputation, Pacemaker placement, Colostomy with reversal, permacath, PCI FHx: Father with Lung Cancer, Mother with Breast cancer SHx: Former smoker and Former drinker (drank a lot, quit years ago), denies illicit drug use Review of Systems - Review of Systems All systems: reviewed and no additional remarkable complaints except Past Patient History - Infectious Disease Hx of Infectious Diseases: None - Tetanus Immunizations Tetanus Immunization: Unknown - Past Social History Smoking Status: Current Some Days Smoker - CARDIAC Hx Cardiac Disorders: Yes (afib) Hx Pacemaker: Yes (R chest) - PULMONARY Hx Respiratory Disorders: Yes Hx Chronic Obstructive Pulmonary Disease (COPD): Yes - NEUROLOGICAL Hx Paralysis: No - HEENT Hx HEENT Problems: Yes (wears glasses) - RENAL Hx Chronic Kidney Disease: Yes Hx Dialysis: Yes (MWF) Date of Last Dialysis Treatment: 02/08/19 Hx Kidney Stones: Yes Hx Renal Failure: Yes - ENDOCRINE/METABOLIC Hx Diabetes Mellitus Type 2: Yes - HEMATOLOGICAL/ONCOLOGICAL Hx Blood Transfusions: Yes Hx Blood Transfusion Reaction: No - INTEGUMENTARY Hx Dermatological Problems: Yes (candidiasis in groin, cystitis) - MUSCULOSKELETAL/RHEUMATOLOGICAL Hx Musculoskeletal Disorders: Yes - GASTROINTESTINAL Hx Gastrointestinal Disorders: Yes Hx Colostomy: Yes (reversed about 3 yrs ago) Hx Diverticulitis: Yes Other/Comment: hx of anal fistula had sx, developed abd hernia after colostomy reversal - GENITOURINARY/GYNECOLOGICAL Hx Genitourinary Disorders: Yes Hx Urinary Tract Infection: Yes (recurrent) - PSYCHIATRIC Hx Emotional Abuse: No Hx Physical Abuse: No Hx Substance Use: No - SURGICAL HISTORY Other/Comment: R chest udall. Colostomy reversal - ANESTHESIA Hx Anesthesia: Yes Hx Anesthesia Reactions: No Hx Malignant Hyperthermia: No Meds Allergies/Adverse Reactions: Allergies Allergy/AdvReac Type Severity Reaction Status Date / Time ceftriaxone sodium Allergy Intermediate ITCHING Verified 03/01/19 16:43 [From Rocephin] - Medications Medications: Current Medications Apixaban (Eliquis) 2.5 mg PO BID NESHA; Protocol Calcium Acetate (Phoslo) 667 mg PO TID NESHA Digoxin (Lanoxin) 0.25 mg PO MWF [facility] Piperacillin Sod/Tazobactam Sod (Zosyn 2.25 Gm In 0.9% 100 Ml) 2.25 gm in 100 mls @ 100 mls/hr IVPB Q6 NESHA Metoprolol Tartrate (Lopressor) 50 mg PO Q12 NESHA Physical Exam - Head Exam Head Exam: ATRAUMATIC, NORMOCEPHALIC - Eye Exam Eye Exam: EOMI, PERRL - ENT Exam ENT Exam: Mucous Membranes Moist - Respiratory Exam Respiratory Exam: Clear to Auscultation Bilateral. absent: Rales, Wheezes - Cardiovascular Exam Cardiovascular Exam: REGULAR RHYTHM, +S1, +S2 - GI/Abdominal Exam GI & Abdominal Exam: Normal Bowel Sounds, Soft, Tenderness (RLQ) - Extremities Exam Extremities exam: Negative for: calf tenderness, pedal edema - Neurological Exam Neurological exam: Alert, CN II-XII Intact, Oriented x3 - Psychiatric Exam Psychiatric exam: Normal Mood - Skin Skin Exam: Dry, Warm Results - Vital Signs Recent Vital Signs: Last Vital Signs Temp 97.5 F L 03/01/19 04:27 Pulse 89 03/01/19 07:19 Resp 18 03/01/19 07:19 BP 95/62 L 03/01/19 07:19 Pulse Ox 95 03/01/19 07:19 - Labs Result Diagrams: 03/01/19 04:35 03/01/19 04:35 Labs: Laboratory Results - last 24 hr 03/01/19 03/01/19 03/01/19 04:35 04:35 04:35 WBC 16.9 H D RBC 3.64 Hgb 10.5 L Hct 33.0 L MCV 90.7 D MCH 28.8 MCHC 31.8 RDW 14.8 H Plt Count 380 MPV 9.3 Neut % (Auto) 85.7 H Lymph % (Auto) 6.7 L [place] % (Auto) 5.8 Eos % (Auto) 1.7 Baso % (Auto) 0.1 Lymph # (Auto) 1.1 L [place] # (Auto) 1.0 H Eos # (Auto) 0.3 Baso # (Auto) 0.02 Absolute Neuts (auto) 14.49 H PT 20.6 H INR 1.82 APTT 38.2 Sodium 136 Potassium 4.2 Chloride 90 L Carbon Dioxide 29 Anion Gap 21 H BUN 56 H Creatinine 9.0 H* D Est GFR ( Amer) 7 Est GFR (Non-Af Amer) 6 Random Glucose 170 H Calcium 8.8 Phosphorus 5.4 H Magnesium 1.9 Total Bilirubin 0.6 AST 71 H D ALT 18 Alkaline Phosphatase 129 H D Total Protein 8.7 H Albumin 3.9 Globulin 4.8 Albumin/Globulin Ratio 0.8 L Urine Color Urine Appearance Urine pH Ur Specific [place] Urine Protein Urine Glucose (UA) Urine Ketones Urine Blood Urine Nitrate Urine Bilirubin Urine Urobilinogen Ur Leukocyte Esterase Urine RBC Urine WBC Ur Epithelial Cells Urine Bacteria 03/01/19 04:55 WBC RBC Hgb Hct MCV MCH MCHC RDW Plt Count MPV Neut % (Auto) Lymph % (Auto) [place] % (Auto) Eos % (Auto) Baso % (Auto) Lymph # (Auto) [place] # (Auto) Eos # (Auto) Baso # (Auto) Absolute Neuts (auto) PT INR APTT Sodium Potassium Chloride Carbon Dioxide Anion Gap BUN Creatinine Est GFR ( Amer) Est GFR (Non-Af Amer) Random Glucose Calcium Phosphorus Magnesium Total Bilirubin AST ALT Alkaline Phosphatase Total Protein Albumin Globulin Albumin/Globulin Ratio Urine Color Yellow Urine Appearance Cloudy Urine pH 7.0 Ur Specific [place] 1.020 Urine Protein >=300 H Urine Glucose (UA) Negative Urine Ketones Negative Urine Blood Small H Urine Nitrate Negative Urine Bilirubin Negative Urine Urobilinogen 0.2 Ur Leukocyte Esterase Moderate H Urine RBC 0 - 2 Urine WBC Tntc H Ur Epithelial Cells 0 - 2 Urine Bacteria Many Assessment & Plan - Assessment and Plan (Free Text) Assessment: Right-sided renal fossa collection presenting abscess L sided pyelonephritis Left-sided perirectal abscess measuring 2.4 x 4.7 cm. ESRD on hemodialysis status post right-sided nephrectomy Coronary artery disease with stent Atrial fibrillation on Eliquis Peripheral vascular disease Anemia CT of the abdomen was performed showing right renal fossa fluid collection 7 x 8.7 x 14 cm in size representing a postoperative seroma versus abscess. Mild left-sided hydronephrosis and perinephric stranding. Subcutaneous fluid c ollection on the right side of the abdomen measuring 5.7 x 7.4 cm with air-fluid level. Left-sided perirectal abscess measuring 2.4 x 4.7 cm. D/c Zosyn, Started on Clair with hx of ESBL, and vanc x 1 Follow-up septic work-up including blood and urine cultures Follow-up with surgical recommendations - Recommend CT AP with PO contrast Will ask IR for evaluation of abscess Follow up with Urology consult recs Continue to monitor for any changes Case to be reviewed and discussed with Dr. Bergman <Joe Bergman - Last Filed: 03/01/19 18:19> Meds - Medications Medications: Current Medications Acetaminophen (Tylenol 325mg Tab) 650 mg PO Q6H PRN PRN Reason: Pain, moderate (4-7) Last Admin: 03/01/19 15:42 Dose: 650 mg Apixaban (Eliquis) 2.5 mg PO BID [facility]; Protocol Last Admin: 03/01/19 17:32 Dose: 2.5 mg Calcium Acetate (Phoslo) 667 mg PO TID NESHA Last Admin: 03/01/19 17:32 Dose: 667 mg Digoxin (Lanoxin) 0.25 mg PO MWF [facility] Meropenem 250 mg/ Sodium (Chloride) 100 mls @ 100 mls/hr IVPB Q12H NESHA; Protocol Stop: 03/08/19 17:31 Vancomycin HCl (Vancomycin 1gm) 1 gm in 250 mls @ 167 mls/hr IVPB STAT STA; Protocol Stop: 03/01/19 19:07 Last Admin: 03/01/19 18:01 Dose: 167 mls/hr Metoprolol Tartrate (Lopressor) 50 mg PO Q12 NESHA Results - Vital Signs Recent Vital Signs: Last Vital Signs Temp 97.5 F L 03/01/19 04:27 Pulse 89 03/01/19 07:19 Resp 18 03/01/19 07:19 BP 95/62 L 03/01/19 07:19 Pulse Ox 95 03/01/19 07:19 - Labs Result Diagrams: 03/01/19 04:35 03/01/19 04:35 Labs: Laboratory Results - last 24 hr 03/01/19 03/01/19 03/01/19 04:35 04:35 04:35 WBC 16.9 H D RBC 3.64 Hgb 10.5 L Hct 33.0 L MCV 90.7 D MCH 28.8 MCHC 31.8 RDW 14.8 H Plt Count 380 MPV 9.3 Neut % (Auto) 85.7 H Lymph % (Auto) 6.7 L [place] % (Auto) 5.8 Eos % (Auto) 1.7 Baso % (Auto) 0.1 Lymph # (Auto) 1.1 L [place] # (Auto) 1.0 H Eos # (Auto) 0.3 Baso # (Auto) 0.02 Absolute Neuts (auto) 14.49 H PT 20.6 H INR 1.82 APTT 38.2 Sodium 136 Potassium 4.2 Chloride 90 L Carbon Dioxide 29 Anion Gap 21 H BUN 56 H Creatinine 9.0 H* D Est GFR ( Amer) 7 Est GFR (Non-Af Amer) 6 POC Glucose (mg/dL) Random Glucose 170 H Calcium 8.8 Phosphorus 5.4 H Magnesium 1.9 Total Bilirubin 0.6 AST 71 H D ALT 18 Alkaline Phosphatase 129 H D Total Protein 8.7 H Albumin 3.9 Globulin 4.8 Albumin/Globulin Ratio 0.8 L Urine Color Urine Appearance Urine pH Ur Specific [place] Urine Protein Urine Glucose (UA) Urine Ketones Urine Blood Urine Nitrate Urine Bilirubin Urine Urobilinogen Ur Leukocyte Esterase Urine RBC Urine WBC Ur Epithelial Cells Urine Bacteria Hep Bs Antigen Hep Bs Antibody Hep B Core IgM Ab 03/01/19 03/01/19 03/01/19 04:35 04:35 04:37 WBC RBC Hgb Hct MCV MCH MCHC RDW Plt Count MPV Neut % (Auto) Lymph % (Auto) [place] % (Auto) Eos % (Auto) Baso % (Auto) Lymph # (Auto) [place] # (Auto) Eos # (Auto) Baso # (Auto) Absolute Neuts (auto) PT INR APTT Sodium Potassium Chloride Carbon Dioxide Anion Gap BUN Creatinine Est GFR ( Amer) Est GFR (Non-Af Amer) POC Glucose (mg/dL) 191 H Random Glucose Calcium Phosphorus Magnesium Total Bilirubin AST ALT Alkaline Phosphatase Total Protein Albumin Globulin Albumin/Globulin Ratio Urine Color Urine Appearance Urine pH Ur Specific [place] Urine Protein Urine Glucose (UA) Urine Ketones Urine Blood Urine Nitrate Urine Bilirubin Urine Urobilinogen Ur Leukocyte Esterase Urine RBC Urine WBC Ur Epithelial Cells Urine Bacteria Hep Bs Antigen Negative Hep Bs Antibody Negative Hep B Core IgM Ab Negative 03/01/19 04:55 WBC RBC Hgb Hct MCV MCH MCHC RDW Plt Count MPV Neut % (Auto) Lymph % (Auto) [place] % (Auto) Eos % (Auto) Baso % (Auto) Lymph # (Auto) [place] # (Auto) Eos # (Auto) Baso # (Auto) Absolute Neuts (auto) PT INR APTT Sodium Potassium Chloride Carbon Dioxide Anion Gap BUN Creatinine Est GFR ( Amer) Est GFR (Non-Af Amer) POC Glucose (mg/dL) Random Glucose Calcium Phosphorus Magnesium Total Bilirubin AST ALT Alkaline Phosphatase Total Protein Albumin Globulin Albumin/Globulin Ratio Urine Color Yellow Urine Appearance Cloudy Urine pH 7.0 Ur Specific [place] 1.020 Urine Protein >=300 H Urine Glucose (UA) Negative Urine Ketones Negative Urine Blood Small H Urine Nitrate Negative Urine Bilirubin Negative Urine Urobilinogen 0.2 Ur Leukocyte Esterase Moderate H Urine RBC 0 - 2 Urine WBC Tntc H Ur Epithelial Cells 0 - 2 Urine Bacteria Many Hep Bs Antigen Hep Bs Antibody Hep B Core IgM Ab Attending/Attestation - Attestation I have personally seen and examined this patient.: Yes I have fully participated in the care of the patient.: Yes I have reviewed all pertinent clinical information: Yes
--- NOTE | 2019-03-01 16:14 | HP ---
DATE OF EXAM: 03/01/2019 HISTORY OF PRESENT ILLNESS: A 68-year-old male came to the [place] emergency room with a history of complaints of abdominal pain, complaints of constipation, complaints of a purulent urine and difficulty voiding. The patient has a past medical history of right nephrectomy, history of urosepsis, history of coronary artery disease with stents, history of paroxysmal atrial fibrillation, history of abdominal hernia, status post repair for a colostomy which was created while he was being treated for a fistulas tract of the rectal valve area, history of chronic renal failure on dialysis, history of urosepsis, history of osteomyelitis, history of hyperkalemia,history of bradycardia, history of renal stones, history of anemia. ALLERGIES: HISTORY OF ALLERGY TO ROCEPHIN. HOME MEDICATIONS: Consist of Lopressor 50 mg every 12 hours, Digitek 250 mcg Friday, Friday, Friday, PhosLo 667 mg t.i.d. and Eliquis 2.5 mg p.o. b.i.d. SOCIAL HISTORY: Nonsmoker, nondrinker, non-drug user. REVIEW OF SYSTEMS: 12 systems reviewed. Pertinent findings as stated in the physical exam. PHYSICAL EXAMINATION: GENERAL: He is alert and oriented x3. VITAL SIGNS: Blood pressure is 95/62, his temperature is 97.5, his pulse is 89, his respiratory rate is 18, his oxygen sat is 95% on room air. NECK: Supple. HEART: S1, S2 rhythm. LUNGS: Show some chronic diminished breath sounds at the bases. ABDOMEN: Soft with a positive abdominal hernia. EXTREMITIES: Show no evidence of edema. Postoperative surgical changes are noted in the right side from his nephrectomy. LABORATORY DATA: Shows a WBC of 16.9, RBC 3.64, hemoglobin 10.5, hematocrit 33, platelet count is 380,000. His PT is 20.6 with INR of 1.82, PTT of 38.2. Chemistry shows a sodium of 136, potassium 4.2, chloride 90, CO2 of 29, BUN is 56, creatinine is 9. Random blood sugar is 170. His phosphorus is 5.4. His magnesium is 1.9. AST is 71, ALT is 18. His alkaline phosphatase is 129, his albumin is 3.9. The urine shows moderate leukocyte esterase with too numerous to count wbc's, many urine bacteria. This was a quiet through a straight cath. He has a Villalba catheter in place at this time. The patient received a dose of meropenem in the emergency room along with morphine, Dulcolax, citrate of magnesia and some IV fluids. IMPRESSION 1. Leukocytosis. 2. Pyuria. 3. Abdominal pain. 4. Status post right nephrectomy. 5. Chronic renal failure. 6. Anemia. PLAN: The patient will be cultured and was given a dose of meropenem in the emergency room. CAT scan of the abdomen, pelvis without contrast has been ordered and consultations has been requested with Infectious Disease and Nephrology. Ana Frost MD
[2019-03-01 17:22] LABS: HEPATITIS B SURFACE AG Negative (NEGATIVE)
[2019-03-01 17:27] LABS: HEPATITIS B CORE AB NEGATIVE (NEGATIVE)
[2019-03-01] MEDS ORDERED: Vancomycin 1gm in NS 250ml 1 GM/250 ML BAG IVPB STA (17:38)
--- NOTE | 2019-03-02 04:27 | CON ---
DATE: 03/01/2019 REASON FOR CONSULTATION: Abdominal discomfort, inability to urinate, ESRD. HISTORY OF PRESENT ILLNESS: A 68-year-old male well known to me from outpatient followup. The patient recently underwent a right nephrectomy. Postop course was complicated by respiratory failure. The patient had mucus plugging. The patient was treated in the ICU. He was also found to have a Pseudomonas UTI. The patient was discharged on IV Fortaz to be given intermittently on dialysis. The patient presented to the emergency room late last night with complaints of abdominal discomfort, inability to urinate, very thick purulent urine, scanty and also constipation. The patient underwent a CAT scan in the emergency room. He was found to have a collection in the right renal fossa, also some air in the right renal fossa. He was also found to have a dehiscence of his wound/incision. Also, found to have a perirectal abscess. Currently, the patient is lying in bed. He seems to be in moderate distress secondary to pain in the right lower quadrant. He denies any fever. Denies any chills. PAST MEDICAL AND SURGICAL HISTORY: Right staghorn calculus, right nephrectomy, left hydronephrosis, NIDDM, hypertension, CAD, PTCA and stents, atrial fibrillation, peripheral vascular disease, ESRD, multiple abdominal surgeries, neurogenic bladder, diverting colostomy because of perirectal abscess, status post reversal of colostomy. FAMILY HISTORY: Hypertension. SOCIAL HISTORY: No smoking, no alcohol use, no IV drug abuse. ALLERGIES: CEFTRIAXONE. MEDICATIONS AT HOME: Included Lopressor 50 mg q. 12; digoxin 250 mcg Friday, Friday, Friday; PhosLo; and Eliquis. REVIEW OF SYSTEMS: All systems are reviewed, pertinent positives as mentioned in the history of presenting illness, rest unremarkable. PHYSICAL EXAMINATION: GENERAL: Elderly male, lying in bed. VITAL SIGNS: Blood pressure 104/61, heart rate 86, respiratory rate 18, temperature 97.5. HEENT: Normocephalic, atraumatic, positive pallor. NECK: Supple, no JVD. LUNGS: Bilateral equal entry, bilateral equal expansion. CARDIAC: S1, S2, regular rate and rhythm, no murmur, no rub. ABDOMEN: Distended, soft, tenderness in the right lower quadrant. Superficially the incision seems fine, but there is extreme tenderness underneath the incision. There seems to be a little mass or collection underneath the incision. Bowel sounds present. EXTREMITIES: No lower extremity edema. LABORATORY DATA: WBC 16.9, hemoglobin 10.5, hematocrit 33, platelets 380, polys 86, lymphs 6.7. Sodium 136, potassium 4.2, chloride 90, CO2 29, BUN 56, creatinine 9.0, glucose 170, calcium 8.8, phosphorus 5.4, magnesium 1.9. AST 71, ALT 18, albumin 3.9. Urinalysis, yellow, cloudy, pH 7.0, specific gravity 1.020, protein greater than 300, blood small, moderate leukocyte esterase, wbc's too numerous to count. CT of the abdomen as reported in HPI. ASSESSMENT: 1. Incisional abscess, wound dehiscence. 2. Perirectal abscess? 3. Collection in the right renal fossa? 4. Sepsis. 5. Leukocytosis. 6. End-stage renal disease. 7. Low blood pressure. 8. Paroxysmal atrial fibrillation. PLAN: 1. Case discussed with Dr. Moncada, who thinks there is wound dehiscence. 2. Case discussed with Dr. Ariza, the operating surgeon. 3. Case discussed with Dr. Frost. 4. The patient will be transferred to [facility] after dialysis today. Ana Ochoa MD
[2019-03-03] MEDS ORDERED: Digoxin 250 mcg (0.25 mg) Tab PO SCH (10:00)
== END 2019-03-01 21:27 | disposition short-term general hospital (02) | DRG 862 ==
LOC: ED 04:16 → ERH 06:48 → 5RNO 08:28
PROVIDERS: ADMIT Internal Medicine; ATTEND Internal Medicine
DX: T81.49XA Infection following a procedure, other surgical site, initial encounter (principal); N18.6 End stage renal disease; L02.211 Cutaneous abscess of abdominal wall; K61.1 Rectal abscess; T81.30XA Disruption of wound, unspecified, initial encounter; N13.6 Pyonephrosis; I12.0 Hypertensive chronic kidney disease with stage 5 chronic kidney disease or end stage renal disease; E11.22 Type 2 diabetes mellitus with diabetic chronic kidney disease; I25.10 Atherosclerotic heart disease of native coronary artery without angina pectoris; I48.0 Paroxysmal atrial fibrillation; J44.9 Chronic obstructive pulmonary disease, unspecified; Z99.2 Dependence on renal dialysis; E11.42 Type 2 diabetes mellitus with diabetic polyneuropathy; E11.51 Type 2 diabetes mellitus with diabetic peripheral angiopathy without gangrene; K59.00 Constipation, unspecified; D64.9 Anemia, unspecified; Z90.5 Acquired absence of kidney; Z79.01 Long term (current) use of anticoagulants; Y83.6 Removal of other organ (partial) (total) as the cause of abnormal reaction of the patient, or of later complication, without mention of misadventure at the time of the procedure; Z87.891 Personal history of nicotine dependence; Z95.5 Presence of coronary angioplasty implant and graft; Z95.0 Presence of cardiac pacemaker; Z87.440 Personal history of urinary (tract) infections; Z87.442 Personal history of urinary calculi